=== PATIENT | female | born 1990 | race Caucasian/White ===

== ENCOUNTER 2024-01-06 08:25 | Outpatient (OUT) | payer OTHER, SELFPAY ==
--- NOTE | 2024-01-06 08:28 | US_ITS ---
[address] [address] Patient Name: JEANNETTE CHOI MRN: [id number] date: 1990 Sex: F Assigned Patient Location: [facility] Current Patient Location: [facility] Accession/Order Number: [id number] Exam Date: 01/06/2024 08:28 Report Date: 01/06/2024 09:13 At the request of: JORGE LUIS BRADSHAW Procedure: US OB transvaginal EXAMINATION: US OB transvaginal HISTORY: MISSED MENSES COMPARISON: No relevant comparison available. FINDINGS: GESTATIONAL SAC: Present and normal appearing. YOLK SAC: Present and normal appearing. POLE: Present and normal appearing. CARDIAC: Present. UTERUS: Normal size and appearance. OVARIES: Right: Normal. Left: Normal. CERVIX: 4.8 cm in length and closed. CUL-DE-SAC: Normal. OTHER: None. AGE BY LMP: 8 weeks 5 days ARMANI BY LMP: 08/12/2024 AGE BY US CRL: 8 weeks 2 days ARMANI BY US CRL: 08/15/2024 US/US OB transvaginal IMPRESSION: 1. Single live intrauterine . Electronically authenticated by: SALMA DESHPANDE Date: 01/06/2024 09:13
== END 2024-01-06 08:26 | disposition home or self-care (01) ==
LOC: NOMS 08:25
PROVIDERS: Visit Provider Obstetrics & Gynecology
DX: Z34.91 Encounter for supervision of normal pregnancy, unspecified, first trimester (principal); Z3A.08 8 weeks gestation of pregnancy; N92.6 Irregular menstruation, unspecified
CPT/HCPCS: 76817

== ENCOUNTER 2024-01-27 15:27 | Outpatient (OUT) | payer OTHER, SELFPAY ==
[2024-01-27 15:53] LABS: Basophils Percent Auto 0.4 % (0.2-2.0); Eosinophils Absolute Auto 0.1 10^3/uL (0.0-0.7); Eosinophils Percent Auto 1.1 % (0.9-7.0); Hematocrit 40.3 % (36.0-48.0); Hemoglobin 13.3 g/dL (12.0-16.0); Immature Granulocytes Abs Auto 0.04 10^3/uL (0.00-0.03); Immature Granulocytes Pct Auto 0.4 % (0.0-0.5); Lymphocytes Absolute Auto 2.2 10^3/uL (1.2-3.8); Lymphocytes Percent Auto 19.6 % (20.5-60.0); Mean Corpuscular Hemoglobin 30.8 pg (26.7-34.0); Mean Corpuscular Volume 93.3 fL (81.0-99.0); Mean Platelet Volume 9.5 fL (9.5-13.5); Monocytes Absolute Auto 0.8 10^3/uL (0.3-0.8); Monocytes Percent Auto 6.7 % (1.7-12.0); Neutrophils Absolute Auto 8.1 10^3/uL (1.4-6.5); Neutrophils Percent Auto 71.8 % (43.0-75.0); Platelet Count 329 10^3/uL (150-450); Red Blood Count 4.32 10^6/uL (4.20-5.40); Red Cell Distribution Width 12.9 % (11.0-15.0); White Blood Count 11.3 10^3/uL (4.0-11.0)
[2024-01-27 16:09] LABS: Estimated Average Glucose 108 mg/dL; Glycohemoglobin A1C 5.4 % (4.5-6.2)
[2024-01-29 08:08] LABS: HBsAg Screen Negative (Negative); HCV Ab Non Reactive (Non Reactive); HIV Ab/p24 Ag Screen Non Reactive (Non Reactive); Rubella Antibodies, IgG 9.62 index (Immune >0.99)
[2024-01-29 09:07] LABS: Rapid Plasma Reagin, Quant Non Reactive titer (NonRea<1:1)
== END 2024-01-27 15:28 | disposition home or self-care (01) ==
LOC: LAB 15:27
PROVIDERS: Visit Provider Obstetrics & Gynecology
DX: O26.819 Pregnancy related exhaustion and fatigue, unspecified trimester (principal); N92.6 Irregular menstruation, unspecified; Z3A.00 Weeks of gestation of pregnancy not specified
CPT/HCPCS: 36415; 83036; 85025; 86592; 86762; 86803; 86850; 86900; 86901; 87086; 87340; 87389

== ENCOUNTER 2024-03-05 21:30 | Outpatient (REF) | payer OTHER, SELFPAY ==
--- OUTSIDE RECORDS SUMMARY | 2024-03-05 21:33 | XMS_ITS | CCD ---
Author Organization [facility]ini[facility] Care Team Providers Care Global Supply Chain Director Name Role Phone HARSHAL, DR STEVENS Attending Unavailable KARASIK, DR STEVENS Admitting Unavailable KARASIK, DR STEVENS Attending Unavailable KARASIK, DR STEVENS Admitting Unavailable LEEANN, DR KANG Consulting Unavailable LEEANN, DR KANG Attending Unavailable LEEANN, DR KANG Admitting Unavailable LEEANN, DR KANG Procedure Practitioner Unavailab le LEEANN, DR KANG Attending Unavailable LEEANN, DR KANG Admitting Unavailable LEEANN, DR KANG Attending Unavailable LEEANN, DR KANG Admitting Unavailable KARASIK, DR STEVENS Attending Unavailable KARASIK, DR STEVENS Admitting Unavailable KARASIK, DR STEVENS Consulting Unavailable KARASIK, DR STEVENS Attending Unavailable KARASIK, DR STEVENS Admitting Unavailable KARASIK, DR STEVENS Consulting Unavailable KARASIK, DR STEVENS Attending Unavailable KARASIK, DR STEVENS Admitting Unavailable KARASIK, DR STEVENS Consulting Unavailable KARASIK, DR STEVENS Attending Unavailable KARASIK, DR STEVENS Admitting Unavailable WEST, DR ALONSO Deleon Consulting Unavailable KARASIK, DR STEVENS Consulting Unavailable KARASIK, DR STEVENS Attending Unavailable KARASIK, DR STEVENS Admitting Unavailable WEST, DR ALONSO Deleon Consulting Unavailable KARASIK, DR STEVENS Consulting Unavailable KARASIK, DR STEVENS Attending Unavailable KARASIK, DR STEVENS Admitting Unavailable KARASIK, DR STEVENS Consulting Unavailable KARASIK, DR STEVENS Attending Unavailable KARASIK, DR STEVENS Admitting Unavailable KARASIK, DR STEVENS Consulting Unavailable KARASIK, DR STEVENS Attending Unavailable KARASIK, DR STEVENS Admitting Unavailable KARASIK, DR STEVENS Consulting Unavailable KARASIK, DR STEVENS Attending Unavailable KARASIK, DR STEVENS Admitting Unavailable KARASIK, DR STEVENS Consulting Unavailable KARASIK, DR STEVENS Attending Unavailable KARASIK, DR STEVENS Admitting Unavailable HARSHAL, DR STEVENS Consulting Unavailable HARSHAL, DR STEVENS Attending Unavailable HARSHAL, DR STEVENS Admitting Unavailable JORGE LUIS BRADSHAW Attending Unavailable EMILY WHITMORE Attending Unavailable EMILY WHITMORE Referring Unavailable EMILY WHITMORE Attending Unavailable EMILY WHITMORE Attending Unavailable DOLKAYLEE, EMILY Grimaldo Attending Unavailable JORGE LUIS BRADSHAW Attending Unavailable Allergies Allergy Classification Reported Allergen(s) Allergy Type Date of Onset Reaction(s) Facility (1 source) Penicillin Drug Allergy [facility] Repository Problems Active Problems Problem Classification Problem Date Documented Date Episodic/Chronic Menstrual disorders (4 sources) Irregular menstruation, unspecified; Translations: [IRREGULAR MENSTRUATION UNSPECIFIED] Onset: 06-23-2021 Chronic Other female genital disorders (4 sources) Unspecified dyspareunia; Translations: [UNSPECIFIED DYSPAREUNIA] Onset: 03-24-2022 Chronic Other screening for suspected conditions (not mental disorders or infectious disease) (18 sources) Encounter for screening for lipoid disorders; Translations: [Encounter for screening for Streptococcus B] Onset: 06-28-2021 Episodic Past or Other Problems Problem Classification Problem Date Documented Date Episodic/Chronic Diabetes mellitus without complication (4 sources) Hyperglycemia, unspecified; Translations: [HYPERGLYCEMIA UNSPECIFIED] Onset: 2021 Episodic Immunizations and screening for infectious disease (1 source) Contact with and (suspected) exposure to infections with a predominantly sexual mode of transmission; Translations: [CONTCT W EXPOS INFECT SEXUAL TRNSMS] Onset: 06-28-2021 Episodic OB-related trauma to perineum and vulva (1 source) Second degree perineal laceration during delivery; Translations: [SECOND DEG PERINEAL LAC DUR DELIV] Onset: 01-12-2022 Episodic Other and delivery including normal (20 sources) Encounter for care and examination of lactating mother; Translations: [Encounter for routine follow-up] Onset: 06-21-2021 Episodic Residual codes; unclassified (1 source) 39 weeks gestation of ; Translations: [39 WEEKS GESTATION OF ] Onset: 01-12-2022 Episodic Results Test Name Value Interpretation Reference Range Facility LIPID PROFILEon 03-29-2022 CHOL-HDL RATIO NORM SEE BELOW Normal [facility] Comment on above: Result Comment: 3.3 - 4.4 LOW RISK 4.4 - 7.1 AVERAGE RISK 7.1 - 11.0 MODERATE RISK >11.0 HIGH RISK Performed By: #### L IPID #### [facility] [address] [address] [address] Parth Lucero Cholesterol [Mass/Vol] 197 mg/dL Normal <=200 [facility] Comment on above: Performed By: #### L IPID #### [facility] [address] [address] [address] Parth Lucero Cholesterol in HDL [Mass/Vol] 66 mg/dL Critically high 40-60 [facility] Comment on above: Performed By: #### L IPID #### [facility] [address] [address] [address] Parth Lucero Cholesterol in LDL [Mass/Vol] 120.0 mg/dL Normal [facility] Comment on above: Performed By: #### L IPID #### [facility] [address] [address] [address] Parth Lucero Cholesterol.total/Cho lesterol in HDL [Mass ratio] 3.0 {ratio} Normal [facility] Comment on above: Performed By: #### L IPID #### [facility] [address] [address] [address] Parth Lucero HDL NORMAL > or = 60 mg/dl - LO W CARDIOVASCULAR RISK <40 mg/dl - HIGH CARDIOVASCULAR RISK Normal [facility] Comment on above: Performed By: #### L IPID #### [facility] [address] [address] [address] Parth Lucero LDL CALC NORMAL SEE BELOW Normal [facility] Comment on above: Result Comment: <100 mg/dl OPTIMAL 100 - 129 mg/dl NEAR OR ABOVE OPTIMAL 130 - 159 mg/dl BORDERLINE HIGH 160 - 189 mg/dl HIGH >190 mg/dl VERY HIGH Performed By: #### L IPID #### [facility] [address] [address] [address] Parth Lucero Triglyceride [Mass/Vol] 55 mg/dL Normal <=150 [facility] Comment on above: Performed By: #### L IPID #### [facility] [address] [place] [address] Dr. Parth Lucero VLDL CALC 11.0 mg/dL Normal [facility] Comment on above: Performed By: #### L IPID #### [facility] [address] [place] [address] Dr. Parth Lucero CBC AUTO DIFFon 01-08-2022 BASO # 0.0 103/ul Normal 0.0-0.1 [facility] Comment on above: Performed By: #### [id number] #### [facility] [address] [place] [address] Dr. Parth Lucero Basophils/100 WBC (Bld) 0.3 % Normal 0.2-2.0 [facility] Comment on above: Performed By: #### 4 [id number] #### [facility] [address] [place] [address] Dr. Parth Lucero EO # 0.1 103/ul Normal 0.0-0.7 [facility] Comment on above: Performed By: #### 4 [id number] #### [facility] [address] [place] [address] Dr. Parth Lucero Eosinophils/100 WBC (Bld) 0.4 % Critically low 0.9-7.0 [facility] Comment on above: Performed By: #### 4 [id number] #### [facility] [address] [place] [address] Dr. Parth Lucero Erythrocyte distribution width (RBC) [Ratio] 13.4 % Normal 11.0-15.0 [facility] Comment on above: Performed By: #### [id number] #### [facility] [address] [place] [address] Dr. Parth Lucero Hematocrit (Bld) [Volume fraction] 36.0 % Normal 36.0-48.0 [facility] Comment on above: Performed By: #### 4 [id number] #### [facility] [address] [place] [address] Dr. Parth Lucero Hemoglobin (Bld) [Mass/Vol] 12.1 g/dL Normal 12.0-16.0 [facility] Comment on above: Performed By: #### 4 [id number] #### [facility] [address] [address] [address] Parth Lucero IG # 0.10 10e3/ul Critically high 0.00-0.03 [facility] Comment on above: Performed By: #### 4 [id number] #### [facility] [address] [address] [address] Parth Lucero IG % 0.7 % Critically high 0.0-0.5 [facility] Comment on above: Performed By: #### 4 [id number] #### [facility] [address] [address] [address] Parth Lucero LYMPH # 2.1 103/ul Normal 1.2-3.8 [facility] Comment on above: Performed By: #### 4 [id number] #### [facility] [address] [place] [address] Dr. Parth Lucero Lymphocytes/100 WBC (Bld) 14.0 % Critically low 20.5-60.0 [facility] Comment on above: Performed By: #### 4 [id number] #### [facility] [address] [address] [address] Parth Lucero MANUAL DIFF REQ NO Normal [facility] Comment on above: Performed By: #### 4 [id number] #### [facility] [address] [address] [address] Parth Lucero MCH (RBC) [Entitic mass] 31.0 pg Normal 26.7-34.0 [facility] Comment on above: Performed By: #### [id number] #### [facility] [address] [address] [address] Parth Lucero MCHC (RBC) [Mass/Vol] 33.6 g/dL Normal 29.9-35.2 [facility] Comment on above: Performed By: #### 4 [id number] #### [facility] [address] [address] [address] Parth Lucero MCV (RBC) [Entitic vol] 92.3 fL Normal 81.0-99.0 [facility] Comment on above: Performed By: #### 4 [id number] #### [facility] [address] [place] [address] Dr. Parth Lucero MONO # 1.2 103/ul Critically high 0.3-0.8 [facility] Comment on above: Performed By: #### 4 [id number] #### [facility] [address] [place] [address] Dr. Parth Lucero Monocytes/100 WBC (Bld) 7.7 % Normal 1.7-12.0 [facility] Comment on above: Performed By: #### 4 [id number] #### [facility] [address] [place] [address] Dr. Parth Lucero NEUT # 11.7 103/ul Critically high 1.4-6.5 [facility] Comment on above: Performed By: #### 4 [id number] #### [facility] [address] [place] [address] Dr. Parth Lucero Neutrophils/100 WBC (Bld) 76.9 % Critically high 43.0-75.0 [facility] Comment on above: Performed By: #### 4 [id number] #### [facility] [address] [place] [address] Dr. Parth Lucero Platelet mean volume (Bld) [Entitic vol] 10.0 fL Normal 9.5-13.5 [facility] Comment on above: Performed By: #### 4 [id number] #### [facility] [address] [place] [address] Dr. Parth Lucero PLT 231 103/ul Normal 150-450 [facility] Comment on above: Performed By: #### 4 [id number] #### [facility] [address] [place] [address] Dr. Parth Lucero RBC 3.90 106/ul Critically low 4.20-5.40 [facility] Comment on above: Performed By: #### 4 [id number] #### [facility] [address] [place] [address] Dr. Parth Lucero WBC 15.2 103/ul Critically high 4.0-11.0 [facility] Comment on above: Performed By: #### 4 [id number] #### [facility] [address] [place] [address] Dr. Parth Lucero CBC AUTO DIFFon 01-07-2022 BASO # 0.0 103/ul Normal 0.0-0.1 [facility] Comment on above: Performed By: #### C BC #### [facility] [address] [place] [address] Dr. Parth Lucero Basophils/100 WBC (Bld) 0.4 % Normal 0.2-2.0 [facility] Comment on above: Performed By: #### C BC #### [facility] [address] [place] [address] Dr. Parth Lucero EO # 0.1 103/ul Normal 0.0-0.7 [facility] Comment on above: Performed By: #### C BC #### [facility] [address] [place] [address] Dr. Parth Lucero Eosinophils/100 WBC (Bld) 1.1 % Normal 0.9-7.0 [facility] Comment on above: Performed By: #### C BC #### [facility] [address] [place] [address] Dr. Parth Lucero Erythrocyte distribution width (RBC) [Ratio] 13.3 % Normal 11.0-15.0 [facility] Comment on above: Performed By: #### C BC #### [facility] [address] [place] [address] Dr. Parth Lucero Hematocrit (Bld) [Volume fraction] 39.2 % Normal 36.0-48.0 [facility] Comment on above: Performed By: #### C BC #### [facility] [address] [place] [address] Dr. Parth Lucero Hemoglobin (Bld) [Mass/Vol] 13.3 g/dL Normal 12.0-16.0 [facility] Comment on above: Performed By: #### C BC #### [facility] [address] [place] [address] Dr. Parth Lucero IG # 0.10 10e3/ul Critically high 0.00-0.03 [facility] Comment on above: Performed By: #### C BC #### [facility] [address] [place] [address] Dr. Parth Lucero IG % 1.0 % Critically high 0.0-0.5 [facility] Comment on above: Performed By: #### C BC #### [facility] [address] [place] [address] Dr. Parth Lucero LYMPH # 1.8 103/ul Normal 1.2-3.8 [facility] Comment on above: Performed By: #### C BC #### [facility] [address] [place] [address] Dr. Parth Lucero Lymphocytes/100 WBC (Bld) 18.0 % Critically low 20.5-60.0 [facility] Comment on above: Performed By: #### C BC #### [facility] [address] [place] [address] Dr. Parth Lucero MANUAL DIFF REQ NO Normal [facility] Comment on above: Performed By: #### C BC #### [facility] [address] [place] [address] Dr. Parth Lucero MCH (RBC) [Entitic mass] 31.1 pg Normal 26.7-34.0 [facility] Comment on above: Performed By: #### C BC #### [facility] [address] [place] [address] Dr. Parth Lucero MCHC (RBC) [Mass/Vol] 33.9 g/dL Normal 29.9-35.2 [facility] Comment on above: Performed By: #### C BC #### [facility] [address] [place] [address] Dr. Parth Lucero MCV (RBC) [Entitic vol] 91.8 fL Normal 81.0-99.0 [facility] Comment on above: Performed By: #### C BC #### [facility] [address] [place] [address] Dr. Parth Lucero MONO # 1.1 103/ul Critically high 0.3-0.8 [facility] Comment on above: Performed By: #### C BC #### [facility] [address] [place] [address] Dr. Parth Lucero Monocytes/100 WBC (Bld) 11.3 % Normal 1.7-12.0 [facility] Comment on above: Performed By: #### C BC #### [facility] [address] [place] [address] Dr. Parth Lucero NEUT # 6.9 103/ul Critically high 1.4-6.5 [facility] Comment on above: Performed By: #### C BC #### [facility] [address] [place] [address] Dr. Parth Lucero Neutrophils/100 WBC (Bld) 68.2 % Normal 43.0-75.0 [facility] Comment on above: Performed By: #### C BC #### [facility] [address] [place] [address] Dr. Parth Lucero Platelet mean volume (Bld) [Entitic vol] 10.6 fL Normal 9.5-13.5 [facility] Comment on above: Performed By: #### C BC #### [facility] [address] [place] [address] Dr. Parth Lucero PLT 258 103/ul Normal 150-450 [facility] Comment on above: Performed By: #### C BC #### [facility] [address] [place] [address] Dr. Parth Lucero RBC 4.27 106/ul Normal 4.20-5.40 [facility] Comment on above: Performed By: #### C BC #### [facility] [address] [place] [address] Dr. Parth Lucero WBC 10.1 103/ul Normal 4.0-11.0 [facility] Comment on above: Performed By: #### C BC #### [facility] [address] [place] [address] Dr. Parth Lucero [facility]19 SARS-CoV-2 (COVID-19) RNA RIGOBERTO+probe Ql (Unsp spec) Not detected Normal NOT DETECTED [facility] Comment on above: Result Comment: When diagnostic testing is negative, the possibility of a false negative should be considered in the context of a patient's recent exposures and the presence of clinical signs and symptoms consistent with SARS-CoV-2. This test is not yet approved or cleared by the [place] FDA. When there are no FDA-approved or cleared tests available, and other criteria are met, FDA can make tests available under an emergency access mechanism called an Emergency Use Authorization (EUA). The EUA for this test is supported by the [employer] of Health and Human Service's declaration that circumstances exist to justify the emergency use of in vitro diagnostics for the detection and/or diagnosis of the virus that causes COVID-19. This EUA will remain in effect for the duration of the COVID-19 declaration justifying emergency of IVDs, unless it is terminated or revoked by the FDA (after which the test may no longer be used). Performed By: #### 4 [id number] #### [facility] [address] [place] [address] Dr. Parth Lucero DRUG SCREEN RAPID (URINE)on 01-07-2022 AMP Negative Normal NEGATIVE [facility] Comment on above: Performed By: #### L IPID #### [facility] [address] [place] [address] Dr. Parth Lucero BAR Negative Normal NEGATIVE [facility] Comment on above: Performed By: #### L IPID #### [facility] [address] [place] [address] Dr. Parth Lucero BUP Negative Normal NEGATIVE [facility] Comment on above: Performed By: #### L IPID #### [facility] [address] [place] [address] Dr. Parth Lucero BZO Negative Normal NEGATIVE [facility] Comment on above: Performed By: #### L IPID #### [facility] [address] [place] [address] Dr. Parth Lucero AMINTA Negative Normal NEGATIVE [facility] Comment on above: Performed By: #### L IPID #### [facility] [address] [place] [address] Dr. Parth Lucero CUT-OFFS SEE BELOW Normal [facility] Comment on above: Result Comment: AMP (Amphetamine): 500ng/mL, BAR (Barbituates): 200 ng/mL, BZO (Benzodiazepines): 150 ng/mL, BUP (Buprenorphine): 10 ng/mL, AMINTA (Cocaine): 150 ng/mL, mAMP (Methamphetamine): 500 ng/mL, MTD (Methadone): 200 ng/mL, OPI (Opiates): 100 ng/mL, OXY (Oxycodone): 100 ng/mL, PCP (Phencyclidine): 25 ng/mL, PPX (Propoxyphene): 300 ng/mL, THC (Cannabinoids): 50 ng/mL, TCA (Trycyclic Antidepressants): 300 ng/mL Performed By: #### L IPID #### [facility] [address] [place] [address] Dr. Parth Lucero DRUG CUT HEADER DRUG CLASS TEST SYSTEM CUT-OFF CONCENTRATIONS ARE FOLLOWS: Normal [facility] Comment on above: Performed By: #### L IPID #### [facility] [address] [place] [address] Dr. Parth Lucero mAMP Negative Normal NEGATIVE [facility] Comment on above: Performed By: #### L IPID #### [facility] [address] [place] [address] Dr. Parth Lucero MTD Negative Normal NEGATIVE [facility] Comment on above: Performed By: #### L IPID #### [facility] [address] [place] [address] Dr. Parth Lucero OPI Negative Normal NEGATIVE [facility] Comment on above: Performed By: #### L IPID #### [facility] [address] [place] [address] Dr. Parth Lucero OXY Negative Normal NEGATIVE [facility] Comment on above: Performed By: #### L IPID #### [facility] [address] [place] [address] Dr. Parth Lucero PCP Negative Normal NEGATIVE [facility] Comment on above: Performed By: #### L IPID #### [facility] [address] [place] [address] Dr. Parth Lucero PPX Negative Normal NEGATIVE [facility] Comment on above: Performed By: #### L IPID #### [facility] [address] [place] [address] Dr. Parth Lucero TCA Negative Normal NEGATIVE [facility] Comment on above: Performed By: #### L IPID #### [facility] [address] [address] [address] Parth Lucero THC Negative Normal NEGATIVE [facility] Comment on above: Performed By: #### L IPID #### [facility] [address] [place] [address] Dr. Parth Lucero TYPE AND SCREENon 01-07-2022 TYPE AND SCREEN Negative Normal [facility] Comment on above: Performed By: #### T NS #### [facility] [address] [place] [address] Dr. Parth Lucero GROUP B STREP CULTUREon 11-19 S. agalactiae Ag Ql (Unsp spec) Culture Observations: NEGATIVE FOR GROUP B STREPTOCOCCUS. Normal [facility] Comment on above: Performed By: #### 4 [id number] #### [facility] [address] [place] [address] Dr. Parth Lucero GTT 3 HR PREGon 2021 Glucose [Mass/Vol] 93 mg/dL Normal 74-106 [facility] Comment on above: Performed By: #### G TT3P #### [facility] [address] [place] [address] Dr. Parth Lucero Glucose [Mass/Vol] 173 mg/dL Normal [facility] Comment on above: Performed By: #### G TT3P #### [facility] [address] [place] [address] Dr. Parth Lucero Glucose [Mass/Vol] 149 mg/dL Normal [facility] Comment on above: Performed By: #### G TT3P #### [facility] [address] [place] [address] Dr. Parth Lucero Glucose [Mass/Vol] 128 mg/dL Normal [facility] Comment on above: Performed By: #### G TT3P #### [facility] [address] [place] [address] Dr. Parth Lucero GLUCOSE - 1HRon 10-09-2021 Glucose [Mass/Vol] 150 mg/dL Critically high 74-106 T [facility] Comment on above: Performed By: #### G LU1HR #### [facility] [address] [place] [address] Dr. Parth Lucero HEMOGRAM AND PLATELon 2021 Hematocrit (Bld) [Volume fraction] 37.6 % Normal 36.0-48.0 [facility] Comment on above: Performed By: #### H H #### [facility] [address] [place] [address] Dr. Parth Lucero Hemoglobin (Bld) [Mass/Vol] 12.3 g/dL Normal 12.0-16.0 [facility] Comment on above: Performed By: #### H H #### [facility] [address] [place] [address] Dr. Parth Lucero MCH (RBC) [Entitic mass] 31.2 pg Normal 26.7-34.0 [facility] Comment on above: Performed By: #### H H #### [facility] [address] [place] [address] Dr. Parth Lucero MCHC (RBC) [Mass/Vol] 32.7 g/dL Normal 29.9-35.2 [facility] Comment on above: Performed By: #### H H #### [facility] [facility] [address] [place] [address] Dr. Parth Lucero MCV (RBC) [Entitic vol] 95.4 fL Normal 81.0-99.0 [facility] Comment on above: Performed By: #### H H #### [facility] [address] [place] [address] Dr. Parth Lucero PLT 240 103/ul Normal 150-450 [facility] Comment on above: Performed By: #### H H #### [facility] [address] [place] [address] Dr. Parth Lucero RBC 3.94 106/ul Critically low 4.20-5.40 [facility] Comment on above: Performed By: #### H H #### [facility] [address] [place] [address] Dr. Parth Lucero WBC 9.7 103/ul Normal 4.0-11.0 [facility] Comment on above: Performed By: #### H H #### [facility] [address] [place] [address] Dr. Parth Lucero PAP ACOG PANEL 2: 21 to 29on 09-02-2021 . . Normal [facility] Comment on above: Performed By: #### 4 [id number] #### [facility] [address] [place] [address] Dr. Parth Lucero Age Gdln ACOG Testing - [facility] Comment on above: Performed By: #### [id number] #### [facility] [address] [place] [address] Dr. Parth Lucero DIAGNOSIS: Comment [facility] Comment on above: Result Comment: NEGA TIVE FOR INTRAEPITHELIAL LESION OR MALIGNANCY. Performed By: #### 4 [id number] #### [facility] [address] [place] [address] Dr. Parth Lucero Methodology: Comment [facility] Comment on above: Result Comment: This liquid based ThinPrep(R) pap test was screened with the use of an image guided system. Performed By: #### 4 [id number] #### [facility] [address] [place] [address] Dr. Parth Lucero Note: Comment [facility] Comment on above: Result Comment: The Pap smear is a screening test designed to aid in the detection of premalignant and malignant conditions of the uterine cervix. It is not a diagnostic procedure and should not be used as the sole means of detecting cervical cancer. Both false-positive and false-negative reports do occur. . Performed By: #### [id number] #### [facility] [address] [place] [address] Dr. Parth Lucero Performed by: Comment [facility] Comment on above: Result Comment: Vivian Paris, Jewel Bearing Turner (ASCP) Performed By: #### 4 [id number] #### [facility] [address] [address] [address] Parth Lucero Reflex Criteria: Comment Normal [facility] Comment on above: Result Comment: The HPV DNA reflex criteria were not met with this specimen result therefore, no HPV testing was performed. . Performed By: #### 4 [id number] #### [facility] [address] [address] [address] Parth Lucero Specimen adequacy: Comment Normal [facility] Comment on above: Result Comment: Sati sfactory for evaluation. No endocervical component is identified. Performed By: #### 4 [id number] #### [facility] [address] [address] [address] Parth Lucero US PREG ANATOMY SINGLEon US PREG ANATOMY SINGLE EXAMINATION: US PREG ANATOMY SINGLE HISTORY: anatomy study COMPARISON: 06/15/2021 TECHNIQUE: Transabdominal sonographic examination was performed for obstetrical and evaluation. FINDINGS: Number: 1 Heart Rate: 150 H.B. /min Amniotic Fluid Volume: Subjectively normal position: Cephalic presentation, longitudinal lie Placental Location: Anterior, grade 0. Placental edge 6.5 cm from the cervical os Cervix Length: 4.4 cm, closed Normal structures: Cerebellum. Choroid plexus. Cisterna magna. Lateral cerebral ventricles. Orbits. Midline falx. Hard palate. 4-chamber heart. RVOT. LVOT. Stomach. Kidneys. Bladder. Umbilical cord insertion into abdomen. 3 vessel cord. Cervical spine. Thoracic spine. Lumbar spine. Sacral spine. Right upper extremity. Left upper extremity. Right lower extremity. Left lower extremity. Suboptimally seen: None. Abnormalities/Other: None BIOMETRY: BPD: 5.1 cm 21 weeks 3 days HC: 18.4 cm 20 weeks 5 days AC: 15.7 cm 20 weeks 6 days FL: 3.7 cm 21 weeks 4 days EFW:14 ounces, 47% by ultrasound, 56% by expected EDC; FL/AC: 0.941101 FL/BPD: 0.732325 HC/AC: 1.480492 GESTATIONAL AGE: Age by EDC: 21 weeks 0 days ARMANI by EDC: 01/12/2022 Age by current US: 20 weeks 1 day ARMANI by current US: 01/11/2022 IMPRESSION: Normal anatomy scan *Reference: [employer] Practice Guideline for the performance of Obstetric Ultrasound Examinations, March 20, 2007. Electronically authenticated by: ALONSO SANDERS Date: 2021-09-01 16:20 Normal [facility] CHLAMYDIA/GONOCOCCUS RIGOBERTO (SW AB/URINE/PAPon 08-29-2021 Chlamydia trachomatis, RIGOEBRTO Negative Normal Negative [facility] Comment on above: Performed By: #### L IPID #### [facility] [address] [address] [address] Parth Lucero Neisseria gonorrhoeae, RIGOBERTO Negative Normal Negative [facility] Comment on above: Performed By: #### L IPID #### [facility] [address] [address] [address] Parth Lucero AFP MATERNAL FOR SPINA BIFID Aon 08-18-2021 AFP MoM 1.13 Normal [facility] Comment on above: Performed By: #### [id number] #### [facility] [address] [address] [address] Parth Lucero AFP Value 52.2 ng/mL Normal [facility] Comment on above: Performed By: #### 4 [id number] #### [facility] [address] [address] [address] Parth Lucero AFP, Serum for Spina Bifida Report Normal [facility] Comment on above: Performed By: #### 4 [id number] #### [facility] [address] [address] [address] Parth Lucero Comment Comment Normal [facility] Comment on above: Result Comment: Ruth Viveros, Ph.D., [facility] Director . References: Available Upon Request. . Multiples Of Median Cutoffs For AFP Elevations Ricardo 2.5 Black 2.8 IDD 2.0 Twins 4.5 Abbreviation Definitions IDD - Insulin Dep Diabetes OSBR - Open Spina Bifida Risk . For further inquiries contact [facility] at [phone]. Performed By: #### 4 [id number] #### [facility] [address] [address] [address] Parth Lucero Gest Age Collection Date 18.0 weeks Normal [facility] Comment on above: Performed By: #### 4 [id number] #### [facility] [address] [place] [address] Dr. Parth Lucero Gestat, Age Based on LMP Normal [facility] Comment on above: Result Comment: Reca lculations are not recommended when gestational dating by LMP and ultrasound are within 10 days. Performed By: #### 4 [id number] #### [facility] [address] [place] [address] Dr. Parth Lucero Insulin Dep Diabetes No Normal [facility] Comment on above: Performed By: #### 4 [id number] #### [facility] [address] [place] [address] Dr. Parth Lucero Interpretation Comment Normal [facility] Comment on above: Result Comment: Inte rpretation: Screen Negative . This result is screen negative for OSB. The AFP MoM calculated is based on the gestational age provided. MS-AFP can identify up to 80% of open neural tube defects. Closed neural tube defects and some open defects may not be detected by this test. This test does not screen for Down Syndrome or Trisomy 18. If screening for Down Syndrome or Trisomy 18 is desired, contact [facility] [employer] [facility] to discuss available options. The [employer] recommends amniocentesis be offered to women age 35 and older. Performed By: #### 4 [id number] #### [facility] [address] [place] [address] Dr. Parth Lucero [age] Normal [facility] Comment on above: Performed By: #### 4 [id number] #### [facility] [address] [place] [address] Dr. Parth Lucero Multiple Gestation No Normal [facility] Comment on above: Performed By: #### 4 [id number] #### [facility] [address] [place] [address] Dr. Parth Lucero OSBR Risk 1 IN 8106 Normal [facility] Comment on above: Performed By: #### 4 [id number] #### [facility] [address] [place] [address] Dr. Parth Lucero PDF . Normal [facility] Comment on above: Result Comment: This test was developed and its performance characteristics determined by [employer]. It has not been cleared or approved by the Food and Drug Administration. Performed By: #### 4 [id number] #### [facility] [address] [place] [address] Dr. Parth Lucero Race Normal [facility] Comment on above: Performed By: #### 4 [id number] #### [facility] [address] [place] [address] Dr. Parth Lucero Test Results: Negative Normal [facility] Comment on above: Performed By: #### 4 [id number] #### [facility] [address] [place] [address] Dr. Parth Lucero HEP B SURFACE ANTIGEN SCREEN on 06-25-2021 HBsAg Screen Negative Normal Negative [facility] Comment on above: Performed By: #### H BSANS #### [facility] [address] [place] [address] Dr. Parth Lucero HEPATITIS C VIRUS AB W/ REFL EX QUANTon 06-25-2021 HCV AB <0.1 Normal 0.0-0.9 [facility] Comment on above: Performed By: #### 4 [id number] #### [facility] [address] [place] [address] Dr. Parth Lucero Interpretation: Comment Normal [facility] Comment on above: Result Comment: Nega tive Not infected with HCV, unless recent infection is suspected or other evidence exists to indicate HCV infection. Performed By: #### 4 [id number] #### [facility] [address] [place] [address] Dr. Parth Lucero HIV 1 AND 2 WITH REFLEXon HIV Screen 4th Generation wRfx Non-Reactive Normal Non Reactive [facility] Comment on above: Performed By: #### L IPID #### [facility] [address] [place] [address] Dr. Parth Lucero RPR QUANTon 06-25-2021 Rapid Plasma Reagin, Quant Non-Reactive Normal NonRea<1:1 [facility] Comment on above: Performed By: #### L IPID #### [facility] [address] [place] [address] Dr. Parth Lucero RUBELLA AB IGGon 06-25-2021 Rubella Antibodies, IgG 13.00 index Normal Immune >0.99 [facility] Comment on above: Result Comment: Non- immune <0.90 Equivocal 0.90 - 0.99 Immune >0.99 Performed By: #### 4 [id number] #### [facility] [address] [place] [address] Dr. Parth Lucero CBC AUTO DIFFon 06-23-2021 BASO # 0.0 103/ul Normal 0.0-0.1 [facility] Comment on above: Performed By: #### L IPID #### [facility] [address] [place] [address] Dr. Parth Lucero Basophils/100 WBC (Bld) 0.3 % Normal 0.2-2.0 [facility] Comment on above: Performed By: #### L IPID #### [facility] [address] [place] [address] Dr. Parth Lucero EO # 0.1 103/ul Normal 0.0-0.7 [facility] Comment on above: Performed By: #### L IPID #### [facility] [address] [place] [address] Dr. Parth Lucero Eosinophils/100 WBC (Bld) 1.1 % Normal 0.9-7.0 [facility] Comment on above: Performed By: #### L IPID #### [facility] [address] [place] [address] Dr. Parth Lucero Erythrocyte distribution width (RBC) [Ratio] 12.7 % Normal 11.0-15.0 [facility] Comment on above: Performed By: #### L IPID #### [facility] [address] [place] [address] Dr. Parth Lucero Hematocrit (Bld) [Volume fraction] 38.2 % Normal 36.0-48.0 [facility] Comment on above: Performed By: #### L IPID #### [facility] [address] [place] [address] Dr. Parth Lucero Hemoglobin (Bld) [Mass/Vol] 13.0 g/dL Normal 12.0-16.0 [facility] Comment on above: Performed By: #### L IPID #### [facility] [address] [place] [address] Dr. Parth Lucero IG # 0.04 10e3/ul Critically high 0.00-0.03 [facility] Comment on above: Performed By: #### L IPID #### [facility] [address] [place] [address] Dr. Parth Lucero IG % 0.4 % Normal 0.0-0.5 [facility] Comment on above: Performed By: #### L IPID #### [facility] [address] [place] [address] Dr. Parth Lucero LYMPH # 2.3 103/ul Normal 1.2-3.8 [facility] Comment on above: Performed By: #### L IPID #### [facility] [address] [place] [address] Dr. Parth Lucero Lymphocytes/100 WBC (Bld) 23.8 % Normal 20.5-60.0 [facility] Comment on above: Performed By: #### L IPID #### [facility] [address] [place] [address] Dr. Parth Lucero MANUAL DIFF REQ NO Normal [facility] Comment on above: Performed By: #### L IPID #### [facility] [address] [place] [address] Dr. Parth Lucero MCH (RBC) [Entitic mass] 31.6 pg Normal 26.7-34.0 [facility] Comment on above: Performed By: #### L IPID #### [facility] [address] [place] [address] Dr. Parth Lucero MCHC (RBC) [Mass/Vol] 34.0 g/dL Normal 29.9-35.2 [facility] Comment on above: Performed By: #### L IPID #### [facility] [address] [place] [address] Dr. Parth Lucero MCV (RBC) [Entitic vol] 92.9 fL Normal 81.0-99.0 [facility] Comment on above: Performed By: #### L IPID #### [facility] [address] [place] [address] Dr. Parth Lucero MONO # 0.8 103/ul Normal 0.3-0.8 [facility] Comment on above: Performed By: #### L IPID #### [facility] [address] [place] [address] Dr. Parth Lucero Monocytes/100 WBC (Bld) 7.6 % Normal 1.7-12.0 [facility] Comment on above: Performed By: #### L IPID #### [facility] [address] [place] [address] Dr. Parth Lucero NEUT # 6.6 103/ul Critically high 1.4-6.5 [facility] Comment on above: Performed By: #### L IPID #### [facility] [address] [place] [address] Dr. Parth Lucero Neutrophils/100 WBC (Bld) 66.8 % Normal 43.0-75.0 [facility] Comment on above: Performed By: #### L IPID #### [facility] [address] [place] [address] Dr. Parth Lucero Platelet mean volume (Bld) [Entitic vol] 9.4 fL Critically low 9.5-13.5 [facility] Comment on above: Performed By: #### L IPID #### [facility] [address] [place] [address] Dr. Parth Lucero PLT 320 103/ul Normal 150-450 [facility] Comment on above: Performed By: #### L IPID #### [facility] [address] [place] [address] Dr. Parth Lucero RBC 4.11 106/ul Critically low 4.20-5.40 [facility] Comment on above: Performed By: #### L IPID #### [facility] [address] [address] [address] Parth Lucero WBC 9.8 103/ul Normal 4.0-11.0 [facility] Comment on above: Performed By: #### L IPID #### [facility] [address] [place] [address] Dr. Parth Lucero CULTURE URINEon 06-23-2021 CULTURE URINE Culture Observations : MODERATE GROWTH OF MIXED GENITAL BERNARDINO. NO POTENTIAL PATHOGENS SEEN. Normal [facility] Comment on above: Performed By: #### U RCX #### [facility] [address] [place] [address] Dr. Parth Lucero GLYCOHEMOGLOBIN A1Con 2021 ADA RECOMMENDATION ADA THERAPEUTIC TARGET 6.0 - 7.0 ACTION SUGGESTED > 7.0 Normal [facility] Comment on above: Performed By: #### A 1C #### [facility] [address] [place] [address] Dr. Parth Lucero Glucose [Mass/Vol] 105 mg/dL Normal [facility] Comment on above: Performed By: #### A 1C #### [facility] [address] [place] [address] Dr. Parth Lucero HbA1c (Bld) [Mass fraction] 5.3 % Normal <=6.0 [facility] Comment on above: Performed By: #### A 1C #### [facility] [address] [place] [address] Dr. Parth Lucero TAYLA BOX TEST PT SEND OUTo n 06-23-2021 SENT TO REF LAB 06/23/2021 Normal [facility] Comment on above: Performed By: #### 4 [id number] #### [facility] [address] [place] [address] Dr. Parth Lucero TYPE AND SCREENon 06-23-2021 TYPE AND SCREEN Negative Normal [facility] Comment on above: Performed By: #### 4 [id number] #### [facility] [address] [place] [address] Dr. Parth Lucero US PREG TVon 06-15-2021 US PREG TV EXAMINATION: US PREG TV HISTORY: Missed period COMPARISON: No relevant comparison available. FINDINGS: Transvaginal images Ricardo intrauterine gestation Gestational sac: Normal morphology, mean sac diameter 4.59 cm, 10 weeks 2 days CRL: 2.88 cm, 9 weeks 5 days Yolk sac: 0.538 cm Heart rate: 160 bpm Cervix: Closed, 4.3 cm The uterus is normal in appearance, anteverted, anteflexed The ovaries are normal in appearance. Clinical age: 9 weeks 6 days Clinical ARMANI: 01/12/2022 Ultrasound age: 9 weeks 5 days Ultrasound ARMANI: 01/13/2022 IMPRESSION: Viable ricardo intrauterine gestation measuring 9 weeks 5 days Electronically authenticated by: ALONSO SANDERS Date: 2021-06-15 09:44 Normal [facility] Auth for Release of Medical Recordson 06-05-2021 Auth for Release of Medical Records [id number] Normal [facility] Vital Signs Date Time Vital Sign Value Performing Clinician Faci lity 08-18-2021 18:08-0500 Body weight 63.[address] RODNEY CAPUTO [facility] Comment on above: Performed By: #### 4 [id number] #### [facility] [address] [place] [address] Dr. Parth Lucero Encounters Encounter Date Encounter Type Care Provider Facility Start: 02-06-2024 End: 02-06-2024 ambulatory JORGE LUIS LEEANN Not Available Start: 01-06-2024 End: 01-09-2024 ambulatory JORGE LUIS LEEANN Not Available Start: 12-07-2023 End: 12-07-2023 ambulatory EMILY D DOLCE Not Available Start: 11-16-2023 End: 11-16-2023 ambulatory EMILY D DOLCE Not Available Start: 10-26-2023 End: 10-26-2023 ambulatory EMILY D DOLCE Not Available Start: 10-12-2023 End: 10-12-2023 ambulatory EMILY D DOLCE Not Available Start: 06-28-2023 End: 06-28-2023 ambulatory JORGE LUIS LEEANN Not Available Start: 03-29-2022 End: 03-30-[address] RODNEY CAPUTO Facility: Start: 03-24-2022 End: 03-25-[address] RODNEY CAPUTO Facility:[facility] Start: 01-20-2022 End: 01-20-[address] JORGE LUIS BRADSHAW Facility:[facility] Start: 01-13-2022 End: 01-20-[address] JORGE LUIS BRADSHAW Facility:[facility] Start: 01-11-2022 End: 01-11-[address] RODNEY CAPUTO Facility:[facility] Start: 01-11-2022 Evaluation and manag ement of inpatient DR RODNEY CAPUTO Facility:[facility] Start: 01-07-2022 End: 01-09-2022 Evaluation and management of inpatient DR JORGE LUIS BRADSHAW Facility:[facility] Start: 12-15-2021 End: 12-15-[address] RODNEY CAPUTO Facility:[facility] Start: 2021 End: 10-17-[address] RODNEY CAPUTO Facility:[facility] Start: 10-09-2021 End: 10-10-[address] RODNEY CAPUTO Facility:[facility] Start: 09-01-2021 End: 09-02-[address] RODNEY CAPUTO Facility:[facility] Start: 08-27-2021 Encounter for gynecological examination (general) (routine) without abnormal findings DR RODNEY CAPUTO [facility] Start: 08-26-2021 End: 08-26-[address] RODNEY CAPUTO Facility:[facility] Start: 08-26-2021 End: 08-26-2021 Encounter for gynecological examination (general) (routine) without abnormal findings DR RODNEY CAPUTO Facility:[facility] Start: 08-11-2021 End: 08-12-[address] RODNEY CAPUTO Facility:[facility] Start: 06-23-2021 End: 06-24-[address] RODNEY CAPUTO Facility:[facility] Start: 06-15-2021 End: 06-16-[address] RODNEY CAPUTO Facility:[facility] Procedures Date Procedure Procedure Detail Performing Clinician Start: 01-07-2022 Delivery of Products of Conception, External Approach DR RODNEY CAPUTO Start: 01-07-2022 Repair Perineum Musc le, Open Approach DR RODNEY CAPUTO Payers Date Payer Category Payer Unknown [id number] 2.16.84 [id number] 1991 Unknown [id number] 2.16.84 0.1.411484.3.579.2.593 1991 Unknown [id number] 2.16.84 0.1.635514.3.579.2.593 1991 Unknown [id number] 2.16.84 0.1.941854.3.579.2.593 1991 Unknown [id number] 2.16.84 0.1.012526.3.579.2.593 1991 Unknown [id number] 2.16.84 0.1.103660.3.579.2.593 1991 Unknown [id number] 2.16.84 0.1.594117.3.579.2.593 1991 Unknown [id number] 2.16.84 0.1.594444.3.579.2.593 1991 Unknown [id number] 2.16.84 0.1.039253.3.579.2.593 1991 Unknown [id number] 2.16.84 0.1.056047.3.579.2.593 1991 Unknown [id number] 2.16.84 0.1.053685.3.579.2.593 1991 Unknown [id number] 2.16.84 0.1.223544.3.579.2.593 1991 Unknown [id number] 2.16.84 0.1.696215.3.579.2.593 1991 Unknown [id number] 2.16.84 0.1.023669.3.579.2.593 1991 Unknown [id number] 2.16.84 0.1.528096.3.579.2.593 1991 Unknown [id number] 2.16.84 0.1.955430.3.579.2.1259 1991 Unknown [id number] 2.16.84 0.1.363121.3.579.2.9 1991 Unknown [id number] 2.16.84 0.1.620340.3.579.2.1258 1991 Unknown [id number] 2.16.84 0.1.457947.3.579.2.1258 1991 Unknown [id number] 2.16.84 0.1.641933.3.579.2.1258 1991 Unknown [id number] 2.16.84 0.1.872958.3.579.2.1258 1991 Unknown [id number] 2.16.84 0.1.109430.3.579.2.1258 1991 Unknown [id number] 2.16.84 0.1.483245.3.579.2.1259 1959 Self-pay 1959 Unknown [id number] Unknown [id number] 2.16.84 0.1.794957.3.579.2.593 Summary Purpose Family History No Family History Records FoundNo Family History Records FoundNo Family History Records Found Advance Directives No Advanced Directives Records FoundNo Advanced Directives Records FoundNo Advanced Directives Records Found Additional Source Comments INFORMATION SOURCE (unrecogn ized section and content) DATE CREATED AUTHOR 06/06/2021 [facility] DATE CREATED AUTHOR AUTHOR'S ORGANIZ ATION 05/12/2022 [facility] DATE CREATED AUTHOR AUTHOR'S ORGANIZ ATION 02/07/2024 [facility] FOR RECORDS PERTAINING TO PATIENTS WHO ARE OR HAVE BEEN ENROLLED IN A CHEMICAL DEPENDENCY/SUBSTANCEABUSE PROGRAM, SOME INFORMATION MAY BE OMITTED. This clinical summary was aggregated from multiple sources. Caution should be exercised in using it in the provision of clinical care. This summary normalizes information from multiple sources, and as a consequence, information in this document may materially change the coding, format and clinical context of patient data. In addition, data may be omitted in some cases. CLINICAL DECISIONS SHOULD BE BASED ON THE PRIMARY CLINICAL RECORDS. [facility] [employer] [facility]. provides no warranty or guarantee of the accuracy or completeness of information in this [id number]
[2024-03-09 18:08] LABS: Age Gdln ACOG Testing Note (.); HPV Aptima Negative (Negative); IGP, Aptima HPV, rfx 16/18,45 Note (.)
== END 2024-03-05 21:31 | disposition home or self-care (01) ==
LOC: LAB 21:30
PROVIDERS: Visit Provider Physician Assistant
DX: Z01.419 Encounter for gynecological examination (general) (routine) without abnormal findings (principal)
CPT/HCPCS: 87624; 88175

== ENCOUNTER 2024-03-28 16:39 | Outpatient (OUT) | payer OTHER, SELFPAY ==
--- OUTSIDE RECORDS SUMMARY | 2024-03-28 16:42 | XMS_ITS | CCD ---
Author Organization [facility] Care Team Providers Care Pc Tech Name Role Phone HARSHAL, DR STEVENS Attending [...] DR STEVENS Admitting Unavailable WEST, DR ALONSO Dleeon Consulting Unavailable KARASIK, DR STEVENS Consulting Unavailable [...] Attending Unavailable KARASIK, DR STEVENS Admitting Unavailable KARASIJennie, DR STEVENS Consulting Unavailable KARASIK, DR STEVENS Attending Unavailable LENOASIJennie, DR STEVENS Admitting Unavailable JORGE LUIS BRADSHAW Attending Unavailable EMILY WHITMORE Attending Unavailable EMILY WHITMORE Referring Unavailable EMILY WHITMORE Attending Unavailable EMILY WHITMORE Attending Unavailable DOLKAYLEE, EMILY Grimaldo Attending Unavailable LEEANNJORGE LUIS WETZEL Attending Unavailable QUINTONBRYAN Attending Unavailable Allergies Allergy Classification Reported Allergen(s) Allergy Type Date of Onset Reaction(s) Facility (1 source) Penicillin Drug Allergy [facility] Repository Problems Active Problems Problem Classification Problem [...] 03-29-2022 CHOL-HDL RATIO NORM SEE BELOW Normal [facility] Comment on above: Result Comment: 3.3 - 4.4 LOW RISK 4.4 - 7.1 AVERAGE RISK 7.1 - 11.0 MODERATE RISK >11.0 HIGH RISK Performed By: #### L IPID #### [facility] Laboratory [address] [address] [address] Parth Lucero Cholesterol [Mass/Vol] 197 mg/dL Normal <=200 [facility] Comment on above: Performed By: #### L IPID #### [facility] [address] [address] [address] Parth Lucero Cholesterol in HDL [Mass/Vol] 66 mg/dL Critically high 40-60 [facility] Comment on above: Performed By: #### L IPID #### [facility] [address] [address] [address] Parth Lucero Cholesterol in LDL [Mass/Vol] 120.0 mg/dL Normal [facility] Comment on above: Performed By: #### L IPID #### [facility] [address] [address] [address] Parth Lucero Cholesterol.total/Cho lesterol in HDL [Mass ratio] 3.0 {ratio} Normal [facility] Comment on above: Performed By: #### L IPID #### [facility] [address] [address] [address] Parth Lucero HDL NORMAL > or = 60 mg/dl - LO W CARDIOVASCULAR RISK <40 mg/dl - HIGH CARDIOVASCULAR RISK Normal [facility] Comment on above: Performed By: #### L IPID #### [facility] [address] [address] [address] Parth Lucero LDL CALC NORMAL SEE BELOW Normal [facility] Comment on above: Result Comment: <100 mg/dl OPTIMAL 100 - 129 mg/dl NEAR OR ABOVE OPTIMAL 130 - 159 mg/dl BORDERLINE HIGH 160 - 189 mg/dl HIGH >190 mg/dl VERY HIGH Performed By: #### L IPID #### [facility] [address] [address] [address] Parth Lucero Triglyceride [Mass/Vol] 55 mg/dL Normal <=150 [facility] Comment on above: Performed By: #### L IPID #### [facility] [address] [place] [address] Dr. Parth Lucero VLDL CALC 11.0 mg/dL Normal [facility] Comment on above: Performed By: #### L IPID #### [facility] [address] [place] [address] Dr. Parth Lucero CBC AUTO DIFFon 01-08-2022 BASO # 0.0 103/ul Normal 0.0-0.1 [facility] Comment on above: Performed By: #### [id number] #### [facility] [address] [place] [address] Dr. Parth Lucero Basophils/100 WBC (Bld) 0.3 % Normal 0.2-2.0 [facility] Comment on above: Performed By: #### [id number] #### [facility] [address] [place] [address] Dr. Parth Lucero EO # 0.1 103/ul Normal 0.0-0.7 [facility] Comment on above: Performed By: #### [id number] #### [facility] [address] [place] [address] Dr. Parth Lucero Eosinophils/100 WBC (Bld) 0.4 % Critically low 0.9-7.0 [facility] Comment on above: Performed By: #### 4 [id number] #### [facility] [address] [place] [address] Dr. Parth Lucero Erythrocyte distribution width (RBC) [Ratio] 13.4 % Normal 11.0-15.0 [facility] Comment on above: Performed By: #### [id number] #### [facility] [address] [place] [address] Dr. Parth Lucero Hematocrit (Bld) [Volume fraction] 36.0 % Normal 36.0-48.0 [facility] Comment on above: Performed By: #### [id number] #### [facility] [address] [place] [address] Dr. Parth Lucero Hemoglobin (Bld) [Mass/Vol] 12.1 g/dL Normal 12.0-16.0 [facility] Comment on above: Performed By: #### [id number] #### [facility] [address] [address] [address] Parth Lucero IG # 0.10 10e3/ul Critically high 0.00-0.03 [facility] Comment on above: Performed By: #### [id number] #### [facility] [address] [address] [address] Parth Lucero IG % 0.7 % Critically high 0.0-0.5 [facility] Comment on above: Performed By: #### [id number] #### [facility] [address] [place] [address] Dr. Parth Lucero LYMPH # 2.1 103/ul Normal 1.2-3.8 [facility] Comment on above: Performed By: #### [id number] #### [facility] [address] [place] [address] Dr. Parth Lucero Lymphocytes/100 WBC (Bld) 14.0 % Critically low 20.5-60.0 [facility] Comment on above: Performed By: #### [id number] #### [facility] [address] [place] [address] Dr. Parth Lucero MANUAL DIFF REQ NO Normal [facility] Comment on above: Performed By: #### [id number] #### [facility] [address] [place] [address] Dr. Parth Lucero MCH (RBC) [Entitic mass] 31.0 pg Normal 26.7-34.0 [facility] Comment on above: Performed By: #### 4 [id number] #### [facility] [address] [place] [address] Dr. Parth Lucero MCHC (RBC) [Mass/Vol] 33.6 g/dL Normal 29.9-35.2 [facility] Comment on above: Performed By: #### [id number] #### [facility] [address] [place] [address] Dr. Parth Lucero MCV (RBC) [Entitic vol] 92.3 fL Normal 81.0-99.0 [facility] Comment on above: Performed By: #### [id number] #### [facility] [address] [place] [address] Dr. Parth Lucero MONO # 1.2 103/ul Critically high 0.3-0.8 [facility] Comment on above: Performed By: #### [id number] #### [facility] [address] [place] [address] Dr. Parth Lucero Monocytes/100 WBC (Bld) 7.7 % Normal 1.7-12.0 [facility] Comment on above: Performed By: #### 4 [id number] #### [facility] [address] [place] [address] Dr. Parth Lucero NEUT # 11.7 103/ul Critically high 1.4-6.5 [facility] Comment on above: Performed By: #### 4 [id number] #### [facility] [address] [place] [address] Dr. Parth Lucero Neutrophils/100 WBC (Bld) 76.9 % Critically high 43.0-75.0 [facility] Comment on above: Performed By: #### [id number] #### [facility] [address] [place] [address] Dr. Parth Lucero Platelet mean volume (Bld) [Entitic vol] 10.0 fL Normal 9.5-13.5 [facility] Comment on above: Performed By: #### [id number] #### [facility] [address] [place] [address] Dr. Parth Lucero PLT 231 103/ul Normal 150-450 [facility] Comment on above: Performed By: #### 4 [id number] #### [facility] [address] [place] [address] Dr. Parth Lucero RBC 3.90 106/ul Critically low 4.20-5.40 [facility] Comment on above: Performed By: #### 4 [id number] #### [facility] [address] [place] [address] Dr. Parth Lucero WBC 15.2 103/ul Critically high 4.0-11.0 [facility] Comment on above: Performed By: #### 4 [id number] #### [facility] [address] [place] [address] Dr. Parth Lucero CBC AUTO DIFFon 01-07-2022 BASO # 0.0 103/ul Normal 0.0-0.1 [facility] Comment on above: Performed By: #### C BC #### [facility] [address] [place] [address] Dr. Parth Lucero Basophils/100 WBC (Bld) 0.4 % Normal 0.2-2.0 [facility] Comment on above: Performed By: #### C BC #### [facility] [address] [place] [address] Dr. Parth Lucero EO # 0.1 103/ul Normal 0.0-0.7 [facility] Comment on above: Performed By: #### C BC #### [facility] [address] [place] [address] Dr. Parth Lucero Eosinophils/100 WBC (Bld) 1.1 % Normal 0.9-7.0 [facility] Comment on above: Performed By: #### C BC #### [facility] [address] [place] [address] Dr. Parth Lucero Erythrocyte distribution width (RBC) [Ratio] 13.3 % Normal 11.0-15.0 [facility] Comment on above: Performed By: #### C BC #### [facility] [address] [place] [address] Dr. Parth Lucero Hematocrit (Bld) [Volume fraction] 39.2 % Normal 36.0-48.0 [facility] Comment on above: Performed By: #### C BC #### [facility] [address] [place] [address] Dr. Parth Lucero Hemoglobin (Bld) [Mass/Vol] 13.3 g/dL Normal 12.0-16.0 [facility] Comment on above: Performed By: #### C BC #### [facility] [address] [place] [address] Dr. Parth Lucero IG # 0.10 10e3/ul Critically high 0.00-0.03 [facility] Comment on above: Performed By: #### C BC #### [facility] [address] [place] [address] Dr. Parth Lucero IG % 1.0 % Critically high 0.0-0.5 [facility] Comment on above: Performed By: #### C BC #### [facility] [address] [place] [address] Dr. Parth Lucero LYMPH # 1.8 103/ul Normal 1.2-3.8 [facility] Comment on above: Performed By: #### C BC #### [facility] [address] [place] [address] Dr. Parth Lucero Lymphocytes/100 WBC (Bld) 18.0 % Critically low 20.5-60.0 [facility] Comment on above: Performed By: #### C BC #### [facility] [address] [place] [address] Dr. Parth Lucero MANUAL DIFF REQ NO Normal [facility] Comment on above: Performed By: #### C BC #### [facility] [address] [place] [address] Dr. Parth Lucero MCH (RBC) [Entitic mass] 31.1 pg Normal 26.7-34.0 [facility] Comment on above: Performed By: #### C BC #### [facility] [address] [place] [address] Dr. Parth Lucero MCHC (RBC) [Mass/Vol] 33.9 g/dL Normal 29.9-35.2 [facility] Comment on above: Performed By: #### C BC #### [facility] [address] [place] [address] Dr. Parth Lucero MCV (RBC) [Entitic vol] 91.8 fL Normal 81.0-99.0 [facility] Comment on above: Performed By: #### C BC #### [facility] [address] [place] [address] Dr. Parth Lucero MONO # 1.1 103/ul Critically high 0.3-0.8 [facility] Comment on above: Performed By: #### C BC #### [facility] [address] [place] [address] Dr. Parth Lucero Monocytes/100 WBC (Bld) 11.3 % Normal 1.7-12.0 [facility] Comment on above: Performed By: #### C BC #### [facility] [address] [place] [address] Dr. Parth Lucero NEUT # 6.9 103/ul Critically high 1.4-6.5 [facility] Comment on above: Performed By: #### C BC #### [facility] [address] [place] [address] Dr. Parth Lucero Neutrophils/100 WBC (Bld) 68.2 % Normal 43.0-75.0 [facility] Comment on above: Performed By: #### C BC #### [facility] [address] [place] [address] Dr. Parth Lucero Platelet mean volume (Bld) [Entitic vol] 10.6 fL Normal 9.5-13.5 [facility] Comment on above: Performed By: #### C BC #### [facility] [address] [place] [address] Dr. Parth Lucero PLT 258 103/ul Normal 150-450 [facility] Comment on above: Performed By: #### C BC #### [facility] [address] [place] [address] Dr. Parth Lucero RBC 4.27 106/ul Normal 4.20-5.40 [facility] Comment on above: Performed By: #### C BC #### [facility] [address] [place] [address] Dr. Parth Lucero WBC 10.1 103/ul Normal 4.0-11.0 [facility] Comment on above: Performed By: #### C BC #### [facility] [address] [place] [address] Dr. Parth Lucero [facility]-2 1-2022 SARS-CoV-2 (COVID-19) RNA RIGOBERTO+probe Ql (Unsp spec) Not detected Normal NOT DETECTED [facility] Comment on above: Result Comment: When diagnostic [...] for this test is supported by the [employer] and Human Service's declaration that [...] longer be used). Performed By: #### [id number] #### [facility] [address] [place] [address] Dr. Parth Lucero DRUG SCREEN RAPID (URINE)on 01-07-2022 AMP Negative Normal NEGATIVE [facility] Comment on above: Performed By: #### L IPID #### [facility] [address] [place] [address] Dr. Parth Lucero BAR Negative Normal NEGATIVE [facility] Comment on above: Performed By: #### L IPID #### [facility] [address] [place] [address] Dr. Parth Lucero BUP Negative Normal NEGATIVE [facility] Comment on above: Performed By: #### L IPID #### [facility] [address] [place] [address] Dr. Parth Lucero BZO Negative Normal NEGATIVE [facility] Comment on above: Performed By: #### L IPID #### [facility] [address] [place] [address] Dr. Parth Lucero AMINTA Negative Normal NEGATIVE [facility] Comment on above: Performed By: #### L IPID #### [facility] [address] [place] [address] Dr. Parth Lucero CUT-OFFS SEE BELOW Normal [facility] Comment on above: Result Comment: AMP (Amphetamine): 500ng/mL, BAR (Barbituates): 200 ng/mL, BZO (Benzodiazepines): 150 ng/mL, BUP (Buprenorphine): 10 ng/mL, AMINTA (Cocaine): 150 ng/mL, mAMP (Methamphetamine): 500 ng/mL, MTD (Methadone): 200 ng/mL, OPI (Opiates): 100 ng/mL, OXY (Oxycodone): 100 ng/mL, PCP (Phencyclidine): 25 ng/mL, PPX (Propoxyphene): 300 ng/mL, THC (Cannabinoids): 50 ng/mL, TCA (Trycyclic Antidepressants): 300 ng/mL Performed By: #### L IPID #### [facility] [address] [place] [address] Dr. Parth Lucero DRUG CUT HEADER DRUG CLASS TEST SYSTEM CUT-OFF CONCENTRATIONS ARE FOLLOWS: Normal [facility] Comment on above: Performed By: #### L IPID #### [facility] [address] [place] [address] Dr. Parth Lucero mAMP Negative Normal NEGATIVE [facility] Comment on above: Performed By: #### L IPID #### [facility] [address] [place] [address] Dr. Parth Lucero MTD Negative Normal NEGATIVE [facility] Comment on above: Performed By: #### L IPID #### [facility] [address] [place] [address] Dr. Parth Luecro OPI Negative Normal NEGATIVE [facility] Comment on above: Performed By: #### L IPID #### [facility] [address] [place] [address] Dr. Parth Lucero OXY Negative Normal NEGATIVE [facility] Comment on above: Performed By: #### L IPID #### [facility] [address] [place] [address] Dr. Parth Lucero PCP Negative Normal NEGATIVE [facility] Comment on above: Performed By: #### L IPID #### [facility] [address] [address] [address] Parth Lucero PPX Negative Normal NEGATIVE [facility] Comment on above: Performed By: #### L IPID #### [facility] [address] [address] [address] Parth Lucero TCA Negative Normal NEGATIVE [facility] Comment on above: Performed By: #### L IPID #### [facility] [address] [address] [address] Parth Lucero THC Negative Normal NEGATIVE [facility] Comment on above: Performed By: #### L IPID #### [facility] [address] [address] [address] Parth Lucero TYPE AND SCREENon 01-07-2022 TYPE AND SCREEN Negative Normal [facility] Comment on above: Performed By: #### T NS #### [facility] [address] [place] [address] Dr. Parth Lucero GROUP B STREP CULTUREon 11-19 S. agalactiae Ag Ql (Unsp spec) Culture Observations: NEGATIVE FOR GROUP B STREPTOCOCCUS. Normal [facility] Comment on above: Performed By: #### [id number] #### [facility] [address] [place] [address] Dr. Parth Lucero GTT 3 HR PREGon 2021 Glucose [Mass/Vol] 93 mg/dL Normal 74-106 [facility] Comment on above: Performed By: #### G TT3P #### [facility] [address] [place] [address] Dr. Parth Lucero Glucose [Mass/Vol] 173 mg/dL Normal [facility] Comment on above: Performed By: #### G TT3P #### [facility] [address] [place] [address] Dr. Parth Lucero Glucose [Mass/Vol] 149 mg/dL Normal [facility] Comment on above: Performed By: #### G TT3P #### [facility] [address] [place] [address] Dr. Parth Lucero Glucose [Mass/Vol] 128 mg/dL Normal [facility] Comment on above: Performed By: #### G TT3P #### [facility] [address] [place] [address] Dr. Parth Lucero GLUCOSE - 1HRon 10-09-2021 Glucose [Mass/Vol] 150 mg/dL Critically high 74-106 [facility] Comment on above: Performed By: #### G [id number] #### [facility] [address] [place] [address] Dr. Parth Lucero HEMOGRAM AND PLATELon 2021 Hematocrit (Bld) [Volume fraction] 37.6 % Normal 36.0-48.0 [facility] Comment on above: Performed By: #### H H #### [facility] [address] [place] [address] Dr. Parth Lucero Hemoglobin (Bld) [Mass/Vol] 12.3 g/dL Normal 12.0-16.0 [facility] Comment on above: Performed By: #### H H #### [facility] [address] [place] [address] Dr. Parth Lucero MCH (RBC) [Entitic mass] 31.2 pg Normal 26.7-34.0 [facility] Comment on above: Performed By: #### H H #### [facility] [address] [place] [address] Dr. Parth Lucero MCHC (RBC) [Mass/Vol] 32.7 g/dL Normal 29.9-35.2 [facility] Comment on above: Performed By: #### H H #### [facility] [address] [place] [address] Dr. Parth Lucero MCV (RBC) [Entitic vol] 95.4 fL Normal 81.0-99.0 [facility] Comment on above: Performed By: #### H H #### [facility] [address] [place] [address] Dr. Parth Lucero PLT 240 103/ul Normal 150-450 [facility] Comment on above: Performed By: #### H H #### [facility] [address] [place] [address] Dr. Parth Lucero RBC 3.94 106/ul Critically low 4.20-5.40 [facility] Comment on above: Performed By: #### H H #### [facility] [address] [address] [address] Parth Lucero WBC 9.7 103/ul Normal 4.0-11.0 [facility] Comment on above: Performed By: #### H H #### [facility] [address] [place] [address] Dr. Parth Lucero PAP ACOG PANEL 2: 22 to 30on 09-02-2021 . . Normal [facility] Comment on above: Performed By: #### [id number] #### [facility] [address] [place] [address] Dr. Parth Lucero Age Gdln ACOG Testing - [facility] Comment on above: Performed By: #### [id number] #### [facility] [address] [place] [address] Dr. Parth Lucero DIAGNOSIS: Comment [facility] Comment on above: Result Comment: NEGA TIVE FOR INTRAEPITHELIAL LESION OR MALIGNANCY. Performed By: #### [id number] #### [facility] [address] [place] [address] Dr. Parth Lucero Methodology: Comment [facility] Comment on above: Result Comment: This liquid based ThinPrep(R) pap test was screened with the use of an image guided system. Performed By: #### [id number] #### [facility] [address] [place] [address] Dr. Parth Lucero Note: Comment [facility] Comment on above: Result Comment: The Pap smear is a screening test designed to aid in the detection of premalignant and malignant conditions of the uterine cervix. It is not a diagnostic procedure and should not be used as the sole means of detecting cervical cancer. Both false-positive and false-negative reports do occur. . Performed By: #### [id number] #### [facility] [address] [place] [address] Dr. Parth Lucero Performed by: Comment Normal [facility] Comment on above: Result Comment: Vivian Paris, Cardiology Technologist (ASCP) Performed By: #### [id number] #### [facility] [address] [address] [address] Parth Lucero Reflex Criteria: Comment Normal [facility] Comment on above: Result Comment: The HPV DNA reflex criteria were not met with this specimen result therefore, no HPV testing was performed. . Performed By: #### [id number] #### [facility] [address] [address] [address] Parth Lucero Specimen adequacy: Comment Normal [facility] System Comment on above: Result Comment: Sati sfactory for evaluation. No endocervical component is identified. Performed By: #### [id number] #### [facility] [address] [place] [address] Dr. Parth Lucero US PREG ANATOMY SINGLEon [...] by ultrasound, 56% by expected EDC; FL/AC: 0.904835 FL/BPD: 0.114943 HC/AC: 1.993124 GESTATIONAL AGE: Age by EDC: 21 weeks 0 days ARMANI by EDC: 01/12/2022 Age by current US: 20 weeks 1 day ARMANI by current US: 01/11/2022 IMPRESSION: Normal anatomy scan *Reference: [employer] Practice Guideline for the performance of Obstetric Ultrasound Examinations, March 20, 2007. Electronically authenticated by: ALONSO SANDERS Date: 2021-09-01 16:20 Normal [facility] CHLAMYDIA/GONOCOCCUS RIGOBERTO (SW AB/URINE/PAPon 08-29-2021 Chlamydia trachomatis, RIGOBERTO Negative Normal Negative [facility] Comment on above: Performed By: #### L IPID #### [facility] [address] [address] [address] Parth Lucero Neisseria gonorrhoeae, RIGOBERTO Negative Normal Negative [facility] Comment on above: Performed By: #### L IPID #### [facility] [address] [address] [address] Parth Lucero AFP MATERNAL FOR SPINA BIFID Aon 08-18-2021 AFP MoM 1.13 Normal [facility] Comment on above: Performed By: #### [id number] #### [facility] [address] [address] [address] Parth Lucero AFP Value 52.2 ng/mL Normal [facility] Comment on above: Performed By: #### [id number] #### [facility] [address] [address] [address] Parth Lucero AFP, Serum for Spina Bifida Report Normal [facility] Comment on above: Performed By: #### [id number] #### [facility] [address] [address] [address] Parth Lucero Comment Comment Normal [facility] Comment on above: Result Comment: Ruth Viveros, Ph.D., [facility] Director . References: Available Upon Request. . Multiples Of Median Cutoffs For AFP Elevations Ricardo 2.5 Black 2.8 IDD 2.0 Twins 4.5 Abbreviation Definitions IDD - Insulin Dep Diabetes OSBR - Open Spina Bifida Risk . For further inquiries contact [employer] at [phone]. Performed By: #### [id number] #### [facility] [address] [place] [address] Dr. Parth Lucero Gest Age Collection Date 18.0 weeks Normal [facility] Comment on above: Performed By: #### [id number] #### [facility] [address] [address] [address] Parth Lucero Gestat, Age Based on LMP Normal [facility] Comment on above: Result Comment: Reca lculations are not recommended when gestational dating by LMP and ultrasound are within 10 days. Performed By: #### 4 [id number] #### [facility] [address] [place] [address] Dr. Parth Lucero Insulin Dep Diabetes No Normal [facility] Comment on above: Performed By: #### [id number] #### [facility] [address] [place] [address] Dr. Parth Lucero Interpretation Comment Normal [facility] Comment on above: Result Comment: [...] Customer Services to discuss available options. The [employer] recommends amniocentesis be offered to women age 35 and older. Performed By: #### [id number] #### [facility] [address] [place] [address] Dr. Parth Lucero [age] Normal [facility] Comment on above: Performed By: #### [id number] #### [facility] [address] [place] [address] Dr. Parth Lucero Multiple Gestation No Normal [facility] Comment on above: Performed By: #### [id number] #### [facility] [address] [place] [address] Dr. Parth Lucero OSBR Risk 1 IN [address] [facility] Comment on above: Performed By: #### [id number] #### [facility] [address] [place] [address] Dr. Parth Lucero PDF . Normal [facility] Comment on above: Result Comment: This test was developed and its performance characteristics determined by [employer]. It has not been cleared or approved by the Food and Drug Administration. Performed By: #### [id number] #### [facility] [address] [place] [address] Dr. Parth Lucero Race Normal [facility] Comment on above: Performed By: #### [id number] #### [facility] [address] [place] [address] Dr. Parth Lucero Test Results: Negative Normal [facility] Comment on above: Performed By: #### [id number] #### [facility] [address] [place] [address] Dr. Parth Lucero HEP B SURFACE ANTIGEN SCREEN on 06-25-2021 HBsAg Screen Negative Normal Negative [facility] Comment on above: Performed By: #### H BSANS #### [facility] [address] [place] [address] Dr. Parth Lucero HEPATITIS C VIRUS AB W/ REFL EX QUANTon 06-25-2021 HCV AB <0.1 Normal 0.0-0.9 [facility] Comment on above: Performed By: #### 4 [id number] #### [facility] [address] [place] [address] Dr. Parth Lucero Interpretation: Comment Normal [facility] Comment on above: Result Comment: Nega tive Not infected with HCV, unless recent infection is suspected or other evidence exists to indicate HCV infection. Performed By: #### 4 [id number] #### [facility] [address] [place] [address] Dr. Parth Lucero HIV 1 AND 2 WITH REFLEXon HIV Screen 4th Generation wRfx Non-Reactive Normal Non Reactive [facility] Comment on above: Performed By: #### L IPID #### [facility] [address] [place] [address] Dr. Parth Lucero RPR QUANTon 06-25-2021 Rapid Plasma Reagin, Quant Non-Reactive Normal NonRea<1:1 [facility] Comment on above: Performed By: #### L IPID #### [facility] [address] [place] [address] Dr. Parth Lucero RUBELLA AB IGGon 06-25-2021 Rubella Antibodies, IgG 13.00 index Normal Immune >0.99 [facility] Comment on above: Result Comment: Non- immune <0.90 Equivocal 0.90 - 0.99 Immune >0.99 Performed By: #### [id number] #### [facility] [address] [place] [address] Dr. Parth Lucero CBC AUTO DIFFon 06-23-2021 BASO # 0.0 103/ul Normal 0.0-0.1 [facility] Comment on above: Performed By: #### L IPID #### [facility] [address] [place] [address] Dr. Parth Lucero Basophils/100 WBC (Bld) 0.3 % Normal 0.2-2.0 [facility] Comment on above: Performed By: #### L IPID #### [facility] [address] [place] [address] Dr. Parth Lucero EO # 0.1 103/ul Normal 0.0-0.7 [facility] Comment on above: Performed By: #### L IPID #### [facility] [address] [place] [address] Dr. Parth Lucero Eosinophils/100 WBC (Bld) 1.1 % Normal 0.9-7.0 [facility] Comment on above: Performed By: #### L IPID #### [facility] [address] [place] [address] Dr. Parth Lucero Erythrocyte distribution width (RBC) [Ratio] 12.7 % Normal 11.0-15.0 [facility] Comment on above: Performed By: #### L IPID #### [facility] [address] [place] [address] Dr. Parth Lucero Hematocrit (Bld) [Volume fraction] 38.2 % Normal 36.0-48.0 [facility] Comment on above: Performed By: #### L IPID #### [facility] [address] [address] [address] Parth Lucero Hemoglobin (Bld) [Mass/Vol] 13.0 g/dL Normal 12.0-16.0 [facility] Comment on above: Performed By: #### L IPID #### [facility] [address] [address] [address] Parth Lucero IG # 0.04 10e3/ul Critically high 0.00-0.03 [facility] Comment on above: Performed By: #### L IPID #### [facility] [address] [address] [address] Parth Lucero IG % 0.4 % Normal 0.0-0.5 [facility] Comment on above: Performed By: #### L IPID #### [facility] [address] [address] [address] Parth Lucero LYMPH # 2.3 103/ul Normal 1.2-3.8 [facility] Comment on above: Performed By: #### L IPID #### [facility] [address] [address] [address] Parth Lucero Lymphocytes/100 WBC (Bld) 23.8 % Normal 20.5-60.0 [facility] Comment on above: Performed By: #### L IPID #### [facility] [address] [address] [address] Parth Lucero MANUAL DIFF REQ NO Normal [facility] Comment on above: Performed By: #### L IPID #### [facility] [address] [address] [address] Parth Lucero MCH (RBC) [Entitic mass] 31.6 pg Normal 26.7-34.0 [facility] Comment on above: Performed By: #### L IPID #### [facility] [address] [address] [address] Parth Lucero MCHC (RBC) [Mass/Vol] 34.0 g/dL Normal 29.9-35.2 [facility] Comment on above: Performed By: #### L IPID #### [facility] [address] [address] [address] Parth Lucero MCV (RBC) [Entitic vol] 92.9 fL Normal 81.0-99.0 [facility] Comment on above: Performed By: #### L IPID #### [facility] [address] [place] [address] Dr. Parth Lucero MONO # 0.8 103/ul Normal 0.3-0.8 [facility] Comment on above: Performed By: #### L IPID #### [facility] [address] [place] [address] Dr. Parth Lucero Monocytes/100 WBC (Bld) 7.6 % Normal 1.7-12.0 [facility] Comment on above: Performed By: #### L IPID #### [facility] [address] [place] [address] Dr. Parth Lucero NEUT # 6.6 103/ul Critically high 1.4-6.5 [facility] Comment on above: Performed By: #### L IPID #### [facility] [address] [place] [address] Dr. Parth Lucero Neutrophils/100 WBC (Bld) 66.8 % Normal 43.0-75.0 [facility] Comment on above: Performed By: #### L IPID #### [facility] [address] [place] [address] Dr. Parth Lucero Platelet mean volume (Bld) [Entitic vol] 9.4 fL Critically low 9.5-13.5 [facility] Comment on above: Performed By: #### L IPID #### [facility] [address] [place] [address] Dr. Parth Lucero PLT 320 103/ul Normal 150-450 [facility] Comment on above: Performed By: #### L IPID #### [facility] [address] [place] [address] Dr. Parth Lucero RBC 4.11 106/ul Critically low 4.20-5.40 [facility] Comment on above: Performed By: #### L IPID #### [facility] [address] [place] [address] Dr. Parth Lucero WBC 9.8 103/ul Normal 4.0-11.0 [facility] Comment on above: Performed By: #### L IPID #### [facility] [address] [place] [address] Dr. Parth Lucero CULTURE URINEon 06-23-2021 CULTURE URINE Culture Observations : MODERATE GROWTH OF MIXED GENITAL BERNARDINO. NO POTENTIAL PATHOGENS SEEN. Normal [facility] Comment on above: Performed By: #### U RCX #### [facility] [address] [place] [address] Dr. Parth Lucero GLYCOHEMOGLOBIN A1Con 2021 ADA RECOMMENDATION ADA THERAPEUTIC TARGET 6.0 - 7.0 ACTION SUGGESTED > 7.0 Normal [facility] Comment on above: Performed By: #### A 1C #### [facility] [address] [place] [address] Dr. Parth Lucero Glucose [Mass/Vol] 105 mg/dL Normal [facility] Comment on above: Performed By: #### A 1C #### [facility] [address] [place] [address] Dr. Parth Lucero HbA1c (Bld) [Mass fraction] 5.3 % Normal <=6.0 [facility] Comment on above: Performed By: #### A 1C #### [facility] [address] [place] [address] Dr. Parth Lucero TAYLA BOX TEST PT SEND OUTo n 06-23-2021 SENT TO REF LAB 06/23/2021 Normal [facility] Comment on above: Performed By: #### [id number] #### [facility] [address] [place] [address] Dr. Parth Lucero TYPE AND SCREENon 06-23-2021 TYPE AND SCREEN Negative Normal [facility] Comment on above: Performed By: #### 4 [id number] #### [facility] [address] [place] [address] Dr. Parth Lucero US PREG TVon 12-27-2021 US PREG TV EXAMINATION: US PREG TV [...] by: ALONSO SANDERS Date: 2021-06-15 09:44 Normal [facility] Auth for Release of Medical Recordson 06-05-2021 Auth for Release of Medical Records [id number]. [id number] Normal [facility] Vital Signs Date Time Vital Sign Value Performing Clinician Faci lity 08-18-2021 18:08-0500 Body weight 63.[address] RODNEY CAPUTO [facility] Comment on above: Performed By: #### 4 [id number] #### [facility] [address] [place] [address] Dr. Parth Lucero Encounters Encounter Date Encounter Type Care Provider Facility Start: 03-05-2024 End: 03-05-2024 ambulatory BRYAN ALCANTARA Not Available Start: 02-06-2024 End: 02-06-2024 ambulatory JORGE LUIS [...] 03-29-2022 End: 03-30-[address] RODNEY CAPUTO Facility:[facility] Start: 03-24-2022 End: 03-25-[address] RODNEY [...] Start: 09-01-2021 End: 09-02-[address] RODNEY CAPTUO Facility:[facility] Start: 08-27-2021 Encounter for gynecological examination (general) (routine) without abnormal findings DR RODNEY CAPUTO [facility] Start: 08-26-2021 End: 08-26-[address] RODNEY [...] CAPUTO Payers Date Payer Category Payer Unknown [id number] 2.16.84 [id number] 1990 Unknown [id number] 2.16.84 0.1.728921.3.579.2.593 1991 Unknown [id number] 2.16.84 0.1.952569.3.579.2.593 1991 Unknown [id number] 2.16.84 0.1.119399.3.579.2.593 1991 Unknown [id number] .16.84 0.1.339523.3.579.2.593 1991 Unknown [id number] 2.16.84 0.1.327583.3.579.2.593 1991 Unknown [id number] .16.84 0.1.489809.3.579.2.593 1991 Unknown [id number] .16.84 0.1.091878.3.579.2.593 1991 Unknown [id number] 2.16.84 0.1.886219.3.579.2.593 1991 Unknown [id number] .16.84 0.1.827183.3.579.2.593 1991 Unknown [id number] 2.16.84 0.1.247344.3.579.2.593 1991 Unknown [id number] 2.16.84 0.1.817340.3.579.2.593 1991 Unknown [id number] 2.16.84 0.1.885759.3.579.2.593 1991 Unknown [id number] 2.16.84 0.1.919642.3.579.2.593 1991 Unknown [id number] 2.16.84 0.1.041927.3.579.2.593 1991 Unknown [id number] 2.16.84 0.1.079023.3.579.2.1258 1991 Unknown [id number] 2.16.84 0.1.171273.3.579.2.1258 1991 Unknown [id number] 2.16.84 0.1.266401.3.579.2.1258 1991 Unknown [id number] 2.16.84 0.1.230829.3.579.2.1258 1991 Unknown [id number] 2.16.84 0.1.738689.3.579.2.1258 1991 Unknown [id number] 2.16.84 0.1.307268.3.579.2.1258 1991 Unknown [id number] 2.16.84 0.1.389273.3.579.2.1258 1991 Unknown [id number] 2.16.84 0.1.397246.3.579.2.1258 1991 Unknown [id number] 2.16.84 0.1.171166.3.579.2.9 1959 Self-pay 1958 Unknown [id number] Unknown [id number] 2.16.84 0.1.728096.3.579.2.593 Summary Purpose Family History No Family History Records FoundNo Family History Records FoundNo Family History Records Found Advance Directives No Advanced Directives Records FoundNo Advanced Directives Records FoundNo Advanced Directives Records Found Additional Source Comments INFORMATION SOURCE (unrecogn ized section and content) DATE CREATED AUTHOR 06/06/2021 [facility] DATE CREATED AUTHOR AUTHOR'S ORGANIZ ATION 05/12/2022 [facility] DATE CREATED AUTHOR AUTHOR'S ORGANIZ ATION 03/07/2024 [facility] FOR RECORDS PERTAINING TO PATIENTS WHO [...] BE BASED ON THE PRIMARY CLINICAL RECORDS. [facility]. provides no warranty or guarantee of the accuracy or completeness of information in this document.
--- NOTE | 2024-03-28 16:57 | US_ITS ---
[address] [address] Patient Name: JEANNETTE CHOI MRN: [id number] date: 1990 Sex: F Assigned Patient Location: US Current Patient Location: Accession/Order Number: [id number] Exam Date: 03/28/2024 17:05 Report Date: 03/29/2024 04:30 At the request of: BRYAN ALCANTARA Procedure: US OB anatomy EXAMINATION: US OB anatomy, US OB cervical length HISTORY: SCREENING, , FOR ANATOMIC SURVEY Z36.89 COMPARISON: Ultrasound OB transvaginal 01/06/2024 TECHNIQUE: Transabdominal sonographic examination was performed for obstetrical and evaluation. FINDINGS: Number: 1 Heart Rate: 154.29 bpm H.B. /min Amniotic Fluid Volume: Subjectively normal Placental Location: POSTERIOR with lower margin 1.3 cm from os. Cervix Length: 5.33 cm ; closed. ANATOMY: Normal Structures -cerebellum, choroid plexus, cisterna magna, lateral cerebral ventricles, orbits, midline falx, hard palate, four-chamber heart, RVOT, LVOT, stomach, kidneys, bladder, umbilical cord insertion into abdomen, three-vessel cord, cervical spine, thoracic spine, lumbar spine, sacral spine, right upper extremity, left upper extremity, right lower extremity, left lower extremity. SUBOPTIMALLY SEEN: Cardiac outflow tracts due to position. ABNORMALITIES: Echogenic focus within cardiac ventricle. BIOMETRY: BPD: 4.72 cm; 20 weeks 2 days; 42.10 % HC: 17.22 cm; 19 weeks 6 days; 16 % AC: 14.78 cm; 20 weeks 0 days; 31.40 % FL: 3.17 cm; 19 weeks 6 days; 22.40 % EFW:323.00 g; 21.60 % FL/AC: 21.43 FL/BPD: 67.15 HC/AC: 1.17 GESTATIONAL AGE: Age by EDC: 20 weeks 3 days Age by current US: 20 weeks 0 days ARMANI by current US: 2024-08-15 ARMANI by EDC: 2024-08-12 US/US OB anatomy IMPRESSION: 1. Single live intrauterine with growth detailed above. 2. Echogenic focus within cardiac ventricle; nonspecific but can be associated with the trisomy syndromes. No additional anatomic abnormality. 3. Suboptimal visualization of the cardiac outflow tracts due to position. 4. Low-lying posterior placenta.. Electronically authenticated by: SALMA DESHPANDE Date: 03/29/2024 04:30
--- NOTE | 2024-03-28 16:57 | US_ITS ---
[address] [address] Patient Name: JEANNETTE CHOI MRN: [id number] date: 1990 Sex: F Assigned Patient Location: US Current Patient Location: Accession/Order Number: [id number] Exam Date: 03/28/2024 17:05 Report Date: 03/29/2024 04:30 At the request of: BRYAN ALCANTARA Procedure: US OB cervical length EXAMINATION: US OB anatomy, US OB cervical length HISTORY: SCREENING, , FOR ANATOMIC SURVEY Z36.89 COMPARISON: Ultrasound OB transvaginal 01/06/2024 TECHNIQUE: Transabdominal sonographic examination was performed for obstetrical and evaluation. FINDINGS: Number: 1 Heart Rate: 154.29 bpm H.B. /min Amniotic Fluid Volume: Subjectively normal Placental Location: POSTERIOR with lower margin 1.3 cm from os. Cervix Length: 5.33 cm ; closed. ANATOMY: Normal Structures -cerebellum, choroid plexus, cisterna magna, lateral cerebral ventricles, orbits, midline falx, hard palate, four-chamber heart, RVOT, LVOT, stomach, kidneys, bladder, umbilical cord insertion into abdomen, three-vessel cord, cervical spine, thoracic spine, lumbar spine, sacral spine, right upper extremity, left upper extremity, right lower extremity, left lower extremity. SUBOPTIMALLY SEEN: Cardiac outflow tracts due to position. ABNORMALITIES: Echogenic focus within cardiac ventricle. BIOMETRY: BPD: 4.72 cm; 20 weeks 2 days; 42.10 % HC: 17.22 cm; 19 weeks 6 days; 16 % AC: 14.78 cm; 20 weeks 0 days; 31.40 % FL: 3.17 cm; 19 weeks 6 days; 22.40 % EFW:323.00 g; 21.60 % FL/AC: 21.43 FL/BPD: 67.15 HC/AC: 1.17 GESTATIONAL AGE: Age by EDC: 20 weeks 3 days Age by current US: 20 weeks 0 days ARMANI by current US: 2024-08-15 ARMANI by EDC: 2024-08-12 US/US OB cervical length IMPRESSION: 1. Single live intrauterine with growth detailed above. 2. Echogenic focus within cardiac ventricle; nonspecific but can be associated with the trisomy syndromes. No additional anatomic abnormality. 3. Suboptimal visualization of the cardiac outflow tracts due to position. 4. Low-lying posterior placenta.. Electronically authenticated by: SALMA DESHPANDE Date: 03/29/2024 04:30
[2024-03-31 02:19] LABS: AFP Value 88.7 ng/mL (.); Gest. Age on Collection Date 20.4 weeks (.); Gestat. Age Based On As provided (.); Insulin Dep Diabetes No (.); Maternal Age At EDD 32.8 yr (.); OSBR Risk 1 IN 3404 (.); Results Report (.)
== END 2024-03-28 16:40 | disposition home or self-care (01) ==
LOC: US 16:39
PROVIDERS: Visit Provider Physician Assistant
DX: O44.42 Low lying placenta NOS or without hemorrhage, second trimester (principal); Z3A.20 20 weeks gestation of pregnancy; O35.BXX0 Maternal care for other (suspected) fetal abnormality and damage, fetal cardiac anomalies, not applicable or unspecified
CPT/HCPCS: 36415; 76805; 76817; 82105

== ENCOUNTER 2024-04-06 16:08 | Outpatient (OUT) | payer OTHER, SELFPAY ==
--- NOTE | 2024-04-06 16:12 | US_ITS ---
[address] [address] Patient Name: JEANNETTE CHOI MRN: [id number] date: 1990 Sex: F Assigned Patient Location: US Current Patient Location: Accession/Order Number: [id number] Exam Date: 04/06/2024 16:15 Report Date: 04/09/2024 07:39 At the request of: JORGE LUIS BRADSHAW Procedure: US OB incomplete anatomy EXAM: US OB incomplete anatomy HISTORY: FOLLOW-UP ULTRASOUND OF ANATOMY Z36.2 COMPARISON: 03/28/2024. TECHNIQUE: Transabdominal FINDINGS: [place] intrauterine gestation position: Cephalic presentation, longitudinal lie Placenta: Normal observed anatomy: Four-chamber heart Suboptimal visualization: RVOT, LVOT, nose, lips Abnormalities: Echogenic cardiac focus US/US OB incomplete anatomy IMPRESSION: Anatomy detailed above Echogenic cardiac focus, nonspecific Electronically authenticated by: ALONSO SANDESR Date: 04/09/2024 07:39
--- OUTSIDE RECORDS SUMMARY | 2024-04-06 16:12 | XMS_ITS | CCD ---
Author Organization [facility] Care Team Providers Care Boat Worker Name Role Phone HARSHAL, DR STEVENS Attending Unavailable KARASIK, DR STEVENS Admitting Unavailable KARASIK, DR STEVENS Attending Unavailable KARASIK, DR STEVENS Admitting Unavailable KATRIN, DR KANG Consulting Unavailable KATRIN, DR KANG Attending Unavailable KATRIN, DR KANG Admitting Unavailable KATRIN, DR KANG Procedure Practitioner Unavailab le KATRIN, DR KANG Attending Unavailable KATRIN, DR KANG Admitting Unavailable KATRIN, DR KANG Attending Unavailable KATRIN, DR KANG Admitting Unavailable KARASIK, DR STEVENS Attending Unavailable KARASIK, DR STEVENS Admitting Unavailable KARASIK, DR STEVENS Consulting Unavailable KARASIK, DR STEVENS Attending Unavailable KARASIK, DR STEVENS Admitting Unavailable KARASIK, DR STEVENS Consulting Unavailable KARASIK, DR STEVENS Attending Unavailable KARASIK, DR STEVENS Admitting Unavailable KARASIK, DR STEVENS Consulting Unavailable KARASIK, DR STEVENS Attending Unavailable KARASIK, DR STEVENS Admkeysha Unavailable WEST, DR ALONSO Deleon Consulting Unavailable [...] Consulting Unavailable KARASIK, DR STEVENS Attending Unavailable HARSHAL, DR STEVENS Admitting Unavailable HARSHAL, DR STEVENS Consulting Unavailable HARSHAL, DR STEVENS Attending Unavailable HARSHAL, DR STEVENS Admitting Unavailable Дмитрий OLIVARES, Merlene Craig Unavailable [phone] Tamir Fuentes MD Primary Care Provider JORGE LUIS WILKES Attending Unavailable EMILY WHITMORE Attending Unavailable EMILY WHITMORE Referring Unavailable EMILY WHITMORE Attending Unavailable EMILY WHITMORE Attending Unavailable DOLKAYLEE, EMILY Grimaldo Attending Unavailable KATRIN, JORGE LUIS Attending Unavailable QUINTONBIBIANA AUGUSTE Attending Unavailable KATRIN, JORGE LUIS Attending Unavailable Allergies Allergy Classification Reported Allergen(s) Allergy Type Date of Onset Reaction(s) Facility (1 source) Penicillin Drug Allergy [facility] (4 sources) Penicillin G Drug Allergy 10-12-2023 Rash [facility] Work Phone: (4 sources) Penicillins Drug Allergy 06-28-2023 [facility] Medications Current Medications Medication Drug Class(es) Dates Sig (Normalized) Sig (Original) Vit-Fe Fumarate-FA ( Vitamins) 28-0.8 MG tablet (4 sources) Start: 01-09-2024 End: 01-08-2025 take 1 tablet by mouth once daily Vit-Fe Fumarate-FA ( Vitamins) 28-0.8 MG tablet Indications: First trimester Take 1 tablet by mouth Daily 30 tablet 11 01/09/2024 01/08/2025 Active Problems Active Problems Problem Classification Problem Date Documented Date Episodic/Chronic Menstrual disorders (4 sources) Irregular menstruation, unspecified; Translations: [IRREGULAR MENSTRUATION UNSPECIFIED] Onset: 06-23-2021 Chronic Other female genital disorders (4 sources) Unspecified dyspareunia; Translations: [UNSPECIFIED DYSPAREUNIA] Onset: 03-24-2022 Chronic Other and delivery including normal (20 sources) Encounter for care and examination of lactating mother; Translations: [Encounter for routine follow-up] Onset: 06-21-2021 Episodic Other screening for suspected conditions (not mental disorders or infectious disease) (20 sources) Encounter for screening for lipoid disorders; Translations: [Encounter for screening for Streptococcus B] Onset: 06-28-2021 Episodic Residual codes; unclassified (2 sources) Gestation period, 21 weeks; Translations: [21 weeks gestation of ] 04-03-2024 Episodic Unclassified (4 sources) OB Reminders Onset: 01-20-2024 01-20-2024 Past or Other Problems Problem Classification Problem [...] PERINEAL LAC DUR DELIV] Onset: 01-12-2022 Episodic Residual codes; unclassified (1 source) 39 weeks gestation of ; Translations: [39 WEEKS GESTATION OF ] Onset: 01-12-2022 Episodic NEGATED: Highlighted row has been ruled out!Unclassified (4 sources) No known active problems 12-07-2023 Results Test Name Value Interpretation Reference Range Facility Urinalysis macro (dipstick) panel (U)on 04-03-2024 Bilirubin, UA Negative Negative - 4(70) +++ mg/dL [facility] Blood, UA Negative Negative - 50 Grey/mcL [facility] Clarity, UA Clear [facility] Color, UA Yellow [facility] Glucose, UA Negative Negative - 1999(110) ++++ mg/dL [facility] Interpretation and review of laboratory results Normal [facility] Ketones, UA Negative Negative - 160(16) ++++ mg/dL [facility] Leukocytes, UA Negative Negative - 500+++ Juan Alberto/mcL [facility] Nitrite, UA Negative Negative - Positive [facility] pH, UA 6.5 5 - 9 [facility] Protein, UA Negative Negative - 1999(20) ++++ mg/dL [facility] Spec Grav, UA 1.02 1 - 1.03 [facility] Urobilinogen, UA 0.2 0.2 - 12 mg/dL [facility] AFP, SERUM, OPEN SPINA BIFID Aon 03-31-2024 AFP MOM 1.42 . [facility] AFP VALUE 88.7 ng/mL . [facility] COMMENT: Comment . [facility] Comment on above: Radha Viveros , Ph.D., [facility] Director References: Available Upon Request. Multiples Of Median Cutoffs For AFP Elevations Ricardo 2.5 Black 2.8 IDD 2.0 Twins 4.5 Abbreviation Definitions IDD - Insulin Dep Diabetes OSBR - Open Spina Bifida Risk For further inquiries contact [facility] at [phone]. This test was developed and its performance characteristics determined by [facility]. It has not been cleared or approved by the Food and Drug Administration. Performed at: [facility] [address], [place], [place] [id number] Applications Support Analyst: Priya Jung Formerly [facility], Phone: [phone] GEST. AGE ON COLLECTION DATE 20.4 . weeks [facility] GESTAT. AGE BASED ON As provided . [facility] Comment on above: Recalculations are n ot recommended when gestational dating by LMP and ultrasound are within 10 days. INSULIN DEP DIABETES No . [facility] INTERPRETATION Comment . [facility] Comment on above: Interpretation: Scre en Negative This result is screen negative for OSB. [...] Customer Services to discuss available options. The [place] [employer] recommends amniocentesis be offered to women age 35 and older. [age] [facility] MULTIPLE GESTATION No . [facility] OSBR RISK 1 IN 3404 . [facility] RACE . [facility] RESULTS Report . [facility] TEST RESULTS: Negative . [facility] WEIGHT 137 . lbs [facility] N N [id number] 17 N 1 Y 137 N N N N N White/ [facility] LIPID PROFILEon 03-29-2022 CHOL-HDL RATIO NORM SEE BELOW Normal [facility] Comment on above: Result Comment: 3.3 - 4.4 LOW RISK 4.4 - 7.1 AVERAGE RISK 7.1 - 11.0 MODERATE RISK >11.0 HIGH RISK Performed By: #### L IPID #### [facility] [address] [address] [address] Parth Lucero Cholesterol [Mass/Vol] 197 mg/dL Normal <=200 [facility] Comment on above: Performed By: #### L IPID #### [facility] [address] [address] [address] Parth Lucero Cholesterol in HDL [Mass/Vol] 66 mg/dL Critically high 40-60 [facility] Comment on above: Performed By: #### L IPID #### [facility] [address] [address] [address] Parth Lucero Cholesterol in LDL [Mass/Vol] 120.0 mg/dL Normal [facility] Comment on above: Performed By: #### L IPID #### [facility] [address] [address] [address] Parth Lucero Cholesterol.total/Ch olesterol in HDL [Mass ratio] 3.0 {ratio} Normal [facility] Comment on above: Performed By: #### L IPID #### [facility] [address] [address] [address] Parth Lucero HDL NORMAL > or = 60 mg/dl - LO W CARDIOVASCULAR RISK <40 mg/dl - HIGH CARDIOVASCULAR RISK Normal [facility] Comment on above: Performed By: #### L IPID #### [facility] [address] [address] [address] Parth Lucero LDL CALC NORMAL SEE BELOW Normal [facility] Comment on above: Result Comment: <100 mg/dl OPTIMAL 100 - 129 mg/dl NEAR OR ABOVE OPTIMAL 130 - 159 mg/dl BORDERLINE HIGH 160 - 189 mg/dl HIGH >190 mg/dl VERY HIGH Performed By: #### L IPID #### [facility] [address] [address] [address] Parth Lucero Triglyceride [Mass/Vol] 55 mg/dL Normal <=150 [facility] Comment on above: Performed By: #### L IPID #### [facility] [address] [address] [address] Parth Lucero VLDL CALC 11.0 mg/dL Normal [facility] Comment on above: Performed By: #### L IPID #### [facility] [address] [place] [address] Dr. Parth Lucero CBC AUTO DIFFon 01-08-2022 BASO # 0.0 103/ul Normal 0.0-0.1 [facility] Comment on above: Performed By: #### [id number] #### [facility] [address] [place] [address] Dr. Parth Lucero Basophils/100 WBC (Bld) 0.3 % Normal 0.2-2.0 [facility] Comment on above: Performed By: #### 4 [id number] #### [facility] [address] [place] [address] Dr. Parth Lucero EO # 0.1 103/ul Normal 0.0-0.7 [facility] Comment on above: Performed By: #### 4 [id number] #### [facility] [address] [place] [address] Dr. Parth Lucero Eosinophils/100 WBC (Bld) 0.4 % Critically low 0.9-7.0 [facility] Comment on above: Performed By: #### 4 [id number] #### [facility] [address] [place] [address] Dr. Parth Lucero Erythrocyte distribution width (RBC) [Ratio] 13.4 % Normal 11.0-15.0 [facility] Comment on above: Performed By: #### 4 [id number] #### [facility] [address] [place] [address] Dr. Parth Lucero Hematocrit (Bld) [Volume fraction] 36.0 % Normal 36.0-48.0 [facility] Comment on above: Performed By: #### 4 [id number] #### [facility] [address] [place] [address] Dr. Parth Lucero Hemoglobin (Bld) [Mass/Vol] 12.1 g/dL Normal 12.0-16.0 [facility] Comment on above: Performed By: #### 4 [id number] #### [facility] [address] [address] [address] Parth Lucero IG # 0.10 10e3/ul Critically high 0.00-0.03 [facility] Comment on above: Performed By: #### 4 [id number] #### [facility] [address] [address] [address] Parth Lucero IG % 0.7 % Critically high 0.0-0.5 [facility] Comment on above: Performed By: #### 4 [id number] #### [facility] [address] [address] [address] Parth Lucero LYMPH # 2.1 103/ul Normal 1.2-3.8 [facility] Comment on above: Performed By: #### 4 [id number] #### [facility] [address] [place] [address] Dr. Parth Lucero Lymphocytes/100 WBC (Bld) 14.0 % Critically low 20.5-60.0 [facility] Comment on above: Performed By: #### 4 [id number] #### [facility] [address] [place] [address] Dr. Parth Lucero MANUAL DIFF REQ NO Normal [facility] Comment on above: Performed By: #### 4 [id number] #### [facility] [address] [place] [address] Dr. Parth Lucero MCH (RBC) [Entitic mass] 31.0 pg Normal 26.7-34.0 [facility] Comment on above: Performed By: #### 4 [id number] #### [facility] [address] [place] [address] Dr. Parth Lucero MCHC (RBC) [Mass/Vol] 33.6 g/dL Normal 29.9-35.2 [facility] Comment on above: Performed By: #### 4 [id number] #### [facility] [address] [place] [address] Dr. Parth Lucero MCV (RBC) [Entitic vol] 92.3 fL Normal 81.0-99.0 [facility] Comment on above: Performed By: #### 4 [id number] #### [facility] [address] [address] [address] Parth Lucero MONO # 1.2 103/ul Critically high 0.3-0.8 [facility] Comment on above: Performed By: #### 4 [id number] #### [facility] [address] [address] [address] Parth Lucero Monocytes/100 WBC (Bld) 7.7 % Normal 1.7-12.0 [facility] Comment on above: Performed By: #### 4 [id number] #### [facility] [address] [place] [address] Dr. Parth Lucero NEUT # 11.7 103/ul Critically high 1.4-6.5 [facility] Comment on above: Performed By: #### 4 [id number] #### [facility] [address] [place] [address] Dr. Parth Lucero Neutrophils/100 WBC (Bld) 76.9 % Critically high 43.0-75.0 [facility] Comment on above: Performed By: #### 4 [id number] #### [facility] [address] [place] [address] Dr. Parth Lucero Platelet mean volume (Bld) [Entitic vol] 10.0 fL Normal 9.5-13.5 [facility] Comment on above: Performed By: #### 4 [id number] #### [facility] [address] [place] [address] Dr. Parth Lucero PLT 231 103/ul Normal 150-450 [facility] Comment on above: Performed By: #### 4 [id number] #### [facility] [address] [place] [address] Dr. Parth Lucero RBC 3.90 106/ul Critically low 4.20-5.40 [facility] Comment on above: Performed By: #### 4 [id number] #### [facility] [address] [place] [address] Dr. Parth Lucero WBC 15.2 103/ul Critically high 4.0-11.0 [facility] Comment on above: Performed By: #### 4 [id number] #### [facility] [address] [address] [address] Parth Lucero CBC AUTO DIFFon 01-07-2022 BASO # 0.0 103/ul Normal 0.0-0.1 [facility] Comment on above: Performed By: #### C BC #### [facility] [address] [address] [address] Parth Lucero Basophils/100 WBC (Bld) 0.4 % Normal 0.2-2.0 [facility] Comment on above: Performed By: #### C BC #### [facility] [address] [place] [address] Dr. Parth Lucero EO # 0.1 103/ul Normal 0.0-0.7 [facility] Comment on above: Performed By: #### C BC #### [facility] [address] [place] [address] Dr. Parth Lucero Eosinophils/100 WBC (Bld) 1.1 % Normal 0.9-7.0 [facility] Comment on above: Performed By: #### C BC #### [facility] [address] [place] [address] Dr. Parth Lucero Erythrocyte distribution width (RBC) [Ratio] 13.3 % Normal 11.0-15.0 [facility] Comment on above: Performed By: #### C BC #### [facility] [address] [place] [address] Dr. Parth Lucero Hematocrit (Bld) [Volume fraction] 39.2 % Normal 36.0-48.0 [facility] Comment on above: Performed By: #### C BC #### [facility] [address] [address] [address] Parth Lucero Hemoglobin (Bld) [Mass/Vol] 13.3 g/dL Normal 12.0-16.0 [facility] Comment on above: Performed By: #### C BC #### [facility] [address] [place] [address] Dr. Parth Lucero IG # 0.10 10e3/ul Critically high 0.00-0.03 [facility] Comment on above: Performed By: #### C BC #### [facility] [address] [address] [address] Parth Lucero IG % 1.0 % Critically high 0.0-0.5 [facility] Comment on above: Performed By: #### C BC #### [facility] [address] [place] [address] Dr. Parth Lucero LYMPH # 1.8 103/ul Normal 1.2-3.8 [facility] Comment on above: Performed By: #### C BC #### [facility] [address] [place] [address] Dr. Parth Lucero Lymphocytes/100 WBC (Bld) 18.0 % Critically low 20.5-60.0 [facility] Comment on above: Performed By: #### C BC #### [facility] [address] [place] [address] Dr. Parth Lucero MANUAL DIFF REQ NO Normal [facility] Comment on above: Performed By: #### C BC #### [facility] [address] [place] [address] Dr. Parth Lucero MCH (RBC) [Entitic mass] 31.1 pg Normal 26.7-34.0 [facility] Comment on above: Performed By: #### C BC #### [facility] [address] [place] [address] Dr. Parth Lucero MCHC (RBC) [Mass/Vol] 33.9 g/dL Normal 29.9-35.2 [facility] Comment on above: Performed By: #### C BC #### [facility] [address] [place] [address] Dr. Parth Lucero MCV (RBC) [Entitic vol] 91.8 fL Normal 81.0-99.0 [facility] Comment on above: Performed By: #### C BC #### [facility] [address] [place] [address] Dr. Parth Lucero MONO # 1.1 103/ul Critically high 0.3-0.8 [facility] Comment on above: Performed By: #### C BC #### [facility] [address] [place] [address] Dr. Parth Lucero Monocytes/100 WBC (Bld) 11.3 % Normal 1.7-12.0 [facility] Comment on above: Performed By: #### C BC #### [facility] [address] [place] [address] Dr. Parth Lucero NEUT # 6.9 103/ul Critically high 1.4-6.5 [facility] Comment on above: Performed By: #### C BC #### [facility] [address] [place] [address] Dr. Parth Lucero Neutrophils/100 WBC (Bld) 68.2 % Normal 43.0-75.0 [facility] Comment on above: Performed By: #### C BC #### [facility] [address] [place] [address] Dr. Parth Lucero Platelet mean volume (Bld) [Entitic vol] 10.6 fL Normal 9.5-13.5 [facility] Comment on above: Performed By: #### C BC #### [facility] [address] [place] [address] Dr. Parth Lucero PLT 258 103/ul Normal 150-450 [facility] Comment on above: Performed By: #### C BC #### [facility] [address] [place] [address] Dr. Parth Lucero RBC 4.27 106/ul Normal 4.20-5.40 [facility] Comment on above: Performed By: #### C BC #### [facility] [address] [place] [address] Dr. Parth Lucero WBC 10.1 103/ul Normal 4.0-11.0 [facility] Comment on above: Performed By: #### C BC #### [facility] [address] [place] [address] Dr. Parth Lucero Covid-19 PCR (CVDTB)on 12-19 SARS-CoV-2 (COVID-19) RNA RIGOBERTO+probe Ql (Unsp spec) Not detected Normal NOT DETECTED [facility] Comment on above: Result Comment: When diagnostic [...] for this test is supported by the [place] of Health and Human Service's declaration that [...] longer be used). Performed By: #### 4 [id number] #### [facility] [address] [place] [address] Dr. Parth Lucero DRUG SCREEN RAPID (URINE)on 01-07-2022 AMP Negative Normal NEGATIVE [facility] Comment on above: Performed By: #### L IPID #### [facility] [address] [place] [address] Dr. Parth Lucero BAR Negative Normal NEGATIVE [facility] Comment on above: Performed By: #### L IPID #### [facility] [address] [place] [address] Dr. Parth Lucero BUP Negative Normal NEGATIVE [facility] Comment on above: Performed By: #### L IPID #### [facility] [address] [place] [address] Dr. Parth Lucero BZO Negative Normal NEGATIVE [facility] Comment on above: Performed By: #### L IPID #### [facility] [address] [place] [address] Dr. Parth Lucero AMINTA Negative Normal NEGATIVE [facility] Comment on above: Performed By: #### L IPID #### [facility] [address] [place] [address] Dr. Parth Lucero CUT-OFFS SEE BELOW Normal [facility] Comment on above: Result Comment: AMP [...] ng/mL Performed By: #### L IPID #### [facility] [address] [place] [address] Dr. Parth Lucero DRUG CUT HEADER DRUG CLASS TEST SYSTEM CUT-OFF CONCENTRATIONS ARE FOLLOWS: Normal [facility] Comment on above: Performed By: #### L IPID #### [facility] [address] [place] [address] Dr. Parth Lucero mAMP Negative Normal NEGATIVE [facility] Comment on above: Performed By: #### L IPID #### [facility] [address] [place] [address] Dr. Parth Lucero MTD Negative Normal NEGATIVE [facility] Comment on above: Performed By: #### L IPID #### [facility] [address] [place] [address] Dr. Parth Lucero OPI Negative Normal NEGATIVE [facility] Comment on above: Performed By: #### L IPID #### [facility] [address] [place] [address] Dr. Parth Lucero OXY Negative Normal NEGATIVE [facility] Comment on above: Performed By: #### L IPID #### [facility] [address] [place] [address] Dr. Parth Lucero PCP Negative Normal NEGATIVE [facility] Comment on above: Performed By: #### L IPID #### [facility] [address] [place] [address] Dr. Parth Lucero PPX Negative Normal NEGATIVE [facility] Comment on above: Performed By: #### L IPID #### [facility] [address] [address] [address] Parth Lucero TCA Negative Normal NEGATIVE [facility] Comment on above: Performed By: #### L IPID #### [facility] [address] [address] [address] Parth Lucero THC Negative Normal NEGATIVE [facility] Comment on above: Performed By: #### L IPID #### [facility] [address] [address] [address] Parth Lucero TYPE AND SCREENon 01-07-2022 TYPE AND SCREEN Negative Normal [facility] Comment on above: Performed By: #### T NS #### [facility] [address] [place] [address] Dr. Parth Lucero GROUP B STREP CULTUREon 11-19 S. agalactiae Ag Ql (Unsp spec) Culture Observations: NEGATIVE FOR GROUP B STREPTOCOCCUS. Normal [facility] Comment on above: Performed By: #### 4 [id number] #### [facility] [address] [place] [address] Dr. Parth Lucero GTT 3 HR PREGon 2021 Glucose [Mass/Vol] 93 mg/dL Normal 74-106 [facility] Comment on above: Performed By: #### G TT3P #### [facility] [address] [place] [address] Dr. Parth Lucero Glucose [Mass/Vol] 173 mg/dL Normal [facility] Comment on above: Performed By: #### G TT3P #### [facility] [address] [place] [address] Dr. Parht Lucero Glucose [Mass/Vol] 149 mg/dL Normal [facility] Comment on above: Performed By: #### G TT3P #### [facility] [address] [place] [address] Dr. Parth Lucero Glucose [Mass/Vol] 128 mg/dL Normal [facility] Comment on above: Performed By: #### G TT3P #### [facility] [address] [place], [place] [id number] Dr. Parth Lucero GLUCOSE - 1HRon 10-09-2021 Glucose [Mass/Vol] 150 mg/dL Critically high 74-106 T [facility] Comment on above: Performed By: #### G LU1HR #### [facility] [address] [place] [address] Dr. Parth Lucero HEMOGRAM AND PLATELon 2021 Hematocrit (Bld) [Volume fraction] 37.6 % Normal 36.0-48.0 [facility] Comment on above: Performed By: #### H H #### [facility] [address] [place] [address] Dr. Parth Lucero Hemoglobin (Bld) [Mass/Vol] 12.3 g/dL Normal 12.0-16.0 [facility] Comment on above: Performed By: #### H H #### [facility] [address] [place] [address] Dr. Parth Lucero MCH (RBC) [Entitic mass] 31.2 pg Normal 26.7-34.0 [facility] Comment on above: Performed By: #### H H #### [facility] [address] [place] [address] Dr. Parth Lucero MCHC (RBC) [Mass/Vol] 32.7 g/dL Normal 29.9-35.2 [facility] [facility] Comment on above: Performed By: #### H H #### [facility] [address] [place] [address] Dr. Parth Lucero MCV (RBC) [Entitic vol] 95.4 fL Normal 81.0-99.0 [facility] Comment on above: Performed By: #### H H #### [facility] [address] [place] [address] Dr. Parth Lucero PLT 240 103/ul Normal 150-450 [facility] Comment on above: Performed By: #### H H #### [facility] [address] [place] [address] Dr. Parth Lucero RBC 3.94 106/ul Critically low 4.20-5.40 [facility] Comment on above: Performed By: #### H H #### [facility] [address] [place] [address] Dr. Parth Lucero WBC 9.7 103/ul Normal 4.0-11.0 [facility] Comment on above: Performed By: #### H H #### [facility] [address] [place] [address] Dr. Parth Lucero PAP ACOG PANEL 2: 21 to 29on 09-02-2021 . . Normal [facility] Comment on above: Performed By: #### 4 [id number] #### [facility] [address] [place] [address] Dr. Parth Lucero Age Gdln ACOG Testing - [facility] Comment on above: Performed By: #### 4 [id number] #### [facility] [address] [place] [address] Dr. Parth Lucero DIAGNOSIS: Comment [facility] Comment on above: Result Comment: NEGA TIVE FOR INTRAEPITHELIAL LESION OR MALIGNANCY. Performed By: #### 4 [id number] #### [facility] [address] [place] [address] Dr. Parth Lucero Methodology: Comment [facility] Comment on above: Result Comment: This liquid based ThinPrep(R) pap test was screened with the use of an image guided system. Performed By: #### 4 [id number] #### [facility] [address] [place] [address] Dr. Parth Lucero Note: Comment [facility] Comment on above: Result Comment: The Pap smear is a screening test designed to aid in the detection of premalignant and malignant conditions of the uterine cervix. It is not a diagnostic procedure and should not be used as the sole means of detecting cervical cancer. Both false-positive and false-negative reports do occur. . Performed By: #### 4 [id number] #### [facility] [address] [place] [address] Dr. Parth Lucero Performed by: Comment Normal [facility] Comment on above: Result Comment: Vivian Paris, Clinical Nursing Manager (ASCP) Performed By: #### 4 [id number] #### [facility] [address] [address] [address] Parth Luecro Reflex Criteria: Comment Normal [facility] Comment on above: Result Comment: The HPV DNA reflex criteria were not met with this specimen result therefore, no HPV testing was performed. . Performed By: #### 4 [id number] #### [facility] [address] [address] [address] Parth Lucero Specimen adequacy: Comment Normal [facility] Comment on above: Result Comment: Sati sfactory for evaluation. No endocervical component is identified. Performed By: #### 4 [id number] #### [facility] [address] [address] [address] Parth Lucero US PREG ANATOMY SINGLEon [...] by ultrasound, 56% by expected EDC; FL/AC: 0.055279 FL/BPD: 0.833821 HC/AC: 1.591375 GESTATIONAL AGE: Age by EDC: 21 weeks 0 days ARMANI by EDC: 01/12/2022 Age by current US: 20 weeks 1 day ARMANI by current US: 01/11/2022 IMPRESSION: Normal anatomy scan *Reference: AIUM Practice Guideline for the performance of Obstetric Ultrasound Examinations, March 20, 2007. Electronically authenticated by: ALONSO SANDERS Date: 2021-09-01 16:20 Normal [facility] CHLAMYDIA/GONOCOCCUS RIGOBERTO (SW AB/URINE/PAPon 08-29-2021 Chlamydia trachomatis, RIGOBERTO Negative Normal Negative [facility] Comment on above: Performed By: #### L IPID #### [facility] [address] [address] [address] Parth Lucero Neisseria gonorrhoeae, RIGOBERTO Negative Normal Negative [facility] Comment on above: Performed By: #### L IPID #### [facility] [address] [address] [address] Parth Lucero AFP MATERNAL FOR SPINA BIFID Aon 08-18-2021 AFP MoM 1.13 Normal [facility] Comment on above: Performed By: #### 4 [id number] #### [facility] [address] [address] [address] Parth Lucero AFP Value 52.2 ng/mL Normal [facility] Comment on above: Performed By: #### 4 [id number] #### [facility] [address] [address] [address] Parth Lucero AFP, Serum for Spina Bifida Report Normal [facility] Comment on above: Performed By: #### 4 [id number] #### [facility] [address] [address] [address] Parth Lucero Comment Comment Normal [facility] Comment on above: Result Comment: Ruth Viveros, Ph.D., [facility] Director . References: Available Upon Request. . Multiples Of Median Cutoffs For AFP Elevations Ricardo 2.5 Black 2.8 IDD 2.0 Twins 4.5 Abbreviation Definitions IDD - Insulin Dep Diabetes OSBR - Open Spina Bifida Risk . For further inquiries contact [facility] at [phone]. Performed By: #### 4 [id number] #### [facility] [address] [address] [address] Parth Lucero Gest Age Collection Date 18.0 weeks Normal [facility] Comment on above: Performed By: #### 4 [id number] #### [facility] [address] [place] [address] Dr. Parth Lucero Gestat, Age Based on LMP Normal [facility] Comment on above: Result Comment: Reca lculations are not recommended when gestational dating by LMP and ultrasound are within 10 days. Performed By: #### 4 [id number] #### [facility] [address] [place] [address] Dr. Parth Lucero Insulin Dep Diabetes No Normal [facility] Comment on above: Performed By: #### 4 [id number] #### [facility] [address] [place] [address] Dr. Parth Lucero Interpretation Comment Normal [facility] Comment on above: Result Comment: Inte rpretation: [...] Customer Services to discuss available options. The [employer] [employer] recommends amniocentesis be offered to women age 35 and older. Performed By: #### 4 [id number] #### [facility] [address] [place] [address] Dr. Parth Lucero [age] Normal [facility] Comment on above: Performed By: #### 4 [id number] #### [facility] [address] [place] [address] Dr. Parth Lucero Multiple Gestation No Normal [facility] Comment on above: Performed By: #### 4 [id number] #### [facility] [address] [place] [address] Dr. Parth Lucero OSBR Risk 1 [place] 8106 Normal [facility] Comment on above: Performed By: #### 4 [id number] #### [facility] [address] [place] [address] Dr. Parth Lucero PDF . Normal [facility] Comment on above: Result Comment: This test was developed and its performance characteristics determined by [employer]. It has not been cleared or approved by the Food and Drug Administration. Performed By: #### 4 [id number] #### [facility] [address] [place] [address] Dr. Parth Lucero Race Normal [facility] Comment on above: Performed By: #### 4 [id number] #### [facility] [address] [place] [address] Dr. Parth Lucero Test Results: Negative Normal [facility] Comment on above: Performed By: #### 4 [id number] #### [facility] [address] [place] [address] Dr. Parth Lucero HEP B SURFACE ANTIGEN SCREEN on 06-25-2021 HBsAg Screen Negative Normal Negative [facility] Comment on above: Performed By: #### H BSANS #### [facility] [address] [place] [address] Dr. Parth Lucero HEPATITIS C VIRUS AB W/ REFL EX QUANTon 06-25-2021 HCV AB <0.1 Normal 0.0-0.9 [facility] Comment on above: Performed By: #### 4 [id number] #### [facility] [address] [place] [address] Dr. Parth Lucero Interpretation: Comment Normal [facility] Comment on above: Result Comment: Nega tive Not infected with HCV, unless recent infection is suspected or other evidence exists to indicate HCV infection. Performed By: #### 4 [id number] #### [facility] [address] [place] [address] Dr. Parth Lucero HIV 1 AND 2 WITH REFLEXon HIV Screen 4th Generation wRfx Non-Reactive Normal Non Reactive [facility] Comment on above: Performed By: #### L IPID #### [facility] [address] [place] [address] Dr. Parth Lucero RPR QUANTon 06-25-2021 Rapid Plasma Reagin, Quant Non-Reactive Normal NonRea<1:1 [facility] Comment on above: Performed By: #### L IPID #### [facility] [address] [place] [address] Dr. Parth Lucero RUBELLA AB IGGon 06-25-2021 Rubella Antibodies, IgG 13.00 index Normal Immune >0.99 [facility] Comment on above: Result Comment: Non- immune <0.90 Equivocal 0.90 - 0.99 Immune >0.99 Performed By: #### 4 [id number] #### [facility] [address] [place] [address] Dr. Parth Lucero CBC AUTO DIFFon 06-23-2021 BASO # 0.0 103/ul Normal 0.0-0.1 [facility] Comment on above: Performed By: #### L IPID #### [facility] [address] [place] [address] Dr. Parth Lucero Basophils/100 WBC (Bld) 0.3 % Normal 0.2-2.0 [facility] Comment on above: Performed By: #### L IPID #### [facility] [address] [place] [address] Dr. Parth Lucero EO # 0.1 103/ul Normal 0.0-0.7 [facility] Comment on above: Performed By: #### L IPID #### [facility] [address] [place] [address] Dr. Parth Lucero Eosinophils/100 WBC (Bld) 1.1 % Normal 0.9-7.0 [facility] Comment on above: Performed By: #### L IPID #### [facility] [address] [place] [address] Dr. Parth Lucero Erythrocyte distribution width (RBC) [Ratio] 12.7 % Normal 11.0-15.0 [facility] Comment on above: Performed By: #### L IPID #### [facility] [address] [place] [address] Dr. Parth Lucero Hematocrit (Bld) [Volume fraction] 38.2 % Normal 36.0-48.0 [facility] Comment on above: Performed By: #### L IPID #### [facility] [address] [address] [address] Parth Lucero Hemoglobin (Bld) [Mass/Vol] 13.0 g/dL Normal 12.0-16.0 [facility] Comment on above: Performed By: #### L IPID #### [facility] [address] [place] [address] Dr. Parth Lucero IG # 0.04 10e3/ul Critically high 0.00-0.03 [facility] Comment on above: Performed By: #### L IPID #### [facility] [address] [place] [address] Dr. Parth Lucero IG % 0.4 % Normal 0.0-0.5 [facility] Comment on above: Performed By: #### L IPID #### [facility] [address] [place] [address] Dr. Parth Lucero LYMPH # 2.3 103/ul Normal 1.2-3.8 [facility] Comment on above: Performed By: #### L IPID #### [facility] [address] [place] [address] Dr. Parth Lucero Lymphocytes/100 WBC (Bld) 23.8 % Normal 20.5-60.0 [facility] Comment on above: Performed By: #### L IPID #### [facility] [address] [place] [address] Dr. Parth Lucero MANUAL DIFF REQ NO Normal [facility] Comment on above: Performed By: #### L IPID #### [facility] [address] [place] [address] Dr. Parth Lucero MCH (RBC) [Entitic mass] 31.6 pg Normal 26.7-34.0 [facility] Comment on above: Performed By: #### L IPID #### [facility] [address] [place] [address] Dr. Parth Lucero MCHC (RBC) [Mass/Vol] 34.0 g/dL Normal 29.9-35.2 [facility] Comment on above: Performed By: #### L IPID #### [facility] [address] [place] [address] Dr. Parth Lucero MCV (RBC) [Entitic vol] 92.9 fL Normal 81.0-99.0 [facility] Comment on above: Performed By: #### L IPID #### [facility] [address] [place] [address] Dr. Parth Lucero MONO # 0.8 103/ul Normal 0.3-0.8 [facility] Comment on above: Performed By: #### L IPID #### [facility] [address] [place] [address] Dr. Parth Lucero Monocytes/100 WBC (Bld) 7.6 % Normal 1.7-12.0 [facility] Comment on above: Performed By: #### L IPID #### [facility] [address] [place] [address] Dr. Parth Lucero NEUT # 6.6 103/ul Critically high 1.4-6.5 [facility] Comment on above: Performed By: #### L IPID #### [facility] [address] [place] [address] Dr. Parth Lucero Neutrophils/100 WBC (Bld) 66.8 % Normal 43.0-75.0 [facility] Comment on above: Performed By: #### L IPID #### [facility] [address] [place] [address] Dr. Parth Lucero Platelet mean volume (Bld) [Entitic vol] 9.4 fL Critically low 9.5-13.5 [facility] Comment on above: Performed By: #### L IPID #### [facility] [address] [place] [address] Dr. Parth Lucero PLT 320 103/ul Normal 150-450 [facility] Comment on above: Performed By: #### L IPID #### [facility] [address] [place] [address] Dr. Parth Lucero RBC 4.11 106/ul Critically low 4.20-5.40 [facility] Comment on above: Performed By: #### L IPID #### [facility] [address] [place] [address] Dr. Parth Lucero WBC 9.8 103/ul Normal 4.0-11.0 [facility] Comment on above: Performed By: #### L IPID #### [facility] [address] [place] [address] Dr. Parth Lucero CULTURE URINEon 06-23-2021 CULTURE URINE Culture Observations : MODERATE GROWTH OF MIXED GENITAL BERNARDINO. NO POTENTIAL PATHOGENS SEEN. Normal [facility] Comment on above: Performed By: #### U RCX #### [facility] [address] [place] [address] Dr. Parth Lucero GLYCOHEMOGLOBIN A1Con 2021 ADA RECOMMENDATION ADA THERAPEUTIC TARGET 6.0 - 7.0 ACTION SUGGESTED > 7.0 Normal [facility] Comment on above: Performed By: #### A 1C #### [facility] [address] [place] [address] Dr. Parth Lucero Glucose [Mass/Vol] 105 mg/dL Normal [facility] Comment on above: Performed By: #### A 1C #### [facility] [address] [place] [address] Dr. Parth Lucero HbA1c (Bld) [Mass fraction] 5.3 % Normal <=6.0 [facility] Comment on above: Performed By: #### A 1C #### [facility] [address] [place] [address] Dr. Parth Lucero TAYLA BOX TEST PT SEND OUTo n 06-23-2021 SENT TO REF LAB 06/23/2021 Normal [facility] Comment on above: Performed By: #### 4 [id number] #### [facility] [address] [place] [address] Dr. Parth Lucero TYPE AND SCREENon 06-23-2021 TYPE AND SCREEN Negative Normal [facility] Comment on above: Performed By: #### 4 [id number] #### [facility] [address] [place] [address] Dr. Parth Lucero US PREG TVon 06-15-2021 [...] by: ALONSO SANDERS Date: 2021-06-15 09:44 Normal [facility] Auth for Release of Medical Records 06-05-2021 Auth for Release of Medical Records [id number]:[id number] Normal [facility] Vital Signs Date Time Vital Sign Value Performing Clinician Facility 04-03-2024 14:57-0400 Body mass index (BMI) [Ratio] 25.4 kg/m2 [employer] Work Phone: [facility] 04-03-2024 14:57-0400 Body weight 67.13 kg [employer] Work Phone: [facility] 04-03-2024 14:57-0400 Diastolic blood pressure 64 mm[Hg] [employer] Work Phone: [facility] 04-03-2024 14:57-0400 Systolic blood pressure 100 mm[Hg] [employer] Work Phone: [facility] 08-18-2021 18:08-0500 Body weight 63.[address] RODNEY CAPUTO [facility] Comment on above: Performed By: #### 4 [id number] #### [facility] [address] [place] [address] Dr. Parth Lucero Encounters Encounter Date Encounter Type Care Provider Facility Start: 04-03-2024 End: 04-03-2024 flow sheet [employer] Work Phone: [facility] Comment on above: 21 weeks gestation o f ; Second trimester ; Encounter for follow-up ultrasound of anatomy; Diabetes mellitus screening Start: 04-03-2024 End: 04-03-2024 ambulatory JORGE LUIS KATRIN Not Available Start: 04-03-2024 End: 04-03-2024 Bamboo flowsheet Jorge Luis Katrin DO Work Phone: [facility] Start: 04-03-2024 End: 04-03-2024 Bamboo flowsheet Jorge Luis Katrin DO Work Phone: [facility] Start: 03-28-2024 End: 03-31-2024 Clinisync Result Encounter Bibiana MONROY Work Phone: [facility] Unsolicited Start: 03-28-2024 End: 03-31-2024 Clinisync Result Encounter Bibiana MONROY Work Phone: [facility]solic[facility] Start: 03-05-2024 End: 03-05-2024 ambulatory BIBIANA ALCANTARA Not Available Start: 02-06-2024 End: 02-06-2024 ambulatory JORGE LUIS KATRIN Not Available Start: 01-06-2024 End: 01-09-2024 ambulatory JORGE LUIS KATRIN Not Available Start: 12-07-2023 End: 12-07-2023 ambulatory EMILY D DOLCE Not Available Start: 11-16-2023 End: 11-16-2023 ambulatory EMILY D DOLCE Not Available Start: 10-26-2023 End: 10-26-2023 ambulatory EMILY D DOLCE Not Available Start: 10-12-2023 End: 10-12-2023 ambulatory EMILY D DOLCE Not Available Start: 06-28-2023 End: 06-28-2023 ambulatory JORGE LUIS KATRIN Not Available Start: 03-29-2022 End: 03-30-[address] RODNEY CAPUTO Facility:[facility] Start: 03-24-2022 End: 03-25-[address] RODNEY CAPUTO Facility:[facility] Start: 01-20-2022 End: 01-20-[address] JORGE LUIS WILKES Facility:[facility] Start: 01-13-2022 End: 01-20-[address] JORGE LUIS WILKES Facility:[facility] Start: 01-11-2022 End: 01-11-[address] RODNEY CAPUTO Facility:[facility] Start: 01-11-2022 Evaluation and manag ement of inpatient DR RODNEY CAPUTO Facility:[facility] Start: 01-07-2022 End: 01-09-2022 Evaluation and management of inpatient DR JORGE LUIS WILKES Facility:[facility] Start: 12-15-2021 End: 12-15-[address] RODNEY CAPUTO Facility:[facility] Start: 2021 End: 10-17-[address] RODNEY CAPUTO Facility:[facility] Start: 10-09-2021 End: 10-10-[address] RODNEY CAPUTO Facility:[facility] Start: 09-01-2021 End: 09-02-[address] RODNEY CAPUTO Facility:[facility] Start: 08-27-2021 Encounter for gynecological examination (general) (routine) without abnormal findings DR RODNEY CAPUTO [facility] Start: 08-26-2021 End: 08-26-[address] RODNEY CAPUTO Facility:[facility] Start: 08-26-2021 End: 08-26-2021 Encounter for gynecological examination (general) (routine) without abnormal findings DR RODNEY CAPUTO Facility:[facility] Start: 08-11-2021 End: 08-12-[address] RODNEY CAPUTO Facility:[facility] Start: 06-23-2021 End: 06-24-[address] RODNEY CAPUTO Facility:[facility] Start: 06-15-2021 End: 06-16-[address] RODNEY CAPUTO Facility: Procedures Date Procedure Procedure Detail Performing Clinician Start: 04-03-2024 Urnls dip stick/tabl et rgnt non-auto w/o micrscp Jorge Luis Wilkes DO Work Phone: Start: 03-28-2024 AFP, SERUM, OPEN SPI NA BIFIDA Bibiana MONROY Work Phone: Start: 01-07-2022 Delivery of Products of Conception, External Approach DR RODNEY CAPUTO Start: 01-07-2022 Repair Perineum Musc le, Open Approach DR RODNEY CAPUTO Plan of Treatment Date Care Activity Detail Author Start: 05-07-2024 End: 05-07-2024 Patient encounter procedure 05/07/2024 4:00 PM EST Routine [facility] [address] [facility] [facility] [place] [id number] Bibiana Alcantara PA [address] [place] [place], [place] [id number] [facility] Start: 04-04-2024 End: 04-04-2024 Patient encounter procedure 04/04/2024 3:10 PM EDT Routine [facility] [address] [place] [id number] Jorge Luis Wilkes, DO [address] [place], [place] [id number] [facility] Start: 04-03-2024 End: 04-03-2024 Patient encounter procedure 04/03/2024 2:20 PM EDT Routine [facility] [address] [place] [id number] Jorge Luis Wilkes, DO [address] [place] [address] Arrived [facility] Comment on above: Arrived Start: 04-03-2024 End: 04-03-2025 CBC panel - Blood by Automated count CBC Lab Routine Diabetes mellitus screening Expected: 04/03/2024 (Approximate), Expires: 04/03/2025 [facility] Comment on above: Expected: 04/03/2024 (Approximate), Expires: 04/03/2025 Start: 04-03-2024 End: 04-03-2025 Measurement of glucose 1 hour after glucose challenge for glucose tolerance test Glucose tolerance, 1 hour Lab Routine Diabetes mellitus screening Expected: 04/03/2024 (Approximate), Expires: 04/03/2025 [facility] Comment on above: Expected: 04/03/2024 (Approximate), Expires: 04/03/2025 Start: 04-03-2024 End: 04-03-2025 US for US OB INCOMPLETE ANATOMY Imaging Routine Encounter for follow-up ultrasound of anatomy Expected: 04/03/2024 (Approximate), Expires: 04/03/2025 [facility] Work Phone: Comment on above: Expected: 04/03/2024 (Approximate), Expires: 04/03/2025 Payers Date Payer Category Payer Private Health Insurance [employer] [id number] 2017 Unknown [employer] [id number] 2017-Present [address] [place] [address] [id number] 1991 Unknown [id number] 2.16.840.1.448867.3.579.2. 593 1991 Unknown [id number] 2.16.840.1.012646.3.579.2. 593 1991 Unknown [id number] 2.16.840.1.576919.3.579.2. 593 1991 Unknown [id number] 2.16.840.1.966741.3.579.2. 593 1991 Unknown [id number] 2.16.840.1.545541.3.579.2. 593 1991 Unknown [id number] 2.16.840.1.306025.3.579.2. 593 1991 Unknown [id number] 2.16.840.1.730931.3.579.2. 593 1991 Unknown [id number] 2.16840.1.550066.3.579.2. 593 1991 Unknown [id number] 2.16.840.1.031221.3.579.2. 593 1991 Unknown [id number] 2.16.840.1.347428.3.579.2. 593 1991 Unknown [id number] 2.840.1.362862.3.579.2. 59 1991 Unknown [id number] 2.840.1.237363.3.579.2. 593 1991 Unknown [id number] 2.840.1.186480.3.579.2. 59 1991 Unknown [id number] 2.840.1.896544.3.579.2. 59 1991 Unknown [id number] 2.840.1.524360.3.579.2. 59 1991 Unknown [id number] 2.840.1.983112.3.579.2. 1258 1991 Unknown [id number] 2.840.1.008200.3.579.2. 1258 1991 Unknown [id number] 2.840.1.889069.3.579.2. 1258 1991 Unknown [id number] 2.840.1.176989.3.579.2. 1258 1991 Unknown [id number] 2.840.1.500144.3.579.2. 125 1991 Unknown [id number] 2.16840.1.478617.3.579.2. 1258 1991 Unknown [id number] 2.16840.1.002191.3.579.2. 1259 1991 Unknown [id number] 2.16840.1.154898.3.579.2. 1259 1991 Unknown [id number] 2.16.840.1.602321.3.579.2. 1259 1991 Unknown [id number] 2.16.840.1.617059.3.579.2. 1259 1959 Self-pay 1959 Unknown [id number] Unknown [id number] 2.16.840.1.276421.3.579.2. 593 Social History Date Type Detail Facility Start: 10-12-2023 Tobacco smoking stat [facility] Never smoked tobacco [facility] Start: 10-12-2023 Tobacco use and exposure Smoke less tobacco non-user [facility] Start: 02-06-2024 End: 04-03-2024 Alcoholic beverage intake [facility] ([facility] Start: 12-07-2023 End: 02-06-2024 [facility]coholic beverage intake [facility] Start: 12-07-2023 Tobacco use panel [facility] Start: 11-20-2023 [facility] Start: 1990 Sex assigned at Not on file [facility] Goals Date Patient Goal Desired Activity /State Personal health goal History of Present illness Narrative 04-03-2024 Ivana Uriarte LPN - 04/03/2024 2:20 PM EDT Note Date & Type Note Facility 04-03-2024 History of Presen t illness Narrative Reason for Appointment: Patient ID: Cindy Rocha is a 33 y.o. female who presents for Routine Visit Patient presents today for Return OB appointment. MEDICATIONS Current Outpatient Medications Medication Instructions Vit-Fe Fumarate-FA ( Vitamins) 28-0.8 MG tablet 1 tablet, Oral, Daily ALLERGIES Allergies Allergen Reactions Penicillin G Rash Penicillins Rash PROBLEMS Active Ambulatory Problems Diagnosis Date Noted No Active Ambulatory Problems Resolved Ambulatory Problems Diagnosis Date Noted No Resolved Ambulatory Problems No Additional Past Medical History HISTORY PAST MEDICAL HISTORY SOCIAL HISTORY History reviewed. No pertinent past medical history. Social History Tobacco Use Smoking status: Never Smokeless tobacco: Never Vaping Use Vaping status: Never Used Substance Use Topics Alcohol use: Not Currently Alcohol/week: 4.0 standard drinks of alcohol Drug use: Never FAMILY HISTORY Family History Problem Relation Name Age of Onset Arthritis Mother Melita [place] Diabetes Mother Melita [place] Rheum arthritis Mother Melita [place] Hypertension Father Bryant [place] SURGICAL HISTORY Past Surgical History: Procedure Laterality Date TONSILLECTOMY WISDOM TOOTH EXTRACTION wisdom teeth REVIEW OF SYSTEMS Review of Systems: Review of Systems Constitutional: Negative. HENT: Negative. Eyes: Negative. Respiratory: Negative. Cardiovascular: Negative. Gastrointestinal: Negative. Genitourinary: Negative. Musculoskeletal: Negative. Skin: Negative. Neurological: Negative. All other systems reviewed and are negative. Hematological: Negative. Endocrine: Negative. Allergic/Immunologic: Negative. OBJECTIVE Objective: Physical Exam Constitutional: Appearance: Normal appearance. She is well-developed. Cardiovascular: Rate and Rhythm: Normal rate and regular rhythm. Pulmonary: Effort: Pulmonary effort is normal. Breath sounds: Normal breath sounds. Abdominal: General: Bowel sounds are normal. There is no distension. Palpations: Abdomen is soft. Tenderness: There is no abdominal tenderness. There is no guarding or rebound. Musculoskeletal: General: No swelling. Normal range of motion. Right lower leg: No edema. Left lower leg: No edema. Neurological: Mental Status: She is alert and oriented to person, place, and time. Skin: General: Skin is warm and dry. Psychiatric: Mood and Affect: Mood normal. Behavior: Behavior normal. Vitals and nursing note reviewed. Exam conducted with a hay stacker operator present. Vitals: Estimated body mass index is 25.4 kg/m as calculated from the following: Height as of 12/07/23: 5' 4 . Weight as of this encounter: 148 lb. BP: 100/64 Patient's last menstrual period was 11/06/2023. ASSESSMENT & PLAN ICD-10-CM 1. 21 weeks gestation of Z3A.21 POCT urinalysis dipstick manually resulted 2. Second trimester Z34.92 POCT urinalysis dipstick manually resulted 3. Encounter for follow-up ultrasound of anatomy Z36.2 US OB INCOMPLETE ANATOMY 4. Diabetes mellitus screening Z13.1 CBC Glucose tolerance, 1 hour Patient presents today for a routine obstetrics appointment. Patient is currently 21w2d with a Estimated Date of Delivery: 08/12/24. Pt given glucola order and repeat ultrasound for echogenic foci- and suboptimally seen. Pt to return in 4 weeks for scheduled OB appt. Documented by Ivana Uriarte LPN on behalf of: Jorge Luis Wilkes DO documented in this encounter [facility] Evaluation note Note Date & Type Note Facility Evaluation note Diagnosis 21 weeks gestation of Second trimester state, incidental Encounter for follow-up ultrasound of anatomy Diabetes mellitus screening Screening for diabetes mellitus documented in this encounter [facility] Summary Purpose Family History No Family History Records FoundNo Family History Records FoundNo Family History Records Found Advance Directives No Advanced Directives Records FoundNo Advanced Directives Records FoundNo Advanced Directives Records Found Additional Source Comments INFORMATION SOURCE (unrecogn ized section and content) DATE CREATED AUTHOR [facility]/06/2021 [facility] DATE CREATED AUTHOR AUTHOR'S ORGANIZ ATION 05/12/2022 [facility] DATE CREATED AUTHOR AUTHOR'S ORGANIZ ATION 04/05/2024 [facility] Care Teams (unrecognized sec tion and content) 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 Specialty Start Date End Date Tamir Fuentes MD [address] [place] [address] PCP - General Family Medicine 10/12/23 Merlene Choe MD [address] [place] [phone] Referring Physician Internal Medicine 10/12/23 Boat Worker 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 Specialty Start Date End Date Tamir Fuentes MD [address] [place] [address] PCP - General Family Medicine 10/12/23 Merlene Choe MD [address] [place] [phone] Referring Physician Internal Medicine 10/12/23 Reason for Visit (unrecogniz ed section and content) Reason Comments Routine Visit FOR RECORDS PERTAINING TO PATIENTS WHO ARE [...] BE BASED ON THE PRIMARY CLINICAL RECORDS. [facility] provides no warranty or guarantee of the accuracy or completeness of information in this document.
== END 2024-04-06 16:09 | disposition home or self-care (01) ==
LOC: US 16:08
PROVIDERS: Visit Provider Obstetrics & Gynecology
DX: Z36.2 Encounter for other antenatal screening follow-up (principal)
CPT/HCPCS: 76815

== ENCOUNTER 2024-04-28 08:28 | Outpatient (OUT) | payer OTHER, SELFPAY ==
--- OUTSIDE RECORDS SUMMARY | 2024-04-28 08:31 | XMS_ITS | CCD ---
Author Organization [facility] Care Team Providers Care Barrel Line Operator Name Role Phone HARSHAL, DR STEVENS Attending [...] Attending Unavailable KARASIK, DR STEVENS Admitting Unavailable Дмитрий OLIVARES, Merlene Craig Unavailable Tamir Fuentes MD Primary Care Provider JORGE LUIS WILKES Attending Unavailable EMILY WHITMORE Attending Unavailable DOLKAYLEE, EMILY Grimaldo Referring Unavailable DOLCE, EMILY Grimaldo Attending Unavailable DOLKAYLEE, EMILY Grimaldo Attending Unavailable DOLCE, EMILY Grimaldo Attending Unavailable KATRIN, JORGE LUIS Attending Unavailable QUINTON, BIBIANA Attending Unavailable KATRIN, JORGE LUIS Attending Unavailable Unavailable Primary Care Provider Unavailabl e KATRIN, JORGE LUIS R Referring Unavailable MOUSSA, JEET HARKINSIM Attending Unavailable KATRIN, JORGE LUIS R Referring Unavailable Allergies Allergy Classification Reported Allergen(s) Allergy Type Date of Onset Reaction(s) Facility (1 source) Penicillin Drug Allergy [facility] Repository (4 sources) Penicillin G Drug Allergy [facility] Work Phone: (5 sources) Penicillins; Translations: [PENICILLINS] Drug Allergy [facility] (2 sources) Penicillins Propensity to adverse reactions to drug 4 [facility] Medications Current Medications Medication Drug Class(es) Dates Sig (Normalized) Sig (Original) [id number] fumarate-FA 28-800 mg-mcg tablet (2 sources) take 1 tablet by mouth in the morning [id number]-eudsmcn fumarate-FA 28-800 mg-mcg tablet Take 1 tablet by mouth in the morning. Active Vit-Fe Fumarate-FA ( Vitamins) 28-0.8 MG tablet (4 sources) Start: 01-09-2024 End: 01-08-2025 take 1 tablet by mouth once daily Vit-Fe Fumarate-FA ( Vitamins) 28-0.8 MG tablet Indications: First trimester Take 1 tablet by mouth Daily 30 tablet 11 01/09/2024 01/08/2025 Active Problems Active Problems Problem Classification Problem Date Documented Date Episodic/Chronic Administrative/social admission (2 sources) Patient encounter status; Translations: [Encounter for examination and observation for unspecified reason] Onset: 04-16-2024 04-16-2024 Episodic Hemorrhage during ; abruptio placenta; placenta previa (3 sources) Low lying placenta; Translations: [Low lying placenta NOS or without hemorrhage, unspecified trimester] Onset: 04-16-2024 04-16-2024 Episodic Menstrual disorders (4 sources) Irregular menstruation, unspecified; Translations: [IRREGULAR MENSTRUATION UNSPECIFIED] Onset: 06-23-2021 Chronic Other complications of ; puerperium affecting management of mother (4 sources) heart echogenicity on obstetric ultrasound scan; Translations: [ cardiac echogenic focus, antepartum] Onset: 04-11-2024 04-11-2024 Episodic Other female genital disorders (4 sources) Unspecified [...] [21 weeks gestation of ] 04-03-2024 Episodic Residual codes; unclassified (1 source) FH: Congenital heart disease; Translations: [Family history of other congenital malformations, deformations and chromosomal abnormalities] 04-16-2024 Episodic Residual codes; unclassified (1 source) Gestation period, 23 weeks; Translations: [23 weeks gestation of ] 04-16-2024 Episodic Residual codes; unclassified (1 source) 23 weeks gestation of ; Translations: [23 weeks gestation of ] Onset: 04-16-2024 Episodic Unclassified (4 sources) OB Reminders Onset: 01-20-2024 01-20-2024 Unclassified (1 source) Maternal care for other (suspected) abnormality and damage, cardiac anomalies, not applicable or unspecified; Translations: [Maternal care for other (suspected) abnormality and damage, cardiac anomalies, not applicable or unspecified] Onset: 04-16-2024 Unclassified (1 source) EIF Onset: 04-16-2024 Past or Other Problems Problem Classification Problem [...] UA Negative Negative - 4(70) +++ mg/dL [facility] Blood, UA Negative Negative - 50 Grey/mcL [facility] Clarity, UA Clear [facility] Color, UA Yellow [facility] Glucose, UA Negative Negative - 1999(110) ++++ mg/dL [facility] Interpretation and review of laboratory results Normal [facility] Ketones, UA Negative Negative - 160(16) ++++ mg/dL [facility] Leukocytes, UA Negative Negative - 500+++ Juan Alberto/mcL [facility] Nitrite, UA Negative Negative - Positive [facility] pH, UA 6.5 5 - 9 [facility] Protein, UA Negative Negative - 2000(20) ++++ mg/dL [facility] Spec Grav, UA 1.02 1 - 1.03 [facility] Urobilinogen, UA 0.2 0.2 - 12 mg/dL [facility] AFP, SERUM, OPEN SPINA BIFID Aon 03-31-2024 AFP MOM 1.42 . [facility] AFP VALUE 88.7 ng/mL . [facility] COMMENT: Comment . [facility] Comment on above: Radha Viveros , Ph.D., [facility] Director References: Available Upon Request. Multiples Of Median Cutoffs For AFP Elevations Ricardo 2.5 Black 2.8 IDD 2.0 Twins 4.5 Abbreviation Definitions IDD - Insulin Dep Diabetes OSBR - Open Spina Bifida Risk For further inquiries contact [facility] at [phone]. This test was developed and its performance characteristics determined by [facility]. It has not been cleared or approved by the Food and Drug Administration. Performed at: [facility] [address] [place], [place] [id number] Software Integration Developer: Priya Jung [facility], Phone: [phone] GEST. AGE ON COLLECTION DATE 20.4 . weeks [facility] GESTAT. AGE BASED ON As provided . [facility] Comment on above: Recalculations are n ot recommended when gestational dating by LMP and ultrasound are within 10 days. INSULIN DEP DIABETES No . [facility] INTERPRETATION Comment . [facility] Comment on above: Interpretation: Scre en Negative [...] Services to discuss available options. The [employer] recommends amniocentesis be offered to women age 35 and older. [age] [facility] MULTIPLE GESTATION No . [facility] OSBR RISK 1 IN 3404 . [facility] RACE . [facility] RESULTS Report . [facility] TEST RESULTS: Negative . [facility] WEIGHT 137 . lbs [facility] N N [id number] 1 17 N 1 Y 137 N N N N N White/ [facility] CBC without diffon Hematocrit (Bld) [Volume fraction] 40.3 % [facility] Hemoglobin (Bld) [Mass/Vol] 13.3 g/dL [facility] Platelets (Bld) [#/Vol] 329 10*3/uL [facility] Rbc Mcv (Fl) By Automated Count 93.3 [facility] Chlamydia/GC by PCR Mariaa Sw abon 01-27-2024 Chlamydia Dna(Pcr) Not detected [facility] Gonorrhoeae Dna(Pcr) Not detected [facility] HIV 1&2 AB/AG Screen (P24 AG )on 01-27-2024 HIV 1&2 AB/AG Non-Reactive [facility] Hepatitis B surface antigeno n 01-27-2024 Hepatitis B Surface Antigen Negative [facility] Hepatitis C(HCV) Ab w/ Refle x to PCRon 01-27-2024 HCV Ab Ql (S) non reacitve [facility] No Panel Informationon 01-26 [facility] Rubella IGG immune statuson 01-27-2024 Rubella immune IgG 9.62 [facility] Syphilis Total(Unknown Syphi lis Status)on 01-27-2024 Syphilis Non-Reactive [facility] Type and screenon 01-27-2024 Abo/Rh(D) Positive [facility] LIPID PROFILEon 03-29-2022 CHOL-HDL RATIO NORM SEE BELOW Normal [facility] Comment on above: Result Comment: 3.3 - 4.4 LOW RISK 4.4 - 7.1 AVERAGE RISK 7.1 - 11.0 MODERATE RISK >11.0 HIGH RISK Performed By: #### L IPID #### [facility] [address] [place] [address] Dr. Parth Lucero Cholesterol [Mass/Vol] 197 mg/dL Normal <=200 [facility] Comment on above: Performed By: #### L IPID #### [facility] [address] [address] [address] Parth Lucero Cholesterol in HDL [Mass/Vol] 66 mg/dL Critically high 40-60 [facility] Comment on above: Performed By: #### L IPID #### [facility] [address] [address] [address] Parth Lucero Cholesterol in LDL [Mass/Vol] 120.0 mg/dL Normal [facility] Comment on above: Performed By: #### L IPID #### [facility] [address] [address] [address] Parth Lucero Cholesterol.total/Ch olesterol in HDL [Mass ratio] 3.0 {ratio} Normal [facility] Comment on above: Performed By: #### L IPID #### [facility] [address] [address] [address] Parth Lucero HDL NORMAL > or = 60 mg/dl - LO W CARDIOVASCULAR RISK <40 mg/dl - HIGH CARDIOVASCULAR RISK Normal [facility] Comment on above: Performed By: #### L IPID #### [facility] [address] [address] [address] Parth Lucero LDL CALC NORMAL SEE BELOW Normal [facility] Comment on above: Result Comment: <100 mg/dl OPTIMAL 100 - 129 mg/dl NEAR OR ABOVE OPTIMAL 130 - 159 mg/dl BORDERLINE HIGH 160 - 189 mg/dl HIGH >190 mg/dl VERY HIGH Performed By: #### L IPID #### [facility] [address] [place] [address] Dr. Parth Lucero Triglyceride [Mass/Vol] 55 mg/dL Normal <=150 [facility] Comment on above: Performed By: #### L IPID #### [facility] [address] [place] [address] Dr. Parth Lucero VLDL CALC 11.0 mg/dL Normal [facility] Comment on above: Performed By: #### L IPID #### [facility] [address] [place] [address] Dr. Parth Lucero CBC AUTO DIFFon 01-08-2022 BASO # 0.0 103/ul Normal 0.0-0.1 [facility] Comment on above: Performed By: #### [id number] #### [facility] [address] [place] [address] Dr. Parth Lucero Basophils/100 WBC (Bld) 0.3 % Normal 0.2-2.0 [facility] Comment on above: Performed By: #### [id number] #### [facility] [address] [place] [address] Dr. Parth Lucero EO # 0.1 103/ul Normal 0.0-0.7 [facility] Comment on above: Performed By: #### [id number] #### [facility] [address] [place] [address] Dr. Parth Lucero Eosinophils/100 WBC (Bld) 0.4 % Critically low 0.9-7.0 [facility] Comment on above: Performed By: #### [id number] #### [facility] [address] [place] [address] Dr. Parth Lucero Erythrocyte distribution width (RBC) [Ratio] 13.4 % Normal 11.0-15.0 [facility] Comment on above: Performed By: #### [id number] #### [facility] [address] [place] [address] Dr. Parth Lucero Hematocrit (Bld) [Volume fraction] 36.0 % Normal 36.0-48.0 [facility] Comment on above: Performed By: #### [id number] #### [facility] [address] [place] [address] Dr. Parth Lucero Hemoglobin (Bld) [Mass/Vol] 12.1 g/dL Normal 12.0-16.0 [facility] Comment on above: Performed By: #### 4 [id number] #### [facility] [address] [place] [address] Dr. Parth Lucero IG # 0.10 10e3/ul Critically high 0.00-0.03 [facility] Comment on above: Performed By: #### [id number] #### [facility] [address] [place] [address] Dr. Parth Lucero IG % 0.7 % Critically high 0.0-0.[address] [facility] Comment on above: Performed By: #### [id number] #### [facility] [address] [place] [address] Dr. Parth Lucero LYMPH # 2.1 103/ul Normal 1.2-3.8 [facility] Comment on above: Performed By: #### [id number] #### [facility] [address] [place] [address] Dr. Parth Lucero Lymphocytes/100 WBC (Bld) 14.0 % Critically low 20.5-60.0 [facility] Comment on above: Performed By: #### [id number] #### [facility] [address] [place] [address] Dr. Parth Lucero MANUAL DIFF REQ NO Normal [facility] Comment on above: Performed By: #### [id number] #### [facility] [address] [place] [address] Dr. Parth Lucero MCH (RBC) [Entitic mass] 31.0 pg Normal 26.7-34.0 [facility] Comment on above: Performed By: #### [id number] #### [facility] [address] [place] [address] Dr. Parth Lucero MCHC (RBC) [Mass/Vol] 33.6 g/dL Normal 29.9-35.2 [facility] Comment on above: Performed By: #### [id number] #### [facility] [address] [place] [address] Dr. Parth Lucero MCV (RBC) [Entitic vol] 92.3 fL Normal 81.0-99.0 [facility] Comment on above: Performed By: #### [id number] #### [facility] [address] [place] [address] Dr. Parth Lucero MONO # 1.2 103/ul Critically high 0.3-0.8 [facility] Comment on above: Performed By: #### 4 [id number] #### [facility] [address] [place] [address] Dr. Parth Lucero Monocytes/100 WBC (Bld) 7.7 % Normal 1.7-12.0 [facility] Comment on above: Performed By: #### 4 [id number] #### [facility] [address] [place] [address] Dr. Parth Lucero NEUT # 11.7 103/ul Critically high 1.4-6.5 [facility] Comment on above: Performed By: #### 4 [id number] #### [facility] [address] [place] [address] Dr. Parth Lucero Neutrophils/100 WBC (Bld) 76.9 % Critically high 43.0-75.0 [facility] Comment on above: Performed By: #### 4 [id number] #### [facility] [address] [address] [address] Parth Lucero Platelet mean volume (Bld) [Entitic vol] 10.0 fL Normal 9.5-13.5 [facility] Comment on above: Performed By: #### 4 [id number] #### [facility] [address] [address] [address] Parth Lucero PLT 231 103/ul Normal 150-450 [facility] Comment on above: Performed By: #### 4 [id number] #### [facility] [address] [address] [address] Parth Lucero RBC 3.90 106/ul Critically low 4.20-5.40 [facility] Comment on above: Performed By: #### [id number] #### [facility] [address] [place] [address] Dr. Parth Lucero WBC 15.2 103/ul Critically high 4.0-11.0 [facility] Comment on above: Performed By: #### 4 [id number] #### [facility] [address] [place] [address] Dr. Parth Lucero CBC AUTO DIFFon 01-07-2022 BASO # 0.0 103/ul Normal 0.0-0.1 [facility] Comment on above: Performed By: #### C BC #### [facility] [address] [place] [address] Dr. Parth Lucero Basophils/100 WBC (Bld) 0.4 % Normal 0.2-2.0 [facility] Comment on above: Performed By: #### C BC #### [facility] [address] [place] [address] Dr. Parth Lucero EO # 0.1 103/ul Normal 0.0-0.7 [facility] Comment on above: Performed By: #### C BC #### [facility] [address] [place] [address] Dr. Parth Lucero Eosinophils/100 WBC (Bld) 1.1 % Normal 0.9-7.0 [facility] Comment on above: Performed By: #### C BC #### [facility] [address] [place] [address] Dr. Parth Lucero Erythrocyte distribution width (RBC) [Ratio] 13.3 % Normal 11.0-15.0 [facility] Comment on above: Performed By: #### C BC #### [facility] [address] [address] [address] Parth Lucero Hematocrit (Bld) [Volume fraction] 39.2 % Normal 36.0-48.0 [facility] Comment on above: Performed By: #### C BC #### [facility] [address] [place] [address] Dr. Parth Lucero Hemoglobin (Bld) [Mass/Vol] 13.3 g/dL Normal 12.0-16.0 [facility] Comment on above: Performed By: #### C BC #### [facility] [address] [place] [address] Dr. Parth Lucero IG # 0.10 10e3/ul Critically high 0.00-0.03 [facility] Comment on above: Performed By: #### C BC #### [facility] [address] [place] [address] Dr. Parth Lucero IG % 1.0 % Critically high 0.0-0.5 [facility] Comment on above: Performed By: #### C BC #### [facility] [address] [place] [address] Dr. Parth Lucero LYMPH # 1.8 103/ul Normal 1.2-3.8 [facility] Comment on above: Performed By: #### C BC #### [facility] [address] [place] [address] Dr. Parth Lucero Lymphocytes/100 WBC (Bld) 18.0 % Critically low 20.5-60.0 [facility] Comment on above: Performed By: #### C BC #### [facility] [address] [place] [address] Dr. Parth Lucero MANUAL DIFF REQ NO Normal [facility] Comment on above: Performed By: #### C BC #### [facility] [address] [address] [address] Parth Lucero MCH (RBC) [Entitic mass] 31.1 pg Normal 26.7-34.0 [facility] Comment on above: Performed By: #### C BC #### [facility] [address] [place] [address] Dr. Parth Lucero MCHC (RBC) [Mass/Vol] 33.9 g/dL Normal 29.9-35.2 [facility] Comment on above: Performed By: #### C BC #### [facility] [address] [place] [address] Dr. Parth Lucero MCV (RBC) [Entitic vol] 91.8 fL Normal 81.0-99.0 [facility] Comment on above: Performed By: #### C BC #### [facility] [address] [place] [address] Dr. Parth Lucero MONO # 1.1 103/ul Critically high 0.3-0.8 [facility] Comment on above: Performed By: #### C BC #### [facility] [address] [place] [address] Dr. Parth Lucero Monocytes/100 WBC (Bld) 11.3 % Normal 1.7-12.0 [facility] Comment on above: Performed By: #### C BC #### [facility] [address] [place] [address] Dr. Parth Lucero NEUT # 6.9 103/ul Critically high 1.4-6.[address] [facility] Comment on above: Performed By: #### C BC #### [facility] [address] [place] [address] Dr. Parth Lucero Neutrophils/100 WBC (Bld) 68.2 % Normal 43.0-75.0 [facility] Comment on above: Performed By: #### C BC #### [facility] [address] [place] [address] Dr. Parth Lucero Platelet mean volume (Bld) [Entitic vol] 10.6 fL Normal 9.5-13.5 [facility] Comment on above: Performed By: #### C BC #### [facility] [address] [address] [address] Parth Lucero PLT 258 103/ul Normal 150-450 [facility] Comment on above: Performed By: #### C BC #### [facility] [address] [address] [address] Parth Lucero RBC 4.27 106/ul Normal 4.20-5.40 [facility] Comment on above: Performed By: #### C BC #### [facility] [address] [address] [address] Parth Lucero WBC 10.1 103/ul Normal 4.0-11.0 [facility] Comment on above: Performed By: #### C BC #### [facility] [address] [place] [address] Dr. Parth Lucero Covid-19 PCR ([facility])on 12-19 SARS-CoV-2 (COVID-19) RNA RIGOBERTO+probe Ql (Unsp spec) Not detected Normal NOT DETECTED [facility] Comment on above: Result Comment: When [...] for this test is supported by the [place] of Health and Human Service's declaration that [...] longer be used). Performed By: #### [id number] #### [facility] [address] [place] [address] Dr. Parth Lucero DRUG SCREEN RAPID (URINE)on 01-07-2022 AMP Negative Normal NEGATIVE [facility] Comment on above: Performed By: #### L IPID #### [facility] [address] [place] [address] Dr. Parth Lucero BAR Negative Normal NEGATIVE [facility] Comment on above: Performed By: #### L IPID #### [facility] [address] [place] [address] Dr. Parth Lucero BUP Negative Normal NEGATIVE [facility] Comment on above: Performed By: #### L IPID #### [facility] [address] [place] [address] Dr. Parth Lucero BZO Negative Normal NEGATIVE [facility] Comment on above: Performed By: #### L IPID #### [facility] [address] [place] [address] Dr. Parth Lucero AMINTA Negative Normal NEGATIVE [facility] Comment on above: Performed By: #### L IPID #### [facility] [address] [place] [address] Dr. Parth Lucero CUT-OFFS SEE BELOW Normal [facility] Comment on above: Result Comment: AMP [...] ng/mL Performed By: #### L IPID #### [facility] [address] [place] [address] Dr. Parth Lucero DRUG CUT HEADER DRUG CLASS TEST SYSTEM CUT-OFF CONCENTRATIONS ARE FOLLOWS: Normal [facility] Comment on above: Performed By: #### L IPID #### [facility] [address] [place] [address] Dr. Parth Lucero mAMP Negative Normal NEGATIVE [facility] Comment on above: Performed By: #### L IPID #### [facility] [address] [place] [address] Dr. Parth Lucero MTD Negative Normal NEGATIVE [facility] Comment on above: Performed By: #### L IPID #### [facility] [address] [place] [address] Dr. Parth Lucero OPI Negative Normal NEGATIVE [facility] Comment on above: Performed By: #### L IPID #### [facility] [address] [place] [address] Dr. Parth Lucero OXY Negative Normal NEGATIVE [facility] Comment on above: Performed By: #### L IPID #### [facility] [address] [place] [address] Dr. Parth Lucero PCP Negative Normal NEGATIVE [facility] Comment on above: Performed By: #### L IPID #### [facility] [address] [place] [address] Dr. Parth Lucero PPX Negative Normal NEGATIVE [facility] Comment on above: Performed By: #### L IPID #### [facility] [address] [place] [address] Dr. Parth Lucero TCA Negative Normal NEGATIVE [facility] Comment on above: Performed By: #### L IPID #### [facility] [address] [place] [address] Dr. Parth Lucero THC Negative Normal NEGATIVE [facility] Comment on above: Performed By: #### L IPID #### [facility] [address] [place] [address] Dr. Parth Lucero TYPE AND SCREENon 01-07-2022 TYPE AND SCREEN Negative Normal [facility] Comment on above: Performed By: #### T NS #### [facility] [address] [place] [address] Dr. Parth Lucero GROUP B STREP CULTUREon 11-19 S. agalactiae Ag Ql (Unsp spec) Culture Observations: NEGATIVE FOR GROUP B STREPTOCOCCUS. Normal [facility] Comment on above: Performed By: #### [id number] #### [facility] [address] [address] [address] Parth Lucero GTT 3 HR PREGon 2021 Glucose [Mass/Vol] 93 mg/dL Normal 74-106 [facility] Comment on above: Performed By: #### G TT3P #### [facility] [address] [address] [address] Parth Lucero Glucose [Mass/Vol] 173 mg/dL Normal [facility] Comment on above: Performed By: #### G TT3P #### [facility] [address] [address] [address] Parth Lucero Glucose [Mass/Vol] 149 mg/dL Normal [facility] Comment on above: Performed By: #### G TT3P #### [facility] [address] [place] [address] Dr. Parth Lucero Glucose [Mass/Vol] 128 mg/dL Normal [facility] Comment on above: Performed By: #### G TT3P #### [facility] [address] [place] [address] Dr. Parth Lucero GLUCOSE - 1HRon 10-09-2021 Glucose [Mass/Vol] 150 mg/dL Critically high 74-106 [facility] Comment on above: Performed By: #### G [id number] #### [facility] [address] [place] [address] Dr. Parth Lucero HEMOGRAM AND PLATELon 2021 Hematocrit (Bld) [Volume fraction] 37.6 % Normal 36.0-48.0 [facility] Comment on above: Performed By: #### H H #### [facility] [address] [place] [address] Dr. Parth Lucero Hemoglobin (Bld) [Mass/Vol] 12.3 g/dL Normal 12.0-16.0 [facility] Comment on above: Performed By: #### H H #### [facility] [address] [place] [address] Dr. Parth Lucero MCH (RBC) [Entitic mass] 31.2 pg Normal 26.7-34.0 [facility] Comment on above: Performed By: #### H H #### [facility] [address] [address] [address] Parth Lucero MCHC (RBC) [Mass/Vol] 32.7 g/dL Normal 29.9-35.2 [facility] Comment on above: Performed By: #### H H #### [facility] [address] [address] [address] Parth Lucero MCV (RBC) [Entitic vol] 95.4 fL Normal 81.0-99.0 [facility] Comment on above: Performed By: #### H H #### [facility] [address] [address] [address] Parth Lucero PLT 240 103/ul Normal 150-450 [facility] Comment on above: Performed By: #### H H #### [facility] [address] [address] [address] Parth Lucero RBC 3.94 106/ul Critically low 4.20-5.40 [facility] Comment on above: Performed By: #### H H #### [facility] [address] [address] [address] Parth Lucero WBC 9.7 103/ul Normal 4.0-11.0 [facility] Comment on above: Performed By: #### H H #### [facility] [address] [place] [address] Dr. Parth Lucero PAP ACOG PANEL 2: 21 to 29on 09-02-2021 . . Normal [facility] Comment on above: Performed By: #### [id number] #### [facility] [address] [place] [address] Dr. Parth Lucero Age Gdln ACOG Testing 21-29 Normal [facility] Comment on above: Performed By: #### 4 [id number] #### [facility] [address] [address] [address] Parth Lucero DIAGNOSIS: Comment Normal [facility] Comment on above: Result Comment: NEGA TIVE FOR INTRAEPITHELIAL LESION OR MALIGNANCY. Performed By: #### 4 [id number] #### [facility] [address] [place] [address] Dr. Parth Lucero Methodology: Comment Normal [facility] Comment on above: Result Comment: This liquid based ThinPrep(R) pap test was screened with the use of an image guided system. Performed By: #### 4 [id number] #### [facility] [address] [place] [address] Dr. Parth Lucero Note: Comment Normal [facility] Comment on above: Result Comment: The Pap smear is a screening test designed to aid in the detection of premalignant and malignant conditions of the uterine cervix. It is not a diagnostic procedure and should not be used as the sole means of detecting cervical cancer. Both false-positive and false-negative reports do occur. . Performed By: #### 4 [id number] #### [facility] [address] [place] [address] Dr. Parth Lucero Performed by: Comment Normal [facility] Comment on above: Result Comment: Vivian Paris, [place]ribber (ASCP) Performed By: #### 4 [id number] #### [facility] [address] [place] [address] Dr. Parth Lucero Reflex Criteria: Comment Normal [facility] Comment on above: Result Comment: The HPV DNA reflex criteria were not met with this specimen result therefore, no HPV testing was performed. . Performed By: #### 4 [id number] #### [facility] [address] [place] [address] Dr. Parth Lucero Specimen adequacy: Comment Normal [facility] Comment on above: Result Comment: Sati sfactory for evaluation. No endocervical component is identified. Performed By: #### 4 [id number] #### [facility] [address] [place] [address] Dr. Parth Lucero US PREG ANATOMY SINGLEon [...] by ultrasound, 56% by expected EDC; FL/AC: 0.109091 FL/BPD: 0.460567 HC/AC: 1.605592 GESTATIONAL AGE: Age by EDC: 21 weeks 0 days ARMANI by EDC: 01/12/2022 Age by current US: 20 weeks 1 day ARMANI by current US: 01/11/2022 IMPRESSION: Normal anatomy scan *Reference: AIUM Practice Guideline for the performance of Obstetric Ultrasound Examinations, March 20, 2007. Electronically authenticated by: ALONSO SANDERS Date: 2021-09-01 16:20 Normal [facility] CHLAMYDIA/GONOCOCCUS RIGOBERTO (SW AB/URINE/PAPon 08-29-2021 Chlamydia trachomatis, RIGOBERTO Negative Normal Negative [facility] Comment on above: Performed By: #### L IPID #### [facility] [address] [address] [address] Parth Lucero Neisseria gonorrhoeae, RIGOBERTO Negative Normal Negative [facility] Comment on above: Performed By: #### L IPID #### [facility] [address] [address] [address] Parth Lucero AFP MATERNAL FOR SPINA BIFID Aon 08-18-2021 AFP MoM 1.13 Normal [facility] Comment on above: Performed By: #### 4 [id number] #### [facility] [address] [address] [address] Parth Lucero AFP Value 52.2 ng/mL Normal [facility] Comment on above: Performed By: #### 4 [id number] #### [facility] [address] [address] [address] Parth Lucero AFP, Serum for Spina Bifida Report Normal [facility] Comment on above: Performed By: #### 4 [id number] #### [facility] [address] [address] [address] Parth Lucero Comment Comment Normal [facility] Comment on above: Result Comment: Ruth Viveros, Ph.D., [facility] Director . References: Available Upon Request. . Multiples Of Median Cutoffs For AFP Elevations Ricardo 2.5 Black 2.8 IDD 2.0 Twins 4.5 Abbreviation Definitions IDD - Insulin Dep Diabetes OSBR - Open Spina Bifida Risk . For further inquiries contact [facility] [employer] [facility] at [phone]. Performed By: #### 4 [id number] #### [facility] [address] [place] [address] Dr. Parth Modi Age Collection Date 18.0 weeks Normal [facility] Comment on above: Performed By: #### 4 [id number] #### [facility] [address] [place] [address] Dr. Parth Lucero Gestat, Age Based on LMP Normal [facility] Comment on above: Result Comment: Reca lculations are not recommended when gestational dating by LMP and ultrasound are within 10 days. Performed By: #### 4 [id number] #### [facility] [address] [place] [address] Dr. Parth Lucero Insulin Dep Diabetes No Normal [facility] Comment on above: Performed By: #### 4 [id number] #### [facility] [address] [place] [address] Dr. Parth Lucero Interpretation Comment Normal [facility] Comment on above: Result Comment: Inte [...] Services to discuss available options. The [employer] recommends amniocentesis be offered to women age 35 and older. Performed By: #### 4 [id number] #### [facility] [address] [place] [address] Dr. Parth Lucero [age] Normal [facility] Comment on above: Performed By: #### 4 [id number] #### [facility] [address] [place] [address] Dr. Parth Lucero Multiple Gestation No Normal [facility] Comment on above: Performed By: #### 4 [id number] #### [facility] [address] [place] [address] Dr. Parth Lucero OSBR Risk 1 [place] [address] Normal [facility] Comment on above: Performed By: #### 4 [id number] #### [facility] [address] [place] [address] Dr. Parth Lucero PDF . Normal [facility] Comment on above: Result Comment: This test was developed and its performance characteristics determined by [employer] [facility]. It has not been cleared or approved by the Food and Drug Administration. Performed By: #### 4 [id number] #### [facility] [address] [place] [address] Dr. Parth Lucero Race Normal [facility] Comment on above: Performed By: #### 4 [id number] #### [facility] [address] [place] [address] Dr. Parth Lucero Test Results: Negative Normal [facility] Comment on above: Performed By: #### 4 [id number] #### [facility] [address] [place] [address] Dr. Parth Lucero HEP B SURFACE ANTIGEN SCREEN on 06-25-2021 HBsAg Screen Negative Normal Negative [facility] Comment on above: Performed By: #### H BSANS #### [facility] [address] [place] [address] Dr. Parth Lucero HEPATITIS C VIRUS AB W/ REFL EX QUANTon 06-25-2021 HCV AB <0.1 Normal 0.0-0.9 [facility] Comment on above: Performed By: #### 4 [id number] #### [facility] [address] [place] [address] Dr. Parth Lucero Interpretation: Comment Normal [facility] Comment on above: Result Comment: Nega tive Not infected with HCV, unless recent infection is suspected or other evidence exists to indicate HCV infection. Performed By: #### 4 [id number] #### [facility] [address] [place] [address] Dr. Parth Lucero HIV 1 AND 2 WITH REFLEXon HIV Screen 4th Generation wRfx Non-Reactive Normal Non Reactive [facility] Comment on above: Performed By: #### L IPID #### [facility] [address] [place] [address] Dr. Parth Lucero RPR QUANTon 06-25-2021 Rapid Plasma Reagin, Quant Non-Reactive Normal NonRea<1:1 [facility] Comment on above: Performed By: #### L IPID #### [facility] [address] [place] [address] Dr. Parth Lucero RUBELLA AB IGGon 06-25-2021 Rubella Antibodies, IgG 13.00 index Normal Immune >0.99 [facility] Comment on above: Result Comment: Non- immune <0.90 Equivocal 0.90 - 0.99 Immune >0.99 Performed By: #### 4 [id number] #### [facility] [address] [place] [address] Dr. Parth Lucero CBC AUTO DIFFon 06-23-2021 BASO # 0.0 103/ul Normal 0.0-0.1 [facility] Comment on above: Performed By: #### L IPID #### [facility] [address] [place] [address] Dr. Parth Lucero Basophils/100 WBC (Bld) 0.3 % Normal 0.2-2.0 [facility] Comment on above: Performed By: #### L IPID #### [facility] [address] [address] [address] Parth Lucero EO # 0.1 103/ul Normal 0.0-0.7 [facility] Comment on above: Performed By: #### L IPID #### [facility] [address] [place] [address] Dr. Parth Lucero Eosinophils/100 WBC (Bld) 1.1 % Normal 0.9-7.0 [facility] Comment on above: Performed By: #### L IPID #### [facility] [address] [place] [address] Dr. Parth Lucero Erythrocyte distribution width (RBC) [Ratio] 12.7 % Normal 11.0-15.0 [facility] Comment on above: Performed By: #### L IPID #### [facility] [address] [place] [address] Dr. Parth Lucero Hematocrit (Bld) [Volume fraction] 38.2 % Normal 36.0-48.0 [facility] Comment on above: Performed By: #### L IPID #### [facility] [address] [place] [address] Dr. Parth Lucero Hemoglobin (Bld) [Mass/Vol] 13.0 g/dL Normal 12.0-16.0 [facility] Comment on above: Performed By: #### L IPID #### [facility] [address] [place] [address] Dr. Parth Lucero IG # 0.04 10e3/ul Critically high 0.00-0.03 [facility] Comment on above: Performed By: #### L IPID #### [facility] [address] [place] [address] Dr. Parth Lucero IG % 0.4 % Normal 0.0-0.5 [facility] Comment on above: Performed By: #### L IPID #### [facility] [address] [place] [address] Dr. Parth Lucero LYMPH # 2.3 103/ul Normal 1.2-3.8 [facility] Comment on above: Performed By: #### L IPID #### [facility] [address] [place] [address] Dr. Parth Lucero Lymphocytes/100 WBC (Bld) 23.8 % Normal 20.5-60.0 [facility] Comment on above: Performed By: #### L IPID #### [facility] [address] [place] [address] Dr. Parth Lucero MANUAL DIFF REQ NO Normal [facility] Comment on above: Performed By: #### L IPID #### [facility] [address] [place] [address] Dr. Parth Lucero MCH (RBC) [Entitic mass] 31.6 pg Normal 26.7-34.0 [facility] Comment on above: Performed By: #### L IPID #### [facility] [address] [place] [address] Dr. Parth Lucero MCHC (RBC) [Mass/Vol] 34.0 g/dL Normal 29.9-35.2 [facility] Comment on above: Performed By: #### L IPID #### [facility] [address] [place] [address] Dr. Parth Lucero MCV (RBC) [Entitic vol] 92.9 fL Normal 81.0-99.0 [facility] Comment on above: Performed By: #### L IPID #### [facility] [address] [place] [address] Dr. Parth Lucero MONO # 0.8 103/ul Normal 0.3-0.8 [facility] Comment on above: Performed By: #### L IPID #### [facility] [address] [place] [address] Dr. Parth Lucero Monocytes/100 WBC (Bld) 7.6 % Normal 1.7-12.0 [facility] Comment on above: Performed By: #### L IPID #### [facility] [address] [place] [address] Dr. Parth Lucero NEUT # 6.6 103/ul Critically high 1.4-6.[address] [facility] Comment on above: Performed By: #### L IPID #### [facility] [address] [address] [address] Parth Lucero Neutrophils/100 WBC (Bld) 66.8 % Normal 43.0-75.0 [facility] Comment on above: Performed By: #### L IPID #### [facility] [address] [place] [address] Dr. Parth Lucero Platelet mean volume (Bld) [Entitic vol] 9.4 fL Critically low 9.5-13.5 [facility] Comment on above: Performed By: #### L IPID #### [facility] [address] [place] [address] Dr. Parth Lucero PLT 320 103/ul Normal 150-450 [facility] Comment on above: Performed By: #### L IPID #### [facility] [address] [place] [address] Dr. Parth Lucero RBC 4.11 106/ul Critically low 4.20-5.40 [facility] Comment on above: Performed By: #### L IPID #### [facility] [address] [place] [address] Dr. Parth Lucero WBC 9.8 103/ul Normal 4.0-11.0 [facility] Comment on above: Performed By: #### L IPID #### [facility] [address] [place] [address] Dr. Parth Lucero CULTURE URINEon 06-23-2021 CULTURE URINE Culture Observations : MODERATE GROWTH OF MIXED GENITAL BERNARDINO. NO POTENTIAL PATHOGENS SEEN. Normal [facility] Comment on above: Performed By: #### U RCX #### [facility] [address] [place] [address] Dr. Parth Lucero GLYCOHEMOGLOBIN A1Con 2021 ADA RECOMMENDATION ADA THERAPEUTIC TARGET 6.0 - 7.0 ACTION SUGGESTED > 7.0 Normal [facility] Comment on above: Performed By: #### A 1C #### [facility] [address] [place] [address] Dr. Parth Lucero Glucose [Mass/Vol] 105 mg/dL Normal [facility] Comment on above: Performed By: #### A 1C #### [facility] [address] [place] [address] Dr. Parth Lucero HbA1c (Bld) [Mass fraction] 5.3 % Normal <=6.0 [facility] Comment on above: Performed By: #### A 1C #### [facility] [address] [place] [address] Dr. Parth Lucero TAYLA BOX TEST PT SEND OUTo n 06-23-2021 SENT TO REF LAB 06/23/2021 Normal [facility] Comment on above: Performed By: #### 4 [id number] #### [facility] [address] [place] [address] Dr. Parth Lucero TYPE AND SCREENon 06-23-2021 TYPE AND SCREEN Negative Normal [facility] Comment on above: Performed By: #### 4 [id number] #### [facility] [address] [place] [address] Dr. Parth Lucero US PREG TVon 06-15-2021 [...] ALONSO SANDERS Date: 2021-06-15 09:44 Normal [facility] Auth for Release of Medical Recordson 06-05-2021 Auth for Release of Medical Records [id number]. [id number]:127 Normal [facility] Vital Signs Date Time Vital Sign Value Performing Clinician Facility 04-16-2024 14:180400 Body height 160 cm Jeet Tavares MD Work Phone: [facility] 04-16-2024 14:18-0400 Body mass index (BMI) [Ratio] 26.39 kg/m2 Jeet Tavares MD Work Phone: [facility] 04-16-2024 14:18-0400 Body weight 67.59 kg Jeet Tavares MD Work Phone: [facility] 04-16-2024 14:18-0400 Diastolic blood pressure 78 mm[Hg] Jeet Tavares MD Work Phone: [facility] 04-16-2024 14:18-0400 Heart rate 102 /min Jeet Tavares MD Work Phone: [facility] 04-16-2024 14:18-0400 Systolic blood pressure 133 mm[Hg] Jeet Tavares MD Work Phone: [facility] 04-03-2024 14:57-0400 Body mass index (BMI) [Ratio] 25.4 kg/m2 Jorge Luis Katrin DO Work Phone: [facility] 04-03-2024 14:57-0400 Body weight 67.13 kg Jorge Luis Katrin DO Work Phone: [facility] 04-03-2024 14:57-0400 Diastolic blood pressure 64 mm[Hg] Jorge Luis Katrin DO Work Phone: [facility] 04-03-2024 14:57-0400 Systolic blood pressure 100 mm[Hg] Jorge Luis Katrin DO Work Phone: [facility] 08-18-2021 18:08-0500 Body weight 63.[address] RODNEY CAPUTO [facility] Comment on above: Performed By: #### [id number] #### [facility] [address] [place] [address] Dr. Parth Lucero Encounters Encounter Date Encounter Type Care Provider Facility Start: 04-16-2024 End: 04-16-2024 Office outpatient new 45 minutes Jeet Tavares MD Work Phone: [facility] Comment on above: Echogenic focus of h eart of fetus affecting antepartum care of mother, single or unspecified fetus (Primary Dx); Low lying placenta, antepartum; Suspected condition not found; Family history of congenital heart defect; 23 weeks gestation of Start: 04-16-2024 End: 04-16-2024 ambulatory [facility] Start: 04-11-2024 End: 04-11-2024 Chart abstracting Jeet Tavares MD Work Phone: [facility] Start: 04-03-2024 End: 04-03-2024 flow sheet Jorge Luis Katrin DO Work Phone: [facility] Comment on above: 21 weeks gestation [...] Available Start: 12-07-2023 End: 12-07-2023 ambulatory EMILY Grimaldo DOLKAYLEE Not Available Start: 11-16-2023 End: 11-16-2023 ambulatory EMILY D DOLCE Not Available Start: 10-26-2023 End: 10-26-2023 ambulatory EMILY Dillan PAOLAKAYLEE Not Available Start: 10-12-2023 End: 10-12-2023 ambulatory EMILY GUEVARAKAYLEE Not Available Start: 06-28-2023 End: 06-28-2023 ambulatory JORGE LUIS WILKES Not Available Start: 03-29-2022 End: 03-30-2022 ambulatory [...] without abnormal findings DR RODNEY CAPUTO [facility] Start: 08-26-2021 End: 08-26-[address] [...] stick/tabl et rgnt non-auto w/o micrscp Jorge Luisanalilia Vazquezo DO Work Phone: Start: 03-28-2024 AFP, SERUM, OPEN SPI NA BIFIDA Bibiana MONROY Work Phone: Start: 01-27-2024 Antibody screen Jeet salcido MD Work Phone: Start: 01-27-2024 Blood count complete automated Not In System Ref Prov Start: 01-27-2024 CHLAMYDIA/GC BY PCR MARIAA SWAB Not In System Ref Prov Start: 01-27-2024 Hepatitis c antibody No t In System Ref Prov Start: 01-27-2024 HIV 1&2 AB/AG SCREEN (P24 AG) Not In System Ref Prov Start: 01-27-2024 Iaad ia hepatitis b surface antigen Not In System Ref Prov Start: 01-27-2024 TYPE AND SCREEN Not In System Ref Prov Start: 01-07-2022 Delivery of Products of Conception, External Approach DR RODNEY CAPUTO Start: 01-07-2022 Repair Perineum Musc le, Open Approach DR RODNEY CAPUTO Plan of Treatment Date Care Activity Detail Author Start: 04-16-2025 Adult BMI Screening Adult BMI Screen ing [facility] Start: 04-16-2025 Tobacco Screening Tobacco Screening [facility] Start: 05-15-2024 End: 05-15-2024 Patient encounter procedure 05/15/2024 10:15 AM EST Appointment [facility] - Ultrasound [address] [place] [id number] [facility] Start: 05-07-2024 End: 05-07-2024 Patient encounter procedure 05/07/2024 4:00 PM EST Routine [facility] [address] [place] [id number] Bibiana Alcantara PA [address] [place] [address] [facility] Start: 04-16-2024 End: 04-16-2025 US MFM with or without consult US MFM with or without consult Imaging Routine Echogenic focus of heart of fetus affecting antepartum care of mother, single or unspecified fetus Low lying placenta, antepartum Expected: 04/16/2024, Expires: 04/16/2025 [facility] Work Phone: Comment on above: Expected: 04/16/2024 , Expires: 04/16/2025 Start: 04-16-2024 End: 04-16-2024 Patient encounter procedure [facility] Start: 04-04-2024 End: 04-04-2024 Patient encounter procedure 04/04/2024 3:10 PM EDT Routine [facility] [address] [place] [id number] Jorge Luis Wilkes, DO [address] [place] [address] [facility] Start: 04-03-2024 End: 04-03-2024 Patient encounter procedure 04/03/2024 2:20 PM EDT Routine [facility] [address] [place] [id number] Jorge Luis Wilkes, DO [address] [place] [address] Arrived [facility] Comment on above: Arrived Start: 04-03-2024 End: 04-03-2025 CBC panel - Blood by Automated count CBC Lab Routine Diabetes mellitus screening Expected: 04/03/2024 (Approximate), Expires: 04/03/2025 [facility] Comment on above: Expected: 04/03/2024 (Approximate), Expires: 04/03/2025 Start: 04-03-2024 End: 04-03-2025 Measurement of glucose 1 hour after glucose challenge for glucose tolerance test Glucose tolerance, 1 hour Lab Routine Diabetes mellitus screening Expected: 04/03/2024 (Approximate), Expires: 04/03/2025 [facility] Comment on above: Expected: 04/03/2024 (Approximate), Expires: 04/03/2025 Start: 04-03-2024 End: 04-03-2025 US for US OB INCOMPLETE ANATOMY Imaging Routine Encounter for follow-up ultrasound of anatomy Expected: 04/03/2024 (Approximate), Expires: 04/03/2025 [facility] Work Phone: Comment on above: Expected: 04/03/2024 (Approximate), Expires: 04/03/2025 Start: 02-19-2024 Influenza vaccination Influenza Vacc ine [facility] Start: 10-15-2012 Screening for malign ant neoplasm of cervix Pap Smear [facility] Start: 10-15-2010 DTaP,Tdap and Td Vaccines (1 - Tdap) DTaP,Tdap and Td Vaccines (1 - Tdap) [facility] Start: 10-15-2009 Adult BMI Follow Up Plan Adult BMI Follow Up Plan [facility] Start: 10-15-2009 Adult BMI Screening Adult BMI Screen ing [facility] Start: 2003 Depression Screening Depression Scre ening [facility] Start: 2003 Tobacco Screening Tobacco Screening [facility] Payers Date Payer Category Payer Private Health Insurance [employer] [id number] 2017 Unknown [employer] [id number] 2017-Present [address] [place] [address] [id number] 1991 Unknown [id number] 1991 Unknown [id number] 1991 Unknown [id number] 2.16.840.1.807264.3.579.2. 593 1991 Unknown [id number] 2.16.840.1.688609.3.579.2. 593 1991 Unknown [id number] 2.16.840.1.557033.3.579.2. 593 1991 Unknown [id number] 2.16840.1.227399.3.579.2. 593 1991 Unknown [id number] 2.840.1.192277.3.579.2. 593 1991 Unknown [id number] 2.840.1.547372.3.579.2. 593 1991 Unknown [id number] 2.840.1.235239.3.579.2. 593 1991 Unknown [id number] 2.16840.1.468514.3.579.2. 593 1991 Unknown [id number] 2.16840.1.816260.3.579.2. 593 1991 Unknown [id number] 2.16840.1.191847.3.579.2. 593 1991 Unknown [id number] 2.840.1.754129.3.579.2. 593 1991 Unknown [id number] 2.16.840.1.028345.3.579.2. 593 1991 Unknown [id number] 2.16.840.1.238664.3.579.2. 593 1991 Unknown [id number] 2.16.840.1.023716.3.579.2. 1259 1991 Unknown [id number] 2.16.840.1.344187.3.579.2. 1258 1991 Unknown [id number] 2.16.840.1.647015.3.579.2. 1258 1991 Unknown [id number] 2.16.840.1.880562.3.579.2. 1258 1991 Unknown [id number] 2.16.840.1.726850.3.579.2. 1258 1991 Unknown [id number] 2.16.840.1.112424.3.579.2. 1258 1991 Unknown [id number] 2.16.840.1.488729.3.579.2. 1258 1991 Unknown [id number] 2.16.840.1.468286.3.579.2. 1258 1991 Unknown [id number] 2.16.840.1.310254.3.579.2. 1258 1991 Unknown [id number] 2.16.840.1.278129.3.579.2. 1258 1991 Unknown [id number] 2.16.840.1.017889.3.579.2. 1285 1991 Unknown [id number] 2.16.840.1.790702.3.579.2. 1286 1959 Self-pay 1959 Unknown [id number] [facility] 1.2.840.053026.1.13.424.2. [id number] Unknown [id number] 2.16.840.1.249550.3.579.2. 593 Social History Date Type Detail Facility Start: 10-12-2023 End: 04-11-2024 Tobacco smoking status NHIS Never smoked tobacco [facility] Start: 10-12-2023 End: 04-11-2024 Tobacco use and exposure Smokeless tobacco non-user [facility] Start: 02-06-2024 End: 04-16-2024 Alcoholic beverage intake Ex-drinker (finding) [facility] Start: 02-06-2024 End: 04-16-2024 Alcoholic beverage intake [facility] Start: 12-07-2023 End: 04-16-2024 Tobacco use panel [facility] Start: 11-20-2023 [facility] Start: 1990 Sex assigned at Not on file [facility] Start: 04-10-2024 Sex Female (finding) [facility] Within the past 12 months we worried whether our food would run out before we got money to buy more. Never True [facility] Goals Date Patient Goal Desired Activity /State Personal health goal History of Present illness Narrative 04-16-2024 Jeet Tavares MD - 04/16/2024 2:15 PM EDTScamelia May RN - 04/16/2024 2:15 PM EDT Note Date & Type Note Facility 04-16-2024 History of Present illness Narrative [facility] Consult Note Reason For Consult: HPI: Cindy Rocha is a 33 y.o. @ 23w1d who presented for consultation from Jorge Luis Cooper DO regarding Chief Complaint Patient presents with EIF Patient Active Problem List Diagnosis cardiac echogenic focus, antepartum She reports that she is doing well. She reports normal movements and she denies LOF, contractions, vaginal bleeding, headache, blurry vision, RUQ pain and edema. The primary encounter diagnosis was Echogenic focus of heart of fetus affecting antepartum care of mother, single or unspecified fetus. Diagnoses of Low lying placenta, antepartum, Suspected condition not found, Family history of congenital heart defect, and 23 weeks gestation of were also pertinent to this visit. She has had low risk aneuploidy screen for select aneuploidy of chromosomes 21, 13, 18 and sex chromosomes, as well as maternal serum alpha fetoprotein screen for spina bifida. Review of systems: Review of systems was noncontributory Complications: Problem List Items Addressed This Visit None Visit Diagnoses Echogenic focus of heart of fetus affecting antepartum care of mother, single or unspecified fetus - Primary Relevant Orders US MFM with or without consult Low lying placenta, antepartum Relevant Orders US MFM with or without consult Suspected condition not found Family history of congenital heart defect 23 weeks gestation of PMH: Past Medical History: Diagnosis Date Pulse irregularity PSHIST: Past Surgical History: Procedure Laterality Date TONSILLECTOMY WISDOM TOOTH EXTRACTION OB Hx: OB History Para Term AB Living 3 1 1 1 1 SAB IAB Ectopic Multiple Live Births 1 1 # Outcome Date GA Lbr King/2nd Weight Sex Type Anes PTL Lv 3 Current 2 SAB 09/19/23 1 Term 01/07/22 39w0d 3.005 kg F Vag-Spont N LENNOX PREECLAMPSIA SCREEN ([place] Preventive Services Task Force) Patient is at high risk if 1 or more factors present. Incidence of preeclampsia is >= 8%: Prior preeclampsia NO Multiple gestation NO Chronic hypertension NO Type 1 or 2 diabetes NO Renal disease NO Autoimmune disease NO (Lupus, APLS) Patient is at moderate risk is several risk factors are present: Nulliparity NO Obesity (BMI >= 30) NO Family history of preeclampsia NO (Mother, sister) NO Sociodemographic characteristics NO (AA, low socioeconomic status) Age >= 35 NO Personal history factor NO (Previous SGA, adverse outcome, > 10 years from last ) Allergies: Allergies Allergen Reactions Penicillins Rash Meds: Prior to Admission medications Medication Sig Start Date End Date Taking? Authorizing Provider [id number] [id number] mg-mcg tablet Take 1 tablet by mouth in the morning. Not In System Ref Prov SH: Social History Socioeconomic History Marital status: Spouse name: Not on file Number of children: Not on file Years of education: Not on file Highest education level: Not on file Occupational History Not on file Tobacco Use Smoking status: Never Smokeless tobacco: Never Vaping Use Vaping status: Never Used Substance and Sexual Activity Alcohol use: Not Currently Drug use: Never Sexual activity: Yes Partners: Male Other Topics Concern Not on file Social History Narrative Not on file Social Drivers of Health Financial Resource Strain: Not on file Food Insecurity: No Food Insecurity (04/16/2024) Hunger Screening Food Insecurity - Worry: Never True Food Insecurity - Inability: Never True Transportation Needs: Not on file Physical Activity: Not on file Stress: Not on file Social Connections: Not on file Interpersonal Safety: Not on file Housing Instability: Not on file Physical Exam: Vital Signs Vitals: 04/16/24 1418 BP: 133/78 Pulse: 102 Weight: 67.6 kg (149 lb) Height: 160 cm (5' 3 ) Physical Exam: Gen: Not in acute distress, alert and oriented. Eyes: Pupils equal and reactive Chest: Nonlabored breathing Cardiac: Pulse was regular on vital signs assessment Abdomen: Gravid Skin/extremities: Appears intact. No visible lesions MS:no visible edema Neuro: No focal deficits Assessment/Plan 33 y.o. @ 23w1d here for consultation regardin. Echogenic focus of heart of fetus affecting antepartum care of mother, single or unspecified fetus 2. Low lying placenta, antepartum 3. Suspected condition not found Reviewed sonographic evaluation from today and there was no note of echogenic intracardiac focus as well as the placenta appears to be within a normal location and no evidence of low-lying placenta location. The couple had questions regarding echogenic intracardiac focus. Reviewed with them that an EIF is defined as a small (<6 mm) echogenic area in either cardiac ventricle that is as bright as the surrounding bone and visualized in at least 2 separate planes. EIFs are identified in 3% to 5% of karyotypically normal fetuses, and ethnic variation exists. The pathogenesis of this finding is unclear. EIFs do not represent a structural or functional cardiac abnormality, and they are not associated with cardiac malformations in the fetus or . For people with negative serum or cfDNA screening results and an isolated EIF, we recommend no further evaluation, as this finding is a normal variant of no clinical importance with no indication for echocardiography, follow-up ultrasound imaging, or evaluation. The couple was reassured 4. Family history of congenital heart defect The couple reports that the paternal aunt was born with a cardiac defect that required surgery at 1 month of life. No paternal or maternal history of cardiac defects. Their older daughter was born with a heart murmur however it went away after a month as well however without a confirmation of a congenital cardiac defect. Detailed anatomic evaluation of the heart today did not note any abnormalities. Reviewed with them the physiologic changes in with circulation to circulation transition. They vocalized understanding. Routine assessment recommended. 5. 23 weeks gestation of Echogenic focus of heart of fetus affecting antepartum care of mother, single or unspecified fetus [[id number]] Recommendations: Follow-up for completion of limited anatomy in 4 weeks Delivery recommended at or after 39 weeks, earlier as clinically indicated Plan reviewed with patient. She vocalized understanding all questions answered. The patient is to continue with routine care in your office [facility], the CDC, and other organizations representing maternal and public health professionals recommend that , , and lactating people and those considering receive the COVID-19 vaccination. Vaccination is the best method to reduce maternal and complications of SARS-CoV-2 infection. This document was created with [employer] technology. Though I make every effort to review the dictation as it is transcribed, on occasion the spoken word can be misinterpreted by the technology leading to inappropriate words, phrases, or sentences. This note is addressed to the requesting provider as a consultation for clinical guidance. Specific medical abbreviations are occasionally used and those are generally approved by the [place]?Board of?Obstetrics and?Gynecology?as well as?Steve s abbreviations. The above plan of care was based solely on the diagnoses for which a consultation was requested. ?More frequent testing may be indicated based on her other medical/obstetrical conditions. The management of other or medical conditions is beyond the scope of requested consultation and will continue to be followed by the primary node js developer or primary care provider. Thank you for allowing me to participate in her care. Please contact me if you have any concerns. Total time spent was 45 minutes: Preparing to see the patient (e.g., review of tests) Obtaining and/or reviewing separately obtained history Performing a medically appropriate examination and/or evaluation Counseling and educating the patient/family/caregiver Ordering medications, tests, or procedures Referring and communicating with other health critical care cns (not separately reported) Documenting clinical information in the electronic or other health record Independently interpreting results (not separately reported) and communicating results to the patient/family/caregiver Care coordination (not separately reported) Headache/epigastric pain/blurry vision/swelling? no Cramping/contractions? no Abnormal vaginal discharge? no Spotting/vaginal bleeding? no Loss or gush of fluid like your water may have broken? no Do you have cats at home? no Do you change the litter box (reason: risk of toxoplasmosis)? Genetic testing done this here or other office? yes Have you been seen here at [facility] in a previous ? no Recent ER visits or hospitalizations? no Bring blood sugar log or meter with you today? (Please bring them with you for every visit at [facility]) n/a Flu vaccine (Apr-August)? no Any concerns that you would like me to mention to the provider today? no documented in this encounter [facility] History of Present illness Narrative 04-03-2024 Ivana [...] Name Age of Onset Arthritis Mother Melita Campa Diabetes Mother Melita Campa Rheum arthritis Mother [...] nursing note reviewed. Exam conducted with a beef tagger present. Vitals: Estimated body mass index is [...] Luis Wilkes DO documented in this encounter [facility] Evaluation note Note Date & Type Note Facility Evaluation note Diagnosis 21 weeks gestation of Second trimester state, incidental Encounter for follow-up ultrasound of anatomy Diabetes mellitus screening Screening for diabetes mellitus documented in this encounter [facility] Evaluation note Note Date & Type Note Facility Evaluation note Diagnosis Echogenic focus of heart of fetus affecting antepartum care of mother, single or unspecified fetus- Primary Low lying placenta, antepartum Suspected condition not found Observation for unspecified suspected condition Family history of congenital heart defect 23 weeks gestation of documented in this encounter [facility] Instructions Note Date & Type Note Facility Instructions Not on filedocumented in this en counter [facility] Instructions Note Date & Type Note Facility Instructions Not on filedocumented in this en counter [facility] Summary Purpose Family History No Family History Records FoundNo Family History Records FoundNo Family History Records FoundNo Family History Records Found Advance Directives No Advanced Directives Records FoundNo Advanced Directives Records FoundNo Advanced Directives Records FoundNo Advanced Directives Records Found Additional Source Comments INFORMATION SOURCE (unrecogn ized section and content) DATE CREATED AUTHOR 06/06/2021 Maged Gurpreet [facility] DATE CREATED AUTHOR AUTHOR'S ORGANIZ ATION 05/12/[address] [facility] DATE CREATED AUTHOR AUTHOR'S ORGANIZ ATION 04/05/2024 [facility] EPIC DATE CREATED AUTHOR AUTHOR'S ORGANIZ ATION 04/17/2024 [facility] Care Teams (unrecognized sec tion and content) Barrel Line Operator 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 Specialty Start Date End Date Tamir Fuentes MD [address] [place] [address] PCP - General Family Medicine 10/12/23 Merlene Choe MD [address] [place] [address] Referring Physician Internal Medicine 10/12/23 Barrel Line Operator 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 Specialty Start Date End Date Tamir Fuentes MD [address] [place] [address] PCP - General Family Medicine 10/12/23 Merlene Choe MD [address] [place] [address] Referring Physician Internal Medicine 10/12/23 Reason for Visit (unrecogniz ed section and content) Reason Comments Routine Visit Reason Comments EIF FOR RECORDS PERTAINING TO PATIENTS WHO ARE [...] BE BASED ON THE PRIMARY CLINICAL RECORDS. [employer] provides no warranty or guarantee of the accuracy or completeness of information in this document.
[2024-04-28 09:40] LABS: Basophils Absolute Auto 0.1 10^3/uL (0.0-0.1); Basophils Percent Auto 0.5 % (0.2-2.0); Eosinophils Absolute Auto 0.2 10^3/uL (0.0-0.7); Eosinophils Percent Auto 1.6 % (0.9-7.0); Hematocrit 37.9 % (36.0-48.0); Hemoglobin 12.5 g/dL (12.0-16.0); Immature Granulocytes Abs Auto 0.23 10^3/uL (0.00-0.03); Immature Granulocytes Pct Auto 1.8 % (0.0-0.5); Lymphocytes Absolute Auto 2.1 10^3/uL (1.2-3.8); Mean Corpuscular Hemoglobin 31.5 pg (26.7-34.0); Mean Corpuscular Volume 95.5 fL (81.0-99.0); Mean Platelet Volume 9.5 fL (9.5-13.5); Monocytes Absolute Auto 0.9 10^3/uL (0.3-0.8); Monocytes Percent Auto 6.8 % (1.7-12.0); Neutrophils Absolute Auto 9.1 10^3/uL (1.4-6.5); Neutrophils Percent Auto 72.3 % (43.0-75.0); Platelet Count 244 10^3/uL (150-450); Red Blood Count 3.97 10^6/uL (4.20-5.40); Red Cell Distribution Width 12.9 % (11.0-15.0); White Blood Count 12.6 10^3/uL (4.0-11.0)
[2024-04-28 09:53] LABS: Glucose 1 Hour 146 mg/dL (<130)
== END 2024-04-28 08:29 | disposition home or self-care (01) ==
LOC: LAB 08:29
PROVIDERS: Visit Provider Obstetrics & Gynecology
DX: Z13.1 Encounter for screening for diabetes mellitus (principal)
CPT/HCPCS: 36415; 82950; 85025

== ENCOUNTER 2024-05-05 08:02 | Outpatient (OUT) | payer OTHER, SELFPAY ==
--- OUTSIDE RECORDS SUMMARY | 2024-05-05 08:04 | XMS_ITS | CCD ---
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 Role Phone HARSHAL, DR STEVENS [...] Referring Unavailable DOLCE, EMILY Grimaldo Attending Unavailable DOLCE, EMILY Grimaldo Attending Unavailable DOLCE, EMILY Grimaldo Attending Unavailable KATRIN, JORGE LUIS Attending Unavailable QUINTON, BIBIANA Attending Unavailable KATRIN, JORGE LUIS Attending Unavailable Unavailable Primary Care Provider Unavailabl e KATRIN, JORGE LUIS R Referring Unavailable MOUSSA, JEET NADIM Attending Unavailable KATRIN, JORGE LUIS R Referring Unavailable Allergies Allergy Classification Reported Allergen(s) Allergy Type Date of Onset Reaction(s) Facility (1 source) Penicillin Drug Allergy [facility] Repository (5 sources) Penicillin G Drug Allergy 4 Rash [facility] Work Phone: (6 sources) Penicillins; Translations: [PENICILLINS] Drug Allergy 4 [facility] (2 sources) Penicillins Propensity to adverse reactions to drug 4 [facility] Medications Current Medications Medication Drug Class(es) Dates Sig (Normalized) Sig (Original) [id number] fumarate-FA 28-800 mg-mcg tablet (2 sources) take 1 tablet by mouth in the morning [id number] fumarate-FA 28-800 mg-mcg tablet Take 1 tablet by mouth in the morning. Active Vit-Fe Fumarate-FA ( Vitamins) 28-0.8 MG tablet (5 sources) Start: 01-09-2024 End: 01-08-2025 take 1 [...] gestation of ] Onset: 04-16-2024 Episodic Unclassified (5 sources) OB Reminders Onset: 01-20-2024 01-20-2024 Unclassified [...] NEGATED: Highlighted row has been ruled out!Unclassified (5 sources) No known active problems 12-07-2023 Results Test Name Value Interpretation Reference Range Facility ALL CBC WITH AUTO DIFFon BASOPHILS ABSOLUTE AUTO 0.1 [facility] Basophils/100 WBC (Bld) 0.5 % 0.2 - 2.0 % [facility] Eosinophils/100 WBC (Bld) 1.6 % 0.9 - 7.0 % [facility] Erythrocyte distribution width (RBC) [Ratio] 12.9 % 11.0 - 15.0 % [facility] Hematocrit (Bld) [Volume fraction] 37.9 % 36.0 - 48.0 % [facility] Hemoglobin (Bld) [Mass/Vol] 12.5 g/dL 12.0 - 16.0 g/dL [facility] IMMATURE GRANULOCYTES ABS AUTO 0.23 High [facility] Immature granulocytes/100 WBC (Bld) 1.8 % High 0.0 - 0.5 % [facility] Interpretation and review of laboratory results Abnormal [facility] LYMPHOCYTES ABSOLUTE AUTO 2.1 [facility] Lymphocytes/100 WBC (Bld) 17 % Low 20.5 - 60.0 % [facility] MCH (RBC) [Entitic mass] 31.5 pg 26.7 - 34.0 pg [facility] MCHC (RBC) [Mass/Vol] 33 g/dL 29.9 - 35.2 g/dL [facility] MCV (RBC) [Entitic vol] 95.5 fL 81.0 - 99.0 fL [facility] MONOCYTES ABSOLUTE AUTO 0.9 High [facility] Monocytes/100 WBC (Bld) 6.8 % 1.7 - 12.0 % [facility] NEUTROPHILS ABSOLUTE AUTO 9.1 High [facility] Neutrophils/100 WBC (Bld) 72.3 % 43.0 - 75.0 % [facility] Platelet mean volume (Bld) [Entitic vol] 9.5 fL 9.5 - 13.5 fL [facility] TBH EO # 0.2 [facility] PLT 244 [facility] RBC 3.97 Low [facility] WBC 12.6 High [facility] Urinalysis macro (dipstick) panel (U)on 04-03-2024 Bilirubin, UA Negative Negative - 4(70) +++ mg/dL [facility] Blood, UA Negative Negative - 50 Grey/mcL [facility] Clarity, UA Clear [facility] Color, UA Yellow [facility] Glucose, UA Negative Negative - 2000(110) ++++ mg/dL [facility] Interpretation and review of laboratory results Normal [facility] Ketones, UA Negative Negative - 160(16) ++++ mg/dL [facility] Leukocytes, UA Negative Negative - 500+++ Juan Alberto/mcL [facility] Nitrite, UA Negative Negative - Positive [facility] pH, UA 6.5 5 - 9 [facility] Protein, UA Negative Negative - 2000(20) ++++ mg/dL [facility] Spec Grav, UA 1.02 1 - 1.03 [facility] Urobilinogen, UA 0.2 0.2 - 12 mg/dL [facility] AFP, SERUM, OPEN SPINA BIFID Aon 03-31-2024 AFP MOM 1.42 . [facility] AFP VALUE 88.7 ng/mL . [facility] COMMENT: Comment . [facility] Comment on above: Radha Viveros , Ph.D., [facility] Director References: Available Upon Request. Multiples Of Median Cutoffs For AFP Elevations Ricardo 2.5 Black 2.8 IDD 2.0 Twins 4.5 Abbreviation Definitions IDD - Insulin Dep Diabetes OSBR - Open Spina Bifida Risk For further inquiries contact [facility] at [phone]. This test was developed and its performance characteristics determined by [facility]. It has not been cleared or approved by the Food and Drug Administration. Performed at: - [facility] [address], [place], [place] [id number] Desk Maker: Priya Jung [facility], Phone: [phone] GEST. AGE ON COLLECTION DATE 20.4 . weeks [facility] GESTAT. AGE BASED ON As provided . [facility] Comment on above: Recalculations are n ot recommended when gestational dating by LMP and ultrasound are within 10 days. INSULIN DEP DIABETES No . [facility] INTERPRETATION Comment . [facility] Comment on above: Interpretation: Scre en [...] Customer Services to discuss available options. The [employer] recommends amniocentesis be offered to women age 35 and older. [age] [facility] MULTIPLE GESTATION No . [facility] OSBR RISK 1 IN 3404 . [facility] RACE . [facility] RESULTS Report . [facility] TEST RESULTS: Negative . [facility] WEIGHT 137 . lbs [facility] N N [id number] 1 17 N 1 Y 137 N N N N N White/ [facility] CBC without diffon Hematocrit (Bld) [Volume fraction] 40.3 % [facility] Hemoglobin (Bld) [Mass/Vol] 13.3 g/dL [facility] Platelets (Bld) [#/Vol] 329 10*3/uL [facility] Rbc Mcv (Fl) By Automated Count 93.[address] [facility] Chlamydia/GC by PCR Mariaa Sw abon 01-27-2024 Chlamydia Dna(Pcr) Not detected [facility] Gonorrhoeae Dna(Pcr) Not detected [facility] HIV 1&2 AB/AG Screen (P24 AG )on 01-27-2024 HIV 1&2 AB/AG Non-Reactive [facility] Hepatitis B surface antigeno n 01-27-2024 Hepatitis B Surface Antigen Negative [facility] Hepatitis C(HCV) Ab w/ Refle x to PCRon 01-27-2024 HCV Ab Ql (S) non reacitve [facility] No Panel Informationon 01-[address] [facility] Rubella IGG immune statuson 01-27-2024 Rubella immune IgG 9.62 [facility] Syphilis Total(Unknown Syphi lis Status)on 01-27-2024 Syphilis Non-Reactive [facility] Type and screenon 01-27-2024 Abo/Rh(D) Positive [facility] LIPID PROFILEon 03-29-2022 CHOL-HDL RATIO NORM SEE BELOW Normal [facility] Comment on above: Result Comment: 3.3 - 4.4 LOW RISK 4.4 - 7.1 AVERAGE RISK 7.1 - 11.0 MODERATE RISK >11.0 HIGH RISK Performed By: #### L IPID #### [facility] [address] [address] [address] Parth Lucero Cholesterol [Mass/Vol] 197 mg/dL Normal <=200 [facility] Comment on above: Performed By: #### L IPID #### [facility] [address] [address] [address] Parth Lucero Cholesterol in HDL [Mass/Vol] 66 mg/dL Critically high 40-60 [facility] Comment on above: Performed By: #### L IPID #### [facility] [address] [address] [address] Parth Lucero Cholesterol in LDL [Mass/Vol] 120.0 mg/dL Normal [facility] Comment on above: Performed By: #### L IPID #### [facility] [address] [address] [address] Parth Lucero Cholesterol.total/Ch olesterol in HDL [Mass ratio] 3.0 {ratio} Normal [facility] Comment on above: Performed By: #### L IPID #### [facility] [address] [address] [address] Parth Lucero HDL NORMAL > or = 60 mg/dl - LO W CARDIOVASCULAR RISK <40 mg/dl - HIGH CARDIOVASCULAR RISK Normal [facility] Comment on above: Performed By: #### L IPID #### [facility] [address] [place] [address] Dr. Parth Lucero LDL CALC NORMAL SEE BELOW Normal [facility] Comment on above: Result Comment: <100 mg/dl OPTIMAL 100 - 129 mg/dl NEAR OR ABOVE OPTIMAL 130 - 159 mg/dl BORDERLINE HIGH 160 - 189 mg/dl HIGH >190 mg/dl VERY HIGH Performed By: #### L IPID #### [facility] [address] [place] [address] Dr. Parth Lucero Triglyceride [Mass/Vol] 55 mg/dL Normal <=150 [facility] Comment on above: Performed By: #### L IPID #### [facility] [address] [place] [address] Dr. Parth Lucero VLDL CALC 11.0 mg/dL Normal [facility] Comment on above: Performed By: #### L IPID #### [facility] [address] [place] [address] Dr. Parth Lucero CBC AUTO DIFFon 01-08-2022 BASO # 0.0 103/ul Normal 0.0-0.1 [facility] Comment on above: Performed By: #### [id number] #### [facility] [address] [place] [address] Dr. Parth Lucero Basophils/100 WBC (Bld) 0.3 % Normal 0.2-2.0 [facility] Comment on above: Performed By: #### [id number] #### [facility] [address] [place] [address] Dr. Parth Lucero EO # 0.1 103/ul Normal 0.0-0.7 [facility] Comment on above: Performed By: #### [id number] #### [facility] [address] [place] [address] Dr. Parth Lucero Eosinophils/100 WBC (Bld) 0.4 % Critically low 0.9-7.0 [facility] Comment on above: Performed By: #### [id number] #### [facility] [address] [place] [address] Dr. Parth Lucero Erythrocyte distribution width (RBC) [Ratio] 13.4 % Normal 11.0-15.0 [facility] Comment on above: Performed By: #### [id number] #### [facility] [address] [place] [address] Dr. Parth Lucero Hematocrit (Bld) [Volume fraction] 36.0 % Normal 36.0-48.0 [facility] Comment on above: Performed By: #### [id number] #### [facility] [address] [place] [address] Dr. Parth Lucero Hemoglobin (Bld) [Mass/Vol] 12.1 g/dL Normal 12.0-16.0 [facility] Comment on above: Performed By: #### [id number] #### [facility] [address] [place] [address] Dr. Parth Lucero IG # 0.10 10e3/ul Critically high 0.00-0.03 [facility] Comment on above: Performed By: #### [id number] #### [facility] [address] [place] [address] Dr. Parth Lucero IG % 0.7 % Critically high 0.0-0.5 [facility] Comment on above: Performed By: #### [id number] #### [facility] [address] [place] [address] Dr. Parth Lucero LYMPH # 2.1 103/ul Normal 1.2-3.8 [facility] Comment on above: Performed By: #### [id number] #### [facility] [address] [place] [address] Dr. Parth Lucero Lymphocytes/100 WBC (Bld) 14.0 % Critically low 20.5-60.0 [facility] Comment on above: Performed By: #### [id number] #### [facility] [address] [place] [address] Dr. Parth Lucero MANUAL DIFF REQ NO Normal [facility] Comment on above: Performed By: #### [id number] #### [facility] [address] [place] [address] Dr. Parth Lucero MCH (RBC) [Entitic mass] 31.0 pg Normal 26.7-34.0 [facility] Comment on above: Performed By: #### [id number] #### [facility] [address] [place] [address] Dr. Parth Lucero MCHC (RBC) [Mass/Vol] 33.6 g/dL Normal 29.9-35.2 [facility] Comment on above: Performed By: #### [id number] #### [facility] [address] [place] [address] Dr. Parth Lucero MCV (RBC) [Entitic vol] 92.3 fL Normal 81.0-99.0 [facility] Comment on above: Performed By: #### [id number] #### [facility] [address] [place] [address] Dr. Parth Lucero MONO # 1.2 103/ul Critically high 0.3-0.8 [facility] Comment on above: Performed By: #### [id number] #### [facility] [address] [place] [address] Dr. Parth Lucero Monocytes/100 WBC (Bld) 7.7 % Normal 1.7-12.0 [facility] Comment on above: Performed By: #### [id number] #### [facility] [address] [place] [address] Dr. Parth Lucero NEUT # 11.7 103/ul Critically high 1.4-6.5 [facility] Comment on above: Performed By: #### 4 [id number] #### [facility] [address] [place] [address] Dr. Parth Lucero Neutrophils/100 WBC (Bld) 76.9 % Critically high 43.0-75.0 [facility] Comment on above: Performed By: #### [id number] #### [facility] [address] [place] [address] Dr. Parth Lucero Platelet mean volume (Bld) [Entitic vol] 10.0 fL Normal 9.5-13.5 [facility] Comment on above: Performed By: #### [id number] #### [facility] [address] [address] [address] Parth Lucero PLT 231 103/ul Normal 150-450 [facility] Comment on above: Performed By: #### 4 [id number] #### [facility] [address] [place] [address] Dr. Parth Lucero RBC 3.90 106/ul Critically low 4.20-5.40 [facility] Comment on above: Performed By: #### [id number] #### [facility] [address] [place] [address] Dr. Parth Lucero WBC 15.2 103/ul Critically high 4.0-11.[address] [facility] Comment on above: Performed By: #### [id number] #### [facility] [address] [place] [address] Dr. Parth Lucero CBC AUTO DIFFon 01-07-2022 BASO # 0.0 103/ul Normal 0.0-0.1 [facility] Comment on above: Performed By: #### C BC #### [facility] [address] [place] [address] Dr. Parth Lucero Basophils/100 WBC (Bld) 0.4 % Normal 0.2-2.0 [facility] Comment on above: Performed By: #### C BC #### [facility] [address] [place] [address] Dr. Parth Lucero EO # 0.1 103/ul Normal 0.0-0.7 [facility] Comment on above: Performed By: #### C BC #### [facility] [address] [place] [address] Dr. Parth Lucero Eosinophils/100 WBC (Bld) 1.1 % Normal 0.9-7.0 [facility] Comment on above: Performed By: #### C BC #### [facility] [address] [place] [address] Dr. Parth Lucero Erythrocyte distribution width (RBC) [Ratio] 13.3 % Normal 11.0-15.0 [facility] Comment on above: Performed By: #### C BC #### [facility] [address] [address] [address] Parth Lucero Hematocrit (Bld) [Volume fraction] 39.2 % Normal 36.0-48.0 [facility] Comment on above: Performed By: #### C BC #### [facility] [address] [address] [address] Parth Lucero Hemoglobin (Bld) [Mass/Vol] 13.3 g/dL Normal 12.0-16.0 [facility] Comment on above: Performed By: #### C BC #### [facility] [address] [place] [address] Dr. Parth Lucero IG # 0.10 10e3/ul Critically high 0.00-0.03 [facility] Comment on above: Performed By: #### C BC #### [facility] [address] [place] [address] Dr. Parth Lucero IG % 1.0 % Critically high 0.0-0.5 [facility] Comment on above: Performed By: #### C BC #### [facility] [address] [address] [address] Parth Lucero LYMPH # 1.8 103/ul Normal 1.2-3.8 [facility] Comment on above: Performed By: #### C BC #### [facility] [address] [place] [address] Dr. Parth Lucero Lymphocytes/100 WBC (Bld) 18.0 % Critically low 20.5-60.0 [facility] Comment on above: Performed By: #### C BC #### [facility] [address] [place] [address] Dr. Parth Lucero MANUAL DIFF REQ NO Normal [facility] Comment on above: Performed By: #### C BC #### [facility] [address] [place] [address] Dr. Parth Lucero MCH (RBC) [Entitic mass] 31.1 pg Normal 26.7-34.0 [facility] Comment on above: Performed By: #### C BC #### [facility] [address] [address] [address] Parth Lucero MCHC (RBC) [Mass/Vol] 33.9 g/dL Normal 29.9-35.2 [facility] Comment on above: Performed By: #### C BC #### [facility] [address] [address] [address] Parth Lucero MCV (RBC) [Entitic vol] 91.8 fL Normal 81.0-99.0 [facility] Comment on above: Performed By: #### C BC #### [facility] [address] [address] [address] Parth Lucero MONO # 1.1 103/ul Critically high 0.3-0.8 [facility] Comment on above: Performed By: #### C BC #### [facility] [address] [place] [address] Dr. Parth Lucero Monocytes/100 WBC (Bld) 11.3 % Normal 1.7-12.0 [facility] Comment on above: Performed By: #### C BC #### [facility] [address] [place] [address] Dr. Parth Lucero NEUT # 6.9 103/ul Critically high 1.4-6.5 [facility] Comment on above: Performed By: #### C BC #### [facility] [address] [place] [address] Dr. Parth Lucero Neutrophils/100 WBC (Bld) 68.2 % Normal 43.0-75.0 [facility] Comment on above: Performed By: #### C BC #### [facility] [address] [address] [address] Parth Lucero Platelet mean volume (Bld) [Entitic vol] 10.6 fL Normal 9.5-13.5 [facility] Comment on above: Performed By: #### C BC #### [facility] [address] [place] [address] Dr. Parth Lucero PLT 258 103/ul Normal 150-450 [facility] Comment on above: Performed By: #### C BC #### [facility] [address] [place] [address] Dr. Parth Lucero RBC 4.27 106/ul Normal 4.20-5.40 [facility] Comment on above: Performed By: #### C BC #### [facility] [address] [place], [place] [id number] Dr. Parth Lucero WBC 10.1 103/ul Normal 4.0-11.0 [facility] Comment on above: Performed By: #### C BC #### [facility] [address] [place] [address] Dr. Parth Lucero Covid-19 PCR ([facility])on 12-19 SARS-CoV-2 (COVID-19) RNA RIGOBERTO+probe Ql (Unsp spec) Not detected Normal NOT DETECTED [facility] Comment on above: Result Comment: When [...] for this test is supported by the Pigment Processor of Health and Human Service's declaration that [...] longer be used). Performed By: #### [id number] #### [facility] [address] [place] [address] Dr. Parth Lucero DRUG SCREEN RAPID (URINE)on 01-07-2022 AMP Negative Normal NEGATIVE [facility] Comment on above: Performed By: #### L IPID #### [facility] [address] [place] [address] Dr. Parth Lucero BAR Negative Normal NEGATIVE [facility] Comment on above: Performed By: #### L IPID #### [facility] [address] [place] [address] Dr. Parth Lucero BUP Negative Normal NEGATIVE [facility] Comment on above: Performed By: #### L IPID #### [facility] [address] [place] [address] Dr. Parth Lucero BZO Negative Normal NEGATIVE [facility] Comment on above: Performed By: #### L IPID #### [facility] [address] [place] [address] Dr. Parth Lucero AMINTA Negative Normal NEGATIVE [facility] Comment on above: Performed By: #### L IPID #### [facility] [address] [place] [address] Dr. Parth Lucero CUT-OFFS SEE BELOW Normal [facility] Comment on above: Result Comment: AMP (Amphetamine): 500ng/mL, BAR (Barbituates): 200 ng/mL, BZO (Benzodiazepines): 150 ng/mL, BUP (Buprenorphine): 10 ng/mL, AMINTA (Cocaine): 150 ng/mL, mAMP (Methamphetamine): 500 ng/mL, MTD (Methadone): 200 ng/mL, OPI (Opiates): 100 ng/mL, OXY (Oxycodone): 100 ng/mL, PCP (Phencyclidine): 25 ng/mL, PPX (Propoxyphene): 300 ng/mL, THC (Cannabinoids): 50 ng/mL, TCA (Trycyclic Antidepressants): 300 ng/mL Performed By: #### L IPID #### [facility] [address] [place] [address] Dr. Parth Lucero DRUG CUT HEADER DRUG CLASS TEST SYSTEM CUT-OFF CONCENTRATIONS ARE FOLLOWS: Normal [facility] Comment on above: Performed By: #### L IPID #### [facility] [address] [place] [address] Dr. Parth Lucero mAMP Negative Normal NEGATIVE [facility] Comment on above: Performed By: #### L IPID #### [facility] [address] [place] [address] Dr. Parth Lucero MTD Negative Normal NEGATIVE [facility] Comment on above: Performed By: #### L IPID #### [facility] [address] [address] [address] Parth Lucero OPI Negative Normal NEGATIVE [facility] Comment on above: Performed By: #### L IPID #### [facility] [address] [address] [address] Parth Lucero OXY Negative Normal NEGATIVE [facility] Comment on above: Performed By: #### L IPID #### [facility] [address] [address] [address] Parth Lucero PCP Negative Normal NEGATIVE [facility] Comment on above: Performed By: #### L IPID #### [facility] [address] [place] [address] Dr. Parth Lucero PPX Negative Normal NEGATIVE [facility] Comment on above: Performed By: #### L IPID #### [facility] [address] [place] [address] Dr. Parth Lucero TCA Negative Normal NEGATIVE [facility] Comment on above: Performed By: #### L IPID #### [facility] [facility] [address] [place] [address] Dr. Parth Lucero THC Negative Normal NEGATIVE [facility] Comment on above: Performed By: #### L IPID #### [facility] [address] [place] [address] Dr. Parth Lucero TYPE AND SCREENon 01-07-2022 TYPE AND SCREEN Negative Normal [facility] Comment on above: Performed By: #### T NS #### [facility] [address] [place] [address] Dr. Parth Lucero GROUP B STREP CULTUREon 11-19 S. agalactiae Ag Ql (Unsp spec) Culture Observations: NEGATIVE FOR GROUP B STREPTOCOCCUS. Normal [facility] Comment on above: Performed By: #### [id number] #### [facility] [address] [place] [address] Dr. Parth Lucero GTT 3 HR PREGon 2021 Glucose [Mass/Vol] 93 mg/dL Normal 74-106 [facility] Comment on above: Performed By: #### G TT3P #### [facility] [address] [place] [address] Dr. Parth Lucero Glucose [Mass/Vol] 173 mg/dL Normal [facility] Comment on above: Performed By: #### G TT3P #### [facility] [address] [place] [address] Dr. Parth Lucero Glucose [Mass/Vol] 149 mg/dL Normal [facility] Comment on above: Performed By: #### G TT3P #### [facility] [address] [place] [address] Dr. Parth Lucero Glucose [Mass/Vol] 128 mg/dL Normal [facility] Comment on above: Performed By: #### G TT3P #### [facility] [address] [place] [address] Dr. Parth Lucero GLUCOSE - 1HRon 10-09-2021 Glucose [Mass/Vol] 150 mg/dL Critically high 74-106 [facility] Comment on above: Performed By: #### G [id number] #### [facility] [address] [place] [address] Dr. Parth Lucero HEMOGRAM AND PLATELon 2021 Hematocrit (Bld) [Volume fraction] 37.6 % Normal 36.0-48.0 [facility] Comment on above: Performed By: #### H H #### [facility] [address] [place] [address] Dr. Parth Lucero Hemoglobin (Bld) [Mass/Vol] 12.3 g/dL Normal 12.0-16.0 [facility] Comment on above: Performed By: #### H H #### [facility] [address] [place] [address] Dr. Parth Lucero MCH (RBC) [Entitic mass] 31.2 pg Normal 26.7-34.0 [facility] Comment on above: Performed By: #### H H #### [facility] [address] [place] [address] Dr. Parth Lucero MCHC (RBC) [Mass/Vol] 32.7 g/dL Normal 29.9-35.2 [facility] Comment on above: Performed By: #### H H #### [facility] [address] [address] [address] Parth Lucero MCV (RBC) [Entitic vol] 95.4 fL Normal 81.0-99.0 [facility] Comment on above: Performed By: #### H H #### [facility] [address] [address] [address] Parth Lucero PLT 240 103/ul Normal 150-450 [facility] Comment on above: Performed By: #### H H #### [facility] [address] [address] [address] Parth Lucero RBC 3.94 106/ul Critically low 4.20-5.40 [facility] Comment on above: Performed By: #### H H #### [facility] [address] [place] [address] Dr. Parth Lucero WBC 9.7 103/ul Normal 4.0-11.0 [facility] Comment on above: Performed By: #### H H #### [facility] [address] [place] [address] Dr. Parth Lucero PAP ACOG PANEL 2: 21 to 29on 09-02-2021 . . Normal [facility] Comment on above: Performed By: #### [id number] #### [facility] [address] [place] [address] Dr. Parth Lucero Age Gdln ACOG Testing - Normal [facility] Comment on above: Performed By: #### [id number] #### [facility] [address] [place] [address] Dr. Parth Lucero DIAGNOSIS: Comment Normal [facility] Comment on above: Result Comment: NEGA TIVE FOR INTRAEPITHELIAL LESION OR MALIGNANCY. Performed By: #### [id number] #### [facility] [address] [place] [address] Dr. Parth Lucero Methodology: Comment Normal [facility] Comment on above: Result Comment: This liquid based ThinPrep(R) pap test was screened with the use of an image guided system. Performed By: #### [id number] #### [facility] [address] [place] [address] Dr. Parth Lucero Note: Comment Normal [facility] Comment on above: Result Comment: The Pap smear is a screening test designed to aid in the detection of premalignant and malignant conditions of the uterine cervix. It is not a diagnostic procedure and should not be used as the sole means of detecting cervical cancer. Both false-positive and false-negative reports do occur. . Performed By: #### 4 [id number] #### [facility] [address] [place] [address] Dr. Parth Lucero Performed by: Comment Normal [facility] Comment on above: Result Comment: Vivian Paris, Hand Pattern Marker (ASCP) Performed By: #### [id number] #### [facility] [address] [place] [address] Dr. Parth Lucero Reflex Criteria: Comment Normal [facility] Comment on above: Result Comment: The HPV DNA reflex criteria were not met with this specimen result therefore, no HPV testing was performed. . Performed By: #### [id number] #### [facility] [address] [place] [address] Dr. Parth Lucero Specimen adequacy: Comment Normal [facility] Comment on above: Result Comment: Sati sfactory for evaluation. No endocervical component is identified. Performed By: #### [id number] #### [facility] [address] [place] [address] Dr. Parth Lucero US PREG ANATOMY SINGLEon [...] by ultrasound, 56% by expected EDC; FL/AC: 0.860135 FL/BPD: 0.747225 HC/AC: 1.248876 GESTATIONAL AGE: Age by EDC: 21 weeks 0 days ARMANI by EDC: 01/12/2022 Age by current US: 20 weeks 1 day ARMANI by current US: 01/11/2022 IMPRESSION: Normal anatomy scan *Reference: AIUM Practice Guideline for the performance of Obstetric Ultrasound Examinations, March 20, 2007. Electronically authenticated by: ALONSO SANDERS Date: 2021-09-01 16:20 Normal [facility] CHLAMYDIA/GONOCOCCUS RIGOBERTO (SW AB/URINE/PAPon 08-29-2021 Chlamydia trachomatis, RIGOBERTO Negative Normal Negative [facility] Comment on above: Performed By: #### L IPID #### [facility] [address] [place] [address] Dr. Parth Lucero Neisseria gonorrhoeae, RIGOBERTO Negative Normal Negative [facility] Comment on above: Performed By: #### L IPID #### [facility] [address] [place] [address] Dr. Parth Lucero AFP MATERNAL FOR SPINA BIFID Aon 08-18-2021 AFP MoM 1.13 Normal [facility] Comment on above: Performed By: #### [id number] #### [facility] [address] [address] [address] Parth Lucero AFP Value 52.2 ng/mL Normal [facility] Comment on above: Performed By: #### 4 [id number] #### [facility] [address] [address] [address] Parth Lucero AFP, Serum for Spina Bifida Report Normal [facility] Comment on above: Performed By: #### [id number] #### [facility] [address] [address] [address] Parth Lucero Comment Comment Normal [facility] Comment on above: Result Comment: Ruth Viveros, Ph.D., [facility] Director . References: Available Upon Request. . Multiples Of Median Cutoffs For AFP Elevations Ricardo 2.5 Black 2.8 IDD 2.0 Twins 4.5 Abbreviation Definitions IDD - Insulin Dep Diabetes OSBR - Open Spina Bifida Risk . For further inquiries contact [facility] at [phone]. Performed By: #### [id number] #### [facility] [address] [place] [address] Dr. Parth Lucero Gest Age Collection Date 18.0 weeks [facility] Comment on above: Performed By: #### [id number] #### [facility] [address] [place] [address] Dr. Parth Lucero Gestat, Age Based on LMP Normal [facility] Comment on above: Result Comment: Reca lculations are not recommended when gestational dating by LMP and ultrasound are within 10 days. Performed By: #### [id number] #### [facility] [address] [place] [address] Dr. Parth Lucero Insulin Dep Diabetes No Normal [facility] Comment on above: Performed By: #### [id number] #### [facility] [address] [place] [address] Dr. Parth Lucero Interpretation Comment Normal [facility] Comment on above: Result Comment: Inte [...] Customer Services to discuss available options. The [employer] recommends amniocentesis be offered to women age 35 and older. Performed By: #### 4 [id number] #### [facility] [address] [place] [address] Dr. Parth Lucero [age] Normal [facility] Comment on above: Performed By: #### 4 [id number] #### [facility] [address] [place] [address] Dr. Parth Lucero Multiple Gestation No Normal [facility] Comment on above: Performed By: #### [id number] #### [facility] [address] [place] [address] Dr. Parth Lucero OSBR Risk 1 [place] 8106 Normal [facility] Comment on above: Performed By: #### 4 [id number] #### [facility] [address] [place] [address] Dr. Parth Lucero PDF . Normal [facility] Comment on above: Result Comment: This test was developed and its performance characteristics determined by [employer]. It has not been cleared or approved by the Food and Drug Administration. Performed By: #### 4 [id number] #### [facility] [address] [place] [address] Dr. Parth Lucero Race Normal [facility] Comment on above: Performed By: #### [id number] #### [facility] [address] [place] [address] Dr. Parth Lucero Test Results: Negative Normal [facility] Comment on above: Performed By: #### [id number] #### [facility] [address] [place] [address] Dr. Parth Lucero HEP B SURFACE ANTIGEN SCREEN on 06-25-2021 HBsAg Screen Negative Normal Negative [facility] Comment on above: Performed By: #### H BSANS #### [facility] [address] [place] [address] Dr. Parth Lucero HEPATITIS C VIRUS AB W/ REFL EX QUANTon 06-25-2021 HCV AB <0.1 Normal 0.0-0.9 [facility] Comment on above: Performed By: #### 4 [id number] #### [facility] [address] [place] [address] Dr. Parth Lucero Interpretation: Comment Normal [facility] Comment on above: Result Comment: Nega tive Not infected with HCV, unless recent infection is suspected or other evidence exists to indicate HCV infection. Performed By: #### 4 [id number] #### [facility] [address] [place] [address] Dr. Parth Lucero HIV 1 AND 2 WITH REFLEXon HIV Screen 4th Generation wRfx Non-Reactive Normal Non Reactive [facility] Comment on above: Performed By: #### L IPID #### [facility] [address] [place] [address] Dr. Parth Lucero RPR QUANTon 06-25-2021 Rapid Plasma Reagin, Quant Non-Reactive Normal NonRea<1:1 [facility] Comment on above: Performed By: #### L IPID #### [facility] [address] [place] [address] Dr. Parth Lucero RUBELLA AB IGGon 06-25-2021 Rubella Antibodies, IgG 13.00 index Normal Immune >0.99 [facility] Comment on above: Result Comment: Non- immune <0.90 Equivocal 0.90 - 0.99 Immune >0.99 Performed By: #### [id number] #### [facility] [address] [place] [address] Dr. Parth Lucero CBC AUTO DIFFon 06-23-2021 BASO # 0.0 103/ul Normal 0.0-0.1 [facility] Comment on above: Performed By: #### L IPID #### [facility] [address] [place] [address] Dr. Parth Lucero Basophils/100 WBC (Bld) 0.3 % Normal 0.2-2.0 [facility] Comment on above: Performed By: #### L IPID #### [facility] [address] [place] [address] Dr. Parth Lucero EO # 0.1 103/ul Normal 0.0-0.7 [facility] Comment on above: Performed By: #### L IPID #### [facility] [address] [place] [address] Dr. Parth Lucero Eosinophils/100 WBC (Bld) 1.1 % Normal 0.9-7.0 [facility] Comment on above: Performed By: #### L IPID #### [facility] [address] [place] [address] Dr. Parth Lucero Erythrocyte distribution width (RBC) [Ratio] 12.7 % Normal 11.0-15.0 [facility] Comment on above: Performed By: #### L IPID #### [facility] [address] [place] [address] Dr. Parth Lucero Hematocrit (Bld) [Volume fraction] 38.2 % Normal 36.0-48.0 [facility] Comment on above: Performed By: #### L IPID #### [facility] [address] [place] [address] Dr. Parth Lucero Hemoglobin (Bld) [Mass/Vol] 13.0 g/dL Normal 12.0-16.0 [facility] Comment on above: Performed By: #### L IPID #### [facility] [address] [place] [address] Dr. Parth Lucero IG # 0.04 10e3/ul Critically high 0.00-0.03 [facility] Comment on above: Performed By: #### L IPID #### [facility] [address] [place] [address] Dr. Parth Lucero IG % 0.4 % Normal 0.0-0.5 [facility] Comment on above: Performed By: #### L IPID #### [facility] [address] [place] [address] Dr. Parth Lucero LYMPH # 2.3 103/ul Normal 1.2-3.8 [facility] Comment on above: Performed By: #### L IPID #### [facility] [address] [place] [address] Dr. Parth Lucero Lymphocytes/100 WBC (Bld) 23.8 % Normal 20.5-60.0 [facility] Comment on above: Performed By: #### L IPID #### [facility] [address] [place] [address] Dr. Parth Lucero MANUAL DIFF REQ NO Normal [facility] Comment on above: Performed By: #### L IPID #### [facility] [address] [place] [address] Dr. Parth Lucero MCH (RBC) [Entitic mass] 31.6 pg Normal 26.7-34.0 [facility] Comment on above: Performed By: #### L IPID #### [facility] [address] [place] [address] Dr. Parth Lucero MCHC (RBC) [Mass/Vol] 34.0 g/dL Normal 29.9-35.2 [facility] Comment on above: Performed By: #### L IPID #### [facility] [address] [place] [address] Dr. Parth Lucero MCV (RBC) [Entitic vol] 92.9 fL Normal 81.0-99.0 [facility] Comment on above: Performed By: #### L IPID #### [facility] [address] [place] [address] Dr. Parth Lucero MONO # 0.8 103/ul Normal 0.3-0.8 [facility] Comment on above: Performed By: #### L IPID #### [facility] [address] [place] [address] Dr. Parth Lucero Monocytes/100 WBC (Bld) 7.6 % Normal 1.7-12.0 [facility] Comment on above: Performed By: #### L IPID #### [facility] [address] [place] [address] Dr. Parth Lucero NEUT # 6.6 103/ul Critically high 1.4-6.5 [facility] Comment on above: Performed By: #### L IPID #### [facility] [address] [place] [address] Dr. Parth Lucero Neutrophils/100 WBC (Bld) 66.8 % Normal 43.0-75.0 [facility] Comment on above: Performed By: #### L IPID #### [facility] [address] [address] [address] Parth Lucero Platelet mean volume (Bld) [Entitic vol] 9.4 fL Critically low 9.5-13.5 [facility] Comment on above: Performed By: #### L IPID #### [facility] [address] [address] [address] Parth Lucero PLT 320 103/ul Normal 150-450 [facility] Comment on above: Performed By: #### L IPID #### [facility] [address] [address] [address] Parth Lucero RBC 4.11 106/ul Critically low 4.20-5.40 [facility] Comment on above: Performed By: #### L IPID #### [facility] [address] [address] [address] Parth Lucero WBC 9.8 103/ul Normal 4.0-11.0 [facility] Comment on above: Performed By: #### L IPID #### [facility] [address] [address] [address] Parth Lucero CULTURE URINEon 06-23-2021 CULTURE URINE Culture Observations : MODERATE GROWTH OF MIXED GENITAL BERNARDINO. NO POTENTIAL PATHOGENS SEEN. Normal [facility] Comment on above: Performed By: #### U RCX #### [facility] [address] [address] [address] Parth Lucero GLYCOHEMOGLOBIN A1Con 2021 ADA RECOMMENDATION ADA THERAPEUTIC TARGET 6.0 - 7.0 ACTION SUGGESTED > 7.0 Normal [facility] Comment on above: Performed By: #### A 1C #### [facility] [address] [address] [address] Parth Lucero Glucose [Mass/Vol] 105 mg/dL Normal [facility] Comment on above: Performed By: #### A 1C #### [facility] [address] [place] [address] Dr. Parth Lucero HbA1c (Bld) [Mass fraction] 5.3 % Normal <=6.0 [facility] Comment on above: Performed By: #### A 1C #### [facility] [address] [place] [address] Dr. Parth Lucero TAYLA BOX TEST PT SEND OUTo n 06-23-2021 SENT TO REF LAB 06/23/2021 Normal [facility] Comment on above: Performed By: #### [id number] #### [facility] [address] [place] [address] Dr. Parth Lucero TYPE AND SCREENon 06-23-2021 TYPE AND SCREEN Negative Normal [facility] Comment on above: Performed By: #### [id number] #### [facility] [address] [place] [address] Dr. Parth Lucero US PREG TVon 06-15-2021 [...] by: ALONSO SANDERS Date: 2021-06-15 09:44 Normal [facility] Auth for Release of Medical Records 06-05-2021 Auth for Release of Medical Records [id number] [id number] Normal [facility] Vital Signs Date Time Vital Sign Value Performing Clinician Facility 04-16-2024 14: Body height 160 cm Jeet [facility] 04-16-2024 14:18040 Body mass index (BMI) [Ratio] 26.39 kg/m2 Jeet Tavares MD [facility] 04-16-2024 14:18 Body weight 67.59 kg Jeet Tavares MD Work Phone: [facility] 04-16-2024 14:18-0400 Diastolic blood pressure 78 mm[Hg] Jeet Tavares MD Work Phone: [facility] 04-16-2024 14:18-0400 Heart rate 102 /min Jeet Tavares MD Work Phone: [facility] 04-16-2024 14:18-0400 Systolic blood pressure 133 mm[Hg] Jeet Tavares MD Work Phone: [facility] 04-03-2024 14:57-0400 Body mass index (BMI) [Ratio] 25.4 kg/m2 Jorge Luis Katrin DO Work Phone: [facility] 04-03-2024 14:57-0400 Body weight 67.13 kg Jorge Luis Katrin DO Work Phone: [facility] 04-03-2024 14:57-0400 Diastolic blood pressure 64 mm[Hg] Jorge Luis Katrin DO Work Phone: [facility] 04-03-2024 14:57-0400 Systolic blood pressure 100 mm[Hg] Jorge Luis Katrin DO Work Phone: [facility] 08-18-2021 18:08-0500 Body weight 63.[address] RODNEY CAPUTO [facility] Comment on above: Performed By: #### [id number] #### [facility] [address] [place] [address] Dr. Parth Lucero Encounters Encounter Date Encounter Type Care Provider Facility Start: 04-28-2024 End: 04-28-2024 Clinisync Result Encounter Jorge Luis Katrin DO Work Phone: [facility] External Department Unsolicited Start: 04-28-2024 End: 04-28-2024 Clinisync Result Encounter Jorge Luis Katrin DO Work Phone: [facility] External Department Unsolicited Start: 04-16-2024 End: 04-16-2024 Office outpatient new 45 minutes Jeet Tavares MD Work Phone: [facility] Comment on above: Echogenic focus of h eart of fetus affecting antepartum care of mother, single or unspecified fetus (Primary Dx); Low lying placenta, antepartum; Suspected condition not found; Family history of congenital heart defect; 23 weeks gestation of Start: 04-16-2024 End: 04-16-2024 ambulatory [facility] Start: 04-11-2024 End: 04-11-2024 Chart abstracting Jeet Tavares MD Work Phone: [facility] Start: 04-03-2024 End: 04-03-2024 flow sheet Jorge [...] Available Start: 11-16-2023 End: 11-16-2023 ambulatory EMILY Grimaldo DOLCE Not Available Start: 10-26-2023 End: 10-26-2023 ambulatory EMILY Grimaldo DOLCE Not Available Start: 10-12-2023 End: 10-12-2023 ambulatory EMILY Dillan DOLCE Not Available Start: 06-28-2023 End: 06-28-2023 [...] (routine) without abnormal findings DR RODNEY CAPUTO [facility] Start: 08-26-2021 End: 08-26-[address] RODNEY CAPUTO Facility:[facility] Start: 08-26-2021 End: 08-26-2021 Encounter for gynecological examination (general) (routine) without abnormal findings DR RODNEY CAPUTO Facility:[facility] Start: 08-11-2021 End: 08-12-[address] RODNEY CAPUTO Facility:[facility] Start: 06-23-2021 End: 06-24-[address] RODNEY CAPUTO Facility:[facility] Start: 06-15-2021 End: 06-16-[address] RODNEY CAPUTO Facility:[facility] Procedures Date Procedure Procedure Detail Performing Clinician Start: 04-28-2024 ALL CBC WITH AUTO DIFF Jorge Luis Katrin DO Work Phone: Start: 04-03-2024 Urnls dip stick/tabl et rgnt non-auto w/o micrscp Jogre Luis Katrin DO Work Phone: Start: 03-28-2024 AFP, SERUM, [...] Adult BMI Screening Adult BMI Screen ing [facility] Start: 04-16-2025 Tobacco Screening Tobacco Screening [facility] Start: 05-15-2024 End: 05-15-2024 Patient encounter procedure 05/15/2024 10:15 AM EST Appointment [facility] - Ultrasound [address] [place] [address] [facility] [facility] Start: 05-07-2024 End: 05-07-2024 Patient encounter procedure 05/07/2024 4:00 PM EST Routine [facility] [address] [place] [id number] Bibiana Alcantara PA [address] [place] [address] [facility] Start: 04-16-2024 End: 04-16-2025 [...] End: 04-16-2024 Patient encounter procedure [facility] Start: 04-04-2024 End: 04-04-2024 Patient encounter procedure 04/04/2024 3:10 PM EDT Routine [facility] [address] [place] [address] Jorge Luis Wilkes, DO [address] [place] [address] [facility] Start: 04-03-2024 End: 04-03-2024 Patient encounter procedure 04/03/2024 2:20 PM EDT Routine [facility] [address] [place] [address] Jorge Luis Wilkes, DO [address] [place] [address] Arrived [facility] Comment on above: Arrived Start: 04-03-2024 End: 04-03-2025 CBC panel - Blood by Automated count CBC Lab Routine Diabetes mellitus screening Expected: 04/03/2024 (Approximate), Expires: 04/03/2025 [facility] Comment on above: Expected: 04/03/2024 (Approximate), Expires: 04/03/2025 Start: 04-03-2024 End: 04-03-2025 Measurement of glucose 1 hour after glucose challenge for glucose tolerance test Glucose tolerance, 1 hour Lab Routine Diabetes mellitus screening Expected: 04/03/2024 (Approximate), Expires: 04/03/2025 [facility] Comment on above: Expected: 04/03/2024 (Approximate), Expires: 04/03/2025 Start: 04-03-2024 End: 04-03-2025 US for US OB INCOMPLETE ANATOMY Imaging Routine Encounter for follow-up ultrasound of anatomy Expected: 04/03/2024 (Approximate), Expires: 04/03/2025 [facility] Work Phone: Comment on above: Expected: 04/03/2024 (Approximate), Expires: 04/03/2025 Start: 02-19-2024 Influenza vaccination Influenza Vacc ine [facility] Start: 10-15-2012 Screening for malign ant neoplasm of cervix Pap Smear [facility] Start: 10-15-2010 DTaP,Tdap and Td Vaccines (1 - Tdap) DTaP,Tdap and Td Vaccines (1 - Tdap) [facility] Start: 10-15-2009 Adult BMI Follow Up Plan Adult BMI Follow Up Plan [facility] Start: 10-15-2009 Adult BMI Screening Adult BMI Screen ing [facility] Start: 2003 Depression Screening Depression Scre ening [facility] Start: 2003 Tobacco Screening Tobacco Screening [facility] Payers Date Payer Category Payer Private Health Insurance [employer] [id number] 2017 Unknown [employer] [id number] 2017-Present [address] [place] [address] [id number]. [id number] 1991 Unknown [id number] 2.16.840.1.007412.3.579.2. 593 1991 Unknown [id number] 2.16.840.1.752385.3.579.2. 593 1991 Unknown [id number] 2.16.840.1.094368.3.579.2. 593 1991 Unknown [id number] 2.16.840.1.220587.3.579.2. 593 1991 Unknown [id number] 2.16.840.1.965616.3.579.2. 593 1991 Unknown [id number] 2.16.840.1.013238.3.579.2. 593 1991 Unknown [id number] 2.16.840.1.435701.3.579.2. 593 1991 Unknown [id number] 2.16.840.1.891177.3.579.2. 593 1991 Unknown [id number] 2.16.840.1.644673.3.579.2. 593 1991 Unknown [id number] 2.16.840.1.967500.3.579.2. 593 1991 Unknown [id number] 2.16.840.1.886488.3.579.2. 593 1991 Unknown [id number] 2.16.840.1.198631.3.579.2. 593 1991 Unknown [id number] 2.16.840.1.216093.3.579.2. 593 1991 Unknown [id number] 2.16.840.1.169899.3.579.2. 593 1991 Unknown [id number] 2.16.840.1.188026.3.579.2. 593 1991 Unknown [id number] 2.16.840.1.694092.3.579.2. 1258 1991 Unknown [id number] 2.16.840.1.848930.3.579.2. 1258 1991 Unknown [id number] 2.16.840.1.258846.3.579.2. 1258 1991 Unknown [id number] 2.16.840.1.213841.3.579.2. 1258 1991 Unknown [id number] 2.16.840.1.473572.3.579.2. 1258 1991 Unknown [id number] 2.16.840.1.921044.3.579.2. 1258 1991 Unknown [id number] 2.16.840.1.234535.3.579.2. 1258 1991 Unknown [id number] 2.16.840.1.465175.3.579.2. 1258 1991 Unknown [id number] 2.16.840.1.132841.3.579.2. 1258 1991 Unknown [id number] 2.16.840.1.520463.3.579.2. 1258 1991 Unknown [id number] 2.16.840.1.624292.3.579.2. 1285 1991 Unknown [id number] 2.16.840.1.154260.3.579.2. 1286 1959 Self-pay 1959 Unknown [id number] [employer] [facility] [employer] [id number] Unknown [id number] 2.16.840.1.857636.3.579.2. 593 Social History Date Type Detail Facility Start: 10-12-2023 End: 04-11-2024 Tobacco smoking status NHIS Never smoked tobacco [facility] Start: 10-12-2023 End: 04-11-2024 Tobacco use and exposure Smokeless tobacco non-user [facility] Start: 02-06-2024 End: 04-03-2024 Alcoholic beverage intake Ex-drinker (finding) [facility] Start: 12-07-2023 End: 02-06-2024 Alcoholic beverage intake [facility] Start: 12-07-2023 End: 04-16-2024 Tobacco use panel [facility] Start: 11-20-2023 [facility] Start: 1990 Sex assigned at Not on file [facility] Start: 04-10-2024 Sex Female (finding) [facility] Within the past 12 [...] Start Date End Date Taking? Authorizing Provider [id number] mg-mcg tablet Take 1 tablet [...] continue with routine care in your office [facility], the CDC, and other organizations representing maternal and public health professionals recommend that , , and lactating people and those considering receive the COVID-19 vaccination. Vaccination is the best method to reduce maternal and complications of SARS-CoV-2 infection. This document was created with [employer] technology. Though I make every effort to review the dictation as it is transcribed, on occasion the spoken word can be misinterpreted by the technology leading to inappropriate words, phrases, or sentences. This note is addressed to the requesting provider as a consultation for clinical guidance. Specific medical abbreviations are occasionally used and those are generally approved by the [place]?Board of?Obstetrics and?Gynecology?as well as?Steve s abbreviations. The above plan of care was based solely on the diagnoses for which a consultation was requested. ?More frequent testing may be indicated based on her other medical/obstetrical conditions. The management of other or medical conditions is beyond the scope of requested consultation and will continue to be followed by the primary music writer or primary care provider. Thank you for [...] procedures Referring and communicating with other health child care supervisor (not separately reported) Documenting clinical information in [...] yes Have you been seen here at [facility] in a previous ? no Recent ER visits or hospitalizations? no Bring blood sugar log or meter with you today? (Please bring them with you for every visit at [facility]) n/a Flu vaccine (Apr-August)? no Any concerns that you would like me to mention to the provider today? no documented in this encounter [facility] History of Present illness Narrative 04-03-2024 Ivanakit Uriarte LPN - 04/03/2024 2:20 PM EDT [...] Name Age of Onset Arthritis Mother Melita [place] Diabetes Mother Melita [place] Rheum arthritis Mother Melita [place] Hypertension Father Bryant [place] SURGICAL HISTORY Past Surgical History: Procedure Laterality [...] nursing note reviewed. Exam conducted with a building services technician present. Vitals: Estimated body mass index is [...] section and content) DATE CREATED AUTHOR 06/06/2021 [facility] DATE CREATED AUTHOR AUTHOR'S ORGANIZ ATION 05/12/2022 [facility] DATE CREATED AUTHOR AUTHOR'S ORGANIZ ATION 04/05/2024 [facility] EPIC DATE CREATED AUTHOR AUTHOR'S ORGANIZ ATION 04/17/2024 [facility] Care Teams (unrecognized sec tion and content) [employer] Machine Operator 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 Specialty Start Date End Date Tamir Fuentes MD [address] [place] [address] PCP - General Family Medicine 10/12/23 Merlene Choe MD [address] [place] [id number] Referring Physician Internal Medicine 10/12/23 [employer] Machine Operator 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 Specialty Start Date End Date Tamir Fuentes MD [address] [place] [address] PCP - General Family Medicine 10/12/23 Merlene Choe MD [address] [place] [address] Referring Physician Internal Medicine 10/12/23 Reason for [...] ON THE PRIMARY CLINICAL RECORDS. [facility] [email or web address] provides no warranty or guarantee of the accuracy or completeness of information in this document.
[2024-05-05 08:27] LABS: Glucose Fasting 86 mg/dL (<95)
[2024-05-05 09:40] LABS: Glucose 1 Hour 181 mg/dL (<180)
[2024-05-05 10:49] LABS: Glucose 2 Hour 135 mg/dL (<155)
[2024-05-05 11:31] LABS: Glucose 3 Hour 125 mg/dL (<140)
== END 2024-05-05 08:03 | disposition home or self-care (01) ==
LOC: LAB 08:02
PROVIDERS: Visit Provider Obstetrics & Gynecology
DX: R73.09 Other abnormal glucose (principal)
CPT/HCPCS: 36415; 82951; 82952

== ENCOUNTER 2024-07-06 09:30 | Outpatient (OUT) | payer OTHER, SELFPAY ==
--- NOTE | 2024-07-06 09:33 | US_ITS ---
[address] [address] Patient Name: JEANNETTE CHOI MRN: [id number] date: 1990 Sex: F Assigned Patient Location: US Current Patient Location: US Accession/Order Number: [id number] Exam Date: 07/06/2024 09:35 Report Date: 07/06/2024 11:23 At the request of: JORGE LUIS BRADSHAW Procedure: US OB growth EXAMINATION: US OB growth HISTORY: Excessive Growth Affecting Management COMPARISON: Ultrasound OB anatomy 03/28/2024 FINDINGS: Heart Rate: 145.95 bpm Amniotic Fluid Volume: 17.7 cm; normal range Number: 1 Position: CEPHALIC BIOMETRY: BPD: 8.28 cm; 33 weeks 2 days; 14 % HC: 30.54 cm; 33 weeks 6 days; 6.90 % AC: 30.42 cm; 34 weeks 3 days; 45.70 % FL: 6.30 cm; 32 weeks 4 days; 4.20 % EFW: 2262.73 g; 20.10 % FL/AC: 20.70 FL/BPD: 76.08 HC/AC: 1.00 GESTATIONAL AGE: Age by EDC: 34 weeks 5 days ARMANI by EDC: 2024-08-12 Age by US: 33 weeks 4 days ARMANI by US: 2024-08-20 US/US OB growth IMPRESSION: 1. Single live intrauterine with growth detailed above. Electronically authenticated by: SALMA DESHPANDE Date: 07/06/2024 11:23
== END 2024-07-06 09:31 | disposition home or self-care (01) ==
LOC: US 09:30
PROVIDERS: Visit Provider Obstetrics & Gynecology
DX: O36.63X0 Maternal care for excessive fetal growth, third trimester, not applicable or unspecified (principal); Z3A.33 33 weeks gestation of pregnancy
CPT/HCPCS: 76816

== ENCOUNTER 2024-07-16 19:53 | Observation (INO) | payer OTHER, SELFPAY ==
--- OUTSIDE RECORDS SUMMARY | 2024-07-16 19:59 | XMS_ITS | CCD ---
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 Name Role Phone HARSHAL, DR [...] Admitting Unavailable KARASIK, DR STEVENS Consulting Unavailable LENOASIK, DR STEVENS Attending Unavailable LENOASIK, DR STEVENS Admitting Unavailable Дмитрий OLIVARES, Merlene Craig Unavailable [phone] Tamir Fuentes MD Primary Care Provider [phone] Unavailable Primary Care Provider Unavailabl e KATRIN, JORGE LUIS R Referring Unavailable MOUSSA, JEET NADIM Attending Unavailable KATRIN, JORGE LUIS R Referring Unavailable Quinton Bibiana MONROY Unavailable KATRIN, JORGE LUIS R Referring Unavailable QUINTON, BIBIANA Attending Unavailable DOLCE, EMILY Grimaldo Attending Unavailable DOLCE, EMILY Grimaldo Referring Unavailable DOLCE, EMILY Grimaldo [...] Facility (1 source) Penicillin Drug Allergy [facility] Repository (20 sources) Penicillin G Drug Allergy 4 [facility] Work Phone: (20 sources) Penicillins; Translations: [PENICILLINS] Drug Allergy 4 [facility] (2 sources) Penicillins Propensity to adverse reactions to drug 4 [facility] Medications Current Medications Medication Drug Class(es) Dates Sig (Normalized) Sig (Original) omeprazole 20 mg delayed release oral capsule (5 sources) Proton Pump Inhibitor Start: 06-27-2024 End: 06-27-2025 take 1 capsule by mouth before mealtime omeprazole (PriLOSEC) [address] capsule Indications: Heartburn during in third trimester Take 1 capsule (20 mg) by mouth in the morning. Take before meals. Do not crush or chew.. 30 capsule 11 06/27/2024 06/27/2025 Active [id number] fumarate-FA 28-800 mg-mcg tablet (2 sources) take 1 tablet by mouth in the morning [id number] fumarate-FA 28-800 mg-mcg tablet Take 1 tablet by mouth in the morning. Active Vit-Fe Fumarate-FA ( Vitamins) 28-0.8 MG tablet (20 sources) Start: 01-09-2024 End: 01-08-2025 take 1 tablet by mouth once daily Vit-Fe Fumarate-FA ( Vitamins) 28-0.8 MG tablet Indications: First trimester Take 1 tablet by mouth Daily 30 tablet 11 01/09/2024 01/08/2025 Active Completed/Discontinued Medications Medication Drug Class(es) Dates Sig (Normalized) Sig (Original) metoclopramide 10 mg oral tablet (5 sources) Dopamine-2 Receptor Antagonist Start: 06-27-2024 End: 07-27-2024 metoclopramide (Reglan) 10 MG tablet Indications: Heartburn during in third trimester Take 1 tablet (10 mg) by mouth in the morning and 1 tablet (10 mg) at noon and 1 tablet (10 mg) in the evening. Take before meals. Take 1 tablet by mouth 30 minutes prior to meals 3 times daily as needed for nausea.. 90 tablet 1 06/27/2024 07/11/2024 Discontinued (Other) Problems Active Problems Problem Classification Problem Date Documented Date Episodic/Chronic Administrative/social admission (2 sources) Patient encounter status; Translations: [Encounter for examination and observation for unspecified reason] Onset: 04-16-2024 04-16-2024 Episodic Diabetes mellitus without complication (6 sources) Hyperglycemia, unspecified; Translations: [Abnormal glucose tolerance test] Onset: 2021 Episodic Hemorrhage during ; abruptio placenta; placenta previa (4 sources) Low lying placenta; Translations: [Low lying placenta NOS or without hemorrhage, unspecified trimester] Onset: 04-16-2024 04-16-2024 Episodic Immunizations and screening for infectious disease (3 sources) Contact with and (suspected) exposure to infections with a predominantly sexual mode of transmission; Translations: [Exposure to sexually transmissible disorder] Onset: 06-28-2021 03-05-2024 Episodic Menstrual disorders (4 sources) Irregular menstruation, unspecified; Translations: [IRREGULAR MENSTRUATION UNSPECIFIED] Onset: 06-23-2021 Chronic Other complications of ; puerperium affecting management of mother (4 sources) heart echogenicity on obstetric ultrasound scan; Translations: [ cardiac echogenic focus, antepartum] Onset: 04-11-2024 04-11-2024 Episodic Other complications of (2 sources) Heartburn; Translations: [Other specified related conditions, third trimester] 06-27-2024 Episodic Other complications of (2 sources) Excessive growth affecting management of mother; Translations: [Maternal care for excessive growth, unspecified trimester, not applicable or unspecified] 06-27-2024 Episodic Other female genital disorders (4 sources) Unspecified dyspareunia; Translations: [UNSPECIFIED DYSPAREUNIA] Onset: 03-24-2022 Chronic Other female genital disorders (2 sources) Vaginal discharge; Translations: [Other specified noninflammatory disorders of vagina] 03-05-2024 Episodic Other and delivery including normal (20 [...] weeks gestation of ] Onset: 04-16-2024 Episodic Residual codes; unclassified (2 sources) Gestation period, 26 weeks; Translations: [26 weeks gestation of ] 05-07-2024 Episodic Residual codes; unclassified (2 sources) Gestation period, 28 weeks; Translations: [28 weeks gestation of ] 05-21-2024 Episodic Residual codes; unclassified (2 sources) Gestation period, 30 weeks; Translations: [30 weeks gestation of ] 06-06-2024 Episodic Residual codes; unclassified (2 sources) Gestation period, 33 weeks; Translations: [33 weeks gestation of ] 06-27-2024 Episodic Residual codes; unclassified (2 sources) Gestation period, 35 weeks; Translations: [35 weeks gestation of ] 07-11-2024 Episodic Unclassified (20 sources) OB Reminders Onset: 01-20-2024 01-20-2024 Unclassified (2 sources) Maternal care for other (suspected) abnormality and damage, cardiac anomalies, not applicable or unspecified; Translations: [Maternal care for other (suspected) abnormality and damage, cardiac anomalies, not applicable or unspecified] Onset: 04-16-2024 Unclassified (1 source) EIF Onset: 04-16-2024 Past or Other Problems Problem Classification Problem Date Documented Da te Episodic/Chronic OB-related trauma to perineum and vulva (1 source) Second degree perineal laceration during delivery; Translations: [SECOND DEG PERINEAL LAC DUR DELIV] Onset: 01-12-2022 Episodic Residual codes; unclassified (1 source) 39 weeks gestation of ; Translations: [39 WEEKS GESTATION OF ] Onset: 01-12-2022 Episodic NEGATED: Highlighted row has been ruled out!Unclassified (20 sources) No known active problems 12-07-2023 Results Test Name Value Interpretation Reference Range Facility Urinalysis macro (dipstick) panel (U)on 07-11-2024 Bilirubin, UA Negative Negative - 4(70) +++ mg/dL [facility] Blood, UA Negative Negative - 50 Grey/mcL [facility] Clarity, UA Clear [facility] Color, UA Yellow [facility] Glucose, UA Negative Negative - 1999(110) ++++ mg/dL [facility] Interpretation and review of laboratory results Abnormal [facility] Ketones, UA Positive Negative - 160(16) ++++ mg/dL [facility] Leukocytes, UA Negative Negative - 500+++ Juan Alberto/mcL [facility] Nitrite, UA Negative Negative - Positive [facility] pH, UA 6 5 - 9 [facility] Protein, UA Negative Negative - 2000(20) ++++ mg/dL [facility] Spec Grav, UA 1.03 1 - 1.03 [facility] Urobilinogen, UA 0.2 0.2 - 12 mg/dL [facility] Urinalysis macro (dipstick) panel (U)on 06-27-2024 Bilirubin, UA Negative Negative - 4(70) +++ mg/dL [facility] Blood, UA Negative Negative - 50 Grey/mcL [facility] Clarity, UA Clear [facility] Color, UA Yellow [facility] Glucose, UA Negative Negative - 1999(110) ++++ mg/dL [facility] Interpretation and review of laboratory results Abnormal [facility] Ketones, UA Positive Negative - 160(16) ++++ mg/dL [facility] Comment on above: 15 Leukocytes, UA Negative Negative - 500+++ Juan Alberto/mcL [facility] Nitrite, UA Negative Negative - Positive [facility] pH, UA 6.5 5 - 9 [facility] Protein, UA Trace Negative - 1999(20) ++++ mg/dL [facility] Spec Grav, UA 1.02 1 - 1.03 [facility] Urobilinogen, UA 2.0 0.2 - 12 mg/dL [facility] Urinalysis macro (dipstick) panel (U)on 06-06-2024 Bilirubin, UA Negative Negative - 4(70) +++ mg/dL [facility] Blood, UA Negative Negative - 50 Grey/mcL [facility] Clarity, UA Clear [facility] Color, UA Yellow [facility] Glucose, UA Negative Negative - 1999(110) ++++ mg/dL [facility] Interpretation and review of laboratory results Abnormal [facility] Ketones, UA Negative Negative - 160(16) ++++ mg/dL [facility] Leukocytes, UA Trace Negative - 500+++ Juan Alberto/mcL [facility] Nitrite, UA Negative Negative - Positive [facility] pH, UA 7 5 - 9 [facility] Protein, UA Negative Negative - 1999(20) ++++ mg/dL [facility] Spec Grav, UA 1.015 1 - 1.03 [facility] Urobilinogen, UA 0.2 0.2 - 12 mg/dL [facility] Urinalysis macro (dipstick) panel (U)on 05-21-2024 Bilirubin, UA Negative Negative - 4(70) +++ mg/dL [facility] Blood, UA Negative Negative - 50 Grey/mcL [facility] Clarity, UA Clear [facility] Color, UA Yellow [facility] Glucose, UA Negative Negative - 1999(110) ++++ mg/dL [facility] Interpretation and review of laboratory results Normal [facility] Ketones, UA Negative Negative - 160(16) ++++ mg/dL [facility] Leukocytes, UA Negative Negative - 500+++ Juan Alberto/mcL [facility] Nitrite, UA Negative Negative - Positive [facility] pH, UA 6 5 - 9 [facility] Protein, UA Negative Negative - 2000(20) ++++ mg/dL [facility] Spec Grav, UA 1.025 1 - 1.03 [facility] Urobilinogen, UA 0.2 0.2 - 12 mg/dL [facility] Urinalysis macro (dipstick) panel (U)on 05-07-2024 Bilirubin, UA Negative Negative - 4(70) +++ mg/dL [facility] Blood, UA Negative Negative - 50 Grey/mcL [facility] Clarity, UA Clear [facility] Color, UA Yellow [facility] Glucose, UA Negative Negative - 2000(110) ++++ mg/dL [facility] Interpretation and review of laboratory results Normal [facility] Ketones, UA Negative Negative - 160(16) ++++ mg/dL [facility] Leukocytes, UA Negative Negative - 500+++ Juan Alberto/mcL [facility] Nitrite, UA Negative Negative - Positive [facility] pH, UA 5 5 - 9 [facility] Protein, UA Negative Negative - 2000(20) ++++ mg/dL [facility] Spec Grav, UA 1.02 1 - 1.03 [facility] Urobilinogen, UA 0.2 0.2 - 12 mg/dL [facility] GLUCOSE TOLERANCE 3 HOURon 07-05-2023 GLUCOSE TOLERANCE 3 HOUR High mg/dL [facility] Comment on above: GLU FAST 86 (<95) Co l: 05/05/24 0808 GLU 1HR 181H (<180) Col: 05/05/24 0912 GLU 2HR 135 (<155) Col: 05/05/24 1012 GLU 3HR 125 (<140) Col: 05/05/24 1112 Interpretation and review of laboratory results Abnormal [facility] ALL CBC WITH AUTO DIFFon BASOPHILS ABSOLUTE AUTO 0.1 [facility] Basophils/100 WBC (Bld) 0.5 % 0.2 - 2.0 % [facility] Eosinophils/100 WBC (Bld) 1.6 % 0.9 - 7.0 % [facility] Erythrocyte distribution width (RBC) [Ratio] 12.9 % 11.0 - 15.0 % [facility] Hematocrit (Bld) [Volume fraction] 37.9 % 36.0 - 48.0 % [facility] Hemoglobin (Bld) [Mass/Vol] 12.5 g/dL 12.0 - 16.0 g/dL [facility] IMMATURE GRANULOCYTES ABS AUTO 0.23 High [facility] Immature granulocytes/100 WBC (Bld) 1.8 % High 0.0 - 0.5 % [facility] Interpretation and review of laboratory results Abnormal [facility] LYMPHOCYTES ABSOLUTE AUTO 2.1 [facility] Lymphocytes/100 WBC (Bld) 17 % Low 20.5 - 60.0 % [facility] MCH (RBC) [Entitic mass] 31.5 pg 26.7 - 34.0 pg [facility] MCHC (RBC) [Mass/Vol] 33 g/dL 29.9 - 35.2 g/dL [facility] MCV (RBC) [Entitic vol] 95.5 fL 81.0 - 99.0 fL [facility] MONOCYTES ABSOLUTE AUTO 0.9 High [facility] Monocytes/100 WBC (Bld) 6.8 % 1.7 - 12.0 % [facility] NEUTROPHILS ABSOLUTE AUTO 9.1 High [facility] Neutrophils/100 WBC (Bld) 72.3 % 43.0 - 75.0 % [facility] Platelet mean volume (Bld) [Entitic vol] 9.5 fL 9.5 - 13.5 [facility]L [facility] PLT 244 [facility] RBC 3.97 Low [facility] WBC 12.6 High [facility] Urinalysis macro (dipstick) panel (U)on 04-03-2024 Bilirubin, UA Negative Negative - 4(70) +++ mg/dL [facility] Blood, UA Negative Negative - 50 Grey/mcL [facility] Clarity, UA Clear [facility] Color, UA Yellow [facility] Glucose, UA Negative Negative - 2000(110) ++++ mg/dL [facility] Interpretation and review of laboratory results Normal [facility] Ketones, UA Negative Negative - 160(16) ++++ mg/dL [facility] Leukocytes, UA Negative Negative - 500+++ Juan Alberto/mcL [facility] Nitrite, UA Negative Negative - Positive [facility] pH, UA 6.5 5 - 9 [facility] Protein, UA Negative Negative - 2000(20) ++++ mg/dL [facility] Spec Grav, UA 1.02 1 - 1.03 [facility] Urobilinogen, UA 0.2 0.2 - 12 mg/dL [facility] AFP, SERUM, OPEN SPINA BIFID Aon 03-31-2024 AFP MOM 1.42 . [facility] AFP VALUE 88.7 ng/mL . [facility] COMMENT: Comment . [facility] Comment on above: Radha Viveros , Ph.D., [facility] Director References: Available Upon Request. Multiples Of Median Cutoffs For AFP Elevations Ricardo 2.5 Black 2.8 IDD 2.0 Twins 4.5 Abbreviation Definitions IDD - Insulin Dep Diabetes OSBR - Open Spina Bifida Risk For further inquiries contact [facility] at [phone]. This test was developed and its performance characteristics determined by [employer]. It has not been cleared or approved by the Food and Drug Administration. Performed at: [facility] [address] [place], [place] [id number] Healthcare Advisory Services Manager: Priya Jung [facility], Phone: [phone] GEST. AGE ON COLLECTION DATE 20.4 . weeks [facility] GESTAT. AGE BASED ON As provided . [facility] Comment on above: Recalculations are n ot recommended when gestational dating by LMP and ultrasound are within 10 days. INSULIN DEP DIABETES No . [facility] INTERPRETATION Comment . [facility] Comment on above: Interpretation: Scre en Negative [...] Customer Services to discuss available options. The [employer] recommends amniocentesis be offered to women age 35 and older. [age] [facility] MULTIPLE GESTATION No . [facility] OSBR RISK 1 IN 3404 . [facility] RACE . [facility] RESULTS Report . [facility] TEST RESULTS: Negative . [facility] WEIGHT 137 . lbs [facility] N N [id number] 1 17 N 1 Y 137 N N N N N White/ [facility] IGP,APTIMA HPV,AGE GDLNon AGE GDLN ACOG TESTING Note . [facility] Comment on above: TESTS RESULT FLAG UN ITS REF RANGE LAB Clinician Provided Cytology Information Source.............Cervix Other.............. No. of containers..01 ThinPrep Vial Age Algo ACOG Martha... 30-65 01 FLAG LEGEND: L-Low Normal,H-High Normal,LL-Alert Low,HH-Alert High <-Panic Low,>-Panic High,A-Abnormal,AA-Critical Abnormal Performed at: 01 =G [facility] [address] [place] [address] Deysi Tidwell MD, HPV APTIMA Negative Negative [facility] Comment on above: This nucleic acid am plification test detects fourteen high- risk HPV types (16,18,31,33,35,39,45,51,52,56,58,59,66,68) without differentiation. Performed at: =[facility] [address] [id number] Healthcare Advisory Services Manager: Deysi Tidwell MD, Phone: [phone] Performed at: - [address] [id number] Healthcare Advisory Services Manager: Deysi Tidwell MD, Phone: [phone] IGP, APTIMA HPV, RFX 16/18,45 Note . [facility] Comment on above: TESTS RESULT FLAG UN ITS REF RANGE LAB DIAGNOSIS: 02 NEGATIVE FOR INTRAEPITHELIAL LESION OR MALIGNANCY. Specimen adequacy: 02 Satisfactory for evaluation. Endocervical and/or squamous metaplastic cells (endocervical component) are present. Performed by: Carlos Muniz, Batter Mixer Helper (ASCP) . 02 Note: Note 02 The Pap smear is a screening test designed to aid in the detection of premalignant and malignant conditions of the uterine cervix. It is not a diagnostic procedure and should not be used as the sole means of detecting cervical cancer. Both false-positive and false-negative reports do occur. Test Methodology: Note 02 This liquid based ThinPrep(R) pap test was screened with the use of an image guided system. HPV Genotype Reflex Note 02 Criteria not met, HPV Genotype not performed. FLAG LEGEND: L-Low Normal,H-High Normal,LL-Alert Low,HH-Alert High <-Panic Low,>-Panic High,A-Abnormal,AA-Critical Abnormal Performed at: [facility] [place] [address] Deysi Tidwell MD, SPATULA-ALONE CERVIX [facility] URETHRITIS/DISCHARGE PLUS VA GINITIS (HTRX)on 03-07-2024 ATOPOBIUM VAGINAE 29.123 Abnormal [facility] ATOPOBIUM VAGINAE Detected Abnormal [facility] BVAB 2,3 (BACTERIAL VAGINOSIS ASSOCIATED BACTERIA 2, 3); MOBILUNCUS SPP 0.000 [facility] BVAB 2,3 (BACTERIAL VAGINOSIS ASSOCIATED BACTERIA 2, 3); MOBILUNCUS SPP Not detected [facility] TAMIR ALBICANS, PARAPSILOSIS, TROPICALIS 0.000 [facility] TAMIR ALBICANS, PARAPSILOSIS, TROPICALIS Not detected [facility] TAMIR GLABRATA 0.000 [facility] TAMIR GLABRATA Not detected [facility] TAMIR KRUSEI 0.000 [facility] TAMIR KRUSEI Not detected [facility] CHLAMYDIA TRACHOMATIS 0.000 [facility] CHLAMYDIA TRACHOMATIS Not detected [facility] GARDNERELLA VAGINALIS 0.000 [facility] GARDNERELLA VAGINALIS Not detected [facility] Interpretation and review of laboratory results Abnormal [facility] MEGASPHAERA (TYPES 1, 2) 0.000 [facility] MEGASPHAERA (TYPES 1, 2) Not detected [facility] MYCOPLASMA GENITALIUM 0.000 [facility] MYCOPLASMA GENITALIUM Not detected [facility] NEISSERIA GONORRHOEAE 0.000 [facility] NEISSERIA GONORRHOEAE Not detected [facility] TRICHOMONAS VAGINALIS 0.000 [facility] TRICHOMONAS VAGINALIS Not detected [facility] Cervical or vaginal smear or scraping studyon 03-05-2024 [facility] Urinalysis macro (dipstick) panel (U)on 03-05-2024 Bilirubin, UA Negative Negative - 4(70) +++ mg/dL [facility] Blood, UA Negative Negative - 50 Grey/mcL [facility] Clarity, UA Clear [facility] Color, UA Yellow [facility] Glucose, UA Negative Negative - 2000(110) ++++ mg/dL [facility] Interpretation and review of laboratory results Normal [facility] Ketones, UA Negative Negative - 160(16) ++++ mg/dL [facility] Leukocytes, UA Negative Negative - 500+++ Juan Alberto/mcL [facility] Nitrite, UA Negative Negative - Positive [facility] pH, UA 6.5 5 - 9 [facility] Protein, UA Negative Negative - 1999(20) ++++ mg/dL [facility] Spec Grav, UA 1.020 1 - 1.03 [facility] Urobilinogen, UA 1.0 0.2 - 12 mg/dL [facility] Urinalysis macro (dipstick) panel (U)on 02-06-2024 Bilirubin, UA Negative Negative - 4(70) +++ mg/dL [facility] Blood, UA Negative Negative - 50 Grey/mcL [facility] Clarity, UA Clear [facility] Color, UA Yellow [facility] Glucose, UA Negative Negative - 1999(110) ++++ mg/dL [facility] Interpretation and review of laboratory results Normal [facility] Ketones, UA Negative Negative - 160(16) ++++ mg/dL [facility] Leukocytes, UA Negative Negative - 500+++ Juan Alberto/mcL [facility] Nitrite, UA Negative Negative - Positive [facility] pH, UA 7.0 5 - 9 [facility] Protein, UA Negative Negative - 1999(20) ++++ mg/dL [facility] Spec Grav, UA 1.015 1 - 1.03 [facility] Urobilinogen, UA 0.2 0.2 - 12 mg/dL [facility] CBC without diffon Hematocrit (Bld) [Volume fraction] 40.3 % [facility] Hemoglobin (Bld) [Mass/Vol] 13.3 g/dL [facility] Platelets (Bld) [#/Vol] 329 10*3/uL [facility] Rbc Mcv (Fl) By Automated Count 93.3 [facility] Chlamydia/GC by PCR Mariaa Sw abon 01-27-2024 Chlamydia Dna(Pcr) Not detected [facility] Gonorrhoeae Dna(Pcr) Not detected [facility] HIV 1&2 AB/AG Screen (P24 AG )on 01-27-2024 HIV 1&2 AB/AG Non-Reactive [facility] Hepatitis B surface antigeno n 01-27-2024 Hepatitis B Surface Antigen Negative [facility] Hepatitis C(HCV) Ab w/ Refle x to PCRon 01-27-2024 HCV Ab Ql (S) non reacitve [facility] No Panel Informationon 01-[address] [facility] Rubella IGG immune statuson 01-27-2024 Rubella immune IgG 9.62 [facility] Syphilis Total(Unknown Syphi lis Status)on 01-27-2024 Syphilis Non-Reactive [facility] Type and screenon 01-27-2024 Abo/Rh(D) Positive [facility] LIPID PROFILEon 03-29-2022 CHOL-HDL RATIO NORM SEE BELOW Normal [facility] Comment on above: Result Comment: 3.3 - 4.4 LOW RISK 4.4 - 7.1 AVERAGE RISK 7.1 - 11.0 MODERATE RISK >11.0 HIGH RISK Performed By: #### L IPID #### [facility] [address] [place] [address] Dr. Parth Lucero Cholesterol [Mass/Vol] 197 mg/dL Normal <=200 [facility] Comment on above: Performed By: #### L IPID #### [facility] [address] [address] [address] Parth Lucero Cholesterol in HDL [Mass/Vol] 66 mg/dL Critically high 40-60 [facility] Comment on above: Performed By: #### L IPID #### [facility] [address] [address] [address] Parth Lucero Cholesterol in LDL [Mass/Vol] 120.0 mg/dL Normal [facility] Comment on above: Performed By: #### L IPID #### [facility] [address] [address] [address] Parth Lucero Cholesterol.total/Ch olesterol in HDL [Mass ratio] 3.0 {ratio} Normal [facility] Comment on above: Performed By: #### L IPID #### [facility] [address] [address] [address] Parth Lucero HDL NORMAL > or = 60 mg/dl - LO W CARDIOVASCULAR RISK <40 mg/dl - HIGH CARDIOVASCULAR RISK Normal [facility] Comment on above: Performed By: #### L IPID #### [facility] [address] [address] [address] Parth Lucero LDL CALC NORMAL SEE BELOW Normal [facility] Comment on above: Result Comment: <100 mg/dl OPTIMAL 100 - 129 mg/dl NEAR OR ABOVE OPTIMAL 130 - 159 mg/dl BORDERLINE HIGH 160 - 189 mg/dl HIGH >190 mg/dl VERY HIGH Performed By: #### L IPID #### [facility] [address] [place] [address] Dr. Parth Lucero Triglyceride [Mass/Vol] 55 mg/dL Normal <=150 [facility] Comment on above: Performed By: #### L IPID #### [facility] [address] [address] [address] Parth Lucero VLDL CALC 11.0 mg/dL Normal [facility] Comment on above: Performed By: #### L IPID #### [facility] [address] [place] [address] Dr. Parth Lucero CBC AUTO DIFFon 01-08-2022 BASO # 0.0 103/ul Normal 0.0-0.1 [facility] Comment on above: Performed By: #### 4 [id number] #### [facility] [address] [address] [address] Parth Lucero Basophils/100 WBC (Bld) 0.3 % Normal 0.2-2.0 [facility] Comment on above: Performed By: #### 4 [id number] #### [facility] [address] [place] [address] Dr. Parth Lucero EO # 0.1 103/ul Normal 0.0-0.7 [facility] Comment on above: Performed By: #### 4 [id number] #### [facility] [address] [address] [address] Parth Lucero Eosinophils/100 WBC (Bld) 0.4 % Critically low 0.9-7.0 [facility] Comment on above: Performed By: #### 4 [id number] #### [facility] [address] [place] [address] Dr. Parth Lucero Erythrocyte distribution width (RBC) [Ratio] 13.4 % Normal 11.0-15.0 [facility] Comment on above: Performed By: #### 4 [id number] #### [facility] [address] [address] [address] Parth Lucero Hematocrit (Bld) [Volume fraction] 36.0 % Normal 36.0-48.0 [facility] Comment on above: Performed By: #### 4 [id number] #### [facility] [address] [place] [address] Dr. Parth Lucero Hemoglobin (Bld) [Mass/Vol] 12.1 g/dL Normal 12.0-16.0 [facility] Comment on above: Performed By: #### 4 [id number] #### [facility] [address] [place] [address] Dr. Parth Lucero IG # 0.10 10e3/ul Critically high 0.00-0.03 [facility] Comment on above: Performed By: #### 4 [id number] #### [facility] [address] [place] [address] Dr. Parth Lucero IG % 0.7 % Critically high 0.0-0.5 [facility] Comment on above: Performed By: #### 4 [id number] #### [facility] [address] [place] [address] Dr. Parth Lucero LYMPH # 2.1 103/ul Normal 1.2-3.8 [facility] Comment on above: Performed By: #### 4 [id number] #### [facility] [address] [place] [address] Dr. Parht Lucero Lymphocytes/100 WBC (Bld) 14.0 % Critically low 20.5-60.0 [facility] Comment on above: Performed By: #### 4 [id number] #### [facility] [address] [place] [address] Dr. Parth Lucero MANUAL DIFF REQ NO Normal [facility] Comment on above: Performed By: #### 4 [id number] #### [facility] [address] [place] [address] Dr. Parth Lucero MCH (RBC) [Entitic mass] 31.0 pg Normal 26.7-34.0 [facility] Comment on above: Performed By: #### 4 [id number] #### [facility] [address] [place] [address] Dr. Parth Lucero MCHC (RBC) [Mass/Vol] 33.6 g/dL Normal 29.9-35.2 [facility] Comment on above: Performed By: #### 4 [id number] #### [facility] [address] [place] [address] Dr. Parth Lucero MCV (RBC) [Entitic vol] 92.3 fL Normal 81.0-99.0 [facility] Comment on above: Performed By: #### 4 [id number] #### [facility] [address] [place] [address] Dr. Parth Lucero MONO # 1.2 103/ul Critically high 0.3-0.8 [facility] Comment on above: Performed By: #### 4 [id number] #### [facility] [address] [place] [address] Dr. Parth Lucero Monocytes/100 WBC (Bld) 7.7 % Normal 1.7-12.0 [facility] Comment on above: Performed By: #### 4 [id number] #### [facility] [address] [place] [address] Dr. Parth Lucero NEUT # 11.7 103/ul Critically high 1.4-6.5 [facility] Comment on above: Performed By: #### 4 [id number] #### [facility] [address] [place] [address] Dr. Parth Lucero Neutrophils/100 WBC (Bld) 76.9 % Critically high 43.0-75.0 [facility] Comment on above: Performed By: #### 4 [id number] #### [facility] [address] [place] [address] Dr. Parth Lucero Platelet mean volume (Bld) [Entitic vol] 10.0 fL Normal 9.5-13.5 [facility] Comment on above: Performed By: #### 4 [id number] #### [facility] [address] [place] [address] Dr. Parth Lucero PLT 231 103/ul Normal 150-450 [facility] Comment on above: Performed By: #### 4 [id number] #### [facility] [address] [place] [address] Dr. Parth Lucero RBC 3.90 106/ul Critically low 4.20-5.40 [facility] Comment on above: Performed By: #### 4 [id number] #### [facility] [address] [place] [address] Dr. Parth Lucero WBC 15.2 103/ul Critically high 4.0-11.0 [facility] Comment on above: Performed By: #### 4 [id number] #### [facility] [address] [place] [address] Dr. Parth Lucero CBC AUTO DIFFon 01-07-2022 BASO # 0.0 103/ul Normal 0.0-0.1 [facility] Comment on above: Performed By: #### C BC #### [facility] [address] [place] [address] Dr. Parth Lucero Basophils/100 WBC (Bld) 0.4 % Normal 0.2-2.0 [facility] Comment on above: Performed By: #### C BC #### [facility] [address] [place] [address] Dr. Parth Lucero EO # 0.1 103/ul Normal 0.0-0.7 [facility] Comment on above: Performed By: #### C BC #### [facility] [address] [place] [address] Dr. Parth Lucero Eosinophils/100 WBC (Bld) 1.1 % Normal 0.9-7.0 [facility] Comment on above: Performed By: #### C BC #### [facility] [address] [place] [address] Dr. Parth Lucero Erythrocyte distribution width (RBC) [Ratio] 13.3 % Normal 11.0-15.0 [facility] Comment on above: Performed By: #### C BC #### [facility] [address] [place] [address] Dr. Parth Lucero Hematocrit (Bld) [Volume fraction] 39.2 % Normal 36.0-48.0 [facility] Comment on above: Performed By: #### C BC #### [facility] [address] [place] [address] Dr. Parth Lucero Hemoglobin (Bld) [Mass/Vol] 13.3 g/dL Normal 12.0-16.0 [facility] Comment on above: Performed By: #### C BC #### [facility] [address] [place] [address] Dr. Parth Lucero IG # 0.10 10e3/ul Critically high 0.00-0.03 [facility] Comment on above: Performed By: #### C BC #### [facility] [address] [place] [address] Dr. Parth Lucero IG % 1.0 % Critically high 0.0-0.5 [facility] Comment on above: Performed By: #### C BC #### [facility] [address] [place] [address] Dr. Parth Lucero LYMPH # 1.8 103/ul Normal 1.2-3.8 [facility] Comment on above: Performed By: #### C BC #### [facility] [address] [place] [address] Dr. Parth Lucero Lymphocytes/100 WBC (Bld) 18.0 % Critically low 20.5-60.0 [facility] Comment on above: Performed By: #### C BC #### [facility] [address] [place] [address] Dr. Parth Lucero MANUAL DIFF REQ NO Normal [facility] Comment on above: Performed By: #### C BC #### [facility] [address] [place] [address] Dr. Parth Lucero MCH (RBC) [Entitic mass] 31.1 pg Normal 26.7-34.0 [facility] Comment on above: Performed By: #### C BC #### [facility] [address] [place] [address] Dr. Parth Lucero MCHC (RBC) [Mass/Vol] 33.9 g/dL Normal 29.9-35.2 [facility] Comment on above: Performed By: #### C BC #### [facility] [address] [place] [address] Dr. Parth Lucero MCV (RBC) [Entitic vol] 91.8 fL Normal 81.0-99.0 [facility] Comment on above: Performed By: #### C BC #### [facility] [address] [place] [address] Dr. Parth Lucero MONO # 1.1 103/ul Critically high 0.3-0.8 [facility] Comment on above: Performed By: #### C BC #### [facility] [address] [place] [address] Dr. Parth Lucero Monocytes/100 WBC (Bld) 11.3 % Normal 1.7-12.0 [facility] Comment on above: Performed By: #### C BC #### [facility] [address] [place] [address] Dr. Parth Lucero NEUT # 6.9 103/ul Critically high 1.4-6.5 [facility] Comment on above: Performed By: #### C BC #### [facility] [address] [place] [address] Dr. Parth Lucero Neutrophils/100 WBC (Bld) 68.2 % Normal 43.0-75.0 [facility] Comment on above: Performed By: #### C BC #### [facility] [address] [place] [address] Dr. Parth Lucero Platelet mean volume (Bld) [Entitic vol] 10.6 fL Normal 9.5-13.5 [facility] Comment on above: Performed By: #### C BC #### [facility] [address] [place] [address] Dr. Parth Lucero PLT 258 103/ul Normal 150-450 [facility] Comment on above: Performed By: #### C BC #### [facility] [address] [place] [address] Dr. Parth Lucero RBC 4.27 106/ul Normal 4.20-5.40 [facility] Comment on above: Performed By: #### C BC #### [facility] [address] [place] [address] Dr. Parth Lucero WBC 10.1 103/ul Normal 4.0-11.0 [facility] Comment on above: Performed By: #### C BC #### [facility] [address] [place] [address] Dr. Parth Lucero Covid-19 PCR ([facility])on 12-19 SARS-CoV-2 (COVID-19) RNA RIGOBERTO+probe Ql (Unsp spec) Not detected Normal NOT DETECTED [facility] Comment on above: Result Comment: When [...] for this test is supported by the Safety Lead of Health and Human Service's declaration that [...] longer be used). Performed By: #### 4 [id number] #### [facility] [address] [place] [address] Dr. Parth Lucero DRUG SCREEN RAPID (URINE)on 01-07-2022 AMP Negative Normal NEGATIVE [facility] Comment on above: Performed By: #### L IPID #### [facility] [address] [place] [address] Dr. Parth Lucero BAR Negative Normal NEGATIVE [facility] Comment on above: Performed By: #### L IPID #### [facility] [address] [place] [address] Dr. Parth Lucero BUP Negative Normal NEGATIVE [facility] Comment on above: Performed By: #### L IPID #### [facility] [address] [address] [address] Parth Lucero BZO Negative Normal NEGATIVE [facility] Comment on above: Performed By: #### L IPID #### [facility] [address] [address] [address] Parth Lucero AMINTA Negative Normal NEGATIVE [facility] Comment on above: Performed By: #### L IPID #### [facility] [address] [place] [address] Dr. Parth Lucero CUT-OFFS SEE BELOW Normal [facility] Comment [...] ng/mL Performed By: #### L IPID #### [facility] [address] [place] [address] Dr. Parth Lucero DRUG CUT HEADER DRUG CLASS TEST SYSTEM CUT-OFF CONCENTRATIONS ARE FOLLOWS: Normal [facility] Comment on above: Performed By: #### L IPID #### [facility] [address] [place] [address] Dr. Parth Lucero mAMP Negative Normal NEGATIVE [facility] Comment on above: Performed By: #### L IPID #### [facility] [address] [place] [address] Dr. Parth Lucero MTD Negative Normal NEGATIVE [facility] Comment on above: Performed By: #### L IPID #### [facility] [address] [place] [address] Dr. Parth Lucero OPI Negative Normal NEGATIVE [facility] Comment on above: Performed By: #### L IPID #### [facility] [address] [address] [address] Parth Lucero OXY Negative Normal NEGATIVE [facility] Comment on above: Performed By: #### L IPID #### [facility] [address] [address] [address] Parth Lucero PCP Negative Normal NEGATIVE [facility] Comment on above: Performed By: #### L IPID #### [facility] [address] [address] [address] Parth Lucero PPX Negative Normal NEGATIVE [facility] Comment on above: Performed By: #### L IPID #### [facility] [address] [place] [address] Dr. Parth Lucero TCA Negative Normal NEGATIVE [facility] Comment on above: Performed By: #### L IPID #### [facility] [address] [place] [address] Dr. Parth Lucero THC Negative Normal NEGATIVE [facility] Comment on above: Performed By: #### L IPID #### [facility] [address] [address] [address] Parth Lucero TYPE AND SCREENon 01-07-2022 TYPE AND SCREEN Negative Normal [facility] Comment on above: Performed By: #### T NS #### [facility] [address] [place] [address] Dr. Parth Lucero GROUP B STREP CULTUREon 11-19 S. agalactiae Ag Ql (Unsp spec) Culture Observations: NEGATIVE FOR GROUP B STREPTOCOCCUS. Normal [facility] Comment on above: Performed By: #### 4 [id number] #### [facility] [address] [place] [address] Dr. Parth Lucero GTT 3 HR PREGon 2021 Glucose [Mass/Vol] 93 mg/dL Normal 74-106 [facility] Comment on above: Performed By: #### G TT3P #### [facility] [address] [place] [address] Dr. Parth Lucero Glucose [Mass/Vol] 173 mg/dL Normal [facility] Comment on above: Performed By: #### G TT3P #### [facility] [address] [place] [address] Dr. Parth Lucero Glucose [Mass/Vol] 149 mg/dL Normal [facility] Comment on above: Performed By: #### G TT3P #### [facility] [address] [place] [address] Dr. Parth Lucero Glucose [Mass/Vol] 128 mg/dL Normal [facility] Comment on above: Performed By: #### G TT3P #### [facility] [address] [place] [address] Dr. Parth Lucero GLUCOSE - 1HRon 10-09-2021 Glucose [Mass/Vol] 150 mg/dL Critically high 74-106 [facility] Comment on above: Performed By: #### G LU1HR #### [facility] [address] [place] [address] Dr. Parth Lucero HEMOGRAM AND PLATELon 2021 Hematocrit (Bld) [Volume fraction] 37.6 % Normal 36.0-48.0 [facility] Comment on above: Performed By: #### H H #### [facility] [address] [place] [address] Dr. Parth Lucero Hemoglobin (Bld) [Mass/Vol] 12.3 g/dL Normal 12.0-16.0 [facility] Comment on above: Performed By: #### H H #### [facility] [address] [place] [address] Dr. Parth Lucero MCH (RBC) [Entitic mass] 31.2 pg Normal 26.7-34.0 [facility] Comment on above: Performed By: #### H H #### [facility] [address] [place] [address] Dr. Parth Lucero MCHC (RBC) [Mass/Vol] 32.7 g/dL Normal 29.9-35.2 [facility] Comment on above: Performed By: #### H H #### [facility] [address] [place] [address] Dr. Parth Lucero MCV (RBC) [Entitic vol] 95.4 fL Normal 81.0-99.0 [facility] Comment on above: Performed By: #### H H #### [facility] [address] [place] [address] Dr. Parth Lucero PLT 240 103/ul Normal 150-450 [facility] Comment on above: Performed By: #### H H #### [facility] [address] [place] [address] Dr. Parth Lucero RBC 3.94 106/ul Critically low 4.20-5.40 [facility] Comment on above: Performed By: #### H H #### [facility] [address] [place] [address] Dr. Parth Lucero WBC 9.7 103/ul Normal 4.0-11.0 [facility] Comment on above: Performed By: #### H H #### [facility] [address] [place] [address] Dr. Parth Lucero PAP ACOG PANEL 2: 21 to 29on 09-02-2021 . . Normal [facility] Comment on above: Performed By: #### 4 [id number] #### [facility] [address] [place] [address] Dr. Parth Lucero Age Gdln ACOG Testing - [facility] Comment on above: Performed By: #### 4 [id number] #### [facility] [address] [place] [address] Dr. Parth Lucero DIAGNOSIS: Comment Normal [facility] Comment on above: Result Comment: NEGA TIVE FOR INTRAEPITHELIAL LESION OR MALIGNANCY. Performed By: #### 4 [id number] #### [facility] [address] [place] [address] Dr. Parth Lucero Methodology: Comment Normal [facility] Comment on above: Result Comment: This liquid based ThinPrep(R) pap test was screened with the use of an image guided system. Performed By: #### 4 [id number] #### [facility] [address] [place] [address] Dr. Parth Lucero Note: Comment [facility] Comment on above: Result Comment: The Pap smear is a screening test designed to aid in the detection of premalignant and malignant conditions of the uterine cervix. It is not a diagnostic procedure and should not be used as the sole means of detecting cervical cancer. Both false-positive and false-negative reports do occur. . Performed By: #### 4 [id number] #### [facility] [address] [address] [address] Parth Lucero Performed by: Comment Normal [facility] Comment on above: Result Comment: Vivian Paris, [employer]atter [employer]er Helper (ASCP) Performed By: #### 4 [id number] #### [facility] [address] [address] [address] Parth Lucero Reflex Criteria: Comment Normal [facility] Comment on above: Result Comment: The HPV DNA reflex criteria were not met with this specimen result therefore, no HPV testing was performed. . Performed By: #### 4 [id number] #### [facility] [address] [address] [address] Parth Lucero Specimen adequacy: Comment Normal [facility] Comment on above: Result Comment: Sati sfactory for evaluation. No endocervical component is identified. Performed By: #### 4 [id number] #### [facility] [address] [address] [address] Parth Lucero US PREG ANATOMY SINGLEon [...] by ultrasound, 56% by expected EDC; FL/AC: [id number] FL/BPD: 0.141624 HC/AC: 1.463289 GESTATIONAL AGE: Age by EDC: 21 weeks 0 days ARMANI by EDC: 01/12/2022 Age by current US: 20 weeks 1 day ARMANI by current US: 01/11/2022 IMPRESSION: Normal anatomy scan *Reference: [facility] Practice Guideline for the performance of Obstetric Ultrasound Examinations, March 20, 2007. Electronically authenticated by: ALONSO SANDERS Date: 2021-09-01 16:20 Normal [facility] CHLAMYDIA/GONOCOCCUS RIGOBERTO ( AB/URINE/PAPon 08-29-2021 Chlamydia trachomatis, RIGOBERTO Negative Normal Negative [facility] Comment on above: Performed By: #### L IPID #### [facility] [address] [place] [address] Dr. Parth Lucero Neisseria gonorrhoeae, RIGOBERTO Negative Normal Negative [facility] Comment on above: Performed By: #### L IPID #### [facility] [address] [place] [address] Dr. Parth Lucero AFP MATERNAL FOR SPINA BIFID Aon 08-18-2021 AFP MoM 1.13 Normal [facility] Comment on above: Performed By: #### 4 [id number] #### [facility] [address] [place] [address] Dr. Parth Lucero AFP Value 52.2 ng/mL Normal [facility] Comment on above: Performed By: #### 4 [id number] #### [facility] [address] [place] [address] Dr. Parth Lucero AFP, Serum for Spina Bifida Report Normal [facility] Comment on above: Performed By: #### 4 [id number] #### [facility] [address] [place] [address] Dr. Parth Lucero Comment Comment Normal [facility] Comment on above: Result Comment: Ruth Viveros, Ph.D., [facility], [place] Director . References: Available Upon Request. . Multiples Of Median Cutoffs For AFP Elevations Ricardo 2.5 Black 2.8 IDD 2.0 Twins 4.5 Abbreviation Definitions IDD - Insulin Dep Diabetes OSBR - Open Spina Bifida Risk . For further inquiries contact [facility] at [phone]. Performed By: #### [id number] #### [facility] [address] [address] [address] Parth Lucero Gest Age Collection Date 18.0 weeks Normal [facility] Comment on above: Performed By: #### [id number] #### [facility] [address] [address] [address] Parth Lucero Gestat, Age Based on LMP [facility] Comment on above: Result Comment: Reca lculations are not recommended when gestational dating by LMP and ultrasound are within 10 days. Performed By: #### [id number] #### [facility] [address] [address] [address] Parth Lucero Insulin Dep Diabetes No Normal [facility] Comment on above: Performed By: #### [id number] #### [facility] [address] [address] [address] Parth Lucero Interpretation Comment Normal [facility] Comment on above: Result Comment: Inte [...] Customer Services to discuss available options. The [employer] recommends amniocentesis be offered to women age 35 and older. Performed By: #### [id number] #### [facility] [address] [address] [address] Parth Lucero [age] Normal [facility] Comment on above: Performed By: #### [id number] #### [facility] [address] [address] [address] Parth Lucero Multiple Gestation No Normal [facility] Comment on above: Performed By: #### [id number] #### [facility] [address] [place] [address] Dr. Parth Lucero OSBR Risk 1 [place] 8106 Normal [facility] Comment on above: Performed By: #### [id number] #### [facility] [address] [address] [address] Parth Lucero PDF . Normal [facility] Comment on above: Result Comment: This test was developed and its performance characteristics determined by [employer]. It has not been cleared or approved by the Food and Drug Administration. Performed By: #### [id number] #### [facility] [address] [place] [address] Dr. Parth Lucero Race Normal [facility] Comment on above: Performed By: #### [id number] #### [facility] [address] [place] [address] Dr. Parth Lucero Test Results: Negative Normal [facility] Comment on above: Performed By: #### [id number] #### [facility] [address] [place] [address] Dr. Parth Lucero HEP B SURFACE ANTIGEN SCREEN on 06-25-2021 HBsAg Screen Negative Normal Negative [facility] Comment on above: Performed By: #### H BSANS #### [facility] [address] [place] [address] Dr. Parth Lucero HEPATITIS C VIRUS AB W/ REFL EX QUANTon 06-25-2021 HCV AB <0.1 Normal 0.0-0.9 [facility] Comment on above: Performed By: #### [id number] #### [facility] [address] [place] [address] Dr. Parth Lucero Interpretation: Comment Normal [facility] Comment on above: Result Comment: Nega tive Not infected with HCV, unless recent infection is suspected or other evidence exists to indicate HCV infection. Performed By: #### 4 [id number] #### [facility] [address] [place] [address] Dr. Parth Lucero HIV 1 AND 2 WITH REFLEXon HIV Screen 4th Generation wRfx Non-Reactive Normal Non Reactive [facility] Comment on above: Performed By: #### L IPID #### [facility] [address] [place] [address] Dr. Parth Lucero RPR QUANTon 06-25-2021 Rapid Plasma Reagin, Quant Non-Reactive Normal NonRea<1:1 [facility] Comment on above: Performed By: #### L IPID #### [facility] [address] [place] [address] Dr. Parth Lucero RUBELLA AB IGGon 06-25-2021 Rubella Antibodies, IgG 13.00 index Normal Immune >0.99 [facility] Comment on above: Result Comment: Non- immune <0.90 Equivocal 0.90 - 0.99 Immune >0.99 Performed By: #### [id number] #### [facility] [address] [place] [address] Dr. Parth Lucero CBC AUTO DIFFon 06-23-2021 BASO # 0.0 103/ul Normal 0.0-0.1 [facility] Comment on above: Performed By: #### L IPID #### [facility] [address] [place] [address] Dr. Parth Lucero Basophils/100 WBC (Bld) 0.3 % Normal 0.2-2.0 [facility] Comment on above: Performed By: #### L IPID #### [facility] [address] [place] [address] Dr. Parth Lucero EO # 0.1 103/ul Normal 0.0-0.7 [facility] Comment on above: Performed By: #### L IPID #### [facility] [address] [place] [address] Dr. Parth Lucero Eosinophils/100 WBC (Bld) 1.1 % Normal 0.9-7.0 [facility] Comment on above: Performed By: #### L IPID #### [facility] [address] [place] [address] Dr. Parth Lucero Erythrocyte distribution width (RBC) [Ratio] 12.7 % Normal 11.0-15.0 [facility] Comment on above: Performed By: #### L IPID #### [facility] [address] [place] [address] Dr. Parth Lucero Hematocrit (Bld) [Volume fraction] 38.2 % Normal 36.0-48.0 [facility] Comment on above: Performed By: #### L IPID #### [facility] [address] [place] [address] Dr. Parth Lucero Hemoglobin (Bld) [Mass/Vol] 13.0 g/dL Normal 12.0-16.0 [facility] Comment on above: Performed By: #### L IPID #### [facility] [address] [place] [address] Dr. Parth Lucero IG # 0.04 10e3/ul Critically high 0.00-0.03 [facility] Comment on above: Performed By: #### L IPID #### [facility] [address] [place] [address] Dr. Parth Lucero IG % 0.4 % Normal 0.0-0.5 [facility] Comment on above: Performed By: #### L IPID #### [facility] [address] [place] [address] Dr. Parth Lucero LYMPH # 2.3 103/ul Normal 1.2-3.8 [facility] Comment on above: Performed By: #### L IPID #### [facility] [address] [place] [address] Dr. Parth Lucero Lymphocytes/100 WBC (Bld) 23.8 % Normal 20.5-60.0 [facility] Comment on above: Performed By: #### L IPID #### [facility] [address] [place] [address] Dr. Parth Lucero MANUAL DIFF REQ NO Normal [facility] Comment on above: Performed By: #### L IPID #### [facility] [address] [address] [address] Parth Lucero MCH (RBC) [Entitic mass] 31.6 pg Normal 26.7-34.0 [facility] Comment on above: Performed By: #### L IPID #### [facility] [address] [place] [address] Dr. Parth Lucero MCHC (RBC) [Mass/Vol] 34.0 g/dL Normal 29.9-35.2 [facility] Comment on above: Performed By: #### L IPID #### [facility] [address] [place] [address] Dr. Parth Lucero MCV (RBC) [Entitic vol] 92.9 fL Normal 81.0-99.0 [facility] Comment on above: Performed By: #### L IPID #### [facility] [address] [place] [address] Dr. Parth Lucero MONO # 0.8 103/ul Normal 0.3-0.8 [facility] Comment on above: Performed By: #### L IPID #### [facility] [address] [place] [address] Dr. Parth Lucero Monocytes/100 WBC (Bld) 7.6 % Normal 1.7-12.0 [facility] Comment on above: Performed By: #### L IPID #### [facility] [address] [place] [address] Dr. Parth Lucero NEUT # 6.6 103/ul Critically high 1.4-6.5 [facility] Comment on above: Performed By: #### L IPID #### [facility] [address] [place] [address] Dr. Parth Lucero Neutrophils/100 WBC (Bld) 66.8 % Normal 43.0-75.0 [facility] Comment on above: Performed By: #### L IPID #### [facility] [address] [place] [address] Dr. Parth Lucero Platelet mean volume (Bld) [Entitic vol] 9.4 fL Critically low 9.5-13.5 [facility] Comment on above: Performed By: #### L IPID #### [facility] [address] [address] [address] Parth Lucero PLT 320 103/ul Normal 150-450 [facility] Comment on above: Performed By: #### L IPID #### [facility] [address] [address] [address] Parth Lucero RBC 4.11 106/ul Critically low 4.20-5.40 [facility] Comment on above: Performed By: #### L IPID #### [facility] [address] [address] [address] Parth Lucero WBC 9.8 103/ul Normal 4.0-11.0 [facility] Comment on above: Performed By: #### L IPID #### [facility] [address] [address] [address] Parth Lucero CULTURE URINEon 06-23-2021 CULTURE URINE Culture Observations : MODERATE GROWTH OF MIXED GENITAL BERNARDINO. NO POTENTIAL PATHOGENS SEEN. Normal [facility] Comment on above: Performed By: #### U RCX #### [facility] [address] [place] [address] Dr. Parth Lucero GLYCOHEMOGLOBIN A1Con 2021 ADA RECOMMENDATION ADA THERAPEUTIC TARGET 6.0 - 7.0 ACTION SUGGESTED > 7.0 Normal [facility] Comment on above: Performed By: #### A 1C #### [facility] [address] [place] [address] Dr. Parth Lucero Glucose [Mass/Vol] 105 mg/dL Normal [facility] Comment on above: Performed By: #### A 1C #### [facility] [address] [place] [address] Dr. Parth Lucero HbA1c (Bld) [Mass fraction] 5.3 % Normal <=6.0 [facility] Comment on above: Performed By: #### A 1C #### [facility] [address] [place] [address] Dr. Parth Lucero TAYLA BOX TEST PT SEND OUTo n 06-23-2021 SENT TO REF LAB 06/23/2021 Normal [facility] Comment on above: Performed By: #### [id number] #### [facility] [address] [address] [address] Parth Lucero TYPE AND SCREENon 06-23-2021 TYPE AND SCREEN Negative Normal [facility] Comment on above: Performed By: #### [id number] #### [facility] [address] [address] [address] Parth Lucero US PREG TVon 06-15-2021 [...] by: ALONSO SANDERS Date: 2021-06-15 09:44 Normal [facility] Auth for Release of Medical Recordson 06-05-2021 Auth for Release of Medical Records [id number]. [id number] Normal [facility] Vital Signs Date Time Vital Sign Value Performing Clinician Facility 07-11-2024 16:13-0500 Body mass index (BMI) [Ratio] 29.15 kg/m2 Bibiana MONROY Work Phone: [facility] 07-11-2024 16:13-0500 Body weight 77.02 kg Bibiana MONROY Work Phone: [facility] 07-11-2024 16:13-0500 Diastolic blood pressure 74 mm[Hg] Bibiana MONROY Work Phone: [facility] 07-11-2024 16:13-0500 Systolic blood pressure 112 mm[Hg] Bibiana MONROY Work Phone: [facility] 06-27-2024 16:21-0500 Body mass index (BMI) [Ratio] 27.98 kg/m2 Jorge Luis Katrin DO Work Phone: [facility] 06-27-2024 16:21-0500 Body weight 73.94 kg Jorge Luis Katrin DO Work Phone: [facility] 06-27-2024 16:21-0500 Diastolic blood pressure 70 mm[Hg] Jorge Luis Katrin DO Work Phone: [facility] 06-27-2024 16:21-0500 Systolic blood pressure 112 mm[Hg] Jorge Luis Katrin DO Work Phone: [facility] 06-06-2024 16:04-0500 Body mass index (BMI) [Ratio] 27.46 kg/m2 Bibiana Alligator PA Work Phone: [facility] 06-06-2024 16:04-0500 Body weight 72.58 kg Bibiana Quinton PA Work Phone: [facility] 06-06-2024 16:04-0500 Diastolic blood pressure 66 mm[Hg] Bibiana Quinton PA Work Phone: [facility] 06-06-2024 16:04-0500 Systolic blood pressure 110 mm[Hg] Bibiana Alligator PA Work Phone: [facility] 05-21-2024 16:56-0500 Body mass index (BMI) [Ratio] 27.09 kg/m2 Jorge Luis Katrin DO Work Phone: [facility] 05-21-2024 16:56-0500 Body weight 71.58 kg Jorge Luis Katrin DO Work Phone: [facility] 05-21-2024 16:56-0500 Diastolic blood pressure 64 mm[Hg] Jorge Luis Katrin DO Work Phone: [facility] 05-21-2024 16:56-0500 Systolic blood pressure 106 mm[Hg] Jorge Luis Katrin DO Work Phone: [facility] 05-07-2024 16:39-0500 Body mass index (BMI) [Ratio] 26.09 kg/m2 Bibiana MONROY Work Phone: [facility] 05-07-2024 16:39-0500 Body weight 68.95 kg Bibiana Quinton PA Work Phone: [facility] 05-07-2024 16:39-0500 Diastolic blood pressure 68 mm[Hg] Bibiana Alcantara PA Work Phone: [facility] 05-07-2024 16:39-0500 Systolic blood pressure 112 mm[Hg] Bibiana Alcantara PA Work Phone: [facility] 04-16-2024 14:18-0400 Body height 160 cm Jeet Tavares MD Work Phone: [facility] 04-16-2024 14:18-0400 Body mass index (BMI) [Ratio] [...] kg/m2 Jorge Luis Katrin DO Work Phone: [facility] 04-03-2024 14:57-0400 Body weight 67.13 kg Jorge Luis Katrin DO Work Phone: [facility] 04-03-2024 14:57-0400 Diastolic blood pressure 64 mm[Hg] Jorge Luis Katrin DO Work Phone: [facility] 04-03-2024 14:57-0400 Systolic blood pressure 100 mm[Hg] Jorge Luis Katrin DO Work Phone: [facility] 03-05-2024 16:05-0400 Body mass index (BMI) [Ratio] 23.54 kg/m2 Bibiana MONROY Work Phone: [facility] 03-05-2024 16:05-0400 Body weight 62.2 kg Bibiana MONROY Work Phone: [facility] 03-05-2024 16:05-0400 Diastolic blood pressure 74 mm[Hg] Bibiana MONROY Work Phone: [facility] 03-05-2024 16:05-0400 Systolic blood pressure 112 mm[Hg] Bibiana MONROY Work Phone: [facility] 02-06-2024 15:48-0400 Body mass index (BMI) [Ratio] 23.25 kg/m2 Jorge Luis Katrin DO Work Phone: [facility] 02-06-2024 15:48-0400 Body weight 61.43 kg Jorge Luis Katrin DO Work Phone: [facility] 02-06-2024 15:48-0400 Diastolic blood pressure 74 mm[Hg] Jorge Luis Katrin DO Work Phone: [facility] 02-06-2024 15:48-0400 Systolic blood pressure 112 mm[Hg] Jorge Luis Katrin DO Work Phone: [facility] 08-18-2021 18:08-0500 Body weight 63.[address] RODNEY CAPUTO [facility] Comment on above: Performed By: #### [id number] #### [facility] [address] [place] [address] Dr. Parth Lucero Encounters Encounter Date Encounter Type Care Provider Facility Start: 07-11-2024 End: 07-11-2024 flow sheet Bibiana MONROY Work Phone: [facility] Comment on above: Third trimester preg alfredo; 35 weeks gestation of Start: 07-11-2024 End: 07-11-2024 ambulatory BIBIANA ALCANTARA Not Available Start: 07-11-2024 End: 07-11-2024 Bamboo flowsheet Bibiana MONROY Work Phone: [facility] Start: 07-11-2024 End: 07-11-2024 Bamboo flowsheet Bibiana MONROY Work Phone: [facility] Start: 06-27-2024 End: 06-27-2024 ambulatory JORGE LUIS KATRIN Not Available Start: 06-27-2024 End: 06-27-2024 flow sheet Jorge Luis Katrin DO Work Phone: [facility] Comment on above: Third trimester preg alfredo; 33 weeks gestation of ; Heartburn during in third trimester; Excessive growth affecting management of , antepartum, single or unspecified fetus Start: 06-27-2024 End: 06-27-2024 Bamboo flowsheet Jorge Luis Katrin DO Work Phone: [facility] Start: 06-27-2024 End: 06-27-2024 Bamboo flowsheet Jorge Luis Katrin DO Work Phone: [facility] Start: 06-06-2024 End: 06-06-2024 ambulatory BIBIANA ALCANTARA Not Available Start: 06-06-2024 End: 06-06-2024 flow sheet Bibiana MONROY Work Phone: [facility] Comment on above: Third trimester preg alfredo; 30 weeks gestation of Start: 06-06-2024 End: 06-06-2024 Bamboo flowsheet iBbiana MONROY Work Phone: [facility] Start: 06-06-2024 End: 06-06-2024 Bamboo flowsheet Bibiana MONROY Work Phone: [facility] Start: 05-21-2024 End: 05-21-2024 ambulatory JORGE LUIS KATRIN Not Available Start: 05-21-2024 End: 05-21-2024 flow sheet Jorge Luis Katrin DO Work Phone: [facility] Comment on above: 28 weeks gestation o f ; Third trimester Start: 05-21-2024 End: 05-21-2024 Bamboo flowsheet Jorge Luis Katrin DO Work Phone: [facility] Start: 05-21-2024 End: 05-21-2024 Bamboo flowsheet Jorge Luis Katrin DO Work Phone: [facility] Start: 05-15-2024 End: 05-15-2024 ambulatory JORGE LUIS R KATRIN [facility] Start: 05-07-2024 End: 05-07-2024 flow sheet Bibiana MONROY Work Phone: [facility] Comment on above: 26 weeks gestation o f ; Second trimester ; Elevated glucose tolerance test Start: 05-07-2024 End: 05-07-2024 ambulatory BIBIANA ALCANTARA Not Available Start: 05-07-2024 End: 05-07-2024 Bamboo flowsheet Bibiana MONROY Work Phone: [facility] Start: 05-07-2024 End: 05-07-2024 Bamboo flowsheet Bibiana MONROY Work Phone: [facility] Start: 05-05-2024 End: 05-05-2024 Clinisync Result Encounter Jorge Luis Katrin DO Work Phone: [facility] Unsolicited Start: 05-05-2024 End: 05-05-2024 Clinisync Result Encounter Jorge Luis Katrin DO Work Phone: [facility]solic[facility] Start: 04-28-2024 End: 04-28-2024 Clinisync Result Encounter Jorge Luis Katrin DO Work Phone: [facility] Unsolic[facility] Start: 04-28-2024 End: 04-28-2024 Clinisync Result Encounter Jorge Luis Katrin DO Work Phone: [facility] Unsolic[facility] Start: 04-16-2024 End: 04-16-2024 Office outpatient new 45 minutes Jeet Tavares MD Work Phone: [facility] [place] Comment on above: Echogenic focus of h eart of fetus affecting antepartum care of mother, single or unspecified fetus (Primary Dx); Low lying placenta, antepartum; Suspected condition not found; Family history of congenital heart defect; 23 weeks gestation of Start: 04-16-2024 End: 04-16-2024 ambulatory [facility] Start: 04-11-2024 End: 04-11-2024 Chart abstracting Jeet Tavares MD Work Phone: [facility] Start: 04-03-2024 End: 04-03-2024 flow sheet Jorge [...] External Department Unsolicited Start: 03-05-2024 End: 03-05-2024 Patient encounter procedure Bibiana MONROY Work Phone: [facility] Work Phone: Start: 03-05-2024 End: 03-05-2024 Periodic preventive med est patient 18-39 yrs Bibiana MONROY Work Phone: [facility] Comment on above: Well woman exam with routine gynecological exam; Second trimester ; Vaginal discharge; STD exposure; Screening, , for anatomic survey Start: 03-05-2024 End: 03-05-2024 ambulatory BIBIANA ALCANTARA Not Available Start: 03-05-2024 End: 03-05-2024 Bamboo flowsheet Bibiana MONROY Work Phone: [facility] Start: 03-05-2024 End: 03-09-2024 Bamboo flowsheet Bibiana MONROY Work Phone: [facility] Start: 03-05-2024 End: 03-09-2024 Clinisync Result Encounter Bibiana MONROY Work Phone: [facility] Unsolicited Start: 03-05-2024 End: 03-07-2024 External Result Encounter Bibiana MONROY Work Phone: [facility] Unsolicited Start: 02-06-2024 End: 02-06-2024 flow sheet Jorge Luis Wilkes DO Work Phone: [facility] Comment on above: Second trimester pre gnancy Start: 02-06-2024 End: 02-06-2024 ambulatory JORGE LUIS WILKES Not Available Start: 01-06-2024 End: 01-09-2024 ambulatory BIBIANA ALCANTARA Not Available Start: 12-07-2023 End: 12-07-2023 ambulatory EMILY D DOLCE Not Available Start: 11-16-2023 End: 11-16-2023 ambulatory EMILY D DOLCE Not Available Start: 10-26-2023 End: 10-26-2023 ambulatory EMIYL D DOLCE Not Available Start: 10-12-2023 End: 10-12-2023 ambulatory EMILY D DOLCE Not Available Start: 03-29-2022 End: 03-30-2022 ambulatory [...] (routine) without abnormal findings DR RODNEY CAPUTO [facility] Start: 08-26-2021 End: 08-26-[address] RODNEY CAPUTO Facility:[facility] Start: 08-26-2021 End: 08-26-2021 Encounter for gynecological examination (general) (routine) without abnormal findings DR RODNEY CAPUTO Facility:[facility] Start: 08-11-2021 End: 08-12-[address] RODNEY CAPUTO Facility:[facility] Start: 06-23-2021 End: 06-24-[address] RODNEY CAPUTO Facility:[facility] Start: 06-15-2021 End: 06-16-[address] RODNEY CAPUTO Facility:[facility] Procedures Date Procedure Procedure Detail Performing Clinician Start: 07-11-2024 Urnls dip stick/tabl et rgnt non-auto w/o micrscp Bibiana MONROY Work Phone: Start: 06-27-2024 Urnls dip stick/tabl et rgnt non-auto w/o micrscp Jorge Luis Wilkes DO Work Phone: Start: 06-06-2024 Urnls dip stick/tabl et rgnt non-auto w/o micrscp Bibiana MONROY Work Phone: Start: 05-21-2024 Urnls dip stick/tabl et rgnt non-auto w/o micrscp Jorge Luis Katrin DO Work Phone: Start: 05-07-2024 Urnls dip stick/tabl et rgnt non-auto w/o micrscp Bibiana MONROY Work Phone: Start: 05-05-2024 GLUCOSE TOLERANCE 3 HOUR Jorge Luis Katrin DO Work Phone: Start: 04-28-2024 ALL CBC WITH AUTO DIFF Jorge Luis Katrin DO Work Phone: Start: 04-03-2024 Urnls dip stick/tabl et rgnt non-auto w/o micrscp Jorge Luis Katrin DO Work Phone: Start: 03-28-2024 AFP, SERUM, OPEN SPI NA BIFIDA Bibiana MONROY Work Phone: Start: 03-05-2024 Urnls dip stick/tabl et rgnt non-auto w/o micrscp Bibiana MONROY Work Phone: Start: 03-05-2024 IGP,APTIMA HPV,AGE GDLN Bibiana MONROY Work Phone: Start: 03-05-2024 Microscopic observat ion [Identifier] in Cervix by Cyto stain Bibiana MONROY Work Phone: Start: 03-05-2024 Cytp cerv/vag auto t hin layer prep mnl screen Jorge Luis Katrin DO Work Phone: Start: 03-05-2024 URETHRITIS/DISCHARGE PLUS VAGINITIS (HTRX) Bibiana MONROY Work Phone: Start: 02-06-2024 Urnls dip stick/tabl et rgnt non-auto w/o micrscp Jorge Luis Katrin DO Work Phone: Start: 01-27-2024 Antibody screen Jeet [...] Treatment Date Care Activity Detail Author Start: 03-05-2029 Screening for malign ant neoplasm of cervix [facility] Start: 04-16-2025 Adult BMI Screening Adult BMI Screen ing [facility] Start: 04-16-2025 Tobacco Screening Tobacco Screening [facility] Start: 07-18-2024 End: 07-18-2024 Patient encounter procedure 07/18/2024 3:50 PM EST Routine [facility] [address] [id number] Jorge Luis Wilkes, [address], [place] [id number] [facility] Start: 07-11-2024 End: 07-11-2024 Patient encounter procedure [facility] Comment on above: Arrived Start: 06-27-2024 End: 06-27-2024 Patient encounter procedure 06/27/2024 3:40 PM EST Routine [facility] [address] [facility] [place] [id number] Jorge Luis Wilkes, [address] [place] [address] [facility] Start: 06-27-2024 End: 06-27-2025 US for US OB follow up transabdominal approach Imaging Routine Excessive growth affecting management of , antepartum, single or unspecified fetus Expected: 06/27/2024, Expires: 06/27/2025 [facility] Work Phone: Comment on above: Expected: 06/27/2024 , Expires: 06/27/2025 Start: 05-21-2024 End: 05-21-2024 Patient encounter procedure 05/21/2024 3:50 PM EST Routine [facility] [address] [facility] [place] [address] Jorge Luis Wilkes, DO [address] [facility] [place] [address] [facility] Start: 05-15-2024 End: 05-15-2024 Patient encounter procedure 05/15/2024 10:15 AM EST Appointment [place] [facility] [address] [place] [address] [place] [facility] Start: 05-07-2024 End: 05-07-2024 Patient encounter procedure [facility] Comment on above: Arrived Start: 04-16-2024 End: 04-16-2025 US MFM with or without consult US MFM with or without consult Imaging Routine Echogenic focus of heart of fetus affecting antepartum care of mother, single or unspecified fetus Low lying placenta, antepartum Expected: 04/16/2024, Expires: 04/16/2025 [facility] Work Phone: Comment on above: Expected: 04/16/2024 , Expires: 04/16/2025 Start: 04-16-2024 End: 04-16-2024 Patient encounter procedure [facility] [place] Start: 04-04-2024 End: 04-04-2024 Patient encounter procedure 04/04/2024 3:10 PM EDT Routine [facility] [address] [facility] [place] [id number] Jorge Luis Wilkes, DO [address] [place], [place] [id number] [facility] Start: 04-03-2024 End: 04-03-2024 Patient encounter procedure 04/03/2024 2:20 PM EDT Routine [facility] [address] [facility] [place] [phone] Katrin Jorge Luis, DO [address] [facility] [place] [address] Arrived [facility] Comment on above: Arrived Start: 04-03-2024 End: 04-03-2025 CBC panel - Blood by Automated count CBC Lab Routine Diabetes mellitus screening Expected: 04/03/2024 (Approximate), Expires: 04/03/2025 [facility] Comment on above: Expected: 04/03/2024 (Approximate), Expires: 04/03/2025 Start: 04-03-2024 End: 04-03-2025 Measurement of glucose 1 hour after glucose challenge for glucose tolerance test Glucose tolerance, 1 hour Lab Routine Diabetes mellitus screening Expected: 04/03/2024 (Approximate), Expires: 04/03/2025 [facility] Comment on above: Expected: 04/03/2024 (Approximate), Expires: 04/03/2025 Start: 04-03-2024 End: 04-03-2025 US for US OB INCOMPLETE ANATOMY Imaging Routine Encounter for follow-up ultrasound of anatomy Expected: 04/03/2024 (Approximate), Expires: 04/03/2025 [facility] Work Phone: Comment on above: Expected: 04/03/2024 (Approximate), Expires: 04/03/2025 Start: 03-05-2024 End: 03-05-2024 Patient encounter procedure [facility] Comment on above: Arrived Start: 03-05-2024 End: 09-02-2024 Alpha fetoprotein, maternal Alpha fetoprotein, maternal Lab Routine Second trimester Expected: 03/05/2024 (Approximate), Expires: 09/02/2024 [facility] Comment on above: Expected: 03/05/2024 (Approximate), Expires: 09/02/2024 Start: 03-05-2024 End: 03-05-2025 US for US OB ANATOMY SINGLE W US OB CERVICAL LENGTH Imaging Routine Screening, , for anatomic survey Expected: 03/05/2024 (Approximate), Expires: 03/05/2025 [facility] Comment on above: Expected: 03/05/2024 (Approximate), Expires: 03/05/2025 Start: 02-19-2024 Influenza vaccination P [facility] Start: 10-15-2021 Screening for malign ant neoplasm of cervix [facility] Start: 10-15-2012 Screening for malign ant neoplasm [...] Tobacco Screening Tobacco Screening [facility] CHLAMYDIA TRACHOMATI S (GENITO/STI) CHLAMYDIA TRACHOMATIS (GENITO/STI) Lab Routine STD exposure Ordered: 03/05/2024 [facility] Comment on above: Ordered: 03/05/2024 Cytology Cervical or vaginal smear or scraping study Pap Smear Pathology and Cytology Routine Well woman exam with routine gynecological exam Ordered: 03/05/2024 [facility] Work Phone: Comment on above: Ordered: 03/05/2024 Human papilloma viru s DNA [Presence] in Unspecified specimen by Probe with amplification HPV DNA probe, amplified Microbiology Routine Well woman exam with routine gynecological exam Ordered: 03/05/2024 [facility] Comment on above: Ordered: 03/05/2024 Neisseria gonorrhoea e DNA [Presence] in Unspecified specimen by RIGOBERTO with probe detection Neisseria gonorrhea DNA probe, direct Lab Routine STD exposure Ordered: 03/05/2024 [facility] Comment on above: Ordered: 03/05/2024 SURESWAB(R) ADVANCED VAGINITIS PLUS, TMA SURESWAB(R) ADVANCED VAGINITIS PLUS, TMA Pathology and Cytology Routine Vaginal discharge Ordered: 03/05/2024 [facility] Comment on above: Ordered: 03/05/2024 Payers Date Payer Category Payer Private Health Insurance [employer] [id number] 2017 Unknown [employer] [id number] 2017-Present [address] [place] [address] [id number] 1991 Unknown [id number] 2.16840.1.039099.3.579.2. 593 1991 Unknown [id number] 2.16.840.1.076568.3.579.2. 593 1991 Unknown [id number] 2.16.840.1.334204.3.579.2. 593 1991 Unknown [id number] 2.16.840.1.335639.3.579.2. 593 1991 Unknown [id number] 2.16.840.1.586592.3.579.2. 593 1991 Unknown [id number] 2.16.840.1.476997.3.579.2. 593 1991 Unknown [id number] 2.16.840.1.947059.3.579.2. 593 1991 Unknown [id number] 2.16.840.1.046292.3.579.2. 593 1991 Unknown [id number] 2.16.840.1.894011.3.579.2. 593 1991 Unknown [id number] 2.16.840.1.756886.3.579.2. 593 1991 Unknown [id number] 2.16.840.1.759941.3.579.2. 593 1991 Unknown [id number] 2.16840.1.463281.3.579.2. 593 1991 Unknown [id number] 2.16840.1.759374.3.579.2. 593 1991 Unknown [id number] 2.840.1.145854.3.579.2. 593 1991 Unknown [id number] 2.16840.1.715500.3.579.2. 593 1991 Unknown [id number] 2.840.1.323418.3.579.2. 1286 1991 Unknown [id number] 2.840.1.459728.3.579.2. 1286 1991 Unknown [id number] 2.840.1.649444.3.579.2. 128 1991 Unknown [id number] 2.840.1.000297.3.579.2. 9 1991 Unknown [id number] 2.840.1.068319.3.579.2. 1259 1991 Unknown [id number] 2.840.1.037631.3.579.2. 1259 1991 Unknown [id number] 2.840.1.491025.3.579.2. 1259 1991 Unknown [id number] 2.16840.1.176868.3.579.2. 1259 1991 Unknown [id number] 2.840.1.953058.3.579.2. 1259 1991 Unknown [id number] 2.840.1.468186.3.579.2. 9 1991 Unknown [id number] 2.16.840.1.452265.3.579.2. 1258 1991 Unknown [id number] 2.16.840.1.854996.3.579.2. 9 1991 Unknown [id number] 2.16.840.1.620313.3.579.2. 1258 1991 Unknown [id number] 2.16.840.1.304774.3.579.2. 1258 1991 Unknown [id number] 2.16.840.1.242845.3.579.2. 1258 1991 Unknown [id number] 2.16.840.1.187420.3.579.2. 1258 1991 Unknown [id number] 2.16.840.1.979414.3.579.2. 9 1959 Self-pay 1959 Unknown [id number] [employer] - [facility] [employer] [id number] Unknown [id number] 2.16.840.1.925874.3.579.2. 593 Social History Date Type Detail Facility Start: 10-12-2023 End: 04-11-2024 Tobacco smoking status NHIS Never smoked tobacco [facility] Start: 10-12-2023 End: 04-11-2024 Tobacco use and exposure Smokeless tobacco non-user [facility] Start: 02-06-2024 End: 05-21-2024 Alcoholic beverage intake Ex-drinker (finding) [facility] Start: 12-07-2023 End: 02-06-2024 Alcoholic beverage intake [facility] Start: 12-07-2023 End: 04-16-2024 Tobacco use panel [facility] Start: 11-20-2023 [facility] Start: 1990 Sex assigned at Not on file [facility] Start: 04-10-2024 Sex Female (finding) [facility] Within the past 12 months we worried whether our food would run out before we got money to buy more. Never True [facility] Goals Date Patient Goal Desired Activity /State Personal health goal Clinical Notes 02-06-2024 to 07-11-2024 ELIANA Candelaria - 07/11/2024 3:50 PM Minda Uriarte LPN - 06/27/2024 3:40 PM ELIANA Mesa - 06/06/2024 3:50 PM ELIANA Mesa - 05/21/2024 3:50 PM ELIANA [place]a - 05/07/2024 4:00 PM EST Note Date & Type Note Facility 07-11-2024 History of Present illness Narrative Reason for Appointment: Patient ID: Cindy Rocha is a 33 y.o. female who presents for Routine Visit Patient presents today for Return OB appointment. MEDICATIONS Current Outpatient Medications Medication Instructions omeprazole (PRILOSEC) 20 mg, Oral, Daily before breakfast, Do not crush or chew. Vit-Fe Fumarate-FA ( Vitamins) 28-0.8 MG tablet 1 tablet, Oral, Daily ALLERGIES Allergies Allergen Reactions Penicillin G Rash Penicillins Rash PROBLEMS Active Ambulatory Problems Diagnosis Date Noted No Active Ambulatory Problems Resolved Ambulatory Problems Diagnosis Date Noted No Resolved Ambulatory Problems No Additional Past Medical History HISTORY PAST MEDICAL HISTORY SOCIAL HISTORY No past medical history on file. Social History Tobacco Use Smoking status: Never Smokeless tobacco: Never Vaping Use Vaping status: Never Used Substance Use Topics Alcohol use: Not Currently Alcohol/week: 4.0 standard drinks of alcohol Drug use: Never FAMILY HISTORY Family History Problem Relation Name Age of Onset Arthritis Mother Melita Lokesh Diabetes Mother Melita Lokesh Rheum arthritis Mother Melita Lokesh Hypertension Father Bryant Campa SURGICAL HISTORY Past [...] Exam Constitutional: Appearance: Normal appearance. She is normal weight. HENT: Head: Normocephalic. Cardiovascular: Rate and Rhythm: Normal rate. Pulses: Normal pulses. Pulmonary: Effort: Pulmonary effort is normal. Breath sounds: Normal breath sounds. Abdominal: Palpations: Abdomen is soft. Musculoskeletal: General: Normal range of motion. Neurological: General: No focal deficit present. Mental Status: She is alert and oriented to person, place, and time. Psychiatric: Mood and Affect: Mood normal. Behavior: Behavior normal. Thought Content: Thought content normal. Judgment: Judgment normal. Vitals and nursing note reviewed. Vitals: Estimated body mass index is 29.15 kg/m as calculated from the following: Height as of 12/07/23: 5' 4 . Weight as of this encounter: 169 lb 12.8 oz. BP: 112/74 Patient's last menstrual period was 11/06/2023. ASSESSMENT & PLAN ICD-10-CM 1. Third trimester Z34.93 POCT urinalysis dipstick manually resulted 2. 35 weeks gestation of Z3A.35 Return OB: Patient presents today for a routine obstetrics appointment. Patient is currently 35w3d . Patient states she is doing well states omeprazole helping and feeling much better.Patient has verbalizes frequent movement. labor precautions was discussed/given and patient was instructed to perform kick counts three times a day. Orders Placed This Encounter Procedures POCT urinalysis dipstick manually resulted Follow Up: Patient is to return to office in 1 week for routine OB appointment. Documented by ELIANA Candelaria on behalf of: ELIANA Candelaria documented in this encounter [facility] 06-27-2024 History of Present illness Narrative Reason for Appointment: Patient ID: [...] History HISTORY PAST MEDICAL HISTORY SOCIAL HISTORY No past medical history on file. Social History Tobacco Use Smoking status: Never [...] Eyes: Negative. Respiratory: Negative. Cardiovascular: Negative. Gastrointestinal: Positive for constipation, nausea and vomiting. Genitourinary: Negative. Musculoskeletal: Negative. Skin: Negative. Neurological: [...] nursing note reviewed. Exam conducted with a information systems audit manager present. Vitals: Estimated body mass index is 27.98 kg/m as calculated from the following: Height as of 12/07/23: 5' 4 . Weight as of this encounter: 163 lb. BP: 112/70 Patient's last menstrual period was 11/06/2023. ASSESSMENT & PLAN ICD-10-CM 1. Third trimester Z34.93 POCT urinalysis dipstick manually resulted 2. 33 weeks gestation of Z3A.33 Return OB: Patient presents today for a routine obstetrics appointment. Patient is currently 33w3d . Patient states she is doing well but has complaints of being tired due to current . Patient has verbalizes frequent movement. labor precautions was discussed/given and patient was instructed to perform kick counts three times a day. Pt has heartburn and complaints of nausea- rx for omeprazole and reglan faxed to pharmacy. Ordered ultrasound pt to have scheduled with next visit. Orders Placed This Encounter Procedures US OB follow up transabdominal approach POCT urinalysis dipstick manually resulted Follow Up: Patient is to return to office in 2 week for routine OB appointment. Documented by Ivana Uriarte LPN on behalf of: Jorge Luis Wilkes DO documented in this encounter [facility] 06-06-2024 History of Present illness Narrative Reason for Appointment: Patient ID: [...] History HISTORY PAST MEDICAL HISTORY SOCIAL HISTORY No past medical history on file. Social History Tobacco Use Smoking status: Never Smokeless tobacco: Never Vaping Use Vaping status: Never Used Substance Use Topics Alcohol use: Not Currently Alcohol/week: 4.0 standard drinks of alcohol Drug use: Never FAMILY HISTORY Family History Problem Relation Name Age of Onset Arthritis Mother Melita Lokesh Diabetes Mother Melita Campa Rheum arthritis Mother [...] Exam Constitutional: Appearance: Normal appearance. She is normal weight. HENT: Head: Normocephalic. Cardiovascular: Rate and Rhythm: Normal rate. Pulses: Normal pulses. Pulmonary: Effort: Pulmonary effort is normal. Breath sounds: Normal breath sounds. Abdominal: Palpations: Abdomen is soft. Musculoskeletal: General: Normal range of motion. Neurological: General: No focal deficit present. Mental Status: She is alert and oriented to person, place, and time. Psychiatric: Mood and Affect: Mood normal. Behavior: Behavior normal. Thought Content: Thought content normal. Judgment: Judgment normal. Vitals and nursing note reviewed. Vitals: Estimated body mass index is 27.09 kg/m as calculated from the following: Height as of 12/07/23: 5' 4 . Weight as of 05/21/24: 157 lb 12.8 oz. BP: Patient's last menstrual period was 11/06/2023. ASSESSMENT & PLAN ICD-10-CM 1. Third trimester Z34.93 POCT urinalysis dipstick manually resulted 2. 30 weeks gestation of Z3A.30 Return OB: Patient presents today for a routine obstetrics appointment. Patient is currently 30w3d . Patient states she is doing well but has complaints of being tired due to current . Patient has verbalizes frequent movement. labor precautions was discussed/given and patient was instructed to perform kick counts three times a day. Orders Placed This Encounter Procedures POCT urinalysis dipstick manually resulted Follow Up: Patient is to return to office in 2 week for routine OB appointment. Documented by Maggie Prieto MA on behalf of: ELIANA Candelaria documented in this encounter [facility] 05-21-2024 History of Present illness Narrative Reason for Appointment: Patient ID: [...] Exam Constitutional: Appearance: Normal appearance. She is normal weight. HENT: Head: Normocephalic. Cardiovascular: Rate and Rhythm: Normal rate. Pulses: Normal pulses. Pulmonary: Effort: Pulmonary effort is normal. Breath sounds: Normal breath sounds. Abdominal: Palpations: Abdomen is soft. Musculoskeletal: General: Normal range of motion. Neurological: General: No focal deficit present. Mental Status: She is alert and oriented to person, place, and time. Psychiatric: Mood and Affect: Mood normal. Behavior: Behavior normal. Thought Content: Thought content normal. Judgment: Judgment normal. Vitals and nursing note reviewed. Vitals: Estimated body mass index is 27.09 kg/m as calculated from the following: Height as of 12/07/23: 5' 4 . Weight as of this encounter: 157 lb 12.8 oz. BP: 106/64 Patient's last menstrual period was 11/06/2023. ASSESSMENT & PLAN ICD-10-CM 1. 28 weeks gestation of Z3A.28 POCT urinalysis dipstick manually resulted 2. Third trimester Z34.93 POCT urinalysis dipstick manually resulted Return OB: Patient presents today for a routine obstetrics appointment. Patient is currently 28w1d . Patient states she is doing well but has complaints of being tired due to current . Patient has verbalizes frequent movement. labor precautions was discussed/given and patient was instructed to perform kick counts three times a day. Orders Placed This Encounter Procedures POCT urinalysis dipstick manually resulted Follow Up: Patient is to return to office in 2 week for routine OB appointment. Documented by ELIANA Candelaria on behalf of: Jorge Luis Wilkes DO documented in this encounter [facility] 05-07-2024 History of Present illness Narrative Reason for Appointment: Patient ID: [...] History HISTORY PAST MEDICAL HISTORY SOCIAL HISTORY No past medical history on file. Social History Tobacco Use Smoking status: Never Smokeless tobacco: Never Vaping Use Vaping status: Never Used Substance Use Topics Alcohol use: Not Currently Alcohol/week: 4.0 standard drinks of alcohol Drug use: Never FAMILY HISTORY Family History Problem Relation Name Age of Onset Arthritis Mother Melita Campa Diabetes Mother Melita Campa Rheum arthritis Mother Melita [place] Hypertension Father Bryantkeisha Campa SURGICAL HISTORY Past Surgical History: Procedure [...] Exam Constitutional: Appearance: Normal appearance. She is normal weight. HENT: Head: Normocephalic. Cardiovascular: Rate and Rhythm: Normal rate. Pulses: Normal pulses. Pulmonary: Effort: Pulmonary effort is normal. Breath sounds: Normal breath sounds. Abdominal: Palpations: Abdomen is soft. Musculoskeletal: General: Normal range of motion. Neurological: General: No focal deficit present. Mental Status: She is alert and oriented to person, place, and time. Psychiatric: Mood and Affect: Mood normal. Behavior: Behavior normal. Thought Content: Thought content normal. Judgment: Judgment normal. Vitals and nursing note reviewed. Vitals: Estimated body mass index is 26.09 kg/m as calculated from the following: Height as of 12/07/23: 5' 4 . Weight as of this encounter: 152 lb. BP: 112/68 Patient's last menstrual period was 11/06/2023. ASSESSMENT & PLAN ICD-10-CM 1. 26 weeks gestation of Z3A.26 POCT urinalysis dipstick manually resulted 2. Second trimester Z34.92 3. Elevated glucose tolerance test R73.09 CANCELED: Glucose tolerance, 3 hours CANCELED: Glucose tolerance, 3 hours Return OB: Patient presents today for a routine obstetrics appointment. Patient is currently 26w1d . Patient states she is doing well but has complaints of being tired due to current . Patient has verbalizes frequent movement. labor precautions was discussed/given and patient was instructed to perform kick counts three times a day. Orders Placed This Encounter Procedures POCT urinalysis dipstick manually resulted Pt did her 3 hour on 05/05/2024 and passed. Pt was scheduled to go back to [facility] in 4 weeks for a f/up US visit for Echo focus of fetus. Pt states she is unable to make the appt and would like to have the US done here in [place]. Follow Up: Patient is to return to office in 2 week for routine OB appointment. Documented by Maggie Prieto MA on behalf of: ELIANA Candelaria documented in this encounter [facility] 04-16-2024 History of Present illness Narrative [facility] Consult Note Reason For Consult: HPI: Cindy Rocha is a 33 y.o. @ 23w1d who presented for consultation from Dr. Wilkes, Jorge Luis Ray DO regarding Chief Complaint Patient presents with [...] Start Date End Date Taking? Authorizing Provider [id number] fumarate-FA 28-800 mg-mcg tablet Take 1 tablet [...] continue with routine care in your office [facility], the CDC, and other organizations representing maternal and public health professionals recommend that , , and lactating people and those considering receive the COVID-19 vaccination. Vaccination is the best method to reduce maternal and complications of SARS-CoV-2 infection. This document was created with [employer] technology. Though I make every effort to review the dictation as it is transcribed, on occasion the spoken word can be misinterpreted by the technology leading to inappropriate words, phrases, or sentences. This note is addressed to the requesting provider as a consultation for clinical guidance. Specific medical abbreviations are occasionally used and those are generally approved by the [place]?Board of?Obstetrics and?Gynecology?as well as?Steve s abbreviations. The above plan of care was based solely on the diagnoses for which a consultation was requested. ?More frequent testing may be indicated based on her other medical/obstetrical conditions. The management of other or medical conditions is beyond the scope of requested consultation and will continue to be followed by the primary donor recruiter or primary care provider. Thank you for [...] procedures Referring and communicating with other health day care director (not separately reported) Documenting clinical information in [...] yes Have you been seen here at [facility] in a previous ? no Recent ER visits or hospitalizations? no Bring blood sugar log or meter with you today? (Please bring them with you for every visit at [facility]) n/a Flu vaccine (Apr-August)? no Any concerns that you would like me to mention to the provider today? no documented in this encounter [facility] 04-03-2024 History of Present illness Narrative Reason for Appointment: Patient ID: [...] Name Age of Onset Arthritis Mother Melita Harlingen Diabetes Mother Melita Harlingen Rheum arthritis Mother Melita Lokesh Hypertension Father Bryant Campa SURGICAL HISTORY Past [...] nursing note reviewed. Exam conducted with a information systems audit manager present. Vitals: Estimated body mass index is [...] Luis Wilkes DO documented in this encounter [facility] 03-05-2024 History of Present illness Narrative Reason for Appointment: Patient ID: Cindy Rocha is a 33 y.o. female who presents for STI Screening, Routine Visit, and Well Women Visit Patient presents today for Annual Exam. and Return OB appointment. MEDICATIONS Current Outpatient Medications Medication Instructions Vit-Fe Fumarate-FA ( Vitamins) 28-0.8 MG tablet 1 tablet, Oral, Daily ALLERGIES Allergies Allergen Reactions Penicillin G Rash Penicillins Rash PROBLEMS Active Ambulatory Problems Diagnosis Date Noted No Active Ambulatory Problems Resolved Ambulatory Problems Diagnosis Date Noted No Resolved Ambulatory Problems No Additional Past Medical History HISTORY PAST MEDICAL HISTORY SOCIAL HISTORY No past medical history on file. Social History Tobacco Use Smoking status: Never [...] Objective: Physical Exam Constitutional: Appearance: Normal appearance. Genitourinary: Right Adnexa: not tender and no mass present. Left Adnexa: not tender and no mass present. No cervical discharge. Breasts: Breasts are soft. Right: Normal. Left: Normal. HENT: Head: Normocephalic. Nose: Nose normal. Mouth/Throat: Mouth: Mucous membranes are moist. Cardiovascular: Rate and Rhythm: Normal rate. Pulmonary: Effort: Pulmonary effort is normal. Abdominal: General: Bowel sounds are normal. Palpations: Abdomen is soft. Musculoskeletal: General: Normal range of motion. Cervical back: Normal range of motion. Neurological: General: No focal deficit present. Mental Status: She is alert. Skin: General: Skin is warm and dry. Psychiatric: Mood and Affect: Mood normal. Vitals and nursing note reviewed. Exam conducted with a information systems audit manager present. Vitals: Estimated body mass index is 23.54 kg/m as calculated from the following: Height as of 12/07/23: 5' 4 . Weight as of this encounter: 137 lb 1.9 oz. BP: 112/74 Patient's last menstrual period was 11/06/2023. ASSESSMENT & PLAN ICD-10-CM 1. Well woman exam with routine gynecological exam Z01.419 Pap Smear HPV DNA probe, amplified 2. Second trimester Z34.92 POCT urinalysis dipstick manually resulted Alpha fetoprotein, maternal Alpha fetoprotein, maternal 3. Vaginal discharge N89.8 SURESWAB(R) ADVANCED VAGINITIS PLUS, TMA 4. STD exposure Z20.2 CHLAMYDIA TRACHOMATIS (GENITO/STI) Neisseria gonorrhea DNA probe, direct 5. Screening, , for anatomic survey Z36.89 US OB ANATOMY SINGLE W US OB CERVICAL LENGTH Return OB/Annual Exam: Patient presents today for an annual exam/routine obstetrics appointment. Patient is currently 17w1d . Patient is doing well and states she has no complaints. Pap/cultures was obtained without difficulty and patient was given [facility] order to have obtained. Orders Placed This Encounter Procedures HPV DNA probe, amplified US OB ANATOMY SINGLE W US OB CERVICAL LENGTH CHLAMYDIA TRACHOMATIS (GENITO/STI) Neisseria gonorrhea DNA probe, direct Alpha fetoprotein, maternal POCT urinalysis dipstick manually resulted Follow Up: Patient is to return to our office in 4 weeks for routine OB appointment Documented by Gemma Woodson LPN on behalf of: ELIANA Candelaria documented in this encounter [facility] 02-06-2024 History of Present illness Narrative Reason for Appointment: Patient ID: [...] SYSTEMS Review of Systems: Review of Systems All other systems reviewed and are negative. OBJECTIVE Objective: Physical Exam Constitutional: Appearance: Normal [...] nursing note reviewed. Exam conducted with a information systems audit manager present. Vitals: Estimated body mass index is 23.25 kg/m as calculated from the following: Height as of 12/07/23: 5' 4 . Weight as of this encounter: 135 lb 7 oz. BP: 112/74 Patient's last menstrual period was 11/06/2023. ASSESSMENT & PLAN ICD-10-CM 1. Second trimester Z34.92 POCT urinalysis dipstick manually resulted New OB: Patient presents today for 1st time obstetrics appointment with provider. Patient is currently 13w1d . Patients history has been reviewed in great detail including any potential risks. Patient stated she currently has no complaints. Expectations throughout regarding labs, ultrasounds, and appointments have been discussed with the patient in detail. It was reiterated that the patient is to drink 6-8 glasses of water a day, eat 6 small meals a day, do not consume raw or undercooked meat, and stay away from [facility]. Patient has been consulted regarding any further do's and don'ts of . Patient voiced understanding and all questions and concerns were answered. Orders Placed This Encounter Procedures POCT urinalysis dipstick manually resulted Follow Up: Patient is to return in 4 weeks for routine OB appointment. Documented by Pooja Mendez LPN on behalf of: Jorge Luis Wilkes DO documented in this encounter [facility] Evaluation note Diagnosis 21 weeks gestation of Second trimester state, incidental Encounter for follow-up ultrasound of anatomy Diabetes mellitus screening Screening for diabetes mellitus [facility] Diagnosis Echogenic focus of heart of fetus affecting antepartum care of mother, single or unspecified fetus- Primary Low lying placenta, antepartum Suspected condition not found Observation for unspecified suspected condition Family history of congenital heart defect 23 weeks gestation of [facility] Diagnosis 26 weeks gestation of Second trimester state, incidental Elevated glucose tolerance test Impaired glucose tolerance test [facility]* Diagnosis 28 weeks gestation of Third trimester state, incidental [facility]* Diagnosis Well woman exam with routine gynecological exam Routine gynecological examination Second trimester state, incidental Vaginal discharge Leukorrhea, not specified as infective STD exposure Screening, , for anatomic survey Encounter for anatomic survey [facility] Diagnosis Second trimester state, incidental [facility] Diagnosis Third trimester state, incidental 30 weeks gestation of [facility]* Diagnosis Third trimester state, incidental 33 weeks gestation of Heartburn during in third trimester Excessive growth affecting management of , antepartum, single or unspecified fetus [facility]* Diagnosis Third trimester state, incidental 35 weeks gestation of documented in this [facility] HealthcareInstructionsNot on filedocumented in this encounterPro[facility] SystemInstructionsNot on filedocumented in this encounterProLuther[facility] Summary Purpose Family History No Family [...] and content) DATE CREATED AUTHOR 06/06/2021 Maged Vázquez [facility] DATE CREATED AUTHOR AUTHOR'S ORGANIZ ATION 05/12/2022 [facility] DATE CREATED AUTHOR AUTHOR'S ORGANIZ ATION 04/17/2024 [facility] DATE CREATED AUTHOR AUTHOR'S ORGANIZ ATION 05/17/2024 [facility] DATE CREATED AUTHOR AUTHOR'S ORGANIZ ATION 07/13/2024 [facility] EPIC Care Teams (unrecognized sec tion and content) 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 Specialty Start Date End Date Tamir Fuentes MD [address] [place] [address] PCP - General Family Medicine 10/12/23 Merlene Choe MD [address] [place] [address] Referring Physician Internal Medicine 10/12/23 St[employer] 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 Specialty Start Date End Date Tamir Fuentes MD [address] [place] [address] PCP - General Family Medicine 10/12/23 Merlene Choe MD [address] [place] [address] Referring Physician Internal Medicine 10/12/23 St[employer] 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 Specialty Start Date End Date Tamir Fuentes MD [address] [place] [address] PCP - General Family Medicine 10/12/23 Bibiana Alcantara PA [address] [place] [address] [place] [address] PCP - Medical [place] [employer] 06/20/17 06/19/99 Merlene Choe MD [address] [place] [id number] Referring Physician Internal Medicine 10/12/23 St[employer] 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 Specialty Start Date End Date Tamir Fuentes MD [address] [place] [address] PCP - General Family Medicine 10/12/23 Bibiana Alcantara PA [address] [place] [address] [place] [address] PCP - Medical [place] [employer] 06/20/17 06/19/99 Merlene Choe MD [address] [place] [id number] Referring Physician Internal Medicine 10/12/23 [employer] 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 Specialty Start Date End Date Tamir Fuentes MD [address] [place] [address] PCP - General Family Medicine 10/12/23 Bibiana Alcantara PA [address] [place] [address] [place] [address] PCP - Medical [place] [employer] 06/20/17 06/19/99 Merlnee Choe MD [address] [place] [phone] Referring Physician Internal Medicine 10/12/23 St[employer] 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 Specialty Start Date End Date Tamir Fuentes MD [address] [place], [place] [id number] PCP - General Family Medicine 10/12/23 Bibiana Alcantara PA [address] [place] [address] [address] [place], [place] [id number] PCP - Medical [place] [employer] 06/20/17 06/19/99 Merlene Choe MD [address] [place] [address] Referring Physician Internal Medicine 10/12/23 Stem 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 Specialty Start Date End Date Tamir Fuentes MD [address] [place] [id number] PCP - General Family Medicine 10/12/23 Merlene Choe MD [address] [place] [address] Referring Physician Internal Medicine 10/12/23 Stem 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 Specialty Start Date End Date Tamir Fuentes MD [address] [place] [id number] PCP - General Family Medicine 10/12/23 Merlene Choe MD [address] [place] [address] Referring Physician Internal Medicine 10/12/23 Stem 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 Specialty Start Date End Date Tamir Fuentes MD [address] [place], [place] [id number] PCP - General Family Medicine 10/12/23 Bibiana Alcantara PA [address] [place] [address] [place] [address] PCP - Medical [place] [employer] 06/20/17 06/19/99 Merlene Choe MD [address] [place] [place] [address] Referring Physician Internal Medicine 10/12/23 Stem 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 Specialty Start Date End Date Tamir Fuentes MD [address] [place] [place] [address] PCP - General Family Medicine 10/12/23 Bibiana Alcantara PA [address] [place] [address] [address] [place], [id number] PCP - Medical [place] [employer] 06/20/17 06/19/99 Merlene Choe MD [address] [place] [address] Referring Physician Internal Medicine 10/12/23 Stem 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 Specialty Start Date End Date Tamir Fuentes MD [address] [place] [address] PCP - General Family Medicine 10/12/23 Bibiana Alcantara PA [address] [place] [address] [place] [address] PCP - Medical [place] [employer] 06/20/17 06/19/99 Merlene Choe MD [address] [place] [address] Referring Physician Internal Medicine 10/12/23 Reason for Visit (unrecogniz ed section and content) Reason Comments Routine Visit Reason Comments EIF Reason Comments STI Screening Routine Visit Well Women Visit FOR RECORDS PERTAINING TO PATIENTS WHO [...] BE BASED ON THE PRIMARY CLINICAL RECORDS. [facility] [employer] provides no warranty or guarantee of the accuracy or completeness of information in this document.
[2024-07-16 20:34] LABS: Bilirubin Urine NEGATIVE (NEGATIVE); Blood Urine NEGATIVE (NEGATIVE); Clarity Urine CLEAR (CLEAR); Color Urine LT. YELLOW (YELLOW); Glucose Urine UA NEGATIVE (NEGATIVE); Ketones Urine NEGATIVE (NEGATIVE); Leukocyte Esterase Urine NEGATIVE (NEGATIVE); Nitrite Urine NEGATIVE (NEGATIVE); Protein Urine NEGATIVE (NEG/TRACE); Specific Gravity Urine <=1.005 (1.005-1.025); Urobilinogen Urine 0.2 EU/dL (0.2-1.0); pH Urine 6.5 (5.0-9.0)
[2024-07-16 20:35] LABS: Urine Microscopic Indicated NO
[2024-07-16 20:42] LABS: Amnisure NEGATIVE (NEGATIVE); Internal Control Within Normal Limits
[2024-07-16 20:51] VITALS: BP 134/71; PULSE 90
== END 2024-07-16 21:25 | disposition home or self-care (01) ==
PROVIDERS: Admitting Provider Obstetrics & Gynecology; Visit Provider Obstetrics & Gynecology
DX: Z03.71 Encounter for suspected problem with amniotic cavity and membrane ruled out (principal)
CPT/HCPCS: 59025; 81003; 84112; G0378; G0379

== ENCOUNTER 2024-07-18 16:13 | Outpatient (REF) | payer OTHER, SELFPAY ==
--- OUTSIDE RECORDS SUMMARY | 2024-07-19 07:03 | XMS_ITS | CCD ---
Author Organization [facility] Care Team Providers Care Ms Sql Developer Name Role Phone HARSHAL, DR STEVENS Attending [...] Unavailable Tamir Fuentes MD Primary Care Provider Unavailable Primary Care Provider Unavailabl e KATRIN, [...] Facility (1 source) Penicillin Drug Allergy [facility] (20 sources) Penicillin G Drug Allergy 4 [facility] Work Phone: (20 sources) Penicillins; Translations: [PENICILLINS] Drug Allergy 4 [facility] (2 sources) Penicillins Propensity to adverse reactions to drug [address] [facility] Medications Current Medications Medication Drug Class(es) Dates Sig (Normalized) Sig (Original) omeprazole 20 mg delayed release oral capsule (9 sources) Proton Pump Inhibitor Start: 06-27-2024 End: 06-27-2025 take 1 capsule by mouth before mealtime omeprazole (PriLOSEC) [address] capsule Indications: Heartburn during in third trimester Take 1 capsule (20 mg) by mouth in the morning. Take before meals. Do not crush or chew.. 30 capsule 11 06/27/2024 06/27/2025 Active [id number]-vwdermu fumarate-FA 28-800 mg-mcg tablet (2 sources) take 1 tablet by mouth in the morning [id number]-mdymohf fumarate-FA 28-800 mg-mcg tablet Take 1 tablet [...] [35 weeks gestation of ] 07-11-2024 Episodic Residual codes; unclassified (2 sources) Gestation period, 36 weeks; Translations: [36 weeks gestation of ] 07-18-2024 Episodic Unclassified (20 sources) OB Reminders Onset: [...] Range Facility Urinalysis macro (dipstick) panel (U)on 07-18-2024 Bilirubin, UA Negative Negative - 4(70) +++ mg/dL [facility] Blood, UA Negative Negative - 50 Grey/mcL [facility] Clarity, UA Clear [facility] Color, UA Yellow [facility] Glucose, UA Negative Negative - 1999(110) ++++ mg/dL [facility] Interpretation and review of laboratory results Abnormal [facility] Ketones, UA Positive Negative - 160(16) ++++ mg/dL [facility] Comment on above: trace Leukocytes, UA Positive Negative - 500+++ Juan Alberto/mcL [facility] Comment on above: small Nitrite, UA Negative Negative - Positive [facility] pH, UA 7 5 - 9 [facility] Protein, UA Negative Negative - 1999(20) ++++ mg/dL [facility] Spec Grav, UA 1.015 1 - 1.03 [facility] Urobilinogen, UA 1.0 0.2 - 12 mg/dL [facility] 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 YELLOW YELLOW [facility] GLUCOSE URINE UA Negative NEGATIVE mg/dL [facility] Interpretation and review of laboratory results Abnormal [facility] Ketones Ql (U) Negative NEGATIVE mg/dL [facility] Leukocyte esterase Test strip Ql (U) Negative NEGATIVE [facility] NITRITE URINE Negative NEGATIVE [facility] pH (U) 6.5 [pH] 5.0 - 9.0 [facility] PROTEIN URINE Negative NEG/TRACE mg/dL [facility] SPECIFIC GRAVITY URINE <=1.005 Abnormal 1.005 - 1.025 [facility] URINE MICROSCOPIC INDICATED NO [facility] UROBILINOGEN URINE 0.2 EU/dL 0.2 - 1.0 EU/dL [facility] Urinalysis macro (dipstick) panel (U)on 07-11-2024 Bilirubin, UA Negative Negative - 4(70) +++ mg/dL [facility] Blood, UA Negative Negative - 50 Grey/mcL [facility] Clarity, UA Clear [facility] Color, UA Yellow [facility] Glucose, UA Negative Negative - 1999(110) ++++ mg/dL [facility] Interpretation and review of laboratory results Abnormal [facility] Ketones, UA Positive Negative - 160(16) ++++ mg/dL [facility] Leukocytes, UA Negative Negative - 500+++ Juan Alberto/mcL [facility] Nitrite, UA Negative Negative - Positive [facility] pH, UA 6 5 - 9 [facility] Protein, UA Negative Negative - 1999(20) ++++ mg/dL [facility] Spec Grav, UA 1.03 1 - 1.03 [facility] Urobilinogen, UA 0.2 0.2 - 12 mg/dL [facility] Urinalysis macro (dipstick) panel (U)on 06-27-2024 Bilirubin, UA Negative Negative - 4(70) +++ mg/dL [facility] Blood, UA Negative Negative - 50 Grey/mcL [facility] Clarity, UA Clear [facility] Color, UA Yellow [facility] Glucose, UA Negative Negative - 1999(110) ++++ mg/dL [facility] Interpretation and review of laboratory results Abnormal [facility] Ketones, UA Positive Negative - 160(16) ++++ mg/dL [facility] Comment on above: 15 Leukocytes, UA Negative Negative - 500+++ Juan Alberto/mcL [facility] Nitrite, UA Negative Negative - Positive [facility] pH, UA 6.5 5 - 9 [facility] Protein, UA Trace Negative - 1999(20) ++++ mg/dL [facility] Spec Grav, UA 1.02 1 - 1.03 [facility] Urobilinogen, UA 2.0 0.2 - 12 mg/dL [facility] Urinalysis macro (dipstick) panel (U)on 06-06-2024 Bilirubin, UA Negative Negative - 4(70) +++ mg/dL [facility] Blood, UA Negative Negative - 50 Grey/mcL [facility] Clarity, UA Clear [facility] Color, UA Yellow [facility] Glucose, UA Negative Negative - 1999(110) ++++ mg/dL [facility] Interpretation and review of laboratory results Abnormal [facility] Ketones, UA Negative Negative - 160(16) ++++ mg/dL [facility] Leukocytes, UA Trace Negative - 500+++ Juan Alberto/mcL [facility] Nitrite, UA Negative Negative - Positive [facility] pH, UA 7 5 - 9 [facility] Protein, UA Negative Negative - 1999(20) ++++ mg/dL [facility] Spec Grav, UA 1.015 1 - 1.03 [facility] Urobilinogen, UA 0.2 0.2 - 12 mg/dL [facility] Urinalysis macro (dipstick) panel (U)on 05-21-2024 Bilirubin, UA Negative Negative - 4(70) +++ mg/dL [facility] Blood, UA Negative Negative - 50 Grey/mcL [facility] Clarity, UA Clear [facility] Color, UA Yellow [facility] Glucose, UA Negative Negative - 1999(110) ++++ mg/dL [facility] Interpretation and review of laboratory results Normal [facility] Ketones, UA Negative Negative - 160(16) ++++ mg/dL [facility] Leukocytes, UA Negative Negative - 500+++ Juan Alberto/mcL [facility] Nitrite, UA Negative Negative - Positive [facility] pH, UA 6 5 - 9 [facility] Protein, UA Negative Negative - 1999(20) ++++ mg/dL [facility] Spec Grav, UA 1.025 1 - 1.03 [facility] Urobilinogen, UA 0.2 0.2 - 12 mg/dL [facility] Urinalysis macro (dipstick) panel (U)on 05-07-2024 Bilirubin, UA Negative Negative - 4(70) +++ mg/dL [facility] Blood, UA Negative Negative - 50 Grey/mcL [facility] Clarity, UA Clear [facility] Color, UA Yellow [facility] Glucose, UA Negative Negative - 1999(110) ++++ mg/dL [facility] Interpretation and review of laboratory results Normal [facility] Ketones, UA Negative Negative - 160(16) ++++ mg/dL [facility] Leukocytes, UA Negative Negative - 500+++ Juan Alberto/mcL [facility] Nitrite, UA Negative Negative - Positive [facility] pH, UA 5 5 - 9 [facility] Protein, UA Negative Negative - 1999(20) ++++ mg/dL [facility] Spec Grav, UA 1.02 1 - 1.03 [facility] Urobilinogen, UA 0.2 0.2 - 12 mg/dL [facility] GLUCOSE TOLERANCE 3 HOURon 1 07-05-2023 GLUCOSE TOLERANCE 3 HOUR High mg/dL [facility] Comment on above: GLU FAST 86 (<95) Co l: 05/05/24 0808 GLU 1HR 181H (<180) Col: 05/05/24 0912 GLU 2HR 135 (<155) Col: 05/05/24 1012 GLU 3HR 125 (<140) Col: 05/05/24 1112 Interpretation and review of laboratory results Abnormal [facility] ALL CBC WITH AUTO DIFFon BASOPHILS ABSOLUTE AUTO 0.1 [facility] Basophils/100 WBC (Bld) 0.5 % 0.2 - 2.0 % [facility] Eosinophils/100 WBC (Bld) 1.6 % 0.9 - 7.0 % [facility] Erythrocyte distribution width (RBC) [Ratio] 12.9 % 11.0 - 15.0 % [facility] Hematocrit (Bld) [Volume fraction] 37.9 % 36.0 - 48.0 % [facility] Hemoglobin (Bld) [Mass/Vol] 12.5 g/dL 12.0 - 16.0 g/dL [facility] IMMATURE GRANULOCYTES ABS AUTO 0.23 High [facility] Immature granulocytes/100 WBC (Bld) 1.8 % High 0.0 - 0.5 % [facility] Interpretation and review of laboratory results Abnormal [facility] LYMPHOCYTES ABSOLUTE AUTO 2.1 [facility] Lymphocytes/100 WBC (Bld) 17 % Low 20.5 - 60.0 % [facility] MCH (RBC) [Entitic mass] 31.5 pg 26.7 - 34.0 pg [facility] MCHC (RBC) [Mass/Vol] 33 g/dL 29.9 - 35.2 g/dL [facility] MCV (RBC) [Entitic vol] 95.5 fL 81.0 - 99.0 fL [facility] MONOCYTES ABSOLUTE AUTO 0.9 High [facility] Monocytes/100 WBC (Bld) 6.8 % 1.7 - 12.0 % [facility] NEUTROPHILS ABSOLUTE AUTO 9.1 High [facility] Neutrophils/100 WBC (Bld) 72.3 % 43.0 - 75.0 % [facility] Platelet mean volume (Bld) [Entitic vol] 9.5 fL 9.5 - 13.5 fL [facility]H EO # 0.2 [facility] PLT 244 [facility] RBC 3.[address] [facility] WBC 12.6 High [facility] Urinalysis macro (dipstick) panel (U)on 04-03-2024 Bilirubin, UA Negative Negative - 4(70) +++ mg/dL [facility] Blood, UA Negative Negative - 50 Grey/mcL [facility] Clarity, UA Clear [facility] Color, UA Yellow [facility] Glucose, UA Negative Negative - 1999(110) ++++ mg/dL [facility] Interpretation and review of laboratory results Normal [facility] Ketones, UA Negative Negative - 160(16) ++++ mg/dL [facility] Leukocytes, UA Negative Negative - 500+++ Juan Alberto/mcL [facility] Nitrite, UA Negative Negative - Positive [facility] pH, UA 6.5 5 - 9 [facility] Protein, UA Negative Negative - 1999(20) ++++ mg/dL [facility] Spec Grav, UA 1.02 1 - 1.03 [facility] Urobilinogen, UA 0.2 0.2 - 12 mg/dL [facility] AFP, SERUM, OPEN SPINA BIFID Aon 03-31-2024 AFP MOM 1.42 . [facility] AFP VALUE 88.7 ng/mL . [facility] COMMENT: Comment . [facility] Comment on above: Radha Viveros , Ph.D., [facility] Director References: Available Upon Request. Multiples Of Median Cutoffs For AFP Elevations Ricardo 2.5 Black 2.8 IDD 2.0 Twins 4.5 Abbreviation Definitions IDD - Insulin Dep Diabetes OSBR - Open Spina Bifida Risk For further inquiries contact [facility] [employer] at [phone]. This test was developed and its performance characteristics determined by [employer]. It has not been cleared or approved by the Food and Drug Administration. Performed at: [facility] [employer] [address] [place], [place] [id number] Warranty Administrator: Priya Jung Formerly [facility], Phone: [phone] GEST. AGE ON COLLECTION DATE 20.4 . weeks [facility] GESTAT. AGE BASED ON As provided . [facility] Comment on above: Recalculations are n ot recommended when gestational dating by LMP and ultrasound are within 10 days. INSULIN DEP DIABETES No . [facility] INTERPRETATION Comment . [facility] Comment on above: Interpretation: Scre en [...] Customer Services to discuss available options. The [employer] recommends amniocentesis be offered to women age 35 and older. [age] [facility] MULTIPLE GESTATION No . [facility] OSBR RISK 1 IN 3404 . [facility] RACE . [facility] RESULTS Report . [facility] TEST RESULTS: Negative . [facility] 137 . [facility] [id number] 1 17 N 1 Y 137 N N N N N White/ [facility] IGP,APTIMA HPV,AGE GDLNon AGE GDLN ACOG TESTING Note . [facility] Comment on above: TESTS RESULT FLAG UN ITS REF RANGE LAB Clinician Provided Cytology Information Source.............Cervix Other.............. No. of containers..01 ThinPrep Vial Age Algo ACOG Martha... FLAG LEGEND: L-Low Normal,H-High Normal,LL-Alert Low,HH-Alert High <-Panic Low,>-Panic High,A-Abnormal,AA-Critical Abnormal Performed at: 01 =[address] [address] Deysi Tidwell MD, HPV APTIMA Negative Negative [facility] Comment on above: This nucleic acid am plification test detects fourteen high- risk HPV types (16,18,31,33,35,39,45,51,52,56,58,59,66,68) without differentiation. Performed at: =[address] [id number] Warranty Administrator: Deysi Tidwell MD, Phone: [phone] Performed at: [address] [id number] Warranty Administrator: Deysi Tidwell MD, Phone: [phone] IGP, APTIMA HPV, RFX 16/18,45 Note . [facility] Comment on above: TESTS RESULT FLAG UN ITS REF RANGE LAB DIAGNOSIS: 02 NEGATIVE FOR INTRAEPITHELIAL LESION OR MALIGNANCY. Specimen adequacy: 02 Satisfactory for evaluation. Endocervical and/or squamous metaplastic cells (endocervical component) are present. Performed by: 02 Alina Muniz, Packaging Machine Supplies Distributor (ASCP) . 02 Note: Note 02 The [...] High <-Panic Low,>-Panic High,A-Abnormal,AA-Critical Abnormal Performed at: 02 [facility] [address] [place] [address] Deysi Tidwell MD, SPATULA-ALONE CERVIX [facility] URETHRITIS/DISCHARGE PLUS VA GINITIS (HTRX)on 03-07-2024 ATOPOBIUM VAGINAE 29.123 Abnormal [facility] ATOPOBIUM VAGINAE Detected Abnormal [facility] BVAB 2,3 (BACTERIAL VAGINOSIS ASSOCIATED BACTERIA 2, 3); MOBILUNCUS SPP 0.000 [facility] BVAB 2,3 (BACTERIAL VAGINOSIS ASSOCIATED BACTERIA 2, 3); MOBILUNCUS SPP Not detected [facility] TAMIR ALBICANS, PARAPSILOSIS, TROPICALIS 0.000 [facility] TAMIR ALBICANS, PARAPSILOSIS, TROPICALIS Not detected [facility] TAMIR GLABRATA 0.000 [facility] TAMIR GLABRATA Not detected [facility] TAMIR KRUSEI 0.000 [facility] TAMIR KRUSEI Not detected [facility] CHLAMYDIA TRACHOMATIS 0.000 [facility] CHLAMYDIA TRACHOMATIS Not detected [facility] GARDNERELLA VAGINALIS 0.000 [facility] GARDNERELLA VAGINALIS Not detected [facility] Interpretation and review of laboratory results Abnormal [facility] MEGASPHAERA (TYPES 1, 2) 0.000 [facility] MEGASPHAERA (TYPES 1, 2) Not detected [facility] MYCOPLASMA GENITALIUM 0.000 [facility] MYCOPLASMA GENITALIUM Not detected [facility] NEISSERIA GONORRHOEAE 0.000 [facility] NEISSERIA GONORRHOEAE Not detected [facility] TRICHOMONAS VAGINALIS 0.000 [facility] TRICHOMONAS VAGINALIS Not detected [facility] Cytology Cervical or vaginal smear or scraping studyon 03-05-2024 [facility] Urinalysis macro (dipstick) panel (U)on 03-05-2024 Bilirubin, UA Negative Negative - 4(70) +++ mg/dL [facility] Blood, UA Negative Negative - 50 Grey/mcL [facility] Clarity, UA Clear [facility] Color, UA Yellow [facility] Glucose, UA Negative Negative - 1999(110) ++++ mg/dL [facility] Interpretation and review of laboratory results Normal [facility] Ketones, UA Negative Negative - 160(16) ++++ mg/dL [facility] Leukocytes, UA Negative Negative - 500+++ Jua Nalberto/mcL [facility] Nitrite, UA Negative Negative - Positive [facility] pH, UA 6.5 5 - 9 [facility] Protein, UA Negative Negative - 1999(20) ++++ mg/dL [facility] Spec Grav, UA 1.020 1 - 1.03 [facility] Urobilinogen, UA 1.0 0.2 - 12 mg/dL [facility] Urinalysis macro (dipstick) panel (U)on 02-06-2024 Bilirubin, UA Negative Negative - 4(70) +++ mg/dL [facility] Blood, UA Negative Negative - 50 Grey/mcL [facility] Clarity, UA Clear [facility] Color, UA Yellow [facility] Glucose, UA Negative Negative - 1999(110) ++++ mg/dL [facility] Interpretation and review of laboratory results Normal [facility] Ketones, UA Negative Negative - 160(16) ++++ mg/dL [facility] Leukocytes, UA Negative Negative - 500+++ Juan Alberto/mcL [facility] Nitrite, UA Negative Negative - Positive [facility] pH, UA 7.0 5 - 9 [facility] Protein, UA Negative Negative - 2000(20) ++++ mg/dL [facility] Spec Grav, UA 1.015 1 - 1.03 [facility] Urobilinogen, UA 0.2 0.2 - 12 mg/dL [facility] CBC without diffon Hematocrit (Bld) [Volume fraction] 40.3 % [facility] Hemoglobin (Bld) [Mass/Vol] 13.3 g/dL [facility] Platelets (Bld) [#/Vol] 329 10*3/uL [facility] Rbc Mcv (Fl) By Automated Count 93.3 [facility] Chlamydia/GC by PCR Mariaa Sw abon 01-27-2024 Chlamydia Dna(Pcr) Not detected [facility] Gonorrhoeae Dna(Pcr) Not detected [facility] HIV 1&2 AB/AG Screen (P24 AG )on 01-27-2024 HIV 1&2 AB/AG Non-Reactive [facility] Hepatitis B surface antigeno n 01-27-2024 Hepatitis B Surface Antigen Negative [facility] Hepatitis C(HCV) Ab w/ Refle x to PCRon 01-27-2024 HCV Ab Ql (S) non reacitve [facility] No Panel Informationon 01-26 [facility] Rubella IGG immune statuson 01-27-2024 Rubella immune IgG 9.62 [facility] Syphilis Total(Unknown Syphi lis Status)on 01-27-2024 Syphilis Non-Reactive [facility] Type and screenon 01-27-2024 Abo/Rh(D) Positive [facility] LIPID PROFILEon 03-29-2022 CHOL-HDL RATIO NORM SEE BELOW Normal [facility] Comment on above: Result Comment: 3.3 - 4.4 LOW RISK 4.4 - 7.1 AVERAGE RISK 7.1 - 11.0 MODERATE RISK >11.0 HIGH RISK Performed By: #### L IPID #### [facility] [address] [address] [address] Parth Lucero Cholesterol [Mass/Vol] 197 mg/dL Normal <=200 [facility] Comment on above: Performed By: #### L IPID #### [facility] [address] [address] [address] Parth Lucero Cholesterol in HDL [Mass/Vol] 66 mg/dL Critically high 40-60 [facility] Comment on above: Performed By: #### L IPID #### [facility] [address] [address] [address] Parth Luecro Cholesterol in LDL [Mass/Vol] 120.0 mg/dL Normal [facility] Comment on above: Performed By: #### L IPID #### [facility] [address] [address] [address] Parth Lucero Cholesterol.total/Ch olesterol in HDL [Mass ratio] 3.0 {ratio} Normal [facility] Comment on above: Performed By: #### L IPID #### [facility] [address] [address] [address] Parth Lucero HDL NORMAL > or = 60 mg/dl - LO W CARDIOVASCULAR RISK <40 mg/dl - HIGH CARDIOVASCULAR RISK Normal [facility] Comment on above: Performed By: #### L IPID #### [facility] [address] [address] [address] Parth Lucero LDL CALC NORMAL SEE BELOW Normal [facility] Comment on above: Result Comment: <100 mg/dl OPTIMAL 100 - 129 mg/dl NEAR OR ABOVE OPTIMAL 130 - 159 mg/dl BORDERLINE HIGH 160 - 189 mg/dl HIGH >190 mg/dl VERY HIGH Performed By: #### L IPID #### [facility] [address] [place] [address] Dr. Parth Lucero Triglyceride [Mass/Vol] 55 mg/dL Normal <=150 [facility] Comment on above: Performed By: #### L IPID #### [facility] [address] [place] [address] Dr. Parth Lucero VLDL CALC 11.0 mg/dL Normal [facility] Comment on above: Performed By: #### L IPID #### [facility] [address] [place] [address] Dr. Parth Lucero CBC AUTO DIFFon 01-08-2022 BASO # 0.0 103/ul Normal 0.0-0.1 [facility] Comment on above: Performed By: #### [id number] #### [facility] [address] [place] [address] Dr. Parth Lucero Basophils/100 WBC (Bld) 0.3 % Normal 0.2-2.0 [facility] Comment on above: Performed By: #### [id number] #### [facility] [address] [place] [address] Dr. Parth Lucero EO # 0.1 103/ul Normal 0.0-0.7 [facility] Comment on above: Performed By: #### [id number] #### [facility] [address] [place] [address] Dr. Parth Lucero Eosinophils/100 WBC (Bld) 0.4 % Critically low 0.9-7.0 [facility] Comment on above: Performed By: #### [id number] #### [facility] [address] [place] [address] Dr. Parth Lucero Erythrocyte distribution width (RBC) [Ratio] 13.4 % Normal 11.0-15.0 [facility] Comment on above: Performed By: #### [id number] #### [facility] [address] [place] [address] Dr. Parth Lucero Hematocrit (Bld) [Volume fraction] 36.0 % Normal 36.0-48.0 [facility] Comment on above: Performed By: #### [id number] #### [facility] [address] [place] [address] Dr. Parth Lucero Hemoglobin (Bld) [Mass/Vol] 12.1 g/dL Normal 12.0-16.0 [facility] Comment on above: Performed By: #### [id number] #### [facility] [address] [place] [address] Dr. Parth Lucero IG # 0.10 10e3/ul Critically high 0.00-0.03 [facility] Comment on above: Performed By: #### [id number] #### [facility] [address] [place] [address] Dr. Parth Lucero IG % 0.7 % Critically high 0.0-0.5 [facility] Comment on above: Performed By: #### [id number] #### [facility] [address] [place] [address] Dr. Parth Lucero LYMPH # 2.1 103/ul Normal 1.2-3.8 [facility] Comment on above: Performed By: #### [id number] #### [facility] [address] [place] [address] Dr. Parth Lucero Lymphocytes/100 WBC (Bld) 14.0 % Critically low 20.5-60.0 [facility] Comment on above: Performed By: #### [id number] #### [facility] [address] [place] [address] Dr. Parth Lucero MANUAL DIFF REQ NO Normal [facility] Comment on above: Performed By: #### [id number] #### [facility] [address] [place] [address] Dr. Parth Lucero MCH (RBC) [Entitic mass] 31.0 pg Normal 26.7-34.0 [facility] Comment on above: Performed By: #### [id number] #### [facility] [address] [place] [address] Dr. Parth Lucero MCHC (RBC) [Mass/Vol] 33.6 g/dL Normal 29.9-35.2 [facility] Comment on above: Performed By: #### [id number] #### [facility] [address] [place] [address] Dr. Parth Lucero MCV (RBC) [Entitic vol] 92.3 fL Normal 81.0-99.0 [facility] Comment on above: Performed By: #### [id number] #### [facility] [address] [place] [address] Dr. Parth Lucero MONO # 1.2 103/ul Critically high 0.3-0.[address] [facility] Comment on above: Performed By: #### [id number] #### [facility] [address] [place] [address] Dr. Parth Lucero Monocytes/100 WBC (Bld) 7.7 % Normal 1.7-12.0 [facility] Comment on above: Performed By: #### [id number] #### [facility] [address] [place] [address] Dr. Parth Lucero NEUT # 11.7 103/ul Critically high 1.4-6.5 [facility] Comment on above: Performed By: #### 4 [id number] #### [facility] [address] [place] [address] Dr. Parth Lucero Neutrophils/100 WBC (Bld) 76.9 % Critically high 43.0-75.0 [facility] Comment on above: Performed By: #### 4 [id number] #### [facility] [address] [place] [address] Dr. Parth Lucero Platelet mean volume (Bld) [Entitic vol] 10.0 fL Normal 9.5-13.5 [facility] Comment on above: Performed By: #### 4 [id number] #### [facility] [address] [place] [address] Dr. Parth Lucero PLT 231 103/ul Normal 150-450 [facility] Comment on above: Performed By: #### 4 [id number] #### [facility] [address] [place] [address] Dr. Parth Lucero RBC 3.90 106/ul Critically low 4.20-5.[address] [facility] Comment on above: Performed By: #### 4 [id number] #### [facility] [address] [address] [address] Parth Lucero WBC 15.2 103/ul Critically high 4.0-11.0 [facility] Comment on above: Performed By: #### 4 [id number] #### [facility] [address] [place] [address] Dr. Parth Lucero CBC AUTO DIFFon 01-07-2022 BASO # 0.0 103/ul Normal 0.0-0.1 [facility] Comment on above: Performed By: #### C BC #### [facility] [address] [place] [address] Dr. Parth Lucero Basophils/100 WBC (Bld) 0.4 % Normal 0.2-2.0 [facility] Comment on above: Performed By: #### C BC #### [facility] [address] [place] [address] Dr. Parth Lucero EO # 0.1 103/ul Normal 0.0-0.7 [facility] Comment on above: Performed By: #### C BC #### [facility] [address] [place] [address] Dr. Parth Lucero Eosinophils/100 WBC (Bld) 1.1 % Normal 0.9-7.0 [facility] Comment on above: Performed By: #### C BC #### [facility] [address] [place] [address] Dr. Parth Lucero Erythrocyte distribution width (RBC) [Ratio] 13.3 % Normal 11.0-15.0 [facility] Comment on above: Performed By: #### C BC #### [facility] [address] [place] [address] Dr. Parth Lucero Hematocrit (Bld) [Volume fraction] 39.2 % Normal 36.0-48.0 [facility] Comment on above: Performed By: #### C BC #### [facility] [address] [address] [address] Parth Lucero Hemoglobin (Bld) [Mass/Vol] 13.3 g/dL Normal 12.0-16.0 [facility] Comment on above: Performed By: #### C BC #### [facility] [address] [place] [address] Dr. Parth Lucero IG # 0.10 10e3/ul Critically high 0.00-0.03 [facility] Comment on above: Performed By: #### C BC #### [facility] [address] [place] [address] Dr. Parth Lucero IG % 1.0 % Critically high 0.0-0.[address] [facility] Comment on above: Performed By: #### C BC #### [facility] [address] [place] [address] Dr. Parth Lucero LYMPH # 1.8 103/ul Normal 1.2-3.8 [facility] Comment on above: Performed By: #### C BC #### [facility] [address] [place] [address] Dr. Parth Lucero Lymphocytes/100 WBC (Bld) 18.0 % Critically low 20.5-60.0 [facility] Comment on above: Performed By: #### C BC #### [facility] [address] [place] [address] Dr. Parth Lucero MANUAL DIFF REQ NO Normal [facility] Comment on above: Performed By: #### C BC #### [facility] [address] [place] [address] Dr. Patrh Lucero MCH (RBC) [Entitic mass] 31.1 pg Normal 26.7-34.0 [facility] Comment on above: Performed By: #### C BC #### [facility] [address] [place] [address] Dr. Parth Lucero MCHC (RBC) [Mass/Vol] 33.9 g/dL Normal 29.9-35.2 [facility] Comment on above: Performed By: #### C BC #### [facility] [address] [place] [address] Dr. Parth Lucero MCV (RBC) [Entitic vol] 91.8 fL Normal 81.0-99.0 [facility] Comment on above: Performed By: #### C BC #### [facility] [address] [place] [address] Dr. Parth Lucero MONO # 1.1 103/ul Critically high 0.3-0.8 [facility] Comment on above: Performed By: #### C BC #### [facility] [address] [place] [address] Dr. Parth Lucero Monocytes/100 WBC (Bld) 11.3 % Normal 1.7-12.0 [facility] Comment on above: Performed By: #### C BC #### [facility] [address] [place] [address] Dr. Parth Lucero NEUT # 6.9 103/ul Critically high 1.4-6.[address] [facility] Comment on above: Performed By: #### C BC #### [facility] [address] [place] [address] Dr. Parth Lucero Neutrophils/100 WBC (Bld) 68.2 % Normal 43.0-75.0 [facility] Comment on above: Performed By: #### C BC #### [facility] [address] [place] [address] Dr. Parth Lucero Platelet mean volume (Bld) [Entitic vol] 10.6 fL Normal 9.5-13.5 [facility] Comment on above: Performed By: #### C BC #### [facility] [address] [place] [address] Dr. Parth Lucero PLT 258 103/ul Normal 150-450 [facility] Comment on above: Performed By: #### C BC #### [facility] [address] [place] [address] Dr. Parth Lucero RBC 4.27 106/ul Normal 4.20-5.40 [facility] Comment on above: Performed By: #### C BC #### [facility] [address] [place] [address] Dr. Parth Lucero WBC 10.1 103/ul Normal 4.0-11.0 [facility] Comment on above: Performed By: #### C BC #### [facility] [address] [place] [address] Dr. Parth Lucero Covid-19 PCR ([facility])on 12-19 SARS-CoV-2 (COVID-19) RNA RIGOBERTO+probe Ql (Unsp spec) Not detected Normal NOT DETECTED [facility] Comment on above: Result Comment: When [...] for this test is supported by the [employer] of Health and Human Service's declaration that [...] longer be used). Performed By: #### 4 [id number] #### [facility] [address] [place] [address] Dr. Parth Lucero DRUG SCREEN RAPID (URINE)on 01-07-2022 AMP Negative Normal NEGATIVE [facility] Comment on above: Performed By: #### L IPID #### [facility] [address] [place] [address] Dr. Parth Lucero BAR Negative Normal NEGATIVE [facility] Comment on above: Performed By: #### L IPID #### [facility] [address] [place] [address] Dr. Parth Lucero BUP Negative Normal NEGATIVE [facility] Comment on above: Performed By: #### L IPID #### [facility] [address] [place] [address] Dr. Parth Lucero BZO Negative Normal NEGATIVE [facility] Comment on above: Performed By: #### L IPID #### [facility] [address] [address] [address] Parth Lucero AMINTA Negative Normal NEGATIVE [facility] Comment on above: Performed By: #### L IPID #### [facility] [address] [address] [address] Parth Lucero CUT-OFFS SEE BELOW Normal [facility] Comment on above: Result Comment: AMP [...] ng/mL Performed By: #### L IPID #### [facility] [address] [place] [address] Dr. Parth Lucero DRUG CUT HEADER DRUG CLASS TEST SYSTEM CUT-OFF CONCENTRATIONS ARE FOLLOWS: Normal [facility] Comment on above: Performed By: #### L IPID #### [facility] [address] [place] [address] Dr. Parth Lucero mAMP Negative Normal NEGATIVE [facility] Comment on above: Performed By: #### L IPID #### [facility] [address] [address] [address] Parth Lucero MTD Negative Normal NEGATIVE [facility] Comment on above: Performed By: #### L IPID #### [facility] [address] [address] [address] Parth Lucero OPI Negative Normal NEGATIVE [facility] Comment on above: Performed By: #### L IPID #### [facility] [address] [place] [address] Dr. Parth Lucero OXY Negative Normal NEGATIVE [facility] Comment on above: Performed By: #### L IPID #### [facility] [address] [address] [address] Parth Lucero PCP Negative Normal NEGATIVE [facility] Comment on above: Performed By: #### L IPID #### [facility] [address] [place] [address] Dr. Parth Lucero PPX Negative Normal NEGATIVE [facility] Comment on above: Performed By: #### L IPID #### [facility] [address] [place] [address] Dr. Parth Lucero TCA Negative Normal NEGATIVE [facility] Comment on above: Performed By: #### L IPID #### [facility] [address] [place] [address] Dr. Parth Lucero THC Negative Normal NEGATIVE [facility] Comment on above: Performed By: #### L IPID #### [facility] [address] [place] [address] Dr. Parth Lucero TYPE AND SCREENon 01-07-2022 TYPE AND SCREEN Negative Normal [facility] Comment on above: Performed By: #### T NS #### [facility] [address] [place] [address] Dr. Parth Lucero GROUP B STREP CULTUREon 11-19 S. agalactiae Ag Ql (Unsp spec) Culture Observations: NEGATIVE FOR GROUP B STREPTOCOCCUS. Normal [facility] Comment on above: Performed By: #### 4 [id number] #### [facility] [address] [place] [address] Dr. Parth Lucero GTT 3 HR PREGon 2021 Glucose [Mass/Vol] 93 mg/dL Normal 74-106 [facility] Comment on above: Performed By: #### G TT3P #### [facility] [address] [place] [address] Dr. Parth Lucero Glucose [Mass/Vol] 173 mg/dL Normal [facility] Comment on above: Performed By: #### G TT3P #### [facility] [address] [place] [address] Dr. Parth Lucero Glucose [Mass/Vol] 149 mg/dL Normal [facility] Comment on above: Performed By: #### G TT3P #### [facility] [address] [place] [address] Dr. Parth Lucero Glucose [Mass/Vol] 128 mg/dL Normal [facility] Comment on above: Performed By: #### G TT3P #### [facility] [address] [place] [address] Dr. Parth Lucero GLUCOSE - 1HRon 10-09-2021 Glucose [Mass/Vol] 150 mg/dL Critically high 74-106 T [facility] Comment on above: Performed By: #### G [id number] #### [facility] [address] [place] [address] Dr. Parth Lucero HEMOGRAM AND PLATELon 2021 Hematocrit (Bld) [Volume fraction] 37.6 % Normal 36.0-48.0 [facility] Comment on above: Performed By: #### H H #### [facility] [address] [place] [address] Dr. Parth Lucero Hemoglobin (Bld) [Mass/Vol] 12.3 g/dL Normal 12.0-16.0 [facility] Comment on above: Performed By: #### H H #### [facility] [address] [place] [address] Dr. Parth Lucero MCH (RBC) [Entitic mass] 31.2 pg Normal 26.7-34.0 [facility] Comment on above: Performed By: #### H H #### [facility] [address] [place] [address] Dr. Parth Lucero MCHC (RBC) [Mass/Vol] 32.7 g/dL Normal 29.9-35.2 [facility] Comment on above: Performed By: #### H H #### [facility] [address] [place] [address] Dr. Parth Lucero MCV (RBC) [Entitic vol] 95.4 fL Normal 81.0-99.0 [facility] Comment on above: Performed By: #### H H #### [facility] [address] [address] [address] Parth Lucero PLT 240 103/ul Normal 150-450 [facility] Comment on above: Performed By: #### H H #### [facility] [address] [address] [address] Parth Lucero RBC 3.94 106/ul Critically low 4.20-5.40 [facility] Comment on above: Performed By: #### H H #### [facility] [address] [address] [address] Parth Lucero WBC 9.7 103/ul Normal 4.0-11.0 [facility] Comment on above: Performed By: #### H H #### [facility] [address] [place] [address] Dr. Parth Lucero PAP ACOG PANEL 2: 21 to 29on 09-02-[address] [facility] Comment on above: Performed By: #### 4 [id number] #### [facility] [address] [place] [address] Dr. Parth Lucero Age Gdln ACOG Testing 21-29 [facility] Comment on above: Performed By: #### 4 [id number] #### [facility] [address] [place] [address] Dr. Parth Lucero DIAGNOSIS: Comment Normal [facility] Comment on above: Result Comment: NEGA TIVE FOR INTRAEPITHELIAL LESION OR MALIGNANCY. Performed By: #### 4 [id number] #### [facility] [address] [place] [address] Dr. Parth Lucero Methodology: Comment Normal [facility] Comment on above: Result Comment: This liquid based ThinPrep(R) pap test was screened with the use of an image guided system. Performed By: #### 4 [id number] #### [facility] [address] [place] [address] Dr. Parth Lucero Note: Comment Normal [facility] Comment on above: Result Comment: The Pap smear is a screening test designed to aid in the detection of premalignant and malignant conditions of the uterine cervix. It is not a diagnostic procedure and should not be used as the sole means of detecting cervical cancer. Both false-positive and false-negative reports do occur. . Performed By: #### 4 [id number] #### [facility] [address] [place] [address] Dr. Parth Lucero Performed by: Comment Normal [facility] Comment on above: Result Comment: Vivian Paris, [employer] ([employer]) Performed By: #### 4 [id number] #### [facility] [address] [place] [address] Dr. Parth Lucero Reflex Criteria: Comment Normal [facility] Comment on above: Result Comment: The HPV DNA reflex criteria were not met with this specimen result therefore, no HPV testing was performed. . Performed By: #### 4 [id number] #### [facility] [address] [place] [address] Dr. Parth Lucero Specimen adequacy: Comment Normal [facility] Comment on above: Result Comment: Sati sfactory for evaluation. No endocervical component is identified. Performed By: #### 4 [id number] #### [facility] [address] [place] [address] Dr. Parth Lucero US PREG ANATOMY SINGLEon [...] by ultrasound, 56% by expected EDC; FL/AC: 0.302704 FL/BPD: 0.623070 HC/AC: 1.419373 GESTATIONAL AGE: Age by EDC: 21 weeks 0 days ARMANI by EDC: 01/12/2022 Age by current US: 20 weeks 1 day ARMANI by current US: 01/11/2022 IMPRESSION: Normal anatomy scan *Reference: [employer] Practice Guideline for the performance of Obstetric Ultrasound Examinations, March 20, 2007. Electronically authenticated by: ALONSO SANEDRS Date: 2021-09-01 16:20 Normal [facility] CHLAMYDIA/GONOCOCCUS RIGOBERTO ( AB/URINE/PAPon 08-29-2021 Chlamydia trachomatis, RIGOBERTO Negative Normal Negative [facility] Comment on above: Performed By: #### L IPID #### [facility] [address] [place] [address] Dr. Parth Lucero Neisseria gonorrhoeae, RIGOBERTO Negative Normal Negative [facility] Comment on above: Performed By: #### L IPID #### [facility] [address] [address] [address] Parth Lucero AFP MATERNAL FOR SPINA BIFID Aon 08-18-2021 AFP MoM 1.13 Normal [facility] Comment on above: Performed By: #### 4 [id number] #### [facility] [address] [place] [address] Dr. Parth Lucero AFP Value 52.2 ng/mL Normal [facility] Comment on above: Performed By: #### 4 [id number] #### [facility] [address] [address] [address] Parth Lucero AFP, Serum for Spina Bifida Report Normal [facility] Comment on above: Performed By: #### 4 [id number] #### [facility] [address] [address] [address] Parth Lucero Comment Comment Normal [facility] Comment on above: Result Comment: Ruth Viveros, Ph.D., [facility] Director . References: Available Upon Request. . Multiples Of Median Cutoffs For AFP Elevations Ricardo 2.5 Black 2.8 IDD 2.0 Twins 4.5 Abbreviation Definitions IDD - Insulin Dep Diabetes OSBR - Open Spina Bifida Risk . For further inquiries contact [employer] [facility] at [phone]. Performed By: #### [id number] #### [facility] [address] [address] [address] Parth Modi Age Collection Date 18.[address] [facility] Comment on above: Performed By: #### 4 [id number] #### [facility] [address] [address] [address] Parth Lucero Gestat, Age Based on LMP Normal [facility] Comment on above: Result Comment: Reca lculations are not recommended when gestational dating by LMP and ultrasound are within 10 days. Performed By: #### 4 [id number] #### [facility] [address] [place] [address] Dr. Parth Lucero Insulin Dep Diabetes No Normal [facility] Comment on above: Performed By: #### 4 [id number] #### [facility] [address] [place] [address] Dr. Parth Lucero Interpretation Comment Normal [facility] Comment on above: Result Comment: [...] Customer Services to discuss available options. The [employer] recommends amniocentesis be offered to women age 35 and older. Performed By: #### 4 [id number] #### [facility] [address] [place] [address] Dr. Parth Lucero [age] Normal [facility] Comment on above: Performed By: #### 4 [id number] #### [facility] [address] [address] [address] Parth Lucero Multiple Gestation No Normal [facility] Comment on above: Performed By: #### 4 [id number] #### [facility] [address] [address] [address] Parth Lucero OSBR Risk 1 IN 8106 Normal [facility] Comment on above: Performed By: #### 4 [id number] #### [facility] [address] [address] [address] Parth Lucero PDF . Normal [facility] Comment on above: Result Comment: This test was developed and its performance characteristics determined by [employer]. It has not been cleared or approved by the Food and Drug Administration. Performed By: #### 4 [id number] #### [facility] [address] [place] [address] Dr. Parth Lucero Race Normal [facility] Comment on above: Performed By: #### 4 [id number] #### [facility] [address] [place] [address] Dr. Parth Lucero Test Results: Negative Normal [facility] Comment on above: Performed By: #### 4 [id number] #### [facility] [address] [place] [address] Dr. Parth Lucero HEP B SURFACE ANTIGEN SCREEN on 06-25-2021 HBsAg Screen Negative Normal Negative [facility] Comment on above: Performed By: #### H BSANS #### [facility] [address] [place] [address] Dr. Parth Lucero HEPATITIS C VIRUS AB W/ REFL EX QUANTon 06-25-2021 HCV AB <0.1 Normal 0.0-0.9 [facility] Comment on above: Performed By: #### 4 [id number] #### [facility] [address] [place] [address] Dr. Parth Lucero Interpretation: Comment Normal [facility] Comment on above: Result Comment: Nega tive Not infected with HCV, unless recent infection is suspected or other evidence exists to indicate HCV infection. Performed By: #### 4 [id number] #### [facility] [address] [place] [address] Dr. Parth Lucero HIV 1 AND 2 WITH REFLEXon HIV Screen 4th Generation wRfx Non-Reactive Normal Non Reactive [facility] Comment on above: Performed By: #### L IPID #### [facility] [address] [place] [address] Dr. Parth Lucero RPR QUANTon 06-25-2021 Rapid Plasma Reagin, Quant Non-Reactive Normal NonRea<1:1 [facility] Comment on above: Performed By: #### L IPID #### [facility] [address] [place] [address] Dr. Parth Lucero RUBELLA AB IGGon 06-25-2021 Rubella Antibodies, IgG 13.00 index Normal Immune >0.99 [facility] Comment on above: Result Comment: Non- immune <0.90 Equivocal 0.90 - 0.99 Immune >0.99 Performed By: #### 4 [id number] #### [facility] [address] [place] [address] Dr. Parth Lucero CBC AUTO DIFFon 06-23-2021 BASO # 0.0 103/ul Normal 0.0-0.1 [facility] Comment on above: Performed By: #### L IPID #### [facility] [address] [place] [address] Dr. Parth Lucero Basophils/100 WBC (Bld) 0.3 % Normal 0.2-2.0 [facility] Comment on above: Performed By: #### L IPID #### [facility] [address] [place] [address] Dr. Parth Lucero EO # 0.1 103/ul Normal 0.0-0.7 [facility] Comment on above: Performed By: #### L IPID #### [facility] [address] [place] [address] Dr. Parth Lucero Eosinophils/100 WBC (Bld) 1.1 % Normal 0.9-7.0 [facility] Comment on above: Performed By: #### L IPID #### [facility] [address] [place] [address] Dr. Parth Lucero Erythrocyte distribution width (RBC) [Ratio] 12.7 % Normal 11.0-15.0 [facility] Comment on above: Performed By: #### L IPID #### [facility] [address] [place] [address] Dr. Parth Lucero Hematocrit (Bld) [Volume fraction] 38.2 % Normal 36.0-48.0 [facility] Comment on above: Performed By: #### L IPID #### [facility] [address] [place] [address] Dr. Parth Lucero Hemoglobin (Bld) [Mass/Vol] 13.0 g/dL Normal 12.0-16.0 [facility] Comment on above: Performed By: #### L IPID #### [facility] [address] [place] [address] Dr. Parth Lucero IG # 0.04 10e3/ul Critically high 0.00-0.03 [facility] Comment on above: Performed By: #### L IPID #### [facility] [address] [place] [address] Dr. Parth Lucero IG % 0.4 % Normal 0.0-0.5 [facility] Comment on above: Performed By: #### L IPID #### [facility] [address] [place] [address] Dr. Parth Lucero LYMPH # 2.3 103/ul Normal 1.2-3.8 [facility] Comment on above: Performed By: #### L IPID #### [facility] [address] [place] [address] Dr. Parth Lucero Lymphocytes/100 WBC (Bld) 23.8 % Normal 20.5-60.0 [facility] Comment on above: Performed By: #### L IPID #### [facility] [address] [place] [address] Dr. Parth Lucero MANUAL DIFF REQ NO Normal [facility] Comment on above: Performed By: #### L IPID #### [facility] [address] [place] [address] Dr. Parth Lucero MCH (RBC) [Entitic mass] 31.6 pg Normal 26.7-34.0 [facility] Comment on above: Performed By: #### L IPID #### [facility] [address] [address] [address] Parth Lucero MCHC (RBC) [Mass/Vol] 34.0 g/dL Normal 29.9-35.2 [facility] Comment on above: Performed By: #### L IPID #### [facility] [address] [address] [address] Parth Lucero MCV (RBC) [Entitic vol] 92.9 fL Normal 81.0-99.0 [facility] Comment on above: Performed By: #### L IPID #### [facility] [address] [address] [address] Parth Lucero MONO # 0.8 103/ul Normal 0.3-0.8 [facility] Comment on above: Performed By: #### L IPID #### [facility] [address] [address] [address] Parth Lucero Monocytes/100 WBC (Bld) 7.6 % Normal 1.7-12.0 [facility] Comment on above: Performed By: #### L IPID #### [facility] [address] [place] [address] Dr. Parth Lucero NEUT # 6.6 103/ul Critically high 1.4-6.[address] [facility] Comment on above: Performed By: #### L IPID #### [facility] [address] [address] [address] Parth Lucero Neutrophils/100 WBC (Bld) 66.8 % Normal 43.0-75.0 [facility] Comment on above: Performed By: #### L IPID #### [facility] [address] [address] [address] Parth Lucero Platelet mean volume (Bld) [Entitic vol] 9.4 fL Critically low 9.5-13.5 [facility] Comment on above: Performed By: #### L IPID #### [facility] [address] [place] [address] Dr. Parth Lucero PLT 320 103/ul Normal 150-450 [facility] Comment on above: Performed By: #### L IPID #### [facility] [address] [place] [address] Dr. Parth Lucero RBC 4.11 106/ul Critically low 4.20-5.40 [facility] Comment on above: Performed By: #### L IPID #### [facility] [address] [place] [address] Dr. Parth Lucero WBC 9.8 103/ul Normal 4.0-11.0 [facility] Comment on above: Performed By: #### L IPID #### [facility] [address] [place] [address] Dr. Parth Lucero CULTURE URINEon 06-23-2021 CULTURE URINE Culture Observations : MODERATE GROWTH OF MIXED GENITAL BERNARDINO. NO POTENTIAL PATHOGENS SEEN. Normal [facility] Comment on above: Performed By: #### U RCX #### [facility] [address] [place] [address] Dr. Parth Lucero GLYCOHEMOGLOBIN A1Con 2021 ADA RECOMMENDATION ADA THERAPEUTIC TARGET 6.0 - 7.0 ACTION SUGGESTED > 7.[address] [facility] Comment on above: Performed By: #### A 1C #### [facility] [address] [place] [address] Dr. Parth Lucero Glucose [Mass/Vol] 105 mg/dL Normal [facility] Comment on above: Performed By: #### A 1C #### [facility] [address] [place] [address] Dr. Parth Lucero HbA1c (Bld) [Mass fraction] 5.3 % Normal <=6.0 [facility] Comment on above: Performed By: #### A 1C #### [facility] [address] [place] [address] Dr. Parth Lucero TAYLA BOX TEST PT SEND OUTo n 06-23-2021 SENT TO REF LAB 06/23/[address] [facility] Comment on above: Performed By: #### [id number] #### [facility] [address] [place] [address] Dr. Parth Lucero TYPE AND SCREENon 06-23-2021 TYPE AND SCREEN Negative Normal [facility] Comment on above: Performed By: #### [id number] #### [facility] [address] [place] [address] Dr. Parth Lucero US PREG TVon 06-15-2021 [...] by: ALONSO SANDERS Date: 2021-06-15 09:[address] [facility] Auth for Release of Medical Recordson 06-05-2021 Auth for Release of Medical Records [id number]. [id number] Normal [facility] Vital Signs Date Time Vital Sign Value Performing Clinician Facility 07-18-2024 16:25-0500 Body mass index (BMI) [Ratio] 28.84 kg/m2 PR Slides Work Phone: [facility] 07-18-2024 16:25-0500 Body weight 76.2 kg Jorge Luis Katrin DO Work Phone: [facility] 07-18-2024 16:25-0500 Diastolic blood pressure 76 mm[Hg] Jorge Luis Katrin [employer] Work Phone: [facility] 07-18-2024 16:25-0500 Systolic blood pressure 114 mm[Hg] Jorge Luis Katrin [employer] Work Phone: [facility] 07-11-2024 16:13-0500 Body mass index (BMI) [Ratio] 29.15 kg/m2 Bibiana Arvada PA Work Phone: [facility] 07-11-2024 16:13-0500 Body weight 77.02 kg Bibiana Quinton PA Work Phone: [facility] 07-11-2024 16:13-0500 Diastolic blood pressure 74 mm[Hg] Bibiana Quinton PA Work Phone: [facility] 07-11-2024 16:13-0500 Systolic blood pressure 112 mm[Hg] Bibiana Quinton PA Work Phone: [facility] 06-27-2024 16:21-0500 Body mass index (BMI) [Ratio] 27.98 kg/m2 Jorge Luis Katrin DO Work Phone: [facility] 06-27-2024 16:21-0500 Body weight 73.94 kg Jorge Luis Katrin DO Work Phone: [facility] 06-27-2024 16:21-0500 Diastolic blood pressure 70 mm[Hg] Jorge Luis Katrin DO Work Phone: [facility] 06-27-2024 16:21-0500 Systolic blood pressure 112 mm[Hg] Jorge Luis Katrin DO Work Phone: [facility] 06-06-2024 16:04-0500 Body mass index (BMI) [Ratio] 27.46 kg/m2 Bibiana Quinton PA Work Phone: [facility] 06-06-2024 16:04-0500 Body weight 72.58 kg Bibiana Quinton PA Work Phone: [facility] 06-06-2024 16:04-0500 Diastolic blood pressure 66 mm[Hg] Bibiana Arvada PA Work Phone: [facility] 06-06-2024 16:04-0500 Systolic blood pressure 110 mm[Hg] Bibiana Quinton PA Work Phone: [facility] 05-21-2024 16:56-0500 Body mass index (BMI) [Ratio] 27.09 kg/m2 Jorge Luis Katrin DO Work Phone: [facility] 05-21-2024 16:56-0500 Body weight 71.58 kg Jorge Luis Katrin DO Work Phone: [facility] 05-21-2024 16:56-0500 Diastolic blood pressure 64 mm[Hg] Jorge Luis Katrin DO Work Phone: [facility] 05-21-2024 16:56-0500 Systolic blood pressure 106 mm[Hg] Jorge Luis Katrin DO Work Phone: [facility] 05-07-2024 16:39-0500 Body mass index (BMI) [Ratio] 26.09 kg/m2 Bibiana Arvada PA Work Phone: [facility] 05-07-2024 16:39-0500 Body weight 68.95 kg Bibiana Arvada PA Work Phone: [facility] 05-07-2024 16:39-0500 Diastolic blood pressure 68 mm[Hg] Bibiana Quinton PA Work Phone: [facility] 05-07-2024 16:39-0500 Systolic blood pressure 112 mm[Hg] Bibiana Arvada PA Work Phone: [facility] 04-16-2024 14:18-0400 Body height 160 cm Jeet Tavares MD Work Phone: [facility] 04-16-2024 14:18-0400 Body mass index (BMI) [Ratio] 26.39 kg/m2 Jeet Tavares MD Work Phone: [facility] 04-16-2024 14:18-0400 Body weight 67.59 kg Jeet Tavares MD Work Phone: [facility] 04-16-2024 14:18-0400 Diastolic blood pressure 78 mm[Hg] Jeet Tavares MD Work Phone: [facility] 04-16-2024 14:18-0400 Heart rate 102 /min Jeet Tavares MD Work Phone: [facility] 04-16-2024 14:18-0400 Systolic blood pressure 133 mm[Hg] Jeet Tavares MD Work Phone: [facility] 04-03-2024 14:57-0400 Body mass index (BMI) [Ratio] 25.4 kg/m2 Jorge Luis Katrin DO Work Phone: [facility] 04-03-2024 14:57-0400 Body weight 67.13 kg Jorge Luis Katrin DO Work Phone: [facility] 04-03-2024 14:57-0400 Diastolic blood pressure 64 mm[Hg] Jorge Luis Katrin DO Work Phone: [facility] 04-03-2024 14:57-0400 Systolic blood pressure 100 mm[Hg] Jorge Luis Katrin DO Work Phone: [facility] 03-05-2024 16:05-0400 Body mass index (BMI) [Ratio] 23.54 kg/m2 Bibiana MONROY Work Phone: [facility] 03-05-2024 16:05-0400 Body weight 62.2 kg Bibiana MONROY Work Phone: [facility] 03-05-2024 16:05-0400 Diastolic blood pressure 74 mm[Hg] Bibiana MONROY Work Phone: [facility] 03-05-2024 16:05-0400 Systolic blood pressure 112 mm[Hg] Bibiana MONROY Work Phone: [facility] 02-06-2024 15:48-0400 Body mass index (BMI) [Ratio] 23.25 kg/m2 Jorge Luis Katrin DO Work Phone: [facility] 02-06-2024 15:48-0400 Body weight 61.43 kg Jorge Luis Katrin DO Work Phone: [facility] 02-06-2024 15:48-0400 Diastolic blood pressure 74 mm[Hg] Jorge Luis Katrin DO Work Phone: [facility] 02-06-2024 15:48-0400 Systolic blood pressure 112 mm[Hg] Jorge Luis Katrin DO Work Phone: [facility] 08-18-2021 18:08-0500 Body weight 63.[address] RODNEY CAPUTO [facility] Comment on above: Performed By: #### [id number] #### [facility] [address] [place] [address] Dr. Parth Lucero Encounters Encounter Date Encounter Type Care Provider Facility Start: 07-18-2024 End: 07-18-2024 flow sheet Jorge Luis Katrin DO Work Phone: [facility] Comment on above: Third trimester preg alfredo; 36 weeks gestation of Start: 07-18-2024 End: 07-18-2024 Bamboo flowsheet Jorge Luis Katrin DO Work Phone: [facility] Start: 07-18-2024 End: 07-18-2024 Bamboo flowsheet Jorge Luis Katrin DO Work Phone: [facility] Start: 07-16-2024 End: 07-16-2024 Clinisync Result Encounter Jorge Luis Katrin DO Work Phone: [facility] External Department Unsolicited Start: 07-16-2024 End: 07-16-2024 Clinisync Result Encounter Jorge Luis Katrin DO Work Phone: [facility] Unsolicited Start: 07-11-2024 End: 07-11-2024 flow sheet Bibiana MONROY Work Phone: [facility] Comment on above: Third trimester preg alfredo; 35 weeks gestation of Start: 07-11-2024 End: 07-11-2024 ambulatory BIBIANA ALCANTARA Not Available Start: 07-11-2024 End: 07-11-2024 Bamboo flowsheet Bibaina MONROY Work Phone: [facility] Start: [...] of Start: 06-06-2024 End: 06-06-2024 Bamboo flowsheet Bibiana MONROY Work Phone: [facility] Start: 06-06-2024 End: 06-06-2024 Bamboo flowsheet Bibiana MONROY Work Phone: [facility] Start: 05-21-2024 End: 05-21-2024 ambulatory JORGE LUIS KATRIN Not Available Start: 05-21-2024 End: 05-21-2024 flow sheet Jorge Luis Katrin DO Work Phone: [facility] Comment on above: 28 weeks gestation o f ; Third trimester Start: 05-21-2024 End: 05-21-2024 Bamboo flowsheet Jorge Luis Katrin DO Work Phone: [facility] Start: 05-21-2024 End: 05-21-2024 Bamboo flowsheet Jorge Luis Katrin DO Work Phone: [facility] Start: 05-15-2024 End: 05-15-2024 ambulatory JORGE LUIS R KATRIN [facility] Start: 05-07-2024 End: 05-07-2024 flow sheet Bibiana MONROY Work Phone: [facility] Comment on above: 26 weeks gestation o f ; Second trimester ; Elevated glucose tolerance test Start: 05-07-2024 End: 05-07-2024 ambulatory BIBIANA ALCANTARA Not Available Start: 05-07-2024 End: 05-07-2024 Bamboo flowsheet Bibiana MONROY Work Phone: [facility] Start: 05-07-2024 End: 05-07-2024 Bamboo flowsheet Bibiana MONROY Work Phone: [facility] Start: 05-05-2024 End: 05-05-2024 Clinisync Result Encounter Jorge Luis Katrin DO Work Phone: [facility] External Department Unsolicited Start: 05-05-2024 End: 05-05-2024 Clinisync Result Encounter Jorge Luis Katrin DO Work Phone: [facility] External Department Unsolicited Start: 04-28-2024 End: 04-28-2024 Clinisync Result Encounter Jorge Luis Katrin DO Work Phone: [facility] Unsolicited Start: 04-28-2024 End: 04-28-2024 Clinisync Result Encounter Jorge Luis Katrin DO Work Phone: [facility] External Department Unsolicited Start: 04-16-2024 End: 04-16-2024 Office outpatient new 45 minutes Jeet Tavares MD Work Phone: [facility] Comment on above: Echogenic focus of h eart of fetus affecting antepartum care of mother, single or unspecified fetus (Primary Dx); Low lying placenta, antepartum; Suspected condition not found; Family history of congenital heart defect; 23 weeks gestation of Start: 04-16-2024 End: 04-16-2024 ambulatory [facility] TAV[facility] Start: 04-11-2024 End: 04-11-2024 Chart abstracting Jeet Tavares MD Work Phone: [facility] Start: 04-03-2024 End: 04-03-2024 flow sheet Jorge Luis Katrin DO Work Phone: [facility] Comment on above: 21 weeks [...] Clinisync Result Encounter Bibiana MONROY Work Phone: [facility] External Department Unsolicited Start: 03-28-2024 End: 03-31-2024 Clinisync Result Encounter Bibiana MONROY Work Phone: [facility] External Department Unsolicited Start: 03-05-2024 End: 03-05-2024 Patient encounter procedure Bibiana MONROY Work Phone: [facility] Healthcare Work Phone: Start: 03-05-2024 End: 03-05-2024 Periodic preventive med est patient 18-39 yrs Bibiana MONROY Work Phone: [facility] Comment on above: Well woman exam with routine gynecological exam; Second trimester ; Vaginal discharge; STD exposure; Screening, , for anatomic survey Start: 03-05-2024 End: 03-05-2024 ambulatory BIBIANA ALCANTARA Not Available Start: 03-05-2024 End: 03-05-2024 Bamboo flowsheet Bibiana MONROY Work Phone: [facility] Start: 03-05-2024 End: 03-09-2024 Bamboo flowsheet Bibiana MONROY Work Phone: [facility] Start: 03-05-2024 End: 03-09-2024 Clinisync Result Encounter Bibiana Rossyayo MONROY Work Phone: [facility] External Department Unsolicited Start: 03-05-2024 End: 03-07-2024 External Result Encounter Bibiana Alcantara ELIANA Work Phone: [facility] External Department Unsolicited Start: 02-06-2024 End: 02-06-2024 flow sheet Jorge Luis Katrin DO Work [...] (routine) without abnormal findings DR RODNEY CAPUTO [facility] Start: 08-26-2021 End: 08-26-[address] RODNEY CAPUTO Facility:[facility] Start: 08-26-2021 End: 08-26-2021 Encounter for gynecological examination (general) (routine) without abnormal findings DR RODNEY CAPUTO Facility:[facility] Start: 08-11-2021 End: 08-12-[address] RODNEY CAPUTO Facility:[facility] Start: 06-23-2021 End: 06-24-[address] RODNEY CAPUTO Facility:[facility] Start: 06-15-2021 End: 06-16-[address] RODNEY CAPUTO Facility:[facility] Procedures Date Procedure Procedure Detail Performing Clinician Start: 07-18-2024 Urnls dip stick/tabl et rgnt non-auto w/o micrscp Jorge Luis Katrin DO Work Phone: Start: 07-16-2024 [facility] UA (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 Jorge Luis Katrin DO Work Phone: Start: 07-11-2024 Urnls dip stick/tabl et rgnt non-auto w/o micrscp Bibiana MONROY Work Phone: Start: 06-27-2024 Urnls dip stick/tabl et rgnt non-auto w/o micrscp Jorge Luis Katrin DO Work Phone: Start: 06-06-2024 Urnls dip stick/tabl et rgnt non-auto w/o micrscp Bibiana MONROY Work Phone: Start: 05-21-2024 Urnls dip stick/tabl et rgnt non-auto w/o micrscp Jorge Luis Katrin DO Work Phone: Start: 05-07-2024 Urnls dip stick/tabl et rgnt non-auto w/o micrscp Bibiana MONROY Work Phone: Start: 05-05-2024 GLUCOSE TOLERANCE 3 HOUR [facility] DO Work Phone: Start: 04-28-2024 ALL CBC WITH AUTO DIFF [facility] DO Work Phone: Start: 04-03-2024 Urnls dip stick/tabl et rgnt non-auto w/o micrscp [facility] DO Work Phone: Start: 03-28-2024 AFP, SERUM, [...] auto t hin layer prep mnl screen [facility] DO Work Phone: Start: 03-05-2024 URETHRITIS/DISCHARGE PLUS VAGINITIS (HTRX) Bibiana MONROY Work Phone: Start: 02-06-2024 Urnls dip stick/tabl et rgnt non-auto w/o micrscp [facility] DO Work Phone: Start: 01-27-2024 Antibody screen [...] Screening for malign ant neoplasm of cervix [facility] Start: 04-16-2025 Adult BMI Screening Adult BMI Screen ing [facility] Start: 04-16-2025 Tobacco Screening Tobacco Screening [facility] Start: 07-18-2024 End: 07-18-2024 Patient encounter procedure [facility] Comment on above: Arrived Start: 07-18-2024 End: 07-18-2025 CULTURE, GROUP B STREP WITH SUSCEPTIBLITY CULTURE, GROUP B STREP WITH SUSCEPTIBLITY Lab Routine Third trimester Expected: 07/18/2024, Expires: 07/18/2025 [facility] Healthcare Work Phone: Comment on above: Expected: 07/18/2024 , Expires: 07/18/2025 Start: 07-11-2024 End: 07-11-2024 Patient encounter procedure [facility] Comment on above: Arrived Start: 06-27-2024 End: 06-27-2024 Patient encounter procedure 06/27/2024 3:40 PM EST Routine [facility] [address] [place] [address] Jorge Luis Wilkes, DO [address] [place] [address] [facility] Start: 06-27-2024 End: 06-27-2025 US for US OB follow up transabdominal approach Imaging Routine Excessive growth affecting management of , antepartum, single or unspecified fetus Expected: 06/27/2024, Expires: 06/27/2025 [facility] Work Phone: Comment on above: Expected: 06/27/2024 , Expires: 06/27/2025 Start: 05-21-2024 End: 05-21-2024 Patient encounter procedure 05/21/2024 3:50 PM EST Routine [facility] [address] [place] [id number] Jorge Luis Wilkes, DO [address] [place] [address] [facility] Start: 05-15-2024 End: 05-15-2024 Patient encounter procedure 05/15/2024 10:15 AM EST Appointment [facility] - Ultrasound [address] [place] [address] [facility] - Ultrasound Start: 05-07-2024 End: 05-07-2024 Patient encounter procedure [facility] Comment on above: Arrived Start: 04-16-2024 End: 04-16-2025 US MFM with or without consult US MFM with or without consult Imaging Routine Echogenic focus of heart of fetus affecting antepartum care of mother, single or unspecified fetus Low lying placenta, antepartum Expected: 04/16/2024, Expires: 04/16/2025 [facility] Work Phone: Comment on above: Expected: 04/16/2024 , Expires: 04/16/2025 Start: 04-16-2024 End: 04-16-2024 Patient encounter procedure [facility] Start: 04-04-2024 End: 04-04-2024 Patient encounter procedure 04/04/2024 3:10 PM EDT Routine [facility] [address] [place] [id number] Jorge Luis Wilkes, DO [address] [place] [address] [facility] Start: 04-03-2024 End: 04-03-2024 Patient encounter procedure 04/03/2024 2:20 PM EDT Routine [facility] [address] [place] [address] Jorge Luis Wilkes DO [address] [place] [address] Arrived [facility] Comment on above: Arrived Start: 04-03-2024 End: 04-03-2025 CBC panel - Blood by Automated count CBC Lab Routine Diabetes mellitus screening Expected: 04/03/2024 (Approximate), Expires: 04/03/2025 [facility] Comment on above: Expected: 04/03/2024 (Approximate), Expires: 04/03/2025 Start: 04-03-2024 End: 04-03-2025 Measurement of glucose 1 hour after glucose challenge for glucose tolerance test Glucose tolerance, 1 hour Lab Routine Diabetes mellitus screening Expected: 04/03/2024 (Approximate), Expires: 04/03/2025 [facility] Comment on above: Expected: 04/03/2024 (Approximate), Expires: 04/03/2025 Start: 04-03-2024 End: 04-03-2025 US for US OB INCOMPLETE ANATOMY Imaging Routine Encounter for follow-up ultrasound of anatomy Expected: 04/03/2024 (Approximate), Expires: 04/03/2025 [facility] Work Phone: Comment on above: Expected: 04/03/2024 (Approximate), Expires: 04/03/2025 Start: 03-05-2024 End: 03-05-2024 Patient encounter procedure [facility] Comment on above: Arrived Start: 03-05-2024 End: 09-02-2024 Alpha fetoprotein, maternal Alpha fetoprotein, maternal Lab Routine Second trimester Expected: 03/05/2024 (Approximate), Expires: 09/02/2024 [facility] Comment on above: Expected: 03/05/2024 (Approximate), Expires: 09/02/2024 Start: 03-05-2024 End: 03-05-2025 US for US OB ANATOMY SINGLE W US OB CERVICAL LENGTH Imaging Routine Screening, , for anatomic survey Expected: 03/05/2024 (Approximate), Expires: 03/05/2025 [facility] Comment on above: Expected: 03/05/2024 (Approximate), Expires: 03/05/2025 Start: 02-19-2024 Influenza vaccination P [facility] Start: 10-15-2021 Screening for malign ant neoplasm of cervix [facility] Start: 10-15-2012 Screening for malign ant neoplasm of cervix Pap Smear [facility] Start: 10-15-2010 DTaP,Tdap and Td Vaccines (1 - Tdap) DTaP,Tdap and Td Vaccines (1 - Tdap) [facility] Start: 10-15-2009 Adult BMI Follow Up Plan Adult BMI Follow Up Plan [facility] Start: 10-15-2009 Adult BMI Screening Adult BMI Screen ing [facility] Start: 2003 Depression Screening Depression Scre ening [facility] Start: 2003 Tobacco Screening Tobacco Screening [facility] CHLAMYDIA TRACHOMATI S (GENITO/STI) CHLAMYDIA TRACHOMATIS (GENITO/STI) Lab Routine STD exposure Ordered: 03/05/2024 [facility] Comment on above: Ordered: 03/05/2024 Cytology Cervical or vaginal smear or scraping study Pap Smear Pathology and Cytology Routine Well woman exam with routine gynecological exam Ordered: 03/05/2024 [facility] Work Phone: Comment on above: Ordered: 03/05/2024 Human papilloma viru s DNA [Presence] in Unspecified specimen by Probe with amplification HPV DNA probe, amplified Microbiology Routine Well woman exam with routine gynecological exam Ordered: 03/05/2024 [facility] Comment on above: Ordered: 03/05/2024 Neisseria gonorrhoea e DNA [Presence] in Unspecified specimen by RIGOBERTO with probe detection Neisseria gonorrhea DNA probe, direct Lab Routine STD exposure Ordered: 03/05/2024 [facility] Comment on above: Ordered: 03/05/2024 SURESWAB(R) ADVANCED VAGINITIS PLUS, TMA SURESWAB(R) ADVANCED VAGINITIS PLUS, TMA Pathology and Cytology Routine Vaginal discharge Ordered: 03/05/2024 [facility] Comment on above: Ordered: 03/05/2024 Payers Date Payer Category Payer Private Health Insurance [employer] [id number] 2017 Unknown [employer] [id number] 2017-Present [address] [place] [address] [id number] 1991 Unknown [id number] 2.16840.1.116909.3.579.2. 593 1991 Unknown [id number] 2.840.1.482042.3.579.2. 593 1991 Unknown [id number] 2.16840.1.290682.3.579.2. 593 1991 Unknown [id number] 2.16840.1.972021.3.579.2. 593 1991 Unknown [id number] 2.840.1.746012.3.579.2. 593 1991 Unknown [id number] 2.16840.1.825308.3.579.2. 593 1991 Unknown [id number] 2.16840.1.859929.3.579.2. 593 1991 Unknown [id number] 2.16840.1.853581.3.579.2. 593 1991 Unknown [id number] 2.16840.1.736629.3.579.2. 593 1991 Unknown [id number] 2.16840.1.727710.3.579.2. 593 1991 Unknown [id number] 2.16840.1.745355.3.579.2. 593 1991 Unknown [id number] 2.16.840.1.639623.3.579.2. 59 1991 Unknown [id number] 2.16.840.1.639395.3.579.2. 593 1991 Unknown [id number] 2.16840.1.980705.3.579.2. 59 1991 Unknown [id number] 2.16.840.1.016602.3.579.2. 593 1991 Unknown [id number] 2.840.1.206969.3.579.2. 1285 1991 Unknown [id number] 2.840.1.084542.3.579.2. 1285 1991 Unknown [id number] 2.840.1.070773.3.579.2. 1285 1991 Unknown [id number] 2.840.1.384348.3.579.2. 1258 1991 Unknown [id number] 2.840.1.403774.3.579.2. 1258 1991 Unknown [id number] 2.16840.1.189382.3.579.2. 1258 1991 Unknown [id number] 2.840.1.219305.3.579.2. 1258 1991 Unknown [id number] 2.16840.1.418910.3.579.2. 1258 1991 Unknown [id number] 2.16840.1.119472.3.579.2. 1258 1991 Unknown [id number] 2.16840.1.866199.3.579.2. 1258 1991 Unknown [id number] 2.16840.1.066914.3.579.2. 1258 1991 Unknown [id number] 2.16.840.1.196411.3.579.2. 9 1991 Unknown [id number] 2.16.840.1.379504.3.579.2. 1258 1991 Unknown [id number] 2.16.840.1.975113.3.579.2. 9 1991 Unknown [id number] 2.16.840.1.308346.3.579.2. 1258 1991 Unknown [id number] 2.16.840.1.529834.3.579.2. 1258 1991 Unknown [id number] 2.16.840.1.702837.3.579.2. 1259 1959 Self-pay 1959 Unknown [id number] [employer] are - PPO [employer] Member Subscriber Plan / Payer (Effective for All Dates) Name: Cindy Rocha Relation to Subscriber: Self Name: Cindy Rocha Payer ID: Not on file Type: Not on file Address: [place] [id number] Unknown [id number] 2.16.840.1.767389.3.579.2. 593 Social History Date Type Detail Facility Start: 10-12-2023 End: 04-11-2024 Tobacco smoking status [facility]IS Never smoked tobacco [facility] Start: 10-12-2023 End: 04-11-2024 Tobacco use and exposure Smokeless tobacco non-user [facility] Start: 02-06-2024 End: 05-21-2024 Alcoholic beverage intake Ex-drinker (finding) [facility] Start: 12-07-2023 End: 02-06-2024 Alcoholic beverage intake [facility] Start: 12-07-2023 End: 04-16-2024 Tobacco use panel [facility] Start: 11-20-[address] [facility] Start: 1990 Sex assigned at Not [facility] file [facility] Start: 04-10-2024 Sex Female (finding) [facility] Within the past 12 months we worried whether our food would run out before we got money to buy more. Never True [facility] Goals Date Patient Goal Desired Activity /State Personal health goal Clinical Notes 02-06-2024 to 07-18-2024 ELIANA Candelaria - 07/18/2024 4:00 PM ELIANA Mesa - 07/11/2024 3:50 PM Minda Uriarte LPN - 06/27/2024 3:40 PM ELIANA Mesa - 06/06/2024 3:50 PM Marisa Alcantara, ELIANA - 05/21/2024 3:50 PM EST Note Date & Type Note Facility 07-18-2024 History of Present illness Narrative Reason for [...] reviewed. Vitals: Estimated body mass index is 28.84 kg/m as calculated from the following: Height as of 12/07/23: 5' 4 . Weight as of this encounter: 168 lb. BP: 114/76 Patient's last menstrual period was 11/06/2023. ASSESSMENT & PLAN ICD-10-CM 1. Third trimester Z34.93 POCT urinalysis dipstick manually resulted CULTURE, GROUP B STREP WITH SUSCEPTIBLITY CULTURE, GROUP B STREP WITH SUSCEPTIBLITY 2. 36 weeks gestation of Z3A.36 Patient is doing well but has complaints of being tired and having maternal discomfort due to . Patient verbalized frequent movement and was instructed to perform kick counts three times per day. labor precautions were given, LARC consent was signed/declined, and GBS was obtained. Cervical check was performed and patient is 3cm dilated. Orders Placed This Encounter Procedures CULTURE, GROUP B STREP WITH SUSCEPTIBLITY POCT urinalysis dipstick manually resulted Follow Up: Patient is to return to office in 1 week for routine OB appointment Documented by ELIANA Candelaria on behalf of: Jorge Luis Wilkes DO documented in this encounter [facility] 07-11-2024 History of Present illness Narrative Reason [...] of: ELIANA Candelaria documented in this encounter [facility] 06-27-2024 History of Present illness Narrative Reason [...] Arthritis Mother Melita Campa Diabetes Mother Melita [place] Rheum arthritis Mother Melita [place] Hypertension Father Bryant Campa SURGICAL HISTORY Past [...] nursing note reviewed. Exam conducted with a dirt shoveler present. Vitals: Estimated body mass index is [...] Luis Wilkes DO documented in this encounter [facility] 06-06-2024 History of Present illness Narrative Reason [...] of: ELIANA Candelaria documented in this encounter [facility] 05-21-2024 History of Present illness Narrative Reason [...] Luis Wilkes DO documented in this encounter [facility] 05-07-2024 History of Present illness Narrative Reason [...] Pt was scheduled to go back to [facility] in 4 weeks for a f/up US visit for Echo focus of fetus. Pt states she is unable to make the appt and would like to have the US done here in [place]. Follow Up: Patient is to return to office in 2 week for routine OB appointment. Documented by Maggie Prieto MA on behalf of: ELIANA Candelaria documented in this encounter [facility] 04-16-2024 History of Present illness Narrative [facility] [...] Start Date End Date Taking? Authorizing Provider [id number] 28-800 mg-mcg tablet Take 1 tablet [...] continue with routine care in your office [facility], the CDC, and other organizations representing maternal and public health professionals recommend that , , and lactating people and those considering receive the COVID-19 vaccination. Vaccination is the best method to reduce maternal and complications of SARS-CoV-2 infection. This document was created with [employer] technology. Though I make every effort to review the dictation as it is transcribed, on occasion the spoken word can be misinterpreted by the technology leading to inappropriate words, phrases, or sentences. This note is addressed to the requesting provider as a consultation for clinical guidance. Specific medical abbreviations are occasionally used and those are generally approved by the [place]?Board of?Obstetrics and?Gynecology?as well as?Steve palmer abbreviations. The above plan of care was based solely on the diagnoses for which a consultation was requested. ?More frequent testing may be indicated based on her other medical/obstetrical conditions. The management of other or medical conditions is beyond the scope of requested consultation and will continue to be followed by the primary client server programmer or primary care provider. Thank you for [...] procedures Referring and communicating with other health rn managed care (not separately reported) Documenting clinical information in [...] yes Have you been seen here at [facility] in a previous ? no Recent ER visits or hospitalizations? no Bring blood sugar log or meter with you today? (Please bring them with you for every visit at [facility]) n/a Flu vaccine (Apr-August)? no Any concerns that you would like me to mention to the provider today? no documented [facility] this encounter [facility] History of Present illness Narrative Reason [...] nursing note reviewed. Exam conducted with a dirt shoveler present. Vitals: Estimated body mass index is [...] Luis Wilkes DO documented in this encounter [facility] 03-05-2024 History of Present illness Narrative Reason [...] nursing note reviewed. Exam conducted with a dirt shoveler present. Vitals: Estimated body mass index is [...] obtained without difficulty and [facility]. Orders Placed This [...] of: ELIANA Candelaria documented in this encounter [facility] 02-06-2024 History of Present illness Narrative Reason [...] nursing note reviewed. Exam conducted with a dirt shoveler present. Vitals: Estimated body mass index is 23.25 kg/m as calculated from the following: Height as of 24: 5' 4 . Weight as of this [...] or undercooked meat, and stay away from [facility]. Patient has been consulted regarding any further [...] weeks gestation of [facility] Diagnosis 26 weeks gestation [...] HealthcareEvaluation note* Diagnosis Third trimester state, incidental 36 weeks gestation of documented in this [facility]ructionsNot on filedocumented in this encounterProMedipa Health SystemInstructionsNot on filedocumented in this encounterProAult[facility] Summary Purpose Family History No [...] section and content) DATE CREATED AUTHOR 06/06/[address] [facility] DATE CREATED AUTHOR AUTHOR'S ORGANIZ ATION 05/12/2022 [facility] DATE CREATED AUTHOR AUTHOR'S ORGANIZ ATION 04/17/2024 [facility] DATE CREATED AUTHOR AUTHOR'S ORGANIZ ATION 05/17/2024 [facility] DATE CREATED AUTHOR AUTHOR'S ORGANIZ ATION 07/13/2024 [facility] EPIC Care Teams (unrecognized sec tion and content) Ms Sql Developer 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 Specialty Start Date End Date Tamir Fuentes MD [address] [place] [address] PCP - General Family Medicine 10/12/23 Merlene Choe MD [address] [place] [address] Referring Physician Internal Medicine 10/12/23 Ms Sql Developer 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 Specialty Start Date End Date Tamir Fuentes MD [address] [place] [address] PCP - General Family Medicine 10/12/23 Merelne Choe MD [address] [place] [phone] Referring Physician Internal Medicine 10/12/23 Ms Sql Developer 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 Specialty Start Date End Date Tamir Fuentes MD [address], [id number] PCP - General Family Medicine 10/12/23 Bibiana Alcantara PA [address] [place] [address] [address], [facility] PCP - Medical [place] [employer] 06/20/17 06/19/99 Merlene Choe MD [address] [place] [phone] Referring Physician Internal Medicine 10/12/23 Ms Sql Developer 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 Specialty Start Date End Date Tamir Fuentes MD [address] [place] [id number] PCP - General Family Medicine 10/12/23 Bibiana Alcantara PA [address] [place] [address] [place] [address] PCP - Medical [place] [employer] 06/20/17 06/19/99 Merlene Choe MD [address] [place] [phone] Referring Physician Internal Medicine 10/12/23 Ms Sql Developer 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 Specialty Start Date End Date Tamir Fuentes MD [address] [place] [address] PCP - General Family Medicine 10/12/23 Bibiana Alcantara PA [address] [place] [address] [place] [address] PCP - Medical [place] [employer] 06/20/17 06/19/99 Merlene Choe MD [address], [phone] Referring Physician Internal Medicine 10/12/23 Ms Sql Developer 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 Specialty Start Date End Date Tamir Fuentes MD [address], [facility] PCP - General Family Medicine 10/12/23 Bibiana Alcantara PA [address] [place] [address] [place] [address] PCP - Medical [place] [employer] 06/20/17 06/19/99 Merlene Choe MD [address] [place] [phone] Referring Physician Internal Medicine 10/12/23 Ms Sql Developer 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 Specialty Start Date End Date Tamir Fuentes MD [address], [place] [id number] PCP - General Family Medicine 10/12/23 Merlene Choe MD [address] [place] [phone] Referring Physician Internal Medicine 10/12/23 Ms Sql Developer 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 Specialty Start Date End Date Tamir Fuentes MD [address] [place] [address] PCP - General Family Medicine 10/12/23 Merlene Choe MD [address] [place] [phone] Referring Physician Internal Medicine 10/12/23 Ms Sql Developer 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 Specialty Start Date End Date Tamir Fuentes MD [address] [place] [address] PCP - General Family Medicine 10/12/23 Bibiana Alcantara PA [facility] [place] [address] PCP - Medical [place] [employer] 06/20/17 06/19/99 Merlene Choe MD [address] [place] [phone] Referring Physician Internal Medicine 10/12/23 Ms Sql Developer 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 Specialty Start Date End Date Tamir Fuentes MD [address] [place] [address] PCP - General Family Medicine 10/12/23 Bibiana Alcantara PA [address] [place] [address] [place] [address] PCP - Medical [place] [employer] 06/20/17 06/19/99 Merlene Choe MD [address] [place] [phone] Referring Physician Internal Medicine 10/12/23 Ms Sql Developer 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 Specialty Start Date End Date Tamir Fuentes MD [address] [place] [address] PCP - General Family Medicine 10/12/23 Bibiana Alcantara PA [address] [place] [address] [place] [address] PCP - Medical [place] [employer] 06/20/17 06/19/99 Merlene Choe MD [address] [place] [phone] Referring Physician Internal Medicine 10/12/23 Ms Sql Developer 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 Specialty Start Date End Date Tamir Fuentes MD [address] [place] [address] PCP - General Family Medicine 10/12/23 Bibiana Alcantara PA [address] [place] [address] [place] [address] PCP - Medical [place] [employer] 06/20/17 06/19/99 Merlene Choe MD [address] [place] [phone] Referring Physician Internal Medicine 10/12/23 Reason for [...] BE BASED ON THE PRIMARY CLINICAL RECORDS. [facility] [facility]. provides no warranty or guarantee of the accuracy or completeness of information in this document.
--- OUTSIDE RECORDS SUMMARY | 2024-07-19 07:05 | XMS_ITS | CCD ---
Author Organization [facility] Care Team Providers Care Waste Picker Name Role Phone HARSHAL, DR STEVENS Attending [...] Unavailable Tamir Fuentes MD Primary Care Provider [phone] Unavailable Primary Care Provider Unavailabl e KATRIN, [...] Facility (1 source) Penicillin Drug Allergy [facility] Repository (20 sources) Penicillin G Drug Allergy 4 [facility] Work Phone: (20 sources) Penicillins; Translations: [PENICILLINS] Drug Allergy 4 [facility] (2 sources) Penicillins Propensity to adverse reactions to drug 4 [facility] Medications Current Medications Medication Drug [...] chew.. 30 capsule 11 06/27/2024 06/27/2025 Active [id number] fumarate-FA 28-800 mg-mcg tablet (2 sources) take 1 tablet by mouth in the morning [id number] fumarate-FA 28-800 mg-mcg tablet Take 1 tablet [...] UA Negative Negative - 4(70) +++ mg/dL [facility] Blood, UA Negative Negative - 50 Grey/mcL [facility] Clarity, UA Clear [facility] Color, UA Yellow [facility] Glucose, UA Negative Negative - 1999(110) ++++ mg/dL [facility] Interpretation and review of laboratory results Abnormal [facility] Ketones, UA Positive Negative - 160(16) ++++ mg/dL [facility] Comment on above: trace Leukocytes, UA Positive Negative - 500+++ Juan Alberto/mcL [facility] Comment on above: small Nitrite, UA Negative Negative - Positive [facility] pH, UA 7 5 - 9 [facility] Protein, UA Negative Negative - 1999(20) ++++ mg/dL [facility] Spec Grav, UA 1.015 1 - 1.03 [facility] Urobilinogen, UA 1.0 0.2 - 12 mg/dL [facility] UA (CLEAN/CATCH) PHARMACY MANAGER/BERTRAND RO IF IND.on 07-16-2024 BILIRUBIN URINE Negative NEGATIVE [facility] BLOOD URINE Negative NEGATIVE [facility] Clarity (U) CLEAR CLEAR [facility] Color (U) LT. YELLOW YELLOW [facility] GLUCOSE URINE UA Negative NEGATIVE mg/dL [facility] Interpretation and review of laboratory results Abnormal [facility] Ketones Ql (U) Negative NEGATIVE mg/dL [facility] Leukocyte esterase Test strip Ql (U) Negative NEGATIVE [facility] NITRITE URINE Negative NEGATIVE [facility] pH (U) 6.5 [pH] 5.0 - 9.0 [facility] PROTEIN URINE Negative NEG/TRACE mg/dL [facility] SPECIFIC GRAVITY URINE <=1.005 Abnormal 1.005 - 1.025 [facility] URINE MICROSCOPIC INDICATED NO [facility] UROBILINOGEN URINE 0.2 EU/dL 0.2 - 1.0 EU/dL [facility] Urinalysis macro (dipstick) panel (U)on 07-11-2024 Bilirubin, UA Negative Negative - 4(70) +++ mg/dL [facility] Blood, UA Negative Negative - 50 Grey/mcL [facility] Clarity, UA Clear [facility] Color, UA Yellow [facility] Glucose, UA Negative Negative - 1999(110) ++++ mg/dL [facility] Interpretation and review of laboratory results Abnormal [facility] Ketones, UA Positive Negative - 160(16) ++++ mg/dL [facility] Leukocytes, UA Negative Negative - 500+++ Juan Alberto/mcL [facility] Nitrite, UA Negative Negative - Positive [facility] pH, UA 6 5 - 9 [facility] Protein, UA Negative Negative - 1999(20) ++++ mg/dL [facility] Spec Grav, UA 1.03 1 - 1.03 [facility] Urobilinogen, UA 0.2 0.2 - 12 mg/dL [facility] Urinalysis macro (dipstick) panel (U)on 06-27-2024 Bilirubin, UA Negative Negative - 4(70) +++ mg/dL [facility] Blood, UA Negative Negative - 50 Grey/mcL [facility] Clarity, UA Clear [facility] Color, UA Yellow [facility] Glucose, UA Negative Negative - 1999(110) ++++ mg/dL [facility] Interpretation and review of laboratory results Abnormal [facility] Ketones, UA Positive Negative - 160(16) ++++ mg/dL [facility] Comment on above: 15 Leukocytes, UA Negative Negative - 500+++ Juan Alberto/mcL [facility] Nitrite, UA Negative Negative - Positive [facility] pH, UA 6.5 5 - 9 [facility] Protein, UA Trace Negative - 1999(20) ++++ mg/dL [facility] Spec Grav, UA 1.02 1 - 1.03 [facility] Urobilinogen, UA 2.0 0.2 - 12 mg/dL [facility] Urinalysis macro (dipstick) panel (U)on 06-06-2024 Bilirubin, UA Negative Negative - 4(70) +++ mg/dL [facility] Blood, UA Negative Negative - 50 Grey/mcL [facility] Clarity, UA Clear [facility] Color, UA Yellow [facility] Glucose, UA Negative Negative - 1999(110) ++++ mg/dL [facility] Interpretation and review of laboratory results Abnormal [facility] Ketones, UA Negative Negative - 160(16) ++++ mg/dL [facility] Leukocytes, UA Trace Negative - 500+++ Juan Alberto/mcL [facility] Nitrite, UA Negative Negative - Positive [facility] pH, UA 7 5 - 9 [facility] Protein, UA Negative Negative - 1999(20) ++++ mg/dL [facility] Spec Grav, UA 1.015 1 - 1.03 [facility] Urobilinogen, UA 0.2 0.2 - 12 mg/dL [facility] Urinalysis macro (dipstick) panel (U)on 05-21-2024 Bilirubin, UA Negative Negative - 4(70) +++ mg/dL [facility] Blood, UA Negative Negative - 50 Grey/mcL [facility] Clarity, UA Clear [facility] Color, UA Yellow [facility] Glucose, UA Negative Negative - 1999(110) ++++ mg/dL [facility] Interpretation and review of laboratory results Normal [facility] Ketones, UA Negative Negative - 160(16) ++++ mg/dL [facility] Leukocytes, UA Negative Negative - 500+++ Juan Alberto/mcL [facility] Nitrite, UA Negative Negative - Positive [facility] pH, UA 6 5 - 9 [facility] Protein, UA Negative Negative - 1999(20) ++++ mg/dL [facility] Spec Grav, UA 1.025 1 - 1.03 [facility] Urobilinogen, UA 0.2 0.2 - 12 mg/dL [facility] Urinalysis macro (dipstick) panel (U)on 05-07-2024 Bilirubin, UA Negative Negative - 4(70) +++ mg/dL [facility] Blood, UA Negative Negative - 50 Grey/mcL [facility] Clarity, UA Clear [facility] Color, UA Yellow [facility] Glucose, UA Negative Negative - 1999(110) ++++ mg/dL [facility] Interpretation and review of laboratory results Normal [facility] Ketones, UA Negative Negative - 160(16) ++++ mg/dL [facility] Leukocytes, UA Negative Negative - 500+++ Juan Alberto/mcL [facility] Nitrite, UA Negative Negative - Positive [facility] pH, UA 5 5 - 9 [facility] Protein, UA Negative Negative - 1999(20) ++++ mg/dL [facility] Spec Grav, UA 1.02 1 - 1.03 [facility] Urobilinogen, UA 0.2 0.2 - 12 mg/dL [facility] GLUCOSE TOLERANCE 3 HOURon 1 07-05-2023 GLUCOSE TOLERANCE 3 HOUR High mg/dL [facility] Comment on above: GLU FAST 86 (<95) Co l: 05/05/24 0808 GLU 1HR 181H (<180) Col: 05/05/24 0912 GLU 2HR 135 (<155) Col: 05/05/24 1012 GLU 3HR 125 (<140) Col: 05/05/24 1112 Interpretation and review of laboratory results Abnormal [facility] ALL CBC WITH AUTO DIFFon BASOPHILS ABSOLUTE AUTO 0.1 [facility] Basophils/100 WBC (Bld) 0.5 % 0.2 - 2.0 % [facility] Eosinophils/100 WBC (Bld) 1.6 % 0.9 - 7.0 % [facility] Erythrocyte distribution width (RBC) [Ratio] 12.9 % 11.0 - 15.0 % [facility] Hematocrit (Bld) [Volume fraction] 37.9 % 36.0 - 48.0 % [facility] Hemoglobin (Bld) [Mass/Vol] 12.5 g/dL 12.0 - 16.0 g/dL [facility] IMMATURE GRANULOCYTES ABS AUTO 0.23 High [facility] Immature granulocytes/100 WBC (Bld) 1.8 % High 0.0 - 0.5 % [facility] Interpretation and review of laboratory results Abnormal [facility] LYMPHOCYTES ABSOLUTE AUTO 2.1 [facility] Lymphocytes/100 WBC (Bld) 17 % Low 20.5 - 60.0 % [facility] MCH (RBC) [Entitic mass] 31.5 pg 26.7 - 34.0 pg [facility] MCHC (RBC) [Mass/Vol] 33 g/dL 29.9 - 35.2 g/dL [facility] MCV (RBC) [Entitic vol] 95.5 fL 81.0 - 99.0 fL [facility] MONOCYTES ABSOLUTE AUTO 0.9 High [facility] Monocytes/100 WBC (Bld) 6.8 % 1.7 - 12.0 % [facility] NEUTROPHILS ABSOLUTE AUTO 9.1 High [facility] Neutrophils/100 WBC (Bld) 72.3 % 43.0 - 75.0 % [facility] Platelet mean volume (Bld) [Entitic vol] 9.5 fL 9.5 - 13.5 fL [facility] EO # 0.2 [facility] PLT 244 [facility] RBC 3.97 Low [facility] WBC 12.6 High [facility] Urinalysis macro (dipstick) panel (U)on 04-03-2024 Bilirubin, UA Negative Negative - 4(70) +++ mg/dL [facility] Blood, UA Negative Negative - 50 Grey/mcL [facility] Clarity, UA Clear [facility] Color, UA Yellow [facility] Glucose, UA Negative Negative - 1999(110) ++++ mg/dL [facility] Interpretation and review of laboratory results Normal [facility] Ketones, UA Negative Negative - 160(16) ++++ mg/dL [facility] Leukocytes, UA Negative Negative - 500+++ Juan Alberto/mcL [facility] Nitrite, UA Negative Negative - Positive [facility] pH, UA 6.5 5 - 9 [facility] Protein, UA Negative Negative - 1999(20) ++++ mg/dL [facility] Spec Grav, UA 1.02 1 - 1.03 [facility] Urobilinogen, UA 0.2 0.2 - 12 mg/dL [facility] AFP, SERUM, OPEN SPINA BIFID Aon 03-31-2024 AFP MOM 1.42 . [facility] AFP VALUE 88.7 ng/mL . [facility] COMMENT: Comment . [facility] Comment on above: Radha Viveros , Ph.D., [facility] Director References: Available Upon Request. Multiples Of Median Cutoffs For AFP Elevations Ricardo 2.5 Black 2.8 IDD 2.0 Twins 4.5 Abbreviation Definitions IDD - Insulin Dep Diabetes OSBR - Open Spina Bifida Risk For further inquiries contact [employer] at [phone]. This test was developed and its performance characteristics determined by [employer]. It has not been cleared or approved by the Food and Drug Administration. Performed at: [facility] [employer] [address] [place], [place] [id number] Yoghurt Maker: Priya Jung Formerly [facility], Phone: [phone] GEST. AGE ON COLLECTION DATE 20.4 . weeks [facility] GESTAT. AGE BASED ON As provided . [facility] Comment on above: Recalculations are n ot recommended when gestational dating by LMP and ultrasound are within 10 days. INSULIN DEP DIABETES No . [facility] INTERPRETATION Comment . [facility] Comment on above: Interpretation: Scre en [...] Customer Services to discuss available options. The [employer] recommends amniocentesis be offered to women age 35 and older. [age] [facility] MULTIPLE GESTATION No . [facility] OSBR RISK 1 IN 3404 . [facility] RACE . [facility] RESULTS Report . [facility] TEST RESULTS: Negative . [facility] 137 . [facility] [phone] 1 17 N 1 Y 137 N N N N N White/ [facility] IGP,APTIMA HPV,AGE GDLNon AGE GDLN ACOG TESTING Note . [facility] Comment on above: TESTS RESULT FLAG UN ITS REF RANGE LAB Clinician Provided Cytology Information Source.............[employer] Other.............. No. of containers..01 ThinPrep Vial Age Algo ACOG Martha... FLAG LEGEND: L-Low Normal,H-High Normal,LL-Alert Low,HH-Alert High <-Panic Low,>-Panic High,A-Abnormal,AA-Critical Abnormal Performed at: 01 =[address] [address] Deysi Tidwell MD, HPV APTIMA Negative Negative [facility] Comment on above: This nucleic acid am plification test detects fourteen high- risk HPV types (16,18,31,33,35,39,45,51,52,56,58,59,66,68) without differentiation. Performed at: =[address] [id number] Yoghurt Maker: Deysi Tidwell MD, Phone: [phone] Performed at: [address] [id number] Yoghurt Maker: Deysi Tidwell MD, Phone: [phone] IGP, APTIMA HPV, RFX 16/18,45 Note . [facility] Comment on above: TESTS RESULT FLAG UN ITS REF RANGE LAB DIAGNOSIS: 02 NEGATIVE FOR INTRAEPITHELIAL LESION OR MALIGNANCY. Specimen adequacy: 02 Satisfactory for evaluation. Endocervical and/or squamous metaplastic cells (endocervical component) are present. Performed by: 02 Alina Muniz, Stylist Assistant (ASCP) . 02 Note: Note 02 The [...] Low,>-Panic High,A-Abnormal,AA-Critical Abnormal Performed at: 02 [facility] [address] [facility] [place] [address] Deysi Tidwell MD, SPATULA-ALONE [employer] URETHRITIS/DISCHARGE PLUS VA GINITIS (HTRX)on 03-07-2024 ATOPOBIUM VAGINAE 29.123 Abnormal [facility] ATOPOBIUM VAGINAE Detected Abnormal [facility] BVAB 2,3 (BACTERIAL VAGINOSIS ASSOCIATED BACTERIA 2, 3); MOBILUNCUS SPP 0.000 [facility] BVAB 2,3 (BACTERIAL VAGINOSIS ASSOCIATED BACTERIA 2, 3); MOBILUNCUS SPP Not detected [facility] TAMIR ALBICANS, PARAPSILOSIS, TROPICALIS 0.000 [facility] TAMIR ALBICANS, PARAPSILOSIS, TROPICALIS Not detected [facility] TAMIR GLABRATA 0.000 [facility] TAMIR GLABRATA Not detected [facility] TAMIR KRUSEI 0.000 [facility] TAMIR KRUSEI Not detected [facility] CHLAMYDIA TRACHOMATIS 0.000 [facility] CHLAMYDIA TRACHOMATIS Not detected [facility] GARDNERELLA VAGINALIS 0.000 [facility] GARDNERELLA VAGINALIS Not detected [facility] Interpretation and review of laboratory results Abnormal [facility] MEGASPHAERA (TYPES 1, 2) 0.000 [facility] MEGASPHAERA (TYPES 1, 2) Not detected [facility] MYCOPLASMA GENITALIUM 0.000 [facility] MYCOPLASMA GENITALIUM Not detected [facility] NEISSERIA GONORRHOEAE 0.000 [facility] NEISSERIA GONORRHOEAE Not detected [facility] TRICHOMONAS VAGINALIS 0.000 [facility] TRICHOMONAS VAGINALIS Not detected [facility] Cytology Cervical or vaginal smear or scraping studyon 03-05-2024 [facility] Urinalysis macro (dipstick) panel (U)on 03-05-2024 Bilirubin, UA Negative Negative - 4(70) +++ mg/dL [facility] Blood, UA Negative Negative - 50 Grey/mcL [facility] Clarity, UA Clear [facility] Color, UA Yellow [facility] Glucose, UA Negative Negative - 1999(110) ++++ mg/dL [facility] Interpretation and review of laboratory results Normal [facility] Ketones, UA Negative Negative - 160(16) ++++ mg/dL [facility] Leukocytes, UA Negative Negative - 500+++ Juan Alberto/mcL [facility] Nitrite, UA Negative Negative - Positive [facility] pH, UA 6.5 5 - 9 [facility] Protein, UA Negative Negative - 1999(20) ++++ mg/dL [facility] Spec Grav, UA 1.020 1 - 1.03 [facility] Urobilinogen, UA 1.0 0.2 - 12 mg/dL [facility] Urinalysis macro (dipstick) panel (U)on 02-06-2024 Bilirubin, UA Negative Negative - 4(70) +++ mg/dL [facility] Blood, UA Negative Negative - 50 Grey/mcL [facility] Clarity, UA Clear [facility] Color, UA Yellow [facility] Glucose, UA Negative Negative - 1999(110) ++++ mg/dL [facility] Interpretation and review of laboratory results Normal [facility] Ketones, UA Negative Negative - 160(16) ++++ mg/dL [facility] Leukocytes, UA Negative Negative - 500+++ Juan Alberto/mcL [facility] Nitrite, UA Negative Negative - Positive [facility] pH, UA 7.0 5 - 9 [facility] Protein, UA Negative Negative - 2000(20) ++++ mg/dL [facility] Spec Grav, UA 1.015 1 - 1.03 [facility] Urobilinogen, UA 0.2 0.2 - 12 mg/dL [facility] CBC without diffon Hematocrit (Bld) [Volume fraction] 40.3 % [facility] Hemoglobin (Bld) [Mass/Vol] 13.3 g/dL [facility] Platelets (Bld) [#/Vol] 329 10*3/uL [facility] Rbc Mcv (Fl) By Automated Count 93.3 [facility] Chlamydia/GC by PCR Mariaa Sw abon 01-27-2024 Chlamydia Dna(Pcr) Not detected [facility] Gonorrhoeae Dna(Pcr) Not detected [facility] HIV 1&2 AB/AG Screen (P24 AG )on 01-27-2024 HIV 1&2 AB/AG Non-Reactive [facility] Hepatitis B surface antigeno n 01-27-2024 Hepatitis B Surface Antigen Negative [facility] Hepatitis C(HCV) Ab w/ Refle x to PCRon 01-27-2024 HCV Ab Ql (S) non reacitve [facility] No Panel Informationon 01-26 [facility] Rubella IGG immune statuson 01-27-2024 Rubella immune IgG 9.62 [facility] Syphilis Total(Unknown Syphi lis Status)on 01-27-2024 Syphilis Non-Reactive [facility] Type and screenon 01-27-2024 Abo/Rh(D) Positive [facility] LIPID PROFILEon 03-29-2022 CHOL-HDL RATIO NORM SEE BELOW Normal [facility] Comment on above: Result Comment: 3.3 - 4.4 LOW RISK 4.4 - 7.1 AVERAGE RISK 7.1 - 11.0 MODERATE RISK >11.0 HIGH RISK Performed By: #### L IPID #### [facility] [address] [address] [address] Parth Lucero Cholesterol [Mass/Vol] 197 mg/dL Normal <=200 [facility] Comment on above: Performed By: #### L IPID #### [facility] [address] [address] [address] Parth Lucero Cholesterol in HDL [Mass/Vol] 66 mg/dL Critically high 40-60 [facility] Comment on above: Performed By: #### L IPID #### [facility] [address] [address] [address] Parth Lucero Cholesterol in LDL [Mass/Vol] 120.0 mg/dL Normal [facility] Comment on above: Performed By: #### L IPID #### [facility] [address] [address] [address] Parth Lucero Cholesterol.total/Ch olesterol in HDL [Mass ratio] 3.0 {ratio} Normal [facility] Comment on above: Performed By: #### L IPID #### [facility] [address] [address] [address] Parth Lucero HDL NORMAL > or = 60 mg/dl - LO W CARDIOVASCULAR RISK <40 mg/dl - HIGH CARDIOVASCULAR RISK Normal [facility] Comment on above: Performed By: #### L IPID #### [facility] [address] [address] [address] Parth Lucero LDL CALC NORMAL SEE BELOW Normal [facility] Comment on above: Result Comment: <100 mg/dl OPTIMAL 100 - 129 mg/dl NEAR OR ABOVE OPTIMAL 130 - 159 mg/dl BORDERLINE HIGH 160 - 189 mg/dl HIGH >190 mg/dl VERY HIGH Performed By: #### L IPID #### [facility] [address] [place] [address] Dr. Parth Lucero Triglyceride [Mass/Vol] 55 mg/dL Normal <=150 [facility] Comment on above: Performed By: #### L IPID #### [facility] [address] [place] [address] Dr. Parth Lucero VLDL CALC 11.0 mg/dL Normal [facility] Comment on above: Performed By: #### L IPID #### [facility] [address] [place] [address] Dr. Parth Lucero CBC AUTO DIFFon 01-08-2022 BASO # 0.0 103/ul Normal 0.0-0.1 [facility] Comment on above: Performed By: #### [id number] #### [facility] [address] [place] [address] Dr. Parth Lucero Basophils/100 WBC (Bld) 0.3 % Normal 0.2-2.0 [facility] Comment on above: Performed By: #### [id number] #### [facility] [address] [place] [address] Dr. Parth Lucero EO # 0.1 103/ul Normal 0.0-0.7 [facility] Comment on above: Performed By: #### 4 [id number] #### [facility] [address] [place] [address] Dr. Parth Lucero Eosinophils/100 WBC (Bld) 0.4 % Critically low 0.9-7.0 [facility] Comment on above: Performed By: #### 4 [id number] #### [facility] [address] [place] [address] Dr. Parth Lucero Erythrocyte distribution width (RBC) [Ratio] 13.4 % Normal 11.0-15.0 [facility] Comment on above: Performed By: #### 4 [id number] #### [facility] [address] [place] [address] Dr. aPrth Lucero Hematocrit (Bld) [Volume fraction] 36.0 % Normal 36.0-48.0 [facility] Comment on above: Performed By: #### 4 [id number] #### [facility] [address] [place] [address] Dr. Parth Lucero Hemoglobin (Bld) [Mass/Vol] 12.1 g/dL Normal 12.0-16.0 [facility] Comment on above: Performed By: #### 4 [id number] #### [facility] [address] [place] [address] Dr. Parth Lucero IG # 0.10 10e3/ul Critically high 0.00-0.03 [facility] Comment on above: Performed By: #### 4 [id number] #### [facility] [address] [place] [address] Dr. Parth Lucero IG % 0.7 % Critically high 0.0-0.5 [facility] Comment on above: Performed By: #### 4 [id number] #### [facility] [address] [place] [address] Dr. Parth Lucero LYMPH # 2.1 103/ul Normal 1.2-3.8 [facility] Comment on above: Performed By: #### 4 [id number] #### [facility] [address] [place] [address] Dr. Parth Lucero Lymphocytes/100 WBC (Bld) 14.0 % Critically low 20.5-60.0 [facility] Comment on above: Performed By: #### 4 [id number] #### [facility] [address] [place] [address] Dr. Parth Lucero MANUAL DIFF REQ NO Normal [facility] Comment on above: Performed By: #### 4 [id number] #### [facility] [address] [place] [address] Dr. Parth Lucero MCH (RBC) [Entitic mass] 31.0 pg Normal 26.7-34.0 [facility] Comment on above: Performed By: #### 4 [id number] #### [facility] [address] [place] [address] Dr. Parth Lucero MCHC (RBC) [Mass/Vol] 33.6 g/dL Normal 29.9-35.2 [facility] Comment on above: Performed By: #### 4 [id number] #### [facility] [address] [place] [address] Dr. Parth Lucero MCV (RBC) [Entitic vol] 92.3 fL Normal 81.0-99.0 [facility] Comment on above: Performed By: #### 4 [id number] #### [facility] [address] [place] [address] Dr. Parth Lucero MONO # 1.2 103/ul Critically high 0.3-0.8 [facility] Comment on above: Performed By: #### 4 [id number] #### [facility] [address] [place] [address] Dr. Parth Lucero Monocytes/100 WBC (Bld) 7.7 % Normal 1.7-12.0 [facility] Comment on above: Performed By: #### 4 [id number] #### [facility] [address] [place] [address] Dr. Parth Lucero NEUT # 11.7 103/ul Crit[facility] 1[facility]4-6.[facility] Comment on above: Performed By: #### [id number] #### [facility] [address] [place] [address] Dr. Parth Lucero Neutrophils/100 WBC (Bld) 76.9 % Critically high 43.0-75.0 [facility] Comment on above: Performed By: #### 4 [id number] #### [facility] [address] [place] [address] Dr. Parth Lucero Platelet mean volume (Bld) [Entitic vol] 10.0 fL Normal 9.5-13.5 [facility] Comment on above: Performed By: #### 4 [id number] #### [facility] [address] [place] [address] Dr. Parth Lucero PLT 231 103/ul Normal 150-450 [facility] Comment on above: Performed By: #### 4 [id number] #### [facility] [address] [place] [address] Dr. Parth Lucero RBC 3.90 106/ul Critically low 4.20-5.40 [facility] Comment on above: Performed By: #### [id number] #### [facility] [address] [address] [address] Parth Lucero WBC 15.2 103/ul Critically high 4.0-11.0 [facility] Comment on above: Performed By: #### [id number] #### [facility] [address] [place] [address] Dr. Parth Lucero CBC AUTO DIFFon 01-07-2022 BASO # 0.0 103/ul Normal 0.0-0.1 [facility] Comment on above: Performed By: #### C BC #### [facility] [address] [place] [address] Dr. Parth Lucero Basophils/100 WBC (Bld) 0.4 % Normal 0.2-2.0 [facility] Comment on above: Performed By: #### C BC #### [facility] [address] [place] [address] Dr. Parth Lucero EO # 0.1 103/ul Normal 0.0-0.7 [facility] Comment on above: Performed By: #### C BC #### [facility] [address] [place] [address] Dr. Parth Lucero Eosinophils/100 WBC (Bld) 1.1 % Normal 0.9-7.0 [facility] Comment on above: Performed By: #### C BC #### [facility] [address] [place] [address] Dr. Parth Lucero Erythrocyte distribution width (RBC) [Ratio] 13.3 % Normal 11.0-15.0 [facility] Comment on above: Performed By: #### C BC #### [facility] [address] [place] [address] Dr. Parth Lucero Hematocrit (Bld) [Volume fraction] 39.2 % Normal 36.0-48.0 [facility] Comment on above: Performed By: #### C BC #### [facility] [address] [address] [address] Parth Lucero Hemoglobin (Bld) [Mass/Vol] 13.3 g/dL Normal 12.0-16.0 [facility] Comment on above: Performed By: #### C BC #### [facility] [address] [place] [address] Dr. Parth Lucero IG # 0.10 10e3/ul Critically high 0.00-0.03 [facility] Comment on above: Performed By: #### C BC #### [facility] [address] [place] [address] Dr. Parth Lucero IG % 1.0 % Critically high 0.0-0.5 [facility] Comment on above: Performed By: #### C BC #### [facility] [address] [place] [address] Dr. Parth Lucero LYMPH # 1.8 103/ul Normal 1.2-3.8 [facility] Comment on above: Performed By: #### C BC #### [facility] [address] [place] [address] Dr. Parth Luceor Lymphocytes/100 WBC (Bld) 18.0 % Critically low 20.5-60.0 [facility] Comment on above: Performed By: #### C BC #### [facility] [address] [place] [address] Dr. Parth Lucero MANUAL DIFF REQ NO Normal [facility] Comment on above: Performed By: #### C BC #### [facility] [address] [place] [address] Dr. Parth Lucero MCH (RBC) [Entitic mass] 31.1 pg Normal 26.7-34.0 [facility] Comment on above: Performed By: #### C BC #### [facility] [address] [place] [address] Dr. Prath Lucero MCHC (RBC) [Mass/Vol] 33.9 g/dL Normal 29.9-35.2 [facility] Comment on above: Performed By: #### C BC #### [facility] [address] [place] [address] Dr. Parth Lucero MCV (RBC) [Entitic vol] 91.8 fL Normal 81.0-99.0 [facility] Comment on above: Performed By: #### C BC #### [facility] [address] [place] [address] Dr. Parth Lucero MONO # 1.1 103/ul Critically high 0.3-0.8 [facility] Comment on above: Performed By: #### C BC #### [facility] [address] [place] [address] Dr. Parth Lucero Monocytes/100 WBC (Bld) 11.3 % Normal 1.7-12.0 [facility] Comment on above: Performed By: #### C BC #### [facility] [address] [place] [address] Dr. Parth Lucero NEUT # 6.9 103/ul Critically high 1.4-6.5 [facility] Comment on above: Performed By: #### C BC #### [facility] [address] [place] [address] Dr. Parth Lucero Neutrophils/100 WBC (Bld) 68.2 % Normal 43.0-75.0 [facility] Comment on above: Performed By: #### C BC #### [facility] [address] [place] [address] Dr. Parth Lucero Platelet mean volume (Bld) [Entitic vol] 10.6 fL Normal 9.5-13.5 [facility] Comment on above: Performed By: #### C BC #### [facility] [address] [place] [address] Dr. Parth Lucero PLT 258 103/ul Normal 150-450 [facility] Comment on above: Performed By: #### C BC #### [facility] [address] [place] [address] Dr. Parth Lucero RBC 4.27 106/ul Normal 4.20-5.40 [facility] Comment on above: Performed By: #### C BC #### [facility] [address] [place] [address] Dr. Parth Lucero WBC 10.1 103/ul Normal 4.0-11.0 [facility] Comment on above: Performed By: #### C BC #### [facility] [address] [place] [address] Dr. Parth Lucero Covid-19 PCR ([facility])on 12-19 SARS-CoV-2 (COVID-19) RNA RIGOBERTO+probe Ql (Unsp spec) Not detected Normal NOT DETECTED [facility] Comment on above: Result Comment: [...] for this test is supported by the Trial Lawyer of Health and Human Service's declaration that [...] longer be used). Performed By: #### [id number] #### [facility] [address] [place] [address] Dr. Parth Lucero DRUG SCREEN RAPID (URINE)on 01-07-2022 AMP Negative Normal NEGATIVE [facility] Comment on above: Performed By: #### L IPID #### [facility] [address] [place] [address] Dr. Parth Lucero BAR Negative Normal NEGATIVE [facility] Comment on above: Performed By: #### L IPID #### [facility] [address] [place] [address] Dr. Parth Lucero BUP Negative Normal NEGATIVE [facility] Comment on above: Performed By: #### L IPID #### [facility] [address] [place] [address] Dr. Parth Lucero BZO Negative Normal NEGATIVE [facility] Comment on above: Performed By: #### L IPID #### [facility] [address] [address] [address] Parth Lucero AMINTA Negative Normal NEGATIVE [facility] Comment on above: Performed By: #### L IPID #### [facility] [address] [address] [address] Parth Lucero CUT-OFFS SEE BELOW Normal [facility] Comment on above: Result [...] ng/mL Performed By: #### L IPID #### [facility] [address] [place] [address] Dr. Parth Lucero DRUG CUT HEADER DRUG CLASS TEST SYSTEM CUT-OFF CONCENTRATIONS ARE FOLLOWS: Normal [facility] Comment on above: Performed By: #### L IPID #### [facility] [address] [place] [address] Dr. Parth Lucero mAMP Negative Normal NEGATIVE [facility] Comment on above: Performed By: #### L IPID #### [facility] [address] [address] [address] Parth Lucero MTD Negative Normal NEGATIVE [facility] Comment on above: Performed By: #### L IPID #### [facility] [address] [address] [address] Parth Lucero OPI Negative Normal NEGATIVE [facility] Comment on above: Performed By: #### L IPID #### [facility] [address] [place] [address] Dr. Parth Lucero OXY Negative Normal NEGATIVE [facility] Comment on above: Performed By: #### L IPID #### [facility] [address] [address] [address] Parth Lucero PCP Negative Normal NEGATIVE [facility] Comment on above: Performed By: #### L IPID #### [facility] [address] [place] [address] Dr. Parth Lucero PPX Negative Normal NEGATIVE [facility] Comment on above: Performed By: #### L IPID #### [facility] [address] [place] [address] Dr. Parth Lucero TCA Negative Normal NEGATIVE [facility] Comment on above: Performed By: #### L IPID #### [facility] [address] [place] [address] Dr. Parth Lucero THC Negative Normal NEGATIVE [facility] Comment on above: Performed By: #### L IPID #### [facility] [address] [place] [address] Dr. Parth Lucero TYPE AND SCREENon 01-07-2022 TYPE AND SCREEN Negative Normal [facility] Comment on above: Performed By: #### T NS #### [facility] [address] [place] [address] Dr. Parth Lucero GROUP B STREP CULTUREon 11-19 S. agalactiae Ag Ql (Unsp spec) Culture Observations: NEGATIVE FOR GROUP B STREPTOCOCCUS. Normal [facility] Comment on above: Performed By: #### [id number] #### [facility] [address] [place] [address] Dr. Parth Lucero GTT 3 HR PREGon 2021 Glucose [Mass/Vol] 93 mg/dL Normal 74-106 [facility] Comment on above: Performed By: #### G TT3P #### [facility] [address] [place] [address] Dr. Parth Lucero Glucose [Mass/Vol] 173 mg/dL Normal [facility] Comment on above: Performed By: #### G TT3P #### [facility] [address] [place] [address] Dr. Parth Lucero Glucose [Mass/Vol] 149 mg/dL Normal [facility] Comment on above: Performed By: #### G TT3P #### [facility] [address] [place] [address] Dr. Parth Lucero Glucose [Mass/Vol] 128 mg/dL Normal [facility] Comment on above: Performed By: #### G TT3P #### [facility] [address] [place] [address] Dr. Parth Lucero GLUCOSE - 1HRon 10-09-2021 Glucose [Mass/Vol] 150 mg/dL Critically high 74-106 T [facility] Comment on above: Performed By: #### G LU1HR #### [facility] [address] [place] [address] Dr. Parth Lucero HEMOGRAM AND PLATELon 2021 Hematocrit (Bld) [Volume fraction] 37.6 % Normal 36.0-48.0 [facility] Comment on above: Performed By: #### H H #### [facility] [address] [place] [address] Dr. Parth Lucero Hemoglobin (Bld) [Mass/Vol] 12.3 g/dL Normal 12.0-16.0 [facility] Comment on above: Performed By: #### H H #### [facility] [address] [place] [address] Dr. Parth Lucero MCH (RBC) [Entitic mass] 31.2 pg Normal 26.7-34.0 [facility] Comment on above: Performed By: #### H H #### [facility] [address] [place] [address] Dr. Parth Lucero MCHC (RBC) [Mass/Vol] 32.7 g/dL Normal 29.9-35.2 [facility] Comment on above: Performed By: #### H H #### [facility] [address] [place] [address] Dr. Parth Lucero MCV (RBC) [Entitic vol] 95.4 fL Normal 81.0-99.0 [facility] Comment on above: Performed By: #### H H #### [facility] [address] [address] [address] Parth Lucero PLT 240 103/ul Normal 150-450 [facility] Comment on above: Performed By: #### H H #### [facility] [address] [address] [address] Parth Lucero RBC 3.94 106/ul Critically low 4.20-5.40 [facility] Comment on above: Performed By: #### H H #### [facility] [address] [address] [address] Parth Lucero WBC 9.7 103/ul Normal 4.0-11.0 [facility] Comment on above: Performed By: #### H H #### [facility] [address] [place] [address] Dr. Parth Lucero PAP ACOG PANEL 2: 21 to 29on 09-02-2021 . . Normal [facility] Comment on above: Performed By: #### [id number] #### [facility] [address] [place] [address] Dr. Parth Lucero Age Gdln ACOG Testing 21-29 [facility] Comment on above: Performed By: #### [id number] #### [facility] [address] [place] [address] Dr. Parth Lucero DIAGNOSIS: Comment Normal [facility] Comment on above: Result Comment: NEGA TIVE FOR INTRAEPITHELIAL LESION OR MALIGNANCY. Performed By: #### [id number] #### [facility] [address] [place] [address] Dr. Parth Lucero Methodology: Comment Normal [facility] Comment on above: Result Comment: This liquid based ThinPrep(R) pap test was screened with the use of an image guided system. Performed By: #### [id number] #### [facility] [address] [place] [address] Dr. Parth Lucero Note: Comment Normal [facility] Comment on above: Result Comment: The Pap smear is a screening test designed to aid in the detection of premalignant and malignant conditions of the uterine cervix. It is not a diagnostic procedure and should not be used as the sole means of detecting cervical cancer. Both false-positive and false-negative reports do occur. . Performed By: #### [id number] #### [facility] [address] [place] [address] Dr. Parth Lucero Performed by: Comment Normal [facility] Comment on above: Result Comment: Vivian Paris, Stylist Assistant (ASCP) Performed By: #### [id number] #### [facility] [address] [place] [address] Dr. Parth Lucero Reflex Criteria: Comment [facility] Comment on above: Result Comment: The HPV DNA reflex criteria were not met with this specimen result therefore, no HPV testing was performed. . Performed By: #### [id number] #### [facility] [address] [place] [address] Dr. Parth Lucero Specimen adequacy: Comment Normal [facility] Comment on above: Result Comment: Sati sfactory for evaluation. No endocervical component is identified. Performed By: #### [id number] #### [facility] [address] [place] [address] Dr. Parth Lucero US PREG ANATOMY SINGLEon [...] by ultrasound, 56% by expected EDC; FL/AC: 0.159097 FL/BPD: 0.222355 HC/AC: 1.396485 GESTATIONAL AGE: Age by EDC: 21 weeks 0 days ARMANI by EDC: 01/12/2022 Age by current US: 20 weeks 1 day ARMANI by current US: 01/11/2022 IMPRESSION: Normal anatomy scan *Reference: [employer] Practice Guideline for the performance of Obstetric Ultrasound Examinations, March 20, 2007. Electronically authenticated by: ALONSO SANDERS Date: 2021-09-01 16:20 Normal [facility] CHLAMYDIA/GONOCOCCUS RIGOBERTO ( AB/URINE/PAPon 08-29-2021 Chlamydia trachomatis, RIGOBERTO Negative Normal Negative [facility] Comment on above: Performed By: #### L IPID #### [facility] [address] [place] [address] Dr. Parth Lucero Neisseria gonorrhoeae, RIGOBERTO Negative Normal Negative [facility] Comment on above: Performed By: #### L IPID #### [facility] [address] [address] [address] Parth Lucero AFP MATERNAL FOR SPINA BIFID Aon 08-18-2021 AFP MoM 1.13 Normal [facility] Comment on above: Performed By: #### [id number] #### [facility] [address] [place] [address] Dr. Parth Lucero AFP Value 52.2 ng/mL Normal [facility] Comment on above: Performed By: #### 4 [id number] #### [facility] [address] [address] [address] Parth Lucero AFP, Serum for Spina Bifida Report Normal [facility] Comment on above: Performed By: #### [id number] #### [facility] [address] [address] [address] Parth Lucero Comment Comment Normal [facility] Comment on above: Result Comment: Ruth Viveros, Ph.D., [facility] Director . References: Available Upon Request. . Multiples Of Median Cutoffs For AFP Elevations Ricardo 2.5 Black 2.8 IDD 2.0 Twins 4.5 Abbreviation Definitions IDD - Insulin Dep Diabetes OSBR - Open Spina Bifida Risk . For further inquiries contact [employer] at [phone]. Performed By: #### [id number] #### [facility] [address] [address] [address] Parth Modi Age Collection Date 18.0 weeks Normal [facility] Comment on above: Performed By: #### [id number] #### [facility] [address] [address] [address] Parth Lucero Gestat, Age Based on LMP Normal [facility] Comment on above: Result Comment: Reca lculations are not recommended when gestational dating by LMP and ultrasound are within 10 days. Performed By: #### [id number] #### [facility] [address] [place] [address] Dr. Parth Lucero Insulin Dep Diabetes No Normal [facility] Comment on above: Performed By: #### [id number] #### [facility] [address] [place] [address] Dr. Parth Lucero Interpretation Comment Normal [facility] Comment on above: Result Comment: [...] Customer Services to discuss available options. The [employer] recommends amniocentesis be offered to women age 35 and older. Performed By: #### 4 [id number] #### [facility] [address] [place] [address] Dr. Parth Lucero [age] Normal [facility] Comment on above: Performed By: #### 4 [id number] #### [facility] [address] [address] [address] Parth Lucero Multiple Gestation No Normal [facility] Comment on above: Performed By: #### 4 [id number] #### [facility] [address] [address] [address] Parth Lucero OSBR Risk 1 [place] 8106 Normal [facility] Comment on above: Performed By: #### 4 [id number] #### [facility] [address] [address] [address] Parth Lucero PDF . Normal [facility] Comment on above: Result Comment: This test was developed and its performance characteristics determined by [employer]. It has not been cleared or approved by the Food and Drug Administration. Performed By: #### 4 [id number] #### [facility] [address] [place] [address] Dr. Parth Lucero Race Normal [facility] Comment on above: Performed By: #### 4 [id number] #### [facility] [address] [place] [address] Dr. Parth Lucero Test Results: Negative Normal [facility] Comment on above: Performed By: #### 4 [id number] #### [facility] [address] [place] [address] Dr. Parth Lucero HEP B SURFACE ANTIGEN SCREEN on 06-25-2021 HBsAg Screen Negative Normal Negative [facility] Comment on above: Performed By: #### H BSANS #### [facility] [address] [place] [address] Dr. Parth Lucero HEPATITIS C VIRUS AB W/ REFL EX QUANTon 06-25-2021 HCV AB <0.1 Normal 0.0-0.9 [facility] Comment on above: Performed By: #### [id number] #### [facility] [address] [place] [address] Dr. Parth Lucero Interpretation: Comment Normal [facility] Comment on above: Result Comment: Nega tive Not infected with HCV, unless recent infection is suspected or other evidence exists to indicate HCV infection. Performed By: #### [id number] #### [facility] [address] [place] [address] Dr. Parth Lucero HIV 1 AND 2 WITH REFLEXon HIV Screen 4th Generation wRfx Non-Reactive Normal Non Reactive [facility] Comment on above: Performed By: #### L IPID #### [facility] [address] [place] [address] Dr. Parth Lucero RPR QUANTon 06-25-2021 Rapid Plasma Reagin, Quant Non-Reactive Normal NonRea<1:1 [facility] Comment on above: Performed By: #### L IPID #### [facility] [address] [place] [address] Dr. Parth Lucero RUBELLA AB IGGon 06-25-2021 Rubella Antibodies, IgG 13.00 index Normal Immune >0.99 [facility] Comment on above: Result Comment: Non- immune <0.90 Equivocal 0.90 - 0.99 Immune >0.99 Performed By: #### [id number] #### [facility] [address] [place] [address] Dr. Parth Lucero CBC AUTO DIFFon 06-23-2021 BASO # 0.0 103/ul Normal 0.0-0.1 [facility] Comment on above: Performed By: #### L IPID #### [facility] [address] [place] [address] Dr. Parth Lucero Basophils/100 WBC (Bld) 0.3 % Normal 0.2-2.0 [facility] Comment on above: Performed By: #### L IPID #### [facility] [address] [place] [address] Dr. Parth Lucero EO # 0.1 103/ul Normal 0.0-0.7 [facility] Comment on above: Performed By: #### L IPID #### [facility] [address] [place] [address] Dr. Parth Lucero Eosinophils/100 WBC (Bld) 1.1 % Normal 0.9-7.0 [facility] Comment on above: Performed By: #### L IPID #### [facility] [address] [place] [address] Dr. Parth Lucero Erythrocyte distribution width (RBC) [Ratio] 12.7 % Normal 11.0-15.0 [facility] Comment on above: Performed By: #### L IPID #### [facility] [address] [place] [address] Dr. Parth Lucero Hematocrit (Bld) [Volume fraction] 38.2 % Normal 36.0-48.0 [facility] Comment on above: Performed By: #### L IPID #### [facility] [address] [place] [address] Dr. Parth Lucero Hemoglobin (Bld) [Mass/Vol] 13.0 g/dL Normal 12.0-16.0 [facility] Comment on above: Performed By: #### L IPID #### [facility] [address] [place] [address] Dr. Parth Lucero IG # 0.04 10e3/ul Critically high 0.00-0.03 [facility] Comment on above: Performed By: #### L IPID #### [facility] [address] [place] [address] Dr. Parth Lucero IG % 0.4 % Normal 0.0-0.5 [facility] Comment on above: Performed By: #### L IPID #### [facility] [address] [place] [address] Dr. Parth Lucero LYMPH # 2.3 103/ul Normal 1.2-3.8 [facility] [facility] Comment on above: Performed By: #### L IPID #### [facility] [address] [place] [address] Dr. Parth Lucero Lymphocytes/100 WBC (Bld) 23.8 % Normal 20.5-60.0 [facility] Comment on above: Performed By: #### L IPID #### [facility] [address] [place] [address] Dr. Parth Lucero MANUAL DIFF REQ NO Normal [facility] Comment on above: Performed By: #### L IPID #### [facility] [address] [place] [address] Dr. Parth Lucero MCH (RBC) [Entitic mass] 31.6 pg Normal 26.7-34.0 [facility] Comment on above: Performed By: #### L IPID #### [facility] [address] [address] [address] Parth Lucero MCHC (RBC) [Mass/Vol] 34.0 g/dL Normal 29.9-35.2 [facility] Comment on above: Performed By: #### L IPID #### [facility] [address] [address] [address] Parth Lucero MCV (RBC) [Entitic vol] 92.9 fL Normal 81.0-99.0 [facility] Comment on above: Performed By: #### L IPID #### [facility] [address] [address] [address] Parth Lucero MONO # 0.8 103/ul Normal 0.3-0.8 [facility] Comment on above: Performed By: #### L IPID #### [facility] [address] [address] [address] Parth Lucero Monocytes/100 WBC (Bld) 7.6 % Normal 1.7-12.0 [facility] Comment on above: Performed By: #### L IPID #### [facility] [address] [place] [address] Dr. Parth Lucero NEUT # 6.6 103/ul Critically high 1.4-6.5 [facility] Comment on above: Performed By: #### L IPID #### [facility] [address] [address] [address] Parth Lucero Neutrophils/100 WBC (Bld) 66.8 % Normal 43.0-75.0 [facility] Comment on above: Performed By: #### L IPID #### [facility] [address] [address] [address] Parth Lucero Platelet mean volume (Bld) [Entitic vol] 9.4 fL Critically low 9.5-13.5 [facility] Comment on above: Performed By: #### L IPID #### [facility] [address] [place] [address] Dr. Parth Lucero PLT 320 103/ul Normal 150-450 [facility] Comment on above: Performed By: #### L IPID #### [facility] [address] [place] [address] Dr. Parth Lucero RBC 4.11 106/ul Critically low 4.20-5.40 [facility] Comment on above: Performed By: #### L IPID #### [facility] [address] [place] [address] Dr. Parth Lucero WBC 9.8 103/ul Normal 4.0-11.0 [facility] Comment on above: Performed By: #### L IPID #### [facility] [address] [place] [address] Dr. Parth Lucero CULTURE URINEon 06-23-2021 CULTURE URINE Culture Observations : MODERATE GROWTH OF MIXED GENITAL BERNARDINO. NO POTENTIAL PATHOGENS SEEN. Normal [facility] Comment on above: Performed By: #### U RCX #### [facility] [address] [place] [address] Dr. Parth Lucero GLYCOHEMOGLOBIN A1Con 2021 ADA RECOMMENDATION ADA THERAPEUTIC TARGET 6.0 - 7.0 ACTION SUGGESTED > 7.0 Normal [facility] Comment on above: Performed By: #### A 1C #### [facility] [address] [place] [address] Dr. Parth Lucero Glucose [Mass/Vol] 105 mg/dL Normal [facility] Comment on above: Performed By: #### A 1C #### [facility] [address] [place] [address] Dr. Parth Lucero HbA1c (Bld) [Mass fraction] 5.3 % Normal <=6.0 [facility] Comment on above: Performed By: #### A 1C #### [facility] [address] [place] [address] Dr. Parth Lucero TAYLA BOX TEST PT SEND OUTo n 06-23-2021 SENT TO REF LAB 06/23/2021 Normal [facility] Comment on above: Performed By: #### [id number] #### [facility] [address] [place] [address] Dr. Parth Lucero TYPE AND SCREENon 06-23-2021 TYPE AND SCREEN Negative Normal [facility] Comment on above: Performed By: #### [id number] #### [facility] [address] [place] [address] Dr. Parth Lucero US PREG TVon 06-15-2021 [...] by: ALONSO SANDERS Date: 2021-06-15 09:44 Normal [facility] Auth for Release of Medical Recordson 06-05-2021 Auth for Release of Medical Records [id number] Normal [facility] Vital Signs Date Time Vital Sign Value Performing Clinician Facility 07-18-2024 16:25-0500 Body mass index (BMI) [Ratio] 28.84 kg/m2 [employer] Work Phone: [facility] 07-18-2024 16:25-0500 Body weight 76.2 kg Jorge Luis Katrin DO Work Phone: [facility] 07-18-2024 16:25-0500 Diastolic blood pressure 76 mm[Hg] Jorge Luis Katrin [employer] Work Phone: [facility] 07-18-2024 16:25-0500 Systolic blood pressure 114 mm[Hg] Jorge Luis Katrin [employer] Work Phone: [facility] 07-11-2024 16:13-0500 Body mass index (BMI) [Ratio] 29.15 kg/m2 Bibiana Brookville PA Work Phone: [facility] 07-11-2024 16:13-0500 Body weight 77.02 kg Bibiana Quinton PA Work Phone: [facility] 07-11-2024 16:13-0500 Diastolic blood pressure 74 mm[Hg] Bibiana Quinton PA Work Phone: [facility] 07-11-2024 16:13-0500 Systolic blood pressure 112 mm[Hg] Bibiana Quinton PA Work Phone: [facility] 06-27-2024 16:21-0500 Body mass index (BMI) [Ratio] 27.98 kg/m2 Jorge Luis Katrin DO Work Phone: [facility] 06-27-2024 16:21-0500 Body weight 73.94 kg Jorge Ulis Katrin DO Work Phone: [facility] 06-27-2024 16:21-0500 Diastolic blood pressure 70 mm[Hg] Jorge Luis Katrin DO Work Phone: [facility] 06-27-2024 16:21-0500 Systolic blood pressure 112 mm[Hg] Jorge Luis Katrin DO Work Phone: [facility] 06-06-2024 16:04-0500 Body mass index (BMI) [Ratio] 27.46 kg/m2 Bibiana Quinton PA Work Phone: [facility] 06-06-2024 16:04-0500 Body weight 72.58 kg Bibiana Quinton PA Work Phone: [facility] 06-06-2024 16:04-0500 Diastolic blood pressure 66 mm[Hg] Bibiana Brookville PA Work Phone: [facility] 06-06-2024 16:04-0500 Systolic blood pressure 110 mm[Hg] Bibiana Quinton PA Work Phone: [facility] 05-21-2024 16:56-0500 Body mass index (BMI) [Ratio] 27.09 kg/m2 Jorge Luis Katrin DO Work Phone: [facility] 05-21-2024 16:56-0500 Body weight 71.58 kg Jorge Luis Katrin DO Work Phone: [facility] 05-21-2024 16:56-0500 Diastolic blood pressure 64 mm[Hg] Jorge Luis Katrin DO Work Phone: [facility] 05-21-2024 16:56-0500 Systolic blood pressure 106 mm[Hg] Jorge Luis Katrin DO Work Phone: [facility] 05-07-2024 16:39-0500 Body mass index (BMI) [Ratio] 26.09 kg/m2 Bibiana Brookville PA Work Phone: [facility] 05-07-2024 16:39-0500 Body weight 68.95 kg Bibiana Brookville PA Work Phone: [facility] 05-07-2024 16:39-0500 Diastolic blood pressure 68 mm[Hg] Bibiana Quinton PA Work Phone: [facility] 05-07-2024 16:39-0500 Systolic blood pressure 112 mm[Hg] Bibiana Brookville PA Work Phone: [facility] 04-16-2024 14:18-0400 Body height 160 cm Jeet Tavares MD Work Phone: [facility] 04-16-2024 14:18-0400 Body mass index (BMI) [Ratio] 26.39 kg/m2 Jeet Tavares MD Work Phone: [facility] 04-16-2024 14:18-0400 Body weight 67.59 kg Jeet Tavares MD Work Phone: [facility] 04-16-2024 14:18-0400 Diastolic blood pressure 78 mm[Hg] Jeet Tavares MD Work Phone: [facility] 04-16-2024 14:18-0400 Heart rate 102 /min Jeet Tavares MD Work Phone: [facility] 04-16-2024 14:18-0400 Systolic blood pressure 133 mm[Hg] eJet Tavares MD Work Phone: [facility] 04-03-2024 14:57-0400 Body mass index (BMI) [Ratio] 25.4 kg/m2 Jorge Luis Katrin DO Work Phone: [facility] 04-03-2024 14:57-0400 Body weight 67.13 kg Jorge Luis Katrin DO Work Phone: [facility] 04-03-2024 14:57-0400 Diastolic blood pressure 64 mm[Hg] Jorge Luis Katrin DO Work Phone: [facility] 04-03-2024 14:57-0400 Systolic blood pressure 100 mm[Hg] Jorge Luis Katrin DO Work Phone: [facility] 03-05-2024 16:05-0400 Body mass index (BMI) [Ratio] 23.54 kg/m2 Bibiana MONROY Work Phone: [facility] 03-05-2024 16:05-0400 Body weight 62.2 kg Bibiana MONROY Work Phone: [facility] 03-05-2024 16:05-0400 Diastolic blood pressure 74 mm[Hg] Bibiana MONROY Work Phone: [facility] 03-05-2024 16:05-0400 Systolic blood pressure 112 mm[Hg] Bibiana MONROY Work Phone: [facility] 02-06-2024 15:48-0400 Body mass index (BMI) [Ratio] 23.25 kg/m2 Jorge Luis Katrin DO Work Phone: [facility] 02-06-2024 15:48-0400 Body weight 61.43 kg Jorge Luis Katrin DO Work Phone: [facility] 02-06-2024 15:48-0400 Diastolic blood pressure 74 mm[Hg] Jorge Luis Katrin DO Work Phone: [facility] 02-06-2024 15:48-0400 Systolic blood pressure 112 mm[Hg] Jorge Luis Katrin DO Work Phone: [facility] 08-18-2021 18:08-0500 Body weight 63.[address] RODNEY CAPUTO [facility] Comment on above: Performed By: #### [id number] #### [facility] [address] [place] [address] Dr. Parth Lucero Encounters Encounter Date Encounter [...] Encounter Jorge Luis Katrin DO Work Phone: [facility] External Department Unsolicited Start: 07-16-2024 End: [...] End: 05-15-2024 ambulatory JORGE LUIS R KATRIN [facility] Start: 05-07-2024 End: 05-07-2024 flow sheet Bibiana MONROY Work Phone: [facility] Comment on above: 26 weeks gestation o f ; Second trimester ; Elevated glucose tolerance test Start: 05-07-2024 End: 05-07-2024 ambulatory BIBIANA ALCANTARA Not Available Start: 05-07-2024 End: 05-07-2024 Bamboo flowsheet Bibiana MONROY Work Phone: [facility] Start: 05-07-2024 End: 05-07-2024 Bamboo flowsheet Bibiana MONROY Work Phone: [facility] Start: 05-05-2024 End: 05-05-2024 Clinisync Result Encounter Jorge Luis Katrin DO Work Phone: [facility] External Department Unsolicited Start: 05-05-2024 End: 05-05-2024 Clinisync Result Encounter Jorge Luis Katrin DO Work Phone: [facility] External Department Unsolicited Start: 04-28-2024 End: 04-28-2024 Clinisync Result Encounter Jorge Luis Katrin DO Work Phone: [facility] External Department Unsolicited Start: 04-28-2024 End: 04-28-2024 Clinisync Result Encounter Jorge Luis Katrin DO Work Phone: [facility] External Department Unsolicited Start: 04-16-2024 End: 04-16-2024 Office outpatient new 45 minutes Jeet Tavares MD Work Phone: [facility] Comment on above: Echogenic focus of h eart of fetus affecting antepartum care of mother, single or unspecified fetus (Primary Dx); Low lying placenta, antepartum; Suspected condition not found; Family history of congenital heart defect; 23 weeks gestation of Start: 04-16-2024 End: 04-16-2024 ambulatory [facility] Start: 04-11-2024 End: 04-11-2024 Chart abstracting Jeet Tavares MD Work Phone: [facility] Start: 04-03-2024 End: 04-03-2024 flow sheet Jorge Luis Katrin DO Work Phone: [facility] Comment on above: 21 [...] Clinisync Result Encounter Bibiana MONROY Work Phone: [facility] External Department Unsolicited Start: 03-28-2024 End: 03-31-2024 Clinisync Result Encounter Bibiana MONROY Work Phone: [facility] External Department Unsolicited Start: 03-05-2024 End: 03-05-2024 Patient encounter procedure Bibiana MONROY Work Phone: [facility] Healthcare Work Phone: Start: 03-05-2024 End: 03-05-2024 Periodic preventive med est patient 18-39 yrs Bibiana MONROY Work Phone: [facility] Comment on above: Well woman exam with routine gynecological exam; Second trimester ; Vaginal discharge; STD exposure; Screening, , for anatomic survey Start: 03-05-2024 End: 03-05-2024 ambulatory BIBIANA ALCANTARA Not Available Start: 03-05-2024 End: 03-05-2024 Bamboo flowsheet Bibiana MONROY Work Phone: [facility] Start: 03-05-2024 End: 03-09-2024 Bamboo flowsheet Bibiana MONROY Work Phone: [facility] Start: 03-05-2024 End: 03-09-2024 [...] (routine) without abnormal findings DR RODNEY CAPUTO [facility] Start: 08-26-2021 End: 08-26-2021 ambulatory [...] Work Phone: Start: 07-16-2024 [facility]A (CLEAN/CATCH) PHARMACY MANAGER/MICRO IF IND. Jorge Luis Katrin DO Work [...] Phone: Start: 05-05-2024 GLUCOSE TOLERANCE 3 HOUR [facility] DO Work Phone: Start: 04-28-2024 ALL CBC [facility]O DIFF [facility] Work Phone: Start: 04-03-2024 Urnls dip stick/tabl et rgnt non-auto w/o micrscp [facility] DO Work Phone: Start: 03-28-2024 AFP, SERUM, [...] auto t hin layer prep mnl screen [facility] DO Work Phone: Start: 03-05-2024 URETHRITIS/DISCHARGE PLUS VAGINITIS (HTRX) Bibiana MONROY Work Phone: Start: 02-06-2024 Urnls dip stick/tabl et rgnt non-auto w/o micrscp [facility] DO Work Phone: Start: 01-27-2024 Antibody screen [...] Adult BMI Screening Adult BMI Screen ing [facility] Start: 04-16-2025 Tobacco Screening Tobacco Screening [facility] Start: 07-18-2024 End: 07-18-2024 Patient encounter procedure [facility] Comment on above: Arrived Start: 07-18-2024 End: 07-18-2025 CULTURE, GROUP B STREP WITH SUSCEPTIBLITY CULTURE, GROUP B STREP WITH SUSCEPTIBLITY Lab Routine Third trimester Expected: 07/18/2024, Expires: 07/18/2025 [facility] Healthcare Work Phone: Comment on above: Expected: 07/18/2024 , Expires: 07/18/2025 Start: 07-11-2024 End: 07-11-2024 Patient encounter procedure [facility] Comment on above: Arrived Start: 06-27-2024 End: 06-27-2024 Patient encounter procedure 06/27/2024 3:40 PM EST Routine [facility] [address] [place] [address] Jorge Luis Wilkes, DO [address] [place] [address] [facility] Start: 06-27-2024 End: 06-27-2025 US for US OB follow up transabdominal approach Imaging Routine Excessive growth affecting management of , antepartum, single or unspecified fetus Expected: 06/27/2024, Expires: 06/27/2025 [facility] Work Phone: Comment on above: Expected: 06/27/2024 , Expires: 06/27/2025 Start: 05-21-2024 End: 05-21-2024 Patient encounter procedure 05/21/2024 3:50 PM EST Routine [facility] [address] [place] [address] Jorge Luis Wilkes, DO [address] [place] [address] [facility] Start: 05-15-2024 End: 05-15-2024 Patient encounter procedure 05/15/2024 10:15 AM EST Appointment [facility] - Ultrasound [address] [place] [address] [facility] - Ultrasound Start: 05-07-2024 End: 05-07-2024 Patient encounter procedure [facility] Comment on above: Arrived Start: 04-16-2024 End: 04-16-2025 US MFM with or without consult US MFM with or without consult Imaging Routine Echogenic focus of heart of fetus affecting antepartum care of mother, single or unspecified fetus Low lying placenta, antepartum Expected: 04/16/2024, Expires: 04/16/2025 [facility] Work Phone: Comment on above: Expected: 04/16/2024 , Expires: 04/16/2025 Start: 04-16-2024 End: 04-16-2024 Patient encounter procedure [facility] Start: 04-04-2024 End: 04-04-2024 Patient encounter procedure 04/04/2024 3:10 PM EDT Routine [facility] [address] [place] [id number] Jorge Luis Wilkes, DO [address] [place] [address] [facility] Start: 04-03-2024 End: 04-03-2024 Patient encounter procedure 04/03/2024 2:20 PM EDT Routine [facility] [address] [place] [address] Jorge Luis Wilkes DO [address] [place] [address] Arrived [facility] Comment on above: Arrived Start: 04-03-2024 End: 04-03-2025 CBC panel - Blood by Automated count CBC Lab Routine Diabetes mellitus screening Expected: 04/03/2024 (Approximate), Expires: 04/03/2025 [facility] Comment on above: Expected: 04/03/2024 (Approximate), Expires: 04/03/2025 Start: 04-03-2024 End: 04-03-2025 Measurement of glucose 1 hour after glucose challenge for glucose tolerance test Glucose tolerance, 1 hour Lab Routine Diabetes mellitus screening Expected: 04/03/2024 (Approximate), Expires: 04/03/2025 [facility] Comment on above: Expected: 04/03/2024 (Approximate), Expires: 04/03/2025 Start: 04-03-2024 End: 04-03-2025 US for US OB INCOMPLETE ANATOMY Imaging Routine Encounter for follow-up ultrasound of anatomy Expected: 04/03/2024 (Approximate), Expires: 04/03/2025 [facility] Work Phone: Comment on above: Expected: 04/03/2024 (Approximate), Expires: 04/03/2025 Start: 03-05-2024 End: 03-05-2024 Patient encounter procedure [facility] Comment on above: Arrived Start: 03-05-2024 End: 09-02-2024 Alpha fetoprotein, maternal Alpha fetoprotein, maternal Lab Routine Second trimester Expected: 03/05/2024 (Approximate), Expires: 09/02/2024 [facility] Comment on above: Expected: 03/05/2024 (Approximate), Expires: 09/02/2024 Start: 03-05-2024 End: 03-05-2025 US for US OB ANATOMY SINGLE W US OB CERVICAL LENGTH Imaging Routine Screening, , for anatomic survey Expected: 03/05/2024 (Approximate), Expires: 03/05/2025 [facility] Comment on above: Expected: 03/05/2024 (Approximate), Expires: 03/05/2025 Start: 02-19-2024 Influenza vaccination [facility] Start: 10-15-2021 Screening for malign ant neoplasm of cervix [facility] Start: 10-15-2012 Screening for malign ant neoplasm of cervix Pap Smear [facility] Start: 10-15-2010 DTaP,Tdap and Td Vaccines (1 - Tdap) DTaP,Tdap and Td Vaccines (1 - Tdap) [facility] Start: 10-15-2009 Adult BMI Follow Up Plan Adult BMI Follow Up Plan [facility] Start: 10-15-2009 Adult BMI Screening Adult BMI Screen ing [facility] Start: 2003 Depression Screening Depression Scre ening [facility] Start: 2003 Tobacco Screening Tobacco Screening [facility] CHLAMYDIA TRACHOMATI S (GENITO/STI) CHLAMYDIA TRACHOMATIS (GENITO/STI) Lab Routine STD exposure Ordered: 03/05/2024 [facility] Comment on above: Ordered: 03/05/2024 Cytology Cervical or vaginal smear or scraping study Pap Smear Pathology and Cytology Routine Well woman exam with routine gynecological exam Ordered: 03/05/2024 [facility] Work Phone: Comment on above: Ordered: 03/05/2024 Human papilloma viru s DNA [Presence] in Unspecified specimen by Probe with amplification HPV DNA probe, amplified Microbiology Routine Well woman exam with routine gynecological exam Ordered: 03/05/2024 [facility] Comment on above: Ordered: 03/05/2024 Neisseria gonorrhoea e DNA [Presence] in Unspecified specimen by RIGOBERTO with probe detection Neisseria gonorrhea DNA probe, direct Lab Routine STD exposure Ordered: 03/05/2024 [facility] Comment on above: Ordered: 03/05/2024 SURESWAB(R) ADVANCED VAGINITIS PLUS, TMA SURESWAB(R) ADVANCED VAGINITIS PLUS, TMA Pathology and Cytology Routine Vaginal discharge Ordered: 03/05/2024 [facility] Comment on above: Ordered: 03/05/2024 Payers Date Payer Category Payer Private Health Insurance [employer] [id number] 2017 Unknown [employer] [id number] 2017-Present [address] [place] [address] [id number] 1991 Unknown [id number] 2.16840.1.113747.3.579.2. 593 1991 Unknown [id number] 2.840.1.596574.3.579.2. 593 1991 Unknown [id number] 2.16840.1.880023.3.579.2. 593 1991 Unknown [id number] 2.16840.1.126642.3.579.2. 593 1991 Unknown [id number] 2.840.1.328406.3.579.2. 593 1991 Unknown [id number] 2.16840.1.254913.3.579.2. 593 1991 Unknown [id number] 2.16840.1.598162.3.579.2. 593 1991 Unknown [id number] 2.16840.1.430959.3.579.2. 593 1991 Unknown [id number] 2.16840.1.138689.3.579.2. 593 1991 Unknown [id number] 2.16840.1.011332.3.579.2. 593 1991 Unknown [id number] 2.16840.1.925519.3.579.2. 593 1991 Unknown [id number] 2.16.840.1.590679.3.579.2. 59 1991 Unknown [id number] 2.16.840.1.059680.3.579.2. 593 1991 Unknown [id number] 2.16840.1.115961.3.579.2. 59 1991 Unknown [id number] 2.16.840.1.500258.3.579.2. 593 1991 Unknown [id number] 2.840.1.828766.3.579.2. 1285 1991 Unknown [id number] 2.840.1.310838.3.579.2. 1285 1991 Unknown [id number] 2.840.1.890300.3.579.2. 1285 1991 Unknown [id number] 2.840.1.125386.3.579.2. 1258 1991 Unknown [id number] 2.840.1.010632.3.579.2. 1258 1991 Unknown [id number] 2.16840.1.548822.3.579.2. 1258 1991 Unknown [id number] 2.840.1.161332.3.579.2. 1258 1991 Unknown [id number] 2.16840.1.389365.3.579.2. 1258 1991 Unknown [id number] 2.16840.1.845784.3.579.2. 1258 1991 Unknown [id number] 2.16840.1.025634.3.579.2. 1258 1991 Unknown [id number] 2.16840.1.908651.3.579.2. 1258 1991 Unknown [id number] 2.16.840.1.085725.3.579.2. 9 1991 Unknown [id number] 2.16.840.1.829468.3.579.2. 1258 1991 Unknown [id number] 2.16.840.1.053610.3.579.2. 9 1991 Unknown [id number] 2.16.840.1.373108.3.579.2. 1258 1991 Unknown [id number] 2.16.840.1.213165.3.579.2. 1258 1991 Unknown [id number] 2.16.840.1.176695.3.579.2. 1259 1959 Self-pay 1959 Unknown [id number] [employer] are - PPO [employer] Member Subscriber Plan / Payer (Effective for All Dates) Name: Cindy Rocha Relation to Subscriber: Self Name: Cindy Rocha Payer ID: Not on file Type: Not on file Address: [place] [id number] Unknown [id number] 2.16.840.1.476978.3.579.2. 593 Social History Date Type Detail Facility [...] panel [facility] Start: 11-20-2023 [facility] Start: 1990 Sex assigned at [facility] file [facility] Start: 04-10-2024 Sex Female (finding) [facility] Within the past 12 months [...] Luis Wilkes DO documented in this encounter [facility] 07-11-2024 History of Present illness Narrative [...] of: ELIANA Candelaria documented in this encounter [facility] 06-27-2024 History of Present illness Narrative [...] nursing note reviewed. Exam conducted with a visual lead present. Vitals: Estimated body mass index is [...] Luis Wilkes DO documented in this encounter [facility] 06-06-2024 History of Present illness Narrative [...] of: ELIANA Candelaria documented in this encounter [facility] 05-21-2024 History of Present illness Narrative [...] Luis Wilkes DO documented in this encounter [facility] 05-07-2024 History of Present illness Narrative [...] Pt was scheduled to go back to [facility] in 4 weeks for a f/up US visit for Echo focus of fetus. Pt states she is unable to make the appt and would like to have the US done here in [place]. Follow Up: Patient is to return to office in 2 week for routine OB appointment. Documented by Maggie Prieto MA on behalf of: ELIANA Candelaria documented in this encounter [facility] 04-16-2024 History of Present illness Narrative [...] Start Date End Date Taking? Authorizing Provider [id number] mg-mcg tablet Take 1 tablet [...] continue with routine care in your office [facility], the CDC, and other organizations representing maternal and public health professionals recommend that , , and lactating people and those considering receive the COVID-19 vaccination. Vaccination is the best method to reduce maternal and complications of SARS-CoV-2 infection. This document was created with [employer] technology. Though I make every effort to review the dictation as it is transcribed, on occasion the spoken word can be misinterpreted by the technology leading to inappropriate words, phrases, or sentences. This note is addressed to the requesting provider as a consultation for clinical guidance. Specific medical abbreviations are occasionally used and those are generally approved by the [place]?Board of?Obstetrics and?Gynecology?as well as?Steve palmer abbreviations. The above plan of care was based solely on the diagnoses for which a consultation was requested. ?More frequent testing may be indicated based on her other medical/obstetrical conditions. The management of other or medical conditions is beyond the scope of requested consultation and will continue to be followed by the primary metallurgical lab technician or primary care provider. Thank you for [...] procedures Referring and communicating with other health childbirth and infant care teacher (not separately reported) Documenting clinical information in [...] yes Have you been seen here at [facility] in a previous ? no Recent ER visits or hospitalizations? no Bring blood sugar log or meter with you today? (Please bring them with you for every visit at [facility]) n/a Flu vaccine (Apr-August)? no Any concerns that you would like me to mention to the provider today? no [facility] History of Present illness Narrative Reason [...] nursing note reviewed. Exam conducted with a visual lead present. Vitals: Estimated body mass index is [...] Luis Wilkes DO documented in this encounter [facility] 03-05-2024 History of Present illness Narrative [...] nursing note reviewed. Exam conducted with a visual lead present. Vitals: Estimated body mass index is [...] obtained without difficulty and [facility]. Orders [...] of: ELIANA Candelaria documented in this encounter [facility] 02-06-2024 History of Present illness Narrative [...] nursing note reviewed. Exam conducted with a visual lead present. Vitals: Estimated body mass index is [...] meat, and stay away from [facility]. Patient has been consulted regarding any further [...] weeks gestation of [facility] Diagnosis 26 weeks gestation [...] encounter [facility] HealthcareInstructionsNot on filedocumented in this encounterProMedict Health SystemInstructionsNot on filedocumented in this encounterProMer[facility] Summary Purpose Family History No [...] section and content) DATE CREATED AUTHOR 06/06/2021 [facility] DATE CREATED AUTHOR AUTHOR'S ORGANIZ ATION 05/12/2022 [facility] DATE CREATED AUTHOR AUTHOR'S ORGANIZ ATION 04/17/[address] DATE CREATED AUTHOR AUTHOR'S ORGANIZ ATION 05/17/2024 [facility] DATE CREATED AUTHOR AUTHOR'S ORGANIZ ATION 07/13/2024 [facility] EPIC Care Teams (unrecognized sec tion and content) Waste Picker 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 Specialty Start Date End Date Tamir Fuentes MD [address] [place] [address] PCP - General Family Medicine 10/12/23 Merlene Choe MD [address] [place] [address] Referring Physician Internal Medicine 10/12/23 Waste Picker 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 Specialty Start Date End Date Tamir Fuentes MD [address] [place] [address] PCP - General Family Medicine 10/12/23 Merlene Choe MD [address] [place] [phone] Referring Physician Internal Medicine 10/12/23 Waste Picker 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 Specialty Start Date End Date Tamir Fuentes MD [address], [id number] PCP - General Family Medicine 10/12/23 Bibiana Alcantara PA [address] [place] [address] Dr [place], [id number] PCP - Medical [employer] 06/20/17 06/19/99 Merlene Choe MD [address] [place] [id number] Referring Physician Internal Medicine 10/12/23 Waste Picker 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 Specialty Start Date End Date Tamir Fuentes MD [address] [place] [id number] PCP - General Family Medicine 10/12/23 Bibiana Alcantara PA [address] [place] [address] [place] [address] PCP - Medical [employer] 06/20/17 06/19/99 Merlene Choe MD [address] [place] [phone] Referring Physician Internal Medicine 10/12/23 Waste Picker 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 Specialty Start Date End Date Tamir Fuentes MD [address] [place] [address] PCP - General Family Medicine 10/12/23 Bibiana Alcantara PA [address] [place] [address] [place] [address] PCP - Medical [employer] 06/20/17 06/19/99 Merlene Choe MD [address], [phone] Referring Physician Internal Medicine 10/12/23 Waste Picker 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 Specialty Start Date End Date Tamir Fuentes MD [address], [id number] PCP - General Family Medicine 10/12/23 Bibiana Alcantara PA [address] [place] [address] [place] [address] PCP - Medical [employer] 06/20/17 06/19/99 Merlene Choe MD [address] [place] [phone] Referring Physician Internal Medicine 10/12/23 Waste Picker 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 Specialty Start Date End Date Tamir Fuentes MD [address], [place] [id number] PCP - General Family Medicine 10/12/23 Merlene Choe MD [address] [place] [phone] Referring Physician Internal Medicine 10/12/23 Waste Picker 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 Specialty Start Date End Date Tamir Fuentes MD [address] [place] [address] PCP - General Family Medicine 10/12/23 Merlene Choe MD [address] [place] [phone] Referring Physician Internal Medicine 10/12/23 Waste Picker 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 Specialty Start Date End Date Tamir Fuentes MD [address] [place] [address] PCP - General Family Medicine 10/12/23 Bibiana Alcantara PA [facility] [place] [address] PCP - Medical [employer] 06/20/17 06/19/99 Merlene Choe MD [address] [place] [phone] Referring Physician Internal Medicine 10/12/23 Waste Picker 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 Specialty Start Date End Date Tamir Fuentes MD [address] [place] [address] PCP - General Family Medicine 10/12/23 Bibiana Alcantara PA [address] [place] [address] [place] [address] PCP - Medical [employer] 06/20/17 06/19/99 Merlene Choe MD [address] [place] [phone] Referring Physician Internal Medicine 10/12/23 Waste Picker 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 Specialty Start Date End Date Tamir Fuentes MD [address] [place] [address] PCP - General Family Medicine 10/12/23 Bibiana Alcantara PA [address] [place] [address] [place] [address] PCP - Medical [employer] 06/20/17 06/19/99 Merlene Choe MD [address] [place] [phone] Referring Physician Internal Medicine 10/12/23 Waste Picker 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 Specialty Start Date End Date Tamir Fuentes MD [address] [place] [address] PCP - General Family Medicine 10/12/23 Bibiana Alcantara PA [address] [place] [address] [place] [address] PCP - Medical [employer] 06/20/17 06/19/99 Merlene Choe MD [address] [place] [phone] Referring Physician Internal Medicine 10/12/23 Reason for [...] BE BASED ON THE PRIMARY CLINICAL RECORDS. [employer] [facility]. provides no warranty or guarantee of the accuracy or completeness of information in this document.
== END 2024-07-18 16:14 | disposition home or self-care (01) ==
LOC: LAB 16:13
PROVIDERS: Visit Provider Obstetrics & Gynecology
DX: Z34.93 Encounter for supervision of normal pregnancy, unspecified, third trimester (principal)
CPT/HCPCS: 36415; 87081

== ENCOUNTER 2024-08-06 20:46 | Observation (INO) | payer OTHER, SELFPAY ==
--- OUTSIDE RECORDS SUMMARY | 2024-08-06 20:51 | XMS_ITS | CCD ---
Author Organization [facility] Care Team Providers Care Seaman Name Role Phone HARSHAL, DR STEVENS Attending [...] Unavailable Tamir Fuentes MD Primary Care Provider [phone] Unavailable Primary Care Provider Unavailabl e KATRIN, JORGE LUIS R Referring Unavailable MOUSSA, JEET NADIM Attending Unavailable KATRIN, JORGE LUIS R Referring Unavailable Quinton Bibiana MONROY Unavailable KATRIN, JORGE LUIS R Referring Unavailable QUINTON, BIBIANA Attending Unavailable KATRIN, JORGE LUIS Attending Unavailable QUINTON, BIBIANA Attending Unavailable KATRIN, JORGE LUIS Attending Unavailable DOLCE, EMILY Grimaldo Attending Unavailable [...] (1 source) Penicillin Drug Allergy [facility] Repository (20 sources) Penicillin G Drug Allergy 4 [facility] Work Phone: (20 sources) Penicillins; Translations: [PENICILLINS] Drug Allergy [address] [facility] (2 sources) Penicillins Propensity to adverse reactions to drug 4 [facility] Medications Current Medications Medication Drug Class(es) Dates Sig (Normalized) Sig (Original) clindamycin 300 mg oral capsule (2 sources) Lincosamide Antibacterial Start: 08-01-2024 End: 08-11-2024 take 1 capsule by mouth in the morning, then take 1 capsule by mouth in the evening, then take 1 capsule by mouth at bedtime clindamycin (Cleocin) 300 MG capsule Indications: Folliculitis Take 1 capsule (300 mg) by mouth in the morning and 1 capsule (300 mg) in the evening and 1 capsule (300 mg) before bedtime. Do all this for 10 days. 30 capsule 08/01/2024 08/11/2024 Active omeprazole 20 mg delayed release oral capsule (16 sources) Proton Pump Inhibitor Start: 06-27-2024 End: 06-27-2025 take 1 capsule by mouth before mealtime omeprazole (PriLOSEC) [address] capsule Indications: Heartburn during in third trimester Take 1 capsule (20 mg) by mouth in the morning. Take before meals. Do not crush or chew.. 30 capsule 06/27/2024 06/27/2025 Active [id number]-gjesstt fumarate-FA 28-800 mg-mcg tablet (2 sources) take 1 tablet by mouth in the morning MCU500-nynridg fumarate-FA 28-800 mg-mcg tablet Take 1 tablet by mouth in the morning. Active Vit-Fe Fumarate-FA ( Vitamins) 28-0.8 MG tablet (20 sources) Start: 01-09-2024 End: 01-08-2025 take 1 tablet by mouth once daily Vit-Fe Fumarate-FA ( Vitamins) 28-0.8 MG tablet Indications: First trimester Take 1 tablet by mouth Daily 30 tablet 01/09/2024 01/08/2025 Active Completed/Discontinued Medications Medication Drug [...] screening for Streptococcus B] Onset: 06-28-2021 Episodic Other skin disorders (2 sources) Folliculitis; Translations: [Follicular disorder, unspecified] 08-01-2024 Episodic Residual codes; unclassified (2 sources) Gestation [...] [36 weeks gestation of ] 07-18-2024 Episodic Residual codes; unclassified (2 sources) Gestation period, 37 weeks; Translations: [37 weeks gestation of ] 07-24-2024 Episodic Residual codes; unclassified (2 sources) Gestation period, 38 weeks; Translations: [38 weeks gestation of ] 08-01-2024 Episodic Unclassified (20 sources) OB Reminders Onset: [...] Range Facility Urinalysis macro (dipstick) panel (U)on 07-24-2024 Bilirubin, UA Negative Negative - 4(70) +++ mg/dL [facility] Blood, UA Positive Negative - 50 Grey/mcL [facility] Clarity, UA Cloudy [facility] Color, UA Yellow [facility] Glucose, UA Negative Negative - 1999(110) ++++ mg/dL [facility] Interpretation and review of laboratory results Abnormal [facility] Ketones, UA Negative Negative - 160(16) ++++ mg/dL [facility] Leukocytes, UA Positive Negative - 500+++ Juan Alberto/mcL [facility] Nitrite, UA Negative Negative - Positive [facility] pH, UA 7 5 - 9 [facility] Protein, UA Negative Negative - 2000(20) ++++ mg/dL [facility] Spec Grav, UA 1.015 1 - 1.03 [facility] Urobilinogen, UA 0.2 0.2 - 12 mg/dL [facility] ALL MISCELLANEOUS TESTon MISCELLANEOUS TEST COMMENT . [facility] Comment on above: Test Ordered: [id number] Strep Gp B Culture+Rflx Strep Gp B Culture+Rflx Negative CB Reference Range: Negative Centers for Disease Control and Prevention (CDC) and [place] [employer] of [employer]stetricians and Gynecologists (ACOG) guidelines for prevention of group B streptococcal (GBS) disease specify co-collection of a vaginal and rectal swab specimen to maximize sensitivity of GBS detection. Per the CDC and ACOG, swabbing both the lower vagina and rectum substantially increases the yield of detection compared with sampling the vagina alone. Penicillin G, ampicillin, or cefazolin are indicated for intrapartum prophylaxis of GBS colonization. Reflex susceptibility testing should be performed prior to use of clindamycin only on GBS isolates from penicillin- allergic women who are considered a high risk for anaphylaxis. Treatment with vancomycin without additional testing is warranted if resistance to clindamycin is noted. Performed at: [address] [id number] Corporate Responsibility Officer: Alex Montes De Oca PhD, Phone: [phone] GROUP B STREP [id number] Group B Streptococcus Colonization Detection Culture With Re [facility] [place] Urinalysis macro (dipstick) panel (U)on 07-18-2024 Bilirubin, UA Negative Negative - 4(70) +++ mg/dL [facility] Blood, UA Negative Negative - 50 Grey/mcL [facility] Clarity, UA Clear [facility] Color, UA Yellow [facility] Glucose, UA Negative Negative - 1999(110) ++++ mg/dL [facility] Interpretation and review of laboratory results Abnormal [facility] Ketones, UA Positive Negative - 160(16) ++++ mg/dL [facility] Comment on above: trace Leukocytes, UA Positive Negative - 500+++ Juan Alberto/mcL [facility] Comment on above: small Nitrite, UA Negative Negative - Positive [facility] pH, UA 7 5 - 9 [facility] Protein, UA Negative Negative - 1999(20) ++++ mg/dL [facility] Spec Grav, UA 1.015 1 - 1.03 [facility] Urobilinogen, UA 1.0 0.2 - 12 mg/dL [facility] UA (CLEAN/CATCH) CONSTRUCTION PROJECT ADMINISTRATOR/BERTRAND RO IF IND.on 07-16-2024 BILIRUBIN URINE Negative NEGATIVE [facility] BLOOD URINE Negative NEGATIVE [facility] Clarity (U) CLEAR CLEAR [facility] Color (U) LT. YELLOW YELLOW [facility] GLUCOSE URINE UA Negative NEGATIVE mg/dL [facility] Interpretation and review of laboratory results Abnormal [facility] Ketones Ql (U) Negative NEGATIVE mg/dL [facility] Leukocyte esterase Test strip Ql (U) Negative NEGATIVE [facility] NITRITE URINE Negative NEGATIVE [facility] pH (U) 6.5 [pH] 5.0 - 9.0 [facility] PROTEIN URINE Negative NEG/TRACE mg/dL [facility] SPECIFIC GRAVITY URINE <=1.005 Abnormal 1.005 - 1.025 [facility] URINE MICROSCOPIC INDICATED NO [facility] UROBILINOGEN URINE 0.2 EU/dL 0.2 - 1.0 EU/dL [facility] (U)on 07-11-2024 Bilirubin, UA Negative Negative - 4(70) +++ mg/dL [facility] Blood, UA Negative Negative - 50 Grey/mcL [facility] Clarity, UA Clear [facility] Color, UA Yellow [facility] Glucose, UA Negative Negative - 1999(110) ++++ mg/dL [facility] Interpretation and review of laboratory results Abnormal [facility] Ketones, UA Positive Negative - 160(16) ++++ mg/dL [facility] Leukocytes, UA Negative Negative - 500+++ Juan Alberto/mcL [facility] Nitrite, UA Negative Negative - Positive [facility] pH, UA 6 5 - 9 [facility] Protein, UA Negative Negative - 1999(20) ++++ mg/dL [facility] Spec Grav, UA 1.03 1 - 1.03 [facility] Urobilinogen, UA 0.2 0.2 - 12 mg/dL [facility] Urinalysis macro (dipstick) panel (U)on 06-27-2024 Bilirubin, UA Negative Negative - 4(70) +++ mg/dL [facility] Blood, UA Negative Negative - 50 Grey/mcL [facility] Clarity, UA Clear [facility] Color, UA Yellow [facility] Glucose, UA Negative Negative - 1999(110) ++++ mg/dL [facility] Interpretation and review of laboratory results Abnormal [facility] Ketones, UA Positive Negative - 160(16) ++++ mg/dL [facility] Comment on above: 15 Leukocytes, UA Negative Negative - 500+++ Juan Alberto/mcL [facility] Nitrite, UA Negative Negative - Positive [facility] pH, UA 6.5 5 - 9 [facility] Protein, UA Trace Negative - 1999(20) ++++ mg/dL [facility] Spec Grav, UA 1.02 1 - 1.03 [facility] Urobilinogen, UA 2.0 0.2 - 12 mg/dL [facility] Urinalysis macro (dipstick) panel (U)on 06-06-2024 Bilirubin, UA Negative Negative - 4(70) +++ mg/dL [facility] Blood, UA Negative Negative - 50 Grey/mcL [facility] Clarity, UA Clear [facility] Color, UA Yellow [facility] Glucose, UA Negative Negative - 1999(110) ++++ mg/dL [facility] Interpretation and review of laboratory results Abnormal [facility] Ketones, UA Negative Negative - 160(16) ++++ mg/dL [facility] Leukocytes, UA Trace Negative - 500+++ Juan Alberto/mcL [facility] Nitrite, UA Negative Negative - Positive [facility] pH, UA 7 5 - 9 [facility] Protein, UA Negative Negative - 1999(20) ++++ mg/dL [facility] Spec Grav, UA 1.015 1 - 1.03 [facility] Urobilinogen, UA 0.2 0.2 - 12 mg/dL [facility] Urinalysis macro (dipstick) panel (U)on 05-21-2024 Bilirubin, UA Negative Negative - 4(70) +++ mg/dL [facility] Blood, UA Negative Negative - 50 Grey/mcL [facility] Healthcare Clarity, UA Clear [facility] Color, UA Yellow [facility] Glucose, UA Negative Negative - 1999(110) ++++ mg/dL [facility] Interpretation and review of laboratory results Normal [facility] Ketones, UA Negative Negative - 160(16) ++++ mg/dL [facility] Leukocytes, UA Negative Negative - 500+++ Juan Alberto/mcL [facility] Nitrite, UA Negative Negative - Positive [facility] pH, UA 6 5 - 9 [facility] Protein, UA Negative Negative - 1999(20) ++++ mg/dL [facility] Spec Grav, UA 1.025 1 - 1.03 [facility] Urobilinogen, UA 0.2 0.2 - 12 mg/dL [facility] Urinalysis macro (dipstick) panel (U)on 05-07-2024 Bilirubin, UA Negative Negative - 4(70) +++ mg/dL [facility] Blood, UA Negative Negative - 50 Grey/mcL [facility] Healthcare Clarity, UA Clear [facility] Color, UA Yellow [facility] Glucose, UA Negative Negative - 1999(110) ++++ mg/dL [facility] Interpretation and review of laboratory results Normal [facility] Ketones, UA Negative Negative - 160(16) ++++ mg/dL [facility] Leukocytes, UA Negative Negative - 500+++ Juan Alberto/mcL [facility] Nitrite, UA Negative Negative - Positive [facility] pH, UA 5 5 - 9 [facility] Protein, UA Negative Negative - 1999(20) ++++ mg/dL [facility] Spec Grav, UA 1.02 1 - 1.03 [facility] Urobilinogen, UA 0.2 0.2 - 12 mg/dL [facility] GLUCOSE TOLERANCE 3 HOURon 1 07-05-2023 GLUCOSE TOLERANCE 3 HOUR High mg/dL [facility] Comment on above: GLU FAST 86 (<95) Co l: 05/05/24 0808 GLU 1HR 181H (<180) Col: 05/05/24 0912 GLU 2HR 135 (<155) Col: 05/05/24 1012 GLU 3HR 125 (<140) Col: 05/05/24 1112 Interpretation and review of laboratory results Abnormal [facility] ALL CBC WITH AUTO DIFFon BASOPHILS ABSOLUTE AUTO 0.1 [facility] Basophils/100 WBC (Bld) 0.5 % 0.2 - 2.0 % [facility] Eosinophils/100 WBC (Bld) 1.6 % 0.9 - 7.0 % [facility] Erythrocyte distribution width (RBC) [Ratio] 12.9 % 11.0 - 15.0 % [facility] Hematocrit (Bld) [Volume fraction] 37.9 % 36.0 - 48.0 % [facility] Hemoglobin (Bld) [Mass/Vol] 12.5 g/dL 12.0 - 16.0 g/dL [facility] IMMATURE GRANULOCYTES ABS AUTO 0.23 High [facility] Immature granulocytes/100 WBC (Bld) 1.8 % High 0.0 - 0.5 % [facility] Interpretation and review of laboratory results Abnormal [facility] LYMPHOCYTES ABSOLUTE AUTO 2.1 [facility] Lymphocytes/100 WBC (Bld) 17 % Low 20.5 - 60.0 % [facility] MCH (RBC) [Entitic mass] 31.5 pg 26.7 - 34.0 pg [facility] MCHC (RBC) [Mass/Vol] 33 g/dL 29.9 - 35.2 g/dL [facility] MCV (RBC) [Entitic vol] 95.5 fL 81.0 - 99.0 fL [facility] MONOCYTES ABSOLUTE AUTO 0.9 High [facility] Monocytes/100 WBC (Bld) 6.8 % 1.7 - 12.0 % [facility] NEUTROPHILS ABSOLUTE AUTO 9.1 High [facility] Neutrophils/100 WBC (Bld) 72.3 % 43.0 - 75.0 % [facility] Platelet mean volume (Bld) [Entitic vol] 9.5 fL 9.5 - 13.5 fL [facility] TBH EO # 0.2 [facility] TB PLT 244 [facility] RBC 3.97 Low [facility] WBC 12.6 High [facility] Urinalysis macro (dipstick) panel (U)on 04-03-2024 Bilirubin, UA Negative Negative - 4(70) +++ mg/dL [facility] Blood, UA Negative Negative - 50 Grey/mcL [facility] Clarity, UA Clear [facility] Color, UA Yellow [facility] Glucose, UA Negative Negative - 1999(110) ++++ mg/dL [facility] Interpretation and review of laboratory results Normal [facility] Ketones, UA Negative Negative - 160(16) ++++ mg/dL [facility] Leukocytes, UA Negative Negative - 500+++ Juan Alberto/mcL [facility] Nitrite, UA Negative Negative - Positive [facility] pH, UA 6.5 5 - 9 [facility] Protein, UA Negative Negative - 1999(20) ++++ mg/dL [facility] Spec Grav, UA 1.02 1 - 1.03 [facility] Urobilinogen, UA 0.2 0.2 - 12 mg/dL [facility] AFP, SERUM, OPEN SPINA BIFID Aon 03-31-2024 AFP MOM 1.42 . [facility] AFP VALUE 88.7 ng/mL . [facility] COMMENT: Comment . [facility] Comment on above: Radha Viveros , Ph.D., [facility] Director References: Available Upon Request. Multiples Of Median Cutoffs For AFP Elevations Ricardo 2.5 Black 2.8 IDD 2.0 Twins 4.5 Abbreviation Definitions IDD - Insulin Dep Diabetes OSBR - Open Spina Bifida Risk For further inquiries contact [facility] at [phone]. This test was developed and its performance characteristics determined by [employer]. It has not been cleared or approved by the Food and Drug Administration. Performed at: [facility] [address] [place], [place] [id number] Corporate Responsibility Officer: Priya Jung [facility], Phone: [phone] GEST. AGE ON COLLECTION DATE 20.4 . weeks [facility] GESTAT. AGE BASED ON As provided . [facility] Comment on above: Recalculations are n ot recommended when gestational dating by LMP and ultrasound are within 10 days. INSULIN DEP DIABETES No . [facility] INTERPRETATION Comment . [facility] Comment on above: Interpretation: Scre en Negative [...] Customer Services to discuss available options. The [place] [employer] recommends amniocentesis be offered to women age 35 and older. [age] [facility] MULTIPLE GESTATION No . [facility] OSBR RISK 1 IN 3404 . [facility] RACE . [facility] RESULTS Report . [facility] TEST RESULTS: Negative . [facility] WEIGHT 137 . lbs [facility] N N [id number] 1 17 N 1 Y 137 N N N N N White/ [facility] IGP,APTIMA HPV,AGE GDLNon AGE GDLN ACOG TESTING Note . [facility] Comment on above: TESTS RESULT FLAG UN ITS REF RANGE LAB Clinician Provided Cytology Information Source.............Cervix Other.............. No. of containers..01 ThinPrep Vial Age Algo ACOG Martha... 30-65 FLAG LEGEND: L-Low Normal,H-High Normal,LL-Alert Low,HH-Alert High <-Panic Low,>-Panic High,A-Abnormal,AA-Critical Abnormal Performed at: 01 =[address] [place] [address] Deysi Tidwell MD, HPV APTIMA Negative Negative [facility] Comment on above: This nucleic acid am plification test detects fourteen high- risk HPV types (16,18,31,33,35,39,45,51,52,56,58,59,66,68) without differentiation. Performed at: =[address] [id number] Corporate Responsibility Officer: Deysi Tidwell MD, Phone: [phone] Performed at: [address] [id number] Corporate Responsibility Officer: Deysi Tidwell MD, Phone: [phone] IGP, APTIMA HPV, RFX 16/18,45 Note . [facility] Comment on above: TESTS RESULT FLAG UN ITS REF RANGE LAB DIAGNOSIS: 02 NEGATIVE FOR INTRAEPITHELIAL LESION OR MALIGNANCY. Specimen adequacy: 02 Satisfactory for evaluation. Endocervical and/or squamous metaplastic cells (endocervical component) are present. Performed by: 02 Alina Muniz, Performance Test Engineer (ASCP) . 02 Note: Note 02 The [...] <-Panic Low,>-Panic High,A-Abnormal,AA-Critical Abnormal Performed at: [address] [address] Deysi Tidwell MD, SPATULA-ALONE [facility] Healthcare URETHRITIS/DISCHARGE PLUS VA GINITIS (HTRX)on 03-07-2024 ATOPOBIUM VAGINAE 29.123 Abnormal [facility] ATOPOBIUM VAGINAE Detected Abnormal [facility] BVAB 2,3 (BACTERIAL VAGINOSIS ASSOCIATED BACTERIA 2, 3); MOBILUNCUS SPP 0.000 [facility] BVAB 2,3 (BACTERIAL VAGINOSIS ASSOCIATED BACTERIA 2, 3); MOBILUNCUS SPP Not detected [facility] TAMIR ALBICANS, PARAPSILOSIS, TROPICALIS 0.000 [facility] TAMIR ALBICANS, PARAPSILOSIS, TROPICALIS Not detected [facility] TAMIR GLABRATA 0.000 [facility] TAMIR GLABRATA Not detected [facility] TAMIR KRUSEI 0.000 [facility] TAMIR KRUSEI Not detected [facility] CHLAMYDIA TRACHOMATIS 0.000 [facility] CHLAMYDIA TRACHOMATIS Not detected [facility] GARDNERELLA VAGINALIS 0.000 [facility] GARDNERELLA VAGINALIS Not detected [facility] Interpretation and review of laboratory results Abnormal [facility] MEGASPHAERA (TYPES 1, 2) 0.000 [facility] MEGASPHAERA (TYPES 1, 2) Not detected [facility] MYCOPLASMA GENITALIUM 0.000 [facility] MYCOPLASMA GENITALIUM Not detected [facility] NEISSERIA GONORRHOEAE 0.000 [facility] NEISSERIA GONORRHOEAE Not detected [facility] TRICHOMONAS VAGINALIS 0.000 [facility] TRICHOMONAS VAGINALIS Not detected [facility] Cytology Cervical or vaginal smear or scraping studyon 03-05-2024 [facility] Urinalysis macro (dipstick) panel (U)on 03-05-2024 Bilirubin, UA Negative Negative - 4(70) +++ mg/dL [facility] Blood, UA Negative Negative - 50 Grey/mcL [facility] Clarity, UA Clear [facility] Color, UA Yellow [facility] Glucose, UA Negative Negative - 1999(110) ++++ mg/dL [facility] Interpretation and review of laboratory results Normal [facility] Ketones, UA Negative Negative - 160(16) ++++ mg/dL [facility] Leukocytes, UA Negative Negative - 500+++ Juan Alberto/mcL [facility] Nitrite, UA Negative Negative - Positive [facility] pH, UA 6.5 5 - 9 [facility] Protein, UA Negative Negative - 1999(20) ++++ mg/dL [facility] Spec Grav, UA 1.020 1 - 1.03 [facility] Urobilinogen, UA 1.0 0.2 - 12 mg/dL [facility] Urinalysis macro (dipstick) panel (U)on 02-06-2024 Bilirubin, UA Negative Negative - 4(70) +++ mg/dL [facility] Blood, UA Negative Negative - 50 Grey/mcL [facility] Clarity, UA Clear [facility] Color, UA Yellow [facility] Glucose, UA Negative Negative - 1999(110) ++++ mg/dL [facility] Interpretation and review of laboratory results Normal [facility] Ketones, UA Negative Negative - 160(16) ++++ mg/dL [facility] Leukocytes, UA Negative Negative - 500+++ Juan Alberto/mcL [facility] Nitrite, UA Negative Negative - Positive [facility] pH, UA 7.0 5 - 9 [facility] Protein, UA Negative Negative - 1999(20) ++++ mg/dL [facility] Spec Grav, UA 1.015 1 - 1.03 [facility] Urobilinogen, UA 0.2 0.2 - 12 mg/dL [facility] CBC without diffon Hematocrit (Bld) [Volume fraction] 40.3 % [facility] Hemoglobin (Bld) [Mass/Vol] 13.3 g/dL [facility] Platelets (Bld) [#/Vol] 329 10*3/uL [facility] Rbc Mcv (Fl) By Automated Count 93.3 [facility] Chlamydia/GC by PCR Mariaa Sw abon 01-27-2024 Chlamydia Dna(Pcr) Not detected [facility] Gonorrhoeae Dna(Pcr) Not detected [facility] HIV 1&2 AB/AG Screen (P24 AG )on 01-27-2024 HIV 1&2 AB/AG Non-Reactive [facility] Hepatitis B surface antigeno n 01-27-2024 Hepatitis B Surface Antigen Negative [facility] Hepatitis C(HCV) Ab w/ Refle x to PCRon 01-27-2024 HCV Ab Ql (S) non reacitve [facility] No Panel Informationon 01-26 [facility] Rubella IGG immune statuson 01-27-2024 Rubella immune IgG 9.62 [facility] Syphilis Total(Unknown Syphi lis Status)on 01-27-2024 Syphilis Non-Reactive [facility] Type and screenon 01-27-2024 Abo/Rh(D) Positive [facility] LIPID PROFILEon 03-29-2022 CHOL-HDL RATIO NORM SEE BELOW Normal [facility] Comment on above: Result Comment: 3.3 - 4.4 LOW RISK 4.4 - 7.1 AVERAGE RISK 7.1 - 11.0 MODERATE RISK >11.0 HIGH RISK Performed By: #### L IPID #### [facility] [address] [address] [address] Parth Lucero Cholesterol [Mass/Vol] 197 mg/dL Normal <=200 [facility] Comment on above: Performed By: #### L IPID #### [facility] [address] [address] [address] Parth Lucero Cholesterol in HDL [Mass/Vol] 66 mg/dL Critically high 40-60 [facility] Comment on above: Performed By: #### L IPID #### [facility] [address] [address] [address] Parth Lucero Cholesterol in LDL [Mass/Vol] 120.0 mg/dL Normal [facility] Comment on above: Performed By: #### L IPID #### [facility] [address] [address] [address] Parth Lucero Cholesterol.total/Ch olesterol in HDL [Mass ratio] 3.0 {ratio} Normal [facility] Comment on above: Performed By: #### L IPID #### [facility] [address] [address] [address] Parth Lucero HDL NORMAL > or = 60 mg/dl - LO W CARDIOVASCULAR RISK <40 mg/dl - HIGH CARDIOVASCULAR RISK Normal [facility] Comment on above: Performed By: #### L IPID #### [facility] [address] [address] [address] Parth Lucero LDL CALC NORMAL SEE BELOW Normal [facility] Comment on above: Result Comment: <100 mg/dl OPTIMAL 100 - 129 mg/dl NEAR OR ABOVE OPTIMAL 130 - 159 mg/dl BORDERLINE HIGH 160 - 189 mg/dl HIGH >190 mg/dl VERY HIGH Performed By: #### L IPID #### [facility] [address] [place] [address] Dr. Parth Lucero Triglyceride [Mass/Vol] 55 mg/dL Normal <=150 [facility] Comment on above: Performed By: #### L IPID #### [facility] [address] [place] [address] Dr. Parth Lucero VLDL CALC 11.0 mg/dL Normal [facility] Comment on above: Performed By: #### L IPID #### [facility] [address] [address] [address] Parth Lucero CBC AUTO DIFFon 01-08-2022 BASO # 0.0 103/ul Normal 0.0-0.1 [facility] Comment on above: Performed By: #### [id number] #### [facility] [address] [address] [address] Parth Lucero Basophils/100 WBC (Bld) 0.3 % Normal 0.2-2.0 [facility] Comment on above: Performed By: #### [id number] #### [facility] [address] [place] [address] Dr. Parth Lucero EO # 0.1 103/ul Normal 0.0-0.7 [facility] Comment on above: Performed By: #### [id number] #### [facility] [address] [place] [address] Dr. Parth Lucero Eosinophils/100 WBC (Bld) 0.4 % Critically low 0.9-7.0 [facility] Comment on above: Performed By: #### [id number] #### [facility] [address] [place] [address] Dr. Parth Lucero Erythrocyte distribution width (RBC) [Ratio] 13.4 % Normal 11.0-15.0 [facility] Comment on above: Performed By: #### [id number] #### [facility] [address] [place] [address] Dr. Parth Lucero Hematocrit (Bld) [Volume fraction] 36.0 % Normal 36.0-48.0 [facility] Comment on above: Performed By: #### [id number] #### [facility] [address] [place] [address] Dr. Parth Lucero Hemoglobin (Bld) [Mass/Vol] 12.1 g/dL Normal 12.0-16.0 [facility] Comment on above: Performed By: #### 4 [id number] #### [facility] [address] [place] [address] Dr. Parth Lucero IG # 0.10 10e3/ul Critically high 0.00-0.03 [facility] Comment on above: Performed By: #### 4 [id number] #### [facility] [address] [place] [address] Dr. Parth Lucero IG % 0.7 % Critically high 0.0-0.5 [facility] Comment on above: Performed By: #### 4 [id number] #### [facility] [address] [place] [address] Dr. Parth Lucero LYMPH # 2.1 103/ul Normal 1.2-3.8 [facility] Comment on above: Performed By: #### 4 [id number] #### [facility] [address] [place] [address] Dr. Parth Lucero Lymphocytes/100 WBC (Bld) 14.0 % Critically low 20.5-60.0 [facility] Comment on above: Performed By: #### 4 [id number] #### [facility] [address] [place] [address] Dr. Parth Lucero MANUAL DIFF REQ NO Normal [facility] Comment on above: Performed By: #### 4 [id number] #### [facility] [address] [place] [address] Dr. Parth Lucero MCH (RBC) [Entitic mass] 31.0 pg Normal 26.7-34.0 [facility] Comment on above: Performed By: #### 4 [id number] #### [facility] [address] [place] [address] Dr. Parth Lucero MCHC (RBC) [Mass/Vol] 33.6 g/dL Normal 29.9-35.2 [facility] Comment on above: Performed By: #### 4 [id number] #### [facility] [address] [place] [address] Dr. Parth Lucero MCV (RBC) [Entitic vol] 92.3 fL Normal 81.0-99.0 [facility] Comment on above: Performed By: #### 4 [id number] #### [facility] [address] [place] [address] Dr. Parth Lucero MONO # 1.2 103/ul Critically high 0.3-0.8 [facility] Comment on above: Performed By: #### 4 [id number] #### [facility] [address] [place] [address] Dr. Parth Lucero Monocytes/100 WBC (Bld) 7.7 % Normal 1.7-12.0 [facility] Comment on above: Performed By: #### 4 [id number] #### [facility] [address] [place] [address] Dr. Parth Lucero NEUT # 11.7 103/ul Critically high 1.4-6.[address] [facility] Comment on above: Performed By: #### 4 [id number] #### [facility] [address] [address] [address] Parth Lucero Neutrophils/100 WBC (Bld) 76.9 % Critically high 43.0-75.0 [facility] Comment on above: Performed By: #### 4 [id number] #### [facility] [address] [address] [address] Parth Lucero Platelet mean volume (Bld) [Entitic vol] 10.0 fL Normal 9.5-13.5 [facility] Comment on above: Performed By: #### 4 [id number] #### [facility] [address] [address] [address] Parth Lucero PLT 231 103/ul Normal 150-450 [facility] Comment on above: Performed By: #### 4 [id number] #### [facility] [address] [place] [address] Dr. Parth Lucero RBC 3.90 106/ul Critically low 4.20-5.40 [facility] Comment on above: Performed By: #### 4 [id number] #### [facility] [address] [address] [address] Parth Lucero WBC 15.2 103/ul Critically high 4.0-11.0 [facility] Comment on above: Performed By: #### 4 [id number] #### [facility] [address] [place] [address] Dr. Parth Lucero CBC AUTO DIFFon 01-07-2022 BASO # 0.0 103/ul Normal 0.0-0.1 [facility] Comment on above: Performed By: #### C BC #### [facility] [address] [address] [address] Parth Lucero Basophils/100 WBC (Bld) 0.4 % Normal 0.2-2.0 [facility] Comment on above: Performed By: #### C BC #### [facility] [address] [address] [address] Parth Lucero EO # 0.1 103/ul Normal 0.0-0.7 [facility] Comment on above: Performed By: #### C BC #### [facility] [address] [address] [address] Parth Lucero Eosinophils/100 WBC (Bld) 1.1 % Normal 0.9-7.0 [facility] Comment on above: Performed By: #### C BC #### [facility] [address] [address] [address] Parth Lucero Erythrocyte distribution width (RBC) [Ratio] 13.3 % Normal 11.0-15.0 [facility] Comment on above: Performed By: #### C BC #### [facility] [address] [address] [address] Parth Lucero Hematocrit (Bld) [Volume fraction] 39.2 % Normal 36.0-48.0 [facility] Comment on above: Performed By: #### C BC #### [facility] [address] [place] [address] Dr. Parth Lucero Hemoglobin (Bld) [Mass/Vol] 13.3 g/dL Normal 12.0-16.0 [facility] Comment on above: Performed By: #### C BC #### [facility] [address] [place] [address] Dr. Parth Lucero IG # 0.10 10e3/ul Critically high 0.00-0.03 [facility] Comment on above: Performed By: #### C BC #### [facility] [address] [place] [address] Dr. Parth Lucero IG % 1.0 % Critically high 0.0-0.5 [facility] Comment on above: Performed By: #### C BC #### [facility] [address] [address] [address] Parth Lucero LYMPH # 1.8 103/ul Normal 1.2-3.8 [facility] Comment on above: Performed By: #### C BC #### [facility] [address] [place] [address] Dr. Parth Lucero Lymphocytes/100 WBC (Bld) 18.0 % Critically low 20.5-60.0 [facility] Comment on above: Performed By: #### C BC #### [facility] [address] [place] [address] Dr. Parth Lucero MANUAL DIFF REQ NO Normal [facility] Comment on above: Performed By: #### C BC #### [facility] [address] [place] [address] Dr. Parth Lucero MCH (RBC) [Entitic mass] 31.1 pg Normal 26.7-34.0 [facility] Comment on above: Performed By: #### C BC #### [facility] [address] [place] [address] Dr. Parth Lucero MCHC (RBC) [Mass/Vol] 33.9 g/dL Normal 29.9-35.2 [facility] Comment on above: Performed By: #### C BC #### [facility] [address] [place] [address] Dr. Parth Lucero MCV (RBC) [Entitic vol] 91.8 fL Normal 81.0-99.0 [facility] Comment on above: Performed By: #### C BC #### [facility] [address] [place] [address] Dr. Parth Lucero MONO # 1.1 103/ul Critically high 0.3-0.8 [facility] Comment on above: Performed By: #### C BC #### [facility] [address] [place] [address] Dr. Parth Lucero Monocytes/100 WBC (Bld) 11.3 % Normal 1.7-12.0 [facility] Comment on above: Performed By: #### C BC #### [facility] [address] [place] [address] Dr. Parth Lucero NEUT # 6.9 103/ul Critically high 1.4-6.5 [facility] Comment on above: Performed By: #### C BC #### [facility] [address] [place] [address] Dr. Parth Lucero Neutrophils/100 WBC (Bld) 68.2 % Normal 43.0-75.0 [facility] Comment on above: Performed By: #### C BC #### [facility] [address] [place] [address] Dr. Parth Lucero Platelet mean volume (Bld) [Entitic vol] 10.6 fL Normal 9.5-13.5 [facility] Comment on above: Performed By: #### C BC #### [facility] [address] [place] [address] Dr. Parth Lucero PLT 258 103/ul Normal 150-450 [facility] Comment on above: Performed By: #### C BC #### [facility] [address] [address] [address] Parth Lucero RBC 4.27 106/ul Normal 4.20-5.40 [facility] Comment on above: Performed By: #### C BC #### [facility] [address] [place] [address] Dr. Parth Lucero WBC 10.1 103/ul Normal 4.0-11.0 [facility] Comment on above: Performed By: #### C BC #### [facility] [address] [place] [address] Dr. Parth Lucero [facility]-19 SARS-CoV-2 (COVID-19) RNA RIGOBERTO+probe Ql (Unsp spec) Not detected Normal NOT DETECTED [facility] Comment on above: Result Comment: When [...] for this test is supported by the [place] of [employer] and Human Service's declaration that [...] longer be used). Performed By: #### 4 [id number] #### [facility] [address] [place] [address] Dr. Parth Lucero DRUG SCREEN RAPID (URINE)on 01-07-2022 AMP Negative Normal NEGATIVE [facility] Comment on above: Performed By: #### L IPID #### [facility] [address] [place] [address] Dr. Parth Lucero BAR Negative Normal NEGATIVE [facility] Comment on above: Performed By: #### L IPID #### [facility] [address] [place] [address] Dr. Parth Lucero BUP Negative Normal NEGATIVE [facility] Comment on above: Performed By: #### L IPID #### [facility] [address] [place] [address] Dr. Parth Lucero BZO Negative Normal NEGATIVE [facility] Comment on above: Performed By: #### L IPID #### [facility] [address] [place] [address] Dr. Parth Lucero AMINTA Negative Normal NEGATIVE [facility] Comment on above: Performed By: #### L IPID #### [facility] [address] [place] [address] Dr. Parth Lucero CUT-OFFS SEE BELOW Normal [facility] Comment on above: Result Comment: [...] Performed By: #### L IPID #### [facility] [address] [place] [address] Dr. Parth Lucero DRUG CUT HEADER DRUG CLASS TEST SYSTEM CUT-OFF CONCENTRATIONS ARE FOLLOWS: Normal [facility] Comment on above: Performed By: #### L IPID #### [facility] [address] [place] [address] Dr. Parth Lucero mAMP Negative Normal NEGATIVE [facility] Comment on above: Performed By: #### L IPID #### [facility] [address] [place] [address] Dr. Parth Lucero MTD Negative Normal NEGATIVE [facility] Comment on above: Performed By: #### L IPID #### [facility] [address] [place] [address] Dr. Parth Lucero OPI Negative Normal NEGATIVE [facility] Comment on above: Performed By: #### L IPID #### [facility] [address] [place] [address] Dr. Parth Lucero OXY Negative Normal NEGATIVE [facility] Comment on above: Performed By: #### L IPID #### [facility] [address] [place] [address] Dr. Parth Lucero PCP Negative Normal NEGATIVE [facility] Comment on above: Performed By: #### L IPID #### [facility] [address] [place] [address] Dr. Parth Lucero PPX Negative Normal NEGATIVE [facility] Comment on above: Performed By: #### L IPID #### [facility] [address] [place] [address] Dr. Parth Lucero TCA Negative Normal NEGATIVE [facility] Comment on above: Performed By: #### L IPID #### [facility] [address] [place] [address] Dr. Parth Lucero THC Negative Normal NEGATIVE [facility] Comment on above: Performed By: #### L IPID #### [facility] [address] [place] [address] Dr. Parth Lucero TYPE AND SCREENon 01-07-2022 TYPE AND SCREEN Negative Normal [facility] Comment on above: Performed By: #### T NS #### [facility] [address] [place] [address] Dr. Parth Lucero GROUP B STREP CULTUREon 11-19 S. agalactiae Ag Ql (Unsp spec) Culture Observations: NEGATIVE FOR GROUP B STREPTOCOCCUS. Normal [facility] Comment on above: Performed By: #### 4 [id number] #### [facility] [address] [address] [address] Parth Lucero GTT 3 HR PREGon 2021 Glucose [Mass/Vol] 93 mg/dL Normal 74-106 [facility] Comment on above: Performed By: #### G TT3P #### [facility] [address] [address] [address] Parth Lucero Glucose [Mass/Vol] 173 mg/dL Normal [facility] Comment on above: Performed By: #### G TT3P #### [facility] [address] [address] [address] Parth Lucero Glucose [Mass/Vol] 149 mg/dL Normal [facility] Comment on above: Performed By: #### G TT3P #### [facility] [address] [address] [address] Parth Lucero Glucose [Mass/Vol] 128 mg/dL Normal [facility] Comment on above: Performed By: #### G TT3P #### [facility] [address] [address] [address] Parth Lucero GLUCOSE - 1HRon 10-09-2021 Glucose [Mass/Vol] 150 mg/dL Critically high 74-106 T [facility] Comment on above: Performed By: #### G LU1HR #### [facility] [address] [address] [address] Parth Lucero HEMOGRAM AND PLATELon 2021 Hematocrit (Bld) [Volume fraction] 37.6 % Normal 36.0-48.0 [facility] Comment on above: Performed By: #### H H #### [facility] [address] [place] [address] Dr. Parth Lucero Hemoglobin (Bld) [Mass/Vol] 12.3 g/dL Normal 12.0-16.0 [facility] Comment on above: Performed By: #### H H #### [facility] [address] [address] [address] Parth Lucero MCH (RBC) [Entitic mass] 31.2 pg Normal 26.7-34.0 [facility] Comment on above: Performed By: #### H H #### [facility] [address] [address] [address] Parth Lucero MCHC (RBC) [Mass/Vol] 32.7 g/dL Normal 29.9-35.2 [facility] Comment on above: Performed By: #### H H #### [facility] [address] [place] [address] Dr. Parth Lucero MCV (RBC) [Entitic vol] 95.4 fL Normal 81.0-99.0 [facility] Comment on above: Performed By: #### H H #### [facility] [address] [place] [address] Dr. Parth Lucero PLT 240 103/ul Normal 150-450 [facility] Comment on above: Performed By: #### H H #### [facility] [address] [address] [address] Parth Lucero RBC 3.94 106/ul Critically low 4.20-5.40 [facility] Comment on above: Performed By: #### H H #### [facility] [address] [place] [address] Dr. Parth Lucero WBC 9.7 103/ul Normal 4.0-11.0 [facility] Comment on above: Performed By: #### H H #### [facility] [address] [place] [address] Dr. Parth Lucero PAP ACOG PANEL 2: 21 to 29on 09-02-2021 . . Normal [facility] Comment on above: Performed By: #### 4 [id number] #### [facility] [address] [place] [address] Dr. Parth Lucero Age Gdln ACOG Testing 21-29 Normal [facility] Comment on above: Performed By: #### 4 [id number] #### [facility] [address] [address] [address] Parth Lucero DIAGNOSIS: Comment Normal [facility] Comment on above: Result Comment: NEGA TIVE FOR INTRAEPITHELIAL LESION OR MALIGNANCY. Performed By: #### 4 [id number] #### [facility] [address] [address] [address] Parth Lucero Methodology: Comment Normal [facility] Comment on above: Result Comment: This liquid based ThinPrep(R) pap test was screened with the use of an image guided system. Performed By: #### 4 [id number] #### [facility] [address] [place] [address] Dr. Parth Lucero Note: Comment Normal [facility] Comment on above: Result Comment: The Pap smear is a screening test designed to aid in the detection of premalignant and malignant conditions of the uterine cervix. It is not a diagnostic procedure and should not be used as the sole means of detecting cervical cancer. Both false-positive and false-negative reports do occur. . Performed By: #### 4 [id number] #### [facility] [address] [place] [address] Dr. Parth Lucero Performed by: Comment Normal [facility] Comment on above: Result Comment: Vivian Paris, Performance Test Engineer (ASCP) Performed By: #### 4 [id number] #### [facility] [address] [place] [address] Dr. Parth Lucero Reflex Criteria: Comment Normal [facility] Comment on above: Result Comment: The HPV DNA reflex criteria were not met with this specimen result therefore, no HPV testing was performed. . Performed By: #### 4 [id number] #### [facility] [address] [place] [address] Dr. Parth Lucero Specimen adequacy: Comment Normal [facility] Comment on above: Result Comment: Sati sfactory for evaluation. No endocervical component is identified. Performed By: #### 4 [id number] #### [facility] [address] [place] [address] Dr. Parth Lucero US PREG ANATOMY SINGLEon [...] by ultrasound, 56% by expected EDC; FL/AC: 0.528449 FL/BPD: 0.496235 HC/AC: 1.328079 GESTATIONAL AGE: Age by EDC: 21 weeks 0 days ARMANI by EDC: 01/12/2022 Age by current US: 20 weeks 1 day ARMANI by current US: 01/11/2022 IMPRESSION: Normal anatomy scan *Reference: [employer] Practice Guideline for the performance of Obstetric Ultrasound Examinations, March 20, 2007. Electronically authenticated by: ALONSO SANDERS Date: 2021-09-01 16:20 Normal [facility] CHLAMYDIA/GONOCOCCUS RIGOBERTO ( AB/URINE/PAPon 08-29-2021 Chlamydia trachomatis, RIGOBERTO Negative Normal Negative [facility] Comment on above: Performed By: #### L IPID #### [facility] [address] [address] [address] Parth Lucero Neisseria gonorrhoeae, RIGOBERTO Negative Normal Negative [facility] Comment on above: Performed By: #### L IPID #### [facility] [address] [place], [place] [address] Dr. Parth Lucero AFP MATERNAL FOR SPINA BIFID Aon 08-18-2021 AFP MoM 1.13 Normal [facility] Comment on above: Performed By: #### 4 [id number] #### [facility] [address] [address] [address] Parth Lucero AFP Value 52.2 ng/mL Normal [facility] Comment on above: Performed By: #### 4 [id number] #### [facility] [address] [address] [address] Parth Lucero AFP, Serum for Spina Bifida Report Normal [facility] Comment on above: Performed By: #### 4 [id number] #### [facility] [address] [address] [address] Parth Lucero Comment Comment Normal [facility] Comment on above: Result Comment: Ruth Viveros, Ph.D., [facility] Director . References: Available Upon Request. . Multiples Of Median Cutoffs For AFP Elevations Ricardo 2.5 Black 2.8 IDD 2.0 Twins 4.5 Abbreviation Definitions IDD - Insulin Dep Diabetes OSBR - Open Spina Bifida Risk . For further inquiries contact [employer] [facility] at [phone]. Performed By: #### 4 [id number] #### [facility] [address] [address] [address] Parth Modi Age Collection Date 18.0 weeks [facility] Comment on above: Performed By: #### 4 [id number] #### [facility] [address] [address] [address] Parth Lucero Gestat, Age Based on LMP [facility] Comment on above: Result Comment: Reca lculations are not recommended when gestational dating by LMP and ultrasound are within 10 days. Performed By: #### 4 [id number] #### [facility] [address] [address] [address] Parth Lucero Insulin Dep Diabetes No Normal [facility] Comment on above: Performed By: #### 4 [id number] #### [facility] [address] [address] [address] Parth Lucero Interpretation Comment Normal [facility] Comment on above: Result Comment: Inte [...] Customer Services to discuss available options. The [place] recommends amniocentesis be offered to women age 35 and older. Performed By: #### 4 [id number] #### [facility] [address] [place] [address] Dr. Parth Lucero Maternal Age at ARMANI 31.[address] [age] [address] [facility] Comment on above: Performed By: #### 4 [id number] #### [facility] [address] [place] [address] Dr. Parth Lucero Multiple Gestation No Normal [facility] Comment on above: Performed By: #### 4 [id number] #### [facility] [address] [place] [address] Dr. Parth Lucero OSBR Risk 1 [place] [address] [facility] Comment on above: Performed By: #### 4 [id number] #### [facility] [address] [place] [address] Dr. Parth Lucero PDF . [facility] Comment on above: Result Comment: This test was developed and its performance characteristics determined by [employer]. It has not been cleared or approved by the Food and Drug Administration. Performed By: #### 4 [id number] #### [facility] [address] [place] [address] Dr. Parth Lucero Race Normal [facility] Comment on above: Performed By: #### 4 [id number] #### [facility] [address] [place] [address] Dr. Parth Lucero Test Results: Negative Normal [facility] Comment on above: Performed By: #### 4 [id number] #### [facility] [address] [place] [address] Dr. Parth Lucero HEP B SURFACE ANTIGEN SCREEN on 06-25-2021 HBsAg Screen Negative Normal Negative [facility] Comment on above: Performed By: #### H BSANS #### [facility] [address] [place] [address] Dr. Parth Lucero HEPATITIS C VIRUS AB W/ REFL EX QUANTon 06-25-2021 HCV AB <0.1 Normal 0.0-0.9 [facility] Comment on above: Performed By: #### 4 [id number] #### [facility] [address] [place] [address] Dr. Parth Lucero Interpretation: Comment Normal [facility] Comment on above: Result Comment: Nega tive Not infected with HCV, unless recent infection is suspected or other evidence exists to indicate HCV infection. Performed By: #### [id number] #### [facility] [address] [place] [address] Dr. Parth Lucero HIV 1 AND 2 WITH REFLEXon HIV Screen 4th Generation wRfx Non-Reactive Normal Non Reactive [facility] Comment on above: Performed By: #### L IPID #### [facility] [address] [place] [address] Dr. Parth Lucero RPR QUANTon 06-25-2021 Rapid Plasma Reagin, Quant Non-Reactive Normal NonRea<1:1 [facility] Comment on above: Performed By: #### L IPID #### [facility] [address] [place] [address] Dr. Parth Lucero RUBELLA AB IGGon 06-25-2021 Rubella Antibodies, IgG 13.00 index Normal Immune >0.99 [facility] Comment on above: Result Comment: Non- immune <0.90 Equivocal 0.90 - 0.99 Immune >0.99 Performed By: #### [id number] #### [facility] [address] [place] [address] Dr. Parth Lucero CBC AUTO DIFFon 06-23-2021 BASO # 0.0 103/ul Normal 0.0-0.1 [facility] Comment on above: Performed By: #### L IPID #### [facility] [address] [place], [place] [address] Dr. Parth Lucero Basophils/100 WBC (Bld) 0.3 % Normal 0.2-2.0 [facility] Comment on above: Performed By: #### L IPID #### [facility] [address] [place] [address] Dr. Parth Lucero EO # 0.1 103/ul Normal 0.0-0.7 [facility] Comment on above: Performed By: #### L IPID #### [facility] [address] [place] [address] Dr. Parth Lucero Eosinophils/100 WBC (Bld) 1.1 % Normal 0.9-7.0 [facility] Comment on above: Performed By: #### L IPID #### [facility] [address] [place] [address] Dr. Parth Lucero Erythrocyte distribution width (RBC) [Ratio] 12.7 % Normal 11.0-15.0 [facility] Comment on above: Performed By: #### L IPID #### [facility] [address] [place] [address] Dr. Parth Lucero Hematocrit (Bld) [Volume fraction] 38.2 % Normal 36.0-48.0 [facility] Comment on above: Performed By: #### L IPID #### [facility] [address] [place] [address] Dr. Parth Lucero Hemoglobin (Bld) [Mass/Vol] 13.0 g/dL Normal 12.0-16.0 [facility] Comment on above: Performed By: #### L IPID #### [facility] [address] [place] [address] Dr. Parth Lucero IG # 0.04 10e3/ul Critically high 0.00-0.03 [facility] Comment on above: Performed By: #### L IPID #### [facility] [address] [place] [address] Dr. Parth Lucero IG % 0.4 % Normal 0.0-0.5 [facility] Comment on above: Performed By: #### L IPID #### [facility] [address] [address] [address] Parth Lucero LYMPH # 2.3 103/ul Normal 1.2-3.8 [facility] Comment on above: Performed By: #### L IPID #### [facility] [address] [place] [address] Dr. Parth Lucero Lymphocytes/100 WBC (Bld) 23.8 % Normal 20.5-60.0 [facility] Comment on above: Performed By: #### L IPID #### [facility] [address] [place] [address] Dr. Parth Lucero MANUAL DIFF REQ NO Normal [facility] Comment on above: Performed By: #### L IPID #### [facility] [address] [place] [address] Dr. Parth Lucero MCH (RBC) [Entitic mass] 31.6 pg Normal 26.7-34.0 [facility] Comment on above: Performed By: #### L IPID #### [facility] [address] [place] [address] Dr. Parth Lucero MCHC (RBC) [Mass/Vol] 34.0 g/dL Normal 29.9-35.2 [facility] Comment on above: Performed By: #### L IPID #### [facility] [address] [place] [address] Dr. Parth Lucero MCV (RBC) [Entitic vol] 92.9 fL Normal 81.0-99.0 [facility] Comment on above: Performed By: #### L IPID #### [facility] [address] [place] [address] Dr. Parth Lucero MONO # 0.8 103/ul Normal 0.3-0.8 [facility] Comment on above: Performed By: #### L IPID #### [facility] [address] [place] [address] Dr. Parth Lucero Monocytes/100 WBC (Bld) 7.6 % Normal 1.7-12.0 [facility] Comment on above: Performed By: #### L IPID #### [facility] [address] [address] [address] Parth Lucero NEUT # 6.6 103/ul Critically high 1.4-6.5 [facility] Comment on above: Performed By: #### L IPID #### [facility] [address] [place] [address] Dr. Parth Lucero Neutrophils/100 WBC (Bld) 66.8 % Normal 43.0-75.0 [facility] Comment on above: Performed By: #### L IPID #### [facility] [address] [place] [address] Dr. Parth Lucero Platelet mean volume (Bld) [Entitic vol] 9.4 fL Critically low 9.5-13.5 [facility] Comment on above: Performed By: #### L IPID #### [facility] [address] [place] [address] Dr. Parth Lucero PLT 320 103/ul Normal 150-450 [facility] Comment on above: Performed By: #### L IPID #### [facility] [address] [place] [address] Dr. Parth Lucero RBC 4.11 106/ul Critically low 4.20-5.40 [facility] Comment on above: Performed By: #### L IPID #### [facility] [address] [place] [address] Dr. Parth Lucero WBC 9.8 103/ul Normal 4.0-11.0 [facility] Comment on above: Performed By: #### L IPID #### [facility] [address] [place] [address] Dr. Parth Lucero CULTURE URINEon 06-23-2021 CULTURE URINE Culture Observations : MODERATE GROWTH OF MIXED GENITAL BERNARDINO. NO POTENTIAL PATHOGENS SEEN. Normal [facility] Comment on above: Performed By: #### U RCX #### [facility] [address] [place] [address] Dr. Parth Lucero GLYCOHEMOGLOBIN A1Con 2021 ADA RECOMMENDATION ADA THERAPEUTIC TARGET 6.0 - 7.0 ACTION SUGGESTED > 7.0 Normal [facility] Comment on above: Performed By: #### A 1C #### [facility] [address] [place] [address] Dr. Parth Lucero Glucose [Mass/Vol] 105 mg/dL Normal [facility] Comment on above: Performed By: #### A 1C #### [facility] [address] [place] [address] Dr. Parth Lucero HbA1c (Bld) [Mass fraction] 5.3 % Normal <=6.0 [facility] Comment on above: Performed By: #### A 1C #### [facility] [address] [place] [address] Dr. Parth Lucero TAYLA BOX TEST PT SEND OUTo n 06-23-2021 SENT TO REF LAB 06/23/2021 Normal [facility] Comment on above: Performed By: #### [id number] #### [facility] [address] [place] [address] Dr. Parth Lucero TYPE AND SCREENon 06-23-2021 TYPE AND SCREEN Negative Normal [facility] Comment on above: Performed By: #### [id number] #### [facility] [address] [place] [address] Dr. Parth Lucero US PREG TVon 06-15-2021 [...] by: ALONSO SANDERS Date: 2021-06-15 09:44 Normal [facility] Auth for Release of Medical Recordson 06-05-2021 Auth for Release of Medical Records [id number]. [id number]:[id number] Normal [facility] Vital Signs Date Time Vital Sign Value Performing Clinician Facility 08-01-2024 15:40-0500 Body mass index (BMI) [Ratio] 29.49 kg/m2 Jorge Luis Katrin DO Work Phone: [facility] 08-01-2024 15:40-0500 Body weight 77.93 kg Jorge Luis Katrin DO Work Phone: [facility] 08-01-2024 15:40-0500 Diastolic blood pressure 82 mm[Hg] Jorge Luis Katrin DO Work Phone: [facility] 08-01-2024 15:40-0500 Systolic blood pressure 122 mm[Hg] Jorge Luis Katrin DO Work Phone: [facility] 07-24-2024 15:18-0500 Body mass index (BMI) [Ratio] 29.66 kg/m2 Bibiana MONROY Work Phone: [facility] 07-24-2024 15:18-0500 Body weight 78.38 kg Bibiana Alcantara PA Work Phone: [facility] 07-24-2024 15:18-0500 Diastolic blood pressure 82 mm[Hg] Bibiana Alcantara PA Work Phone: [facility] 07-24-2024 15:18-0500 Systolic blood pressure 130 mm[Hg] Bibiana Alcantara PA Work Phone: [facility] 07-18-2024 16:25-0500 Body mass index (BMI) [Ratio] 28.84 kg/m2 Jorge Luis Katrin DO Work Phone: [facility] 07-18-2024 16:25-0500 Body weight 76.2 kg Jorge Luis Katrin DO Work Phone: [facility] 07-18-2024 16:25-0500 Diastolic blood pressure 76 mm[Hg] Jorge Luis Katrin DO Work Phone: [facility] 07-18-2024 16:25-0500 Systolic blood pressure 114 mm[Hg] Jorge Luis Katrin DO Work Phone: [facility] 07-11-2024 16:13-0500 Body mass index (BMI) [Ratio] 29.15 kg/m2 Bibiana Quinton PA Work Phone: [facility] 07-11-2024 16:13-0500 Body weight 77.02 kg Bibiana Quinton PA Work Phone: [facility] 07-11-2024 16:13-0500 Diastolic blood pressure 74 mm[Hg] Bibiana Quinton PA Work Phone: [facility] 07-11-2024 16:13-0500 Systolic blood pressure 112 mm[Hg] Bibiana Latham PA Work Phone: [facility] 06-27-2024 16:21-0500 Body mass index (BMI) [Ratio] 27.98 kg/m2 Jorge Luis Katrin DO Work Phone: [facility] 06-27-2024 16:21-0500 Body weight 73.94 kg Jorge Luis Katrin DO Work Phone: [facility] 06-27-2024 16:21-0500 Diastolic blood pressure 70 mm[Hg] Jorge Luis Katrin DO Work Phone: [facility] 06-27-2024 16:21-0500 Systolic blood pressure 112 mm[Hg] Jorge Luis Katrin DO Work Phone: [facility] 06-06-2024 16:04-0500 Body mass index (BMI) [Ratio] 27.46 kg/m2 Bibiana Latham PA Work Phone: [facility] 06-06-2024 16:04-0500 Body weight 72.58 kg Bibiana Latham PA Work Phone: [facility] 06-06-2024 16:04-0500 Diastolic blood pressure 66 mm[Hg] Bibiana Latham PA Work Phone: [facility] 06-06-2024 16:04-0500 Systolic blood pressure 110 mm[Hg] Bibiana Latham PA Work Phone: [facility] 05-21-2024 16:56-0500 Body mass index (BMI) [Ratio] 27.09 kg/m2 Jorge Luis Katrin DO Work Phone: [facility] 05-21-2024 16:56-0500 Body weight 71.58 kg Jorge Luis Katrin DO Work Phone: [facility] 05-21-2024 16:56-0500 Diastolic blood pressure 64 mm[Hg] Jorge Luis Katrin DO Work Phone: [facility] 05-21-2024 16:56-0500 Systolic blood pressure 106 mm[Hg] Jorge Luis Katrin DO Work Phone: [facility] 05-07-2024 16:39-0500 Body mass index (BMI) [Ratio] 26.09 kg/m2 Bibiana Alcantara PA Work Phone: [facility] 05-07-2024 16:39-0500 Body weight 68.95 kg Bibiana Quinton PA Work Phone: [facility] 05-07-2024 16:39-0500 Diastolic blood pressure 68 mm[Hg] Bibiana Latham PA Work Phone: [facility] 05-07-2024 16:39-0500 Systolic blood pressure 112 mm[Hg] Bibiana Alcantara PA Work Phone: [facility] 04-16-2024 14:18-0400 Body height 160 cm Jeet Tavares MD Work Phone: [facility] 04-16-2024 14:18-0400 Body mass index (BMI) [Ratio] 26.39 kg/m2 Jeet Tavares MD Work Phone: [facility] 04-16-2024 14:18-0400 Body weight 67.59 kg Jeet Tavares MD Work Phone: [facility] 04-16-2024 14:18-0400 Diastolic blood pressure 78 mm[Hg] Jeet Tavares MD Work Phone: [facility] 04-16-2024 14:18-0400 Heart rate 102 /min Jeet Tavares MD Work Phone: [facility] 04-16-2024 14:18-0400 Systolic blood pressure 133 mm[Hg] Jeet Tavares MD Work Phone: [facility] 04-03-2024 14:57-0400 Body mass index (BMI) [Ratio] 25.4 kg/m2 Jorge Luis Katrin DO Work Phone: [facility] 04-03-2024 14:57-0400 Body weight 67.13 kg Jorge Luis Katrin DO Work Phone: [facility] 04-03-2024 14:57-0400 Diastolic blood pressure 64 mm[Hg] Jorge Luis Katrin DO Work Phone: [facility] 04-03-2024 14:57-0400 Systolic blood pressure 100 mm[Hg] Jorge Luis Katrin DO Work Phone: [facility] 03-05-2024 16:05-0400 Body mass index (BMI) [Ratio] 23.54 kg/m2 Bibiana MONROY Work Phone: [facility] 03-05-2024 16:05-0400 Body weight 62.2 kg Bibiana MONROY Work Phone: [facility] 03-05-2024 16:05-0400 Diastolic blood pressure 74 mm[Hg] Bibiana MONROY Work Phone: [facility] 03-05-2024 16:05-0400 Systolic blood pressure 112 mm[Hg] Bibiana MONROY Work Phone: [facility] 02-06-2024 15:48-0400 Body mass index (BMI) [Ratio] 23.25 kg/m2 Jorge Luis Katrin DO Work Phone: [facility] 02-06-2024 15:48-0400 Body weight 61.43 kg Jorge Luis Katrin DO Work Phone: [facility] 02-06-2024 15:48-0400 Diastolic blood pressure 74 mm[Hg] Jorge Luis Katrin DO Work Phone: [facility] 02-06-2024 15:48-0400 Systolic blood pressure 112 mm[Hg] Jorge Luis Katrin DO Work Phone: [facility] 08-18-2021 18:08-0500 Body weight 63.[address] RODNEY CAPUTO [facility] Comment on above: Performed By: #### [id number] #### [facility] [address] [address] [address] Parth Lucero Encounters Encounter Date Encounter Type Care Provider Facility Start: 08-01-2024 End: 08-01-2024 ambulatory JORGE LUIS KATRIN Not Available Start: 08-01-2024 End: 08-01-2024 flow sheet Jorge Luis Katrin DO Work Phone: [facility] Comment on above: Third trimester preg alfredo; 38 weeks gestation of ; Folliculitis Start: 08-01-2024 End: 08-01-2024 Bamboo flowsheet Jorge Luis Katrin DO Work Phone: [facility] Start: 08-01-2024 End: 08-01-2024 Bamboo flowsheet Jorge Luis Katrin DO Work Phone: [facility] Start: 07-24-2024 End: 07-24-2024 ambulatory BIBIANA ALCANTARA Not Available Start: 07-24-2024 End: 07-24-2024 flow sheet Bibiana MONROY Work Phone: [facility] Comment on above: Third trimester preg alfredo; 37 weeks gestation of Start: 07-24-2024 End: 07-24-2024 Bamboo flowsheet Bibiana MONROY Work Phone: [facility] Start: 07-24-2024 End: 07-24-2024 Bamboo flowsheet Bibiana MONROY Work Phone: [facility] Start: 07-18-2024 End: 07-18-2024 flow sheet Jorge Luis Katrin DO Work Phone: [facility] Comment on above: Third trimester preg alfredo; 36 weeks gestation of Start: 07-18-2024 End: 07-18-2024 ambulatory JORGE LUIS KATRIN Not Available Start: 07-18-2024 End: 07-18-2024 Bamboo flowsheet Jorge Luis Katrin DO Work Phone: [facility] Start: 07-18-2024 End: 07-23-2024 Bamboo flowsheet Jorge Luis Katrin DO Work Phone: [facility] Start: 07-18-2024 End: 07-23-2024 Clinisync Result Encounter Jorge Luis Katrin DO Work Phone: [facility] Unsolicited Start: 07-16-2024 End: 07-16-2024 Clinisync Result Encounter Jorge Luis Katrin DO Work Phone: [facility] Unsolicited Start: 07-16-2024 End: 07-16-2024 [...] End: 05-15-2024 ambulatory JORGE LUIS R KATRIN [facility] Start: 05-07-2024 End: 05-07-2024 flow sheet Bibiana MONROY Work Phone: [facility] Comment on above: 26 weeks gestation o f ; Second trimester ; Elevated glucose tolerance test Start: 05-07-2024 End: 05-07-2024 ambulatory BIBIANA ALCANTARA Not Available Start: 05-07-2024 End: 05-07-2024 Bamboo flowsheet Bibiana MONROY Work Phone: [facility] Start: 05-07-2024 End: 05-07-2024 Bamboo flowsheet Bibiana MONROY Work Phone: [facility] Start: 05-05-2024 End: 05-05-2024 Clinisync [...] Jeet Tavares MD Work Phone: [facility] [place] Comment on above: Echogenic focus of h eart of fetus affecting antepartum care of mother, single or unspecified fetus (Primary Dx); Low lying placenta, antepartum; Suspected condition not found; Family history of congenital heart defect; 23 weeks gestation of Start: 04-16-2024 End: 04-16-2024 ambulatory [facility] Start: 04-11-2024 End: 04-11-2024 Chart abstracting Jeet Tavares MD Work Phone: [facility] Start: 04-03-2024 End: 04-03-2024 flow sheet [...] Patient encounter procedure Bibiana MONROY Work Phone: [facility] Work Phone: Start: 03-05-2024 End: 03-05-2024 Periodic preventive med est patient 18-39 yrs Bibiana MONROY Work Phone: [facility] Comment on above: Well woman [...] (routine) without abnormal findings DR RODNEY CAPUTO [facility] Start: 08-26-2021 End: 08-26-[address] RODNEY CAPUTO Facility:[facility] Start: 08-26-2021 End: 08-26-2021 Encounter for gynecological examination (general) (routine) without abnormal findings DR RODNEY CAPUTO Facility:[facility] Start: 08-11-2021 End: 08-12-[address] RODNEY CAPUTO Facility:[facility] Start: 06-23-2021 End: 06-24-[address] RODNEY CPAUTO Facility:[facility] Start: 06-15-2021 End: 06-16-[address] RODNEY CAPUTO Facility:[facility] Procedures Date Procedure Procedure Detail Performing Clinician Start: 07-24-2024 Urnls dip stick/tabl et rgnt non-auto w/o micrscp Bibiana MONROY Work Phone: Start: 07-18-2024 Urnls dip stick/tabl et rgnt non-auto w/o micrscp Jorge Luis Katrin DO Work Phone: Start: 07-18-2024 ALL MISCELLANEOUS TEST Jorge Luis Katrin DO Work Phone: Start: 07-16-2024 [facility] UA (CLEAN/CATCH) CONSTRUCTION PROJECT ADMINISTRATOR/MICRO IF IND. Jorge Luis Katrin DO Work [...] auto t hin layer prep mnl screen [facility] DO Work Phone: Start: 03-05-2024 URETHRITIS/DISCHARGE PLUS [...] Adult BMI Screening Adult BMI Screen ing [facility] Start: 04-16-2025 Tobacco Screening Tobacco Screening [facility] Start: 08-08-2024 End: 08-08-2024 Patient encounter procedure 08/08/2024 3:20 PM EST Routine [facility] [address] [place] [address] Jorge Luis Wilkes, DO [address] [place] [address] [facility] Start: 08-01-2024 End: 08-01-2024 Patient encounter procedure 08/01/2024 3:00 PM EST Routine [facility] [address] [place] [address] Jorge Luis Wilkes, DO [address] [place] [address] [facility] Start: 07-24-2024 End: 07-24-2024 Patient encounter procedure 07/24/2024 2:50 PM EST Routine [facility] [address] [place] [id number] Bibiana Alcantara, ELIANA [address] [place] [address] [facility] Start: 07-18-2024 End: 07-18-2024 Patient encounter procedure [facility] Comment on above: Arrived Start: 07-18-2024 End: 07-18-2025 CULTURE, GROUP B STREP WITH SUSCEPTIBLITY CULTURE, GROUP B STREP WITH SUSCEPTIBLITY Lab Routine Third trimester Expected: 07/18/2024, Expires: 07/18/2025 [facility] Work Phone: Comment on above: Expected: 07/18/2024 , Expires: 07/18/2025 Start: 07-11-2024 End: 07-11-2024 Patient encounter procedure [facility] Comment on above: Arrived Start: 06-27-2024 End: 06-27-2024 Patient encounter procedure 06/27/2024 3:40 PM EST Routine [facility] [address] [facility] [id number] Jorge Luis Wilkes, DO [address] [place] [address] [facility] Start: 06-27-2024 End: 06-27-2025 US for US OB follow up transabdominal approach Imaging Routine Excessive growth affecting management of , antepartum, single or unspecified fetus Expected: 06/27/2024, Expires: 06/27/2025 [facility] Work Phone: Comment on above: Expected: 06/27/2024 , Expires: 06/27/2025 Start: 05-21-2024 End: 05-21-2024 Patient encounter procedure 05/21/2024 3:50 PM EST Routine [facility] [address] [facility] [phone] Jorge Luis Wilkes, DO [address] [place] [address] [facility] Start: 05-15-2024 End: 05-15-2024 Patient encounter procedure 05/15/2024 10:15 AM EST Appointment [facility] Ul[facility]ound [address] [place] [address] [facility] Start: 05-07-2024 End: 05-07-2024 [...] End: 04-16-2024 Patient encounter procedure [facility] [place] Start: 04-04-2024 End: 04-04-2024 Patient encounter procedure 04/04/2024 3:10 PM EDT Routine [facility] [address] [facility] [id number] Jorge Luis Wilkes, DO [address] [place] [address] [facility] Start: 04-03-2024 End: 04-03-2024 Patient encounter procedure 04/03/2024 2:20 PM EDT Routine [facility] [address] [facility] [phone] Jorge Luis Wilkes, DO [address] [place], [place] [id number] Arrived [facility] Comment on above: [...] mellitus screening Expected: 04/03/2024 (Approximate), Expires: 04/03/2025 [facility] Comment on above: Expected: 04/03/2024 (Approximate), Expires: 04/03/2025 Start: 04-03-2024 End: 04-03-2025 US for US OB INCOMPLETE ANATOMY Imaging Routine Encounter for follow-up ultrasound of anatomy Expected: 04/03/2024 (Approximate), Expires: 04/03/2025 [facility] Work Phone: Comment on above: Expected: 04/03/2024 (Approximate), Expires: 04/03/2025 Start: 03-05-2024 End: 03-05-2024 Patient encounter procedure [facility] Comment on above: Arrived Start: 03-05-2024 End: 09-02-2024 Alpha fetoprotein, maternal Alpha fetoprotein, maternal Lab Routine Second trimester Expected: 03/05/2024 (Approximate), Expires: 09/02/2024 [facility] Comment on above: Expected: 03/05/2024 (Approximate), Expires: 09/02/2024 Start: 03-05-2024 End: 03-05-2025 US for US OB ANATOMY SINGLE W US OB CERVICAL LENGTH Imaging Routine Screening, , for anatomic survey Expected: 03/05/2024 (Approximate), Expires: 03/05/2025 [facility] Comment on above: Expected: 03/05/2024 (Approximate), Expires: 03/05/2025 Start: 02-19-2024 Influenza vaccination [facility] Start: 10-15-2021 Screening for malign ant neoplasm of cervix [facility] Start: 10-15-2012 Screening for malign ant neoplasm of cervix Pap Smear [facility] Start: 10-15-2010 DTaP,Tdap and Td Vaccines (1 - Tdap) DTaP,Tdap and Td Vaccines (1 - Tdap) [facility] Start: 10-15-2009 Adult BMI Follow Up Plan Adult BMI Follow Up Plan [facility] Start: 10-15-2009 Adult BMI Screening Adult BMI Screen ing [facility] Start: 2003 Depression Screening Depression Scre ening [facility] Start: 2003 Tobacco Screening Tobacco Screening [facility] CHLAMYDIA TRACHOMATI S (GENITO/STI) CHLAMYDIA TRACHOMATIS (GENITO/STI) Lab Routine STD exposure Ordered: 03/05/2024 [facility] Comment on above: Ordered: 03/05/2024 Cytology Cervical or vaginal smear or scraping study Pap Smear Pathology and Cytology Routine Well woman exam with routine gynecological exam Ordered: 03/05/2024 [facility] Work Phone: Comment on above: Ordered: 03/05/2024 Human papilloma viru s DNA [Presence] in Unspecified specimen by Probe with amplification HPV DNA probe, amplified Microbiology Routine Well woman exam with routine gynecological exam Ordered: 03/05/2024 [facility] Comment on above: Ordered: 03/05/2024 Neisseria gonorrhoea e DNA [Presence] in Unspecified specimen by RIGOBERTO with probe detection Neisseria gonorrhea DNA probe, direct Lab Routine STD exposure Ordered: 03/05/2024 [facility] Comment on above: Ordered: 03/05/2024 SURESWAB(R) ADVANCED VAGINITIS PLUS, TMA SURESWAB(R) ADVANCED VAGINITIS PLUS, TMA Pathology and Cytology Routine Vaginal discharge Ordered: 03/05/2024 [facility] Comment on above: Ordered: 03/05/2024 Payers Date Payer Category Payer Private Health Insurance [employer] [id number] 2017 Unknown [employer] [id number] 2017-Present [address] [place] [address] [id number] 1991 Unknown [id number] 1991 Unknown [id number] 1991 Unknown [id number] 1991 Unknown [id number] 1991 Unknown [id number] 2.16.840.1.946943.3.579.2. 593 1991 Unknown [id number] 2.16840.1.084940.3.579.2. 593 1991 Unknown [id number] 2.16840.1.814715.3.579.2. 593 1991 Unknown [id number] 2.840.1.402101.3.579.2. 593 1991 Unknown [id number] 2.16840.1.882400.3.579.2. 593 1991 Unknown [id number] 2.16840.1.925500.3.579.2. 593 1991 Unknown [id number] 2.16.840.1.941932.3.579.2. 593 1991 Unknown [id number] 2.16840.1.884818.3.579.2. 593 1991 Unknown [id number] 2.16.840.1.028386.3.579.2. 593 1991 Unknown [id number] 2.16.840.1.740105.3.579.2. 593 1991 Unknown [id number] 2.16.840.1.811390.3.579.2. 593 1991 Unknown [id number] 2.16.840.1.781570.3.579.2. 1286 1991 Unknown [id number] 2.16.840.1.186660.3.579.2. 1285 1991 Unknown [id number] 2.16.840.1.925531.3.579.2. 1285 1991 Unknown [id number] 2.16.840.1.454361.3.579.2. 1258 1991 Unknown [id number] 2.16.840.1.850262.3.579.2. 1258 1991 Unknown [id number] 2.16.840.1.198387.3.579.2. 1258 1991 Unknown [id number] 2.16840.1.856120.3.579.2. 1258 1991 Unknown [id number] 2.16.840.1.047434.3.579.2. 1258 1991 Unknown [id number] 2.16840.1.098966.3.579.2. 1258 1991 Unknown [id number] 2.16840.1.166827.3.579.2. 1258 1991 Unknown [id number] 2.16840.1.701076.3.579.2. 1258 1991 Unknown [id number] 2.16840.1.354419.3.579.2. 1258 1991 Unknown [id number] 2.16840.1.746136.3.579.2. 1258 1991 Unknown [id number] 2.16.840.1.759205.3.579.2. 1258 1991 Unknown [id number] 2.16840.1.326760.3.579.2. 1258 1991 Unknown [id number] 2.16840.1.597663.3.579.2. 1258 1991 Unknown [id number] 2.16840.1.990445.3.579.2. 1258 1991 Unknown [id number] 2.16.840.1.299270.3.579.2. 1259 1991 Unknown [id number] 2.16.840.1.756963.3.579.2. 1259 1991 Unknown [id number] 2.16.840.1.957153.3.579.2. 1259 1959 Self-pay 1959 Unknown [id number] [employer] are - [employer] 1.2.840.481967.1.13.424.2. 7.9.573397.402.315 Unknown [id number] 2.16.840.1.767175.3.579.2. 593 Social History Date Type Detail Facility Start: 10-12-2023 End: 04-11-2024 Tobacco smoking status NHIS Never smoked tobacco [facility] Start: 10-12-2023 End: 04-11-2024 Tobacco use and exposure Smokeless tobacco non-user [facility] Start: 02-06-2024 End: 08-01-2024 Alcoholic beverage intake Ex-drinker (finding) [facility] Start: 12-07-2023 End: 02-06-2024 Alcoholic beverage intake [facility] Start: 12-07-2023 End: 04-16-2024 Tobacco use panel [facility] Start: 11-20-2023 [facility] Start: 1990 Sex assigned at Not on file [facility] Start: 04-10-2024 Sex Female (finding) [facility] Within the past 12 months we worried whether our food would run out before we got money to buy more. Never True [facility] Goals Date Patient Goal Desired Activity /State Personal health goal Clinical Notes 02-06-2024 to 08-01-2024 Ivana Loeraspencer, ALICE - 08/01/2024 3:00 PM Marisa Alcantara, ELIANA - 07/24/2024 2:50 PM Marisa Alcantara, ELIANA - 07/18/2024 4:00 PM ELIANA Mesa - 07/11/2024 3:50 PM Minda Uriarte, ALICE - 06/27/2024 3:40 PM EST Note Date & Type Note Facility 08-01-2024 History of Present illness Narrative Reason for [...] Constitutional: Appearance: Normal appearance. She is well-developed. Genitourinary: Vulva normal. Cardiovascular: Rate and Rhythm: Normal rate and [...] nursing note reviewed. Exam conducted with a black powder glazing operator present. Vitals: Estimated body mass index is 29.49 kg/m as calculated from the following: Height as of 12/07/23: 5' 4 . Weight as of this encounter: 171 lb 12.8 oz. BP: 122/82 Patient's last menstrual period was 11/06/2023. ASSESSMENT & PLAN ICD-10-CM 1. Third trimester Z34.93 POCT urinalysis dipstick manually resulted 2. 38 weeks gestation of Z3A.38 POCT urinalysis dipstick manually resulted Return OB: Patient presents today for a routine obstetrics appointment. Patient is currently 38w3d . Patient states she is doing well [...] Luis Wilkes DO documented in this encounter [facility] 07-24-2024 History of Present illness Narrative Reason for [...] reviewed. Vitals: Estimated body mass index is 29.66 kg/m as calculated from the following: Height as of 12/07/23: 5' 4 . Weight as of this encounter: 172 lb 12.8 oz. BP: 130/82 Patient's last menstrual period was 11/06/2023. ASSESSMENT & PLAN ICD-10-CM 1. Third trimester Z34.93 POCT urinalysis dipstick manually resulted 2. 37 weeks gestation of Z3A.37 Return OB: Patient presents today for a routine obstetrics appointment. Patient is currently 37w2d . Patient states she is doing well [...] of: ELIANA Candelaria documented in this encounter [facility] 07-18-2024 History of Present illness Narrative Reason [...] Luis Wilkes DO documented in this encounter [facility] 07-11-2024 History of Present illness Narrative Reason [...] of: ELIANA Candelaria documented in this encounter [facility] 06-27-2024 History of Present illness Narrative Reason [...] nursing note reviewed. Exam conducted with a black powder glazing operator present. Vitals: Estimated body mass index [...] Luis Wilkes DO documented in this encounter [facility] 06-06-2024 History of Present illness Narrative Reason [...] of: ELIANA Candelaria documented in this encounter [facility] 05-21-2024 History of Present illness Narrative Reason [...] Luis Wilkes DO documented in this encounter [facility] 05-07-2024 History of Present illness Narrative Reason [...] Pt was scheduled to go back to [facility] in 4 weeks for a f/up US visit for Echo focus of fetus. Pt states she is unable to make the appt and would like to have the US done here in [place]. Follow Up: Patient is to return to office in 2 week for routine OB appointment. Documented by Maggie Prieto MA on behalf of: ELIANA Candelaria documented in this encounter [facility] 04-16-2024 History of Present illness Narrative [facility] [...] Start Date End Date Taking? Authorizing Provider [id number] 28-800 mg-mcg tablet Take 1 tablet [...] continue with routine care in your office [facility], the CDC, and other organizations representing maternal and public health professionals recommend that , , and lactating people and those considering receive the COVID-19 vaccination. Vaccination is the best method to reduce maternal and complications of SARS-CoV-2 infection. This document was created with [employer] technology. Though I make every effort to review the dictation as it is transcribed, on occasion the spoken word can be misinterpreted by the technology leading to inappropriate words, phrases, or sentences. This note is addressed to the requesting provider as a consultation for clinical guidance. Specific medical abbreviations are occasionally used and those are generally approved by the [place]?Board of?Obstetrics and?Gynecology?as well as?Steve palmer abbreviations. The above plan of care was based solely on the diagnoses for which a consultation was requested. ?More frequent testing may be indicated based on her other medical/obstetrical conditions. The management of other or medical conditions is beyond the scope of requested consultation and will continue to be followed by the primary conservation technician or primary care provider. Thank you [...] procedures Referring and communicating with other health emergency care attendant (not separately reported) Documenting clinical information in [...] yes Have you been seen here at [facility] in a previous ? no Recent ER visits or hospitalizations? no Bring blood sugar log or meter with you today? (Please bring them with you for every visit at [facility]) n/a Flu vaccine (Apr-August)? no Any concerns that you would like me to mention to the provider today? no documented in this encounter [facility] [employer] 04-03-2024 History of Present illness Narrative Reason [...] nursing note reviewed. Exam conducted with a black powder glazing operator present. Vitals: Estimated body mass index [...] Luis Wilkes DO documented in this encounter [facility] 03-05-2024 History of Present illness Narrative Reason [...] nursing note reviewed. Exam conducted with a black powder glazing operator present. Vitals: Estimated body mass index [...] obtained without difficulty and patient was given [facility] order to have obtained. Orders Placed This [...] of: ELIANA Candelaria documented in this encounter [facility] 02-06-2024 History of Present illness Narrative Reason [...] nursing note reviewed. Exam conducted with a black powder glazing operator present. Vitals: Estimated body mass index [...] or undercooked meat, and stay away from formerly [facility]. Patient has been consulted regarding any further do's and don'ts of . Patient voiced understanding and all questions and concerns were answered. Orders Placed This Encounter Procedures POCT urinalysis dipstick manually resulted Follow Up: Patient is to return in 4 weeks for routine OB appointment. Documented by Pooja Mendez LPN on behalf of: Jorge Luis Wilkes DO documented in this encounter [facility] Evaluation note Diagnosis 21 weeks gestation [...] weeks gestation of documented in [facility] encounter [facility]* Diagnosis 26 weeks gestation of [...] HealthcareEvaluation note* Diagnosis Third trimester state, incidental 37 weeks gestation of documented [facility]* Diagnosis Third trimester state, incidental 38 weeks gestation of Folliculitis Other specified disease of hair and hair follicles documented in this encounter [facility] HealthcareInstructionsNot on filedocumented in this encounterPro[facility]ica [facility] SystemInstructionsNot on filedocumented in this encounterProMedine Health System Summary Purpose Family History No [...] and content) DATE CREATED AUTHOR 06/06/2021 [facility] DATE CREATED AUTHOR AUTHOR'S ORGANIZ ATION [facility]2022 [facility] DATE CREATED AUTHOR AUTHOR'S ORGANIZ ATION [facility]/17/2024 [facility] DATE CREATED AUTHOR AUTHOR'S ORGANIZ ATION 05/17/2024 [facility] DATE CREATED AUTHOR AUTHOR'S ORGANIZ ATION 08/03/2024 [facility] Care Teams (unrecognized sec tion and content) Seaman 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 Specialty Start Date End Date Tamir Fuentes MD [address] [place] [address] PCP - General Family Medicine 10/12/23 Merlene Choe MD [address] [place] [id number] Referring Physician Internal Medicine 10/12/23 Seaman 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 Specialty Start Date End Date Tamir Fuentes MD [address] [place] [address] PCP - General Family Medicine 10/12/23 Merlene Choe MD [address] [place] [address] Referring Physician Internal Medicine 10/12/23 Seaman 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 Specialty Start Date End Date Tamir Fuentes MD [address] [place], [place] [id number] PCP - General Family Medicine 10/12/23 Bibiana Alcantara PA [address] [place] [address] [place] [address] PCP - Medical [employer] 06/20/17 06/19/99 Merlene Choe MD [address] [place] [address] Referring Physician Internal Medicine 10/12/23 Seaman 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 Specialty Start Date End Date Tamir Fuentes MD [address] [place] [address] PCP - General Family Medicine 10/12/23 Bibiana Alcantara PA [address] [place] [address] [place] [address] PCP - Medical [employer] 06/20/17 06/19/99 Merlene Choe MD [address] [place] [address] Referring Physician Internal Medicine 10/12/23 Seaman 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 Specialty Start Date End Date Tamir Fuentes MD [address] [place] [address] PCP - General Family Medicine 10/12/23 Bibiana Alcantara PA [address] [place] [address] [place] [address] PCP - Medical [employer] 06/20/17 06/19/99 Merlene Choe MD [address] [place] [address] Referring Physician Internal Medicine 10/12/23 Seaman 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 Specialty Start Date End Date Tamir Fuentes MD [address] [place] [address] PCP - General Family Medicine 10/12/23 Bibiana Alcantara PA [address] [place] [address] [place] [address] PCP - Medical [employer] 06/20/17 06/19/99 Merlene Choe MD [address] [place] [address] Referring Physician Internal Medicine 10/12/23 Seaman 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 Specialty Start Date End Date Tamir Fuentes MD [address] [place] [address] PCP - General Family Medicine 10/12/23 Merlene Choe MD [address] [place] [address] Referring Physician Internal Medicine 10/12/23 Seaman 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 Specialty Start Date End Date Tamir Fuentes MD [address] [place] [address] PCP - General Family Medicine 10/12/23 Merlene Choe MD [address] [place] [address] Referring Physician Internal Medicine 10/12/23 Seaman 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 Specialty Start Date End Date Tamir Fuentes MD [address] [place] [address] PCP - General Family Medicine 10/12/23 Bibiana Alcantara PA [facility] [place] [place], [facility] PCP - Medical [employer] 06/20/17 06/19/99 Merlene Choe MD [address] [place] [address] Referring Physician Internal Medicine 10/12/23 Seaman 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 Specialty Start Date End Date Tamir Fuentes MD [address], [facility] PCP - General Family Medicine 10/12/23 Bibiana Alcantara PA [facility] [place] [address] PCP - Medical [employer] 06/20/17 06/19/99 Merlene Choe MD [address] [place] [address] Referring Physician Internal Medicine 10/12/23 Seaman 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 Specialty Start Date End Date Tamir Fuentes MD [address] [place] [address] PCP - General Family Medicine 10/12/23 Bibiana Alcantara PA [address] [place] [address] PCP - Medical [employer] 06/20/17 06/19/99 Merlene Choe MD [address] [place] [address] Referring Physician Internal Medicine 10/12/23 Seaman 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 Specialty Start Date End Date Tamir Fuentes MD [address] [place] [place] [id number] PCP - General Family Medicine 10/12/23 Bibiana Alcantara PA [address] [place], [facility] PCP - Medical [employer] 06/20/17 06/19/99 Merlene Choe MD [address] [place] [phone] Referring Physician Internal Medicine 10/12/23 Seaman 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 Specialty Start Date End Date Tamir Fuentes MD [address] [place] [place] [address] PCP - General Family Medicine 10/12/23 Bibiana Alcantara PA [address] [place] [address] PCP - Medical [employer] 06/20/17 06/19/99 Merlene Choe MD [address] [place] [address] Referring Physician Internal Medicine 10/12/23 Seaman 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 Specialty Start Date End Date Tamir Fuentes MD [address] [place], [place] [id number] PCP - General Family Medicine 10/12/23 Bibiana Alcantara PA [address] [place] [address] [place] [address] PCP - [employer] 06/20/17 06/19/99 Merlene Choe MD [address] [place] [phone] Referring Physician Internal Medicine 10/12/23 Reason for [...] BE BASED ON THE PRIMARY CLINICAL RECORDS. [facility] [employer] provides no warranty or guarantee of the accuracy or completeness of information in this document.
[2024-08-06 21:12] VITALS: BP 131/81; PULSE 96
[2024-08-06 21:21] LABS: Bilirubin Urine NEGATIVE (NEGATIVE); Blood Urine NEGATIVE (NEGATIVE); Clarity Urine CLEAR (CLEAR); Color Urine LT. YELLOW (YELLOW); Glucose Urine UA NEGATIVE (NEGATIVE); Ketones Urine NEGATIVE (NEGATIVE); Leukocyte Esterase Urine NEGATIVE (NEGATIVE); Nitrite Urine NEGATIVE (NEGATIVE); Protein Urine NEGATIVE (NEG/TRACE); Specific Gravity Urine <=1.005 (1.005-1.025); Urobilinogen Urine 0.2 EU/dL (0.2-1.0)
[2024-08-06 21:28] LABS: Urine Microscopic Indicated NO
== END 2024-08-07 | disposition home or self-care (01) ==
LOC: FBC 20:48
PROVIDERS: Admitting Provider Obstetrics & Gynecology; Visit Provider Obstetrics & Gynecology
DX: O47.9 False labor, unspecified (principal); Z3A.00 Weeks of gestation of pregnancy not specified
CPT/HCPCS: 81003; G0378; G0379

== ENCOUNTER 2024-08-08 18:08 | Inpatient (IN) | payer OTHER, SELFPAY ==
--- OUTSIDE RECORDS SUMMARY | 2024-08-08 18:16 | XMS_ITS | CCD ---
Author Organization [facility] Care Team Providers Care Hat Binder Name Role Phone HARSHAL, DR STEVENS Attending [...] DR STEVENS Admitting Unavailable Дмитрий OLIVARES, Merlene A Unavailable Tamir Fuentes MD Primary Care Provider KATRIN, JORGE LUIS R Referring Unavailable MOUSSA, [...] DOLCE, EMILY Grimaldo Attending Unavailable DOLCE, EMILY Dillan Attending Unavailable KATRIN, JORGE LUIS Attending Unavailable QUINTON, BIBIANA Attending Unavailable KATRIN, JORGE LUIS Attending Unavailable QUINTON, BIBIANA Attending Unavailable KATRIN, JORGE LUIS Attending Unavailable QUINTON, BIBIANA Attending Unavailable KATRIN, JORGE LUIS Attending Unavailable Unavailable Primary Care Provider Unavailabl e Allergies Allergy Classification Reported Allergen(s) Allergy Type Date of Onset Reaction(s) Facility (1 source) Penicillin Drug Allergy [facility] Repository (20 sources) Penicillin G Drug Allergy 4 [facility] Work Phone: (20 sources) Penicillins; Translations: [PENICILLINS] Drug Allergy 4 [facility] (2 sources) Penicillins Propensity to adverse reactions to drug 4 [facility] Medications Current Medications Medication Drug Class(es) [...] or chew.. 30 capsule 06/27/2024 06/27/2025 Active [id number] fumarate-FA 28-800 mg-mcg tablet (2 sources) take 1 tablet by mouth in the morning [id number]-[id number] fumarate-FA 28-800 mg-mcg tablet Take 1 tablet [...] Documented Date Episodic/Chronic Administrative/social admission (2 sources) Encounter for examination and observation for unspecified reason; Translations: [Patient encounter status] Onset: 04-16-2024 04-16-2024 Episodic Diabetes mellitus without complication (6 sources) Hyperglycemia, unspecified; Translations: [Abnormal glucose tolerance test] Onset: 2021 Episodic Hemorrhage during ; abruptio placenta; placenta previa (4 sources) Low lying placenta NOS or without hemorrhage, unspecified trimester; Translations: [Low lying placenta] Onset: 04-16-2024 04-16-2024 Episodic Immunizations and screening for infectious disease (3 sources) Contact with and (suspected) exposure to infections with a predominantly sexual mode of transmission; Translations: [Exposure to sexually transmissible disorder] Onset: 06-28-2021 03-05-2024 Episodic Menstrual disorders (4 sources) Irregular menstruation, unspecified; Translations: [IRREGULAR MENSTRUATION UNSPECIFIED] Onset: 06-23-2021 Chronic Other complications of (2 sources) Heartburn; Translations: [...] 04-03-2024 Episodic Residual codes; unclassified (1 source) 23 [...] LAC DUR DELIV] Onset: 01-12-2022 Episodic Other complications of ; puerperium affecting management of mother (4 sources) heart echogenicity on obstetric ultrasound scan; Translations: [ cardiac echogenic focus, antepartum] Onset: 04-11-2024 04-11-2024 Episodic Residual codes; unclassified (1 source) 39 weeks gestation of ; Translations: [39 WEEKS GESTATION OF ] Onset: 01-12-2022 Episodic Residual codes; unclassified (1 source) FH: Congenital heart disease; Translations: [Family history of other congenital malformations, deformations and chromosomal abnormalities] 04-16-2024 Episodic Residual codes; unclassified (1 source) Gestation period, 23 weeks; Translations: [23 weeks gestation of ] 04-16-2024 Episodic NEGATED: Highlighted row has been ruled out!Unclassified (20 sources) No known active problems 12-07-2023 Results Test Name Value Interpretation Reference Range Facility Urinalysis macro (dipstick) panel (U)on 07-24-2024 Bilirubin, UA Negative Negative - 4(70) +++ mg/dL [facility] Blood, UA Positive Negative - 50 Grey/mcL [facility] Clarity, UA Cloudy [facility] Color, UA Yellow [facility] Glucose, UA Negative Negative - 1999(110) ++++ mg/dL [facility] Interpretation and review of laboratory results Abnormal [facility] Ketones, UA Negative Negative - 160(16) ++++ mg/dL [facility] Leukocytes, UA Positive Negative - 500+++ Juan Alberto/mcL [facility] Nitrite, UA Negative Negative - Positive [facility] pH, UA 7 5 - 9 [facility] Protein, UA Negative Negative - 1999(20) ++++ mg/dL [facility] Spec Grav, UA 1.015 1 - 1.03 [facility] Urobilinogen, UA 0.2 0.2 - 12 mg/dL [facility] ALL MISCELLANEOUS TESTon MISCELLANEOUS TEST COMMENT . [facility] Comment on above: Test Ordered: [id number] Strep Gp B Culture+Rflx Strep Gp B Culture+Rflx Negative CB Reference Range: Negative Centers for Disease Control and Prevention (CDC) and [place] [employer] (ACOG) guidelines [...] resistance to clindamycin is noted. Performed at: [address] [id number] Sweatband Flanger: Alex Montes De Oca PhD, Phone: [phone] GROUP B STREP [id number] Group B Streptococcus Colonization Detection Culture With Re [facility] Urinalysis macro (dipstick) panel (U)on 07-18-2024 Bilirubin, UA Negative Negative - 4(70) +++ mg/dL [facility] Blood, UA Negative Negative - 50 Grey/mcL [facility] Clarity, UA Clear [facility] Color, UA Yellow [facility] Glucose, UA Negative Negative - 1999(110) ++++ mg/dL [facility] Interpretation and review of laboratory results Abnormal [facility] Ketones, UA Positive Negative - 160(16) ++++ mg/dL [facility] Comment on above: trace Leukocytes, UA Positive Negative - 500+++ Juan Alberto/mcL [facility] Comment on above: small Nitrite, UA Negative Negative - Positive [facility] pH, UA 7 5 - 9 [facility] Protein, UA Negative Negative - 1999(20) ++++ mg/dL [facility] Spec Grav, UA 1.015 1 - 1.03 [facility] Urobilinogen, UA 1.0 0.2 - 12 mg/dL [facility] TBH UA (CLEAN/CATCH) LENO SEWER/BERTRAND RO IF IND.on 07-16-2024 BILIRUBIN URINE Negative NEGATIVE [facility] BLOOD URINE Negative NEGATIVE [facility] Clarity (U) CLEAR CLEAR [facility] Color (U) LT. YELLOW YELLOW [facility] GLUCOSE URINE UA Negative NEGATIVE mg/dL [facility] Interpretation and review of laboratory results Abnormal [facility] Ketones Ql (U) Negative NEGATIVE mg/dL [facility] Leukocyte esterase Test strip Ql (U) Negative NEGATIVE [facility] NITRITE URINE Negative NEGATIVE [facility] pH (U) 6.5 [pH] 5.0 - 9.0 [facility] PROTEIN URINE Negative NEG/TRACE mg/dL [facility] SPECIFIC GRAVITY URINE <=1.005 Abnormal 1.005 - 1.025 [facility] URINE MICROSCOPIC INDICATED NO [facility] UROBILINOGEN URINE 0.2 EU/dL 0.2 - 1.0 EU/dL [facility]stick) panel (U)on 07-11-2024 Bilirubin, UA Negative Negative - 4(70) +++ mg/dL [facility] Blood, UA Negative Negative - 50 Grey/mcL [facility] Clarity, UA Clear [facility] Color, UA Yellow [facility] Glucose, UA Negative Negative - 1999(110) ++++ mg/dL [facility] Interpretation and review of laboratory results Abnormal [facility] Ketones, UA Positive Negative - 160(16) ++++ mg/dL [facility] Leukocytes, UA Negative Negative - 500+++ Juan Alberto/mcL [facility] Nitrite, UA Negative Negative - Positive [facility] pH, UA 6 5 - 9 [facility] Protein, UA Negative Negative - 1999(20) ++++ mg/dL [facility] Spec Grav, UA 1.03 1 - 1.03 [facility] Urobilinogen, UA 0.2 0.2 - 12 mg/dL [facility] Urinalysis macro (dipstick) panel (U)on 06-27-2024 Bilirubin, UA Negative Negative - 4(70) +++ mg/dL [facility] Blood, UA Negative Negative - 50 Grey/mcL [facility] Clarity, UA Clear [facility] Color, UA Yellow [facility] Glucose, UA Negative Negative - 1999(110) ++++ mg/dL [facility] Interpretation and review of laboratory results Abnormal [facility] Ketones, UA Positive Negative - 160(16) ++++ mg/dL [facility] Comment on above: 15 Leukocytes, UA Negative Negative - 500+++ Juan Alberto/mcL [facility] Nitrite, UA Negative Negative - Positive [facility] pH, UA 6.5 5 - 9 [facility] Protein, UA Trace Negative - 1999(20) ++++ mg/dL [facility] Spec Grav, UA 1.02 1 - 1.03 [facility] Urobilinogen, UA 2.0 0.2 - 12 mg/dL [facility] Urinalysis macro (dipstick) panel (U)on 06-06-2024 Bilirubin, UA Negative Negative - 4(70) +++ mg/dL [facility] Blood, UA Negative Negative - 50 Grey/mcL [facility] Clarity, UA Clear [facility] Color, UA Yellow [facility] Glucose, UA Negative Negative - 1999(110) ++++ mg/dL [facility] Interpretation and review of laboratory results Abnormal [facility] Ketones, UA Negative Negative - 160(16) ++++ mg/dL [facility] Leukocytes, UA Trace Negative - 500+++ Juan Alberto/mcL [facility] Nitrite, UA Negative Negative - Positive [facility] pH, UA 7 5 - 9 [facility] Protein, UA Negative Negative - 1999(20) ++++ mg/dL [facility] Spec Grav, UA 1.015 1 - 1.03 [facility] Urobilinogen, UA 0.2 0.2 - 12 mg/dL [facility] Urinalysis macro (dipstick) panel (U)on 05-21-2024 Bilirubin, UA Negative Negative - 4(70) +++ mg/dL [facility] Blood, UA Negative Negative - 50 Grey/mcL [facility] Clarity, UA Clear [facility] Color, UA Yellow [facility] Glucose, UA Negative Negative - 1999(110) ++++ mg/dL [facility] Interpretation and review of laboratory results Normal [facility] Ketones, UA Negative Negative - 160(16) ++++ mg/dL [facility] Leukocytes, UA Negative Negative - 500+++ Juan Alberto/mcL [facility] Nitrite, UA Negative Negative - Positive [facility] pH, UA 6 5 - 9 [facility] Protein, UA Negative Negative - 1999(20) ++++ mg/dL [facility] Spec Grav, UA 1.025 1 - 1.03 [facility] Urobilinogen, UA 0.2 0.2 - 12 mg/dL [facility] Urinalysis macro (dipstick) panel (U)on 05-07-2024 Bilirubin, UA Negative Negative - 4(70) +++ mg/dL [facility] Blood, UA Negative Negative - 50 Grey/mcL [facility] Clarity, UA Clear [facility] Color, UA Yellow [facility] Glucose, UA Negative Negative - 1999(110) ++++ mg/dL [facility] Interpretation and review of laboratory results Normal [facility] Ketones, UA Negative Negative - 160(16) ++++ mg/dL [facility] Leukocytes, UA Negative Negative - 500+++ Juan Alberto/mcL [facility] Nitrite, UA Negative Negative - Positive [facility] pH, UA 5 5 - 9 [facility] Protein, UA Negative Negative - 1999(20) ++++ mg/dL [facility] Spec Grav, UA 1.02 1 - 1.03 [facility] Urobilinogen, UA 0.2 0.2 - 12 mg/dL [facility] GLUCOSE TOLERANCE 3 HOURon 1 07-05-2023 GLUCOSE TOLERANCE 3 HOUR High mg/dL [facility] Comment on above: GLU FAST 86 (<95) Co l: 05/05/24 0808 GLU 1HR 181H (<180) Col: 05/05/24 0912 GLU 2HR 135 (<155) Col: 05/05/24 1012 GLU 3HR 125 (<140) Col: 05/05/24 1112 Interpretation and review of laboratory results Abnormal [facility] ALL CBC WITH AUTO DIFFon BASOPHILS ABSOLUTE AUTO 0.1 [facility] Basophils/100 WBC (Bld) 0.5 % 0.2 - 2.0 % [facility] Eosinophils/100 WBC (Bld) 1.6 % 0.9 - 7.0 % [facility] Erythrocyte distribution width (RBC) [Ratio] 12.9 % 11.0 - 15.0 % [facility] Hematocrit (Bld) [Volume fraction] 37.9 % 36.0 - 48.0 % [facility] Hemoglobin (Bld) [Mass/Vol] 12.5 g/dL 12.0 - 16.0 g/dL [facility] IMMATURE GRANULOCYTES ABS AUTO 0.23 High [facility] Immature granulocytes/100 WBC (Bld) 1.8 % High 0.0 - 0.5 % [facility] Interpretation and review of laboratory results Abnormal [facility] LYMPHOCYTES ABSOLUTE AUTO 2.1 [facility] Lymphocytes/100 WBC (Bld) 17 % Low 20.5 - 60.0 % [facility] MCH (RBC) [Entitic mass] 31.5 pg 26.7 - 34.0 pg [facility] MCHC (RBC) [Mass/Vol] 33 g/dL 29.9 - 35.2 g/dL [facility] MCV (RBC) [Entitic vol] 95.5 fL 81.0 - 99.0 fL [facility] MONOCYTES ABSOLUTE AUTO 0.9 High [facility] Monocytes/100 WBC (Bld) 6.8 % 1.7 - 12.0 % [facility] NEUTROPHILS ABSOLUTE AUTO 9.1 High [facility] Neutrophils/100 WBC (Bld) 72.3 % 43.0 - 75.0 % [facility] Platelet mean volume (Bld) [Entitic vol] 9.5 fL 9.5 - 13.5 fL [facility] TBH EO # 0.2 [facility] TB PLT 244 [facility] RBC 3.97 Low [facility] WBC 12.6 High [facility] Urinalysis macro (dipstick) panel (U)on 04-03-2024 Bilirubin, UA Negative Negative - 4(70) +++ mg/dL [facility] Blood, UA Negative Negative - 50 Grey/mcL [facility] Clarity, UA Clear [facility] Color, UA Yellow [facility] Glucose, UA Negative Negative - 1999(110) ++++ mg/dL [facility] Interpretation and review of laboratory results Normal [facility] Ketones, UA Negative Negative - 160(16) ++++ mg/dL [facility] Leukocytes, UA Negative Negative - 500+++ Juan Alberto/mcL [facility] Nitrite, UA Negative Negative - Positive [facility] pH, UA 6.5 5 - 9 [facility] Protein, UA Negative Negative - 1999(20) ++++ mg/dL [facility] Spec Grav, UA 1.02 1 - 1.03 [facility] Urobilinogen, UA 0.2 0.2 - 12 mg/dL [facility] AFP, SERUM, OPEN SPINA BIFID Aon 03-31-2024 AFP MOM 1.42 . [facility] AFP VALUE 88.7 ng/mL . [facility] COMMENT: Comment . [facility] Comment on above: Radha Viveros , Ph.D., [facility] Director References: Available Upon Request. Multiples Of Median Cutoffs For AFP Elevations Ricardo 2.5 Black 2.8 IDD 2.0 Twins 4.5 Abbreviation Definitions IDD - Insulin Dep Diabetes OSBR - Open Spina Bifida Risk For further inquiries contact [facility] at [phone]. This test was developed and its performance characteristics determined by [employer]. It has not been cleared or approved by the Food and Drug Administration. Performed at: [facility] [address], [place] [id number] Sweatband Flanger: Priya Jung [facility], Phone: [phone] GEST. AGE ON COLLECTION DATE 20.4 . weeks [facility] GESTAT. AGE BASED ON As provided . [facility] Comment on above: Recalculations are n ot recommended when gestational dating by LMP and ultrasound are within 10 days. INSULIN DEP DIABETES No . [facility] INTERPRETATION Comment . [facility] Comment on above: Interpretation: Scre en [...] Customer Services to discuss available options. The [employer] [employer] recommends amniocentesis be offered to women age 35 and older. [age] [facility] MULTIPLE GESTATION No . [facility] OSBR RISK 1 IN 3404 . [facility] RACE . [facility] RESULTS Report . [facility] TEST RESULTS: Negative . [facility] WEIGHT 137 . lbs [facility] N N [id number] 1 17 N 1 Y 137 N N N N N White/ [facility] IGP,APTIMA HPV,AGE GDLNon AGE GDLN ACOG TESTING Note . [facility] Comment on above: TESTS RESULT FLAG UN ITS REF RANGE LAB Clinician Provided Cytology Information Source.............Cervix Other.............. No. of containers..01 ThinPrep Vial Age Algo ACOG Martha... 30-65 FLAG LEGEND: L-Low Normal,H-High Normal,LL-Alert Low,HH-Alert High <-Panic Low,>-Panic High,A-Abnormal,AA-Critical Abnormal Performed at: 01 =[address] [place] [address] Deysi Tidwell MD, HPV APTIMA Negative Negative [facility] Comment on above: This nucleic acid am plification test detects fourteen high- risk HPV types (16,18,31,33,35,39,45,51,52,56,58,59,66,68) without differentiation. Performed at: =[address] [id number] Sweatband Flanger: Deysi Tidwell MD, Phone: [phone] Performed at: [address] [id number] Sweatband Flanger: Deysi Tidwell MD, Phone: [phone] IGP, APTIMA HPV, RFX 16/18,45 Note . [facility] Comment on above: TESTS RESULT FLAG UN ITS REF RANGE LAB DIAGNOSIS: 02 NEGATIVE FOR INTRAEPITHELIAL LESION OR MALIGNANCY. Specimen adequacy: 02 Satisfactory for evaluation. Endocervical and/or squamous metaplastic cells (endocervical component) are present. Performed by: 02 Alina Muniz, Decorating Inspector (ASCP) . 02 Note: Note 02 The [...] <-Panic Low,>-Panic High,A-Abnormal,AA-Critical Abnormal Performed at: [address] [id number] Deysi Tidwell MD, SPATULA-ALONE CERVIX [facility] URETHRITIS/DISCHARGE PLUS VA GINITIS (HTRX)on 03-07-2024 ATOPOBIUM VAGINAE 29.123 Abnormal [facility] ATOPOBIUM VAGINAE Detected Abnormal [facility] BVAB 2,3 (BACTERIAL VAGINOSIS ASSOCIATED BACTERIA 2, 3); MOBILUNCUS SPP 0.000 [facility] BVAB 2,3 (BACTERIAL VAGINOSIS ASSOCIATED BACTERIA 2, 3); MOBILUNCUS SPP Not detected [facility] TAMIR ALBICANS, PARAPSILOSIS, TROPICALIS 0.000 [facility] TAMIR ALBICANS, PARAPSILOSIS, TROPICALIS Not detected [facility] TAMIR GLABRATA 0.000 [facility] TAMIR GLABRATA Not detected [facility] TAMIR KRUSEI 0.000 [facility] TAMIR KRUSEI Not detected [facility] CHLAMYDIA TRACHOMATIS 0.000 [facility] CHLAMYDIA TRACHOMATIS Not detected [facility] GARDNERELLA VAGINALIS 0.000 [facility] GARDNERELLA VAGINALIS Not detected [facility] Interpretation and review of laboratory results Abnormal [facility] MEGASPHAERA (TYPES 1, 2) 0.000 [facility] MEGASPHAERA (TYPES 1, 2) Not detected [facility] MYCOPLASMA GENITALIUM 0.000 [facility] MYCOPLASMA GENITALIUM Not detected [facility] NEISSERIA GONORRHOEAE 0.000 [facility] NEISSERIA GONORRHOEAE Not detected [facility] TRICHOMONAS VAGINALIS 0.000 [facility] TRICHOMONAS VAGINALIS Not detected [facility] Cytology Cervical or vaginal smear or scraping studyon 03-05-2024 [facility] Urinalysis macro (dipstick) panel (U)on 03-05-2024 Bilirubin, UA Negative Negative - 4(70) +++ mg/dL [facility] Blood, UA Negative Negative - 50 Grey/mcL [facility] Clarity, UA Clear [facility] Color, UA Yellow [facility] Glucose, UA Negative Negative - 1999(110) ++++ mg/dL [facility] Interpretation and review of laboratory results Normal [facility] Ketones, UA Negative Negative - 160(16) ++++ mg/dL [facility] Leukocytes, UA Negative Negative - 500+++ Juan Alberto/mcL [facility] Nitrite, UA Negative Negative - Positive [facility] pH, UA 6.5 5 - 9 [facility] Protein, UA Negative Negative - 1999(20) ++++ mg/dL [facility] Spec Grav, UA 1.020 1 - 1.03 [facility] Urobilinogen, UA 1.0 0.2 - 12 mg/dL [facility] Urinalysis macro (dipstick) panel (U)on 02-06-2024 Bilirubin, UA Negative Negative - 4(70) +++ mg/dL [facility] Blood, UA Negative Negative - 50 Grey/mcL [facility] Clarity, UA Clear [facility] Color, UA Yellow [facility] Glucose, UA Negative Negative - 1999(110) ++++ mg/dL [facility] Interpretation and review of laboratory results Normal [facility] Ketones, UA Negative Negative - 160(16) ++++ mg/dL [facility] Leukocytes, UA Negative Negative - 500+++ Juan Alberto/mcL [facility] Nitrite, UA Negative Negative - Positive [facility] pH, UA 7.0 5 - 9 [facility] Protein, UA Negative Negative - 1999(20) ++++ mg/dL [facility] Spec Grav, UA 1.015 1 - 1.03 [facility] Urobilinogen, UA 0.2 0.2 - 12 mg/dL [facility] CBC without diffon Hematocrit (Bld) [Volume fraction] 40.3 % [facility] Hemoglobin (Bld) [Mass/Vol] 13.3 g/dL [facility] Platelets (Bld) [#/Vol] 329 10*3/uL [facility] Rbc Mcv (Fl) By Automated Count 93.3 [facility] Chlamydia/GC by PCR Mariaa Sw abon 01-27-2024 Chlamydia Dna(Pcr) Not detected [facility] Gonorrhoeae Dna(Pcr) Not detected Pr [facility] HIV 1&2 AB/AG Screen (P24 AG )on 01-27-2024 HIV 1&2 AB/AG Non-Reactive [facility] Hepatitis B surface antigeno n 01-27-2024 Hepatitis B Surface Antigen Negative [facility] Hepatitis C(HCV) Ab w/ Refle x to PCRon 01-27-2024 HCV Ab Ql (S) non reacitve [facility] No Panel Informationon 01-26 [facility] Rubella IGG immune statuson 01-27-2024 Rubella immune IgG 9.62 [facility] Syphilis Total(Unknown Syphi lis Status)on 01-27-2024 Syphilis Non-Reactive [facility] Type and screenon 01-27-2024 Abo/Rh(D) Positive [facility] LIPID PROFILEon 03-29-2022 CHOL-HDL RATIO NORM SEE BELOW Normal [facility] Comment on above: Result Comment: 3.3 - 4.4 LOW RISK 4.4 - 7.1 AVERAGE RISK 7.1 - 11.0 MODERATE RISK >11.0 HIGH RISK Performed By: #### L IPID #### [facility] [address] [address] [address] Parth Lucero Cholesterol [Mass/Vol] 197 mg/dL Normal <=200 [facility] Comment on above: Performed By: #### L IPID #### [facility] [address] [address] [address] Parth Lucero Cholesterol in HDL [Mass/Vol] 66 mg/dL Critically high 40-60 [facility] Comment on above: Performed By: #### L IPID #### [facility] [address] [address] [address] Parth Lucero Cholesterol in LDL [Mass/Vol] 120.0 mg/dL Normal [facility] Comment on above: Performed By: #### L IPID #### [facility] [address] [address] [address] Parth Lucero Cholesterol.total/Ch olesterol in HDL [Mass ratio] 3.0 {ratio} Normal [facility] Comment on above: Performed By: #### L IPID #### [facility] [address] [address] [address] Parth Lucero HDL NORMAL > or = 60 mg/dl - LO W CARDIOVASCULAR RISK <40 mg/dl - HIGH CARDIOVASCULAR RISK Normal [facility] Comment on above: Performed By: #### L IPID #### [facility] [address] [address] [address] Parth Lucero LDL CALC NORMAL SEE BELOW Normal [facility] Comment on above: Result Comment: <100 mg/dl OPTIMAL 100 - 129 mg/dl NEAR OR ABOVE OPTIMAL 130 - 159 mg/dl BORDERLINE HIGH 160 - 189 mg/dl HIGH >190 mg/dl VERY HIGH Performed By: #### L IPID #### [facility] [address] [place] [address] Dr. Parth Lucero Triglyceride [Mass/Vol] 55 mg/dL Normal <=150 [facility] Comment on above: Performed By: #### L IPID #### [facility] [address] [place] [address] Dr. Parth Lucero VLDL CALC 11.0 mg/dL Normal [facility] Comment on above: Performed By: #### L IPID #### [facility] [address] [address] [address] Parth Lucero CBC AUTO DIFFon 01-08-2022 BASO # 0.0 103/ul Normal 0.0-0.1 [facility] Comment on above: Performed By: #### [id number] #### [facility] [address] [address] [address] Parth Lucero Basophils/100 WBC (Bld) 0.3 % Normal 0.2-2.0 [facility] Comment on above: Performed By: #### 4 [id number] #### [facility] [address] [place] [address] Dr. Parth Lucero EO # 0.1 103/ul Normal 0.0-0.7 [facility] Comment on above: Performed By: #### 4 [id number] #### [facility] [address] [place] [address] Dr. Parth Lucero Eosinophils/100 WBC (Bld) 0.4 % Critically low 0.9-7.0 [facility] Comment on above: Performed By: #### 4 [id number] #### [facility] [address] [place] [address] Dr. Parth Lucero Erythrocyte distribution width (RBC) [Ratio] 13.4 % Normal 11.0-15.0 [facility] Comment on above: Performed By: #### 4 [id number] #### [facility] [address] [place] [address] Dr. Parth Lucero Hematocrit (Bld) [Volume fraction] 36.0 % Normal 36.0-48.0 [facility] Comment on above: Performed By: #### 4 [id number] #### [facility] [address] [place] [address] Dr. Parth Lucero Hemoglobin (Bld) [Mass/Vol] 12.1 g/dL Normal 12.0-16.0 [facility] Comment on above: Performed By: #### 4 [id number] #### [facility] [address] [place] [address] Dr. Parth Lucero IG # 0.10 10e3/ul Critically high 0.00-0.03 [facility] Comment on above: Performed By: #### 4 [id number] #### [facility] [address] [place] [address] Dr. Parth Lucero IG % 0.7 % Critically high 0.0-0.5 [facility] Comment on above: Performed By: #### 4 [id number] #### [facility] [address] [place] [address] Dr. Parth Lucero LYMPH # 2.1 103/ul Normal 1.2-3.8 [facility] Comment on above: Performed By: #### 4 [id number] #### [facility] [address] [place] [address] Dr. Parth Lucero Lymphocytes/100 WBC (Bld) 14.0 % Critically low 20.5-60.0 [facility] Comment on above: Performed By: #### 4 [id number] #### [facility] [address] [place] [address] Dr. Parth Lucero MANUAL DIFF REQ NO Normal [facility] Comment on above: Performed By: #### [id number] #### [facility] [address] [place] [address] Dr. Parth Lucero MCH (RBC) [Entitic mass] 31.0 pg Normal 26.7-34.0 [facility] Comment on above: Performed By: #### 4 [id number] #### [facility] [address] [place] [address] Dr. Parth Lucero MCHC (RBC) [Mass/Vol] 33.6 g/dL Normal 29.9-35.2 [facility] Comment on above: Performed By: #### 4 [id number] #### [facility] [address] [place] [address] Dr. Parth Lucero MCV (RBC) [Entitic vol] 92.3 fL Normal 81.0-99.0 [facility] Comment on above: Performed By: #### 4 [id number] #### [facility] [address] [place] [address] Dr. Parth Lucero MONO # 1.2 103/ul Critically high 0.3-0.8 [facility] Comment on above: Performed By: #### 4 [id number] #### [facility] [address] [place] [address] Dr. Parth Lucero Monocytes/100 WBC (Bld) 7.7 % Normal 1.7-12.0 [facility] Comment on above: Performed By: #### 4 [id number] #### [facility] [address] [place] [address] Dr. Parth Lucero NEUT # 11.7 103/ul Critically high 1.4-6.5 [facility] Comment on above: Performed By: #### 4 [id number] #### [facility] [address] [address] [address] Parth Lucero Neutrophils/100 WBC (Bld) 76.9 % Critically high 43.0-75.0 [facility] Comment on above: Performed By: #### 4 [id number] #### [facility] [address] [address] [address] Parth Lucero Platelet mean volume (Bld) [Entitic vol] 10.0 fL Normal 9.5-13.5 [facility] Comment on above: Performed By: #### 4 [id number] #### [facility] [address] [address] [address] Parth Lucero PLT 231 103/ul Normal 150-450 [facility] Comment on above: Performed By: #### 4 [id number] #### [facility] [address] [place] [address] Dr. Parth Lucero RBC 3.90 106/ul Critically low 4.20-5.40 [facility] Comment on above: Performed By: #### 4 [id number] #### [facility] [address] [address] [address] Parth Lucero WBC 15.2 103/ul Critically high 4.0-11.0 [facility] Comment on above: Performed By: #### 4 [id number] #### [facility] [address] [place] [address] Dr. Parth Lucero CBC AUTO DIFFon 01-07-2022 BASO # 0.0 103/ul Normal 0.0-0.1 [facility] Comment on above: Performed By: #### C BC #### [facility] [address] [address] [address] Parth Lucero Basophils/100 WBC (Bld) 0.4 % Normal 0.2-2.0 [facility] Comment on above: Performed By: #### C BC #### [facility] [address] [address] [address] Parth Lucero EO # 0.1 103/ul Normal 0.0-0.7 [facility] Comment on above: Performed By: #### C BC #### [facility] [address] [address] [address] Parth Lucero Eosinophils/100 WBC (Bld) 1.1 % Normal 0.9-7.0 [facility] Comment on above: Performed By: #### C BC #### [facility] [address] [address] [address] Parth Lucero Erythrocyte distribution width (RBC) [Ratio] 13.3 % Normal 11.0-15.0 [facility] Comment on above: Performed By: #### C BC #### [facility] [address] [address] [address] Parth Lucero Hematocrit (Bld) [Volume fraction] 39.2 % Normal 36.0-48.0 [facility] Comment on above: Performed By: #### C BC #### [facility] [address] [place] [address] Dr. Parth Lucero Hemoglobin (Bld) [Mass/Vol] 13.3 g/dL Normal 12.0-16.0 [facility] Comment on above: Performed By: #### C BC #### [facility] [address] [place] [address] Dr. Parth Lucero IG # 0.10 10e3/ul Critically high 0.00-0.03 [facility] Comment on above: Performed By: #### C BC #### [facility] [address] [place] [address] Dr. Parth Lucero IG % 1.0 % Critically high 0.0-0.5 [facility] Comment on above: Performed By: #### C BC #### [facility] [address] [address] [address] Parth Lucero LYMPH # 1.8 103/ul Normal 1.2-3.8 [facility] Comment on above: Performed By: #### C BC #### [facility] [address] [place] [address] Dr. Parth Lucero Lymphocytes/100 WBC (Bld) 18.0 % Critically low 20.5-60.0 [facility] Comment on above: Performed By: #### C BC #### [facility] [address] [place] [address] Dr. Parth Lucero MANUAL DIFF REQ NO Normal [facility] Comment on above: Performed By: #### C BC #### [facility] [address] [place] [address] Dr. Parth Lucero MCH (RBC) [Entitic mass] 31.1 pg Normal 26.7-34.0 [facility] Comment on above: Performed By: #### C BC #### [facility] [address] [place] [address] Dr. Parth Lucero MCHC (RBC) [Mass/Vol] 33.9 g/dL Normal 29.9-35.2 [facility] Comment on above: Performed By: #### C BC #### [facility] [address] [place] [address] Dr. Parth Lucero MCV (RBC) [Entitic vol] 91.8 fL Normal 81.0-99.0 [facility] Comment on above: Performed By: #### C BC #### [facility] [address] [place] [address] Dr. Parth Lucero MONO # 1.1 103/ul Critically high 0.3-0.8 [facility] Comment on above: Performed By: #### C BC #### [facility] [address] [place] [address] Dr. Parth Lucero Monocytes/100 WBC (Bld) 11.3 % Normal 1.7-12.0 [facility] Comment on above: Performed By: #### C BC #### [facility] [address] [place] [address] Dr. Parth Lucero NEUT # 6.9 103/ul Critically high 1.4-6.5 [facility] Comment on above: Performed By: #### C BC #### [facility] [address] [place] [address] Dr. Parth Lucero Neutrophils/100 WBC (Bld) 68.2 % Normal 43.0-75.0 [facility] Comment on above: Performed By: #### C BC #### [facility] [address] [place] [address] Dr. Parth Lucero Platelet mean volume (Bld) [Entitic vol] 10.6 fL Normal 9.5-13.5 [facility] Comment on above: Performed By: #### C BC #### [facility] [address] [place] [address] Dr. Parth Lucero PLT 258 103/ul Normal 150-450 [facility] Comment on above: Performed By: #### C BC #### [facility] [address] [address] [address] Parth Lucero RBC 4.27 106/ul Normal 4.20-5.40 [facility] Comment on above: Performed By: #### C BC #### [facility] [address] [place] [address] Dr. Parth Lucero WBC 10.1 103/ul Normal 4.0-11.0 [facility] Comment on above: Performed By: #### C BC #### [facility] [address] [place] [address] Dr. Parth Lucero [facility] SARS-CoV-2 (COVID-19) RNA RIGOBERTO+probe Ql (Unsp spec) Not detected Normal NOT DETECTED [facility] Comment on above: Result Comment: [...] for this test is supported by the [place] of [employer] and Human Service's declaration that [...] longer be used). Performed By: #### [id number] #### [facility] [address] [place] [address] Dr. Parth Lucero DRUG SCREEN RAPID (URINE)on 01-07-2022 AMP Negative Normal NEGATIVE [facility] Comment on above: Performed By: #### L IPID #### [facility] [address] [place] [address] Dr. Parth Lucero BAR Negative Normal NEGATIVE [facility] Comment on above: Performed By: #### L IPID #### [facility] [address] [place] [address] Dr. Parth Lucero BUP Negative Normal NEGATIVE [facility] Comment on above: Performed By: #### L IPID #### [facility] [address] [place] [address] Dr. Parth Lucero BZO Negative Normal NEGATIVE [facility] Comment on above: Performed By: #### L IPID #### [facility] [address] [place] [address] Dr. Parth Lucero AMINTA Negative Normal NEGATIVE [facility] Comment on above: Performed By: #### L IPID #### [facility] [address] [place] [address] Dr. Parth Lucero CUT-OFFS SEE BELOW Normal [facility] Comment on above: Result Comment: AMP [...] ng/mL Performed By: #### L IPID #### [facility] [address] [place] [address] Dr. Parth Lucero DRUG CUT HEADER DRUG CLASS TEST SYSTEM CUT-OFF CONCENTRATIONS ARE FOLLOWS: Normal [facility] Comment on above: Performed By: #### L IPID #### [facility] [address] [place] [address] Dr. Parth Lucero mAMP Negative Normal NEGATIVE [facility] Comment on above: Performed By: #### L IPID #### [facility] [address] [place] [address] Dr. Parth Lucero MTD Negative Normal NEGATIVE [facility] Comment on above: Performed By: #### L IPID #### [facility] [address] [place] [address] Dr. Parth uLcero OPI Negative Normal NEGATIVE [facility] Comment on above: Performed By: #### L IPID #### [facility] [address] [place] [address] Dr. Parth Lucero OXY Negative Normal NEGATIVE [facility] Comment on above: Performed By: #### L IPID #### [facility] [address] [place] [address] Dr. Parth Lucero PCP Negative Normal NEGATIVE [facility] Comment on above: Performed By: #### L IPID #### [facility] [address] [place] [address] Dr. Parth Lucero PPX Negative Normal NEGATIVE [facility] Comment on above: Performed By: #### L IPID #### [facility] [address] [place] [address] Dr. Parth Lucero TCA Negative Normal NEGATIVE [facility] Comment on above: Performed By: #### L IPID #### [facility] [address] [place] [address] Dr. Parth Lucero THC Negative Normal NEGATIVE [facility] Comment on above: Performed By: #### L IPID #### [facility] [address] [place] [address] Dr. Parth Lucero TYPE AND SCREENon 01-07-2022 TYPE AND SCREEN Negative Normal [facility] Comment on above: Performed By: #### T NS #### [facility] [address] [place] [address] Dr. Parth Lucero GROUP B STREP CULTUREon 11-19 S. agalactiae Ag Ql (Unsp spec) Culture Observations: NEGATIVE FOR GROUP B STREPTOCOCCUS. Normal [facility] Comment on above: Performed By: #### 4 [id number] #### [facility] [address] [address] [address] Parth Lucero GTT 3 HR PREGon 2021 Glucose [Mass/Vol] 93 mg/dL Normal 74-106 [facility] Comment on above: Performed By: #### G TT3P #### [facility] [address] [address] [address] Parth Lucero Glucose [Mass/Vol] 173 mg/dL Normal [facility] Comment on above: Performed By: #### G TT3P #### [facility] [address] [address] [address] Parth Lucero Glucose [Mass/Vol] 149 mg/dL Normal [facility] Comment on above: Performed By: #### G TT3P #### [facility] [address] [address] [address] Parth Lucero Glucose [Mass/Vol] 128 mg/dL Normal [facility] Comment on above: Performed By: #### G TT3P #### [facility] [address] [address] [address] Parth Lucero GLUCOSE - 1HRon 10-09-2021 Glucose [Mass/Vol] 150 mg/dL Critically high 74-106 [facility] Comment on above: Performed By: #### G LU1HR #### [facility] [address] [address] [address] Parth Lucero HEMOGRAM AND PLATELon 2021 Hematocrit (Bld) [Volume fraction] 37.6 % Normal 36.0-48.0 [facility] Comment on above: Performed By: #### H H #### [facility] [address] [place] [address] Dr. Parth Lucero Hemoglobin (Bld) [Mass/Vol] 12.3 g/dL Normal 12.0-16.0 [facility] Comment on above: Performed By: #### H H #### [facility] [address] [address] [address] Parth Lucero MCH (RBC) [Entitic mass] 31.2 pg Normal 26.7-34.0 [facility] Comment on above: Performed By: #### H H #### [facility] [address] [address] [address] Parth Lucero MCHC (RBC) [Mass/Vol] 32.7 g/dL Normal 29.9-35.2 [facility] Comment on above: Performed By: #### H H #### [facility] [address] [place] [address] Dr. Parth Lucero MCV (RBC) [Entitic vol] 95.4 fL Normal 81.0-99.0 [facility] Comment on above: Performed By: #### H H #### [facility] [address] [place] [address] Dr. Parth Lucero PLT 240 103/ul Normal 150-450 [facility] Comment on above: Performed By: #### H H #### [facility] [address] [address] [address] Parth Lucero RBC 3.94 106/ul Critically low 4.20-5.40 [facility] Comment on above: Performed By: #### H H #### [facility] [address] [place] [address] Dr. Parth Lucero WBC 9.7 103/ul Normal 4.0-11.0 [facility] Comment on above: Performed By: #### H H #### [facility] [address] [place] [address] Dr. Parth Lucero PAP ACOG PANEL 2: 21 to 29on 09-02-2021 . . Normal [facility] Comment on above: Performed By: #### 4 [id number] #### [facility] [address] [place] [address] Dr. Parth Lucero Age Gdln ACOG Testing 21-29 Normal [facility] Comment on above: Performed By: #### 4 [id number] #### [facility] [address] [address] [address] Parth Lucero DIAGNOSIS: Comment Normal [facility] Comment on above: Result Comment: NEGA TIVE FOR INTRAEPITHELIAL LESION OR MALIGNANCY. Performed By: #### 4 [id number] #### [facility] [address] [address] [address] Parth Lucero Methodology: Comment Normal [facility] Comment on above: Result Comment: This liquid based ThinPrep(R) pap test was screened with the use of an image guided system. Performed By: #### 4 [id number] #### [facility] [address] [place] [address] Dr. Parth Lucero Note: Comment Normal [facility] Comment on above: Result Comment: The Pap smear is a screening test designed to aid in the detection of premalignant and malignant conditions of the uterine cervix. It is not a diagnostic procedure and should not be used as the sole means of detecting cervical cancer. Both false-positive and false-negative reports do occur. . Performed By: #### 4 [id number] #### [facility] [address] [place] [address] Dr. Parth Lucero Performed by: Comment Normal [facility] Comment on above: Result Comment: Vivian Paris, Decorating Inspector (ASCP) Performed By: #### 4 [id number] #### [facility] [address] [place] [address] Dr. Parth Lucero Reflex Criteria: Comment Normal [facility] Comment on above: Result Comment: The HPV DNA reflex criteria were not met with this specimen result therefore, no HPV testing was performed. . Performed By: #### 4 [id number] #### [facility] [address] [place] [address] Dr. Parth Lucero Specimen adequacy: Comment Normal [facility] Comment on above: Result Comment: Sati sfactory for evaluation. No endocervical component is identified. Performed By: #### 4 [id number] #### [facility] [address] [place] [address] Dr. Parth Lucero US PREG ANATOMY SINGLEon [...] by ultrasound, 56% by expected EDC; FL/AC: [id number] FL/BPD: 0.506154 HC/AC: 1.548225 GESTATIONAL AGE: Age by EDC: 21 weeks 0 days ARMANI by EDC: 01/12/2022 Age by current US: 20 weeks 1 day ARMANI by current US: 01/11/2022 IMPRESSION: Normal anatomy scan *Reference: [facility] Practice Guideline for the performance of Obstetric Ultrasound Examinations, March 20, 2007. Electronically authenticated by: ALONSO SANDERS Date: 2021-09-01 16:20 Normal [facility] CHLAMYDIA/GONOCOCCUS RIGOBERTO ( AB/URINE/PAPon 08-29-2021 Chlamydia trachomatis, RIGOBERTO Negative Normal Negative [facility] Comment on above: Performed By: #### L IPID #### [facility] [address] [address] [address] Parth Lucero Neisseria gonorrhoeae, RIGOBERTO Negative Normal Negative [facility] Comment on above: Performed By: #### L IPID #### [facility] [address] [place], [place] [address] Dr. Parth Lucero AFP MATERNAL FOR SPINA BIFID Aon 08-18-2021 AFP MoM 1.13 Normal [facility] Comment on above: Performed By: #### 4 [id number] #### [facility] [address] [address] [address] Parth Lucero AFP Value 52.2 ng/mL Normal [facility] Comment on above: Performed By: #### 4 [id number] #### [facility] [address] [address] [address] Parth Lucero AFP, Serum for Spina Bifida Report Normal [facility] Comment on above: Performed By: #### 4 [id number] #### [facility] [address] [address] Dr. Parth Lucero Comment Comment Normal [facility] Comment on above: Result Comment: Ruth Viveros, Ph.D., [facility] Director . References: Available Upon Request. . Multiples Of Median Cutoffs For AFP Elevations Ricardo 2.5 Black 2.8 IDD 2.0 Twins 4.5 Abbreviation Definitions IDD - Insulin Dep Diabetes OSBR - Open Spina Bifida Risk . For further inquiries contact [employer] [facility] at [phone]. Performed By: #### [id number] #### [facility] [address] [address] [address] Parth Modi Age Collection Date 18.0 weeks [facility] Comment on above: Performed By: #### [id number] #### [facility] [address] [address] [address] Parth Lucero Gestat, Age Based on LMP [facility] Comment on above: Result Comment: Reca lculations are not recommended when gestational dating by LMP and ultrasound are within 10 days. Performed By: #### [id number] #### [facility] [address] [address] [address] Parth Lucero Insulin Dep Diabetes No Normal [facility] Comment on above: Performed By: #### [id number] #### [facility] [address] [address] [address] Parth Lucero Interpretation Comment Normal [facility] Comment on above: Result Comment: Inte [...] Customer Services to discuss available options. The [employer] recommends amniocentesis be offered to women age 35 and older. Performed By: #### [id number] #### [facility] [address] [place] [address] Dr. Parth Lucero [age] Normal [facility] Comment on above: Performed By: #### [id number] #### [facility] [address] [place] [address] Dr. Parth Lucero Multiple Gestation No Normal [facility] Comment on above: Performed By: #### [id number] #### [facility] [address] [place] [address] Dr. Parth Lucero OSBR Risk 1 [place] 8106 Normal [facility] Comment on above: Performed By: #### [id number] #### [facility] [address] [place] [address] Dr. Parth Lucero PDF . [facility] Comment on above: Result Comment: This test was developed and its performance characteristics determined by [facility]. It has not been cleared or approved by the Food and Drug Administration. Performed By: #### [id number] #### [facility] [address] [place] [address] Dr. Parth Lucreo Race Normal [facility] Comment on above: Performed By: #### [id number] #### [facility] [address] [place] [address] Dr. Parth Lucero Test Results: Negative Normal [facility] Comment on above: Performed By: #### [id number] #### [facility] [address] [place] [address] Dr. Parth Lucero HEP B SURFACE ANTIGEN SCREEN on 06-25-2021 HBsAg Screen Negative Normal Negative [facility] Comment on above: Performed By: #### H BSANS #### [facility] [address] [place] [address] Dr. Parth Lucero HEPATITIS C VIRUS AB W/ REFL EX QUANTon 06-25-2021 HCV AB <0.1 Normal 0.0-0.9 [facility] Comment on above: Performed By: #### [id number] #### [facility] [address] [place] [address] Dr. Parth Lucero Interpretation: Comment Normal [facility] Comment on above: Result Comment: Nega tive Not infected with HCV, unless recent infection is suspected or other evidence exists to indicate HCV infection. Performed By: #### [id number] #### [facility] [address] [place] [address] Dr. Parth Lucero HIV 1 AND 2 WITH REFLEXon HIV Screen 4th Generation wRfx Non-Reactive Normal Non Reactive [facility] Comment on above: Performed By: #### L IPID #### [facility] [address] [place] [address] Dr. Parth Lucero RPR QUANTon 06-25-2021 Rapid Plasma Reagin, Quant Non-Reactive Normal NonRea<1:1 [facility] Comment on above: Performed By: #### L IPID #### [facility] [address] [place] [address] Dr. Parth Lucero RUBELLA AB IGGon 06-25-2021 Rubella Antibodies, IgG 13.00 index Normal Immune >0.99 [facility] Comment on above: Result Comment: Non- immune <0.90 Equivocal 0.90 - 0.99 Immune >0.99 Performed By: #### [id number] #### [facility] [address] [place] [address] Dr. Parth Lucero CBC AUTO DIFFon 06-23-2021 BASO # 0.0 103/ul Normal 0.0-0.1 [facility] Comment on above: Performed By: #### L IPID #### [facility] [address] [place], [place] [id number] Dr. Parth Lucero Basophils/100 WBC (Bld) 0.3 % Normal 0.2-2.0 [facility] Comment on above: Performed By: #### L IPID #### [facility] [address] [place] [address] Dr. Parth Lucero EO # 0.1 103/ul Normal 0.0-0.7 [facility] Comment on above: Performed By: #### L IPID #### [facility] [address] [place] [address] Dr. Parth Lucero Eosinophils/100 WBC (Bld) 1.1 % Normal 0.9-7.0 [facility] Comment on above: Performed By: #### L IPID #### [facility] [address] [place] [address] Dr. Parth Lucero Erythrocyte distribution width (RBC) [Ratio] 12.7 % Normal 11.0-15.0 [facility] Comment on above: Performed By: #### L IPID #### [facility] [address] [place] [address] Dr. Parth Lucero Hematocrit (Bld) [Volume fraction] 38.2 % Normal 36.0-48.0 [facility] Comment on above: Performed By: #### L IPID #### [facility] [address] [place] [address] Dr. Parth Lucero Hemoglobin (Bld) [Mass/Vol] 13.0 g/dL Normal 12.0-16.0 [facility] Comment on above: Performed By: #### L IPID #### [facility] [address] [place] [address] Dr. Parth Lucero IG # 0.04 10e3/ul Critically high 0.00-0.03 [facility] Comment on above: Performed By: #### L IPID #### [facility] [address] [place] [address] Dr. Parth Lucero IG % 0.4 % Normal 0.0-0.5 [facility] Comment on above: Performed By: #### L IPID #### [facility] [address] [address] [address] Parth Lucero LYMPH # 2.3 103/ul Normal 1.2-3.8 [facility] Comment on above: Performed By: #### L IPID #### [facility] [address] [place] [address] Dr. Parth Lucero Lymphocytes/100 WBC (Bld) 23.8 % Normal 20.5-60.0 [facility] Comment on above: Performed By: #### L IPID #### [facility] [address] [place] [address] Dr. Parth Lucero MANUAL DIFF REQ NO Normal [facility] Comment on above: Performed By: #### L IPID #### [facility] [address] [place] [address] Dr. Parth Lucero MCH (RBC) [Entitic mass] 31.6 pg Normal 26.7-34.0 [facility] Comment on above: Performed By: #### L IPID #### [facility] [address] [place] [address] Dr. Parth Lucero MCHC (RBC) [Mass/Vol] 34.0 g/dL Normal 29.9-35.2 [facility] Comment on above: Performed By: #### L IPID #### [facility] [address] [place] [address] Dr. Parth Lucero MCV (RBC) [Entitic vol] 92.9 fL Normal 81.0-99.0 [facility] Comment on above: Performed By: #### L IPID #### [facility] [address] [place] [address] Dr. Parth Lucero MONO # 0.8 103/ul Normal 0.3-0.8 [facility] Comment on above: Performed By: #### L IPID #### [facility] [address] [place] [address] Dr. Parth Lucero Monocytes/100 WBC (Bld) 7.6 % Normal 1.7-12.0 [facility] Comment on above: Performed By: #### L IPID #### [facility] [address] [address] [address] Parth Lucero NEUT # 6.6 103/ul Critically high 1.4-6.5 [facility] Comment on above: Performed By: #### L IPID #### [facility] [address] [place] [address] Dr. Parth Lucero Neutrophils/100 WBC (Bld) 66.8 % Normal 43.0-75.0 [facility] Comment on above: Performed By: #### L IPID #### [facility] [address] [place] [address] Dr. Parth Lucero Platelet mean volume (Bld) [Entitic vol] 9.4 fL Critically low 9.5-13.5 [facility] Comment on above: Performed By: #### L IPID #### [facility] [address] [place] [address] Dr. Parth Lucero PLT 320 103/ul Normal 150-450 [facility] Comment on above: Performed By: #### L IPID #### [facility] [address] [place] [address] Dr. Parth Lucero RBC 4.11 106/ul Critically low 4.20-5.40 [facility] Comment on above: Performed By: #### L IPID #### [facility] [address] [place] [address] Dr. Parth Lucero WBC 9.8 103/ul Normal 4.0-11.0 [facility] Comment on above: Performed By: #### L IPID #### [facility] [address] [place] [address] Dr. Parth Lucero CULTURE URINEon 06-23-2021 CULTURE URINE Culture Observations : MODERATE GROWTH OF MIXED GENITAL BERNARDINO. NO POTENTIAL PATHOGENS SEEN. Normal [facility] Comment on above: Performed By: #### U RCX #### [facility] [address] [place] [address] Dr. Parth Lucero GLYCOHEMOGLOBIN A1Con 2021 ADA RECOMMENDATION ADA THERAPEUTIC TARGET 6.0 - 7.0 ACTION SUGGESTED > 7.0 Normal [facility] Comment on above: Performed By: #### A 1C #### [facility] [address] [place] [address] Dr. Parth Lucero Glucose [Mass/Vol] 105 mg/dL Normal [facility] Comment on above: Performed By: #### A 1C #### [facility] [address] [place] [address] Dr. Parth Lucero HbA1c (Bld) [Mass fraction] 5.3 % Normal <=6.0 [facility] Comment on above: Performed By: #### A 1C #### [facility] [address] [place] [address] Dr. Parth Lucero TAYLA BOX TEST PT SEND OUTo n 06-23-2021 SENT TO REF LAB 06/23/2021 Normal [facility] Comment on above: Performed By: #### [id number] #### [facility] [address] [place] [address] Dr. Parth Lucero TYPE AND SCREENon 06-23-2021 TYPE AND SCREEN Negative Normal [facility] Comment on above: Performed By: #### 4 [id number] #### [facility] [address] [place] [address] Dr. Parth Lucero US PREG TVon 06-15-2021 [...] by: ALONSO SANDERS Date: 2021-06-15 09:44 Normal [facility] Auth for Release of Medical Recordson 06-05-2021 Auth for Release of Medical Records [id number]. [id number] Normal [facility] Vital Signs Date Time Vital Sign Value Performing Clinician Facility 08-01-2024 15:40-0500 Body mass index (BMI) [Ratio] 29.49 kg/m2 Jorge Luis Katrin DO Work Phone: [facility] 08-01-2024 15:40-0500 Body weight 77.93 kg Jorge Luis Katrin DO Work Phone: [facility] 08-01-2024 15:40-0500 Diastolic blood pressure 82 mm[Hg] Jorge Luis Katrin DO Work Phone: [facility] 08-01-2024 15:40-0500 Systolic blood pressure 122 mm[Hg] Jorge Luis Katrin DO Work Phone: [facility] 07-24-2024 15:18-0500 Body mass index (BMI) [Ratio] 29.66 kg/m2 Bibiana MONROY Work Phone: [facility] 07-24-2024 15:18-0500 Body weight 78.38 kg Bibiana Alcantara PA Work Phone: [facility] 07-24-2024 15:18-0500 Diastolic blood pressure 82 mm[Hg] Bibiana Alcantara PA Work Phone: [facility] 07-24-2024 15:18-0500 Systolic blood pressure 130 mm[Hg] Bibiana Alcantara PA Work Phone: [facility] 07-18-2024 16:25-0500 Body mass index (BMI) [Ratio] 28.84 kg/m2 Jorge Luis Katrin DO Work Phone: [facility] 07-18-2024 16:25-0500 Body weight 76.2 kg Jorge Luis Katrin DO Work Phone: [facility] 07-18-2024 16:25-0500 Diastolic blood pressure 76 mm[Hg] Jorge Luis Katrin DO Work Phone: [facility] 07-18-2024 16:25-0500 Systolic blood pressure 114 mm[Hg] Jorge Luis Katrin DO Work Phone: [facility] 07-11-2024 16:13-0500 Body mass index (BMI) [Ratio] 29.15 kg/m2 Bibiana Quinton PA Work Phone: [facility] 07-11-2024 16:13-0500 Body weight 77.02 kg Bibiana Quinton PA Work Phone: [facility] 07-11-2024 16:13-0500 Diastolic blood pressure 74 mm[Hg] Bibiana Quinton PA Work Phone: [facility] 07-11-2024 16:13-0500 Systolic blood pressure 112 mm[Hg] Bibiana Greentop PA Work Phone: [facility] 06-27-2024 16:21-0500 Body mass index (BMI) [Ratio] 27.98 kg/m2 Jorge Luis Katrin DO Work Phone: [facility] 06-27-2024 16:21-0500 Body weight 73.94 kg Jorge Luis Katrin DO Work Phone: [facility] 06-27-2024 16:21-0500 Diastolic blood pressure 70 mm[Hg] Jorge Luis Katrin DO Work Phone: [facility] 06-27-2024 16:21-0500 Systolic blood pressure 112 mm[Hg] Jorge Luis Katrin DO Work Phone: [facility] 06-06-2024 16:04-0500 Body mass index (BMI) [Ratio] 27.46 kg/m2 Bibiana Greentop PA Work Phone: [facility] 06-06-2024 16:04-0500 Body weight 72.58 kg Bibiana Greentop PA Work Phone: [facility] 06-06-2024 16:04-0500 Diastolic blood pressure 66 mm[Hg] Bibiana Greentop PA Work Phone: [facility] 06-06-2024 16:04-0500 Systolic blood pressure 110 mm[Hg] Bibiana Greentop PA Work Phone: [facility] 05-21-2024 16:56-0500 Body mass index (BMI) [Ratio] 27.09 kg/m2 Jorge Luis Katrin DO Work Phone: [facility] 05-21-2024 16:56-0500 Body weight 71.58 kg Jorge Luis Katrin DO Work Phone: [facility] 05-21-2024 16:56-0500 Diastolic blood pressure 64 mm[Hg] Jorge Luis Katrin DO Work Phone: [facility] 05-21-2024 16:56-0500 Systolic blood pressure 106 mm[Hg] Jorge Luis Katrin DO Work Phone: [facility] 05-07-2024 16:39-0500 Body mass index (BMI) [Ratio] 26.09 kg/m2 Bibiana Alcantara PA Work Phone: [facility] 05-07-2024 16:39-0500 Body weight 68.95 kg Bibiana Quinton PA Work Phone: [facility] 05-07-2024 16:39-0500 Diastolic blood pressure 68 mm[Hg] Bibiana Greentop PA Work Phone: [facility] 05-07-2024 16:39-0500 Systolic blood pressure 112 mm[Hg] Bibiana Alcantara PA Work Phone: [facility] 04-16-2024 14:18-0400 Body height 160 cm Jeet Tavares MD Work Phone: [facility] 04-16-2024 14:18-0400 Body mass index (BMI) [Ratio] 26.39 kg/m2 Jeet Tavares MD Work Phone: [facility] 04-16-2024 14:18-0400 Body weight 67.59 kg Jeet Tavares MD Work Phone: [facility] 04-16-2024 14:18-0400 Diastolic blood pressure 78 mm[Hg] Jeet Tavares MD Work Phone: [facility] 04-16-2024 14:18-0400 Heart rate 102 /min Jeet Tavares MD Work Phone: [facility] 04-16-2024 14:18-0400 Systolic blood pressure 133 mm[Hg] Jeet Tavares MD Work Phone: [facility] 04-03-2024 14:57-0400 Body mass index (BMI) [Ratio] 25.4 kg/m2 Jorge Luis Katrin DO Work Phone: [facility] 04-03-2024 14:57-0400 Body weight 67.13 kg Jorge Luis Katrin DO Work Phone: [facility] 04-03-2024 14:57-0400 Diastolic blood pressure 64 mm[Hg] Jorge Luis Katrin DO Work Phone: [facility] 04-03-2024 14:57-0400 Systolic blood pressure 100 mm[Hg] Jorge Luis Katrin DO Work Phone: [facility] 03-05-2024 16:05-0400 Body mass index (BMI) [Ratio] 23.54 kg/m2 Bibiana MONROY Work Phone: [facility] 03-05-2024 16:05-0400 Body weight 62.2 kg Bibiana MONROY Work Phone: [facility] 03-05-2024 16:05-0400 Diastolic blood pressure 74 mm[Hg] Bibiana MONROY Work Phone: [facility] 03-05-2024 16:05-0400 Systolic blood pressure 112 mm[Hg] Bibiana MONROY Work Phone: [facility] 02-06-2024 15:48-0400 Body mass index (BMI) [Ratio] 23.25 kg/m2 Jorge Luis Katrin DO Work Phone: [facility] 02-06-2024 15:48-0400 Body weight 61.43 kg Jorge Luis Katrin DO Work Phone: [facility] 02-06-2024 15:48-0400 Diastolic blood pressure 74 mm[Hg] Jorge Luis Katrin DO Work Phone: [facility] 02-06-2024 15:48-0400 Systolic blood pressure 112 mm[Hg] Jorge Luis Katrin DO Work Phone: [facility] 08-18-2021 18:08-0500 Body weight 63.[address] RODNEY CAPUTO [facility] Comment on above: Performed By: #### [id number] #### [facility] [address] [address] [address] Parth Lucero Encounters Encounter Date Encounter Type Care Provider Facility Start: 08-01-2024 End: 08-01-2024 ambulatory JORGE LUIS KATRIN Not Available Start: 08-01-2024 End: 08-01-2024 flow sheet Jorge Luis Katrin DO Work Phone: [facility] Comment on above: Third trimester preg alfredo; 38 weeks gestation of ; Folliculitis Start: 08-01-2024 End: 08-01-2024 Bamboo flowsheet Jorge Luis Katrin DO Work Phone: [facility] Start: 08-01-2024 End: 08-01-2024 Bamboo flowsheet Jorge Luis Katrin DO Work Phone: [facility] Start: 07-24-2024 End: 07-24-2024 ambulatory BIBIANA ALCANTARA Not Available Start: 07-24-2024 End: 07-24-2024 flow sheet Bibiana MONROY Work Phone: [facility] Comment on above: Third trimester preg alfredo; 37 weeks gestation of Start: 07-24-2024 End: 07-24-2024 Bamboo flowsheet Bibiana MONROY Work Phone: [facility] Start: 07-24-2024 End: 07-24-2024 Bamboo flowsheet Bibiana MONROY Work Phone: [facility] Start: 07-18-2024 End: 07-18-2024 flow sheet Jorge Luis Katrin DO Work Phone: [facility] Comment on above: Third trimester [...] [facility] Start: 05-21-2024 End: 05-21-2024 ambulatory JROGE LUIS KATRIN Not Available Start: 05-21-2024 End: [...] ambulatory JORGE LUIS R KATRIN [facility] Start: 05-07-2024 End: 05-07-2024 flow sheet Bibiana MONROY Work Phone: [facility] Comment on above: 26 weeks gestation o f ; Second trimester ; Elevated glucose tolerance test Start: 05-07-2024 End: 05-07-2024 ambulatory BIBIANA ALCANTARA Not Available Start: 05-07-2024 End: 05-07-2024 Bamboo flowsheet Biibana MONROY Work Phone: [facility] Start: [...] Jeet Tavares MD Work Phone: [facility] Comment on above: Echogenic focus of h eart of fetus affecting antepartum care of mother, single or unspecified fetus (Primary Dx); Low lying placenta, antepartum; Suspected condition not found; Family history of congenital heart defect; 23 weeks gestation of Start: 04-16-2024 End: 04-16-2024 ambulatory [facility] Start: 04-11-2024 End: 04-11-2024 Chart abstracting Jeet Tavares MD Work Phone: [facility] Start: 04-03-2024 End: 04-03-2024 flow sheet Jorge [...] Patient encounter procedure Bibiana MONROY Work Phone: [facility] Work Phone: Start: 03-05-2024 End: 03-05-2024 Periodic preventive med est patient 18-39 yrs Bibiana MONROY Work Phone: [facility] Comment on above: Well [...] (routine) without abnormal findings DR RODNEY CAPUTO [facility] Start: 08-26-2021 End: 08-26-[address] [...] Work Phone: Start: 07-16-2024 [facility] UA (CLEAN/CATCH) LENO SEWER/MICRO IF IND. Jorge Luis Katrin DO Work [...] [Identifier] in Cervix by Cyto stain Bibiana MONRYO Work Phone: Start: 03-05-2024 Cytp cerv/vag auto t hin layer prep mnl screen [facility] DO Work Phone: Start: 03-05-2024 URETHRITIS/DISCHARGE [...] Adult BMI Screening Adult BMI Screen ing [facility] Start: 04-16-2025 Tobacco Screening Tobacco Screening [facility] Start: 08-08-2024 End: 08-08-2024 Patient encounter procedure 08/08/2024 3:20 PM EST Routine [facility] [address] [place] [phone] Jorge Luis Wilkes, DO [address] [place] [address] [facility] Start: 08-01-2024 End: 08-01-2024 Patient encounter procedure 08/01/2024 3:00 PM EST Routine [facility] [address] [place] [phone] Jorge Luis Wilkes, DO [address] [place] [address] [facility] Start: 07-24-2024 End: 07-24-2024 Patient encounter procedure 07/24/2024 2:50 PM EST Routine [facility] [address] [place] [id number] Bibiana Alcantara, ELIANA [address] [place] [address] [facility] Start: 07-18-2024 End: 07-18-2024 [...] PM EST Routine [facility] [address] [facility] [place] [id number] Jorge Luis Wilkes, DO [address] [place] [address] [facility] Start: 06-27-2024 End: 06-27-2025 US for US OB follow up transabdominal approach Imaging Routine Excessive growth affecting management of , antepartum, single or unspecified fetus Expected: 06/27/2024, Expires: 06/27/2025 [facility] Work Phone: Comment on above: Expected: 06/27/2024 , Expires: 06/27/2025 Start: 05-21-2024 End: 05-21-2024 Patient encounter procedure 05/21/2024 3:50 PM EST Routine [facility] [address] [facility] [place] [address] Jorge Luis Wilkes, DO [address] [place] [address] [facility] Start: 05-15-2024 End: 05-15-2024 Patient encounter procedure 05/15/2024 10:15 AM EST Appointment [facility] [address] [place] [address] [facility] Start: 05-07-2024 End: 05-07-2024 [...] End: 04-16-2024 Patient encounter procedure [facility] Start: 04-04-2024 End: 04-04-2024 Patient encounter procedure 04/04/2024 3:10 PM EDT Routine [facility] [address] [facility] [place] [id number] Jorge Luis Wilkes, DO [address] [place] [address] [facility] Start: 04-03-2024 End: 04-03-2024 Patient encounter procedure 04/03/2024 2:20 PM EDT Routine [facility] [address] [facility] [place] [id number] Jorge Luis Wilkes, DO [address] [place], [place] [id number] Arrived [facility] Comment on above: [...] mellitus screening Expected: 04/03/2024 (Approximate), Expires: 04/03/2025 [facility] Comment on above: Expected: 04/03/2024 (Approximate), Expires: 04/03/2025 Start: 04-03-2024 End: 04-03-2025 US for US OB INCOMPLETE ANATOMY Imaging Routine Encounter for follow-up ultrasound of anatomy Expected: 04/03/2024 (Approximate), Expires: 04/03/2025 [facility] Work Phone: Comment on above: Expected: 04/03/2024 (Approximate), Expires: 04/03/2025 Start: 03-05-2024 End: 03-05-2024 Patient encounter procedure [facility] Comment on above: Arrived Start: 03-05-2024 End: 09-02-2024 Alpha fetoprotein, maternal Alpha fetoprotein, maternal Lab Routine Second trimester Expected: 03/05/2024 (Approximate), Expires: 09/02/2024 [facility] Comment on above: Expected: 03/05/2024 (Approximate), Expires: 09/02/2024 Start: 03-05-2024 End: 03-05-2025 US for US OB ANATOMY SINGLE W US OB CERVICAL LENGTH Imaging Routine Screening, , for anatomic survey Expected: 03/05/2024 (Approximate), Expires: 03/05/2025 [facility] Comment on above: Expected: 03/05/2024 (Approximate), Expires: 03/05/2025 Start: 02-19-[address] [facility] Start: 10-15-2021 Screening for malign ant neoplasm of cervix [facility] Start: 10-15-2012 Screening for malign ant neoplasm of cervix Pap Smear [facility] Start: 10-15-2010 DTaP,Tdap and Td Vaccines (1 - Tdap) DTaP,Tdap and Td Vaccines (1 - Tdap) [facility] Start: 10-15-2009 Adult BMI Follow Up Plan Adult BMI Follow Up Plan [facility] Start: 10-15-2009 Adult BMI Screening Adult BMI Screen ing [facility] Start: 2003 Depression Screening Depression Scre ening [facility] Start: 2003 Tobacco Screening Tobacco Screening [facility] CHLAMYDIA TRACHOMATI S (GENITO/STI) CHLAMYDIA TRACHOMATIS (GENITO/STI) Lab Routine STD exposure Ordered: 03/05/2024 [facility] Comment on above: Ordered: 03/05/2024 Cytology Cervical or vaginal smear or scraping study Pap Smear Pathology and Cytology Routine Well woman exam with routine gynecological exam Ordered: 03/05/2024 [facility] Work Phone: Comment on above: Ordered: 03/05/2024 Human papilloma viru s DNA [Presence] in Unspecified specimen by Probe with amplification HPV DNA probe, amplified Microbiology Routine Well woman exam with routine gynecological exam Ordered: 03/05/2024 [facility] Comment on above: Ordered: 03/05/2024 Neisseria gonorrhoea e DNA [Presence] in Unspecified specimen by RIGOBERTO with probe detection Neisseria gonorrhea DNA probe, direct Lab Routine STD exposure Ordered: 03/05/2024 [facility] Comment on above: Ordered: 03/05/2024 SURESWAB(R) ADVANCED VAGINITIS PLUS, TMA SURESWAB(R) ADVANCED VAGINITIS PLUS, TMA Pathology and Cytology Routine Vaginal discharge Ordered: 03/05/2024 [facility] Comment on above: Ordered: 03/05/2024 Payers Date Payer Category Payer Private Health Insurance [employer] [id number] 2017 Unknown [employer] [id number] 2017-Present [address] [place] [address] [id number] 1991 Unknown [id number] .840.1.707301.3.579.2. 593 1991 Unknown [id number] 2.16840.1.513817.3.579.2. 593 1991 Unknown [id number] 2.16.840.1.225207.3.579.2. 593 1991 Unknown [id number] 2.840.1.872888.3.579.2. 593 1991 Unknown [id number] 2.16840.1.273431.3.579.2. 593 1991 Unknown [id number] 2.840.1.676490.3.579.2. 593 1991 Unknown [id number] 2.840.1.899760.3.579.2. 593 1991 Unknown [id number] 2..1.829474.3.579.2. 593 1991 Unknown [id number] 2.840.1.697096.3.579.2. 593 1991 Unknown [id number] 2.840.1.178816.3.579.2. 593 1991 Unknown [id number] 2.840.1.622834.3.579.2. 593 1991 Unknown [id number] 2.840.1.539089.3.579.2. 593 1991 Unknown [id number] 2.840.1.727937.3.579.2. 593 1991 Unknown [id number] 2.840.1.767426.3.579.2. 593 1991 Unknown [id number] 2.840.1.662391.3.579.2. 593 1991 Unknown [id number] 2.840.1.548412.3.579.2. 1286 1991 Unknown [id number] 2.16840.1.727747.3.579.2. 1286 1991 Unknown [id number] 2.16840.1.718875.3.579.2. 1285 1991 Unknown [id number] 2.16840.1.765263.3.579.2. 1258 1991 Unknown [id number] 2.16840.1.093300.3.579.2. 1258 1991 Unknown [id number] 2.16840.1.278694.3.579.2. 1258 1991 Unknown [id number] 2.840.1.688930.3.579.2. 1258 1991 Unknown [id number] 2.840.1.847236.3.579.2. 1258 1991 Unknown [id number] 2.840.1.711563.3.579.2. 1258 1991 Unknown [id number] 2.840.1.189638.3.579.2. 1258 1991 Unknown [id number] 2.840.1.005255.3.579.2. 1258 1991 Unknown [id number] 2.840.1.053859.3.579.2. 1258 1991 Unknown [id number] 2.840.1.578958.3.579.2. 1258 1991 Unknown [id number] 2.16840.1.242952.3.579.2. 1258 1991 Unknown [id number] 2.16840.1.661600.3.579.2. 1258 1991 Unknown [id number] 2.16840.1.839168.3.579.2. 1258 1991 Unknown [id number] 2.16840.1.924540.3.579.2. 1258 1991 Unknown [id number] 2.16.840.1.038271.3.579.2. 1259 1991 Unknown [id number] 2.16.840.1.616152.3.579.2. 1259 1991 Unknown [id number] 2.16.840.1.948460.3.579.2. 1259 1959 Self-pay 1958 Unknown [id number] [employer] are - PPO [employer] [id number] Unknown [id number] 2.16.840.1.706994.3.579.2. 593 Social History Date Type Detail Facility Start: 10-12-2023 End: 04-11-2024 Tobacco smoking status AZIS Never smoked tobacco [facility] Start: 10-12-2023 End: 04-11-2024 Tobacco use and exposure Smokeless tobacco non-user [facility] Start: 02-06-2024 End: 04-16-2024 Alcoholic beverage intake Ex-drinker (finding) [facility] Start: 02-06-2024 End: 04-16-2024 Alcoholic beverage intake [facility] Start: 12-07-2023 End: 04-16-2024 Tobacco use panel [facility] Start: 11-20-2023 [facility] Start: 1990 Sex assigned at Not on file [facility] Start: 04-10-2024 Sex Female (finding) [facility] Within the past 12 months we worried whether our food would run out before we got money to buy more. Never True [facility] Goals Date Patient Goal Desired Activity /State Personal health goal Clinical Notes 02-06-2024 to 08-01-2024 Ivana Uriarte, ZINC PLATE GRAINER - 08/01/2024 3:00 PM Marisa Alcantara, ELIANA - 07/24/2024 2:50 PM GARTHBibiana Alcantara, ELIANA - 07/18/2024 4:00 PM GARTHBibiana Alcantara, ELIANA - 07/11/2024 3:50 PM Minda Uriarte, ZINC PLATE GRAINER - 06/27/2024 3:40 PM EST Note Date [...] nursing note reviewed. Exam conducted with a lawn sprinkler servicer present. Vitals: Estimated body mass index is [...] Luis Wilkes DO documented in this encounter [facility] 07-24-2024 History of Present illness Narrative Reason [...] of: ELIANA Candelaria documented in this encounter [facility] 07-18-2024 History of Present illness Narrative Reason [...] Diabetes Mother Melita Campa Rheum arthritis Mother Mleita Campa Hypertension Father Bryant Campa SURGICAL HISTORY [...] Luis Wilkes DO documented in this encounter [facility] 07-11-2024 History of Present illness Narrative [...] of: ELIANA Candelaria documented in this encounter [facility] 06-27-2024 History of Present illness Narrative [...] nursing note reviewed. Exam conducted with a lawn sprinkler servicer present. Vitals: Estimated body mass index is [...] Luis Wilkes DO documented in this encounter [facility] 06-06-2024 History of Present illness Narrative [...] of: ELIANA Candelaria documented in this encounter [facility] 05-21-2024 History of Present illness Narrative [...] Luis Wilkes DO documented in this encounter [facility] 05-07-2024 History of Present illness Narrative [...] Pt was scheduled to go back to [facility] in 4 weeks for a f/up US visit for Echo focus of fetus. Pt states she is unable to make the appt and would like to have the US done here in [place]. Follow Up: Patient is to return to office in 2 week for routine OB appointment. Documented by Maggie Prieto MA on behalf of: ELIANA Candelaria documented in this encounter [facility] 04-16-2024 History of Present illness Narrative [...] Start Date End Date Taking? Authorizing Provider [id number] 28-800 mg-mcg tablet Take 1 tablet [...] continue with routine care in your office [facility], the CDC, and other organizations representing maternal and public health professionals recommend that , , and lactating people and those considering receive the COVID-19 vaccination. Vaccination is the best method to reduce maternal and complications of SARS-CoV-2 infection. This document was created with [employer] technology. Though I make every effort to review the dictation as it is transcribed, on occasion the spoken word can be misinterpreted by the technology leading to inappropriate words, phrases, or sentences. This note is addressed to the requesting provider as a consultation for clinical guidance. Specific medical abbreviations are occasionally used and those are generally approved by the [place]?Board of?Obstetrics and?Gynecology?as well as?Steve palmer abbreviations. The above plan of care was based solely on the diagnoses for which a consultation was requested. ?More frequent testing may be indicated based on her other medical/obstetrical conditions. The management of other or medical conditions is beyond the scope of requested consultation and will continue to be followed by the primary furniture sales associate or primary care provider. Thank you for [...] procedures Referring and communicating with other health certified caregiver (not separately reported) Documenting clinical information in [...] yes Have you been seen here at [facility] in a previous ? no Recent ER visits or hospitalizations? no Bring blood sugar log or meter with you today? (Please bring them with you for every visit at [facility]) n/a Flu vaccine (Apr-August)? no Any concerns that you would like me to mention to the provider today? no documented in this encounter [facility] 04-03-2024 History of Present illness Narrative Reason [...] nursing note reviewed. Exam conducted with a lawn sprinkler servicer present. Vitals: Estimated body mass index is [...] Luis Wilkes DO documented in this encounter [facility] 03-05-2024 History of Present illness Narrative [...] nursing note reviewed. Exam conducted with a lawn sprinkler servicer present. Vitals: Estimated body mass index is [...] obtained without difficulty and patient was given [facility] order to have obtained. Orders Placed [...] of: ELIANA Candelaria documented in this encounter [facility] 02-06-2024 History of Present illness Narrative [...] nursing note reviewed. Exam conducted with a lawn sprinkler servicer present. Vitals: Estimated body mass index is [...] or undercooked meat, and stay away from [facility]. Patient has been consulted regarding any further do's and don'ts of . Patient voiced understanding and all questions and concerns were answered. Orders Placed This Encounter Procedures POCT urinalysis dipstick manually resulted Follow Up: Patient is to return in 4 weeks for routine OB appointment. Documented by Pooja Mendez LPN on behalf of: Jorge Luis Wilkes DO documented in this encounter [facility] Evaluation note Diagnosis 21 weeks gestation of Second trimester state, incidental Encounter for follow-up ultrasound of anatomy Diabetes mellitus screening Screening for diabetes mellitus documented in this encounter [facility]* Diagnosis 26 weeks gestation of Second [...] hair follicles documented in this encounter [facility]* Diagnosis Echogenic focus of heart of fetus affecting antepartum care of mother, single or unspecified fetus- Primary Low lying placenta, antepartum Suspected condition not found Observation for unspecified suspected condition Family history of congenital heart defect 23 weeks gestation of documented in this encounter [facility] filed[facility]ed in this encounter [facility] on filedocumented in this encounter [facility] Summary Purpose Family History No [...] DATE CREATED AUTHOR 06/06/[address] [facility] DATE CREATED AUTHOR AUTHOR'S ORGANIZ ATION 05/12/2022 [facility] DATE CREATED AUTHOR AUTHOR'S ORGANIZ ATION 04/17/2024 [facility] DATE CREATED AUTHOR AUTHOR'S ORGANIZ ATION 05/17/2024 [facility] DATE CREATED AUTHOR AUTHOR'S ORGANIZ ATION 08/03/2024 [facility] Care Teams (unrecognized sec tion and content) Hat Binder 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 Specialty Start Date End Date Tamir Fuentes MD [address] [place] [address] PCP - General Family Medicine 10/12/23 Merlene Choe MD [address] [place] [id number] Referring Physician Internal Medicine 10/12/23 Hat Binder 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 Specialty Start Date End Date Tamir Fuentes MD [address] [place] [address] PCP - General Family Medicine 10/12/23 Merlene Choe MD [address] [place] [phone] Referring Physician Internal Medicine 10/12/23 Hat Binder 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 Specialty Start Date End Date Tamir Fuentes MD [address] [place] [address] PCP - General Family Medicine 10/12/23 Bibiana Alcantara PA [address] [place] [address] [place] [address] PCP - Medical [place] [employer] 06/20/17 06/19/99 Merlene Choe MD [address] [place] [phone] Referring Physician Internal Medicine 10/12/23 Hat Binder 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 Specialty Start Date End Date Tamir Fuentes MD [address] [place] [address] PCP - General Family Medicine 10/12/23 Bibiana Alcantara PA [address] [place] [address] [place] [address] PCP - Medical [place] [employer] 06/20/17 06/19/99 Merlene Choe MD [address] [place] [phone] Referring Physician Internal Medicine 10/12/23 Hat Binder 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 Specialty Start Date End Date Tamir Fuentes MD [address] [place] [address] PCP - General Family Medicine 10/12/23 Bibiana Alcantara PA [address] [place] [address] [place] [address] PCP - Medical [place] [employer] 06/20/17 06/19/99 Merlene Choe MD [address] [place] [address] Referring Physician Internal Medicine 10/12/23 Hat Binder 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 Specialty Start Date End Date Tamir Fuentes MD [address] [place] [address] PCP - General Family Medicine 10/12/23 Bibiana Alcantara PA [address] [place] [address] [place] [address] PCP - Medical [place] [employer] 06/20/17 06/19/99 Merlene Choe MD [address] [place] [address] Referring Physician Internal Medicine 10/12/23 Hat Binder 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 Specialty Start Date End Date Tamir Fuentes MD [address] [place] [address] PCP - General Family Medicine 10/12/23 Merlene Choe MD [address] [place] [address] Referring Physician Internal Medicine 10/12/23 Hat Binder 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 Specialty Start Date End Date Tamir Fuentes MD [address] [place] [address] PCP - General Family Medicine 10/12/23 Merlene Choe MD [address] [place] [address] Referring Physician Internal Medicine 10/12/23 Hat Binder 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 Specialty Start Date End Date Tamir Fuentes MD [address], [place] [id number] PCP - General Family Medicine 10/12/23 Bibiana Alcantara PA [facility] [place] [address] PCP - Medical [place] [employer] 06/20/17 06/19/99 Merlene Choe MD [address] [place] [phone] Referring Physician Internal Medicine 10/12/23 Hat Binder 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 Specialty Start Date End Date Tamir Fuentes MD [address] [place] [address] PCP - General Family Medicine 10/12/23 Bibiana Alcantara PA [facility] [place] [address] PCP - Medical [place] [employer] 06/20/17 06/19/99 Merlene Choe MD [address] [place] [address] Referring Physician Internal Medicine 10/12/23 Hat Binder 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 Specialty Start Date End Date Tamir Fuentes MD [address] [place] [address] PCP - General Family Medicine 10/12/23 Bibiana Alcantara PA [address] [facility] [place] [address] PCP - Medical [place] [employer] 06/20/17 06/19/99 Merlene Choe MD [address] [place] [address] Referring Physician Internal Medicine 10/12/23 Hat Binder 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 Specialty Start Date End Date Tamir Fuentes MD [address] [place], [facility] PCP - General Family Medicine 10/12/23 Bibiana Alcantara PA [address] [facility] [place] [address] PCP - Medical [place] [employer] 06/20/17 06/19/99 Merlene Choe MD [address] [place] [phone] Referring Physician Internal Medicine 10/12/23 Hat Binder 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 Specialty Start Date End Date Tamir Fuentes MD [address] [place] [address] PCP - General Family Medicine 10/12/23 Bibiana Alcantara PA [address] [facility] [place] [address] PCP - Medical [place] [employer] 06/20/17 06/19/99 Merlene Choe MD [address] [place] [address] Referring Physician Internal Medicine 10/12/23 Hat Binder 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 Specialty Start Date End Date Tamir Fuentes MD [address] [place], [place] [id number] PCP - General Family Medicine 10/12/23 Bibiana Alcantara PA [address] [place] [address] [place] [address] PCP - Medical [employer] 06/20/17 06/19/99 Merlene Choe MD [address] [place] [phone] Referring Physician Internal Medicine 10/12/23 Reason for Visit (unrecogniz ed section and content) Reason Comments Routine Visit Reason Comments STI Screening Routine Visit Well Women Visit Reason Comments EIF FOR RECORDS PERTAINING [...] BE BASED ON THE PRIMARY CLINICAL RECORDS. [employer] provides no warranty or guarantee of the accuracy or completeness of information in this document.
[2024-08-08 20:05] VITALS: BP 137/75; PULSE 75
[2024-08-08 20:05] LABS: Hematocrit 39.2 % (36.0-48.0); Hemoglobin 12.8 g/dL (12.0-16.0); Mean Corpuscular HGB Conc 32.7 g/dL (29.9-35.2); Mean Corpuscular Hemoglobin 29.8 pg (26.7-34.0); Mean Corpuscular Volume 91.4 fL (81.0-99.0); Mean Platelet Volume 10.5 fL (9.5-13.5); Platelet Count 278 10^3/uL (150-450); Red Blood Count 4.29 10^6/uL (4.20-5.40); Red Cell Distribution Width 14.1 % (11.0-15.0); White Blood Count 12.5 10^3/uL (4.0-11.0)
[2024-08-08 20:17] LABS: Amphetamine Screen Urine NEGATIVE (NEGATIVE); Barbiturates Screen Urine NEGATIVE (NEGATIVE); Benzodiazepines Screen Urine NEGATIVE (NEGATIVE); Buprenorphine Screen Urine NEGATIVE (NEGATIVE); Cannabinoid Screen Urine NEGATIVE (NEGATIVE); Cocaine Screen Urine NEGATIVE (NEGATIVE); Methadone Screen Urine NEGATIVE (NEGATIVE); Methamphetamines Screen Urine NEGATIVE (NEGATIVE); Opiate Screen Urine NEGATIVE (NEGATIVE); Oxycodone Screen Urine NEGATIVE (NEGATIVE); Phencyclidine Screen Urine NEGATIVE (NEGATIVE); Tricyclic Antidepressant Urine NEGATIVE (NEGATIVE)
[2024-08-09] VITALS (24 sets, daily range): BP systolic 118–148; BP diastolic 68–92; PULSE 66–103; TEMP 36.6–37.2
[2024-08-09] MEDS: 0.9 % SODIUM CHLORIDE 1,000 ML 125 ML IV (03:09)
[2024-08-09] MEDS: OXYTOCIN/0.9 % SODIUM CHLORIDE 10 UNITS/500 ML PLAST..BAG 6 UNIT IV (03:10)
[2024-08-09] MEDS: OXYTOCIN/0.9 % SODIUM CHLORIDE 20 UNITS/1,000 ML PLAST..BAG 999 UNIT IV (05:50)
--- NOTE | 2024-08-09 05:54 | PM.OBPRCVD ---
Procedure Intrapartal events: None Induction method: none Delivery augmentation: rupture of membranes and pitocin Delivery monitor: external FHT and external uterine Route of delivery: Episiotomy Description: none L&D Laceration Description: none Estimated blood loss (mL): 200 Anesthesia type: None Disposition: floor Infant Delivery date: 08/09/24 Gender: female presentation: vertex Placental delivery description: Spontaneous cord description: 3 Vessels
[2024-08-09] MEDS: IBUPROFEN 600 MG TABLET PO ×3 (06:59→20:24)
--- NOTE | 2024-08-09 10:14 | PM.OBPN ---
OB - PN: Subj Subjective Patient comments: no complaints, pain well controlled and tolerating diet Exam Constitutional Vital Signs, click to edit/add: Last Vital Signs Temp 98.1 F 08/09/24 07:20 Pulse 67 08/09/24 08:28 Resp 14 08/09/24 07:20 BP 148/68 H 08/09/24 08:28 O2 Del Method Room Air 08/09/24 07:20 Common normals: no apparent distress and oriented x3 GI Common normals: soft to palpation and non-tender Inspection: normal to inspection Other: Fundus - firm below umbilicus Other: Perineum - minimal bleeding Extremity Common normals: normal to inspection Neuro Common normals: oriented x3 Psych Common normals: mental status grossly normal Results Labs Labs: Short CBC 08/08/24 Range/Units 18:45 WBC 12.5 H (4.0-11.0) 10^3/uL Hgb 12.8 (12.0-16.0) g/dL Hct 39.2 (36.0-48.0) % Plt Count 278 (150-450) 10^3/uL OB - PN: A/P Plan - Vaginal Delivery day: 1 Plan: routine care Time Spent with Patient Time: Total time spent is greater than 50% in coordination of care (as documented) at patient's floor/unit and/or counseling patient: Total time spent with greater than 50% in coordination of care (as documented) at patient's floor/unit and/or counseling patient: less than 15 minutes
[2024-08-09] MEDS: ACETAMINOPHEN 325 MG TABLET 650 MG PO (16:01)
[2024-08-10 01:02] VITALS: BP 124/88; PULSE 73
--- NOTE | 2024-08-10 04:44 | PM.OBPN ---
OB - PN: Subj Subjective Patient comments: no complaints and pain well controlled [place] status: doing well Exam Constitutional Vital Signs, click to edit/add: Last Vital Signs Temp 98.9 F 08/09/24 16:00 Pulse 73 08/10/24 01:02 Resp 14 08/10/24 01:00 BP 124/88 08/10/24 01:02 O2 Del Method Room Air 08/10/24 01:00 Documenting provider has reviewed patient's vital signs: yes Common normals: no apparent distress Respiratory Common normals: normal respiratory effort and clear to auscultation bilaterally Cardio Common normals: regular rate and regular rhythm GI Common normals: Normal to inspection, nondistended, normoactive bowel sounds present Extremity Common normals: no clubbing, cyanosis or edema and no calf tenderness OB - PN: A/P Plan - Vaginal Delivery day: 1 Plan: routine care, discharge home and follow up 6 weeks Time Spent with Patient Time: Total time spent is greater than 50% in coordination of care (as documented) at patient's floor/unit and/or counseling patient: Total time spent with greater than 50% in coordination of care (as documented) at patient's floor/unit and/or counseling patient: less than 15 minutes
[2024-08-10 06:53] LABS: Basophils Absolute Auto 0.1 10^3/uL (0.0-0.1); Basophils Percent Auto 0.6 % (0.2-2.0); Eosinophils Absolute Auto 0.3 10^3/uL (0.0-0.7); Eosinophils Percent Auto 2.1 % (0.9-7.0); Hematocrit 35.8 % (36.0-48.0); Hemoglobin 11.8 g/dL (12.0-16.0); Immature Granulocytes Abs Auto 0.14 10^3/uL (0.00-0.03); Lymphocytes Absolute Auto 2.8 10^3/uL (1.2-3.8); Mean Corpuscular Hemoglobin 29.9 pg (26.7-34.0); Mean Corpuscular Volume 90.9 fL (81.0-99.0); Mean Platelet Volume 9.6 fL (9.5-13.5); Monocytes Percent Auto 7.5 % (1.7-12.0); Neutrophils Absolute Auto 9.6 10^3/uL (1.4-6.5); Neutrophils Percent Auto 68.8 % (43.0-75.0); Platelet Count 233 10^3/uL (150-450); Red Blood Count 3.94 10^6/uL (4.20-5.40); Red Cell Distribution Width 14.2 % (11.0-15.0); White Blood Count 13.9 10^3/uL (4.0-11.0)
[2024-08-10] MEDS: DOCUSATE SODIUM 100 MG CAPSULE PO (08:37)
[2024-08-10] MEDS: IBUPROFEN 600 MG TABLET PO (08:37)
[2024-08-10 09:25] VITALS: BP 117/79; PULSE 74; TEMP 36.8
== END 2024-08-10 13:40 | disposition home or self-care (01) | DRG 807 ==
PROVIDERS: Admitting Provider Obstetrics & Gynecology; Visit Provider Obstetrics & Gynecology
DX: O80 Encounter for full-term uncomplicated delivery (principal); Z37.0 Single live birth; Z3A.39 39 weeks gestation of pregnancy
CPT/HCPCS: 36415; 59050; 59410; 80307; 85025; 85027; 86850; 86900; 86901

== ENCOUNTER 2024-08-12 11:39 | Emergency (ER) | payer OTHER, SELFPAY ==
[2024-08-12] VITALS (10 sets, daily range): BP systolic 145–150; BP diastolic 90–94; PULSE 75–102; TEMP 36.7; O2SAT 97–98; BMI 30.1
--- NOTE | 2024-08-12 11:48 | ECG_ITS ---
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
--- OUTSIDE RECORDS SUMMARY | 2024-08-12 11:49 | XMS_ITS | CCD ---
Author Organization [facility] Care Team Providers Care Executive Steward Name Role Phone HARSHAL, DR STEVENS Attending [...] Unavailable KATRIN, JORGE LUIS R Referring Unavailable Unavailable Primary Care Provider Unavailannamaria e QUINTON, BIBIANA Attending Unavailable KATRIN, JORGE LUIS Attending Unavailable DOLCE, EMILY Grimaldo Attending Unavailable QUINTON, BIBIANA Attending Unavailable KATRIN, JROGE LUIS Attending Unavailable KATRIN, JORGE LUIS Attending Unavailable DOLCE, EMILY Dillan Referring Unavailable DOLCE, EMILY Grimaldo Attending Unavailable [...] Facility (1 source) Penicillin Drug Allergy [facility] (20 sources) Penicillin G Drug Allergy 4 [facility] Work Phone: (20 sources) Penicillins; Translations: [PENICILLINS] Drug Allergy 4 [facility] (2 sources) Penicillins Propensity to adverse reactions to drug 4 [facility] Medications Current Medications Medication Drug Class(es) Dates Sig (Normalized) Sig (Original) clindamycin 300 mg oral capsule (8 sources) Lincosamide Antibacterial Start: 08-01-2024 End: 08-11-2024 [...] omeprazole 20 mg delayed release oral capsule (20 sources) Proton Pump Inhibitor Start: 06-27-2024 End: 06-27-2025 take 1 capsule by mouth before mealtime omeprazole (PriLOSEC) [address] capsule Indications: Heartburn during in third trimester Take 1 capsule (20 mg) by mouth in the morning. Take before meals. Do not crush or chew.. 30 capsule 06/27/2024 06/27/2025 Active [id number] fumarate-FA 28-800 mg-mcg tablet (2 sources) take 1 tablet by mouth in the morning [id number] fumarate-FA 28-800 mg-mcg tablet Take 1 tablet [...] daily as needed for nausea.. 90 tablet 06/27/2024 07/11/2024 Discontinued (Other) Problems Active Problems [...] [38 weeks gestation of ] 08-01-2024 Episodic Residual codes; unclassified (2 sources) Gestation period, 39 weeks; Translations: [39 weeks gestation of ] 08-08-2024 Episodic Unclassified (20 sources) OB Reminders Onset: [...] WITH AUTO DIFFon BASOPHILS ABSOLUTE AUTO 0.1 [facility] Basophils/100 WBC (Bld) 0.6 % 0.2 - 2.0 % [facility] Eosinophils/100 WBC (Bld) 2.1 % 0.9 - 7.0 % [facility] Erythrocyte distribution width (RBC) [Ratio] 14.2 % 11.0 - 15.0 % [facility] Hematocrit (Bld) [Volume fraction] 35.8 % Low 36.0 - 48.0 % [facility] Hemoglobin (Bld) [Mass/Vol] 11.8 g/dL Low 12.0 - 16.0 g/dL [facility] IMMATURE GRANULOCYTES ABS AUTO 0.14 High [facility] Immature granulocytes/100 WBC (Bld) 1 % High 0.0 - 0.5 % [facility] Interpretation and review of laboratory results Abnormal [facility] LYMPHOCYTES ABSOLUTE AUTO 2.8 [facility] Lymphocytes/100 WBC (Bld) 20 % Low 20.5 - 60.0 % [facility] MCH (RBC) [Entitic mass] 29.9 pg 26.7 - 34.0 pg [facility] MCHC (RBC) [Mass/Vol] 33 g/dL 29.9 - 35.2 g/dL [facility] MCV (RBC) [Entitic vol] 90.9 fL 81.0 - 99.0 fL [facility] MONOCYTES ABSOLUTE AUTO 1 High [facility] Monocytes/100 WBC (Bld) 7.5 % 1.7 - 12.0 % [facility] NEUTROPHILS ABSOLUTE AUTO 9.6 High [facility] Neutrophils/100 WBC (Bld) 68.8 % 43.0 - 75.0 % [facility] Platelet mean volume (Bld) [Entitic vol] 9.6 fL 9.5 - 13.5 fL [facility] TBH EO # 0.3 [facility] TB PLT 233 [facility] RBC 3.94 Low [facility] WBC 13.9 High [facility] WITH PLATELET NO DI FFERENTIALon 08-08-2024 Erythrocyte distribution width (RBC) [Ratio] 14.1 % 11.0 - 15.0 % [facility] Hematocrit (Bld) [Volume fraction] 39.2 % 36.0 - 48.0 % [facility] Hemoglobin (Bld) [Mass/Vol] 12.8 g/dL 12.0 - 16.0 g/dL [facility] Interpretation and review of laboratory results Abnormal [facility] MCH (RBC) [Entitic mass] 29.8 pg 26.7 - 34.0 pg [facility] MCHC (RBC) [Mass/Vol] 32.7 g/dL 29.9 - 35.2 g/dL [facility] MCV (RBC) [Entitic vol] 91.4 fL 81.0 - 99.0 fL [facility] Platelet mean volume (Bld) [Entitic vol] 10.5 fL 9.5 - 13.5 fL [facility] TB PLT 278 [facility] RBC 4.29 [facility] WBC 12.5 High [facility] Urinalysis macro (dipstick) panel (U)on 08-08-2024 Bilirubin, UA Negative Negative - 4(70) +++ mg/dL [facility] Blood, UA Negative Negative - 50 Grey/mcL [facility] Clarity, UA Clear [facility] Color, UA Yellow [facility] Glucose, UA Negative Negative - 1999(110) ++++ mg/dL [facility] Interpretation and review of laboratory results Abnormal [facility] Ketones, UA Positive Negative - 160(16) ++++ mg/dL [facility] Comment on above: trace Leukocytes, UA Negative Negative - 500+++ Juan Alberto/mcL [facility] Nitrite, UA Negative Negative - Positive [facility] pH, UA 6.5 5 - 9 [facility] Protein, UA Trace Negative - 2000(20) ++++ mg/dL [facility] Spec Grav, UA 1.025 1 - 1.03 [facility] Urobilinogen, UA 0.2 0.2 - 12 mg/dL [facility] TB UA (CLEAN/CATCH) VEST BASTER/BERTRAND RO IF IND.on 08-06-2024 BILIRUBIN URINE Negative NEGATIVE [facility] BLOOD URINE Negative NEGATIVE [facility] Clarity (U) CLEAR CLEAR [facility] Color (U) LT. YELLOW YELLOW [facility] GLUCOSE URINE UA Negative NEGATIVE mg/dL [facility] Interpretation and review of laboratory results Abnormal [facility] Ketones Ql (U) Negative NEGATIVE mg/dL [facility] Leukocyte esterase Test strip Ql (U) Negative NEGATIVE [facility] NITRITE URINE Negative NEGATIVE [facility] pH (U) 6.0 [pH] 5.0 - 9.0 [facility] PROTEIN URINE Negative NEG/TRACE mg/dL [facility] SPECIFIC GRAVITY URINE <=1.005 Abnormal 1.005 - 1.025 [facility] URINE MICROSCOPIC INDICATED NO [facility] UROBILINOGEN URINE 0.2 EU/dL 0.2 - 1.0 EU/dL [facility] Urinalysis macro (dipstick) panel (U)on 07-24-2024 Bilirubin, UA Negative Negative - 4(70) +++ mg/dL [facility] Blood, UA Positive Negative - 50 Grey/mcL [facility] Clarity, UA Cloudy [facility] Color, UA Yellow [facility] Glucose, UA Negative Negative - 1999(110) ++++ mg/dL [facility] Interpretation and review of laboratory results Abnormal [facility] Ketones, UA Negative Negative - 160(16) ++++ mg/dL [facility] Leukocytes, UA Positive Negative - 500+++ Juan Alberto/mcL [facility] Nitrite, UA Negative Negative - Positive [facility] pH, UA 7 5 - 9 [facility] Protein, UA Negative Negative - 1999(20) ++++ mg/dL [facility] Spec Grav, UA 1.015 1 - 1.03 [facility] Urobilinogen, UA 0.2 0.2 - 12 mg/dL [facility] ALL MISCELLANEOUS TESTon MISCELLANEOUS TEST COMMENT . [facility] Comment on above: Test Ordered: [id number] Strep Gp B Culture+Rflx Strep Gp B Culture+Rflx Negative CB Reference Range: Negative Centers for Disease Control and Prevention (CDC) and [place] [employer] Gynec[employer] (ACOG) guidelines [...] resistance to clindamycin is noted. Performed at: [address] [id number] Environmental Change Analyst: Alex Montes De Oca PhD, Phone: [phone] GROUP B STREP [id number] Group B Streptococcus Colonization Detection Culture With Re [facility] Urinalysis macro (dipstick) panel (U)on 07-18-2024 Bilirubin, UA Negative Negative - 4(70) +++ mg/dL [facility] Blood, UA Negative Negative - 50 Grey/mcL [facility] Clarity, UA Clear [facility] Color, UA Yellow [facility] Glucose, UA Negative Negative - 1999(110) ++++ mg/dL [facility] Interpretation and review of laboratory results Abnormal [facility] Ketones, UA Positive Negative - 160(16) ++++ mg/dL [facility] Comment on above: trace Leukocytes, UA Positive Negative - 500+++ Juan Alberto/mcL [facility] Comment on above: small Nitrite, UA Negative Negative - Positive [facility] pH, UA 7 5 - 9 [facility] Protein, UA Negative Negative - 2000(20) ++++ mg/dL [facility] Spec Grav, UA 1.015 1 - 1.03 [facility] Urobilinogen, UA 1.0 0.2 - 12 mg/dL [facility] TBH UA (CLEAN/CATCH) VEST BASTER/BERTRAND RO IF IND.on 07-16-2024 BILIRUBIN URINE Negative NEGATIVE [facility] BLOOD URINE Negative NEGATIVE [facility] Clarity (U) CLEAR CLEAR [facility] Color (U) LT. YELLOW YELLOW [facility] GLUCOSE URINE UA Negative NEGATIVE mg/dL [facility] Interpretation and review of laboratory results Abnormal [facility] Ketones Ql (U) Negative NEGATIVE mg/dL [facility] Leukocyte esterase Test strip Ql (U) Negative NEGATIVE [facility] NITRITE URINE Negative NEGATIVE [facility] pH (U) 6.5 [pH] 5.0 - 9.0 [facility] PROTEIN URINE Negative NEG/TRACE mg/dL [facility] SPECIFIC GRAVITY URINE <=1.005 Abnormal 1.005 - 1.025 [facility] URINE MICROSCOPIC INDICATED NO [facility] UROBILINOGEN URINE 0.2 EU/dL 0.2 - 1.0 EU/dL [facility] Urinalysis macro (dipstick) panel (U)on 07-11-2024 Bilirubin, UA Negative Negative - 4(70) +++ mg/dL [facility] Blood, UA Negative Negative - 50 Grey/mcL [facility] Clarity, UA Clear [facility] Color, UA Yellow [facility] Glucose, UA Negative Negative - 1999(110) ++++ mg/dL [facility] Interpretation and review of laboratory results Abnormal [facility] Ketones, UA Positive Negative - 160(16) ++++ mg/dL [facility] Leukocytes, UA Negative Negative - 500+++ Juan Alberto/mcL [facility] Nitrite, UA Negative Negative - Positive [facility] pH, UA 6 5 - 9 [facility] Protein, UA Negative Negative - 1999(20) ++++ mg/dL [facility] Spec Grav, UA 1.03 1 - 1.03 [facility] Urobilinogen, UA 0.2 0.2 - 12 mg/dL [facility] Urinalysis macro (dipstick) panel (U)on 06-27-2024 Bilirubin, UA Negative Negative - 4(70) +++ mg/dL [facility] Blood, UA Negative Negative - 50 Grey/mcL [facility] Clarity, UA Clear [facility] Color, UA Yellow [facility] Glucose, UA Negative Negative - 1999(110) ++++ mg/dL [facility] Interpretation and review of laboratory results Abnormal [facility] Ketones, UA Positive Negative - 160(16) ++++ mg/dL [facility] Comment on above: 15 Leukocytes, UA Negative Negative - 500+++ Juan Alberto/mcL [facility] Nitrite, UA Negative Negative - Positive [facility] pH, UA 6.5 5 - 9 [facility] Protein, UA Trace Negative - 1999(20) ++++ mg/dL [facility] Spec Grav, UA 1.02 1 - 1.03 [facility] Urobilinogen, UA 2.0 0.2 - 12 mg/dL [facility] Urinalysis macro (dipstick) panel (U)on 06-06-2024 Bilirubin, UA Negative Negative - 4(70) +++ mg/dL [facility] Blood, UA Negative Negative - 50 Grey/mcL [facility] Clarity, UA Clear [facility] Color, UA Yellow [facility] Glucose, UA Negative Negative - 1999(110) ++++ mg/dL [facility] Interpretation and review of laboratory results Abnormal [facility] Ketones, UA Negative Negative - 160(16) ++++ mg/dL [facility] Leukocytes, UA Trace Negative - 500+++ Juan Alberto/mcL [facility] Nitrite, UA Negative Negative - Positive [facility] pH, UA 7 5 - 9 [facility] Protein, UA Negative Negative - 1999(20) ++++ mg/dL [facility] Spec Grav, UA 1.015 1 - 1.03 [facility] Urobilinogen, UA 0.2 0.2 - 12 mg/dL [facility] Urinalysis macro (dipstick) panel (U)on 05-21-2024 Bilirubin, UA Negative Negative - 4(70) +++ mg/dL [facility] Blood, UA Negative Negative - 50 Grey/mcL [facility] Clarity, UA Clear [facility] Color, UA Yellow [facility] Glucose, UA Negative Negative - 1999(110) ++++ mg/dL [facility] Interpretation and review of laboratory results Normal [facility] Ketones, UA Negative Negative - 160(16) ++++ mg/dL [facility] Leukocytes, UA Negative Negative - 500+++ Juan Alberto/mcL [facility] Nitrite, UA Negative Negative - Positive [facility] pH, UA 6 5 - 9 [facility] Protein, UA Negative Negative - 1999(20) ++++ mg/dL [facility] Spec Grav, UA 1.025 1 - 1.03 [facility] Urobilinogen, UA 0.2 0.2 - 12 mg/dL [facility] Urinalysis macro (dipstick) panel (U)on 05-07-2024 Bilirubin, UA Negative Negative - 4(70) +++ mg/dL [facility] Blood, UA Negative Negative - 50 Grey/mcL [facility] Clarity, UA Clear [facility] Color, UA Yellow [facility] Glucose, UA Negative Negative - 1999(110) ++++ mg/dL [facility] Interpretation and review of laboratory results Normal [facility] Ketones, UA Negative Negative - 160(16) ++++ mg/dL [facility] Leukocytes, UA Negative Negative - 500+++ Juan Alberto/mcL [facility] Nitrite, UA Negative Negative - Positive [facility] pH, UA 5 5 - 9 [facility] Protein, UA Negative Negative - 1999(20) ++++ mg/dL [facility] Spec Grav, UA 1.02 1 - 1.03 [facility] Urobilinogen, UA 0.2 0.2 - 12 mg/dL [facility] GLUCOSE TOLERANCE 3 HOURon 07-05-2023 GLUCOSE TOLERANCE 3 HOUR High mg/dL [facility] Comment on above: GLU FAST 86 (<95) Co l: 05/05/24 0808 GLU 1HR 181H (<180) Col: 05/05/24 0912 GLU 2HR 135 (<155) Col: 05/05/24 1012 GLU 3HR 125 (<140) Col: 05/05/24 1112 Interpretation and review of laboratory results Abnormal [facility] ALL CBC WITH AUTO DIFFon BASOPHILS ABSOLUTE AUTO 0.1 [facility] Basophils/100 WBC (Bld) 0.5 % 0.2 - 2.0 % [facility] Eosinophils/100 WBC (Bld) 1.6 % 0.9 - 7.0 % [facility] Erythrocyte distribution width (RBC) [Ratio] 12.9 % 11.0 - 15.0 % [facility] Hematocrit (Bld) [Volume fraction] 37.9 % 36.0 - 48.0 % [facility] Hemoglobin (Bld) [Mass/Vol] 12.5 g/dL 12.0 - 16.0 g/dL [facility] IMMATURE GRANULOCYTES ABS AUTO 0.23 High [facility] Immature granulocytes/100 WBC (Bld) 1.8 % High 0.0 - 0.5 % [facility] Interpretation and review of laboratory results Abnormal [facility] LYMPHOCYTES ABSOLUTE AUTO 2.1 [facility] Lymphocytes/100 WBC (Bld) 17 % Low 20.5 - 60.0 % [facility] MCH (RBC) [Entitic mass] 31.5 pg 26.7 - 34.0 pg [facility] MCHC (RBC) [Mass/Vol] 33 g/dL 29.9 - 35.2 g/dL [facility] MCV (RBC) [Entitic vol] 95.5 fL 81.0 - 99.0 fL [facility] MONOCYTES ABSOLUTE AUTO 0.9 High [facility] Monocytes/100 WBC (Bld) 6.8 % 1.7 - 12.0 % [facility] NEUTROPHILS ABSOLUTE AUTO 9.1 High [facility] Neutrophils/100 WBC (Bld) 72.3 % 43.0 - 75.0 % [facility] Platelet mean volume (Bld) [Entitic vol] 9.5 fL 9.5 - 13.5 fL [facility] TBH EO # 0.2 [facility] TBH PLT 244 [facility] TB RBC 3.97 Low [facility] WBC 12.6 High [facility] Urinalysis macro (dipstick) panel (U)on 04-03-2024 Bilirubin, UA Negative Negative - 4(70) +++ mg/dL [facility] Blood, UA Negative Negative - 50 Grey/mcL [facility] Clarity, UA Clear [facility] Color, UA Yellow [facility] Glucose, UA Negative Negative - 1999(110) ++++ mg/dL [facility] Interpretation and review of laboratory results Normal [facility] Ketones, UA Negative Negative - 160(16) ++++ mg/dL [facility] Leukocytes, UA Negative Negative - 500+++ Juan Alberto/mcL [facility] Nitrite, UA Negative Negative - Positive [facility] pH, UA 6.5 5 - 9 [facility] Protein, UA Negative Negative - 1999(20) ++++ mg/dL [facility] Spec Grav, UA 1.02 1 - 1.03 [facility] Urobilinogen, UA 0.2 0.2 - 12 mg/dL [facility] AFP, SERUM, OPEN SPINA BIFID Aon 03-31-2024 AFP MOM 1.42 . [facility] AFP VALUE 88.7 ng/mL . [facility] COMMENT: Comment . [facility] Comment on above: Radha Viveros , Ph.D., [facility] Director References: Available Upon Request. Multiples Of Median Cutoffs For AFP Elevations Ricardo 2.5 Black 2.8 IDD 2.0 Twins 4.5 Abbreviation Definitions IDD - Insulin Dep Diabetes OSBR - Open Spina Bifida Risk For further inquiries contact [facility] at [phone]. This test was developed and its performance characteristics determined by [employer]. It has not been cleared or approved by the Food and Drug Administration. Performed at: [facility] [address]P [address] [facility], [place], [place] [id number] Environmental Change Analyst: Priya Jung [facility], Phone: [phone] GEST. AGE ON COLLECTION DATE 20.4 . weeks [facility] GESTAT. AGE BASED ON As provided . [facility] Comment on above: Recalculations are n ot recommended when gestational dating by LMP and ultrasound are within 10 days. INSULIN DEP DIABETES No . [facility] INTERPRETATION Comment . [facility] Comment on above: Interpretation: Scre en Negative [...] Customer Services to discuss available options. The [place] [employer] recommends amniocentesis be offered to women age 35 and older. [age] [facility] MULTIPLE GESTATION No . [facility] OSBR RISK 1 IN 3404 . [facility] RACE . [facility] RESULTS Report . [facility] TEST RESULTS: Negative . [facility] WEIGHT 137 . lbs [facility] N N [id number] 1 17 N 1 Y 137 N N N N N White/ [facility] IGP,APTIMA HPV,AGE GDLNon AGE GDLN ACOG TESTING Note . [facility] Comment on above: TESTS RESULT FLAG U NITS REF RANGE LAB Clinician Provided Cytology Information Source.............Cervix Other.............. No. of containers..01 ThinPrep Vial Age Diego BRUNER Martha... 30-65 FLAG LEGEND: L-Low Normal,H-High Normal,LL-Alert Low,HH-Alert High <-Panic Low,>-Panic High,A-Abnormal,AA-Critical Abnormal Performed at: 01 =[address] [address] Deysi Tidwell MD, HPV APTIMA Negative Negative [facility] Comment on above: This nucleic acid am plification test detects fourteen high- risk HPV types (16,18,31,33,35,39,45,51,52,56,58,59,66,68) without differentiation. Performed at: =[address] [id number] Environmental Change Analyst: Deysi Tidwell MD, Phone: [phone] Performed at: [address] [id number] Environmental Change Analyst: Deysi Tidwell MD, Phone: [phone] IGP, APTIMA HPV, RFX 16/18,45 Note . [facility] Comment on above: TESTS RESULT FLAG UN ITS REF RANGE LAB DIAGNOSIS: 02 NEGATIVE FOR INTRAEPITHELIAL LESION OR MALIGNANCY. Specimen adequacy: 02 Satisfactory for evaluation. Endocervical and/or squamous metaplastic cells (endocervical component) are present. Performed by: Alina Muniz, Fixed Route Bus Operator (ASCP) . 02 Note: Note 02 The [...] <-Panic Low,>-Panic High,A-Abnormal,AA-Critical Abnormal Performed at: [address] [phone] Deysi Tidwell MD, SPATULA-ALONE CERVIX [facility] URETHRITIS/DISCHARGE PLUS VA GINITIS (HTRX)on 03-07-2024 ATOPOBIUM VAGINAE 29.123 Abnormal [facility] ATOPOBIUM VAGINAE Detected Abnormal [facility] BVAB 2,3 (BACTERIAL VAGINOSIS ASSOCIATED BACTERIA 2, 3); MOBILUNCUS SPP 0.000 [facility] BVAB 2,3 (BACTERIAL VAGINOSIS ASSOCIATED BACTERIA 2, 3); MOBILUNCUS SPP Not detected [facility] TAMIR ALBICANS, PARAPSILOSIS, TROPICALIS 0.000 [facility] TAMIR ALBICANS, PARAPSILOSIS, TROPICALIS Not detected [facility] TAMIR GLABRATA 0.000 [facility] TAMIR GLABRATA Not detected [facility] TAMIR KRUSEI 0.000 [facility] TAMIR KRUSEI Not detected [facility] CHLAMYDIA TRACHOMATIS 0.000 [facility] CHLAMYDIA TRACHOMATIS Not detected [facility] GARDNERELLA VAGINALIS 0.000 [facility] GARDNERELLA VAGINALIS Not detected [facility] Interpretation and review of laboratory results Abnormal [facility] MEGASPHAERA (TYPES 1, 2) 0.000 [facility] MEGASPHAERA (TYPES 1, 2) Not detected [facility] MYCOPLASMA GENITALIUM 0.000 [facility] MYCOPLASMA GENITALIUM Not detected [facility] NEISSERIA GONORRHOEAE 0.000 [facility] NEISSERIA GONORRHOEAE Not detected [facility] TRICHOMONAS VAGINALIS 0.000 [facility] TRICHOMONAS VAGINALIS Not detected [facility] Cytology Cervical or vaginal smear or scraping studyon 03-05-2024 [facility] Urinalysis macro (dipstick) panel (U)on 03-05-2024 Bilirubin, UA Negative Negative - 4(70) +++ mg/dL [facility] Blood, UA Negative Negative - 50 Grey/mcL [facility] Clarity, UA Clear [facility] Color, UA Yellow [facility] Glucose, UA Negative Negative - 1999(110) ++++ mg/dL [facility] Interpretation and review of laboratory results Normal [facility] Ketones, UA Negative Negative - 160(16) ++++ mg/dL [facility] Leukocytes, UA Negative Negative - 500+++ Juan Alberto/mcL [facility] Nitrite, UA Negative Negative - Positive [facility] pH, UA 6.5 5 - 9 [facility] Protein, UA Negative Negative - 1999(20) ++++ mg/dL [facility] Spec Grav, UA 1.020 1 - 1.03 [facility] Urobilinogen, UA 1.0 0.2 - 12 mg/dL [facility] Urinalysis macro (dipstick) panel (U)on 02-06-2024 Bilirubin, UA Negative Negative - 4(70) +++ mg/dL [facility] Blood, UA Negative Negative - 50 Grey/mcL [facility] Clarity, UA Clear [facility] Color, UA Yellow [facility] Glucose, UA Negative Negative - 1999(110) ++++ mg/dL [facility] Interpretation and review of laboratory results Normal [facility] Ketones, UA Negative Negative - 160(16) ++++ mg/dL [facility] Leukocytes, UA Negative Negative - 500+++ Juan Alberto/mcL [facility] Nitrite, UA Negative Negative - Positive [facility] pH, UA 7.0 5 - 9 [facility] Protein, UA Negative Negative - 2000(20) ++++ mg/dL [facility] Spec Grav, UA 1.015 1 - 1.03 [facility] Urobilinogen, UA 0.2 0.2 - 12 mg/dL [facility] CBC without diffon Hematocrit (Bld) [Volume fraction] 40.3 % [facility] Hemoglobin (Bld) [Mass/Vol] 13.3 g/dL [facility] Platelets (Bld) [#/Vol] 329 10*3/uL [facility] Rbc Mcv (Fl) By Automated Count 93.3 [facility] Chlamydia/GC by PCR Mariaa Sw abon 01-27-2024 Chlamydia Dna(Pcr) Not detected [facility] Gonorrhoeae Dna(Pcr) Not detected Pr [facility] HIV 1&2 AB/AG Screen (P24 AG )on 01-27-2024 HIV 1&2 AB/AG Non-Reactive [facility] Hepatitis B surface antigeno n 01-27-2024 Hepatitis B Surface Antigen Negative [facility] Hepatitis C(HCV) Ab w/ Refle x to PCRon 01-27-2024 HCV Ab Ql (S) non reacitve [facility] No Panel Informationon 01-26 [facility] Rubella IGG immune statuson 01-27-2024 Rubella immune IgG 9.62 [facility] Syphilis Total(Unknown Syphi lis Status)on 01-27-2024 Syphilis Non-Reactive [facility] System Type and screenon 01-27-2024 Abo/Rh(D) Positive [facility] LIPID PROFILEon 03-29-2022 CHOL-HDL RATIO NORM SEE BELOW Normal [facility] Comment on above: Result Comment: 3.3 - 4.4 LOW RISK 4.4 - 7.1 AVERAGE RISK 7.1 - 11.0 MODERATE RISK >11.0 HIGH RISK Performed By: #### L IPID #### [facility] [address] [place] [address] Dr. Parth Lucero Cholesterol [Mass/Vol] 197 mg/dL Normal <=200 [facility] Comment on above: Performed By: #### L IPID #### [facility] [address] [address] [address] Parth Lucero Cholesterol in HDL [Mass/Vol] 66 mg/dL Critically high 40-60 [facility] Comment on above: Performed By: #### L IPID #### [facility] [address] [address] [address] Parth Lucero Cholesterol in LDL [Mass/Vol] 120.0 mg/dL Normal [facility] Comment on above: Performed By: #### L IPID #### [facility] [address] [address] [address] Parth Lucero Cholesterol.total/Ch olesterol in HDL [Mass ratio] 3.0 {ratio} Normal [facility] Comment on above: Performed By: #### L IPID #### [facility] [address] [address] [address] Parth Lucero HDL NORMAL > or = 60 mg/dl - LO W CARDIOVASCULAR RISK <40 mg/dl - HIGH CARDIOVASCULAR RISK Normal [facility] Comment on above: Performed By: #### L IPID #### [facility] [address] [address] [address] Parth Lucero LDL CALC NORMAL SEE BELOW Normal [facility] Comment on above: Result Comment: <100 mg/dl OPTIMAL 100 - 129 mg/dl NEAR OR ABOVE OPTIMAL 130 - 159 mg/dl BORDERLINE HIGH 160 - 189 mg/dl HIGH >190 mg/dl VERY HIGH Performed By: #### L IPID #### [facility] [address] [address] [address] Parth Lucero Triglyceride [Mass/Vol] 55 mg/dL Normal <=150 [facility] Comment on above: Performed By: #### L IPID #### [facility] [address] [place] [address] Dr. Parth Lucero VLDL CALC 11.0 mg/dL Normal [facility] Comment on above: Performed By: #### L IPID #### [facility] [address] [address] [address] Parth Lucero CBC AUTO DIFFon 01-08-2022 BASO # 0.0 103/ul Normal 0.0-0.1 [facility] Comment on above: Performed By: #### [id number] #### [facility] [address] [place] [address] Dr. Parth Lucero Basophils/100 WBC (Bld) 0.3 % Normal 0.2-2.0 [facility] Comment on above: Performed By: #### [id number] #### [facility] [address] [place] [address] Dr. Parth Lucero EO # 0.1 103/ul Normal 0.0-0.7 [facility] Comment on above: Performed By: #### [id number] #### [facility] [facility] [address] [place] [address] Dr. Parth Lucero Eosinophils/100 WBC (Bld) 0.4 % Critically low 0.9-7.0 [facility] Comment on above: Performed By: #### [id number] #### [facility] [address] [place] [address] Dr. Parth Lucero Erythrocyte distribution width (RBC) [Ratio] 13.4 % Normal 11.0-15.0 [facility] Comment on above: Performed By: #### 4 [id number] #### [facility] [address] [place] [address] Dr. Parth Lucero Hematocrit (Bld) [Volume fraction] 36.0 % Normal 36.0-48.0 [facility] Comment on above: Performed By: #### 4 [id number] #### [facility] [address] [place] [address] Dr. Parth Lucero Hemoglobin (Bld) [Mass/Vol] 12.1 g/dL Normal 12.0-16.0 [facility] Comment on above: Performed By: #### [id number] #### [facility] [address] [place] [address] Dr. Parth Lucero IG # 0.10 10e3/ul Critically high 0.00-0.03 [facility] Comment on above: Performed By: #### 4 [id number] #### [facility] [address] [place] [address] Dr. Parth Lucero IG % 0.7 % Critically high 0.0-0.5 [facility] Comment on above: Performed By: #### 4 [id number] #### [facility] [address] [place] [address] Dr. Parth Lucero LYMPH # 2.1 103/ul Normal 1.2-3.8 [facility] Comment on above: Performed By: #### 4 [id number] #### [facility] [address] [place] [address] Dr. Parth Lucero Lymphocytes/100 WBC (Bld) 14.0 % Critically low 20.5-60.0 [facility] Comment on above: Performed By: #### 4 [id number] #### [facility] [address] [place] [address] Dr. Parth Lucero MANUAL DIFF REQ NO Normal [facility] Comment on above: Performed By: #### 4 [id number] #### [facility] [address] [place] [address] Dr. Parth Lucero MCH (RBC) [Entitic mass] 31.0 pg Normal 26.7-34.0 [facility] Comment on above: Performed By: #### 4 [id number] #### [facility] [address] [place] [address] Dr. Parth Lucero MCHC (RBC) [Mass/Vol] 33.6 g/dL Normal 29.9-35.2 [facility] Comment on above: Performed By: #### 4 [id number] #### [facility] [address] [place] [address] Dr. Parth Lucero MCV (RBC) [Entitic vol] 92.3 fL Normal 81.0-99.0 [facility] Comment on above: Performed By: #### 4 [id number] #### [facility] [address] [place] [address] Dr. Parth Lucero MONO # 1.2 103/ul Critically high 0.3-0.8 [facility] Comment on above: Performed By: #### 4 [id number] #### [facility] [address] [address] [address] Parth Lucero Monocytes/100 WBC (Bld) 7.7 % Normal 1.7-12.0 [facility] Comment on above: Performed By: #### 4 [id number] #### [facility] [address] [address] [address] Parth Lucero NEUT # 11.7 103/ul Critically high 1.4-6.5 [facility] Comment on above: Performed By: #### 4 [id number] #### [facility] [address] [place] [address] Dr. Parth Lucero Neutrophils/100 WBC (Bld) 76.9 % Critically high 43.0-75.0 [facility] Comment on above: Performed By: #### 4 [id number] #### [facility] [address] [place] [address] Dr. Parth Lucero Platelet mean volume (Bld) [Entitic vol] 10.0 fL Normal 9.5-13.5 [facility] Comment on above: Performed By: #### 4 [id number] #### [facility] [address] [place] [address] Dr. Parth Lucero PLT 231 103/ul Normal 150-450 [facility] Comment on above: Performed By: #### 4 [id number] #### [facility] [address] [place] [address] Dr. Parth Lucero RBC 3.90 106/ul Critically low 4.20-5.40 [facility] Comment on above: Performed By: #### 4 [id number] #### [facility] [address] [place] [address] Dr. Parth Lucero WBC 15.2 103/ul Critically high 4.0-11.[address] [facility] Comment on above: Performed By: #### 4 [id number] #### [facility] [address] [place] [address] Dr. Parth Lucero CBC AUTO DIFFon 01-07-2022 BASO # 0.0 103/ul Normal 0.0-0.1 [facility] Comment on above: Performed By: #### C BC #### [facility] [address] [address] [address] Parth Lucero Basophils/100 WBC (Bld) 0.4 % Normal 0.2-2.0 [facility] Comment on above: Performed By: #### C BC #### [facility] [address] [address] [address] Parth Lucero EO # 0.1 103/ul Normal 0.0-0.7 [facility] Comment on above: Performed By: #### C BC #### [facility] [address] [address] [address] Parth Lucero Eosinophils/100 WBC (Bld) 1.1 % Normal 0.9-7.0 [facility] Comment on above: Performed By: #### C BC #### [facility] [address] [place] [address] Dr. Parth Lucero Erythrocyte distribution width (RBC) [Ratio] 13.3 % Normal 11.0-15.0 [facility] Comment on above: Performed By: #### C BC #### [facility] [address] [place] [address] Dr. Parth Lucero Hematocrit (Bld) [Volume fraction] 39.2 % Normal 36.0-48.0 [facility] Comment on above: Performed By: #### C BC #### [facility] [address] [place] [address] Dr. Parth Lucero Hemoglobin (Bld) [Mass/Vol] 13.3 g/dL Normal 12.0-16.0 [facility] Comment on above: Performed By: #### C BC #### [facility] [address] [place] [address] Dr. Parth Lucero IG # 0.10 10e3/ul Critically high 0.00-0.03 [facility] Comment on above: Performed By: #### C BC #### [facility] [address] [address] [address] Parth Lucero IG % 1.0 % Critically high 0.0-0.5 [facility] Comment on above: Performed By: #### C BC #### [facility] [address] [address] [address] Parth Lucero LYMPH # 1.8 103/ul Normal 1.2-3.8 [facility] Comment on above: Performed By: #### C BC #### [facility] [address] [address] [address] Parth Lucero Lymphocytes/100 WBC (Bld) 18.0 % Critically low 20.5-60.0 [facility] Comment on above: Performed By: #### C BC #### [facility] [address] [place] [address] Dr. Parth Lucero MANUAL DIFF REQ NO Normal [facility] Comment on above: Performed By: #### C BC #### [facility] [address] [place] [address] Dr. Parth Lucero MCH (RBC) [Entitic mass] 31.1 pg Normal 26.7-34.0 [facility] Comment on above: Performed By: #### C BC #### [facility] [address] [place] [address] Dr. Parth Lucero MCHC (RBC) [Mass/Vol] 33.9 g/dL Normal 29.9-35.2 [facility] Comment on above: Performed By: #### C BC #### [facility] [address] [place] [address] Dr. Parth Lucero MCV (RBC) [Entitic vol] 91.8 fL Normal 81.0-99.0 [facility] Comment on above: Performed By: #### C BC #### [facility] [address] [place] [address] Dr. Parth Lucero MONO # 1.1 103/ul Critically high 0.3-0.8 [facility] Comment on above: Performed By: #### C BC #### [facility] [address] [place] [address] Dr. Parth Lucero Monocytes/100 WBC (Bld) 11.3 % Normal 1.7-12.0 [facility] Comment on above: Performed By: #### C BC #### [facility] [address] [address] [address] Parth Lucero NEUT # 6.9 103/ul Critically high 1.4-6.5 [facility] Comment on above: Performed By: #### C BC #### [facility] [address] [address] [address] Parth Lucero Neutrophils/100 WBC (Bld) 68.2 % Normal 43.0-75.0 [facility] Comment on above: Performed By: #### C BC #### [facility] [address] [place] [address] Dr. Parth Lucero Platelet mean volume (Bld) [Entitic vol] 10.6 fL Normal 9.5-13.5 [facility] Comment on above: Performed By: #### C BC #### [facility] [address] [place] [address] Dr. Parth Lucero PLT 258 103/ul Normal 150-450 [facility] Comment on above: Performed By: #### C BC #### [facility] [address] [place] [address] Dr. Parth Lucero RBC 4.27 106/ul Normal 4.20-5.40 [facility] Comment on above: Performed By: #### C BC #### [facility] [address] [place] [address] Dr. Parth Lucero WBC 10.1 103/ul Normal 4.0-11.0 [facility] Comment on above: Performed By: #### C BC #### [facility] [address] [place] [address] Dr. Parth Lucero Covid-19 PCR ([facility])on 12-19 SARS-CoV-2 (COVID-19) RNA RIGOBERTO+probe Ql (Unsp spec) Not detected Normal NOT DETECTED [facility] Comment on above: Result Comment: When diagnostic [...] for this test is supported by the [employer] of Health and Human Service's declaration that [...] longer be used). Performed By: #### 4 [id number] #### [facility] [address] [place] [address] Dr. Parth Lucero DRUG SCREEN RAPID (URINE)on 01-07-2022 AMP Negative Normal NEGATIVE [facility] Comment on above: Performed By: #### L IPID #### [facility] [address] [place] [address] Dr. Parth Lucero BAR Negative Normal NEGATIVE [facility] Comment on above: Performed By: #### L IPID #### [facility] [address] [place] [address] Dr. Parth Lucero BUP Negative Normal NEGATIVE [facility] Comment on above: Performed By: #### L IPID #### [facility] [address] [place] [address] Dr. Parth Lucero BZO Negative Normal NEGATIVE [facility] Comment on above: Performed By: #### L IPID #### [facility] [address] [place] [address] Dr. Parth Lucero AMINTA Negative Normal NEGATIVE [facility] Comment on above: Performed By: #### L IPID #### [facility] [address] [place] [address] Dr. Parth Lucero CUT-OFFS SEE BELOW Normal [facility] Comment on above: Result [...] ng/mL Performed By: #### L IPID #### [facility] [address] [place] [address] Dr. Parth Lucero DRUG CUT HEADER DRUG CLASS TEST SYSTEM CUT-OFF CONCENTRATIONS ARE FOLLOWS: Normal [facility] Comment on above: Performed By: #### L IPID #### [facility] [address] [place] [address] Dr. Parth Lucero mAMP Negative Normal NEGATIVE [facility] Comment on above: Performed By: #### L IPID #### [facility] [address] [place] [address] Dr. Parth Lucero MTD Negative Normal NEGATIVE [facility] Comment on above: Performed By: #### L IPID #### [facility] [address] [place] [address] Dr. Parth Lucero OPI Negative Normal NEGATIVE [facility] Comment on above: Performed By: #### L IPID #### [facility] [address] [place] [address] Dr. Parth Lucero OXY Negative Normal NEGATIVE [facility] Comment on above: Performed By: #### L IPID #### [facility] [address] [place] [address] Dr. Parth Lucero PCP Negative Normal NEGATIVE [facility] Comment on above: Performed By: #### L IPID #### [facility] [address] [place] [address] Dr. Parth Lucero PPX Negative Normal NEGATIVE [facility] Comment on above: Performed By: #### L IPID #### [facility] [address] [place] [address] Dr. Parth Lucero TCA Negative Normal NEGATIVE [facility] Comment on above: Performed By: #### L IPID #### [facility] [address] [place] [address] Dr. Parth Lucero THC Negative Normal NEGATIVE [facility] Comment on above: Performed By: #### L IPID #### [facility] [address] [place] [address] Dr. Parth Lucero TYPE AND SCREENon 01-07-2022 TYPE AND SCREEN Negative Normal [facility] Comment on above: Performed By: #### T NS #### [facility] [address] [place] [address] Dr. Parth Lucero GROUP B STREP CULTUREon 11-19 S. agalactiae Ag Ql (Unsp spec) Culture Observations: NEGATIVE FOR GROUP B STREPTOCOCCUS. Normal [facility] Comment on above: Performed By: #### 4 [id number] #### [facility] [address] [place] [address] Dr. Parth Lucero GTT 3 HR PREGon 2021 Glucose [Mass/Vol] 93 mg/dL Normal 74-106 [facility] Comment on above: Performed By: #### G TT3P #### [facility] [address] [place] [address] Dr. Parth Lucero Glucose [Mass/Vol] 173 mg/dL Normal [facility] Comment on above: Performed By: #### G TT3P #### [facility] [address] [place] [address] Dr. Parth Lucero Glucose [Mass/Vol] 149 mg/dL Normal [facility] Comment on above: Performed By: #### G TT3P #### [facility] [address] [place] [address] Dr. Parth Lucero Glucose [Mass/Vol] 128 mg/dL Normal [facility] Comment on above: Performed By: #### G TT3P #### [facility] [address] [place] [address] Dr. Parth Lucero GLUCOSE - 1HRon 10-09-2021 Glucose [Mass/Vol] 150 mg/dL Critically high 74-106 [facility] Comment on above: Performed By: #### G LU1HR #### [facility] [address] [place] [address] Dr. Parth Lucero HEMOGRAM AND PLATELon 2021 Hematocrit (Bld) [Volume fraction] 37.6 % Normal 36.0-48.0 [facility] Comment on above: Performed By: #### H H #### [facility] [address] [place] [address] Dr. Parth Lucero Hemoglobin (Bld) [Mass/Vol] 12.3 g/dL Normal 12.0-16.0 [facility] Comment on above: Performed By: #### H H #### [facility] [address] [place] [address] Dr. Parth Lucero MCH (RBC) [Entitic mass] 31.2 pg Normal 26.7-34.0 [facility] Comment on above: Performed By: #### H H #### [facility] [address] [place] [address] Dr. Parth Lucero MCHC (RBC) [Mass/Vol] 32.7 g/dL Normal 29.9-35.2 [facility] Comment on above: Performed By: #### H H #### [facility] [address] [place] [address] Dr. Parth Lucero MCV (RBC) [Entitic vol] 95.4 fL Normal 81.0-99.0 [facility] Comment on above: Performed By: #### H H #### [facility] [address] [place] [address] Dr. Parth Lucero PLT 240 103/ul Normal 150-450 [facility] Comment on above: Performed By: #### H H #### [facility] [address] [place] [address] Dr. Parth Lucero RBC 3.94 106/ul Critically low 4.20-5.40 [facility] Comment on above: Performed By: #### H H #### [facility] [address] [place] [address] Dr. Parth Lucero WBC 9.7 103/ul Normal 4.0-11.0 [facility] Comment on above: Performed By: #### H H #### [facility] [address] [place] [address] Dr. Parth Lucero PAP ACOG PANEL 2: 21 to 29on 09-02-2021 . . Normal [facility] Comment on above: Performed By: #### [id number] #### [facility] [address] [place] [address] Dr. Parth Lucero Age Gdln ACOG Testing - [facility] Comment on above: Performed By: #### 4 [id number] #### [facility] [address] [place] [address] Dr. Parth Lucero DIAGNOSIS: Comment [facility] Comment on above: Result Comment: NEGA TIVE FOR INTRAEPITHELIAL LESION OR MALIGNANCY. Performed By: #### 4 [id number] #### [facility] [address] [place] [address] Dr. Parth Lucero Methodology: Comment [facility] Comment on above: Result Comment: This liquid based ThinPrep(R) pap test was screened with the use of an image guided system. Performed By: #### 4 [id number] #### [facility] [address] [place] [address] Dr. Parth Lucero Note: Comment [facility] Comment on above: Result Comment: The Pap smear is a screening test designed to aid in the detection of premalignant and malignant conditions of the uterine cervix. It is not a diagnostic procedure and should not be used as the sole means of detecting cervical cancer. Both false-positive and false-negative reports do occur. . Performed By: #### 4 [id number] #### [facility] [address] [place] [address] Dr. Parth Lucero Performed by: Comment [facility] Comment on above: Result Comment: Vivian Paris, Fixed Route Bus Operator (ASCP) Performed By: #### 4 [id number] #### [facility] [address] [place] [address] Dr. Parth Lucero Reflex Criteria: Comment [facility] Comment on above: Result Comment: The HPV DNA reflex criteria were not met with this specimen result therefore, no HPV testing was performed. . Performed By: #### 4 [id number] #### [facility] [address] [address] [address] Parth Lucero Specimen adequacy: Comment Normal [facility] Comment on above: Result Comment: Sati sfactory for evaluation. No endocervical component is identified. Performed By: #### 4 [id number] #### [facility] [address] [id number] Parth Lucero US PREG ANATOMY SINGLEon [...] by ultrasound, 56% by expected EDC; FL/AC: 0.007814 FL/BPD: 0.038670 HC/AC: 1.084133 GESTATIONAL AGE: Age by EDC: 21 weeks 0 days ARMANI by EDC: 01/12/2022 Age by current US: 20 weeks 1 day ARMANI by current US: 01/11/2022 IMPRESSION: Normal anatomy scan *Reference: [employer] Practice Guideline for the performance of Obstetric Ultrasound Examinations, March 20, 2007. Electronically authenticated by: ALONSO SANDERS Date: 2021-09-01 16:20 Normal [facility] CHLAMYDIA/GONOCOCCUS RIGOBERTO (SW AB/URINE/PAPon 08-29-2021 Chlamydia trachomatis, RIGOBERTO Negative Normal Negative [facility] Comment on above: Performed By: #### L IPID #### [facility] [address] [address] [address] Parth Lucero Neisseria gonorrhoeae, RIGOBERTO Negative Normal Negative [facility] Comment on above: Performed By: #### L IPID #### [facility] [address] [address] [address] Parth Lucero AFP MATERNAL FOR SPINA BIFID Aon 08-18-2021 AFP MoM 1.13 Normal [facility] Comment on above: Performed By: #### 4 [id number] #### [facility] [address] [address] [address] Parth Lucero AFP Value 52.2 ng/mL Normal [facility] Comment on above: Performed By: #### 4 [id number] #### [facility] [address] [address] [address] Parth Lucero AFP, Serum for Spina Bifida Report Normal [facility] Comment on above: Performed By: #### 4 [id number] #### [facility] [address] [address] [address] Parth Lucero Comment Comment Normal [facility] Comment on above: Result Comment: Ruth Viveros, Ph.D., [facility] Director . References: Available Upon Request. . Multiples Of Median Cutoffs For AFP Elevations Ricardo 2.5 Black 2.8 IDD 2.0 Twins 4.5 Abbreviation Definitions IDD - Insulin Dep Diabetes OSBR - Open Spina Bifida Risk . For further inquiries contact [facility] at [phone]. Performed By: #### 4 [id number] #### [facility] [address] [place] [address] Dr. Parth Modi Age Collection Date 18.0 weeks Normal [facility] Comment on above: Performed By: #### 4 [id number] #### [facility] [address] [address] [address] Parth Lucero Gestat, Age Based on LMP Normal [facility] Comment on above: Result Comment: Reca lculations are not recommended when gestational dating by LMP and ultrasound are within 10 days. Performed By: #### 4 [id number] #### [facility] [address] [place] [address] Dr. Parth Lucero Insulin Dep Diabetes No Normal [facility] Comment on above: Performed By: #### 4 [id number] #### [facility] [address] [place] [address] Dr. Parth Lucero Interpretation Comment Normal [facility] Comment on above: Result [...] Customer Services to discuss available options. The [employer] recommends amniocentesis be offered to women age 35 and older. Performed By: #### 4 [id number] #### [facility] [address] [place] [address] Dr. Parth Lucero [age] Normal [facility] Comment on above: Performed By: #### 4 [id number] #### [facility] [address] [place] [address] Dr. Parth Lucero Multiple Gestation No Normal [facility] Comment on above: Performed By: #### 4 [id number] #### [facility] [address] [place] [address] Dr. Parth Lucero OSBR Risk 1 IN 8106 Normal [facility] Comment on above: Performed By: #### 4 [id number] #### [facility] [address] [place] [address] Dr. Parth Lucero PDF . Normal [facility] Comment on above: Result Comment: This test was developed and its performance characteristics determined by [employer]. It has not been cleared or approved by the Food and Drug Administration. Performed By: #### 4 [id number] #### [facility] [address] [place] [address] Dr. Parth Lucero Race Normal [facility] Comment on above: Performed By: #### 4 [id number] #### [facility] [address] [place] [address] Dr. Parth Lucero Test Results: Negative Normal [facility] Comment on above: Performed By: #### 4 [id number] #### [facility] [address] [place] [address] Dr. Parth Lucero HEP B SURFACE ANTIGEN SCREEN on 06-25-2021 HBsAg Screen Negative Normal Negative [facility] Comment on above: Performed By: #### H BSANS #### [facility] [address] [place] [address] Dr. Parth Lucero HEPATITIS C VIRUS AB W/ REFL EX QUANTon 06-25-2021 HCV AB <0.1 Normal 0.0-0.9 [facility] Comment on above: Performed By: #### 4 [id number] #### [facility] [address] [place] [address] Dr. Parth Lucero Interpretation: Comment Normal [facility] Comment on above: Result Comment: Nega tive Not infected with HCV, unless recent infection is suspected or other evidence exists to indicate HCV infection. Performed By: #### 4 [id number] #### [facility] [address] [place] [address] Dr. Parth Lucero HIV 1 AND 2 WITH REFLEXon HIV Screen 4th Generation wRfx Non-Reactive Normal Non Reactive [facility] Comment on above: Performed By: #### L IPID #### [facility] [address] [place] [address] Dr. Parth Lucero RPR QUANTon 06-25-2021 Rapid Plasma Reagin, Quant Non-Reactive Normal NonRea<1:1 [facility] Comment on above: Performed By: #### L IPID #### [facility] [address] [place] [address] Dr. Parth Lucero RUBELLA AB IGGon 06-25-2021 Rubella Antibodies, IgG 13.00 index Normal Immune >0.99 [facility] Comment on above: Result Comment: Non- immune <0.90 Equivocal 0.90 - 0.99 Immune >0.99 Performed By: #### 4 [id number] #### [facility] Laboratory [address] [place] [address] Dr. Parth Lucero CBC AUTO DIFFon 06-23-2021 BASO # 0.0 103/ul Normal 0.0-0.1 [facility] Comment on above: Performed By: #### L IPID #### [facility] [address] [place] [address] Dr. Parth Lucero Basophils/100 WBC (Bld) 0.3 % Normal 0.2-2.0 [facility] Comment on above: Performed By: #### L IPID #### [facility] [address] [place] [address] Dr. Parth Lucero EO # 0.1 103/ul Normal 0.0-0.7 [facility] Comment on above: Performed By: #### L IPID #### [facility] [address] [place] [address] Dr. Parth Lucero Eosinophils/100 WBC (Bld) 1.1 % Normal 0.9-7.0 [facility] Comment on above: Performed By: #### L IPID #### [facility] [address] [place] [address] Dr. Parth Lucero Erythrocyte distribution width (RBC) [Ratio] 12.7 % Normal 11.0-15.0 [facility] Comment on above: Performed By: #### L IPID #### [facility] [address] [place] [address] Dr. Parth Lucero Hematocrit (Bld) [Volume fraction] 38.2 % Normal 36.0-48.0 [facility] Comment on above: Performed By: #### L IPID #### [facility] [address] [place] [address] Dr. Parth Lucero Hemoglobin (Bld) [Mass/Vol] 13.0 g/dL Normal 12.0-16.0 [facility] Comment on above: Performed By: #### L IPID #### [facility] [address] [address] [address] Parth Lucero IG # 0.04 10e3/ul Critically high 0.00-0.03 [facility] Comment on above: Performed By: #### L IPID #### [facility] [address] [address] [address] Parth Lucero IG % 0.4 % Normal 0.0-0.5 [facility] Comment on above: Performed By: #### L IPID #### [facility] [address] [address] [address] Parth Lucero LYMPH # 2.3 103/ul Normal 1.2-3.8 [facility] Comment on above: Performed By: #### L IPID #### [facility] [address] [place] [address] Dr. Parth Lucero Lymphocytes/100 WBC (Bld) 23.8 % Normal 20.5-60.0 [facility] Comment on above: Performed By: #### L IPID #### [facility] [address] [place] [address] Dr. Parth Lucero MANUAL DIFF REQ NO Normal [facility] Comment on above: Performed By: #### L IPID #### [facility] [address] [place] [address] Dr. Parth Lucero MCH (RBC) [Entitic mass] 31.6 pg Normal 26.7-34.0 [facility] Comment on above: Performed By: #### L IPID #### [facility] [address] [address] [address] Parth Lucero MCHC (RBC) [Mass/Vol] 34.0 g/dL Normal 29.9-35.2 [facility] Comment on above: Performed By: #### L IPID #### [facility] [address] [place] [address] Dr. Parth Lucero MCV (RBC) [Entitic vol] 92.9 fL Normal 81.0-99.0 [facility] Comment on above: Performed By: #### L IPID #### [facility] [address] [address] [address] Parth Lucero MONO # 0.8 103/ul Normal 0.3-0.8 [facility] Comment on above: Performed By: #### L IPID #### [facility] [address] [place] [address] Dr. Parth Lucero Monocytes/100 WBC (Bld) 7.6 % Normal 1.7-12.0 [facility] Comment on above: Performed By: #### L IPID #### [facility] [address] [place] [address] Dr. Parth Lucero NEUT # 6.6 103/ul Critically high 1.4-6.5 [facility] Comment on above: Performed By: #### L IPID #### [facility] [address] [place] [address] Dr. Parth Lucero Neutrophils/100 WBC (Bld) 66.8 % Normal 43.0-75.0 [facility] Comment on above: Performed By: #### L IPID #### [facility] [address] [place] [address] Dr. Parth Lucero Platelet mean volume (Bld) [Entitic vol] 9.4 fL Critically low 9.5-13.5 [facility] Comment on above: Performed By: #### L IPID #### [facility] [address] [place], [place] [id number] Dr. Parth Lucero PLT 320 103/ul Normal 150-450 [facility] Comment on above: Performed By: #### L IPID #### [facility] [address] [place] [address] Dr. Parth Lucero RBC 4.11 106/ul Critically low 4.20-5.40 [facility] Comment on above: Performed By: #### L IPID #### [facility] [address] [place] [address] Dr. Parth Lucero WBC 9.8 103/ul Normal 4.0-11.0 [facility] Comment on above: Performed By: #### L IPID #### [facility] [address] [place] [address] Dr. Parth Lucero CULTURE URINEon 06-23-2021 CULTURE URINE Culture Observations : MODERATE GROWTH OF MIXED GENITAL BERNARDINO. NO POTENTIAL PATHOGENS SEEN. Normal [facility] Comment on above: Performed By: #### U RCX #### [facility] [address] [place] [address] Dr. Parth Lucero GLYCOHEMOGLOBIN A1Con 2021 ADA RECOMMENDATION ADA THERAPEUTIC TARGET 6.0 - 7.0 ACTION SUGGESTED > 7.0 Normal [facility] Comment on above: Performed By: #### A 1C #### [facility] [address] [place] [address] Dr. Parth Lucero Glucose [Mass/Vol] 105 mg/dL Normal [facility] Comment on above: Performed By: #### A 1C #### [facility] [address] [place] [address] Dr. Parth Lucero HbA1c (Bld) [Mass fraction] 5.3 % Normal <=6.0 [facility] Comment on above: Performed By: #### A 1C #### [facility] [address] [place] [address] Dr. Parth Lucero TAYLA BOX TEST PT SEND OUTo n 06-23-2021 SENT TO REF LAB 06/23/2021 Normal [facility] Comment on above: Performed By: #### [id number] #### [facility] [address] [place] [address] Dr. Parth Lucero TYPE AND SCREENon 06-23-2021 TYPE AND SCREEN Negative Normal [facility] Comment on above: Performed By: #### [id number] #### [facility] [address] [place] [address] Dr. Parht Lucero US PREG TVon 06-15-2021 US PREG [...] SANDERS Date: 2021-06-15 09:44 Normal [facility] Auth for Release of Medical Records 06-05-2021 Auth for Release of Medical Records [id number] Normal [facility] Vital Signs Date Time Vital Sign Value Performing Clinician Facility 08-08-2024 15:54-0500 Body mass index (BMI) [Ratio] 29.94 kg/m2 Jorge Luis Katrin DO Work Phone: [facility] 08-08-2024 15:54-0500 Body weight 79.11 kg Jorge Luis Katrin DO Work Phone: [facility] 08-08-2024 15:54-0500 Diastolic blood pressure 84 mm[Hg] Jorge Luis Katrin DO Work Phone: [facility] 08-08-2024 15:54-0500 Systolic blood pressure 126 mm[Hg] Jorge Luis Katrin DO Work Phone: [facility] 08-01-2024 15:40-0500 Body mass index (BMI) [Ratio] 29.49 kg/m2 Jorge Luis Katrin DO Work Phone: [facility] 08-01-2024 15:40-0500 Body weight 77.93 kg Jorge Luis Katrin DO Work Phone: [facility] 08-01-2024 15:40-0500 Diastolic blood pressure 82 mm[Hg] Jorge Luis Katrin DO Work Phone: [facility] 08-01-2024 15:40-0500 Systolic blood pressure 122 mm[Hg] Jorge Luis Katrin DO Work Phone: [facility] 07-24-2024 15:18-0500 Body mass index (BMI) [Ratio] 29.66 kg/m2 Bibiana Archer PA Work Phone: [facility] 07-24-2024 15:18-0500 Body weight 78.38 kg Bibiana Quinton PA Work Phone: [facility] 07-24-2024 15:18-0500 Diastolic blood pressure 82 mm[Hg] Bibiana Quinton PA Work Phone: [facility] 07-24-2024 15:18-0500 Systolic blood pressure 130 mm[Hg] Bibiana Quinton PA Work Phone: [facility] 07-18-2024 16:25-0500 Body mass index (BMI) [Ratio] 28.84 kg/m2 Jorge Luis Katrin DO Work Phone: [facility] 07-18-2024 16:25-0500 Body weight 76.2 kg Jorge Luis Katrin DO Work Phone: [facility] 07-18-2024 16:25-0500 Diastolic blood pressure 76 mm[Hg] Jorge Luis Katrin DO Work Phone: [facility] 07-18-2024 16:25-0500 Systolic blood pressure 114 mm[Hg] Jorge Luis Katrin DO Work Phone: [facility] 07-11-2024 16:13-0500 Body mass index (BMI) [Ratio] 29.15 kg/m2 Bibiana Archer PA Work Phone: [facility] 07-11-2024 16:13-0500 Body weight 77.02 kg Bibiana Archer PA Work Phone: [facility] 07-11-2024 16:13-0500 Diastolic blood pressure 74 mm[Hg] Bibiana Archer PA Work Phone: [facility] 07-11-2024 16:13-0500 Systolic blood pressure 112 mm[Hg] Bibiana Quinton PA Work Phone: [facility] 06-27-2024 16:21-0500 Body mass index (BMI) [Ratio] 27.98 kg/m2 Jorge Luis Katrin DO Work Phone: [facility] 06-27-2024 16:21-0500 Body weight 73.94 kg Jorge Luis Katrin DO Work Phone: [facility] 06-27-2024 16:21-0500 Diastolic blood pressure 70 mm[Hg] Jorge Luis Katrin DO Work Phone: [facility] 06-27-2024 16:21-0500 Systolic blood pressure 112 mm[Hg] Jorge Luis Katrin DO Work Phone: [facility] 06-06-2024 16:04-0500 Body mass index (BMI) [Ratio] 27.46 kg/m2 Bibiana MONROY Work Phone: [facility] 06-06-2024 16:04-0500 Body weight 72.58 kg Bibiana MONROY Work Phone: [facility] 06-06-2024 16:04-0500 Diastolic blood pressure 66 mm[Hg] Bibiana MONROY Work Phone: [facility] 06-06-2024 16:04-0500 Systolic blood pressure 110 mm[Hg] Bibiana Alcantara PA Work Phone: [facility] 05-21-2024 16:56-0500 Body mass index (BMI) [Ratio] 27.09 kg/m2 Jorge Luis Katrin DO Work Phone: [facility] 05-21-2024 16:56-0500 Body weight 71.58 kg Jorge Luis Katrin DO Work Phone: [facility] 05-21-2024 16:56-0500 Diastolic blood pressure 64 mm[Hg] Jorge Luis Katrin DO Work Phone: [facility] 05-21-2024 16:56-0500 Systolic blood pressure 106 mm[Hg] Jorge Luis Katrin DO Work Phone: [facility] 05-07-2024 16:39-0500 Body mass index (BMI) [Ratio] 26.09 kg/m2 Bibiana MONROY Work Phone: [facility] 05-07-2024 16:39-0500 Body weight 68.95 kg Bibiana MONROY Work Phone: [facility] 05-07-2024 16:39-0500 Diastolic blood pressure 68 mm[Hg] Bibiana MONROY Work Phone: [facility] 05-07-2024 16:39-0500 Systolic blood pressure 112 mm[Hg] Bibiana MONROY Work Phone: [facility] 04-16-2024 14:18-0400 Body height 160 cm Jeet Tavares MD Work Phone: [facility] 04-16-2024 14:18-0400 Body mass index (BMI) [Ratio] 26.39 kg/m2 Jeet Tavares MD Work Phone: [facility] 04-16-2024 14:18-0400 Body weight 67.59 kg Jeet Tavares MD Work Phone: [facility] 04-16-2024 14:18-0400 Diastolic blood pressure 78 mm[Hg] Jeet Tavares MD Work Phone: [facility] 04-16-2024 14:18-0400 Heart rate 102 /min Jeet Tavares MD Work Phone: [facility] 04-16-2024 14:18-0400 Systolic blood pressure 133 mm[Hg] Jeet Tavares MD Work Phone: [facility] 04-03-2024 14:57-0400 Body mass index (BMI) [Ratio] 25.4 kg/m2 Jorge Luis Katrin DO Work Phone: [facility] 04-03-2024 14:57-0400 Body weight 67.13 kg Jorge Luis Katrin DO Work Phone: [facility] 04-03-2024 14:57-0400 Diastolic blood pressure 64 mm[Hg] Jorge Luis Katrin DO Work Phone: [facility] 04-03-2024 14:57-0400 Systolic blood pressure 100 mm[Hg] Jorge Luis Katrin DO Work Phone: [facility] 03-05-2024 16:05-0400 Body mass index (BMI) [Ratio] 23.54 kg/m2 Bibiana Alcantara PA Work Phone: [facility] 03-05-2024 16:05-0400 Body weight 62.2 kg Bibiana Alcantara PA Work Phone: [facility] 03-05-2024 16:05-0400 Diastolic blood pressure 74 mm[Hg] Bibiana Alcantara PA Work Phone: [facility] 03-05-2024 16:05-0400 Systolic blood pressure 112 mm[Hg] Bibiana Alcantara PA Work Phone: [facility] 02-06-2024 15:48-0400 Body mass index (BMI) [Ratio] 23.25 kg/m2 Jorge Luis Katrin DO Work Phone: [facility] 02-06-2024 15:48-0400 Body weight 61.43 kg Jorge Luis Katrin DO Work Phone: [facility] 02-06-2024 15:48-0400 Diastolic blood pressure 74 mm[Hg] Jorge Luis Katrin DO Work Phone: [facility] 02-06-2024 15:48-0400 Systolic blood pressure 112 mm[Hg] Jorge Luis Katrin DO Work Phone: [facility] 08-18-2021 18:08-0500 Body weight 63.[address] RODNEY CAPUTO [facility] Comment on above: Performed By: #### [id number] #### [facility] [address] [place] [address] Dr. Parth Lucero Encounters Encounter Date Encounter Type Care Provider Facility Start: 08-10-2024 End: 08-10-2024 Clinisync Result Encounter Jorge Luis Katrin DO Work Phone: [facility] External Department Unsolicited Start: 08-10-2024 End: 08-10-2024 Clinisync Result Encounter Jorge Luis Katrin DO Work Phone: [facility] External Department Unsolicited Start: 08-08-2024 End: 08-08-2024 ambulatory JORGE LUIS KATRIN Not Available Start: 08-08-2024 End: 08-08-2024 flow sheet Jorge Luis Katrin DO Work Phone: [facility] Comment on above: Third trimester preg alfredo; 39 weeks gestation of Start: 08-08-2024 End: 08-08-2024 Bamboo flowsheet Jorge Luis Katrin DO Work Phone: [facility] Start: 08-08-2024 End: 08-08-2024 Bamboo flowsheet Jorge Luis Katrin DO Work Phone: [facility] Start: 08-08-2024 End: 08-08-2024 Clinisync Result Encounter Jorge Luis Katrin DO Work Phone: [facility] External [facility] Unsolicited Start: 08-06-2024 End: 08-06-2024 Clinisync Result Encounter Jorge Luis Katrin DO Work Phone: [facility] Unsolicited Start: 08-06-2024 End: 08-06-2024 Clinisync Result Encounter Jorge Luis Katrin DO Work Phone: [facility] Unsolicited Start: 08-01-2024 End: 08-01-2024 ambulatory JORGE LUIS KATRIN Not Available Start: 08-01-2024 End: 08-01-2024 flow sheet Jorge Luis Katrin DO Work Phone: [facility] Comment on above: Third trimester preg alfredo; 38 weeks gestation of ; Folliculitis Start: 08-01-2024 End: 08-01-2024 Bamboo flowsheet Jorge Luis Katrin DO Work Phone: [facility] Start: 08-01-2024 End: 08-01-2024 Bamboo flowsheet Jorge Luis Katrin DO Work Phone: [facility] Start: 07-24-2024 End: 07-24-2024 ambulatory BIBIANA ALCANTARA Not Available Start: 07-24-2024 End: 07-24-2024 flow sheet Bibiana MONROY Work Phone: [facility] Comment on above: Third trimester preg alfredo; 37 weeks gestation of Start: 07-24-2024 End: 07-24-2024 Bamboo flowsheet Bibiana MONROY Work Phone: [facility] Start: 07-24-2024 End: 07-24-2024 Bamboo flowsheet Bibiana MONROY Work Phone: [facility] Start: 07-18-2024 End: 07-18-2024 flow [...] 05-15-2024 ambulatory JORGE LUIS R KATRIN [facility] Start: 05-07-2024 End: 05-07-2024 flow sheet Bibiana MONROY Work Phone: [facility] Comment on above: 26 weeks gestation o f ; Second trimester ; Elevated glucose tolerance test Start: 05-07-2024 End: 05-07-2024 ambulatory BIBIANA ALCANTARA Not Available Start: 05-07-2024 End: 05-07-2024 Bamboo flowsheet Bibiana MONROY Work Phone: [facility] Start: 05-07-2024 End: 05-07-2024 [...] Encounter Jorge Luis Katrin DO Work Phone: [facility] External Department Unsolicited Start: 04-16-2024 End: 04-16-2024 Office outpatient new 45 minutes Jeet Tavares MD Work Phone: [facility] [place] Comment on above: Echogenic focus of h eart of fetus affecting antepartum care of mother, single or unspecified fetus (Primary Dx); Low lying placenta, antepartum; Suspected condition not found; Family history of congenital heart defect; 23 weeks gestation of Start: 04-16-2024 End: 04-16-2024 ambulatory [facility] Start: 04-11-2024 End: 04-11-2024 Chart abstracting Jeet Tavares MD Work Phone: [facility] Start: 04-03-2024 End: 04-03-2024 flow sheet [...] abnormal findings DR RODNEY CAPUTO [facility] Start: 08-26-2021 End: 08-26-2021 [...] Date Procedure Procedure Detail Performing Clinician Start: 08-10-2024 ALL CBC WITH AUTO DIFF Jorge Luis Katrin DO Work Phone: Start: 08-08-2024 [facility] CBC WITH PLATEL ET NO DIFFERENTIAL Jorge Luis Katrin DO Work Phone: Start: 08-08-2024 Urnls dip stick/tabl et rgnt non-auto w/o micrscp Jorge Luis Katrin DO Work Phone: Start: 08-06-2024 [facility] UA (CLEAN/CATCH) VEST BASTER/MICRO IF IND. Jorge Luis Katrin DO Work Phone: Start: 07-24-2024 Urnls dip stick/tabl et rgnt non-auto w/o micrscp Bibiana MONROY Work Phone: Start: 07-18-2024 Urnls dip stick/tabl et rgnt non-auto w/o micrscp Jorge Luis Vazquezo DO Work Phone: Start: 07-18-2024 ALL MISCELLANEOUS TEST Jorge Luis Wilkes DO Work Phone: Start: 07-16-2024 [facility] UA (CLEAN/CATCH) VEST BASTER/MICRO IF IND. Jorge Luis Wilkes DO Work Phone: Start: 07-11-2024 Urnls dip stick/tabl et rgnt non-auto w/o micrscp Bibiana MONROY Work Phone: Start: 06-27-2024 Urnls dip stick/tabl et rgnt non-auto w/o micrscp Jorge Luis Vazquezo DO Work Phone: Start: 06-06-2024 Urnls dip stick/tabl et rgnt non-auto w/o micrscp Bibiana MONROY Work Phone: Start: 05-21-2024 Urnls dip stick/tabl et rgnt non-auto w/o micrscp Jorge Luis Wilkes DO Work Phone: Start: 05-07-2024 Urnls dip stick/tabl et rgnt non-auto w/o micrscp Bibiana MONROY Work Phone: Start: 05-05-2024 GLUCOSE TOLERANCE 3 HOUR Jorge Luis Wilkes DO Work Phone: Start: 04-28-2024 ALL CBC WITH AUTO DIFF Jorge Luis Wilkes DO Work Phone: Start: 04-03-2024 Urnls dip stick/tabl et rgnt non-auto w/o micrscp Jorge Luis Vazquezo DO Work Phone: Start: 03-28-2024 AFP, [...] auto t hin layer prep mnl screen [facility] DO Work Phone: Start: 03-05-2024 URETHRITIS/DISCHARGE PLUS VAGINITIS (HTRX) Bibiana MONROY Work Phone: Start: 02-06-2024 Urnls dip stick/tabl et rgnt non-auto w/o micrscp [facility] DO Work Phone: Start: 01-27-2024 Antibody screen [...] Screening for malign ant neoplasm of cervix [facility] Start: 04-16-2025 Adult BMI Screening Adult BMI Screen ing [facility] Start: 04-16-2025 Tobacco Screening Tobacco Screening [facility] Start: 08-08-2024 End: 08-08-2024 Patient encounter procedure 08/08/2024 3:20 PM EST Routine [facility] [address] [place] [phone] Jorge Luis Wilkes, DO [address] [place] [address] [facility] Start: 08-01-2024 End: 08-01-2024 Patient encounter procedure 08/01/2024 3:00 PM EST Routine [facility] [address] [place] [place] [phone] Jorge Luis Wilkes, DO [address] [place] [address] [facility] Start: 07-24-2024 End: 07-24-2024 Patient encounter procedure 07/24/2024 2:50 PM EST Routine [facility] [address] [place] [phone] Bibiana Alcantara PA [address] [place] [address] [facility] Start: 07-18-2024 End: 07-18-2024 [...] PM EST Routine [facility] [address] [place] [place] [address] Jorge Luis Wilkes, DO [address] [place] [address] [facility] Start: 06-27-2024 End: 06-27-2025 US for US OB follow up transabdominal approach Imaging Routine Excessive growth affecting management of , antepartum, single or unspecified fetus Expected: 06/27/2024, Expires: 06/27/2025 [facility] Work Phone: Comment on above: Expected: 06/27/2024 , Expires: 06/27/2025 Start: 05-21-2024 End: 05-21-2024 Patient encounter procedure 05/21/2024 3:50 PM EST Routine [facility] [address] [place] [phone] Jorge Luis Wilkes, DO [address] [place] [address] [facility] Start: 05-15-2024 End: 05-15-2024 Patient encounter procedure 05/15/2024 10:15 AM EST Appointment [facility] - Ultrasound [address] [place] [address] [facility] - [facility]trasound Start: 05-07-2024 End: [...] End: 04-16-2024 Patient encounter procedure [facility] [place] Start: 04-04-2024 End: 04-04-2024 Patient encounter procedure 04/04/2024 3:10 PM EDT Routine [facility] [address] [place] [phone] Jorge Luis Wilkes, DO [address] [place] [address] [facility] Start: 04-03-2024 End: 04-03-2024 Patient encounter procedure 04/03/2024 2:20 PM EDT Routine [facility] [address] [place] [place] [phone] Jorge Luis Wilkes, DO [address] [place] [address] Arrived [facility] Comment on above: Arrived Start: 04-03-2024 End: 04-03-2025 CBC panel - Blood by Automated count CBC Lab Routine Diabetes mellitus screening Expected: 04/03/2024 (Approximate), Expires: 04/03/2025 [facility] Comment on above: Expected: 04/03/2024 (Approximate), Expires: 04/03/2025 Start: 04-03-2024 End: 04-03-2025 Measurement of glucose 1 hour after glucose challenge for glucose tolerance test Glucose tolerance, 1 hour Lab Routine Diabetes mellitus screening Expected: 04/03/2024 (Approximate), Expires: 04/03/2025 [facility] Comment on above: Expected: 04/03/2024 (Approximate), Expires: 04/03/2025 Start: 04-03-2024 End: 04-03-2025 US for US OB INCOMPLETE ANATOMY Imaging Routine Encounter for follow-up ultrasound of anatomy Expected: 04/03/2024 (Approximate), Expires: 04/03/2025 [facility] Work Phone: Comment on above: Expected: 04/03/2024 (Approximate), Expires: 04/03/2025 Start: 03-05-2024 End: 03-05-2024 Patient encounter procedure [facility] Comment on above: Arrived Start: 03-05-2024 End: 09-02-2024 Alpha fetoprotein, maternal Alpha fetoprotein, maternal Lab Routine Second trimester Expected: 03/05/2024 (Approximate), Expires: 09/02/2024 [facility] Comment on above: Expected: 03/05/2024 (Approximate), Expires: 09/02/2024 Start: 03-05-2024 End: 03-05-2025 US for US OB ANATOMY SINGLE W US OB CERVICAL LENGTH Imaging Routine Screening, , for anatomic survey Expected: 03/05/2024 (Approximate), Expires: 03/05/2025 [facility] Comment on above: Expected: 03/05/2024 (Approximate), Expires: 03/05/2025 Start: 02-19-[address] [facility] Start: 10-15-2021 Screening for malign ant neoplasm of cervix [facility] Start: 10-15-2012 Screening for malign ant neoplasm of cervix Pap Smear [facility] Start: 10-15-2010 DTaP,Tdap and Td Vaccines (1 - Tdap) DTaP,Tdap and Td Vaccines (1 - Tdap) [facility] Start: 10-15-2009 Adult BMI Follow Up Plan Adult BMI Follow Up Plan [facility] Start: 10-15-2009 Adult BMI Screening Adult BMI Screen ing [facility] Start: 2003 Depression Screening Depression Scre ening [facility] Start: 2003 Tobacco Screening Tobacco Screening [facility] CHLAMYDIA TRACHOMATI S (GENITO/STI) CHLAMYDIA TRACHOMATIS (GENITO/STI) Lab Routine STD exposure Ordered: 03/05/2024 [facility] Comment on above: Ordered: 03/05/2024 Cytology Cervical or vaginal smear or scraping study Pap Smear Pathology and Cytology Routine Well woman exam with routine gynecological exam Ordered: 03/05/2024 [facility] Work Phone: Comment on above: Ordered: 03/05/2024 Human papilloma viru s DNA [Presence] in Unspecified specimen by Probe with amplification HPV DNA probe, amplified Microbiology Routine Well woman exam with routine gynecological exam Ordered: 03/05/2024 [facility] Comment on above: Ordered: 03/05/2024 Neisseria gonorrhoea e DNA [Presence] in Unspecified specimen by RIGOBERTO with probe detection Neisseria gonorrhea DNA probe, direct Lab Routine STD exposure Ordered: 03/05/2024 [facility] Comment on above: Ordered: 03/05/2024 SURESWAB(R) ADVANCED VAGINITIS PLUS, TMA SURESWAB(R) ADVANCED VAGINITIS PLUS, TMA Pathology and Cytology Routine Vaginal discharge Ordered: 03/05/2024 [facility] Comment on above: Ordered: 03/05/2024 Payers Date Payer Category Payer Private Health Insurance [employer] [id number] 2017 Unknown [employer] [id number] 2017-Present [address] [place] [address] [id number] 1991 Unknown [id number]. 593 1991 Unknown [id number] [id number]. 593 1991 Unknown [id number] [id number]. 593 1991 Unknown [id number] [id number]. 593 1991 Unknown [id number] [id number]. 593 1991 Unknown [id number] [id number]. 593 1991 Unknown [id number] [id number]. 593 1991 Unknown [id number] 2.16.840.1.920287.3.579.2. 593 1991 Unknown [id number] 2.16.840.1.946387.3.579.2. 593 1991 Unknown [id number] 2.16840.1.086531.3.579.2. 593 1991 Unknown [id number] [id number]. 593 1991 Unknown [id number] 2.16840.1.131589.3.579.2. 593 1991 Unknown [id number] 2.840.1.303190.3.579.2. 593 1991 Unknown [id number] 2.16840.1.891658.3.579.2. 593 1991 Unknown [id number] 2.16840.1.941485.3.579.2. 593 1991 Unknown [id number] 2.16840.1.932535.3.579.2. 1286 1991 Unknown [id number] 2.16840.1.425846.3.579.2. 1286 1991 Unknown [id number] 2.16840.1.996918.3.579.2. 1286 1991 Unknown [id number] 2.16840.1.907415.3.579.2. 1259 1991 Unknown [id number] 2.16840.1.101938.3.579.2. 1259 1991 Unknown [id number] 2.16840.1.315448.3.579.2. 1259 1991 Unknown [id number] 2.16840.1.079523.3.579.2. 9 1991 Unknown [id number] 2.16.840.1.642698.3.579.2. 1258 1991 Unknown [id number] 2.16.840.1.850859.3.579.2. 1258 1991 Unknown [id number] 2.16.840.1.866498.3.579.2. 1258 1991 Unknown [id number] 2.16.840.1.621923.3.579.2. 1258 1991 Unknown [id number] 2.16.840.1.622072.3.579.2. 1258 1991 Unknown [id number] 2.16.840.1.783145.3.579.2. 1258 1991 Unknown [id number] 2.16.840.1.276028.3.579.2. 1258 1991 Unknown [id number] 2.16.840.1.067003.3.579.2. 1258 1991 Unknown [id number] 2.16.840.1.215983.3.579.2. 1258 1991 Unknown [id number] 2.16.840.1.284571.3.579.2. 1258 1991 Unknown [id number] 2.16.840.1.351552.3.579.2. 1258 1991 Unknown [id number] 2.16.840.1.240301.3.579.2. 1258 1991 Unknown [id number] 2.16.840.1.858305.3.579.2. 1258 1991 Unknown [id number] 2.16840.1.613795.3.579.2. 9 1959 Self-pay 1959 Unknown [id number] [employer] are - [facility] 1.2.840.171673.1.13.424.2. 7.9.132904.402.315 Unknown [id number] 2.16.840.1.107912.3.579.2. 593 Social History Date Type Detail Facility Start: 10-12-2023 End: 04-11-2024 Tobacco smoking status NHIS Never smoked tobacco [facility] Start: 10-12-2023 End: 04-11-2024 Tobacco use and exposure Smokeless tobacco non-user [facility] Start: 02-06-2024 End: 08-01-2024 Alcoholic beverage intake Ex-drinker (finding) [facility] Start: 12-07-2023 End: 02-06-2024 Alcoholic beverage intake [facility] Start: 12-07-2023 End: 04-16-2024 Tobacco use panel [facility] Start: 11-20-2023 [facility] Start: 1990 Sex assigned at Not on file [facility] Start: 04-10-2024 Sex Female (finding) [facility] Within the past 12 months we worried whether our food would run out before we got money to buy more. Never True [facility] Goals Date Patient Goal Desired Activity /State Personal health goal Clinical Notes 02-06-2024 to 08-08-2024 Jorge Luis Wilkes DO - 08/08/2024 3:20 PM Minda Uriarte LPN - 08/01/2024 3:00 PM ELIANA Mesa - 07/24/2024 2:50 PM ELIANA Mesa - 07/18/2024 4:00 PM ELIANA Mesa - 07/11/2024 3:50 PM EST Note Date & Type Note Facility 08-08-2024 History of Present illness Narrative Reason for Appointment: Patient ID: Cindy Rocha is a 33 y.o. female who presents for Routine Visit Patient presents today for Return OB appointment. MEDICATIONS Current Outpatient Medications Medication Instructions clindamycin (CLEOCIN) 300 mg, Oral, 3 times daily omeprazole (PRILOSEC) 20 mg, Oral, Daily before [...] SYSTEMS Review of Systems: Review of Systems OBJECTIVE Objective: OBGyn Exam Vitals: Estimated body mass index is 29.94 kg/m as calculated from the following: Height as of 24: 5' 4 . Weight as of this encounter: 174 lb 6.4 oz. BP: 126/84 Patient's last menstrual period was 11/06/2023. ASSESSMENT & PLAN ICD-10-CM 1. Third trimester Z34.93 POCT urinalysis dipstick manually resulted 2. 39 weeks gestation of Z3A.39 Documented by Ivana Uriarte LPN on behalf of: Jorge Luis Wilkes DO documented in this encounter [facility] 08-01-2024 History of Present illness Narrative Reason [...] nursing note reviewed. Exam conducted with a industrial maintenance manager present. Vitals: Estimated body mass index [...] Luis Wilkes DO documented in this encounter [facility] 07-24-2024 History of Present illness Narrative Reason [...] of: ELIANA Candelaria documented in this encounter [facility] 07-18-2024 History of Present illness Narrative Reason for Appointment: Patient ID: Cindy oRcha is a 33 y.o. female who presents [...] Onset Arthritis Mother Melita Campa Diabetes Mother Meltia Campa Rheum arthritis Mother Melita Campa Hypertension [...] Luis Wilkes DO documented in this encounter [facility] 07-11-2024 History of Present illness Narrative Reason [...] Mother Melita [place] Rheum arthritis Mother Melita [place] Hypertension Father Bryant Campa SURGICAL HISTORY Past [...] of: ELIANA Candelaria documented in this encounter [facility] 06-27-2024 History of Present illness Narrative Reason [...] nursing note reviewed. Exam conducted with a industrial maintenance manager present. Vitals: Estimated body mass index [...] Luis Wilkes DO documented in this encounter [facility] 06-06-2024 History of Present illness Narrative Reason [...] of: ELIANA Candelaria documented in this encounter [facility] 05-21-2024 History of Present illness Narrative Reason [...] Luis Wilkes DO documented in this encounter [facility] 05-07-2024 History of Present illness Narrative Reason [...] Rheum arthritis Mother Melita [place] Hypertension Father rByant Campa SURGICAL HISTORY Past Surgical History: Procedure [...] Pt was scheduled to go back to [facility] in 4 weeks for a f/up US visit for Echo focus of fetus. Pt states she is unable to make the appt and would like to have the US done here in [place]. Follow Up: Patient is to return to office in 2 week for routine OB appointment. Documented by Maggie Prieto MA on behalf of: ELIANA Candelaria documented in this encounter [facility] 04-16-2024 History of Present illness Narrative [facility] [...] Start Date End Date Taking? Authorizing Provider [id number] 28-800 mg-mcg tablet Take 1 tablet [...] SARS-CoV-2 infection. This document was created with [employer] technology. Though I make every effort to review the dictation as it is transcribed, on occasion the spoken word can be misinterpreted by the technology leading to inappropriate words, phrases, or sentences. This note is addressed to the requesting provider as a consultation for clinical guidance. Specific medical abbreviations are occasionally used and those are generally approved by the [place]?Board of?Obstetrics and?Gynecology?as well as?Steve s abbreviations. The above plan of care was based solely on the diagnoses for which a consultation was requested. ?More frequent testing may be indicated based on her other medical/obstetrical conditions. The management of other or medical conditions is beyond the scope of requested consultation and will continue to be followed by the primary blasting miner or primary care provider. Thank you for [...] Referring and communicating with other health child day care center worker (not separately reported) Documenting clinical information in [...] yes Have you been seen here at [facility] in a previous ? no Recent ER visits or hospitalizations? no Bring blood sugar log or meter with you today? (Please bring them with you for every visit at [facility]) n/a Flu vaccine (Apr-August)? no Any concerns that you would like me to mention to the provider today? no documented in this encounter [facility] 04-03-2024 History of Present illness Narrative Reason [...] nursing note reviewed. Exam conducted with a industrial maintenance manager present. Vitals: Estimated body mass index [...] Luis Wilkes DO documented in this encounter [facility] 03-05-2024 History of Present illness Narrative Reason [...] nursing note reviewed. Exam conducted with a industrial maintenance manager present. Vitals: Estimated body mass index [...] obtained without difficulty and patient was given [facility] order to have obtained. Orders Placed This [...] of: ELIANA Candelaria documented in this encounter [facility] 02-06-2024 History of Present illness Narrative Reason [...] Name Age of Onset Arthritis Mother Melita [place] Diabetes Mother Melita Campa Rheum arthritis Mother [...] nursing note reviewed. Exam conducted with a industrial maintenance manager present. Vitals: Estimated body mass index [...] or undercooked meat, and stay away from [facility]. Patient has been consulted regarding any further do's and don'ts of . Patient voiced understanding and all questions and concerns were answered. Orders Placed This Encounter Procedures POCT urinalysis dipstick manually resulted Follow Up: Patient is to return in 4 weeks for routine OB appointment. Documented by Pooja Mendez LPN on behalf of: Jorge Luis Wilkes DO documented in this encounter [facility] Healthcare Evaluation note Diagnosis 21 weeks [...] weeks gestation of [facility] Diagnosis Third trimester state, incidental 39 weeks gestation of documented in this encounter [facility]Not on filedocumented in this encounter[facility] System[facility]ructionsNot on filedocumented in this [facility] Summary Purpose Family History No [...] content) DATE CREATED AUTHOR 06/06/2021 Maged Vázquez [facility] DATE CREATED AUTHOR AUTHOR'S ORGANIZ ATION 05/12/2022 [facility] DATE CREATED AUTHOR AUTHOR'S ORGANIZ ATION 04/17/2024 [facility] DATE CREATED AUTHOR AUTHOR'S ORGANIZ ATION 05/17/2024 [facility] DATE CREATED AUTHOR AUTHOR'S ORGANIZ ATION 08/10/2024 [facility] dical Specialists EPIC Care Teams (unrecognized sec tion and content) Executive Steward 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 Specialty Start Date End Date Tamir Fuentes MD [address] [place] [address] PCP - General Family Medicine 10/12/23 Merlene Choe MD [address] [place] [address] Referring Physician Internal Medicine 10/12/23 Executive Steward 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 Specialty Start Date End Date Tamir Fuentes MD [address] [place] [address] PCP - General Family Medicine 10/12/23 Merlene Choe MD [address] [place] [address] Referring Physician Internal Medicine 10/12/23 Executive Steward 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 Specialty Start Date End Date Tamir Fuentes MD [address] [place] [place] [address] PCP - General Family Medicine 10/12/23 Bibiana Alcantara PA [address] [place] [address] [place] [address] PCP - Medical [place] [employer] 06/20/17 06/19/99 Merlene Choe MD [address] [place] [address] Referring Physician Internal Medicine 10/12/23 Executive Steward 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 Specialty Start Date End Date Tamir Fuentes MD [address] [place], [place] [id number] PCP - General Family Medicine 10/12/23 Bibiana Alacntara PA [address] [place] [address] [place] [address] PCP - Medical [place] [employer] 06/20/17 06/19/99 Merlene Choe MD [address] [place] [address] Referring Physician Internal Medicine 10/12/23 Executive Steward 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 Specialty Start Date End Date Tamir Fuentes MD [address] [place] [address] PCP - General Family Medicine 10/12/23 Bibiana Alcantara PA [address] [place] [address] [place] [address] PCP - Medical [place] [employer] 06/20/17 06/19/99 Merlene Choe MD [address] [place] [address] Referring Physician Internal Medicine 10/12/23 Executive Steward 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 Specialty Start Date End Date Tamir Fuentes MD [address] [place], [place] [id number] PCP - General Family Medicine 10/12/23 Bibiana Alcantara PA [address] [place] [address] [address] [place], [place] [id number] PCP - Medical [place] [employer] 06/20/17 06/19/99 Merlene Choe MD [address] [place] [address] Referring Physician Internal Medicine 10/12/23 Executive Steward 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 Specialty Start Date End Date Tamir Fuentes MD [address] [place] [id number] PCP - General Family Medicine 10/12/23 Merlene Choe MD [address] [place] [address] Referring Physician Internal Medicine 10/12/23 Executive Steward 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 Specialty Start Date End Date Tamir Fuentes MD [address] [place] [id number] PCP - General Family Medicine 10/12/23 Merlene Choe MD [address] [place] [address] Referring Physician Internal Medicine 10/12/23 Executive Steward 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 Specialty Start Date End Date Tamir Fuentes MD [address] [place] [address] PCP - General Family Medicine 10/12/23 Bibiana Alcantara PA [address] [place] [address] [place] [address] PCP - Medical [place] [employer] 06/20/17 06/19/99 Merlene Choe MD [address] [place] [address] Referring Physician Internal Medicine 10/12/23 Executive Steward 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 Specialty Start Date End Date Tamir Fuentes MD [address] [place] [address] PCP - General Family Medicine 10/12/23 Bibiana Alcantara PA [address] [place] [address] [place] [address] PCP - Medical [place] [employer] 06/20/17 06/19/99 Merlene Choe MD [address] [place] [address] Referring Physician Internal Medicine 10/12/23 Executive Steward 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 Specialty Start Date End Date Tamir Fuentes MD [address] [place] [address] PCP - General Family Medicine 10/12/23 Bibiana Alcantara PA [address] [place] [address] [place] [address] PCP - Medical [place] [employer] 06/20/17 06/19/99 Merlene Choe MD [address] [place] [address] Referring Physician Internal Medicine 10/12/23 Executive Steward 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 Specialty Start Date End Date Tamir Fuentes MD [address] [place] [address] PCP - General Family Medicine 10/12/23 Bibiana Alcantara PA [address] [place] [address] [place] [address] PCP - Medical [place] [employer] 06/20/17 06/19/99 Merlene Choe MD [address] [place] [phone] Referring Physician Internal Medicine 10/12/23 Executive Steward 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 Specialty Start Date End Date Tamir Fuentes MD [address], [facility] PCP - General Family Medicine 10/12/23 Bibiana Alcantara PA [address] [place] [address] [place] [address] PCP - Medical [place] [employer] 06/20/17 06/19/99 Merlene Choe MD [address] [place] [phone] Referring Physician Internal Medicine 10/12/23 Executive Steward 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 Specialty Start Date End Date Tamir Fuentes MD [address] [place] [place] [address] PCP - General Family Medicine 10/12/23 Bibiana Alcantara PA [address] [place] [address] [place] [address] PCP - Medical [place] [employer] 06/20/17 06/19/99 Merlene Choe MD [address] [place] [address] Referring Physician Internal Medicine 10/12/23 Executive Steward 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 Specialty Start Date End Date Tamir Fuentes MD [address] [place] [address] PCP - General Family Medicine 10/12/23 Bibiana Alcantara PA [address] [place] [address] [place] [id number] PCP - Medical [place] [employer] 06/20/17 06/19/99 Merlene Choe MD [address] [place] [id number] Referring Physician Internal Medicine 10/12/23 Executive Steward 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 Specialty Start Date End Date Tamir Fuentes MD [address] [place] [id number] PCP - General Family Medicine 10/12/23 Bibiana Alcantara PA [address] [place] [address] [place] [address] PCP - Medical [place] [employer] 06/20/17 06/19/99 Merlene Choe MD [address] [place] [phone] Referring Physician Internal Medicine 10/12/23 Reason for [...] BE BASED ON THE PRIMARY CLINICAL RECORDS. [facility]. provides no warranty or guarantee of the accuracy or completeness of information in this document.
[2024-08-12 12:19] LABS: Basophils Percent Auto 0.4 % (0.2-2.0); Eosinophils Absolute Auto 0.2 10^3/uL (0.0-0.7); Eosinophils Percent Auto 1.9 % (0.9-7.0); Hematocrit 39.8 % (36.0-48.0); Hemoglobin 12.9 g/dL (12.0-16.0); Immature Granulocytes Abs Auto 0.06 10^3/uL (0.00-0.03); Immature Granulocytes Pct Auto 0.6 % (0.0-0.5); Lymphocytes Absolute Auto 1.9 10^3/uL (1.2-3.8); Lymphocytes Percent Auto 17.9 % (20.5-60.0); Mean Corpuscular HGB Conc 32.4 g/dL (29.9-35.2); Mean Corpuscular Hemoglobin 29.8 pg (26.7-34.0); Mean Corpuscular Volume 91.9 fL (81.0-99.0); Mean Platelet Volume 9.4 fL (9.5-13.5); Monocytes Absolute Auto 0.7 10^3/uL (0.3-0.8); Monocytes Percent Auto 6.8 % (1.7-12.0); Neutrophils Absolute Auto 7.5 10^3/uL (1.4-6.5); Neutrophils Percent Auto 72.4 % (43.0-75.0); Platelet Count 275 10^3/uL (150-450); Red Blood Count 4.33 10^6/uL (4.20-5.40); Red Cell Distribution Width 14.5 % (11.0-15.0); White Blood Count 10.4 10^3/uL (4.0-11.0)
--- NOTE | 2024-08-12 12:37 | ED.ARRPALP1 ---
HPI - Arrhythmia/Palpitations General Chief Complaint: Arrhythmia/Palpitations Stated Complaint: ELEVATED BP - 4 DAYS Time Seen by Provider: 08/12/24 11:48 Source: patient Mode of arrival: walk-in History of Present Illness HPI narrative: cc = high bp Patient is about 4 days . Last night she started to experience some sensation of what she described as dizziness but more vague than that, as if I was floating . She did have some headache in the posterior aspect of the head. She had experience that earlier in the day and took Motrin which made it go away when she ate something. She has been lacking in sleep for the last few days that she has been breast-feeding her baby and doing cluster feeding . She continued to have the same symptoms this morning and her [id number] apparently has high blood pressure, so he brought over a blood pressure cuff and the got readings of 148/102 and 152/108. Her brought her to the ED for evaluation. On arrival she is complaining of a mild headache at the posterior aspect of her head that she rates 3/10 and declined offer for Tylenol. She is emotional. She said that some of the elements of what she experienced last night-difficulty concentrating and floaty sensation-have resolved at this time. Related Data Home Medications ?Medication ?Instructions ?Recorded ?Confirmed No Known Home Medications 08/12/24 08/12/24 Allergies Allergy/AdvReac Type Severity Reaction Status Date / Time Penicillins Allergy Unknown Verified 08/08/24 18:11 [facility] Social History Highest level of school completed/degree received: Master's degree Little interest or pleasure in doing things: not at all Feeling down, depressed, or hopeless: not at all Exam Narrative Exam Narrative: Nurses notes and vital signs reviewed and patient is not hypoxic. afebrile General: Well-appearing. Emotional but in no apparent distress. Skin: Warm, dry, no pallor noted. No rash. Head: Normocephalic, atraumatic. Neck: Supple, non-tender. No meningismus. Eye: Pupils are equal, round and EOMI. No scleral icterus. Ears, Nose, Mouth, and Throat: Oral mucosa is moist Cardiovascular: Regular Rate and Rhythm without murmur, gallop or rub. Respiratory: No accessory muscle use or respiratory distress. Lungs are clear to auscultation, no wheezing, rales or rhonchi Back: No CVA tenderness Musculoskeletal: normal ROM, no calf or popliteal tenderness, no lower extremity edema/swelling GI: Abdomen is soft, non-distended. Normal bowel sounds. No masses appreciated. No tenderness to palpation. No rebound, guarding, or rigidity noted. Neurological: A&O x4. No cranial nerve dysfunction observed. No truncal ataxia. Moves all extremities. Sensation intact. Psychiatric: Cooperative and interactive. Crying. Constitutional Vital Signs, click to edit/add: Last Vital Signs Temp 98.1 F 08/12/24 11:43 Pulse 86 08/12/24 13:01 Resp 13 08/12/24 13:01 BP 145/94 H 08/12/24 13:01 Pulse Ox 97 08/12/24 12:50 Course Vital Signs Vital signs: Vital Signs Temperature 98.1 F 08/12/24 11:43 Pulse Rate 102 H 08/12/24 11:43 Respiratory Rate 18 08/12/24 11:43 Blood Pressure 150/90 H 08/12/24 11:43 Pulse Oximetry 98 08/12/24 11:43 Temperature 98.1 F 08/12/24 11:43 Pulse Rate 86 08/12/24 13:01 Respiratory Rate 13 08/12/24 13:01 Blood Pressure 145/94 H 08/12/24 13:01 Pulse Oximetry 97 08/12/24 12:50 MDM - Arrhythmia/Palpitations MDM Narrative Medical decision making narrative: Blood pressure elevated at 150/[address] tech and EKG obtained. Blood drawn and sent for evaluation. EKG is normal. CBC and CMP unremarkable. I spoke with Dr Keenan and let her know BP is 146/94 on recheck. Pt instructed to get rest, take tylenol for headache, stay hydrated, eat well and follow up w [facility] ED return if worrisome symptoms persist. Lab Data Labs: Lab Results 08/12/24 Range/Units 12:11 WBC 10.4 (4.0-11.0) 10^3/uL RBC 4.33 (4.20-5.40) 10^6/uL Hgb 12.9 (12.0-16.0) g/dL Hct 39.8 (36.0-48.0) % MCV 91.9 (81.0-99.0) fL MCH 29.8 (26.7-34.0) pg MCHC 32.4 (29.9-35.2) g/dL RDW 14.5 (11.0-15.0) % Plt Count 275 (150-450) 10^3/uL MPV 9.4 L (9.5-13.5) fL Neut % (Auto) 72.4 (43.0-75.0) % Lymph % (Auto) 17.9 L (20.5-60.0) % [place] % (Auto) 6.8 (1.7-12.0) % Eos % (Auto) 1.9 (0.9-7.0) % Baso % (Auto) 0.4 (0.2-2.0) % Neut # (Auto) 7.5 H (1.4-6.5) 10^3/uL Lymph # (Auto) 1.9 (1.2-3.8) 10^3/uL [place] # (Auto) 0.7 (0.3-0.8) 10^3/uL Eos # (Auto) 0.2 (0.0-0.7) 10^3/uL Baso # (Auto) 0.0 (0.0-0.1) 10^3/uL Abs Immat Gran (auto) 0.06 H (0.00-0.03) 10^3/uL Imm/Tot Granulo (auto) 0.6 H (0.0-0.5) % Sodium 141 (136-145) mmol/L Potassium 3.8 (3.5-5.1) mmol/L Chloride 106 (98-107) mmol/L Carbon Dioxide 25.2 (21.0-32.0) mmol/L Anion Gap 13.6 BUN 6.0 L (7.0-18.0) mg/dL Creatinine 0.46 L (0.55-1.02) mg/dL Est GFR ( Amer) >60 (>=60 mL/min/1.73m^2) Est GFR (Non-Af Amer) >60 (>=60 mL/min/1.73m^2) BUN/Creatinine Ratio 13.0 Glucose 88 (74-106) mg/dL Calcium 9.1 (8.5-10.1) mg/dL Total Bilirubin 0.4 (0.2-1.0) mg/dL AST 23 (15-37) U/L ALT 26 (14-59) U/L Alkaline Phosphatase 136 H (46-116) U/L Total Protein 7.0 (6.4-8.2) g/dL Albumin 2.9 L (3.4-5.0) g/dL Globulin 4.1 g/dL Albumin/Globulin Ratio 0.7 ECG Data Attestation: I personally reviewed and interpreted this ECG as follows: Interpretation: EKG interpretation: Emergency Department physician interpretation. Normal sinus rhythm at 76bpm. Normal axis, normal intervals and no ST segment elevation or depression. Normal EKG. Discharge Plan Discharge Chief Complaint: Arrhythmia/Palpitations Clinical Impression: Exhaustion Patient Disposition: Home, Self-Care Time of Disposition Decision: 13:19 Prescriptions / Home Meds: No Action No Known Home Medications Print Language: Khmer Referrals: Physician,Non-Staff, MD [Primary Care Provider] - 1 week
[2024-08-12 12:48] LABS: Alanine Aminotransferase 26 U/L (14-59); Albumin Globulin Ratio 0.7; Albumin Level 2.9 g/dL (3.4-5.0); Alkaline Phosphatase 136 U/L (46-116); Anion Gap 13.6; Aspartate Amino Transferase 23 U/L (15-37); Bilirubin Total 0.4 mg/dL (0.2-1.0); Calcium 9.1 mg/dL (8.5-10.1); Carbon Dioxide 25.2 mmol/L (21.0-32.0); Chloride 106 mmol/L (98-107); Estimated GFR (African America >60 (>=60 mL/min/1.73m^2); Estimated GFR (Non-African Ame >60 (>=60 mL/min/1.73m^2); Globulin 4.1 g/dL; Glucose 88 mg/dL (74-106); Potassium 3.8 mmol/L (3.5-5.1); Sodium 141 mmol/L (136-145)
== END 2024-08-12 13:32 | disposition home or self-care (01) ==
PROVIDERS: Emergency Provider Emergency Medicine
DX: P96.89 Other specified conditions originating in the perinatal period (principal); R51.9 Headache, unspecified; R42 Dizziness and giddiness; R53.83 Other fatigue
CPT/HCPCS: 36415; 80053; 81001; 85025; 93005; 99284

== ENCOUNTER 2024-08-16 07:27 | Outpatient (OUT) | payer OTHER, SELFPAY ==
--- OUTSIDE RECORDS SUMMARY | 2024-08-16 07:32 | XMS_ITS | CCD ---
Author Organization [facility] Care Team Providers Care Director Software Development Name Role Phone HARSHAL, DR STEVENS Attending [...] Unavailable Tamir Fuentes MD Primary Care Provider [phone] KATRIN, JORGE LUIS R Referring Unavailable MOUSSA, JEET NADIM Attending Unavailable KATRIN, JORGE LUIS R Referring Unavailable Quinton Bibiana MONROY Unavailable KATRIN, JORGE LUIS R Referring Unavailable Unavailable Primary Care Provider Unavailannamaria e QUINTON, BIBIANA Attending Unavailable KATRIN, JORGE LUIS Attending Unavailable DOLCE, EMILY Grimaldo Attending Unavailable QUINTON, BIBIANA Attending Unavailable KATRIN, JORGE LUIS Attending Unavailable KATRIN, JORGE LUIS Attending [...] source) Penicillin Drug Allergy [facility] Repository (20 sources) Penicillin G Drug Allergy 4 [facility] Work Phone: (20 sources) Penicillins; Translations: [PENICILLINS] Drug Allergy 4 [facility] (2 sources) Penicillins Propensity to adverse reactions to drug 4 [facility] Medications Current Medications Medication Drug [...] or chew.. 30 capsule 06/27/2024 06/27/2025 Active [id number] fumarate-FA 28-800 mg-mcg tablet (2 sources) take 1 tablet by mouth in the morning [id number] fumarate-FA 28-800 mg-mcg tablet Take 1 tablet [...] WITH AUTO DIFFon BASOPHILS ABSOLUTE AUTO 0.1 [facility] Basophils/100 WBC (Bld) 0.6 % 0.2 - 2.0 % [facility] Eosinophils/100 WBC (Bld) 2.1 % 0.9 - 7.0 % [facility] Erythrocyte distribution width (RBC) [Ratio] 14.2 % 11.0 - 15.0 % [facility] Hematocrit (Bld) [Volume fraction] 35.8 % Low 36.0 - 48.0 % [facility] Hemoglobin (Bld) [Mass/Vol] 11.8 g/dL Low 12.0 - 16.0 g/dL [facility] IMMATURE GRANULOCYTES ABS AUTO 0.14 High [facility] Immature granulocytes/100 WBC (Bld) 1 % High 0.0 - 0.5 % [facility] Interpretation and review of laboratory results Abnormal [facility] LYMPHOCYTES ABSOLUTE AUTO 2.8 [facility] Lymphocytes/100 WBC (Bld) 20 % Low 20.5 - 60.0 % [facility] MCH (RBC) [Entitic mass] 29.9 pg 26.7 - 34.0 pg [facility] MCHC (RBC) [Mass/Vol] 33 g/dL 29.9 - 35.2 g/dL [facility] MCV (RBC) [Entitic vol] 90.9 fL 81.0 - 99.0 fL [facility] MONOCYTES ABSOLUTE AUTO 1 High [facility] Monocytes/100 WBC (Bld) 7.5 % 1.7 - 12.0 % [facility] NEUTROPHILS ABSOLUTE AUTO 9.6 High [facility] Neutrophils/100 WBC (Bld) 68.8 % 43.0 - 75.0 % [facility] Platelet mean volume (Bld) [Entitic vol] 9.6 fL 9.5 - 13.5 fL [facility] TBH EO # 0.3 [facility] TB PLT [address] [facility] RBC 3.[address] [facility] WBC 13.9 High [facility] WITH PLATELET NO DI FFERENTIALon 08-08-2024 Erythrocyte distribution width (RBC) [Ratio] 14.1 % 11.0 - 15.0 % [facility] Hematocrit (Bld) [Volume fraction] 39.2 % 36.0 - 48.0 % [facility] Hemoglobin (Bld) [Mass/Vol] 12.8 g/dL 12.0 - 16.0 g/dL [facility] Interpretation and review of laboratory results Abnormal [facility] MCH (RBC) [Entitic mass] 29.8 pg 26.7 - 34.0 pg [facility] MCHC (RBC) [Mass/Vol] 32.7 g/dL 29.9 - 35.2 g/dL [facility] MCV (RBC) [Entitic vol] 91.4 fL 81.0 - 99.0 fL [facility] Platelet mean volume (Bld) [Entitic vol] 10.5 fL 9.5 - 13.5 fL [facility] TB PLT [address] [facility] RBC 4.29 [facility] WBC 12.5 High [facility] Urinalysis macro (dipstick) panel (U)on 08-08-2024 Bilirubin, UA Negative Negative - 4(70) +++ mg/dL [facility] Blood, UA Negative Negative - 50 Grey/mcL [facility] Clarity, UA Clear [facility] Color, UA Yellow [facility] Glucose, UA Negative Negative - 1999(110) ++++ mg/dL [facility] Interpretation and review of laboratory results Abnormal [facility] Ketones, UA Positive Negative - 160(16) ++++ mg/dL [facility] Comment on above: trace Leukocytes, UA Negative Negative - 500+++ Juan Alberto/mcL [facility] Nitrite, UA Negative Negative - Positive [facility] pH, UA 6.5 5 - 9 [facility] Protein, UA Trace Negative - 2000(20) ++++ mg/dL [facility] Spec Grav, UA 1.025 1 - 1.03 [facility] Urobilinogen, UA 0.2 0.2 - 12 mg/dL [facility] TB UA (CLEAN/CATCH) UNIVERSITY MANAGER/BERTRAND RO IF IND.on 08-06-2024 BILIRUBIN URINE Negative NEGATIVE [facility] BLOOD URINE Negative NEGATIVE [facility] Clarity (U) CLEAR CLEAR [facility] Color (U) LT. YELLOW YELLOW [facility] GLUCOSE URINE UA Negative NEGATIVE mg/dL [facility] Interpretation and review of laboratory results Abnormal [facility] Ketones Ql (U) Negative NEGATIVE mg/dL [facility] Leukocyte esterase Test strip Ql (U) Negative NEGATIVE [facility] NITRITE URINE Negative NEGATIVE [facility] pH (U) 6.0 [pH] 5.0 - 9.0 [facility] PROTEIN URINE Negative NEG/TRACE mg/dL [facility] SPECIFIC GRAVITY URINE <=1.005 Abnormal 1.005 - 1.025 [facility] URINE MICROSCOPIC INDICATED NO [facility] UROBILINOGEN URINE 0.2 EU/dL 0.2 - 1.0 EU/dL [facility] Urinalysis macro (dipstick) panel (U)on 07-24-2024 Bilirubin, UA Negative Negative - 4(70) +++ mg/dL [facility] Blood, UA Positive Negative - 50 Grey/mcL [facility] Clarity, UA Cloudy [facility] Color, UA Yellow [facility] Glucose, UA Negative Negative - 1999(110) ++++ mg/dL [facility] Interpretation and review of laboratory results Abnormal [facility] Ketones, UA Negative Negative - 160(16) ++++ mg/dL [facility] Leukocytes, UA Positive Negative - 500+++ Juan Alberto/mcL [facility] Nitrite, UA Negative Negative - Positive [facility] pH, UA 7 5 - 9 [facility] Protein, UA Negative Negative - 1999(20) ++++ mg/dL [facility] Spec Grav, UA 1.015 1 - 1.03 [facility] Urobilinogen, UA 0.2 0.2 - 12 mg/dL [facility] ALL MISCELLANEOUS TESTon MISCELLANEOUS TEST COMMENT . [facility] Comment on above: Test Ordered: [id number] Strep Gp B Culture+Rflx Strep Gp B Culture+Rflx Negative CB Reference Range: Negative Centers for Disease Control and Prevention (CDC) and [place] [employer] (ACOG) guidelines [...] resistance to clindamycin is noted. Performed at: [address] [id number] Computer Game Tester: Alex Montes De Oca PhD, Phone: [phone] GROUP B STREP [id number] Group B Streptococcus Colonization Detection Culture [facility] macro (dipstick) panel (U)on 07-18-2024 Bilirubin, UA Negative Negative - 4(70) +++ mg/dL [facility] Blood, UA Negative Negative - 50 Grey/mcL [facility] Clarity, UA Clear [facility] Color, UA Yellow [facility] Glucose, UA Negative Negative - 1999(110) ++++ mg/dL [facility] Interpretation and review of laboratory results Abnormal [facility] Ketones, UA Positive Negative - 160(16) ++++ mg/dL [facility] Comment on above: trace Leukocytes, UA Positive Negative - 500+++ Juan Alberto/mcL [facility] Comment on above: small Nitrite, UA Negative Negative - Positive [facility] pH, UA 7 5 - 9 [facility] Protein, UA Negative Negative - 2000(20) ++++ mg/dL [facility] Spec Grav, UA 1.015 1 - 1.03 [facility] Urobilinogen, UA 1.0 0.2 - 12 mg/dL [facility] TBH UA (CLEAN/CATCH) [facility]IVERSITY MANAGER/BERTRAND RO IF IND.on 07-16-2024 BILIRUBIN URINE Negative NEGATIVE [facility] BLOOD URINE Negative NEGATIVE [facility] Clarity (U) CLEAR CLEAR [facility] Color (U) LT. YELLOW YELLOW [facility] GLUCOSE URINE UA Negative NEGATIVE mg/dL [facility] Interpretation and review of laboratory results Abnormal [facility] Ketones Ql (U) Negative NEGATIVE mg/dL [facility] Leukocyte esterase Test strip Ql (U) Negative NEGATIVE [facility] NITRITE URINE Negative NEGATIVE [facility] pH (U) 6.5 [pH] 5.0 - 9.0 [facility] PROTEIN URINE Negative NEG/TRACE mg/dL [facility] SPECIFIC GRAVITY URINE <=1.005 Abnormal 1.005 - 1.025 [facility] URINE MICROSCOPIC INDICATED NO [facility] UROBILINOGEN URINE 0.2 EU/dL 0.2 - 1.0 EU/dL [facility] Urinalysis macro (dipstick) panel (U)on 07-11-2024 Bilirubin, UA Negative Negative - 4(70) +++ mg/dL [facility] Blood, UA Negative Negative - 50 Grey/mcL [facility] Clarity, UA Clear [facility] Color, UA Yellow [facility] Glucose, UA Negative Negative - 1999(110) ++++ mg/dL [facility] Interpretation and review of laboratory results Abnormal [facility] Ketones, UA Positive Negative - 160(16) ++++ mg/dL [facility] Leukocytes, UA Negative Negative - 500+++ Juan Alberto/mcL [facility] Nitrite, UA Negative Negative - Positive [facility] pH, UA 6 5 - 9 [facility] Protein, UA Negative Negative - 1999(20) ++++ mg/dL [facility] Spec Grav, UA 1.03 1 - 1.03 [facility] Urobilinogen, UA 0.2 0.2 - 12 mg/dL [facility] Urinalysis macro (dipstick) panel (U)on 06-27-2024 Bilirubin, UA Negative Negative - 4(70) +++ mg/dL [facility] Blood, UA Negative Negative - 50 Grey/mcL [facility] Clarity, UA Clear [facility] Color, UA Yellow [facility] Glucose, UA Negative Negative - 1999(110) ++++ mg/dL [facility] Interpretation and review of laboratory results Abnormal [facility] Ketones, UA Positive Negative - 160(16) ++++ mg/dL [facility] Comment on above: 15 Leukocytes, UA Negative Negative - 500+++ Juan Alberto/mcL [facility] Nitrite, UA Negative Negative - Positive [facility] pH, UA 6.5 5 - 9 [facility] Protein, UA Trace Negative - 1999(20) ++++ mg/dL [facility] Spec Grav, UA 1.02 1 - 1.03 [facility] Urobilinogen, UA 2.0 0.2 - 12 mg/dL [facility] Urinalysis macro (dipstick) panel (U)on 06-06-2024 Bilirubin, UA Negative Negative - 4(70) +++ mg/dL [facility] Blood, UA Negative Negative - 50 Grey/mcL [facility] Clarity, UA Clear [facility] Color, UA Yellow [facility] Glucose, UA Negative Negative - 1999(110) ++++ mg/dL [facility] Interpretation and review of laboratory results Abnormal [facility] Ketones, UA Negative Negative - 160(16) ++++ mg/dL [facility] Leukocytes, UA Trace Negative - 500+++ Juan Alberto/mcL [facility] Nitrite, UA Negative Negative - Positive [facility] pH, UA 7 5 - 9 [facility] Protein, UA Negative Negative - 1999(20) ++++ mg/dL [facility] Spec Grav, UA 1.015 1 - 1.03 [facility] Urobilinogen, UA 0.2 0.2 - 12 mg/dL [facility] Urinalysis macro (dipstick) panel (U)on 05-21-2024 Bilirubin, UA Negative Negative - 4(70) +++ mg/dL [facility] Blood, UA Negative Negative - 50 Grey/mcL [facility] Clarity, UA Clear [facility] Color, UA Yellow [facility] Glucose, UA Negative Negative - 1999(110) ++++ mg/dL [facility] Interpretation and review of laboratory results Normal [facility] Ketones, UA Negative Negative - 160(16) ++++ mg/dL [facility] Leukocytes, UA Negative Negative - 500+++ Juan Alberto/mcL [facility] Nitrite, UA Negative Negative - Positive [facility] pH, UA 6 5 - 9 [facility] Protein, UA Negative Negative - 1999(20) ++++ mg/dL [facility] Spec Grav, UA 1.025 1 - 1.03 [facility] Urobilinogen, UA 0.2 0.2 - 12 mg/dL [facility] Urinalysis macro (dipstick) panel (U)on 05-07-2024 Bilirubin, UA Negative Negative - 4(70) +++ mg/dL [facility] Blood, UA Negative Negative - 50 Grey/mcL [facility] Clarity, UA Clear [facility] Color, UA Yellow [facility] Glucose, UA Negative Negative - 1999(110) ++++ mg/dL [facility] Interpretation and review of laboratory results Normal [facility] Ketones, UA Negative Negative - 160(16) ++++ mg/dL [facility] Leukocytes, UA Negative Negative - 500+++ Juan Alberto/mcL [facility] Nitrite, UA Negative Negative - Positive [facility] pH, UA 5 5 - 9 [facility] Protein, UA Negative Negative - 1999(20) ++++ mg/dL [facility] Spec Grav, UA 1.02 1 - 1.03 [facility] Urobilinogen, UA 0.2 0.2 - 12 mg/dL [facility] GLUCOSE TOLERANCE 3 HOURon 07-05-2023 GLUCOSE TOLERANCE 3 HOUR High mg/dL [facility] Comment on above: GLU FAST 86 (<95) Co l: 05/05/24 0808 GLU 1HR 181H (<180) Col: 05/05/24 0912 GLU 2HR 135 (<155) Col: 05/05/24 1012 GLU 3HR 125 (<140) Col: 05/05/24 1112 Interpretation and review of laboratory results Abnormal [facility] ALL CBC WITH AUTO DIFFon BASOPHILS ABSOLUTE AUTO 0.1 [facility] Basophils/100 WBC (Bld) 0.5 % 0.2 - 2.0 % [facility] Eosinophils/100 WBC (Bld) 1.6 % 0.9 - 7.0 % [facility] Erythrocyte distribution width (RBC) [Ratio] 12.9 % 11.0 - 15.0 % [facility] Hematocrit (Bld) [Volume fraction] 37.9 % 36.0 - 48.0 % [facility] Hemoglobin (Bld) [Mass/Vol] 12.5 g/dL 12.0 - 16.0 g/dL [facility] IMMATURE GRANULOCYTES ABS AUTO 0.23 High [facility] Immature granulocytes/100 WBC (Bld) 1.8 % High 0.0 - 0.5 % [facility] Interpretation and review of laboratory results Abnormal [facility] LYMPHOCYTES ABSOLUTE AUTO 2.1 [facility] Lymphocytes/100 WBC (Bld) 17 % Low 20.5 - 60.0 % [facility] MCH (RBC) [Entitic mass] 31.5 pg 26.7 - 34.0 pg [facility] MCHC (RBC) [Mass/Vol] 33 g/dL 29.9 - 35.2 g/dL [facility] MCV (RBC) [Entitic vol] 95.5 fL 81.0 - 99.0 fL [facility] MONOCYTES ABSOLUTE AUTO 0.9 High [facility] Monocytes/100 WBC (Bld) 6.8 % 1.7 - 12.0 % [facility] NEUTROPHILS ABSOLUTE AUTO 9.1 High [facility] Neutrophils/100 WBC (Bld) 72.3 % 43.0 - 75.0 % [facility] Platelet mean volume (Bld) [Entitic vol] 9.5 fL 9.5 - 13.5 fL [facility] TBH EO # 0.2 [facility] TBH PLT 244 [facility] TB RBC 3.[address] [facility] WBC 12.6 High [facility] Urinalysis macro (dipstick) panel (U)on 04-03-2024 Bilirubin, UA Negative Negative - 4(70) +++ mg/dL [facility] Blood, UA Negative Negative - 50 Grey/mcL [facility] Clarity, UA Clear [facility] Color, UA Yellow [facility] Glucose, UA Negative Negative - 1999(110) ++++ mg/dL [facility] Interpretation and review of laboratory results Normal [facility] Ketones, UA Negative Negative - 160(16) ++++ mg/dL [facility] Leukocytes, UA Negative Negative - 500+++ Juan Alberto/mcL [facility] Nitrite, UA Negative Negative - Positive [facility] pH, UA 6.5 5 - 9 [facility] Protein, UA Negative Negative - 1999(20) ++++ mg/dL [facility] Spec Grav, UA 1.02 1 - 1.03 [facility] Urobilinogen, UA 0.2 0.2 - 12 mg/dL [facility] AFP, SERUM, OPEN SPINA BIFID Aon 03-31-2024 AFP MOM 1.42 . [facility] AFP VALUE 88.7 ng/mL . [facility] COMMENT: Comment . [facility] Comment on above: Radha Viveros , Ph.D., [facility] Director References: Available Upon Request. Multiples Of Median Cutoffs For AFP Elevations Ricardo 2.5 Black 2.8 IDD 2.0 Twins 4.5 Abbreviation Definitions IDD - Insulin Dep Diabetes OSBR - Open Spina Bifida Risk For further inquiries contact [facility] at [phone]. This test was developed and its performance characteristics determined by [employer]. It has not been cleared or approved by the Food and Drug Administration. Performed at: [facility], [place], [place] [id number] Computer Game Tester: Priya Jung [facility], Phone: [phone] GEST. AGE ON COLLECTION DATE 20.4 . weeks [facility] GESTAT. AGE BASED ON As provided . [facility] Comment on above: Recalculations are n ot recommended when gestational dating by LMP and ultrasound are within 10 days. INSULIN DEP DIABETES No . [facility] INTERPRETATION Comment . [facility] Comment on above: Interpretation: Scre [...] Customer Services to discuss available options. The [place] [employer] recommends amniocentesis be offered to women age 35 and older. [age] [facility] MULTIPLE GESTATION No . [facility] OSBR RISK 1 IN 3404 . [facility] RACE . [facility] RESULTS Report . [facility] TEST RESULTS: Negative . [facility] WEIGHT 137 . lbs [facility] N N [id number] 1 17 N 1 Y 137 N N N N N White/ [facility] IGP,APTIMA HPV,AGE GDLNon AGE GDLN ACOG TESTING Note . [facility] Comment on above: TESTS RESULT FLAG U NITS REF RANGE LAB Clinician Provided Cytology Information Source.............Cervix Other.............. No. of containers..01 ThinPrep Vial Age Diego BRUNER Martha... 30-65 FLAG LEGEND: L-Low Normal,H-High Normal,LL-Alert Low,HH-Alert High <-Panic Low,>-Panic High,A-Abnormal,AA-Critical Abnormal Performed at: 01 [address] [address] Deysi Tidwell MD, HPV APTIMA Negative Negative [facility] Comment on above: This nucleic acid am plification test detects fourteen high- risk HPV types (16,18,31,33,35,39,45,51,52,56,58,59,66,68) without differentiation. Performed at: =[address] [id number] Computer Game Tester: Deysi Tidwell MD, Phone: [phone] Performed at: [address] [id number] Computer Game Tester: Deysi Tidwell MD, Phone: [phone] IGP, APTIMA HPV, RFX 16/18,45 Note . [facility] Comment on above: TESTS RESULT FLAG UN ITS REF RANGE LAB DIAGNOSIS: 02 NEGATIVE FOR INTRAEPITHELIAL LESION OR MALIGNANCY. Specimen adequacy: 02 Satisfactory for evaluation. Endocervical and/or squamous metaplastic cells (endocervical component) are present. Performed by: Alina Muniz, Load Out Person (ASCP) . 02 Note: Note 02 The [...] <-Panic Low,>-Panic High,A-Abnormal,AA-Critical Abnormal Performed at: [address] [address] Deysi Tidwell MD, SPATULA-ALONE [facility] [...] 0.000 [facility] CHLAMYDIA TRACHOMATIS Not detected [facility] GARDNERELLA VAGINALIS 0.000 [facility] GARDNERELLA VAGINALIS Not detected [facility] Interpretation and review of laboratory results Abnormal [facility] MEGASPHAERA (TYPES 1, 2) 0.000 [facility] MEGASPHAERA (TYPES 1, 2) Not detected [facility] MYCOPLASMA GENITALIUM 0.000 [facility] MYCOPLASMA GENITALIUM Not detected [facility] NEISSERIA GONORRHOEAE 0.000 [facility] NEISSERIA GONORRHOEAE Not detected [facility] TRICHOMONAS VAGINALIS 0.000 [facility] TRICHOMONAS VAGINALIS Not detected [facility] Cytology Cervical or vaginal smear or scraping studyon 03-05-2024 [facility] Urinalysis macro (dipstick) panel (U)on 03-05-2024 Bilirubin, UA Negative Negative - 4(70) +++ mg/dL [facility] Blood, UA Negative Negative - 50 Grey/mcL [facility] Clarity, UA Clear [facility] Color, UA Yellow [facility] Glucose, UA Negative Negative - 1999(110) ++++ mg/dL [facility] Interpretation and review of laboratory results Normal [facility] Ketones, UA Negative Negative - 160(16) ++++ mg/dL [facility] Leukocytes, UA Negative Negative - 500+++ Juan Alberto/mcL [facility] Nitrite, UA Negative Negative - Positive [facility] pH, UA 6.5 5 - 9 [facility] Protein, UA Negative Negative - 1999(20) ++++ mg/dL [facility] Spec Grav, UA 1.020 1 - 1.03 [facility] Urobilinogen, UA 1.0 0.2 - 12 mg/dL [facility] Urinalysis macro (dipstick) panel (U)on 02-06-2024 Bilirubin, UA Negative Negative - 4(70) +++ mg/dL [facility] Blood, UA Negative Negative - 50 Grey/mcL [facility] Clarity, UA Clear [facility] Color, UA Yellow [facility] Glucose, UA Negative Negative - 1999(110) ++++ mg/dL [facility] Interpretation and review of laboratory results Normal [facility] Ketones, UA Negative Negative - 160(16) ++++ mg/dL [facility] Leukocytes, UA Negative Negative - 500+++ Juan Alberto/mcL [facility] Nitrite, UA Negative Negative - Positive [facility] pH, UA 7.0 5 - 9 [facility] Protein, UA Negative Negative - 2000(20) ++++ mg/dL [facility] Spec Grav, UA 1.015 1 - 1.03 [facility] Urobilinogen, UA 0.2 0.2 - 12 mg/dL [facility] CBC without diffon Hematocrit (Bld) [Volume fraction] 40.3 % [facility] Hemoglobin (Bld) [Mass/Vol] 13.3 g/dL [facility] Platelets (Bld) [#/Vol] 329 10*3/uL [facility] Rbc Mcv (Fl) By Automated Count 93.3 [facility] Chlamydia/GC by PCR Mariaa Sw abon 01-27-2024 Chlamydia Dna(Pcr) Not detected [facility] Gonorrhoeae Dna(Pcr) Not detected [facility] HIV 1&2 AB/AG Screen (P24 AG )on 01-27-2024 HIV 1&2 AB/AG Non-Reactive [facility] Hepatitis B surface antigeno n 01-27-2024 Hepatitis B Surface Antigen Negative [facility] Hepatitis C(HCV) Ab w/ Refle x to PCRon 01-27-2024 HCV Ab Ql (S) non [facility] No Panel Informationon 01-26 [facility] Rubella IGG immune statuson 01-27-2024 Rubella immune IgG 9.62 [facility] Syphilis Total(Unknown Syphi lis Status)on 01-27-2024 Syphilis Non-Reactive [facility] Type and screenon 01-27-2024 Abo/Rh(D) Positive [facility] LIPID PROFILEon 03-29-2022 CHOL-HDL RATIO NORM SEE BELOW Normal [facility] Comment on above: Result Comment: 3.3 - 4.4 LOW RISK 4.4 - 7.1 AVERAGE RISK 7.1 - 11.0 MODERATE RISK >11.0 HIGH RISK Performed By: #### L IPID #### [facility] [address] [place] [address] Dr. Parth Lucero Cholesterol [Mass/Vol] 197 mg/dL Normal <=200 [facility] Comment on above: Performed By: #### L IPID #### [facility] [address] [address] [address] Parth Lucero Cholesterol in HDL [Mass/Vol] 66 mg/dL Critically high 40-60 [facility] Comment on above: Performed By: #### L IPID #### [facility] [address] [address] [address] Parth Lucero Cholesterol in LDL [Mass/Vol] 120.0 mg/dL Normal [facility] Comment on above: Performed By: #### L IPID #### [facility] [address] [address] [address] Parth Lucero Cholesterol.total/Ch olesterol in HDL [Mass ratio] 3.0 {ratio} Normal [facility] Comment on above: Performed By: #### L IPID #### [facility] [address] [address] [address] Parth Lucero HDL NORMAL > or = 60 mg/dl - LO W CARDIOVASCULAR RISK <40 mg/dl - HIGH CARDIOVASCULAR RISK Normal [facility] Comment on above: Performed By: #### L IPID #### [facility] [address] [address] [address] Parth Lucero LDL CALC NORMAL SEE BELOW Normal [facility] Comment on above: Result Comment: <100 mg/dl OPTIMAL 100 - 129 mg/dl NEAR OR ABOVE OPTIMAL 130 - 159 mg/dl BORDERLINE HIGH 160 - 189 mg/dl HIGH >190 mg/dl VERY HIGH Performed By: #### L IPID #### [facility] [address] [address] [address] Parth Lucero Triglyceride [Mass/Vol] 55 mg/dL Normal <=[address] [facility] Comment on above: Performed By: #### L IPID #### [facility] [address] [place] [address] Dr. Parth Lucero VLDL CALC 11.0 mg/dL Normal [facility] Comment on above: Performed By: #### L IPID #### [facility] [address] [address] [address] Parth Lucero CBC AUTO DIFFon 01-08-2022 BASO # 0.0 103/ul Normal 0.0-0.1 [facility] Comment on above: Performed By: #### [id number] #### [facility] [address] [place] [address] Dr. Parth Lucero Basophils/100 WBC (Bld) 0.3 % Normal 0.2-2.0 [facility] Comment on above: Performed By: #### 4 [id number] #### [facility] [address] [place] [address] Dr. Parth Lucero EO # 0.1 103/ul Normal 0.0-0.7 [facility] Comment on above: Performed By: #### 4 [id number] #### [facility] [address] [place] [address] Dr. Parth Lucero Eosinophils/100 WBC (Bld) 0.4 % Critically low 0.9-7.0 [facility] Comment on above: Performed By: #### 4 [id number] #### [facility] [address] [place] [address] Dr. Parth Luecro Erythrocyte distribution width (RBC) [Ratio] 13.4 % Normal 11.0-15.0 [facility] Comment on above: Performed By: #### 4 [id number] #### [facility] [address] [place] [address] Dr. Parth Lucero Hematocrit (Bld) [Volume fraction] 36.0 % Normal 36.0-48.0 [facility] Comment on above: Performed By: #### 4 [id number] #### [facility] [address] [place] [address] Dr. Parth Lucero Hemoglobin (Bld) [Mass/Vol] 12.1 g/dL Normal 12.0-16.0 [facility] Comment on above: Performed By: #### 4 [id number] #### [facility] [address] [place] [address] Dr. Parth Lucero IG # 0.10 10e3/ul Critically high 0.00-0.03 [facility] Comment on above: Performed By: #### 4 [id number] #### [facility] [address] [place] [address] Dr. Parth Lucero IG % 0.7 % Critically high 0.0-0.5 [facility] Comment on above: Performed By: #### [id number] #### [facility] [address] [place] [address] Dr. Parth Lucero LYMPH # 2.1 103/ul Normal 1.2-3.8 [facility] Comment on above: Performed By: #### 4 [id number] #### [facility] [address] [place] [address] Dr. Parth Lucero Lymphocytes/100 WBC (Bld) 14.0 % Critically low 20.5-60.0 [facility] Comment on above: Performed By: #### 4 [id number] #### [facility] [address] [place] [address] Dr. Parth Lucero MANUAL DIFF REQ NO Normal [facility] Comment on above: Performed By: #### 4 [id number] #### [facility] [address] [place] [address] Dr. Parth Lucero MCH (RBC) [Entitic mass] 31.0 pg Normal 26.7-34.0 [facility] Comment on above: Performed By: #### 4 [id number] #### [facility] [address] [place] [address] Dr. Parth Lucero MCHC (RBC) [Mass/Vol] 33.6 g/dL Normal 29.9-35.2 [facility] Comment on above: Performed By: #### 4 [id number] #### [facility] [address] [place] [address] Dr. Parth Lucero MCV (RBC) [Entitic vol] 92.3 fL Normal 81.0-99.0 [facility] Comment on above: Performed By: #### 4 [id number] #### [facility] [address] [place] [address] Dr. Parth Lucero MONO # 1.2 103/ul Critically high 0.3-0.8 [facility] Comment on above: Performed By: #### 4 [id number] #### [facility] [address] [address] [address] Parth Lucero Monocytes/100 WBC (Bld) 7.7 % Normal 1.7-12.0 [facility] Comment on above: Performed By: #### 4 [id number] #### [facility] [address] [address] [address] Parth Lucero NEUT # 11.7 103/ul Critically high 1.4-6.5 [facility] Comment on above: Performed By: #### 4 [id number] #### [facility] [address] [place] [address] Dr. Parth Lucero Neutrophils/100 WBC (Bld) 76.9 % Critically high 43.0-75.0 [facility] Comment on above: Performed By: #### 4 [id number] #### [facility] [address] [place] [address] Dr. Parth Lucero Platelet mean volume (Bld) [Entitic vol] 10.0 fL Normal 9.5-13.5 [facility] Comment on above: Performed By: #### 4 [id number] #### [facility] [address] [place] [address] Dr. Parth Lucero PLT 231 103/ul Normal 150-450 [facility] Comment on above: Performed By: #### 4 [id number] #### [facility] [address] [place] [address] Dr. Parth Lucero RBC 3.90 106/ul Critically low 4.20-5.40 [facility] Comment on above: Performed By: #### 4 [id number] #### [facility] [address] [place] [address] Dr. Parth Lucero WBC 15.2 103/ul Critically high 4.0-11.0 [facility] Comment on above: Performed By: #### 4 [id number] #### [facility] [address] [place] [address] Dr. Parth Lucero CBC AUTO DIFFon 01-07-2022 BASO # 0.0 103/ul Normal 0.0-0.1 [facility] Comment on above: Performed By: #### C BC #### [facility] [address] [address] [address] Parth Lucero Basophils/100 WBC (Bld) 0.4 % Normal 0.2-2.0 [facility] Comment on above: Performed By: #### C BC #### [facility] [address] [address] [address] Parth Lucero EO # 0.1 103/ul Normal 0.0-0.7 [facility] Comment on above: Performed By: #### C BC #### [facility] [address] [address] [address] Parth Lucero Eosinophils/100 WBC (Bld) 1.1 % Normal 0.9-7.0 [facility] Comment on above: Performed By: #### C BC #### [facility] [address] [place] [address] Dr. Parth Lucero Erythrocyte distribution width (RBC) [Ratio] 13.3 % Normal 11.0-15.0 [facility] Comment on above: Performed By: #### C BC #### [facility] [address] [place] [address] Dr. Parth Lucero Hematocrit (Bld) [Volume fraction] 39.2 % Normal 36.0-48.0 [facility] Comment on above: Performed By: #### C BC #### [facility] [address] [place] [address] Dr. Parth Lucero Hemoglobin (Bld) [Mass/Vol] 13.3 g/dL Normal 12.0-16.0 [facility] Comment on above: Performed By: #### C BC #### [facility] [address] [place] [address] Dr. Parth Luceor IG # 0.10 10e3/ul Critically high 0.00-0.03 [facility] Comment on above: Performed By: #### C BC #### [facility] [address] [address] [address] Parth Lucero IG % 1.0 % Critically high 0.0-0.5 [facility] Comment on above: Performed By: #### C BC #### [facility] [address] [address] [address] Parth Lucero LYMPH # 1.8 103/ul Normal 1.2-3.8 [facility] Comment on above: Performed By: #### C BC #### [facility] [address] [address] [address] Parth Lucero Lymphocytes/100 WBC (Bld) 18.0 % Critically low 20.5-60.0 [facility] Comment on above: Performed By: #### C BC #### [facility] [address] [place] [address] Dr. Parth Lucero MANUAL DIFF REQ NO Normal [facility] Comment on above: Performed By: #### C BC #### [facility] [address] [place] [address] Dr. Parth Lucero MCH (RBC) [Entitic mass] 31.1 pg Normal 26.7-34.0 [facility] Comment on above: Performed By: #### C BC #### [facility] [address] [place] [address] Dr. Parth Lucero MCHC (RBC) [Mass/Vol] 33.9 g/dL Normal 29.9-35.2 [facility] Comment on above: Performed By: #### C BC #### [facility] [address] [place] [address] Dr. Parth Lucero MCV (RBC) [Entitic vol] 91.8 fL Normal 81.0-99.0 [facility] Comment on above: Performed By: #### C BC #### [facility] [address] [place] [address] Dr. Parth Lucero MONO # 1.1 103/ul Critically high 0.3-0.8 [facility] Comment on above: Performed By: #### C BC #### [facility] [address] [place] [address] Dr. Parth Lucero Monocytes/100 WBC (Bld) 11.3 % Normal 1.7-12.0 [facility] Comment on above: Performed By: #### C BC #### [facility] [address] [address] [address] Parth Lucero NEUT # 6.9 103/ul Critically high 1.4-6.5 [facility] Comment on above: Performed By: #### C BC #### [facility] [address] [address] [address] Parth Lucero Neutrophils/100 WBC (Bld) 68.2 % Normal 43.0-75.0 [facility] Comment on above: Performed By: #### C BC #### [facility] [address] [place] [address] Dr. Parth Lucero Platelet mean volume (Bld) [Entitic vol] 10.6 fL Normal 9.5-13.5 [facility] Comment on above: Performed By: #### C BC #### [facility] [address] [place] [address] Dr. Parth Lucero PLT 258 103/ul Normal 150-[address] [facility] Comment on above: Performed By: #### C BC #### [facility] [address] [place] [address] Dr. Parth Lucero RBC 4.27 106/ul Normal 4.20-5.[address] [facility] Comment on above: Performed By: #### C BC #### [facility] [address] [place] [address] Dr. Parth Lucero WBC 10.1 103/ul Normal 4.0-11.[address] [facility] Comment on above: Performed By: #### C BC #### [facility] [address] [place] [address] Dr. Parth Lucero Covid-19 PCR ([facility])on 12-19 SARS-CoV-2 (COVID-19) RNA RIGOBERTO+probe Ql (Unsp spec) Not detected Normal NOT DETECTED [facility] Comment on above: Result Comment: When [...] for this test is supported by the [place] of Health and Human Service's declaration that [...] longer be used). Performed By: #### 4 [id number] #### [facility] [address] [place] [address] Dr. Parth Lucero DRUG SCREEN RAPID (URINE)on 01-07-2022 AMP Negative Normal NEGATIVE [facility] Comment on above: Performed By: #### L IPID #### [facility] [address] [place] [address] Dr. Parth Luceor BAR Negative Normal NEGATIVE [facility] Comment on above: Performed By: #### L IPID #### [facility] [address] [place] [address] Dr. Parth Lucero BUP Negative Normal NEGATIVE [facility] Comment on above: Performed By: #### L IPID #### [facility] [address] [place] [address] Dr. Parth Lucero BZO Negative Normal NEGATIVE [facility] Comment on above: Performed By: #### L IPID #### [facility] [address] [place] [address] Dr. Parth Lucero AMINTA Negative Normal NEGATIVE [facility] Comment on above: Performed By: #### L IPID #### [facility] [address] [place] [address] Dr. Parth Lucero CUT-OFFS SEE BELOW Normal [facility] Comment on above: Result Comment: AMP [...] By: #### L IPID #### [facility] [address] [place] [address] Dr. Parth Lucero DRUG CUT HEADER DRUG CLASS TEST SYSTEM CUT-OFF CONCENTRATIONS ARE FOLLOWS: Normal [facility] Comment on above: Performed By: #### L IPID #### [facility] [address] [place] [address] Dr. Parth Lucero mAMP Negative Normal NEGATIVE [facility] Comment on above: Performed By: #### L IPID #### [facility] [address] [place] [address] Dr. Parth Lucero MTD Negative Normal NEGATIVE [facility] Comment on above: Performed By: #### L IPID #### [facility] [address] [place] [address] Dr. Parth Lucero OPI Negative Normal NEGATIVE [facility] Comment on above: Performed By: #### L IPID #### [facility] [address] [place] [address] Dr. Parth Lucero OXY Negative Normal NEGATIVE [facility] Comment on above: Performed By: #### L IPID #### [facility] [address] [place] [address] Dr. Parth Lucero PCP Negative Normal NEGATIVE [facility] Comment on above: Performed By: #### L IPID #### [facility] [address] [place] [address] Dr. Parth Lucero PPX Negative Normal NEGATIVE [facility] Comment on above: Performed By: #### L IPID #### [facility] [address] [place] [address] Dr. Parth Lucero TCA Negative Normal NEGATIVE [facility] Comment on above: Performed By: #### L IPID #### [facility] [address] [place] [address] Dr. Parth Lucero THC Negative Normal NEGATIVE [facility] Comment on above: Performed By: #### L IPID #### [facility] [address] [place] [address] Dr. Parth Lucero TYPE AND SCREENon 01-07-2022 TYPE AND SCREEN Negative Normal [facility] Comment on above: Performed By: #### T NS #### [facility] [address] [place] [address] Dr. Parth Lucero GROUP B STREP CULTUREon 11-19 S. agalactiae Ag Ql (Unsp spec) Culture Observations: NEGATIVE FOR GROUP B STREPTOCOCCUS. Normal [facility] Comment on above: Performed By: #### 4 [id number] #### [facility] [address] [place] [address] Dr. Parth Lucero GTT 3 HR PREGon 2021 Glucose [Mass/Vol] 93 mg/dL Normal 74-106 [facility] Comment on above: Performed By: #### G TT3P #### [facility] [address] [place] [address] Dr. Parth Lucero Glucose [Mass/Vol] 173 mg/dL Normal [facility] Comment on above: Performed By: #### G TT3P #### [facility] [address] [place] [address] Dr. Parth Lucero Glucose [Mass/Vol] 149 mg/dL Normal [facility] Comment on above: Performed By: #### G TT3P #### [facility] [address] [place] [address] Dr. Parth Lucero Glucose [Mass/Vol] 128 mg/dL Normal [facility] Comment on above: Performed By: #### G TT3P #### [facility] [address] [place] [address] Dr. Parth Lucero GLUCOSE - 1HRon 10-09-2021 Glucose [Mass/Vol] 150 mg/dL Critically high 74-106 [facility] Comment on above: Performed By: #### G [id number] #### [facility] [address] [place] [address] Dr. Parth Lucero HEMOGRAM AND PLATELon 2021 Hematocrit (Bld) [Volume fraction] 37.6 % Normal 36.0-48.0 [facility] Comment on above: Performed By: #### H H #### [facility] [address] [place] [address] Dr. Parth Lucero Hemoglobin (Bld) [Mass/Vol] 12.3 g/dL Normal 12.0-16.0 [facility] Comment on above: Performed By: #### H H #### [facility] [address] [place] [address] Dr. Parth Lucero MCH (RBC) [Entitic mass] 31.2 pg Normal 26.7-34.0 [facility] Comment on above: Performed By: #### H H #### [facility] [address] [place] [address] Dr. Parth Lucero MCHC (RBC) [Mass/Vol] 32.7 g/dL Normal 29.9-35.2 [facility] Comment on above: Performed By: #### H H #### [facility] [address] [place] [address] Dr. Parth Lucero MCV (RBC) [Entitic vol] 95.4 fL Normal 81.0-99.0 [facility] Comment on above: Performed By: #### H H #### [facility] [address] [place] [address] Dr. Parth Lucero PLT 240 103/ul Normal 150-[address] [facility] Comment on above: Performed By: #### H H #### [facility] [address] [place] [address] Dr. Parth Lucero RBC 3.94 106/ul Critically low 4.20-5.40 [facility] Comment on above: Performed By: #### H H #### [facility] [address] [place] [address] Dr. Parth Lucero WBC 9.7 103/ul Normal 4.0-11.[address] [facility] Comment on above: Performed By: #### H H #### [facility] [address] [place] [address] Dr. Parth Lucero PAP ACOG PANEL 2: 21 to 29on 09-02-2021 . . Normal [facility] Comment on above: Performed By: #### 4 [id number] #### [facility] [address] [place] [address] Dr. Parth Lucero Age Gdln ACOG Testing - [facility] Comment on above: Performed By: #### 4 [id number] #### [facility] [address] [place] [address] Dr. Parth Lucero DIAGNOSIS: Comment [facility] Comment on above: Result Comment: NEGA TIVE FOR INTRAEPITHELIAL LESION OR MALIGNANCY. Performed By: #### 4 [id number] #### [facility] [address] [place] [address] Dr. Parth Lucero Methodology: Comment [facility] Comment on above: Result Comment: This liquid based ThinPrep(R) pap test was screened with the use of an image guided system. Performed By: #### 4 [id number] #### [facility] [address] [place] [address] Dr. Parth Lucero Note: Comment [facility] Comment on above: Result Comment: The Pap smear is a screening test designed to aid in the detection of premalignant and malignant conditions of the uterine cervix. It is not a diagnostic procedure and should not be used as the sole means of detecting cervical cancer. Both false-positive and false-negative reports do occur. . Performed By: #### 4 [id number] #### [facility] [address] [place] [address] Dr. Parth Lucero Performed by: Comment [facility] Comment on above: Result Comment: Vivian Paris, Load Out Person (ASCP) Performed By: #### 4 [id number] #### [facility] [address] [place] [address] Dr. Parth Lucero Reflex Criteria: Comment [facility] Comment on above: Result Comment: The HPV DNA reflex criteria were not met with this specimen result therefore, no HPV testing was performed. . Performed By: #### 4 [id number] #### [facility] [address] [address] [address] Parth Lucero Specimen adequacy: Comment Normal [facility] Comment on above: Result Comment: Sati sfactory for evaluation. No endocervical component is identified. Performed By: #### 4 [id number] #### [facility] [id number] Parth Lucero US PREG ANATOMY SINGLEon [...] by ultrasound, 56% by expected EDC; FL/AC: 0.393334 FL/BPD: 0.272946 HC/AC: 1.430289 GESTATIONAL AGE: Age by EDC: 21 weeks 0 days ARMANI by EDC: 01/12/2022 Age by current US: 20 weeks 1 day ARMANI by current US: 01/11/2022 IMPRESSION: Normal anatomy scan *Reference: [employer] Practice Guideline for the performance of Obstetric Ultrasound Examinations, March 20, 2007. Electronically authenticated by: ALONSO SANDERS Date: 2021-09-01 16:[address] [facility] [facility] CHLAMYDIA/GONOCOCCUS RIGOBERTO (SW AB/URINE/PAPon 08-29-2021 Chlamydia trachomatis, RIGOBERTO Negative Normal Negative [facility] Comment on above: Performed By: #### L IPID #### [facility] [address] [address] [address] Parth Lucero Neisseria gonorrhoeae, RIGOBERTO Negative Normal Negative [facility] Comment on above: Performed By: #### L IPID #### [facility] [address] [address] [address] Parth Lucero AFP MATERNAL FOR SPINA BIFID Aon 08-18-2021 AFP MoM 1.13 Normal [facility] Comment on above: Performed By: #### [id number] #### [facility] [address] [address] [address] Parth Lucero AFP Value 52.2 ng/mL Normal [facility] Comment on above: Performed By: #### [id number] #### [facility] [address] [address] [address] Parth Lucero AFP, Serum for Spina Bifida Report Normal [facility] Comment on above: Performed By: #### [id number] #### [facility] [address] [address] [address] Parth Lucero Comment Comment Normal [facility] Comment on above: Result Comment: Ruth Viveros, Ph.D., [facility] Director . References: Available Upon Request. . Multiples Of Median Cutoffs For AFP Elevations Ricardo 2.5 Black 2.8 IDD 2.0 Twins 4.5 Abbreviation Definitions IDD - Insulin Dep Diabetes OSBR - Open Spina Bifida Risk . For further inquiries contact [facility] at [phone]. Performed By: #### [id number] #### [facility] [address] [place] [address] Dr. Parth Modi Age Collection Date 18.0 weeks Normal [facility] Comment on above: Performed By: #### [id number] #### [facility] [address] [address] [address] Parth Lucero Gestat, Age Based on LMP Normal [facility] Comment on above: Result Comment: Reca lculations are not recommended when gestational dating by LMP and ultrasound are within 10 days. Performed By: #### [id number] #### [facility] [address] [place] [address] Dr. Parth Lucero Insulin Dep Diabetes No Normal [facility] Comment on above: Performed By: #### [id number] #### [facility] [address] [place] [address] Dr. Parth Lucero Interpretation Comment Normal [facility] Comment on above: Result Comment: Inte [...] Customer Services to discuss available options. The [employer] recommends amniocentesis be offered to women age 35 and older. Performed By: #### 4 [id number] #### [facility] [address] [place] [address] Dr. Prath Lucero [age] Normal [facility] Comment on above: Performed By: #### [id number] #### [facility] [address] [place] [address] Dr. Parth Lucero Multiple Gestation No Normal [facility] Comment on above: Performed By: #### 4 [id number] #### [facility] [address] [place] [address] Dr. Parth Lucero OSBR Risk 1 [place] 8106 Normal [facility] Comment on above: Performed By: #### 4 [id number] #### [facility] [address] [place] [address] Dr. Parth Lucero PDF . Normal [facility] Comment on above: Result Comment: This test was developed and its performance characteristics determined by [employer]. It has not been cleared or approved by the Food and Drug Administration. Performed By: #### [id number] #### [facility] [address] [place] [address] Dr. Parth Lucero Race Normal [facility] Comment on above: Performed By: #### 4 [id number] #### [facility] [address] [place] [address] Dr. Parth Lucero Test Results: Negative Normal [facility] Comment on above: Performed By: #### 4 [id number] #### [facility] [address] [place] [address] Dr. Parth Lucero HEP B SURFACE ANTIGEN SCREEN on 06-25-2021 HBsAg Screen Negative Normal Negative [facility] Comment on above: Performed By: #### H BSANS #### [facility] [address] [place] [address] Dr. Parth Lucero HEPATITIS C VIRUS AB W/ REFL EX QUANTon 06-25-2021 HCV AB <0.1 Normal 0.0-0.9 [facility] Comment on above: Performed By: #### 4 [id number] #### [facility] [address] [place] [address] Dr. Parth Lucero Interpretation: Comment Normal [facility] Comment on above: Result Comment: Nega tive Not infected with HCV, unless recent infection is suspected or other evidence exists to indicate HCV infection. Performed By: #### 4 [id number] #### [facility] [address] [place] [address] Dr. Parth Lucero HIV 1 AND 2 WITH REFLEXon HIV Screen 4th Generation wRfx Non-Reactive Normal Non Reactive [facility] Comment on above: Performed By: #### L IPID #### [facility] [address] [place] [address] Dr. Parth Lucero RPR QUANTon 06-25-2021 Rapid Plasma Reagin, Quant Non-Reactive Normal NonRea<1:[address] [facility] Comment on above: Performed By: #### L IPID #### [facility] [address] [place] [address] Dr. Parth Lucero RUBELLA AB IGGon 06-25-2021 Rubella Antibodies, IgG 13.00 index Normal Immune >0.99 [facility] Comment on above: Result Comment: Non- immune <0.90 Equivocal 0.90 - 0.99 Immune >0.99 Performed By: #### 4 [id number] #### [facility] [address] [place] [address] Dr. Parth Lucero CBC AUTO DIFFon 06-23-2021 BASO # 0.0 103/ul Normal 0.0-0.1 [facility] Comment on above: Performed By: #### L IPID #### [facility] [address] [place] [address] Dr. Parth Lucero Basophils/100 WBC (Bld) 0.3 % Normal 0.2-2.0 [facility] Comment on above: Performed By: #### L IPID #### [facility] [address] [place] [address] Dr. Parth Lucero EO # 0.1 103/ul Normal 0.0-0.7 [facility] Comment on above: Performed By: #### L IPID #### [facility] [address] [place] [address] Dr. Parth Lucero Eosinophils/100 WBC (Bld) 1.1 % Normal 0.9-7.0 [facility] Comment on above: Performed By: #### L IPID #### [facility] [address] [place] [address] Dr. Parth Lucero Erythrocyte distribution width (RBC) [Ratio] 12.7 % Normal 11.0-15.0 [facility] Comment on above: Performed By: #### L IPID #### [facility] [address] [place] [address] Dr. Parth Lucero Hematocrit (Bld) [Volume fraction] 38.2 % Normal 36.0-48.0 [facility] Comment on above: Performed By: #### L IPID #### [facility] [address] [place] [address] Dr. Parth Lucero Hemoglobin (Bld) [Mass/Vol] 13.0 g/dL Normal 12.0-16.0 [facility] Comment on above: Performed By: #### L IPID #### [facility] [address] [address] [address] Parth Lucero IG # 0.04 10e3/ul Critically high 0.00-0.03 [facility] Comment on above: Performed By: #### L IPID #### [facility] [address] [address] [address] Parth Lucero IG % 0.4 % Normal 0.0-0.5 [facility] Comment on above: Performed By: #### L IPID #### [facility] [address] [address] [address] Parth Lucero LYMPH # 2.3 103/ul Normal 1.2-3.8 [facility] Comment on above: Performed By: #### L IPID #### [facility] [address] [place] [address] Dr. Parth Lucero Lymphocytes/100 WBC (Bld) 23.8 % Normal 20.5-60.0 [facility] Comment on above: Performed By: #### L IPID #### [facility] [address] [place] [address] Dr. Parth Lucero MANUAL DIFF REQ NO Normal [facility] Comment on above: Performed By: #### L IPID #### [facility] [address] [place] [address] Dr. Parth Lucero MCH (RBC) [Entitic mass] 31.6 pg Normal 26.7-34.0 [facility] Comment on above: Performed By: #### L IPID #### [facility] [address] [address] [address] Parth Lucero MCHC (RBC) [Mass/Vol] 34.0 g/dL Normal 29.9-35.[address] [facility] Comment on above: Performed By: #### L IPID #### [facility] [address] [place] [address] Dr. Parth Lucero MCV (RBC) [Entitic vol] 92.9 fL Normal 81.0-99.0 [facility] Comment on above: Performed By: #### L IPID #### [facility] [address] [address] [address] Parth Lucero MONO # 0.8 103/ul Normal 0.3-0.[address] [facility] Comment on above: Performed By: #### L IPID #### [facility] [address] [place] [address] Dr. Parth Lucero Monocytes/100 WBC (Bld) 7.6 % Normal 1.7-12.[address] [facility] Comment on above: Performed By: #### L IPID #### [facility] [address] [place] [address] Dr. Parth Lucero NEUT # 6.6 103/ul Critically high 1.4-6.5 [facility] Comment on above: Performed By: #### L IPID #### [facility] [address] [place] [address] Dr. Parth Lucero Neutrophils/100 WBC (Bld) 66.8 % Normal 43.0-75.[address] [facility] Comment on above: Performed By: #### L IPID #### [facility] [address] [place] [address] Dr. Parth Lucero Platelet mean volume (Bld) [Entitic vol] 9.4 fL Critically low 9.5-13.[address] [facility] Comment on above: Performed By: #### L IPID #### [facility] [address] [place], [place] [id number] Dr. Parth Lucero PLT 320 103/ul Normal 150-[address] [facility] Comment on above: Performed By: #### L IPID #### [facility] [address] [place] [address] Dr. Parth Lucero RBC 4.11 106/ul Critically low 4.20-5.40 [facility] Comment on above: Performed By: #### L IPID #### [facility] [address] [place] [address] Dr. Parth Lucero WBC 9.8 103/ul Normal 4.0-11.[address] [facility] Comment on above: Performed By: #### L IPID #### [facility] [address] [place] [address] Dr. Parth Lucero CULTURE URINEon 06-23-2021 CULTURE URINE Culture Observations : MODERATE GROWTH OF MIXED GENITAL BERNARDINO. NO POTENTIAL PATHOGENS SEEN. Normal [facility] Comment on above: Performed By: #### U RCX #### [facility] [address] [place] [address] Dr. Parth Lucero GLYCOHEMOGLOBIN A1Con 2021 ADA RECOMMENDATION ADA THERAPEUTIC TARGET 6.0 - 7.0 ACTION SUGGESTED > 7.0 Normal [facility] Comment on above: Performed By: #### A 1C #### [facility] [address] [place] [address] Dr. Parth Lucero Glucose [Mass/Vol] 105 mg/dL Normal [facility] Comment on above: Performed By: #### A 1C #### [facility] [address] [place] [address] Dr. Parth Lucero HbA1c (Bld) [Mass fraction] 5.3 % Normal <=6.0 [facility] Comment on above: Performed By: #### A 1C #### [facility] [address] [place] [address] Dr. Parth Lucero TAYLA BOX TEST PT SEND OUTo n 06-23-2021 SENT TO REF LAB 06/23/2021 Normal [facility] Comment on above: Performed By: #### 4 [id number] #### [facility] [address] [place] [address] Dr. Parth Lucero TYPE AND SCREENon 06-23-2021 TYPE AND SCREEN Negative Normal [facility] Comment on above: Performed By: #### 4 [id number] #### [facility] [address] [place] [address] Dr. Parth Lucero US PREG TVon 06-15-2021 [...] by: ALONSO SANDERS Date: 2021-06-15 09:44 Normal [facility] Auth for Release of Medical Records 06-05-2021 Auth for Release of Medical Records [id number] Normal [facility] Vital Signs Date Time Vital Sign Value Performing Clinician Facility 08-08-2024 15:54-0500 Body mass index (BMI) [Ratio] 29.94 kg/m2 Jorge Luis Katrin DO Work Phone: [facility] 08-08-2024 15:54-0500 Body weight 79.11 kg Jorge Luis Katrin DO Work Phone: [facility] 08-08-2024 15:54-0500 Diastolic blood pressure 84 mm[Hg] Jorge Luis Katrin DO Work Phone: [facility] 08-08-2024 15:54-0500 Systolic blood pressure 126 mm[Hg] Jorge Luis Katrin DO Work Phone: [facility] 08-01-2024 15:40-0500 Body mass index (BMI) [Ratio] 29.49 kg/m2 Jorge Luis Katrin DO Work Phone: [facility] 08-01-2024 15:40-0500 Body weight 77.93 kg Jorge Luis Katrin DO Work Phone: [facility] 08-01-2024 15:40-0500 Diastolic blood pressure 82 mm[Hg] Jorge Luis Katrin DO Work Phone: [facility] 08-01-2024 15:40-0500 Systolic blood pressure 122 mm[Hg] Jorge Luis Katrin DO Work Phone: [facility] 07-24-2024 15:18-0500 Body mass index (BMI) [Ratio] 29.66 kg/m2 Bibiana Brooklyn PA Work Phone: [facility] 07-24-2024 15:18-0500 Body weight 78.38 kg Bibiana Quinton PA Work Phone: [facility] 07-24-2024 15:18-0500 Diastolic blood pressure 82 mm[Hg] Bibiana Quinton PA Work Phone: [facility] 07-24-2024 15:18-0500 Systolic blood pressure 130 mm[Hg] Bibiana Quinton PA Work Phone: [facility] 07-18-2024 16:25-0500 Body mass index (BMI) [Ratio] 28.84 kg/m2 Jorge Luis Katrin DO Work Phone: [facility] 07-18-2024 16:25-0500 Body weight 76.2 kg Jorge Luis Katrin DO Work Phone: [facility] 07-18-2024 16:25-0500 Diastolic blood pressure 76 mm[Hg] Jorge Luis Katrin DO Work Phone: [facility] 07-18-2024 16:25-0500 Systolic blood pressure 114 mm[Hg] Jorge Luis Katrin DO Work Phone: [facility] 07-11-2024 16:13-0500 Body mass index (BMI) [Ratio] 29.15 kg/m2 Bibiana Brooklyn PA Work Phone: [facility] 07-11-2024 16:13-0500 Body weight 77.02 kg Biibana Brooklyn PA Work Phone: [facility] 07-11-2024 16:13-0500 Diastolic blood pressure 74 mm[Hg] Bibiana Brooklyn PA Work Phone: [facility] 07-11-2024 16:13-0500 Systolic blood pressure 112 mm[Hg] Bibiana Quinton PA Work Phone: [facility] 06-27-2024 16:21-0500 Body mass index (BMI) [Ratio] 27.98 kg/m2 Jorge Luis Katrin DO Work Phone: [facility] 06-27-2024 16:21-0500 Body weight 73.94 kg Jorge Luis Katrin DO Work Phone: [facility] 06-27-2024 16:21-0500 Diastolic blood pressure 70 mm[Hg] Jorge Luis Katrin DO Work Phone: [facility] 06-27-2024 16:21-0500 Systolic blood pressure 112 mm[Hg] Jorge Luis Katrin DO Work Phone: [facility] 06-06-2024 16:04-0500 Body mass index (BMI) [Ratio] 27.46 kg/m2 Bibiana MONROY Work Phone: [facility] 06-06-2024 16:04-0500 Body weight 72.58 kg Bibiana MONROY Work Phone: [facility] 06-06-2024 16:04-0500 Diastolic blood pressure 66 mm[Hg] Bibiana MONROY Work Phone: [facility] 06-06-2024 16:04-0500 Systolic blood pressure 110 mm[Hg] Bibiana Alcantara PA Work Phone: [facility] 05-21-2024 16:56-0500 Body mass index (BMI) [Ratio] 27.09 kg/m2 Jorge Luis Katrin DO Work Phone: [facility] 05-21-2024 16:56-0500 Body weight 71.58 kg Jorge Luis Katrin DO Work Phone: [facility] 05-21-2024 16:56-0500 Diastolic blood pressure 64 mm[Hg] Jorge Luis Katrin DO Work Phone: [facility] 05-21-2024 16:56-0500 Systolic blood pressure 106 mm[Hg] Jorge Luis Katrin DO Work Phone: [facility] 05-07-2024 16:39-0500 Body mass index (BMI) [Ratio] 26.09 kg/m2 Bibiana MONROY Work Phone: [facility] 05-07-2024 16:39-0500 Body weight 68.95 kg Bibiana MONROY Work Phone: [facility] 05-07-2024 16:39-0500 Diastolic blood pressure 68 mm[Hg] Bibiana MONROY Work Phone: [facility] 05-07-2024 16:39-0500 Systolic blood pressure 112 mm[Hg] Bibiana MONROY Work Phone: [facility] 04-16-2024 14:18-0400 Body height 160 cm Jeet Tavares MD Work Phone: [facility] 04-16-2024 14:18-0400 Body mass index (BMI) [Ratio] 26.39 kg/m2 Jeet Tavares MD Work Phone: [facility] 04-16-2024 14:18-0400 Body weight 67.59 kg Jeet Tavares MD Work Phone: [facility] 04-16-2024 14:18-0400 Diastolic blood pressure 78 mm[Hg] Jeet Tavares MD Work Phone: [facility] 04-16-2024 14:18-0400 Heart rate 102 /min Jeet Tavares MD Work Phone: [facility] 04-16-2024 14:18-0400 Systolic blood pressure 133 mm[Hg] Jeet Tavares MD Work Phone: [facility] 04-03-2024 14:57-0400 Body mass index (BMI) [Ratio] 25.4 kg/m2 Jorge Luis Katrin DO Work Phone: [facility] 04-03-2024 14:57-0400 Body weight 67.13 kg Jorge Luis Katrin DO Work Phone: [facility] 04-03-2024 14:57-0400 Diastolic blood pressure 64 mm[Hg] Jorge Luis Katrin DO Work Phone: [facility] 04-03-2024 14:57-0400 Systolic blood pressure 100 mm[Hg] Jorge Luis Katrin DO Work Phone: [facility] 03-05-2024 16:05-0400 Body mass index (BMI) [Ratio] 23.54 kg/m2 Bibiana Alcantara PA Work Phone: [facility] 03-05-2024 16:05-0400 Body weight 62.2 kg Bibiana Alcantara PA Work Phone: [facility] 03-05-2024 16:05-0400 Diastolic blood pressure 74 mm[Hg] Bibiana Alcantara PA Work Phone: [facility] 03-05-2024 16:05-0400 Systolic blood pressure 112 mm[Hg] Bibiana Alcantara PA Work Phone: [facility] 02-06-2024 15:48-0400 Body mass index (BMI) [Ratio] 23.25 kg/m2 Jorge Luis Katrin DO Work Phone: [facility] 02-06-2024 15:48-0400 Body weight 61.43 kg Jorge Luis Katrin DO Work Phone: [facility] 02-06-2024 15:48-0400 Diastolic blood pressure 74 mm[Hg] Jorge Luis Katrin DO Work Phone: [facility] 02-06-2024 15:48-0400 Systolic blood pressure 112 mm[Hg] Jorge Luis Katrin DO Work Phone: [facility] 08-18-2021 18:08-0500 Body weight 63.[address] RODNEY CAPUTO [facility] Comment on above: Performed By: #### [id number] #### [facility] [address] [place] [address] Dr. Parth Lucero Encounters Encounter Date Encounter Type Care Provider Facility Start: 08-10-2024 End: 08-10-2024 Clinisync Result Encounter Jorge Luis Katrin DO Work Phone: [facility] External Department Unsolicited Start: 08-10-2024 End: 08-10-2024 Clinisync Result Encounter Jorge Luis Katrin DO Work Phone: [facility] External Department Unsolicited Start: 08-08-2024 End: 08-08-2024 [...] End: 05-15-2024 ambulatory JORGE LUIS R KATRIN [facility] Start: 05-07-2024 End: 05-07-2024 flow sheet Bibiana MONROY Work Phone: [facility] Comment on above: 26 weeks gestation o f ; Second trimester ; Elevated glucose tolerance test Start: 05-07-2024 End: 05-07-2024 ambulatory BIBIANA ALCANTARA Not Available Start: 05-07-2024 End: 05-07-2024 Bamboo flowsheet Bibiana MONROY Work Phone: [facility] Start: 05-07-2024 End: 05-07-2024 Bamboo [...] Encounter Jorge Luis Katrin DO Work Phone: [facility] External Department Unsolicited Start: 04-16-2024 End: 04-16-2024 Office outpatient new 45 minutes Jeet Tavares MD Work Phone: [facility] Comment on above: Echogenic focus of h eart of fetus affecting antepartum care of mother, single or unspecified fetus (Primary Dx); Low lying placenta, antepartum; Suspected condition not found; Family history of congenital heart defect; 23 weeks gestation of Start: 04-16-2024 End: 04-16-2024 ambulatory [facility] Start: 04-11-2024 End: 04-11-2024 Chart abstracting Jeet Tavares MD Work Phone: [facility] Start: 04-03-2024 End: 04-03-2024 flow [...] (routine) without abnormal findings DR RODNEY CAPUTO [facility] Start: 08-26-2021 End: 08-26-[address] [...] Work Phone: Start: 08-06-2024 [facility] UA (CLEAN/CATCH) UNIVERSITY MANAGER/MICRO IF IND. Jorge Luis Katrin DO Work Phone: Start: 07-24-2024 Urnls dip stick/tabl et rgnt non-auto w/o micrscp Bibiana MONROY Work Phone: Start: 07-18-2024 Urnls dip stick/tabl et rgnt non-auto w/o micrscp Jorge Luis Vazquezo DO Work Phone: Start: 07-18-2024 ALL MISCELLANEOUS TEST Jorge Luis Wilkes DO Work Phone: Start: 07-16-2024 [facility] UA (CLEAN/CATCH) UNIVERSITY MANAGER/MICRO IF IND. Jorge Luis Wilkes DO Work [...] auto t hin layer prep mnl screen [facility] DO Work Phone: Start: 03-05-2024 URETHRITIS/DISCHARGE PLUS VAGINITIS (HTRX) Bibiana MONROY Work Phone: Start: 02-06-2024 Urnls dip stick/tabl et rgnt non-auto w/o micrscp [facility] DO Work Phone: Start: 01-27-2024 Antibody screen [...] Screening for malign ant neoplasm of cervix [facility] Start: 04-16-2025 Adult BMI Screening Adult BMI Screen ing [facility] Start: 04-16-2025 Tobacco Screening Tobacco Screening [facility] Start: 08-08-2024 End: 08-08-2024 Patient encounter procedure 08/08/2024 3:20 PM EST Routine [facility] [address] [facility] [place] [id number] Jorge Luis Wilkes, DO [address] [facility] [place] [address] [facility] Start: 08-01-2024 End: 08-01-2024 Patient encounter procedure 08/01/2024 3:00 PM EST Routine [facility] [address] [facility] [place] [id number] Jorge Luis Wilkes, DO [address] [place] [address] [facility] Start: 07-24-2024 End: 07-24-2024 Patient encounter procedure 07/24/2024 2:50 PM EST Routine [facility] [address] [place] [phone] Bibiana Alcantara PA [address] [facility] [place] [address] [facility] Start: 07-18-2024 End: 07-18-2024 [...] PM EST Routine [facility] [address] [facility] [place] [place] [id number] Jorge Luis Wilkes, DO [address] [place] [address] [facility] Start: 06-27-2024 End: 06-27-2025 US for US OB follow up transabdominal approach Imaging Routine Excessive growth affecting management of , antepartum, single or unspecified fetus Expected: 06/27/2024, Expires: 06/27/2025 [facility] Work Phone: Comment on above: Expected: 06/27/2024 , Expires: 06/27/2025 Start: 05-21-2024 End: 05-21-2024 Patient encounter procedure 05/21/2024 3:50 PM EST Routine [facility] [address] [place] [id number] Jorge Luis Wilkes, DO [address] [place] [address] [facility] Start: 05-15-2024 End: 05-15-2024 Patient encounter procedure 05/15/2024 10:15 AM EST Appointment [facility] - Ultrasound [address] [place] [address] [facility] - Ultrasound Start: 05-07-2024 End: 05-07-2024 [...] End: 04-16-2024 Patient encounter procedure [facility] Start: 04-04-2024 End: 04-04-2024 Patient encounter procedure 04/04/2024 3:10 PM EDT Routine [facility] [address] [facility] [place] [phone] Jorge Luis Wilkes, DO [address] [place] [address] [facility] Start: 04-03-2024 End: 04-03-2024 Patient encounter procedure 04/03/2024 2:20 PM EDT Routine [facility] [address] [facility] [place] [phone] Jorge Luis Wilkes, DO [address] [place] [address] Arrived [facility] Comment on above: Arrived Start: 04-03-2024 End: 04-03-2025 CBC panel - Blood by Automated count CBC Lab Routine Diabetes mellitus screening Expected: 04/03/2024 (Approximate), Expires: 04/03/2025 [facility] Comment on above: Expected: 04/03/2024 (Approximate), Expires: 04/03/2025 Start: 04-03-2024 End: 04-03-2025 Measurement of glucose 1 hour after glucose challenge for glucose tolerance test Glucose tolerance, 1 hour Lab Routine Diabetes mellitus screening Expected: 04/03/2024 (Approximate), Expires: 04/03/2025 [facility] Comment on above: Expected: 04/03/2024 (Approximate), Expires: 04/03/2025 Start: 04-03-2024 End: 04-03-2025 US for US OB INCOMPLETE ANATOMY Imaging Routine Encounter for follow-up ultrasound of anatomy Expected: 04/03/2024 (Approximate), Expires: 04/03/2025 [facility] Work Phone: Comment on above: Expected: 04/03/2024 (Approximate), Expires: 04/03/2025 Start: 03-05-2024 End: 03-05-2024 Patient encounter procedure [facility] Comment on above: Arrived Start: 03-05-2024 End: 09-02-2024 Alpha fetoprotein, maternal Alpha fetoprotein, maternal Lab Routine Second trimester Expected: 03/05/2024 (Approximate), Expires: 09/02/2024 [facility] Comment on above: Expected: 03/05/2024 (Approximate), Expires: 09/02/2024 Start: 03-05-2024 End: 03-05-2025 US for US OB ANATOMY SINGLE W US OB CERVICAL LENGTH Imaging Routine Screening, , for anatomic survey Expected: 03/05/2024 (Approximate), Expires: 03/05/2025 [facility] Comment on above: Expected: 03/05/2024 (Approximate), Expires: 03/05/2025 Start: 02-19-2024 Influenza vaccination [facility] Start: 10-15-2021 Screening for malign ant neoplasm of cervix [facility] Start: 10-15-2012 Screening for malign ant neoplasm of cervix Pap Smear [facility] Start: 10-15-2010 DTaP,Tdap and Td Vaccines (1 - Tdap) DTaP,Tdap and Td Vaccines (1 - Tdap) [facility] Start: 10-15-2009 Adult BMI Follow Up Plan Adult BMI Follow Up Plan [facility] Start: 10-15-2009 Adult BMI Screening Adult BMI Screen ing [facility] Start: 2003 Depression Screening Depression Scre ening [facility] Start: 2003 Tobacco Screening Tobacco Screening [facility] CHLAMYDIA TRACHOMATI S (GENITO/STI) CHLAMYDIA TRACHOMATIS (GENITO/STI) Lab Routine STD exposure Ordered: 03/05/2024 [facility] Comment on above: Ordered: 03/05/2024 Cytology Cervical or vaginal smear or scraping study Pap Smear Pathology and Cytology Routine Well woman exam with routine gynecological exam Ordered: 03/05/2024 [facility] Work Phone: Comment on above: Ordered: 03/05/2024 Human papilloma viru s DNA [Presence] in Unspecified specimen by Probe with amplification HPV DNA probe, amplified Microbiology Routine Well woman exam with routine gynecological exam Ordered: 03/05/2024 [facility] Comment on above: Ordered: 03/05/2024 Neisseria gonorrhoea e DNA [Presence] in Unspecified specimen by RIGOBERTO with probe detection Neisseria gonorrhea DNA probe, direct Lab Routine STD exposure Ordered: 03/05/2024 [facility] Comment on above: Ordered: 03/05/2024 SURESWAB(R) ADVANCED VAGINITIS PLUS, TMA SURESWAB(R) ADVANCED VAGINITIS PLUS, TMA Pathology and Cytology Routine Vaginal discharge Ordered: 03/05/2024 [facility] Comment on above: Ordered: 03/05/2024 Payers Date Payer Category Payer Private Health Insurance [employer] [id number] 2017 Unknown [employer] [id number] 2017-Present [address] [place] [address] [id number] 1991 Unknown [id number] 2.840.1.416186.3.579.2. 593 1991 Unknown [id number] 2.840.1.908568.3.579.2. 593 1991 Unknown [id number] 2.16840.1.741301.3.579.2. 593 1991 Unknown [id number] 2.16840.1.168242.3.579.2. 593 1991 Unknown [id number] 2.16840.1.695245.3.579.2. 593 1991 Unknown [id number] 2.16840.1.875771.3.579.2. 593 1991 Unknown [id number] 2.16.840.1.760747.3.579.2. 593 1991 Unknown [id number] 2.16.840.1.767538.3.579.2. 593 1991 Unknown [id number] 2.16.840.1.139677.3.579.2. 593 1991 Unknown [id number] 2.16840.1.423041.3.579.2. 593 1991 Unknown [id number] 2.16840.1.693998.3.579.2. 593 1991 Unknown [id number] 2.16840.1.322711.3.579.2. 593 1991 Unknown [id number] 2.840.1.910918.3.579.2. 593 1991 Unknown [id number] 2.16840.1.317465.3.579.2. 593 1991 Unknown [id number] 2.16840.1.370135.3.579.2. 593 1991 Unknown [id number] 2.16840.1.005425.3.579.2. 1286 1991 Unknown [id number] 2.16840.1.585970.3.579.2. 1286 1991 Unknown [id number] 2.16840.1.790125.3.579.2. 1286 1991 Unknown [id number] 2.16840.1.583486.3.579.2. 1259 1991 Unknown [id number] 2.16840.1.386758.3.579.2. 1259 1991 Unknown [id number] 2.16840.1.634144.3.579.2. 1259 1991 Unknown [id number] 2.16840.1.139243.3.579.2. 9 1991 Unknown [id number] 2.16.840.1.436744.3.579.2. 1258 1991 Unknown [id number] 2.16.840.1.307619.3.579.2. 1258 1991 Unknown [id number] 2.16.840.1.522580.3.579.2. 1258 1991 Unknown [id number] 2.16.840.1.031190.3.579.2. 1258 1991 Unknown [id number] 2.16.840.1.308252.3.579.2. 1258 1991 Unknown [id number] 2.16.840.1.633764.3.579.2. 1258 1991 Unknown [id number] 2.16.840.1.573622.3.579.2. 1258 1991 Unknown [id number] 2.16.840.1.603673.3.579.2. 1258 1991 Unknown [id number] 2.16.840.1.930661.3.579.2. 1258 1991 Unknown [id number] 2.16.840.1.354931.3.579.2. 1258 1991 Unknown [id number] 2.16.840.1.855816.3.579.2. 1258 1991 Unknown [id number] 2.16.840.1.202261.3.579.2. 1258 1991 Unknown [id number] 2.16.840.1.578136.3.579.2. 1258 1991 Unknown [id number] 2.16840.1.549346.3.579.2. 9 1959 Self-pay 1959 Unknown [id number] [employer] are - [facility] [employer] [id number]. [id number] Unknown [id number] 2.16.840.1.258667.3.579.2. 593 Social History Date Type Detail Facility [...] Healthcare Start: 04-10-2024 Sex Female (finding) [facility] Within the past 12 [...] Luis Wilkes DO documented in this encounter [facility] 08-01-2024 History of Present illness Narrative Reason [...] nursing note reviewed. Exam conducted with a senior project manager engineering present. Vitals: Estimated body mass index is [...] Luis Wilkes DO documented in this encounter [facility] 07-24-2024 History of Present illness [...] of: ELIANA Candelaria documented in this encounter [facility] 07-18-2024 History of Present illness [...] Luis Wilkes DO documented in this encounter [facility] 07-11-2024 History of Present illness [...] Mother Melita Lokesh Rheum arthritis Mother Melita [place] Hypertension Father Bryant Campa SURGICAL HISTORY Past [...] of: ELIANA Candelaria documented in this encounter [facility] 06-27-2024 History of Present illness [...] nursing note reviewed. Exam conducted with a senior project manager engineering present. Vitals: Estimated body mass index is [...] Luis Wilkes DO documented in this encounter [facility] 06-06-2024 History of Present illness [...] of: ELIANA Candelaria documented in this encounter [facility] 05-21-2024 History of Present illness [...] Luis Wilkes DO documented in this encounter [facility] 05-07-2024 History of Present illness [...] Pt was scheduled to go back to [facility] in 4 weeks for a f/up US visit for Echo focus of fetus. Pt states she is unable to make the appt and would like to have the US done here in [place]. Follow Up: Patient is to return to office in 2 week for routine OB appointment. Documented by Maggie Prieto MA on behalf of: ELIANA Candelaria documented in this encounter [facility] 04-16-2024 History of Present illness [...] Start Date End Date Taking? Authorizing Provider [id number] mg-mcg tablet Take 1 tablet [...] with routine care in your office [facility], the CDC, and other organizations representing maternal and public health professionals recommend that , , and lactating people and those considering receive the COVID-19 vaccination. Vaccination is the best method to reduce maternal and complications of SARS-CoV-2 infection. This document was created with [employer] technology. Though I make every effort to review the dictation as it is transcribed, on occasion the spoken word can be misinterpreted by the technology leading to inappropriate words, phrases, or sentences. This note is addressed to the requesting provider as a consultation for clinical guidance. Specific medical abbreviations are occasionally used and those are generally approved by the [place]?Board of?Obstetrics and?Gynecology?as well as?Steve s abbreviations. The above plan of care was based solely on the diagnoses for which a consultation was requested. ?More frequent testing may be indicated based on her other medical/obstetrical conditions. The management of other or medical conditions is beyond the scope of requested consultation and will continue to be followed by the primary cost control specialist or primary care provider. Thank you for [...] procedures Referring and communicating with other health occasional caregiver (not separately reported) Documenting clinical information [...] yes Have you been seen here at [facility] in a previous ? no Recent ER visits or hospitalizations? no Bring blood sugar log or meter with you today? (Please bring them with you for every visit at [facility]) n/a Flu vaccine (Apr-August)? no Any concerns that you would like me to mention to the provider today? no documented in this encounter [employer] 04-03-2024 History of Present illness Narrative Reason [...] nursing note reviewed. Exam conducted with a senior project manager engineering present. Vitals: Estimated body mass index is [...] Luis Wilkes DO documented in this encounter [facility] 03-05-2024 History of Present illness [...] nursing note reviewed. Exam conducted with a senior project manager engineering present. Vitals: Estimated body mass index is [...] obtained without difficulty and patient was given [facility] order to have obtained. Orders Placed [...] of: ELIANA Candelaria documented in this encounter [facility] 02-06-2024 History of Present illness [...] nursing note reviewed. Exam conducted with a senior project manager engineering present. Vitals: Estimated body mass index is [...] or undercooked meat, and stay away from [facility]. Patient has been consulted regarding any further do's and don'ts of . Patient voiced understanding and all questions and concerns were answered. Orders Placed This Encounter Procedures POCT urinalysis dipstick manually resulted Follow Up: Patient is to return in 4 weeks for routine OB appointment. Documented by Pooja Mendez LPN on behalf of: Jorge Luis Wilkes DO documented in this encounter [facility] Healthcare Evaluation note Diagnosis 21 weeks gestation [...] encounter [facility] HealthcareInstructionsNot on filedocumented in this encounterProMediSelect [facility] SystemInstructionsNot on filedocumented in this encounterProOhiohealth [facility] Summary Purpose Family History No [...] content) DATE CREATED AUTHOR 06/06/2021 Maged Vázquez [facility] DATE CREATED AUTHOR AUTHOR'S ORGANIZ ATION 05/12/2022 [facility] DATE CREATED AUTHOR AUTHOR'S ORGANIZ ATION 04/17/2024 [facility] DATE CREATED AUTHOR AUTHOR'S ORGANIZ ATION 05/17/2024 [facility] DATE CREATED AUTHOR AUTHOR'S ORGANIZ ATION 08/10/2024 [facility] [employer] Care Teams (unrecognized sec tion and content) Director Software Development 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 Specialty Start Date End Date Tamir Fuentes MD [address] [place] [address] PCP - General Family Medicine 10/12/23 Merlene Choe MD [address] [place] [address] Referring Physician Internal Medicine 10/12/23 Director Software Development 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 Specialty Start Date End Date Tamir Fuentes MD [address] [place] [address] PCP - General Family Medicine 10/12/23 Merlene Choe MD [address] [place] [address] Referring Physician Internal Medicine 10/12/23 Director Software Development 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 Specialty Start Date End Date Tamir Fuentes MD [address] [place] [address] PCP - General Family Medicine 10/12/23 Bibiana Alcantara PA [address] [place] [address] [place] [address] PCP - Medical [employer] 06/20/17 06/19/99 Merlene Choe MD [address] [place] [address] Referring Physician Internal Medicine 10/12/23 Director Software Development 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 Specialty Start Date End Date Tamir Fuentes MD [address] [place], [place] [id number] PCP - General Family Medicine 10/12/23 Bibiana Alcantara PA [address] [place] [address] [place] [address] PCP - Medical [employer] 06/20/17 06/19/99 Merlene Choe MD [address] [place] [address] Referring Physician Internal Medicine 10/12/23 Director Software Development 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 Specialty Start Date End Date Tamir Feuntes MD [address] [place] [address] PCP - General Family Medicine 10/12/23 Bibiana Alcantara PA [address] [place] [address] [place] [address] PCP - Medical [employer] 06/20/17 06/19/99 Merlene Choe MD [address] [place] [address] Referring Physician Internal Medicine 10/12/23 Director Software Development 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 Specialty Start Date End Date Tamir Fuentes MD [address] [place], [place] [id number] PCP - General Family Medicine 10/12/23 Bibiana Alcantara PA [address] [place] [address] [place], [place] [id number] PCP - Medical [employer] 06/20/17 06/19/99 Merlene Choe MD [address] [place] [address] Referring Physician Internal Medicine 10/12/23 Director Software Development 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 Specialty Start Date End Date Tamir Fuentes MD [address] [place] [id number] PCP - General Family Medicine 10/12/23 Merlene Choe MD [address] [place] [place] [address] Referring Physician Internal Medicine 10/12/23 Director Software Development 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 Specialty Start Date End Date Tamir Fuentes MD [address] [place] [id number] PCP - General Family Medicine 10/12/23 Merlene Choe MD [address] [place] [place] [address] Referring Physician Internal Medicine 10/12/23 Director Software Development 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 Specialty Start Date End Date Tamir Fuentes MD [address] [place] [address] PCP - General Family Medicine 10/12/23 Bibiana Alcantara PA [address] [place] [address] [place] [address] PCP - Medical [employer] 06/20/17 06/19/99 Merlene Choe MD [address] [place] [address] Referring Physician Internal Medicine 10/12/23 Director Software Development 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 Specialty Start Date End Date Tamir Fuentes MD [address] [place] [address] PCP - General Family Medicine 10/12/23 Bibiana Alcantara PA [address] [place] [address] [place] [address] PCP - Medical [employer] 06/20/17 06/19/99 Merlene Choe MD [address] [place] [address] Referring Physician Internal Medicine 10/12/23 Director Software Development 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 Specialty Start Date End Date Tamir Fuentes MD [address] [place] [address] PCP - General Family Medicine 10/12/23 Bibiana Alcantara PA [address] [place] [address] [place] [address] PCP - Medical [employer] 06/20/17 06/19/99 Merlene Choe MD [address] [place] [address] Referring Physician Internal Medicine 10/12/23 Director Software Development 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 Specialty Start Date End Date Tamir Fuentes MD [address] [place] [address] PCP - General Family Medicine 10/12/23 Bibiana Alcantara PA [address] [place] [address] [place] [address] PCP - Medical [employer] 06/20/17 06/19/99 Merlene Choe MD [address] [place] [phone] Referring Physician Internal Medicine 10/12/23 Director Software Development 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 Specialty Start Date End Date Tamir Fuentes MD [address], [facility] PCP - General Family Medicine 10/12/23 Bibiana Alcantara PA [address] [place] [address] [place] [address] PCP - Medical [employer] 06/20/17 06/19/99 Merlene Choe MD [address] [place] [phone] Referring Physician Internal Medicine 10/12/23 Director Software Development 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 Specialty Start Date End Date Tamir Fuentes MD [address] [place] [address] PCP - General Family Medicine 10/12/23 Bibiana Alcantara PA [address] [place] [address] [place] [address] PCP - Medical [employer] 06/20/17 06/19/99 Merlene Choe MD [address] [place] [address] Referring Physician Internal Medicine 10/12/23 Director Software Development 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 Specialty Start Date End Date Tamir Fuentes MD [address] [place] [address] PCP - General Family Medicine 10/12/23 Bibiana Alcantara PA [address] [place] [address] [place] [id number] PCP - Medical [employer] 06/20/17 06/19/99 Merlene Choe MD [address] [place] [phone] Referring Physician Internal Medicine 10/12/23 Director Software Development 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 Specialty Start Date End Date Tamir Fuentes MD [address] [place] [id number] PCP - General Family Medicine 10/12/23 Bibiana Alcantara PA [address] [place] [address] [place] [address] PCP - Medical [employer] 06/20/17 06/19/99 Merlene Choe MD [address] [place] [address] Referring Physician Internal Medicine 10/12/23 Reason for [...] BE BASED ON THE PRIMARY CLINICAL RECORDS. [facility] [employer] [facility]. provides no warranty or guarantee of the accuracy or completeness of information in this document.
[2024-08-16 13:00] VITALS: BP 126/90; PULSE 120; TEMP 36.9; O2SAT 98
--- NOTE | 2024-08-16 13:00 | PC.NURSE ---
Cindy arrives for follow up today with baby Maricel. Cindy reports things at home are an adjustment and she is doing well. Reports small-scant bleeding, no headache, blurry vision, spotty vision, tightness in chest or shortness of breath. Passing gas and regular bowel movements. Sleeping 4-6 hours a night. States baby is sleeping in 2-3 hour stretches at night, sleeping well during rests and napping during the day when her toddler is also napping. Cindy states she was in the ER over the weekend for suspected high blood pressure, states that everything was normal and they told me it was just over exhaustion. Patient states she thinks her elevated blood pressure was due to anxiety and restlessness as well as little sleep adjusting to new baby coming home, states she is feeling a little better. When inquired about mood changes this week, Cindy becomes tearful, states, I'm just so sad and it's silly because there's really no reason for it, I'm just sad. 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 She was never medicated, and said, It came on after my last baby....and it never really left. Cindy states she has never taken anything for depression or anxiety before, she doesn't like taking medication of any kind, really. Discussed risks and benefits of medication therapy to help regulate emotions and changes with hormones during this period as well. Cindy continues crying during conversation, continues stating, It doesn't really make a lot of sense, I'm just sad. Discussed talking to Dr. Wilkes about outpatient mental health counseling or medication therapy, patient states I'd like to give it another week and kind of see how things go...I know baby blues can last a week or two and I don't want to mcbride anything. Patient states she is still bonding well with the baby, and she feels safe at home. Patient denies any thoughts of self harm or self injury. Much encouragement given, and patient pulls baby out of car seat. Weight and vitals obtained, baby above weight at one week old. Cindy smiles knowing baby's weight is above weight, states, Well at least I'm doing that right. Encouragement given to patient. Cindy puts baby to breast, latches easily and nurses well for 20 minutes. Follow up appointment offered and accepted, scheduled for next with Blanca for check and to check on Cindy and her mental wellbeing. Discharged to home, Cindy has department phone number and phone number for Dr. Wilkes's office as well in the event she needs to reach out sooner than next week. Discharged home with baby.
== END 2024-08-16 13:30 | disposition home or self-care (01) ==
PROVIDERS: Visit Provider Obstetrics & Gynecology
DX: Z39.2 Encounter for routine postpartum follow-up (principal)

== ENCOUNTER 2024-09-20 17:55 | Outpatient (REF) | payer OTHER, SELFPAY | END 2024-09-20 17:56 | disposition home or self-care (01) | LOC: LAB 17:55 | PROVIDERS: Visit Provider Physician Assistant | DX: L73.1 Pseudofolliculitis barbae (principal) | CPT/HCPCS: 87070 ==